=== PATIENT | male | born 1935 | race Caucasian/White ===

== ENCOUNTER 2022-11-17 08:47 | Outpatient (OUT) | payer MEDICARE, SELFPAY ==
[2022-11-17 09:24] LABS: INR 1.84; Prothrombin Time 18.8 sec (9.0-11.6)
== END 2022-11-17 08:48 | disposition home or self-care (01) ==
PROVIDERS: PCP Family Medicine; Visit Provider Nurse Practitioner Family
DX: I48.0 Paroxysmal atrial fibrillation (principal)
CPT/HCPCS: 36415; 85610

== ENCOUNTER 2022-12-06 08:56 | Outpatient (OUT) | payer MEDICARE, SELFPAY ==
[2022-12-06 10:18] LABS: INR 2.43; Prothrombin Time 24.5 sec (9.0-11.6)
== END 2022-12-06 08:57 | disposition home or self-care (01) ==
PROVIDERS: PCP Family Medicine; Visit Provider Nurse Practitioner Family
DX: I48.0 Paroxysmal atrial fibrillation (principal)
CPT/HCPCS: 36415; 85610

== ENCOUNTER 2023-01-10 09:15 | Outpatient (OUT) | payer MEDICARE, SELFPAY ==
[2023-01-10 09:46] LABS: INR 2.86; Prothrombin Time 28.6 sec (9.0-11.6)
== END 2023-01-10 09:16 | disposition home or self-care (01) ==
PROVIDERS: PCP Family Medicine; Visit Provider Nurse Practitioner Family
DX: I48.0 Paroxysmal atrial fibrillation (principal)
CPT/HCPCS: 36415; 85610

== ENCOUNTER 2023-02-13 09:05 | Outpatient (OUT) | payer MEDICARE, SELFPAY ==
[2023-02-13 09:51] LABS: INR 2.43; Prothrombin Time 24.5 sec (9.0-11.6)
== END 2023-02-13 09:06 | disposition home or self-care (01) ==
LOC: LAB 09:06
PROVIDERS: PCP Family Medicine
DX: I48.0 Paroxysmal atrial fibrillation (principal)
CPT/HCPCS: 36415; 85610

== ENCOUNTER 2023-03-16 09:03 | Outpatient (OUT) | payer MEDICARE, SELFPAY ==
[2023-03-16 10:00] LABS: Prothrombin Time 20.4 sec (9.0-11.6)
== END 2023-03-16 09:04 | disposition home or self-care (01) ==
PROVIDERS: PCP Family Medicine; Visit Provider Nurse Practitioner Family
DX: I48.0 Paroxysmal atrial fibrillation (principal)
CPT/HCPCS: 36415; 85610

== ENCOUNTER 2023-03-28 08:59 | Outpatient (OUT) | payer MEDICARE, SELFPAY ==
--- NOTE | 2023-03-28 09:05 | XR_ITS ---
The [address] [address] Patient Name: RIO HUYNH MRN: [id number] date: 1935 Sex: M Assigned Patient Location: [facility] Current Patient Location: [facility] Accession/Order Number: [id number] Exam Date: 03/28/2023 09:18 Report Date: 03/28/2023 14:50 At the request of: LOU BRUSH Procedure: XR cervical spine 2-3V EXAMINATION: XR cervical spine 2-3V HISTORY: Neck Pain M54.2 ; chronic posterior-left neck pain radiating to the ear COMPARISON: No relevant comparison available. FINDINGS: BONES: Multilevel degenerative changes of the facet joints; no disruption or abnormal widening. Normal height and alignment of the vertebral bodies. DISC SPACES: Moderate narrowing C3-4 and C6-7. Mild narrowing C5-6. PARASPINOUS: Negative. No paraspinous abnormality is seen. OTHER: Negative. XR/XR cervical spine 2-3V IMPRESSION: 1. 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 No acute abnormality. Electronically authenticated by: JIE ROBERTS Date: 03/28/2023 14:50
== END 2023-03-28 09:00 | disposition home or self-care (01) ==
LOC: RAD 09:00
PROVIDERS: PCP Family Medicine; Visit Provider Family Medicine
DX: M54.2 Cervicalgia (principal); I48.0 Paroxysmal atrial fibrillation
CPT/HCPCS: 72040

== ENCOUNTER 2023-04-17 09:19 | Outpatient (OUT) | payer MEDICARE, SELFPAY ==
[2023-04-17 10:07] LABS: INR 1.68; Prothrombin Time 17.3 sec (9.0-11.6)
== END 2023-04-17 09:20 | disposition home or self-care (01) ==
PROVIDERS: PCP Family Medicine; Visit Provider Nurse Practitioner Family
DX: I48.0 Paroxysmal atrial fibrillation (principal)
CPT/HCPCS: 36415; 85610

== ENCOUNTER 2023-05-17 09:14 | Outpatient (OUT) | payer MEDICARE, SELFPAY ==
--- OUTSIDE RECORDS SUMMARY | 2023-05-17 09:19 | XMS_ITS | CCD ---
Author Name Unknown Address [address] [place] [address] [facility] [place] Care Team Providers Care Fan Blade Aligner Name Role Phone Phil Morin Unavailable Unavailable Unavailable DO Phil Morin Primary Care Provider MD Renetta Langston Attending Provider Karlie Craig Unavailable Unavailable Florentino Hernadez Unavailable Unavailable Furlong, DO Villarreal Primary Care Provider MD Renetta Langston Attending Provider Gadiel Estevez Unavailable Unavailable Furlong, DO Villareral Primary Care Provider MD Renetta Langston Attending Provider SUSANNAH, DR JARON Roger Admitting Unavailable KUNS, DR JARON Roger Consulting Unavailable SUSANNAH, DR JARON Roger Attending Unavailable FURLONG, DR PHIL Soliz Primary Care Unavailable FURLONG, DR PHIL Soliz Consulting Unavailable FURLONG, DR PHIL Soliz Admitting Unavailable FURLONG, DR PHIL Soliz Attending Unavailable FURLONG, DR PHIL Soliz Primary Care Unavailable KUNS, DR JARON Roger Consulting Unavailable SUSANNAH, DR JARON Roger Attending Unavailable FURLONG, DR PHIL Soliz Primary Care Unavailable KUNShalonda, DR JARON Roger Admitting Unavailable SUSANNAH, DR JARON Roger Consulting Unavailable SUSANNAH, DR JARON Roger Attending Unavailable KUNShalonda, DR JARON Roger Admitting Unavailable FURLONG, DR PHIL Soliz Primary Care Unavailable KUNShalonda, DR JARON Roger Consulting Unavailable SUSANNAH, DR JARON Roger Attending Unavailable SUSANNAH, DR JARON Roger Admitting Unavailable FURLONG, DR PHIL Soliz Primary Care Unavailable KUNShalonda, DR JARON Roger Consulting Unavailable KUNShalonda, DR JARON Roger Attending Unavailable KUNS, DR JARON Roger Admitting Unavailable FURLONG, DR PHIL Soliz Primary Care Unavailable FURLONG, DR PHIL Soliz Consulting Unavailable FURLONG, DR PHIL Soliz Attending Unavailable FURLONG, DR PHIL Soliz Admitting Unavailable FURLONG, DR PHIL Soliz Primary Care Unavailable FURLONG, DR PHIL Soliz Consulting Unavailable FURLONG, DR PHIL Soliz Admitting Unavailable FURLONG, DR PHIL Soliz Attending Unavailable FURLONG, DR PHIL Soliz Primary Care Unavailable FURLONG, DR PHIL Soliz Consulting Unavailable FURLONG, DR PHIL Soliz Attending Unavailable FURLONG, DR PHIL Soliz Admitting Unavailable FURLONG, DR PHIL Soliz Primary Care Unavailable FURLONG, DR PHIL Soliz Consulting Unavailable FURLONG, DR PHIL Soliz Admitting Unavailable FURLONG, DR PHIL Soliz Attending Unavailable FURLONG, DR PHIL Soliz Primary Care Unavailable FURLONG, DR PHIL Soliz Consulting Unavailable FURLONG, DR PHIL Soliz Admitting Unavailable FURLONG, DR PHIL Soliz Attending Unavailable FURLONG, DR PHIL Soliz Primary Care Unavailable FURLONG, DR PHIL Soliz Consulting Unavailable FURLONG, DR PHIL Soliz Admitting Unavailable FURLONG, DR PHIL Soliz Attending Unavailable FURLONG, DR PHIL Soliz Primary Care Unavailable FURLONG, DR PHIL Soliz Attending Unavailable FURLONG, DR PHIL Soliz Admitting Unavailable FURLONG, DR PHIL Soliz Primary Care Unavailable FURLONG, DR PHIL Soliz Consulting Unavailable HernadezFlorentino Attending Unavailable [facility], Dr. Ketan Andrews Referring Unavaila ble Furlong, Dr. Phil Forrest Primary Care Unava ilable Furlong, Dr. Phil Forrest Primary Care Unava ilable Furlong, Dr. Phil Forrest Primary Care Unava ilable Furlong, Dr. Phil Forrest Primary Care Unava ilable Furlong, Dr. Phil Forrest Primary Care Unava ilable Florentino Hernadez Referring Unavailable Honda, Dr. Rigo Webster Attending Unavailabl e Furlong, Dr. Phil Forrest Primary Care Unava ilable Furlong, Dr. Phil Forrest Primary Care Unava ilable Florentino Hernadez Referring Unavailable Honda, Dr. Rigo Webster Attending Unavailabl e HernadezFlorentino palma Referring Unavailable Furlong, Dr. Phil Forrest Primary Care Unava ilable Honda, Dr. Rigo Webster Attending Unavailabl e Florentino Hernadez Referring Unavailable Honda, Dr. Rigo Webster Attending Unavailabl e Furdestinyng, Dr. Phil Forrest Primary Care Unava ilable McGuinn II, Dr. Renetta Valero Attending Unavailable McGuinn II, Dr. Renetta Valero Referring Unavailable Furlong, Dr. Phil Forrest Primary Care Unava ilable Furlong, Dr. Phil Forrest Primary Care Unava ilable McGuinn II, Dr. Renetta Valero Attending Unavailable McGuinn II, Dr. Renetta Valero Referring Unavailable Thuener, Dr. Ketan Andrews Attending Unavaila ble Furlong, Dr. Phil Forrest Primary Care Unava ilable Florentino Hernadez Attending Unavailable Bain, Dr. George Menard Referring Unava ilable Furlong, Dr. Phil Forrest Primary Care Unava ilable Furlong, Dr. Phil Forrest Primary [facility] Unava ilable Florentino Hernadez Attending Unavailable UNKNOWN, UNKNOWN Referring Unavailable Austin, Phil Primary [facility] Provider MD Renetta Langston Attending [facility] Unavailable Renetta Langston Admitting Unavail able Renetta Langston Attending Unavail able Austin, Phil Primary Care Unavailable Renetta Langston Admitting Unavail able Renetta Langston Attending Unavail able Renetta Langston Admitting Unavail able Renetta Langston Attending Unavail able [place], [facility] Care Unavailable Renetta Langston Attending Unavail able Renetta Langston Admitting Unavail able [place], [facility] Unavailable Allergies Allergy Classification Reported Allergen(s) Allergy Type Date of Onset Reaction(s) Facility (10 sources) Aspirin; Translations: [aspirin] Drug Allergy Bleeding -[facility] 250 DO Work Phone: (1 source) No Alert Propensity to adverse reactions to drug 2 [facility] Medications Current Medications Medication Drug Class(es) Dates Sig (Normalized) Sig (Original) carvedilol 6.25 mg oral tablet (18 sources) alpha-Adrenergic Gen, beta-Adrenergic Gen Start: 04-24-2014 Carvedilol Active TABLET July 19, 2019 1:00am eplerenone 25 mg oral tablet (18 sources) Aldosterone Antagonist Start: 04-24-2014 Eplerenone Active TABLET July 19, 2019 1:00am fluticasone propionate 0.05 mg/actuat metered dose nasal spray (4 sources) Corticosteroid Start: 07-19-2019 Fluticasone Propionate Active July 19, 2019 1:00am lisinopril 2.5 mg oral tablet (19 sources) Angiotensin Converting Enzyme Inhibitor Start: 07-19-2019 Lisinopril Active TABLET July 19, 2019 1:00am rosuvastatin calcium 20 mg oral tablet (18 sources) HMG-CoA Reductase Inhibitor Start: 07-19-2019 Rosuvastatin Active TABLET July 19, 2019 1:00am warfarin sodium 5 mg oral tablet (19 sources) Vitamin K Antagonist Start: 07-19-2019 Warfarin Active TABLET July 19, 2019 1:00am Start: 04-24-2014 Warfarin Sodiu m 5 MG Oral Tablet TAKE 1 TABLET DAILY.-Managed by PCP Quantity: 30 Refills: 0 Ordered: 24-Apr-2014 DO Start : 24-Apr-2014 Active Start: 04-24-2014 Warfarin Sodiu m 2.5 MG Oral Tablet as directed by PCP Quantity: 0 Refills: 0 Ordered: 24-Apr-2014 DO Start : 24-Apr-2014 Active Completed/Discontinued Medications Medication Drug Class(es) Dates Sig (Normalized) Sig (Original) furosemide 20 mg oral tablet (12 sources) Loop Diuretic Start: 11-16-2020 take 1 tablet by mouth once daily as needed Furosemide 20 MG Oral Tablet TAKE 1 TABLET DAILY NEEDED Quantity: 90 Refills: 3 Ordered: 02-May-2021 Renetta Langston MD Start : 16-Nov-2020 Active Magnesium (3 sources) take 1 tablet by mouth once daily Magnesium 200 MG Oral Tablet TAKE 1 TABLET DAILY DIRECTED. 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 Cancer of brain and nervous system (12 sources) History of malignant neoplasm of brain; Translations: [Personal history of malignant neoplasm of brain] Episodic Cardiac dysrhythmias (20 sources) Ventricular tachycardia; Translations: [Paroxysmal ventricular tachycardia] Onset: 06-07-2022 Chronic Cardiac dysrhythmias (12 sources) Palpitations; Translations: [Palpitations] Episodic Conduction disorders (12 sources) Automatic implantable cardiac defibrillator in situ; Translations: [Automatic implantable cardiac defibrillator in situ] Chronic Coronary atherosclerosis and other heart disease (20 sources) History of myocardial infarction; Translations: [Old myocardial infarction] Chronic Disorders of lipid metabolism (12 sources) Hyperlipidemia; Translations: [Other and unspecified hyperlipidemia] Chronic Essential hypertension (12 sources) Essential hypertension; Translations: [Unspecified essential hypertension] Chronic Malignant neoplasm without specification of site (9 sources) Malignant neoplastic disease; Translations: [Other malignant neoplasm without specification of site] Chronic Melanomas of skin (16 sources) Malignant melanoma; Translations: [Melanoma of skin, site unspecified] Onset: 04-03-2022 Chronic Neoplasms of unspecified nature or uncertain behavior (6 sources) Neoplasm of uncertain behavior of skin Onset: 03-23-2022 Episodic Other aftercare (12 sources) Drug therapy finding; Translations: [Long-term (current) use of other medications] Episodic Other lower respiratory disease (12 sources) Dyspnea on exertion; Translations: [Shortness of breath] Episodic Gianna-; endo-; and myocarditis; cardiomyopathy (except that caused by tuberculosis or sexually transmitted disease) (12 sources) Cardiomyopathy; Translations: [Other primary cardiomyopathies] Chronic Phlebitis; thrombophlebitis and thromboembolism (12 sources) H/O: Deep vein thrombosis; Translations: [Personal history of venous thrombosis and embolism] Episodic Residual codes; unclassified (12 sources) Body mass index 20-24 - normal; Translations: [Body Mass Index between 19-24, adult] Episodic Residual codes; unclassified (1 source) No current problems or disability; Translations: [Other specified conditions influencing health status] Onset: 10-11-2022 Episodic Transient cerebral ischemia (12 sources) Transient cerebral ischemia; Translations: [Unspecified transient cerebral ischemia] Chronic Unclassified (1 source) Encounter for adjustment and management of automatic implantable cardiac defibrillator; Translations: [Encounter for adjustment and management of automatic implantable cardiac defibrillator] Onset: 03-20-2023 Unclassified (1 source) Ventricular tachycardia, unspecified; Translations: [Ventricular tachycardia, unspecified] Onset: 03-20-2023 Past or Other Problems Problem Classification Problem Date Documented Da te Episodic/Chronic Residual codes; unclassified (12 sources) History finding; Translations: [Other specified conditions influencing health status] Resolved: 04-24-2014 Episodic Unclassified (12 sources) Never smoked tobacco; Translations: [Never a smoker] Results Test Name Value Interpretation Reference Range Facility Office Visit (Cardiology)on 01-12-2023 Follow-up visit Diagnoses/Problems Assessed Cardiomyopathy (425.4) (I42.9) 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,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) High risk medication use (V58.69) (Z79.899) Essential hypertension (401.9) (I10) 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 Prescriptions will not be filled unless you are compliant with your follow up appointments or have a follow up appointment scheduled as per instruction of your physician. Refills should be requested at the time of your visit. Pacemaker/Defibrillat or follow up per routine Follow up in [ 9] months Chief Complaint RIO JACOME is being seen for a 6-7 month follow-up of. History of Present Illness Patient returns in follow-up of problems as noted. In the interim he is done relatively well. He denies any orthopnea PND or dyspnea exertion he has had no hospitalizations for heart failure or anginal discomfort. As before he is somewhat depressed ever since the passing of his . He has none of the symptoms of coronary disease that preceded his original diagnosis. Treatment of risk factors for atherosclerotic disease including his hypertension and hyperlipidemia is reviewed and control is adequate and appropriate. Recent defibrillator checks are also reviewed with him and they demonstrate no underlying ventricular or atrial arrhythmias that would necessitate adjustments in pharmacologic therapy. Because of all the above we suggested continued therapy as before without change. Surgical History Problems History of Brain Surgery History of Cataract surgery History of Complete colonoscopy History Of Prior Surgery surgery for cancer History of Transurethral resection of bladder tumor Past Medical History Problems History of brain cancer (V10.85) (Z85.841) History of deep venous thrombosis (V12.51) (Z86.718) No pertinent past medical history Resolved Date: 24 Apr 2014 Current Meds Medication NameInstruction Carvedilol 6.25 MG Oral TabletTAKE 1 TABLET TWICE DAILY WITH MEALS. Eplerenone 25 MG Oral TabletTAKE 1 TABLET DAILY. Furosemide 20 MG Oral TabletTAKE 1 TABLET DAILY. Lisinopril 2.5 MG Oral TabletTAKE 1 TABLET DAILY. Rosuvastatin Calcium 20 MG Oral TabletTake 1 tablet daily Warfarin Sodium 5 MG Oral TabletTAKE 1 TABLET DAILY.-Managed by PCP Allergies Medication aspirin Adverse Reaction; Bleeding; Recorded By: Sherlyn Pringle; 12/13/2021 9:08:21 AM NonMedication No Known Environmental Allergies Recorded By: Rosemary Campos; 04/24/2014 1:30:55 PM No Known Food Allergies Recorded By: Rosemary Campos; 04/24/2014 1:30:55 PM Social History Problems Caffeine use (V49.89) (Z78.9) 2 cups coffee daily Never a smoker No alcohol use No illicit drug use Review of Systems Constitutional: not feeling tired. Eyes: no eyesight problems. ENT: no hearing loss and no nosebleeds. Cardiovascular: no intermittent leg claudication and as noted in HPI. Respiratory: no chronic cough and no shortness of breath. Gastrointestinal: no change in bowel habits and no blood in stools. Genitourinary: no urinary frequency and no hematuria. Skin: no skin rashes. Neurological: no seizures and no frequent falls. Psychiatric: no depression and not suicidal. All other systems have been reviewed and are negative for complaint. Vitals Vital Signs Recorded: [id number] 02:17PM Heart Rate72, Apical [id number], RUE, Sitting Cgiioaydv47, RUE, Sitting Height5 ft 9 in Yiankf209 lb BMI Amhkqbuzee59.78 kg/m2 BSA Calculated1.88 Tobacco Useb) No Falls Screening (Age 18+)a) No falls within the last year EKG done in office today. Physical Exam Constitutional: alert and in no acute distress. Eyes: no erythema, swelling or discharge from the eye . Neck: neck is supple, symmetric, trachea midline, no masses and no thyromegaly . Pulmonary: no increased work of breathing or signs of respiratory distress and lungs clear to auscultation. Cardiovascular: carotid pulses 2+ bilaterally with no bruit , JVP was normal, no thrills , regular rhythm, normal S1 and S2, no murmurs , pedal pulses 2+ bilaterally and no edema . Abdomen: abdomen non-tender, no masses and no hepatomegaly . Skin: skin warm and dry, normal skin turgor . Psychiatric judgment and insight is normal and oriented to person, place and time . Signatures Electronically signed by : Renetta Langston MD; Jan 13 2023 2:45PM EST (Author) Normal [facility] Tobacco Screening.on 023 Fall risk assessment a) No falls within the last year [facility] 250 DO Work Phone: Tobacco use status [facility] b) No [facility] 250 DO Work Phone: PROTIMEon 10-17-2022 INR Coag (PPP) [Relative time] 2.38 {INR} Normal [facility] Comment on above: Performed By: #### P T #### [facility] [address] [address] [address] Sariah Boyle INR GUIDELINES SEE BELOW Normal [facility] Comment on above: Result Comment: NHUNG RED INR: 2.0 - 3.0 CONDITIONS NOT LISTED BELOW 2.5 - 3.5 FOR PROSTHETIC HEART VALVE REPLACEMENT 2.5 - 3.5 RECURRENT THROMBOSIS Performed By: #### P T #### [facility] [address] [address] [address] Sariah Boyle PT Coag (PPP) [Time] 24.0 s Critically high 9.0-11.6 [facility] Comment on above: Performed By: #### P T #### [facility] [address] [place] [address] Dr. Sariah Boyle PROTIMEon 09-15-2022 INR Coag (PPP) [Relative time] 2.18 {INR} Normal [facility] Comment on above: Performed By: #### P T #### [facility] [address] [place] [address] Dr. Sariah Boyle INR GUIDELINES SEE BELOW Normal [facility] Comment on above: Result Comment: NHUNG RED INR: 2.0 - 3.0 CONDITIONS NOT LISTED BELOW 2.5 - 3.5 FOR PROSTHETIC HEART VALVE REPLACEMENT 2.5 - 3.5 RECURRENT THROMBOSIS Performed By: #### P T #### [facility] [address] [place] [address] Dr. Sariah Boyle PT Coag (PPP) [Time] 22.1 s Critically high 9.0-11.6 [facility] Comment on above: Performed By: #### P T #### [facility] [address] [place] [address] Dr. Sariah Boyle PROTIMEon 08-15-2022 INR Coag (PPP) [Relative time] 2.44 {INR} Normal [facility] Comment on above: Performed By: #### P T #### [facility] [address] [place] [address] Dr. Sariah Boyle INR GUIDELINES SEE BELOW Normal [facility] Comment on above: Result Comment: NHUNG RED INR: 2.0 - 3.0 CONDITIONS NOT LISTED BELOW 2.5 - 3.5 FOR PROSTHETIC HEART VALVE REPLACEMENT 2.5 - 3.5 RECURRENT THROMBOSIS Performed By: #### P T #### [facility] [address] [place] [address] Dr. Sariah Boyle PT Coag (PPP) [Time] 24.6 s Critically high 9.0-11.6 [facility] Comment on above: Performed By: #### P T #### [facility] [address] [address] [address] Sariah Boyle PROTIMEon 07-18-2022 INR Coag (PPP) [Relative time] 2.33 {INR} Normal [facility] Comment on above: Performed By: #### P T #### [facility] [address] [address] [address] Sariah Boyle INR GUIDELINES SEE BELOW Normal [facility] Comment on above: Result Comment: NHUNG RED INR: 2.0 - 3.0 CONDITIONS NOT LISTED BELOW 2.5 - 3.5 FOR PROSTHETIC HEART VALVE REPLACEMENT 2.5 - 3.5 RECURRENT THROMBOSIS Performed By: #### P T #### [facility] [address] [address] [address] Sariah Boyle PT Coag (PPP) [Time] 23.5 s Critically high 9.0-11.6 [facility] Comment on above: Performed By: #### P T #### [facility] [address] [place] [address] Dr. 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 Prescriptions will not be filled unless you are compliant with your follow up appointments or have a follow up appointment scheduled as per instruction of your physician. Refills should be requested at the time of your visit. Follow up in 6-9 months Chief Complaint RIO JACOME is being seen for a 6 month follow-up of. History of Present Illness Patient returns for follow-up of problems as noted. He is done relatively well. He denies any CHF or angina or arrhythmia symptoms. Symptoms that preceded his original diagnosis of coronary disease are discussed and he has no such symptoms. Control of risk factors including essential hypertension and hyperlipidemia is reviewed and his control is satisfactory and requires no adjustment. His ICD interrogation is lacking. Previous test results are reviewed and are satisfactory. He was encouraged to go to the clinic and have his device checked. He denies syncope or defibrillator shock. The patient states from time to time his activity intolerance but he does not give any symptoms suggestive of heart failure or angina because of this we believe his cardiac status to be stable. Surgical History Problems History of Brain Surgery History of Cataract surgery History of Complete colonoscopy History Of Prior Surgery surgery for cancer History of Transurethral resection of bladder tumor Past Medical History Problems History of brain cancer (V10.85) (Z85.841) History of deep venous thrombosis (V12.51) (Z86.718) No pertinent past medical history Resolved Date: 24 Apr 2014 Current Meds Medication NameInstruction Carvedilol 6.25 MG Oral TabletTAKE 1 TABLET TWICE DAILY WITH MEALS. Eplerenone 25 MG Oral TabletTAKE 1 TABLET DAILY. Furosemide 20 MG Oral TabletTAKE 1 TABLET DAILY. Lisinopril 2.5 MG Oral TabletTAKE 1 TABLET DAILY. Rosuvastatin Calcium 20 MG Oral TabletTake 1 tablet daily Warfarin Sodium 5 MG Oral TabletTAKE 1 TABLET DAILY.-Managed by PCP Allergies Medication aspirin Adverse Reaction; Bleeding; Recorded By: Sherlyn Pringle; 12/13/2021 9:08:21 AM NonMedication No Known Environmental Allergies Recorded By: Rosemary Campos; 04/24/2014 1:30:55 PM No Known Food Allergies Recorded By: Rosemary Campos; 04/24/2014 1:30:55 PM Social History Problems Caffeine use (V49.89) (Z78.9) 2 cups coffee daily Never a smoker No alcohol use No illicit drug use Review of Systems Constitutional: not feeling tired. Eyes: no eyesight problems. ENT: no hearing loss and no nosebleeds. Cardiovascular: no intermittent leg claudication and as noted in HPI. Respiratory: no chronic cough and no shortness of breath. Gastrointestinal: no change in bowel habits and no blood in stools. Genitourinary: no urinary frequency and no hematuria. Skin: no skin rashes. Neurological: no seizures and no frequent falls. Psychiatric: no depression and not suicidal. All other systems have been reviewed and are negative for complaint. Vitals Vital Signs Recorded: [id number] 03:41PM Heart Rate80, L Radial Rgtppqcq716, LUE, Sitting Icocaskks32, LUE, Sitting Height5 ft 9 in Awsycv625 lb BMI Dbjxrjimet82.92 kg/m2 BSA Calculated1.89 Tobacco Useb) No PHQ-2 #1. Over the last 2 weeks have you felt down, depressed or hopeless? (If yes, answer PHQ-9 below)No PHQ-2 #2. Over the last 2 weeks have you felt little interest or pleasure in doing things? (If yes, answer PHQ-9 below)No Falls Screening (Age 18+)a) No falls within the last year Physical Exam Constitutional: alert and in no acute distress. Eyes: no erythema, swelling or discharge from the eye . Neck: neck is supple, symmetric, trachea midline, no masses and no thyromegaly . Pulmonary: no increased work of breathing or signs of respiratory distress and lungs clear to auscultation. Cardiovascular: carotid pulses 2+ bilaterally with no bruit , JVP was normal, no thrills , regular rhythm, normal S1 and S2, no murmurs , pedal pulses 2+ bilaterally and no edema . Abdomen: abdomen non-tender, no masses and no hepatomegaly . Skin: skin warm and dry, normal skin turgor . Psychiatric judgment and insight is normal and oriented to person, place and time . Signatures Electronically si (more content not included)... Normal [facility] Tobacco Screening.on 023 Adult depression screening assessment No [facility] 250 DO Work Phone: Fall risk assessment a) No falls within the last year [facility] 250 DO Work Phone: Tobacco use status CP b) No [facility] 250 DO Work Phone: PROTIMEon 07-04-2022 INR Coag (PPP) [Relative time] 1.91 {INR} Normal [facility] Comment on above: Performed By: #### P T #### [facility] [address] [place], [place] [address] Dr. Sariah Boyle INR GUIDELINES SEE BELOW Normal [facility] Comment on above: Result Comment: NHUNG RED INR: 2.0 - 3.0 CONDITIONS NOT LISTED BELOW 2.5 - 3.5 FOR PROSTHETIC HEART VALVE REPLACEMENT 2.5 - 3.5 RECURRENT THROMBOSIS Performed By: #### P T #### [facility] [address] [place], [place] [address] Dr. Sariah Boyle PT Coag (PPP) [Time] 19.5 s Critically high 9.0-11.6 [facility] Comment on above: Performed By: #### P T #### [facility] [address] [place], [place] [address] Dr. Sariah Boyle Dermatopathologyon 3 Dermatopathology Name RIO JACOME Pathologist: RIGO CHRISTIAN MD Date of Procedure: 06/15/2022 Date Received: 06/16/2022 Date Reported 06/23/2022 Submitting Physician: FLORENTINO HERNADEZ MD, Location: [facility] Other External # FINAL DIAGNOSIS A. SKIN, SCALP STAGE II A , EXCISION: DERMAL NEVUS WITH AN AREA OF MELANOCYTE HYPERPLASIA, SEE NOTE. Note: Microscopic examination reveals a specimen that extends into the subcutaneous fat. There is dense solar elastosis. On the SOX-10 stain, there is a focal collection of small melanocytes in the superficial dermis. All control slides stain appropriately. At a distance approximately 20% from the inked blue margin and involving approximately 5% of the epidermal surface area, there are increased single melanocytes along the dermal-epidermal junction, highlighted by SOX-10 staining, without pagetoid extension or continuous proliferation. A re-excision of this area of melanocyte hyperplasia due to the underlying solar elastosis is recommended. B. SKIN, SCALP STAGE II B , EXCISION: MELANOCYTE HYPERPLASIA, SEE NOTE. Note: Microscopic examination reveals a specimen that extends into the subcutaneous fat. Starting at a distance approximately 10% from the inked green margin, involving approximately 15% of the epidermal surface area, there are increased single melanocytes highlighted by a SOX-10 stain. All control slides stain appropriately. A re-excision of this area is recommended. Electronically Signed Out by RIGO CHRISTIAN M.D. Note One or more of the reagents used to perform assays on this specimen MAY have contained components considered to be analyte specific reagents (ASR's). ASR's have not been cleared or approved by the U.S. Food and Drug Administration. These assays were developed and their performance characteristics determined by the Department of Pathology at [facility]. The FDA does not require this test to go through premarket FDA review. This test is used for clinical purposes. It should not be regarded as investigational or for research. This laboratory is certified under the Clinical Laboratory Improvement Amendments (CLIA) as qualified to perform high complexity clinical laboratory testing. The assays were performed with appropriate positive and negative controls which stained appropriately. Electronically Signed Out By RIGO CHRISTIAN MD/[facility] By the signature on this report, the individual or group listed as making the Final Interpretation/Diagno sis certifies that they have reviewed this case. Diagnostic interpretation performed at [facility] [address] [id number], [facility] [address] Microscopic Description: Clinical History: A, B: Melanoma was on the margin of the I stage. This is a second stage of slow mohs. ([place] office). Specimens Submitted As: A: SKIN, SCALP STAGE II A B: SKIN, SCALP STAGE II B Gross Description: A: Received in formalin, labeled A, is a camara, semi-circular, ellipsoid piece of skin measuring 25t9v6ls, oriented by the surgeon with orange ink on the bisected margin and blue ink marking the radii on either side of the central black-inked margin. The specimen is embedded en face in toto in one block. B: Received in formalin, labeled B, is a camara, semi-circular, ellipsoid piece of skin measuring 72o7q1cc, oriented by the surgeon with orange ink on the bisected margin and green ink marking the radii on either side of the central black-inked margin. The specimen is embedded en face in toto in one block. nhp/06/16/2022 The assays/tests were performed with appropriate positive and negative controls which stained appropriately. [facility] [place], [place] [id number] [place] [address], [facility] [address] Normal [facility] Comment on above: Performed By: #### D #### Dermatopathology No Panel Informationon 06-15 [facility] 250 DO Work Phone: PROTIMEon 06-07-2022 INR Coag (PPP) [Relative time] 1.44 {INR} Normal [facility] Comment on above: Performed By: #### P T #### [facility] [address] [place], [place] [address] Dr. Sariah Boyle INR GUIDELINES SEE BELOW Normal [facility] Comment on above: Result Comment: NHUNG RED INR: 2.0 - 3.0 CONDITIONS NOT LISTED BELOW 2.5 - 3.5 FOR PROSTHETIC HEART VALVE REPLACEMENT 2.5 - 3.5 RECURRENT THROMBOSIS Performed By: #### P T #### [facility] [address] [place] [id number] Sariah Boyle PT Coag (PPP) [Time] 15.0 s Critically high 9.0-11.6 [facility] Comment on above: Performed By: #### P T #### [facility] [address] [place], [place] [address] Dr. Sariah Boyle Dermatopathologyon Dermatopathology Name RIO JACOME Pathologist: RIGO CHRISTIAN MD Date of Procedure: 06/06/2022 Date Received: 06/07/2022 Date Reported 06/12/2022 Submitting Physician: FLORENTINO HERNADEZ MD, Location: [facility] Other External # FINAL DIAGNOSIS A. SKIN, OCCIPITAL SCALP A1 , EXCISION: ACTINIC DAMAGE. B. SKIN, OCCIPITAL SCALP B1 , EXCISION: ACTINIC DAMAGE. C. SKIN, OCCIPITAL SCALP C1 , EXCISION: ACTINIC DAMAGE. D. SKIN, OCCIPITAL SCALP D1 , EXCISION: ACTINIC DAMAGE. E. SKIN, OCCIPITAL SCALP E1 , EXCISION: MELANOMA IN SITU, SEE NOTE. Note: Microscopic examination reveals a specimen that extends into the subcutaneous fat. There is dense solar elastosis. At a distance of approximately twenty-five percent from the inked orange margin involving approximately ten percent of the epidermal surface area there are nests of melanocytes along the dermal-epidermal junction with moderately enlarged nuclei and moderate cytoplasm. F. SKIN, OCCIPITAL SCALP F1 , EXCISION: FOCAL MELANOCYTE HYPERPLASIA, SEE NOTE. Note: Microscopic examination reveals a specimen that extends into the subcutaneous fat. There is dense solar elastosis. At a distance of approximately fifty percent from each margin and involving approximately the middle three percent there are increased single melanocytes along the dermal-epidermal junction. While the findings could represent melanocyte hyperplasia the focality is atypical and a re-excision of this area is recommended. G. SKIN, OCCIPITAL SCALP G1 DEBULK, EXCISION: CHANGES CONSISTENT WITH PREVIOUS PROCEDURE. Electronically Signed Out by RIGO CHRISTIAN M.D. Electronically Signed Out By RIGO CHRISTIAN MD/[facility] By the signature on this report, the individual or group listed as making the Final Interpretation/Diagno sis certifies that they have reviewed this case. Diagnostic interpretation performed at [facility] [address] [id number], [facility] [address] Microscopic Description: A. Microscopic examination reveals a specimen that extends into the subcutaneous fat. There is moderate solar elastosis. B. Microscopic examination reveals a specimen that extends into the subcutaneous fat. There is moderate to dense solar elastosis. A step section was performed. C. Microscopic examination reveals a specimen that extends into the subcutaneous fat. There is dense solar elastosis. A step section was performed. D. Microscopic examination reveals a specimen that extends into the subcutaneous fat. There is dense solar elastosis. Multiple step sections were performed. G. Microscopic examination reveals a specimen that extends into the subcutaneous fat. An area with horizontally oriented collagen and vertically oriented vessels is present. Step sections were performed. Clinical History: Non-ulcerated melanoma, lentigo stage I maligna type. Path #: [id number]. A1, B1, C1, D1, E1, F1, G1. Excision. ([facility]). Specimens Submitted As: A: SKIN, OCCIPITAL SCALP A1 B: SKIN, OCCIPITAL SCALP B1 C: SKIN, OCCIPITAL SCALP C1 D: SKIN, OCCIPITAL SCALP D1 E: SKIN, OCCIPITAL SCALP E1 F: SKIN, OCCIPITAL SCALP F1 G: SKIN, OCCIPITAL SCALP G1 DEBULK Gross Description: A: Received in formalin, labeled A1, is a camara, ellipsoid piece of skin measuring 53o0k9tt, oriented by the surgeon with yellow ink on one margin, orange ink on the opposite margin, and black ink marking the margin opposite the surgical margin. The specimen is embedded en face in toto in one block. B: Received in formalin, labeled B1, is a camara, ellipsoid piece of skin measuring 67l5u6dg, oriented by the surgeon with orange ink on one surgical margin, green ink on the opposite margin, black ink marking the margin opposite the surgical margin. The specimen is embedded en face in toto in one block. C: Received in formalin, labeled C1, is a camara, ellipsoid piece of skin measuring 01i6l2on, oriented by the surgeon with green ink on one margin, yellow ink on the opposite margin, and black ink marking the margin opposite the surgical margin. The specimen is embedded en face in toto in one block. D: Received in formalin, labeled D1, is a camara, ellipsoid piece of skin measuring 24p0d9jl, oriented by the surgeon with yellow ink on one margin, red ink on the opposite margin, and black ink marking the margin opposite the surgical margin. E: Received in formalin, labeled E1, is a camara, ellipsoid piece of skin measuring 63t6t5af, oriented by the surgeon with red ink on one margin, blue ink on the opposite margin, and black ink marking the margin opposite the surgical margin. F: Received in formalin, labeled F1, is a camara, ellipsoid piece of skin measuring 19g0z3mb, oriented by the surgeon with blue ink on one margin, yellow ink on the opposite margin, and black ink marking the margin opposite the surgical margin. G: Received in formalin, labeled G1, (more content not included)... Normal [facility] Comment on above: Performed By: #### D #### Dermatopathology No Panel Informationon 06-06 [facility] 250 DO Work Phone: PROTIMEon 05-08-2022 INR Coag (PPP) [Relative time] 2.06 {INR} Normal [facility] Comment on above: Performed By: #### P T #### [facility] [address] [place] [address] [address] Sariah Boyle INR GUIDELINES SEE BELOW Normal [facility] Comment on above: Result Comment: NHUNG RED INR: 2.0 - 3.0 CONDITIONS NOT LISTED BELOW 2.5 - 3.5 FOR PROSTHETIC HEART VALVE REPLACEMENT 2.5 - 3.5 RECURRENT THROMBOSIS Performed By: #### P T #### [facility] [address] [place] [address] Dr. Sariah Boyle PT Coag (PPP) [Time] 21.2 s Critically high 9.0-11.6 [facility] Comment on above: Performed By: #### P T #### [facility] [address] [place] [address] Dr. Sariah Boyle PROTIMEon 04-07-2022 INR Coag (PPP) [Relative time] 3.37 {INR} Normal [facility] Comment on above: Performed By: #### P T #### [facility] [address] [place] [address] Dr. Sariah Boyle INR GUIDELINES SEE BELOW Normal [facility] Comment on above: Result Comment: NHUNG RED INR: 2.0 - 3.0 CONDITIONS NOT LISTED BELOW 2.5 - 3.5 FOR PROSTHETIC HEART VALVE REPLACEMENT 2.5 - 3.5 RECURRENT THROMBOSIS Performed By: #### P T #### [facility] [address] [place] [address] Dr. Sariah Boyle PT Coag (PPP) [Time] 33.6 s Critically high 9.0-11.6 [facility] Comment on above: Performed By: #### P T #### [facility] [address] [place] [address] Dr. Sariah Boyle Initial Visit (Otolaryngolog y)on 04-03-2022 Initial Visit (Otolaryngology) Diagnoses/Problems Melanoma (172.9) (C43.9) Provider Impressions 86-year-old male referred for 2.5 mm depth posterior scalp melanoma. We discussed wide local excision and sentinel lymph node biopsy. He has had this procedure done previously so is somewhat familiar with it. We discussed recommended margins and how this information can help with staging. He does have a very significant cardiac history and we will need to obtain clearance for general anesthesia. We discussed risks of bleeding, infection, numbness, cranial neuropathies. I will also discuss this further with his son after further discussion with patient and son he does not want to proceed with SLNB or imaging. Patient states that he would not proceed with additional treatment if lymph nodes were identified. Will refer back to Dr. Joe for mohs/slow mohs to address the primary lesion Chief Complaint melanoma of the scalp History of Present Gudghnt01-[id number] man referred by Dr. Hernadez for management of a melanoma of the scalp. He was initially referred for Mohs procedure however repeat biopsy now shows 2.5 mm depth and he is ere to discuss WLE and SLN. 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 Sotomayor. That was in 2013. He has not noticed any neck mass. He has very significant cardiac hx with decreased cardiac function Review of Systems All other systems have been reviewed and are negative for complaint. 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) (Z95.810) Melanoma (172.9) (C43.9) Never a smoker Palpitations (785.1) (R00.2) Past myocardial infarction (412) (I25.2) SOB (shortness of breath) on exertion (786.05) (R06.02) Transient ischemic attack (TIA) (435.9) (G45.9) Ventricular tachycardia (427.1) (I47.20) Past Medical History History of brain cancer (V10.85) (Z85.841) History of deep venous thrombosis (V12.51) (Z86.718) No pertinent past medical history Resolved Date: 24 Apr 2014 Surgical History History of Brain Surgery History of Cataract surgery History of Complete colonoscopy History Of Prior Surgery surgery for cancer History of Transurethral resection of bladder tumor Family History Family history of hypertension (V17.49) (Z82.49) Family history of acute myocardial infarction (V17.3) (Z82.49) No pertinent family history Social History Caffeine use (V49.89) (Z78.9) 2 cups coffee daily Never a smoker No alcohol use No illicit drug use Allergies aspirin Adverse Reaction; Bleeding; Recorded By: Sherlyn Pringle; 12/13/2021 9:08:21 AM No Known Environmental Allergies Recorded By: Rosemary Campos; 04/24/2014 1:30:55 PM No Known Food Allergies Recorded By: Rosemary Campos; 04/24/2014 1:30:55 PM Current Meds Medication NameInstruction Carvedilol 6.25 MG Oral TabletTAKE 1 TABLET TWICE DAILY WITH MEALS. Furosemide 20 MG Oral TabletTAKE 1 TABLET DAILY NEEDED Lisinopril 2.5 MG Oral TabletTAKE 1 TABLET DAILY. Rosuvastatin Calcium 20 MG Oral TabletTAKE 1 TABLET DAILY. Warfarin Sodium 5 MG Oral TabletTAKE 1 TABLET DAILY.-Managed by PCP Vitals Vital Signs Recorded: 03Apr2022 02:27PM Height5 ft 9 in Mgjxnu269 lb BMI Teasuumvsb64.92 kg/m2 BSA Calculated1.89 Tobacco Useb) No Falls Screening (Age 18+)a) No falls within the last year Physical Exam CONSTITUTIONAL: Vitals -deferred due to covid precautions, well developed, well nourished. VOICE: normal RESPIRATION: Breathing comfortably, no stridor. CV: No clubbing/cyanosis/mona ma in hands. EYES: EOM Intact, sclera normal. NEURO: Alert and oriented times 3, Cranial nerves II-XII intact and symmetric bilaterally. HEAD AND FACE: biopsy site on posterior scalp SALIVARY GLANDS: Parotid and submandibular glands normal bilaterally. EARS: surgical changes to left ear, EAC clear bilaterally NOSE: External nose midline, anterior rhinoscopy is normal with limited visualization to the anterior aspect of the interior turbinates. No lesions noted. ORAL CAVITY/OROPHARYNX/LIP S: Normal mucous membranes, normal floor of mouth/tongue/OP, no masses or lesions are noted. PHARYNGEAL FIELDS: No masses noted. Mucosa appears clean and moist NECK/LYMPH: No LAD, no thyroid masses. Trachea palpably midline SKIN: Neck skin is without scar or injury PSYCH: Alert and oriented with appropriate mood and affect 'Scores and Scales' Signatures Electronically signed by : Ketan Iyer MD; Apr 19 2022 6:13AM EST (Author) Normal [facility] Tobacco Screening.on 022 Fall risk assessment a) No falls within the last year [facility] Work Phone: Tobacco use status [facility] b) No [facility] Work Phone: Dermatopathologyon Dermatopathology Name RIO JACOME Pathologist: RIGO CHRISTIAN MD Date of Procedure: 03/23/2022 Date Received: 03/24/2022 Date Reported 03/27/2022 Submitting Physician: FLORENTINO HERNADEZ MD, Location: [facility] Copy To/Referring/Attendin g: GEORGE BAIN MD Other External # PHIL MORIN DO FINAL DIAGNOSIS SKIN, OCCIPITAL SCALP, EXCISION: MALIGNANT MELANOMA, BRESLOW THICKNESS 2.5 MM, SEE NOTE. Note: Microscopic examination reveals a specimen that extends into the subcutaneous fat. In slides A2 through A4 there is an asymmetric proliferation of nested and single atypical melanocytes along the dermal-epidermal junction and involving a follicular epithelium. In slides A3 and A4 predominantly there are nested and single atypical melanocytes in the dermis. There is also a focus of nests of benign appearing melanocytes in the dermis. A step section was performed. Electronically Signed Out by RIGO CHRISTIAN M.D. CASE SUMMARY REPORT A. SKIN, OCCIPITAL SCALP: SPECIMEN Procedure: Re-excision Specimen Laterality: Not specified TUMOR Tumor Site: Skin of scalp and neck: Occipital scalp Histologic Type: Lentigo maligna melanoma Maximum Tumor ([place]) Thickness (Millimeters): 2.5 mm Macroscopic Satellite Nodule(s): Not identified Ulceration: Not identified Anatomic (Red) Level: IV (Melanoma invades reticular dermis) Mitotic Rate: 1 mitoses per mm2 Microsatellite(s): Not identified Lymphovascular Invasion: Not identified Neurotropism: Not identified Tumor-Infiltrating Lymphocytes: Present, nonbrisk Tumor Regression: Not identified MARGINS Margin Status for Invasive Melanoma: All margins negative for invasive melanoma Closest Margin Location(s) to Invasive Melanoma: Not possible Distance from Invasive Melanoma to Peripheral Margin: 2.5 mm Distance from Invasive Melanoma to Deep Margin: 2.5 mm Margin Status for Melanoma in situ: All margins negative for melanoma in situ Distance from Melanoma in Situ to Peripheral Margin: 0.4 mm Distance from Melanoma in Situ to Deep Margin: 1.1 mm REGIONAL LYMPH NODES Regional Lymph Node Status: Not applicable (no regional lymph nodes submitted or found) DISTANT METASTASIS PATHOLOGIC STAGE CLASSIFICATION (pTNM, AJCC 8th Edition) Reporting of pT, pN, and (when applicable) pM categories is based on information available to the pathologist at the time the report is issued. As per the AJCC (Chapter 1, 8th Ed.) it is the managing physician?s responsibility to establish the final pathologic stage based upon all pertinent information, including but potentially not limited to this pathology report. pT Category: pT3a pN Category: pN not assigned (no nodes submitted or found) ADDITIONAL FINDINGS Additional Findings: Associated nevus: Dermal nevus ADDITIONAL TESTING [employer] Super[employer] 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 Electronically Signed Out By RIGO CHRISTIAN MD/[facility] By the signature on this report, the individual or group listed as making the Final Interpretation/Diagno sis certifies that they have reviewed this case. Diagnostic interpretation performed at [facility]atopath [facility] [address] [place] [address] Clinical History: Previously parietal biopsy. Narrow excisional biopsy today for confirmation of depth. ([place] office). Specimens Submitted As: A: SKIN, OCCIPITAL SCALP Gross Description: Received in formalin is one camara-brown, ellipsoid piece of skin measuring [id number]. The specimen is inked and embedded in toto in four blocks. The tips are in Block A1. dcp/03/25/2022 [facility] [place], [place] [address] [place] [address] Comment on above: Performed By: #### D #### Dermatopathology No Panel Informationon 03-23 [facility] [place] Work Phone: PROTIMEon 03-06-2022 INR Coag (PPP) [Relative time] 2.08 {INR} Normal [facility] Comment on above: Performed By: #### P T #### [facility] [address] [place] [address] Dr. Sariah Boyle INR GUIDELINES SEE BELOW Normal [facility] Comment on above: Result Comment: NHUNG RED INR: 2.0 - 3.0 CONDITIONS NOT LISTED BELOW 2.5 - 3.5 FOR PROSTHETIC HEART VALVE REPLACEMENT 2.5 - 3.5 RECURRENT THROMBOSIS Performed By: #### P T #### [facility] [address] [place] [address] [address] Sariah Boyle PT Coag (PPP) [Time] 21.4 s Critically high 9.0-11.6 [facility] Comment on above: Performed By: #### P T #### [facility] [address] [place] [address] Dr. Sariah Boyle Dermatopathologyon Dermatopathology Name: VIANEY JACOME Pathologist: RIGO CHRISTIAN MD Date of Procedure: 02/16/2022 Date Received: 02/16/2022 Date Reported 02/21/2022 Submitting Physician: FLORENTINO HERNADEZ MD, Location: [facility] Copy To/Referring/Attendin g: MD GADIEL REEVES FINAL DIAGNOSIS 2 SLIDES, [facility] #[id number] (BX: 02/06/2022) SKIN, OCCIPITAL SCALP, SHAVE BIOPSY: MALIGNANT MELANOMA, BRESLOW THICKNESS 0.6 MM IN ASSOCIATION WITH A DERMAL NEVUS, PRESENT ON THE DEEP AND PERIPHERAL MARGIN, SEE NOTE. Note: Microscopic examination reveals a specimen that extends into the mid reticular dermis. There is an asymmetric proliferation of nested and single melanocytes along the dermal-epidermal junction. There are nests of benign appearing melanocytes in the dermis and there are areas of dermal fibrosis with nests of atypical melanocytes in the dermis. Electronically Signed Out by RIGO CHRISTIAN M.D. CANCER SUMMARY REPORT A. 2 SLIDES, [facility] #[id number] (BX: 02/06/2022): SPECIMEN Procedure: Biopsy, shave Specimen Laterality: Not specified TUMOR Tumor Site: Skin of scalp and neck: Occipital scalp Histologic Type: Superficial spreading melanoma (low-cumulative sun damage (CSD) melanoma) Maximum Tumor ([place]) Thickness (Millimeters): 0.6 mm Ulceration: Not identified Anatomic (Red) Level: III (melanoma fills and expands papillary dermis) Mitotic Rate: None identified Microsatellite(s): Not identified Lymphovascular Invasion: Not identified Neurotropism: Not identified Tumor-Infiltrating Lymphocytes: Not identified Tumor Regression: Not identified MARGINS Margin Status for Invasive Melanoma: All margins negative for invasive melanoma Closest Margin(s) to Invasive Melanoma: Not possible Distance from Invasive Melanoma to Closest Peripheral Margin: 1 mm Distance from Invasive Melanoma to Deep Margin: 0.2 mm Margin Status for Melanoma in situ: Melanoma in situ present at margin Margin(s) Involved by Melanoma in Situ: Peripheral Deep: At the periphery PATHOLOGIC STAGE CLASSIFICATION (pTNM, AJCC 8th Edition) Reporting of pT categories is based on information available to the pathologist at the time the report is issued. As per the AJCC (Chapter 1, 8th Ed.) it is the managing physician?s responsibility to establish the final pathologic stage based upon all pertinent information, including but potentially not limited to this pathology report. pT Category: pT1a ADDITIONAL FINDINGS Additional Findings: Dermal nevus ADDITIONAL TESTING [employer] Supervisor Blocks: Normal Block: None Tumor Block: A1 and A2 Electronically Signed Out By RIGO CHRISTIAN MD/GARY Diagnostic interpretation performed at [facility] [address] [place] [address], [place] [address] Clinical History: SHAVE/ 2.9 X 2.4CM BCC VS SCC VS MELANOMA VS OTHER Specimens Submitted As: A: 2 SLIDES, [facility] #[id number] (BX: 02/06/2022) Gross Description: Received for consultation from [facility] are two slides labeled [id number] (BX: 02/06/2022) along with the corresponding pathology report. Slide/Block Description 2 SLIDES, [id number]. Keep Slides: N Slides Returned: N Personal Consult: N Normal [facility] Comment on above: Performed By: #### D #### Dermatopathology PROTIMEon 02-03-2022 INR Coag (PPP) [Relative time] 1.83 {INR} Normal [facility] Comment on above: Performed By: #### P T #### [facility] [address] [place] [address] Dr. Sariah Boyle INR GUIDELINES SEE BELOW Normal [facility] Comment on above: Result Comment: NHUNG RED INR: 2.0 - 3.0 CONDITIONS NOT LISTED BELOW 2.5 - 3.5 FOR PROSTHETIC HEART VALVE REPLACEMENT 2.5 - 3.5 RECURRENT THROMBOSIS Performed By: #### P T #### [facility] [address] [place] [address] [address] Sariah Boyle PT Coag (PPP) [Time] 19.0 s Critically high 9.0-11.6 [facility] Comment on above: Performed By: #### P T #### [facility] [address] [place] [address] Dr. Sariah Boyle PROTIMEon 01-02-2022 INR Coag (PPP) [Relative time] 2.05 {INR} Normal [facility] Comment on above: Performed By: #### P T #### [facility] [address] [place] [address] Dr. Sariah Boyle INR GUIDELINES SEE BELOW Normal [facility] Comment on above: Result Comment: NHUNG RED INR: 2.0 - 3.0 CONDITIONS NOT LISTED BELOW 2.5 - 3.5 FOR PROSTHETIC HEART VALVE REPLACEMENT 2.5 - 3.5 RECURRENT THROMBOSIS Performed By: #### P T #### [facility] [address] [place] [address] Dr. Sariah Boyle PT Coag (PPP) [Time] 21.1 s Critically high 9.0-11.6 [facility] Comment on above: Performed By: #### P T #### [facility] [address] [place] [address] Dr. Sariah Boyle Tobacco Screening.on 022 Adult depression screening assessment No [facility] 250 DO Work Phone: Fall risk assessment a) No falls within the last year [facility] 250 DO Work Phone: Tobacco use status CP b) No [facility] 250 DO Work Phone: PROTIMEon 12-02-2021 INR Coag (PPP) [Relative time] 2.22 {INR} Normal [facility] Comment on above: Performed By: #### P T #### [facility] [address] [place] [address] Dr. Sariah Boyle INR GUIDELINES SEE BELOW Normal [facility] Comment on above: Result Comment: NHUNG RED INR: 2.0 - 3.0 CONDITIONS NOT LISTED BELOW 2.5 - 3.5 FOR PROSTHETIC HEART VALVE REPLACEMENT 2.5 - 3.5 RECURRENT THROMBOSIS Performed By: #### P T #### [facility] [address] [place] [address] Dr. Sariah Boyle PT Coag (PPP) [Time] 22.8 s Critically high 9.0-11.6 [facility] Comment on above: Performed By: #### P T #### [facility] [address] [place] [address] Dr. Sariah Boyle PROTIMEon 11-18-2021 INR Coag (PPP) [Relative time] 1.95 {INR} Normal [facility] Comment on above: Performed By: #### P T #### [facility] [address] [place] [address] Dr. Sariah Boyle INR GUIDELINES SEE BELOW Normal [facility] Comment on above: Result Comment: NHUNG RED INR: 2.0 - 3.0 CONDITIONS NOT LISTED BELOW 2.5 - 3.5 FOR PROSTHETIC HEART VALVE REPLACEMENT 2.5 - 3.5 RECURRENT THROMBOSIS Performed By: #### P T #### [facility] [address] [place] [address] Dr. Sariah Boyle PT Coag (PPP) [Time] 20.2 s Critically high 9.0-11.6 [facility] Comment on above: Performed By: #### P T #### [facility] [address] [place] [address] Dr. Sariah Boyle COMPREHENSIVE METABOLIC PANE Donato 08-23-2021 Albumin [Mass/Vol] 4.1 g/dL Normal 3.6-5.1 [facility] Comment on above: Performed By: #### 1 4681, 0880 #### [facility] of [address], [address] [place] [address] Oncology Pharmacist: Jose Juan Arriola MD Albumin/Globulin [Mass ratio] 1.6 {ratio} Normal 1.0-2.5 [facility] Comment on above: Performed By: #### 1 0231, 7600 #### [facility] of [address], [address] [place] [address] Oncology Pharmacist: Jose Juan Arriola MD ALP [Catalytic activity/Vol] 61 U/L Normal 35-144 [facility] Comment on above: Performed By: #### 1 0231, 7600 #### [facility] of [address], [address] [place] [address] Oncology Pharmacist: Jose Juan Arriola MD ALT [Catalytic activity/Vol] 9 U/L Normal 9-46 [facility] Comment on above: Performed By: #### 1 0231, 7600 #### [facility] of [address], [address] [place] [address] Oncology Pharmacist: Jose Juan Arriola MD AST [Catalytic activity/Vol] 14 U/L Normal 10-35 [facility] Comment on above: Performed By: #### 1 0231, 7600 #### [facility] of [address], [address] [place] [address] Oncology Pharmacist: Jose Juan Arriola MD Bilirubin [Mass/Vol] 0.6 mg/dL Normal 0.2-1.2 [facility] Comment on above: Performed By: #### 1 0231, 7600 #### [facility] of [address], [address] [place] [address] Oncology Pharmacist: Jose Juan Arriola MD Calcium [Mass/Vol] 9.1 mg/dL Normal 8.6-10.3 [facility] Comment on above: Performed By: #### 1 0231, 7600 #### [facility] of [address], [address] [place] [address] Oncology Pharmacist: Jose Juan Arriola MD Chloride [Moles/Vol] 109 mmol/L Normal 98-110 [facility] Comment on above: Performed By: #### 1 0231, 7600 #### [facility] [address], [address] [place] [address] Oncology Pharmacist: Jose Juan Arriola MD CO2 [Moles/Vol] 26 mmol/L Normal 20-32 [facility] Comment on above: Performed By: #### 1 023, 7600 #### [facility] [place] [address] Oncology Pharmacist: Jose Juan Arriola MD Creatinine [Mass/Vol] 2.15 mg/dL High 0.70-1.[address] [facility] Comment on above: Result Comment: For patients >49 years of age, the reference limit for Creatinine is approximately 13% higher for people identified as -Syrian. Performed By: #### 1 023, 7600 #### [facility] [address], [address] [place] [address] Oncology Pharmacist: Jose Juan Arriola MD eGFR NON-AFR. DOMINICAN 27 mL/min/1.73m2 Low > OR = 60 [facility] Comment on above: Performed By: #### 1 023, 7600 #### [facility] [place] [address] Oncology Pharmacist: Jose Juan Arriola MD GFR/1.73 sq M.predicted among blacks MDRD (S/P/Bld) [Vol rate/Area] 31 mL/min/{1.73_m2} Low > OR = 60 [facility] Comment on above: Performed By: #### 1 023, 7600 #### [facility] of [address], [address] [place] [address] Oncology Pharmacist: Jose Juan Arriola MD Globulin (S) [Mass/Vol] 2.5 g/dL Normal 1.9-3.7 [facility] Comment on above: Performed By: #### 1 023, 7600 #### [facility] [place] [address] Oncology Pharmacist: Jose Juan Arriola MD Glucose [Mass/Vol] 93 mg/dL Normal 65-99 [facility] Comment on above: Result Comment: Fasting reference interval Performed By: #### 1 0231, 7600 #### [facility] [place] [address] Oncology Pharmacist: Jose Juan Arriola MD Potassium [Moles/Vol] 4.7 mmol/L Normal 3.5-5.3 [facility] Comment on above: Performed By: #### 1 0231, 7600 #### [facility] [place] [address] Oncology Pharmacist: Jose Juan Arriola MD Protein [Mass/Vol] 6.6 g/dL Normal 6.1-8.1 [facility] Comment on above: Performed By: #### 1 0231, 7600 #### [facility] [place] [address] Oncology Pharmacist: Jose Juan Arriola MD Sodium [Moles/Vol] 142 mmol/L Normal 135-146 [facility] Comment on above: Performed By: #### 1 0231, 7600 #### [facility] [place] [address] Oncology Pharmacist: Jose Juan Arriola MD Urea nitrogen [Mass/Vol] 31 mg/dL High 7-25 [facility] Comment on above: Performed By: #### 1 0231, 7600 #### [facility] [place] [address] Oncology Pharmacist: Jose Juan Arriola MD Urea nitrogen/Creatinine [Mass ratio] 14 mg/mg Normal 6-22 [facility] Comment on above: Performed By: #### 1 0231, 7600 #### [facility] [place] [address] Oncology Pharmacist: Jose Juan Arriola MD LIPID PANEL, [facility] Cholesterol [Mass/Vol] 101 mg/dL Normal <200 [facility] Comment on above: Order Comment: FASTI NG:YES FASTING: YES Performed By: #### 1 023, 7600 #### [facility] [address], [address] [place], [place] [id number] Oncology Pharmacist: Jose Juan Arriola MD Cholesterol in HDL [Mass/Vol] 40 mg/dL Normal > OR = 40 [facility] Comment on above: Order Comment: FASTI NG:YES FASTING: YES Performed By: #### 1 023, 7600 #### [facility] [address], [address] [place] [address] Oncology Pharmacist: Jose Juan Arriola MD Cholesterol in LDL [Mass/Vol] 40 mg/dL Normal [facility] Comment on above: Order Comment: FASTI NG:YES FASTING: YES Result Comment: Refe rence range: <100 Desirable range <100 mg/dL for primary prevention; <70 mg/dL for patients with CHD or diabetic patients with > or = 2 CHD risk factors. LDL-C is now calculated using the Yessi calculation, which is a validated novel method providing better accuracy than the Friedewald equation in the estimation of LDL-C. Phillip FITZGERALD et al. MERYL. 2013;310(19): 9861-3245 (http://education.Immediately.VisuMotion/faq/SBF292) Performed By: #### 1 023, 7599 #### [facility] [address], [address] [place] [address] Oncology Pharmacist: Jose Juan Arriola MD Cholesterol.total/Chol esterol in HDL [Mass ratio] 2.5 {ratio} Normal <5.0 [facility] Comment on above: Order Comment: FASTI NG:YES FASTING: YES Performed By: #### 1 023, 0 #### [facility] [address], [address] [place], [place] [id number] Oncology Pharmacist: Jose Juan Arriola MD NON HDL CHOLESTEROL 61 mg/dL (calc) Normal <130 [facility] Comment on above: Order Comment: FASTI NG:YES FASTING: YES Result Comment: For patients with diabetes plus 1 major ASCVD risk factor, treating to a non-HDL-C goal of <100 mg/dL (LDL-C of <70 mg/dL) is considered a therapeutic option. Performed By: #### 1 0231, 7600 #### [facility] [place] [address] Oncology Pharmacist: Jose Juan Arriola MD Triglyceride [Mass/Vol] 127 mg/dL Normal <150 [facility] Comment on above: Order Comment: FASTI NG:YES FASTING: YES Performed By: #### 1 0231, 7600 #### [facility] [address], [address] [place] [address] Oncology Pharmacist: Jose Juan Arriola MD Tobacco Screening.on 021 Fall risk assessment a) No falls within the last year -[facility] 250 DO Work Phone: Tobacco use status [facility]PH[facility] b) No -[facility] 250 DO Work Phone: B TYPE NATRIURETIC PEPTIDE ( BNP)on 11-03-2020 B TYPE NATRIURETIC PEPTIDE (BNP) Normal [facility] Comment on above: Result Comment: FROZ EN EDTA PLASMA IS REQUIRED TEST NOT PERFORMED No suitable specimen received. Please review the test requirements at [email or web address] Performed By: #### 9 05, 46143, 74349, 6399, 718, 899, 622, 95259, 22320 #### [facility] [address], [address] [place] [address] Oncology Pharmacist: Jose Juan Arriola MD CBC (INCLUDES DIFF/PLT)on Basophils (Bld) [#/Vol] 0.071 10*3/uL Normal 0-200 [facility] Comment on above: Performed By: #### 9 05, 42128, 93638, 6399, 718, 899, 622, 80395, 91837 #### [facility] [place] [address] Oncology Pharmacist: Jose Juan Arriola MD Basophils/100 WBC (Bld) 1.0 % Normal [facility] Comment on above: Performed By: #### 9 05, 23781, 51970, 6399, 718, 899, 622, 98684, 34657 #### [facility] of [place] [address] Oncology Pharmacist: Jose Juan Arriola MD Eosinophils (Bld) [#/Vol] 0.099 10*3/uL Normal 15-500 [facility] Comment on above: Performed By: #### 9 05, 50457, 35051, 6399, 718, 899, 622, 25720, 40981 #### [facility] of [place] [address] Oncology Pharmacist: Jose Juan Arriola MD Eosinophils/100 WBC (Bld) 1.4 % Normal [facility] Comment on above: Performed By: #### 9 05, 80173, 07355, 6399, 718, 899, 622, 93206, 13183 #### [facility] of [place] [address] Oncology Pharmacist: Jose Juan Arriola MD Erythrocyte distribution width (RBC) [Ratio] 14.4 % Normal 11.0-15.0 [facility] Comment on above: Performed By: #### 9 05, 52808, 60729, 6399, 718, 899, 622, 62323, 83156 #### [facility] of [place] [address] Oncology Pharmacist: Jose Juan Arriola MD Hematocrit (Bld) [Volume fraction] 42.7 % Normal 38.5-50.0 [facility] Comment on above: Performed By: #### 9 05, 69152, 50717, 6399, 718, 899, 622, 13533, 25755 #### [facility] of [place] [address] Oncology Pharmacist: Jose Juan Arriola MD Hemoglobin (Bld) [Mass/Vol] 13.7 g/dL Normal 13.2-17.1 [facility] Comment on above: Performed By: #### 9 05, 55393, 90338, 6399, 718, 899, 622, 34516, 03640 #### [facility] of [place] [address] Oncology Pharmacist: Jose Juan Arriola MD Lymphocytes (Bld) [#/Vol] 1.512 10*3/uL Normal 850-3900 [facility] Comment on above: Performed By: #### 9 05, 83756, 77599, 6399, 718, 899, 622, 30183, 17363 #### [facility] of [place] [address] Oncology Pharmacist: Jose Juan Arriola MD Lymphocytes/100 WBC (Bld) 21.3 % Normal [facility] Comment on above: Performed By: #### 9 05, 74387, 06007, 6399, 718, 899, 622, 17975, 89023 #### [facility] of [place] [address] Oncology Pharmacist: Jose Juan Arriola MD MCH (RBC) [Entitic mass] 28.5 pg Normal 27.0-33.0 [facility] Comment on above: Performed By: #### 9 05, 88742, 52333, 6399, 718, 899, 622, 66449, 34184 #### [facility] of [place] [address] Oncology Pharmacist: Jose Juan Arriola MD MCHC (RBC) [Mass/Vol] 32.1 g/dL Normal 32.0-36.[address] [facility] Comment on above: Performed By: #### 9 05, 66245, 82753, 6399, 718, 899, 622, 58725, 11483 #### [facility] of [place] [address] Oncology Pharmacist: Jose Juan Arriola MD MCV (RBC) [Entitic vol] 89.0 fL Normal 80.0-100.0 [facility] Comment on above: Performed By: #### 9 05, 24888, 49406, 6399, 718, 899, 622, 96100, 71363 #### [facility] of [address] [address] Oncology Pharmacist: Jose Juan Arriola MD Monocytes (Bld) [#/Vol] 0.738 10*3/uL Normal 200-950 [facility] Comment on above: Performed By: #### 9 05, 82736, 23306, 6399, 718, 899, 622, 80337, 69816 #### [facility] of [place] [address] Oncology Pharmacist: Jose Juan Arriola MD Monocytes/100 WBC (Bld) 10.4 % Normal [facility] Comment on above: Performed By: #### 9 05, 86099, 24632, 6399, 718, 899, 622, 47165, 97356 #### [facility] of [place] [address] Oncology Pharmacist: Jose Juan Arriola MD Neutrophils (Bld) [#/Vol] 4.679 10*3/uL Normal 4541-4885 [facility] Comment on above: Performed By: #### 9 05, 92054, 64416, 6399, 718, 899, 622, 04187, 60353 #### [facility] of [place] [address] Oncology Pharmacist: Jose Juan Arriola MD Neutrophils/100 WBC (Bld) 65.9 % Normal [facility] Comment on above: Performed By: #### 9 05, 06861, 45659, 6399, 718, 899, 622, 32319, 26989 #### [facility] of [place] [address] Oncology Pharmacist: Jose Juan Arriola MD Platelet mean volume (Bld) [Entitic vol] 11.4 fL Normal 7.5-12.5 [facility] Comment on above: Performed By: #### 9 05, 64794, 84816, 6399, 718, 899, 622, 24731, 38205 #### [facility] of [place] [address] Oncology Pharmacist: Jose Juan Arriola MD Platelets (Bld) [#/Vol] 229 10*3/uL Normal 140-400 [facility] Comment on above: Performed By: #### 9 05, 44800, 49301, 6399, 718, 899, 622, 48114, 90641 #### [facility] of [address], [address] [place] [address] Oncology Pharmacist: Jose Juan Arriola MD RBC (Bld) [#/Vol] 4.80 10*6/uL Normal 4.20-5.80 [facility] Comment on above: Performed By: #### 9 05, 18407, 81384, 6399, 718, 899, 622, 81827, 37784 #### [facility] of [place] [address] Oncology Pharmacist: Jose Juan Arriola MD WBC (Bld) [#/Vol] 7.1 10*3/uL Normal 3.8-10.8 [facility] Comment on above: Performed By: #### 9 05, 69650, 49367, 6399, 718, 899, 622, 18300, 18953 #### [facility] of [place] [address] Oncology Pharmacist: Jose Juan Arriola MD [facility] METABOLIC [facility] 11-03-2020 Albumin [Mass/Vol] 4.1 g/dL Normal 3.6-5.1 [facility] Comment on above: Performed By: #### 9 05, 21893, 89176, 6399, 718, 899, 622, 02403, 61457 #### [facility] of [place] [address] Oncology Pharmacist: Jose Juan Arriola MD Albumin/Globulin [Mass ratio] 1.7 {ratio} Normal 1.0-2.5 [facility] Comment on above: Performed By: #### 9 05, 70022, 26237, 6399, 718, 899, 622, 96875, 17429 #### [facility] of [place] [address] Oncology Pharmacist: Jose Juan Arriola MD ALP [Catalytic activity/Vol] 62 U/L Normal 35-144 [facility] Comment on above: Performed By: #### 9 05, 74171, 91748, 6399, 718, 899, 622, 29359, 39774 #### [facility] of [place] [address] Oncology Pharmacist: Joes Juan Arriola MD ALT [Catalytic activity/Vol] 9 U/L Normal 9-46 [facility] Comment on above: Performed By: #### 9 05, 75876, 43616, 6399, 718, 899, 622, 89101, 01480 #### [facility] of [place] [address] Oncology Pharmacist: Jose Juan Arriola MD AST [Catalytic activity/Vol] 13 U/L Normal 10-35 [facility] Comment on above: Performed By: #### 9 05, 34741, 53242, 6399, 718, 899, 622, 85408, 83799 #### [facility] of [place] [address] Oncology Pharmacist: Jose Juan Arriola MD Bilirubin [Mass/Vol] 0.7 mg/dL Normal 0.2-1.2 [facility] Comment on above: Performed By: #### 9 05, 61303, 75167, 6399, 718, 899, 622, 10740, 66231 #### [facility] of [place] [address] Oncology Pharmacist: Jose Juan Arriola MD Calcium [Mass/Vol] 9.5 mg/dL Normal 8.6-10.3 [facility] Comment on above: Performed By: #### 9 05, 07183, 36044, 6399, 718, 899, 622, 23522, 78949 #### [facility] of [place] [address] Oncology Pharmacist: Jose Juan Arriola MD Chloride [Moles/Vol] 109 mmol/L Normal 98-110 [facility] Comment on above: Performed By: #### 9 05, 32666, 09952, 6399, 718, 899, 622, 75992, 30099 #### [facility] [place] [address] Oncology Pharmacist: Jose Juan Arriola MD CO2 [Moles/Vol] 25 mmol/L Normal 20-32 [facility] Comment on above: Performed By: #### 9 05, 50891, 41732, 6399, 718, 899, 622, 69522, 16552 #### [facility] [address], [address] [place] [address] Oncology Pharmacist: Jose Juan Arriola MD Creatinine [Mass/Vol] 1.99 mg/dL High 0.70-1.[address] [facility] Comment on above: Result Comment: For patients >49 years of age, the reference limit for Creatinine is approximately 13% higher for people identified as -Syrian. Performed By: #### 9 05, 80380, 97009, 6399, 718, 899, 622, 57071, 80170 #### [facility] [place] [address] Oncology Pharmacist: Jose Juan Arriola MD eGFR NON-AFR. DOMINICAN 30 mL/min/1.73m2 Low > OR = 60 [facility] Comment on above: Performed By: #### 9 05, 33721, 47631, 6399, 718, 899, 622, 47711, 99330 #### [facility] [place] [address] Oncology Pharmacist: Jose Juan Arriola MD GFR/1.73 sq M.predicted among blacks MDRD (S/P/Bld) [Vol rate/Area] 34 mL/min/{1.73_m2} Low > OR = 60 [facility] Comment on above: Performed By: #### 9 05, 18356, 94776, 6399, 718, 899, 622, 03350, 96931 #### [facility] [place] [address] Oncology Pharmacist: Jose Juan Arriola MD Globulin (S) [Mass/Vol] 2.4 g/dL Normal 1.9-3.7 [facility] Comment on above: Performed By: #### 9 05, 95039, 27511, 6399, 718, 899, 622, 05961, 68489 #### [facility] [place] [address] Oncology Pharmacist: Jose Juan Arriola MD Glucose [Mass/Vol] 144 mg/dL High 65-99 [facility] Comment on above: Result Comment: Fasting reference interval For someone without known diabetes, a glucose value >125 mg/dL indicates that they may have diabetes and this should be confirmed with a follow-up test. Performed By: #### 9 05, 50872, 25114, 6399, 718, 899, 622, 42557, 66142 #### [facility] [place] [address] Oncology Pharmacist: Jose Juan Arriola MD Potassium [Moles/Vol] 4.9 mmol/L Normal 3.5-5.3 [facility] Comment on above: Performed By: #### 9 05, 89778, 02280, 6399, 718, 899, 622, 09554, 94384 #### [facility] [place] [address] Oncology Pharmacist: Jose Juan Arriola MD Protein [Mass/Vol] 6.5 g/dL Normal 6.1-8.1 [facility] Comment on above: Performed By: #### 9 05, 39717, 24026, 6399, 718, 899, 622, 25543, 03502 #### [facility] [place] [address] Oncology Pharmacist: Jose Juan Arriola MD Sodium [Moles/Vol] 141 mmol/L Normal 135-146 [facility] Comment on above: Performed By: #### 9 05, 37065, 65441, 6399, 718, 899, 622, 59440, 84651 #### [facility] of [place] [address] Oncology Pharmacist: Jose Juan Arriola MD Urea nitrogen [Mass/Vol] 31 mg/dL High 7-25 [facility] Comment on above: Performed By: #### 9 05, 08988, 65739, 6399, 718, 899, 622, 98087, 48063 #### [facility] of [place] [address] Oncology Pharmacist: Jose Juan Arriola MD Urea nitrogen/Creatinine [Mass ratio] 16 mg/mg Normal 6-22 [facility] Comment on above: Performed By: #### 9 05, 41211, 66191, 6399, 718, 899, 622, 85345, 86829 #### [facility] [place] [address] Oncology Pharmacist: Jose Juan Arriola MD MAGNESIUMon 11-03-2020 Magnesium [Mass/Vol] 2.1 mg/dL Normal 1.5-2.5 [facility] Comment on above: Performed By: #### 9 05, 06219, 40996, 6399, 718, 899, 622, 31826, 80208 #### [facility] [place] [address] Oncology Pharmacist: Jose Juan Arriola MD PHOSPHATE ( PHOSPHORUS)on 11-03-2020 Phosphate [Mass/Vol] 2.9 mg/dL Normal 2.1-4.3 [facility] Comment on above: Performed By: #### 9 05, 12909, 95020, 6399, 718, 899, 622, 06121, 28756 #### [facility] of [place] [address] Oncology Pharmacist: Jose Juan Arriola MD PTH, INTACT WITHOUT CALCIUMo n 11-03-2020 PARATHYROID HORMONE, INTACT 141 pg/mL High 14-64 [facility] Comment on above: Result Comment: Interpretive Guide Intact PTH Calcium ------- Normal Parathyroid Normal Normal Hypoparathyroidism Low or Low Normal Low Hyperparathyroidism Primary Normal or High High Secondary High Normal or Low Tertiary High High Non-Parathyroid Hypercalcemia Low or Low Normal High Performed By: #### 9 05, 24539, 52933, 6399, 718, 899, 622, 70946, 28794 #### [facility] [address], [address] [place] [address] Oncology Pharmacist: Jose Juan Arriola MD TSHon 11-03-2020 TSH Qn 2.08 m[IU]/L Normal 0.40-4.50 [facility] Comment on above: Performed By: #### 9 05, 18590, 20328, 6399, 718, 899, 622, 77555, 00997 #### [facility] [address], [address] [place] [address] Oncology Pharmacist: Jose Juan Arrioal MD URIC ACIDon 11-03-2020 Urate [Mass/Vol] 8.5 mg/dL High 4.0-8.0 [facility] Comment on above: Result Comment: Ther apeutic target for gout patients: <6.0 mg/dL Performed By: #### 9 05, [id number], [id number], [id number], [id number] [phone], 622, [id number], [id number] #### [facility] [address], [address] [place] [address] Oncology Pharmacist: Jose Juan Arriola MD VITAMIN D,25-OH,TOTAL,IAon 0 11-03-2020 VITAMIN D,25-OH,TOTAL,IA 20 ng/mL Low 30-100 [facility] Comment on above: Result Comment: Tayler min D Status 25-OH Vitamin D: Deficiency: <20 ng/mL Insufficiency: 20 - 29 ng/mL Optimal: > or = 30 ng/mL For 25-OH Vitamin D testing on patients on D2-supplementation and patients for whom quantitation of D2 and D3 fractions is required, the QuestAssureD(TM) 25-OH VIT D, (D2,D3), LC/MS/MS is recommended: order code [id number] (patients >2yrs). See Note 1 Note 1 For additional information, please refer to http://education.Immediately.VisuMotion/faq/UVP551 (This link is being provided for informational/ educational purposes only.) Performed By: #### 1 [id number] #### [facility] [address] [facility], [address] [place] [address] Oncology Pharmacist: Jose Juan Arriola MD [facility] CARDIAC STRESS/REST INJE CTIONon 08-07-2019 [facility] CARDIAC STRESS/REST INJECTION Patient Name: RIO JACOME STUDY: MYOCARDIAL PERFUSION STRESS TEST WITH LEXISCAN Performing facility: [facility], [address] [place] [address], [address], [address] Provider: Melanie Langston MD, [facility] PCP: Dr. Alden Morin Supervising provider: Edwige Jacobsen [facility], [facility] INDICATION: Arteriosclerotic cardiovascular disease Pre-operative risk assessment for Gallbladder scheduled at [facility] on TBA. HISTORY: Gender: M; Age: 83 y/o ; Height: 175.26 cm; Weight: 74.3336598 kg. High Cholesterol; CAD; HTN; ICD V. Tach., ICD Denies smoking. COMPARISON: Previous nuclear testing completed at [facility]. ACCESSION NUMBER(S): [id number]; [id number]; [id number] ORDERING CLINICIAN: RENETTA LANGSTON TECHNIQUE: ONE DAY protocol. Stress injection: Date:08/07/2019, 33.7 mCi of Myoview IV 20 seconds after rapid injection of Lexiscan. Rest injection: Date: 08/07/2019, mCi of Myoview IV at rest. The patient had a rapid injection of 0.4 mg of Lexiscan IV over 10 seconds. Imaging was performed by gated tomographic technique. Reason for Lexiscan: AICD STRESS TEST DATA: Resting heart rate was 70 BPM. Resting blood pressure was 142/94 mmHg. Peak blood pressure was 122/70 mmHg. Peak heart rate was 72 BPM. TEST TERMINATED DUE TO: Protocol completed FINDINGS: STRESS TEST RESULTS: Resting electrocardiogram revealed atrial pacemaker rhythm with right bundle branch block and diffuse repolarization abnormalities. There were no significant ischemic ECG changes or dysrhythmias. The patient did not have chest pains/symptoms during procedure. There was a normal recovery phase. IMAGING RESULTS: Image quality was good. Rest and stress tomographic images were reviewed and revealed abnormal perfusion. There was no evidence of ischemia by perfusion images . There was evidence of myocardial infarction by perfusion images with large area of anteroseptal, apical, inferoapical and inferoseptal myocardial infarction. There was not left ventricular dilatation with stress. Overall left ventricular systolic function appeared to be abnormal. There were regional wall motion abnormalities with severe anteroseptal, apical, inferoapical and inferoseptal hypokinesis. LVEF was 30%. TID is 0.997 and is normal. There was no evidence of attenuation artifact. IMPRESSION: Abnormal Lexiscan Myoview cardiac perfusion stress test. No myocardial ischemia by perfusion imaging. Large area of anteroseptal, apical, inferoapical and infroseptal myocardial infarction by perfusion imaging. Abnormal left ventricular systolic function. Left ventricular ejection fraction 30 %. When compared to a study from 2008 there has been no significant interval changes. Electronically signed by: EDWIGE JACOBSEN MD [facility] Reminderson 03-14-2019 Reminders - From: Qing Villegas MA To: EU - Clinical; Sent: 03/04/2019 11:29:06 EDT Show up: 03/14/2019 11:29:00 EDT Subject: Ambulatory Reminder Due Date/Time: 03/18/2019 11:29:00 EDT Reminder/Recall FISH/Cytology done 03/04/19 Negative. Normal [facility] Vital Signs Date Time Vital Sign Value Performing Clinician Faci azul 01-12-2023 14:17-0400 Body height 175.[address] Work Phone: [facility] 250 DO Work Phone: 01-12-2023 14:17-0400 Body mass index (BMI) [Ratio] 23.78 kg/m2 Phil [address] [address] Work Phone: [facility] 250 DO Work Phone: 01-12-2023 14:17-0400 Body surface area Derived from formula 1.88 m2 Phil G Furlong Work Phone: [facility] 250 DO Work Phone: 01-12-2023 14:17-0400 Body weight 73.03 kg Phil G Furlong Work Phone: [facility] 250 DO Work Phone: 01-12-2023 14:17-0400 Diastolic blood pressure 78 mm[Hg] Phil G Furlong Work Phone: [facility] 250 DO Work Phone: 01-12-2023 14:17-0400 Heart rate 72 /min Phil G Furlong Work Phone: [facility] 250 DO Work Phone: 01-12-2023 14:17-0400 Systolic blood pressure 122 mm[Hg] Phil G Furlong Work Phone: [facility] 250 DO Work Phone: 07-14-2022 15:41-0500 Body height 175.26 cm Phil G Furlong Work Phone: [facility] 250 DO Work Phone: 07-14-2022 15:41-0500 Body mass index (BMI) [Ratio] 23.92 kg/m2 Phil G Furlong Work Phone: [facility] 250 DO Work Phone: 07-14-2022 15:41-0500 Body surface area Derived from formula 1.89 m2 Phil G Furlong Work Phone: [facility] 250 DO Work Phone: 07-14-2022 15:41-0500 Body weight 73.48 kg Phil G Furlong Work Phone: [facility] 250 DO Work Phone: 07-14-2022 15:41-0500 Diastolic blood pressure 80 mm[Hg] Phil Reynagalong Work Phone: [facility] 250 DO Work Phone: 07-14-2022 15:41-0500 Heart rate 80 /min Phil Reynagalong Work Phone: [facility] 250 DO Work Phone: 07-14-2022 15:41-0500 Systolic blood pressure 130 mm[Hg] Phil Reynagalong Work Phone: [facility] 250 DO Work Phone: 06-15-2022 12:40-0500 Diastolic blood pressure 78 mm[Hg] Florentino Hernadez Dept[facility] D[facility]atology 06-15-2022 12:40-0500 Systolic blood pressure 167 mm[Hg] Florentino Hernadez [facility] 06-06-2022 08:07-0500 Diastolic blood pressure 85 mm[Hg] Florentino Hernadez [facility] 06-06-2022 08:07-0500 Systolic blood pressure 150 mm[Hg] Florentino Hernadez [facility] 04-03-2022 14:27-0500 Body height 175.26 cm Phil Reynagalong Work Phone: [facility]-Qpxzprtzwbcfsc-Gl [place] Work Phone: 04-03-2022 14:27-0500 Body mass index (BMI) [Ratio] 23.92 kg/m2 Phil Soliz Furlong Work Phone: YN-Vnbewyfbtzfses-Tc [place] Work Phone: 04-03-2022 14:27-0500 Body surface area Derived from formula 1.89 m2 Phil Reynagalong Work Phone: HM-Enizqtlxsencvl-Lf [place] Work Phone: 04-03-2022 14:27-0500 Body weight 73.48 kg Phil Reynagalong Work Phone: PI-Siuslyguratuvk-Ti [place] Work Phone: 03-23-2022 09:29-0400 Diastolic blood pressure 89 mm[Hg] Karlie Craig Dept[facility] Dermatology 03-23-2022 09:29-0400 Systolic blood pressure 160 mm[Hg] Karlie Craig [facility]at[facility] 03-23-2022 08:29-0400 Diastolic blood pressure 89 mm[Hg] Florentino Hernadez [facility]atology 03-23-2022 08:29-0400 Systolic blood pressure 160 mm[Hg] Florentino Hernadez [facility] 12-13-2021 08:48-0400 Body height 175.26 cm Phil Reynagalong Work Phone: [facility] 250 DO Work Phone: 12-13-2021 08:48-0400 Body mass index (BMI) [Ratio] 23.63 kg/m2 Phil Reynagalong Work Phone: [facility] 250 DO Work Phone: 12-13-2021 08:48-0400 Body surface area Derived from formula 1.88 m2 Phil Soliz [employer] Work Phone: [facility] [place] 250 DO Work Phone: 12-13-2021 08:48-0400 Body weight 72.58 kg Phil Reynagalong Work Phone: [facility] [place] 250 DO Work Phone: 12-13-2021 08:48-0400 Diastolic blood pressure 80 mm[Hg] Phil G Furlong Work Phone: [facility] 250 DO Work Phone: 12-13-2021 08:48-0400 Heart rate 80 /min Phil G Furlong Work Phone: [facility] 250 DO Work Phone: 12-13-2021 08:48-0400 Systolic blood pressure 128 mm[Hg] Phil G Furlong Work Phone: [facility] 250 DO Work Phone: 05-02-2021 08:27-0500 Body height 175.26 cm Phil G Furlong Work Phone: [facility] 250 DO Work Phone: 05-02-2021 08:27-0500 Body mass index (BMI) [Ratio] 24.37 kg/m2 Phil G Furlong Work Phone: [facility] 250 DO Work Phone: 05-02-2021 08:27-0500 Body surface area Derived from formula 1.9 m2 Phil G Furlong Work Phone: [facility] 250 DO Work Phone: 05-02-2021 08:27-0500 Body weight 74.84 kg Phil G Furlong Work Phone: [facility] 250 DO Work Phone: 05-02-2021 08:27-0500 Diastolic blood pressure 76 mm[Hg] Phil G Furlong Work Phone: [facility] 250 DO Work Phone: 05-02-2021 08:27-0500 Heart rate 81 /min Phil Reynagalong Work Phone: [facility] 250 DO Work Phone: 05-02-2021 08:27-0500 Systolic blood pressure 137 mm[Hg] Phil Soliz Furlong Work Phone: [facility] 250 DO Work Phone: 1934 23:00-0500 >na< Karlie Craig Dept. of Dermato logy Encounters Encounter Date Encounter Type Care Provider Facility Start: 03-20-2023 End: 03-20-2023 ambulatory Phil Furlong Facility:[facility] Start: 03-20-2023 End: 03-20-2023 ambulatory DO Phil Reynagalong Work Phone: [facility] Work Phone: Start: 03-20-2023 End: 03-20-2023 Patient encounter procedure DO Phil Reynagalong Work Phone: [facility] Start: 01-12-2023 Office outpatient vi sit 25 minutes Phil Nicoleng Work Phone: [facility] 250 DO Work Phone: Start: 01-12-2023 Patient encounter procedure Phil Nicoleng Work Phone: [facility] DO Work Phone: Start: 01-12-[address] Renetta Langston II Facility: Start: 12-04-2022 End: 12-04-[address] Phil Morin Facility:[id number] Start: 10-17-2022 End: 10-18-[address] JARON DAVALOS Facility:H1 Start: 09-15-2022 End: 09-16-[address] JARON DAVALOS Facility:H1 Start: 08-28-2022 End: 08-28-[address] Phil Morin Facility:[id number] Start: 08-28-2022 End: 08-28-2022 ambulatory DO Phil Morin Work Phone: [facility] Work Phone: Start: 08-28-2022 End: 08-28-2022 Patient encounter procedure DO Phil Morin Work Phone: [facility] Start: 08-15-2022 End: 08-16-[address] JARON DAVALOS Facility:H1 Start: 07-18-2022 End: 07-19-[address] JARON DAVALOS Facility:H1 Start: 07-14-2022 Office outpatient vi sit 25 minutes Phil Morin Work Phone: [facility] 250 DO Work Phone: Start: 07-14-[address] Phil Morin Facility: Start: 07-04-2022 End: 07-05-[address] JARON DAVALOS Facility:H1 Start: 07-03-2022 Karlie Craig [facility] of D ermatology Start: 06-16-2022 Gadiel Estevez Dept. of Dermatology Start: 06-16-2022 Telephone encounter Phil duron Work Phone: [facility] 250 DO Work Phone: Start: 06-15-2022 Florentino Hernadez Dept. of Dermatology Start: 06-15-[address] Phil Morin Facility:[id number] Start: 06-15-[address] Phil Morin Facility:[id number] Start: 06-09-2022 Rx Renewal Phli Nicole ng Work Phone: [facility] 250 DO Work Phone: Start: 06-07-2022 End: 06-08-[address] PHIL MORIN Facility:H1 Start: 06-07-2022 Florentino Hernadez Dept[facility] of Dermatology Start: 06-06-2022 ambulatory Florentino Hernadez Facility: [id number] Start: 06-06-2022 ambulatory Florentino Hernadez Facility: [id number] Start: 05-17-[address] Phil Morin Facility:[id number] Start: 05-17-2022 End: 05-17-2022 ambulatory Phil Morin Facility:[facility] Start: 05-17-2022 End: 05-17-2022 ambulatory DO Phil Morin Work Phone: [facility] Work Phone: Start: 05-17-2022 End: 05-17-2022 Patient encounter procedure DO Phil Morin Work Phone: [facility] Start: 05-08-2022 End: 05-09-[address] PHIL MORIN Facility:H1 Start: 05-01-2022 Rx Renewal Phil pool Work Phone: [facility] 250 DO Work Phone: Start: 04-07-2022 End: 04-08-[address] PHIL MORIN Facility:H1 Start: 04-04-2022 Karlie Craig Dept[facility] of D ermatology Start: 04-03-2022 Office outpatient ne w 45 minutes Phil Morin Work Phone: [facility]ly [facility] Work Phone: Start: 04-03-2022 Patient encounter procedure Phil Morin Work Phone: [facility]fe[facility]amxg[facility]vlm-Bptsi efra Work Phone: Start: 04-03-[address] Ketan Iyer Facility:[id number] Start: 03-23-2022 Florentino Hernadez Dept[facility] of Dermatology Start: 03-23-2022 ambulatory Florentino Hernadez Facility: [id number] Start: 03-23-2022 ambulatory Florentino Hernadez Facility: [id number] Start: 03-06-2022 End: 03-07-[address] PHIL MORIN Facility:H1 Start: 02-28-2022 Karlie Craig Dept[facility] of D ermatology Start: 02-16-2022 ambulatory Florentino Hernadez Facility: [id number] Start: 02-15-[address] Phil Morin Facility:[id number] Start: 02-15-2022 End: 02-15-2022 ambulatory DO Phil Morin Work Phone: [facility] Work Phone: Start: 02-15-2022 End: 02-15-2022 Patient encounter procedure DO Phil Morin Work Phone: [facility] Start: 02-03-2022 End: 02-04-[address] PHIL MORIN Facility:H1 Start: 01-02-2022 End: 01-03-[address] PHIL MORIN Facility:H1 Start: 12-13-2021 Office outpatient vi sit 25 minutes Phil Morin Work Phone: [facility] 250 DO Work Phone: Start: 12-02-2021 End: 12-16-[address] PHIL MORIN Facility:H1 Start: 11-18-2021 End: 11-19-[address] PHIL MORIN Facility:H1 Start: 05-02-2021 Office outpatient vi sit 25 minutes Phil Morin Work Phone: [facility] 250 DO Work Phone: Procedures Date Procedure Procedure Detail Performing Clinician Start: 06-15-2022 Excision malignant l esion s/n/h/f/g 2.1-3.0 cm Florentino Hernadez Start: 06-06-2022 Excision malignant: Scalp/Neck/Hands/Feet/Genit adam - 4.0cm [id number] Florentino Hernadez Start: 06-06-2022 Excision malignant: Scalp/Neck/Hands/Feet/Genit adam - 4.0cm [id number] Florentino Hernadez Start: 03-23-2022 End: 03-23-2022 Exc b9 lesion mrgn xcp sk tg t/a/l 3.1-4.0 cm Florentino Hernadez Start: 02-28-2022 Karlie Larso n Brain Surgery Phil Nicole ng Work Phone: Cataract surgery Phil Card rlong Work Phone: History Of Prior Surgery Brayan Reynagalong Work Phone: Total colonoscopy Phil Block urlong Work Phone: Transurethral resect ion of bladder neoplasm Phil Nicoleng Work Phone: Plan of Treatment Date Care Activity Detail Author Start: 10-16-2023 FUV, Provider: Renetta Langston, Status: Pen, Time: 9:00 AM FUV, Provider: Renetta Langston, Status: Pen, Time: 9:00 AM [facility] 250 DO Work Phone: Start: 01-12-2023 FUV, Provider: Renetta Langston, Status: Pen, Time: 2:10 PM FUV, Provider: Renetta Langston, Status: Pen, Time: 2:10 PM [facility] Work Phone: Start: 07-14-2022 FUV, Provider: Renetta Langston, Status: Pen, Time: 3:10 PM FUV, Provider: Renetta Langston, Status: Pen, Time: 3:10 PM [facility]-Jrividpqaywduw-Obt tlefra Work Phone: Start: 02-07-2023 FUV, Provider: Edwige Jacobsen, Status: Pen, Time: 9:10 AM FUV, Provider: Edwige Jacobsen, Status: Pen, Time: 9:10 AM [place] [address] DO Work Phone: Start: 12-13-2021 FUV, Provider: Renetta Langston, Status: Pen, Time: 8:50 AM FUV, Provider: Renetta Langston, Status: Pen, Time: 8:50 AM [place] [address] DO Work Phone: Immunizations Immunization Date Immunization Notes Care Provider Fa [facility] 02-16-2022 Fluzone High-Dose Quadrivalent 0.7 ML Intramuscular Suspension Prefilled Syringe Phil [employer] Work Phone: [place] [address] DO Work Phone: 01-28-2021 Fluad Quadrivalent 0 .5 ML Intramuscular Prefilled Syringe Phil [employer] Work Phone: [place] [address] DO Work Phone: 07-14-2020 Pfizer-BioNTech COVI D-19 Vacc 30 MCG/0.3ML Intramuscular Suspension Phil [employer] Work Phone: [place] [address] DO Work Phone: 07-01-2020 Pfizer-BioNTech COVI D-19 Vacc 30 MCG/0.3ML Intramuscular Suspension Phil [employer] Work Phone: [place] [address] DO Work Phone: 06-11-2020 Pfizer-BioNTech COVI D-19 Vacc 30 MCG/0.3ML Intramuscular Suspension Phil [employer] Work Phone: [place] [address] DO Work Phone: 04-05-2020 pneumococcal polysaccharide vaccine, 23 valent Phil [employer] Work Phone: [place] [address] DO Work Phone: 02-23-2020 Fluad Quadrivalent 0 .5 ML Intramuscular Prefilled Syringe Phil Reynagayrn Work Phone: [place] [address] DO Work Phone: 02-19-2020 influenza, seasonal, injectable [facility] Work Phone: [place] [address] DO Work Phone: 07-20-2019 pneumococcal conjuga te vaccine, 13 valent [facility] Work Phone: [place] [address] DO Work Phone: 03-12-2019 pneumococcal conjuga te vaccine, 13 valent Phil Soliz Austin Work Phone: [place] [address] DO Work Phone: 03-12-2019 Seasonal trivalent influenza vaccine, adjuvanted, preservative free Phil Soliz [place] Work Phone: [place] [address] DO Work Phone: 02-18-2019 influenza virus vacc ine, unspecified formulation [facility] Work Phone: [place] [address] DO Work Phone: 03-04-2018 influenza virus vacc ine, unspecified formulation Phil Soliz [place] Work Phone: [place] [address] DO Work Phone: 08-10-2017 tetanus toxoid, redu edwin diphtheria toxoid, and acellular pertussis vaccine, adsorbed Phil G Austin Work Phone: [place] [address] DO Work Phone: 03-21-2017 influenza virus vacc ine, unspecified formulation [facility] Work Phone: [place] [address] DO Work Phone: 03-13-2017 influenza, seasonal, injectable Phil Soliz [employer] Work Phone: [place] [address] DO Work Phone: 02-21-2016 influenza, seasonal, injectable, preservative free [facility]: [place] [address] DO Work Phone: 02-19-2016 influenza virus vacc ine, unspecified formulation [facility] Work [facility]: [place] [address] DO Work Phone: 07-31-2015 zoster vaccine, live Phil Soliz [employer] Work Phone: [place] [address] DO Work Phone: 02-18-2015 influenza virus vacc ine, unspecified formulation [facility] Work [facility]: [place] [address] DO Work Phone: 05-11-2014 pneumococcal polysaccharide vaccine, 23 valent Phil Soliz [employer] Work Phone: [place] [address] DO Work Phone: 02-18-2014 influenza virus vacc ine, unspecified formulation [facility] Work [facility]: [place] [address] DO Work Phone: 04-03-2013 pneumococcal conjuga te vaccine, 13 valent Phil Soliz [employer] Work Phone: [place] [address] DO Work Phone: 02-18-2013 influenza virus vacc ine, unspecified formulation Phil Soliz [employer] Work Phone: [place] [address] DO Work Phone: 02-18-2013 pneumococcal polysaccharide vaccine, 23 valent Phil Soliz Furlong Work Phone: [place] [address] DO Work Phone: 12-20-2011 influenza virus vacc ine, unspecified formulation Phil Reynagang Work Phone: [place] [address] DO Work Phone: 05-21-2010 influenza virus vacc ine, unspecified formulation [facility]iz [facility] Work [facility]: [place] [address] DO Work Phone: 05-21-2009 influenza virus vacc ine, unspecified formulation [facility] Work [facility]: [place] [address] DO Work Phone: 05-21-2008 influenza virus vacc ine, unspecified formulation [facility]iz [facility] Work [facility]: [place] [address] DO Work Phone: 05-21-2007 pneumococcal polysaccharide vaccine, 23 valent [facility] Work [facility]: [place] [address] DO Work Phone: 03-28-2002 pneumococcal polysaccharide vaccine, 23 valent [facility] Work [facility]: [place] [address] DO Work Phone: 1934 pneumococcal conjuga te vaccine, 7 valent Karlie Craig Dept. of Dermatology Payers Date Payer Category Payer Self-pay [id number] 1959 Private Health Insurance [id number] 1959 Private Health Insurance [id number] 1934 Unknown [id number] 2.16.840.1.999081.3.579.2.593 1934 Unknown [id number] 2.16.840.1.808370.3.579.2.593 1934 Unknown [id number] 2.16.840.1.320766.3.579.2.593 1934 Unknown [id number] 2.16.840.1.562500.3.579.2.593 1934 Unknown [id number] 2.16.840.1.358675.3.579.2.593 1934 Unknown [id number] 2.16.840.1.534678.3.579.2.593 1934 Unknown [id number] 2.16.840.1.278712.3.579.2.593 1934 Unknown [id number] 2.16.840.1.414492.3.579.2.593 1934 Unknown [id number] 2.16.840.1.584507.3.579.2.593 1934 Unknown [id number] 2.16.840.1.646640.3.579.2.593 1934 Unknown [id number] 2.16840.1.405138.3.579.2.593 1934 Unknown [id number] 2.16.840.1.872165.3.579.2.593 1934 Unknown [id number] 2.16.840.1.241008.3.579.2.593 1934 Unknown [id number] 2.16.840.1.832371.3.579.2.356 1934 Unknown [id number] 2.16.840.1.237035.3.579.2.356 1934 Unknown [id number] 2.16.840.1.114839.3.579.2.356 1934 Unknown [id number] 2.840.1.483218.3.579.2.356 1934 Unknown [id number] 2.840.1.089959.3.579.2. 1934 Unknown [id number] 2.840.1.968467.3.579.2.356 1934 Unknown [id number] 2.840.1.902892.3.579.2.356 1934 Unknown [id number] .0.1.283016.3.579.2. 1934 Unknown [id number] 2.0.1.895635.3.579.2. 1934 Unknown [id number] .0.1.699530.3.579.2. 1934 Unknown [id number] .0.1.257140.3.579.2.356 1934 Unknown [id number] .0.1.754052.3.579.2.356 1934 Unknown [id number] .0.1.355195.3.579.2. 1934 Unknown [id number] .0.1.178718.3.579.2.356 Medicare Medicare [id number] Unknown Unknown Waucoma BC/BS [id number] Unknown [id number] 2.840.1.970443.3.579.2.531 Unknown [id number] 2.840.1.273016.3.579.2.531 Unknown [id number] .840.1.309452.3.579.2.531 Unknown [id number] 2.16.840.1.438641.3.579.2.531 Social History Date Type Detail Facility No alcohol use No alcohol use [facility] 250 DO Work Phone: Comment on above: 2 cups coffee daily; Start: 07-19-2019 End: 07-19-2019 Tobacco smoking status NHIS Never smoked tobacco (finding) [facility] Start: 1934 End: 1934 Sex Assigned At Male [facility] Start: 02-28-2022 Dept. of D ermatology Goals Date Patient Goal Desired Activity /State Evaluation note Note Date & Type Note Facility Evaluation note No assessment information availa ble [facility] Work Phone: Evaluation note Note Date & Type Note Facility Evaluation note N/A Dept. of Dermato logy History of Present illness Narrative Note Date & Type Note Facility History of Present illness Narrative Patient returns in follow-up of problems as noted. He is doing well. I cannot elicit any angina CHF arrhythmia or neurologic symptomatology. Treatment of his cardiomyopathy was reviewed and he is compliant with medical therapy and denies any symptoms such as orthopnea paroxysmal nocturnal dyspnea or dyspnea with exertion. He also denies syncope near syncope palpitation or defibrillator shock.We reviewed with him his medical history and he denies symptoms. Because of all the above we will continue as is. [facility] Work [facility]: History of Present illness Narrative Note Date & Type Note Facility History of Present illness Narrative Patient returns in follow-up of problems as noted. He is doing well. I cannot elicit any angina CHF arrhythmia or neurologic symptomatology. Treatment of his cardiomyopathy was reviewed and he is compliant with medical therapy and denies any symptoms such as orthopnea paroxysmal nocturnal dyspnea or dyspnea with exertion. He also denies syncope near syncope palpitation or defibrillator shock.We reviewed with him his medical history and he denies symptoms. Because of all the above we will continue as is. [facility] Work [facility]: History of Present illness Narrative Note Date & Type Note Facility History of Present illness Narrative Patient returns for follow-up of problems as noted. In the interim he has had no clinical events. He complains, as always, of shortness of breath. Its paroxysmal, and has no rhyme or reason. He can be physically active without shortness of breath and thereafter has shortness of breath sitting at rest. His lungs are completely clear and he is no JVD. He has a little bit of leg edema. I doubt it is related to pulmonary vascular congestion. I encouraged him, though, to use his furosemide on a daily basis for the edema. He states she is only using it infrequently. Advised him that presently it appears he is compensated and no other adjustments appear necessary. Control and/or management of hypertension and hyperlipidemia is good and recent ICD checks are discussed and reviewed with him and they demonstrate no arrhythmia. He has had no atrial fibrillation and no malignant ventricular tachyarrhythmias either. He has no coronary disease symptomatology such as that that preceded his original diagnosis and subsequent evaluation because of all the above we suggest continued therapy as before [facility] 250 DO Work Phone: History of Present illness Narrative Note Date & Type Note Facility History of Present illness Narrative 86-year-old man referred by Dr. Hernadez for management of a melanoma of the scalp. He was initially referred for Mohs procedure however repeat biopsy now shows 2.5 mm depth and he is ere to discuss WLE and SLN. 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 Sotomayor. That was in 2013. He has not noticed any neck mass.He has very significant cardiac hx with decreased cardiac function [facility] Work Phone: History of Present illness Narrative Note Date & Type Note Facility History of Present illness Narrative Patient returns for follow-up of problems as noted. He is done relatively well. He denies any CHF or angina or arrhythmia symptoms. Symptoms that preceded his original diagnosis of coronary disease are discussed and he has no such symptoms. Control of risk factors including essential hypertension and hyperlipidemia is reviewed and his control is satisfactory and requires no adjustment. His ICD interrogation is lacking. Previous test results are reviewed and are satisfactory. He was encouraged to go to the clinic and have his device checked. He denies syncope or defibrillator shock. The patient states from time to time his activity intolerance but he does not give any symptoms suggestive of heart failure or angina because of this we believe his cardiac status to be stable. [facility] 250 DO Work Phone: History of Present illness Narrative Note Date & Type Note Facility History of Present illness Narrative Patient returns in follow-up of problems as noted. In the interim he is done relatively well. He denies any orthopnea PND or dyspnea exertion he has had no hospitalizations for heart failure or anginal discomfort. As before he is somewhat depressed ever since the passing of his . He has none of the symptoms of coronary disease that preceded his original diagnosis. Treatment of risk factors for atherosclerotic disease including his hypertension and hyperlipidemia is reviewed and control is adequate and appropriate. Recent defibrillator checks are also reviewed with him and they demonstrate no underlying ventricular or atrial arrhythmias that would necessitate adjustments in pharmacologic therapy. Because of all the above we suggested continued therapy as before without change. [facility] [employer] DO Work Phone: Reason for referral (narrative) Note Date & Type Note Facility Reason for referral (narrati ve) NA NA Dept. of Dermatology Summary Purpose Family History No Family History Records FoundUnknown Family Member Name Dates Details No pertinent family history: Multiple Family Members(V49.89, Z78.9) Status:Active Family history of acute myoc ardial infarction: Father(V17.3, Z82.49) Status:Active Family history of hypertensi on: Mother(V17.49, Z82.49) Status:Active Unknown Family Member Name Dates Details Family history of hypertensi on: Mother(V17.49, Z82.49) Status:Active Family history of acute myoc ardial infarction: Father(V17.3, Z82.49) Status:Active No pertinent family history: Multiple Family Members(V49.89, Z78.9) Status:Active Unknown Family Member Name Dates Details No pertinent family history: Multiple Family Members(V49.89, Z78.9) Status:Active Family history of acute myoc ardial infarction: Father(V17.3, Z82.49) Status:Active Family history of hypertensi on: Mother(V17.49, Z82.49) Status:Active Unknown Family Member Name Dates Details No pertinent family history: Multiple Family Members(V49.89, Z78.9) Status:Active Family history of acute myoc ardial infarction: Father(V17.3, Z82.49) Status:Active Family history of hypertensi on: Mother(V17.49, Z82.49) Status:Active Unknown Family Member Name Dates Details No pertinent family history: Multiple Family Members(V49.89, Z78.9) Status:Active Family history of acute myoc ardial infarction: Father(V17.3, Z82.49) Status:Active Family history of hypertensi on: Mother(V17.49, Z82.49) Status:Active Unknown Family Member Name Dates Details No pertinent family history: Multiple Family Members(V49.89, Z78.9) Status:Active Family history of acute myoc ardial infarction: Father(V17.3, Z82.49) Status:Active Family history of hypertensi on: Mother(V17.49, Z82.49) Status:Active Unknown Family Member Name Dates Details No pertinent family history: Multiple Family Members(V49.89, Z78.9) Status:Active Family history of acute myoc ardial infarction: Father(V17.3, Z82.49) Status:Active Family history of hypertensi on: Mother(V17.49, Z82.49) Status:Active Unknown Family Member Name Dates Details No pertinent family history: Multiple Family Members(V49.89, Z78.9) Status:Active Family history of acute myoc ardial infarction: Father(V17.3, Z82.49) Status:Active Family history of hypertensi on: Mother(V17.49, Z82.49) Status:Active Unknown Family Member Name Dates Details No pertinent family history: Multiple Family Members(V49.89, Z78.9) Status:Active Family history of acute myoc ardial infarction: Father(V17.3, Z82.49) Status:Active Family history of hypertensi on: Mother(V17.49, Z82.49) Status:Active Unknown Family Member Name Dates Details No pertinent family history: Multiple Family Members(V49.89, Z78.9) Status:Active Family history of acute myoc ardial infarction: Father(V17.3, Z82.49) Status:Active Family history of hypertensi on: Mother(V17.49, Z82.49) Status:Active Unknown Family Member Name Dates Details No pertinent family history: Multiple Family Members(V49.89, Z78.9) Status:Active Family history of hypertensi on: Mother(V17.49, Z82.49) Status:Active Family history of acute myoc ardial infarction: Father(V17.3, Z82.49) Status:Active Advance Directives No Advanced Directives Records Found Advance Directive Response Recorded Date/ Time Advance Directives No March 20, 2017 1:25pm Advance Directive Response Recorded Date/ Time Advance Directives No March 20, 2017 12:25pm Chief Complaint RIO JACOME is being seen for a 6 month follow-up of.RIO JACOME is being seen for a 6 month follow-up of.RIO JACOME is being seen for a 6-9 month follow-up of.melanoma of the scalpmelanoma of the scalpRIO JACOME is being seen for a 6 month follow-up of.RIO JACOME is being seen for a 6-7 month follow-up of.RIO JACOME is being seen for a 6-7 month follow-up of. Chief Complaint and Reason for Visit Chief Complaint i42.9 Additional Source Comments (unrecognized sect ion and content) No Status Records FoundNo Status Records FoundNo Status Records FoundNo Status Records FoundNo Status Records FoundNo Status Records FoundNo Status Records Found INFORMATION SOURCE (unrecogn ized section and content) DATE CREATED AUTHOR 08/08/2019 [facility] DATE CREATED AUTHOR AUTHOR'S ORGANIZ ATION 02/27/2020 Garcia Jono [facility] DATE CREATED AUTHOR AUTHOR'S ORGANIZ ATION 08/24/2021 [facility] DATE CREATED AUTHOR AUTHOR'S ORGANIZ ATION 10/27/2022 [facility] DATE CREATED AUTHOR AUTHOR'S ORGANIZ ATION 01/13/2023 [facility] DATE CREATED AUTHOR AUTHOR'S ORGANIZ ATION 01/14/2023 [email or web address] DATE CREATED AUTHOR AUTHOR'S ORGANIZ ATION 03/27/2023 [facility] Care Teams (unrecognized sec tion and content) Team Status: Active Member Role Status Dates Phil Morin , DO Primary Care Provider Active Team Status: Inactive Member Role Status Dates Phil Morin , DO Primary Care Provider Active Renetta Langston MD Attending Provider Active Goals (unrecognized section and content) Goals may be documented in a n alternate sectionGoals may be documented in an alternate sectionGoals may be documented in an alternate sectionGoals may be documented in an alternate section FOR RECORDS PERTAINING TO PATIENTS WHO ARE OR HAVE BEEN ENROLLED IN A CHEMICAL DEPENDENCY/SUBSTANCEABUSE PROGRAM, SOME INFORMATION MAY BE OMITTED. This clinical summary was aggregated from multiple sources. Caution should be exercised in using it in the provision of clinical care. This summary normalizes information from multiple sources, and as a consequence, information in this document may materially change the coding, format and clinical context of patient data. In addition, data may be omitted in some cases. CLINICAL DECISIONS SHOULD BE BASED ON THE PRIMARY CLINICAL RECORDS. [employer] provides no warranty or guarantee of the accuracy or completeness of information in this document.
[2023-05-17 10:14] LABS: INR 2.19; Prothrombin Time 22.2 sec (9.0-11.6)
== END 2023-05-17 09:15 | disposition home or self-care (01) ==
PROVIDERS: PCP Family Medicine; Visit Provider Nurse Practitioner Family
DX: I48.0 Paroxysmal atrial fibrillation (principal)
CPT/HCPCS: 36415; 85610

== ENCOUNTER 2023-06-18 11:11 | Outpatient (OUT) | payer MEDICARE, SELFPAY ==
--- OUTSIDE RECORDS SUMMARY | 2023-06-18 11:16 | XMS_ITS | CCD ---
Author Name Unknown Address [address] [place] [address] Organization [facility] Care Team Providers Care Screening Unit Registered Nurse Name Role Phone Phil Morin Unavailable Unavailable Unavailable Patience, DO Villarreal Primary Care Provider MD Renetta Langston Attending Provider Karlie Craig Unavailable Unavailable Florentino Hernadez Unavailable Unavailable Furlong, DO Villarreal Primary Care Provider MD Renetta Langston Attending Provider Gadiel Estevez Unavailable Unavailable Furlong, DO Villarreal Primary Care Provider MD Renetta Langston Attending Provider SUSANNAH, DR JARON Roger Admitting Unavailable KUNShalonda, DR JARON Roger Consulting Unavailable [...] Unavailable KUNShalonda, DR JARON Roger Attending Unavailable KUNShalonda, DR [...] PHIL Soliz Consulting Unavailable HernadezFlorentino Attending Unavailable [facility], Dr. Ketan Andrews Referring Unavaila ble [...] ilable Honda, Dr. Rigo Webster Attending Unavailabl Florentino Ellison Referring Unavailable Honda, Dr. Rigo Webster Attending [...] Care Unava ilable Florentino Hernadez Attending Unavailable UNKNOWN, UNKNOWN Referring Unavailable DO Phil Morin Primary Care Provider MD Renetta Langston Attending Provider Phil Morin Primary Care Unavailable Renetta Langston Admitting Unavail able Renetta Langston Attending Unavail able Furbret, Phil Primary Care Unavailable Renetta Langston Admitting Unavail able Renetta Langston Attending Unavail able Renetta Langston Admitting Unavail able Renetta Langston Attending Unavail able Patience, Phil Primary Care Unavailable Renetta Langston Attending Unavail able Renetta Langston Admitting Unavail able Patience, Phil Primary Care Unavailable Furdestinyng Phil PATEL Primary Care Provider [phone] PHIL MORIN Attending Unavailable PHIL MORIN Referring Unavailable PHIL MORIN G Primary Care Unavailable Allergies Allergy Classification Reported Allergen(s) Allergy Type Date of Onset Reaction(s) Facility (12 sources) Aspirin; Translations: [aspirin] Drug Allergy 2 Other (See Comments) [facility] 250 DO Work Phone: (1 source) No Alert Propensity to adverse reactions to drug 2 Dept. of Dermatology Medications Current Medications Medication Drug Class(es) Dates Sig (Normalized) Sig (Original) carvedilol 6.25 mg oral tablet (19 sources) alpha-Adrenergic Gen, beta-Adrenergic Gen Start: 04-24-2014 carvediloL (COREG) 6.25 mg tablet eplerenone 25 mg oral tablet (19 sources) Aldosterone Antagonist Start: 04-24-2014 eplerenone (INSPRA) 25 mg tablet esomeprazole 20 mg delayed release oral capsule (1 source) Proton Pump Inhibitor esomeprazo le (NexIUM) 20 mg capsule daily as needed. 0 Active fluticasone propionate 0.05 mg/actuat metered dose nasal spray (5 sources) Corticosteroid Start: 07-19-19 20 Fluticasone Propionate Active July 19, 2019 1:00am lisinopril 2.5 mg oral tablet (20 sources) Angiotensin Converting Enzyme Inhibitor Start: 07-19-19 20 Lisinopril Active TABLET July 19, 2019 1:00am rosuvastatin calcium 20 mg oral tablet (19 sources) HMG-CoA Reductase Inhibitor Start: 07-19-19 20 Rosuvastatin Active TABLET July 19, 2019 1:00am tiZANidine 2 mg oral tablet (1 source) Central alpha-2 Adrenergic Agonist Start: 03-27-20 23 take 1 tablet by mouth every eight hours as needed for muscle spasms tiZANidine (ZANAFLEX) 2 mg tablet Indications: Neck pain Take 1 tablet (2 mg total) by mouth every 8 (eight) hours as needed for muscle spasms. 30 tablet 1 03/27/2023 Active warfarin sodium 5 mg oral tablet (20 sources) Vitamin K Antagonist Start: 04-24-20 14 take 1 tablet by mouth once daily warfarin (COUMADIN) 5 mg tablet TAKE 1 TABLET BY MOUTH DAILY (DOSE SUBJECT TO CHANGE) 90 tablet 3 01/13/2023 Active Start: 04-24-2014 Warfarin Sodiu m 2.5 MG Oral Tablet as directed by PCP Quantity: 0 Refills: 0 Ordered: 24-Apr-2014 DO Start : 24-Apr-2014 Active Completed/Discontinued Medications Medication Drug Class(es) Dates Sig (Normalized) Sig (Original) furosemide 20 mg oral tablet (13 sources) Loop Diuretic Start: 11-16-2020 take 1 [...] Documented Da te Episodic/Chronic Acute myocardial infarction (10 sources) Myocardial infarction; Translations: [Acute myocardial infarction of unspecified site, episode of care unspecified] Onset: 2 03-07-2022 Chronic Cancer of bladder (13 sources) Cancer in situ of urinary bladder; 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] Onset: 2 03-07-2022 Chronic Cancer of brain and nervous system (12 sources) History of malignant neoplasm of brain; Translations: [Personal history of malignant neoplasm of brain] Episodic Cardiac dysrhythmias (20 sources) Ventricular tachycardia; Translations: [Paroxysmal ventricular tachycardia] Onset: 2 Chronic Cardiac dysrhythmias (12 sources) Palpitations; Translations: [Palpitations] Episodic Chronic kidney disease (2 sources) Chronic kidney disease; Translations: [Chronic kidney disease, unspecified] Onset: 6 03-07-2022 Chronic Conduction disorders (12 sources) Automatic implantable cardiac defibrillator in situ; Translations: [Automatic implantable cardiac defibrillator in situ] Chronic Coronary atherosclerosis and other heart disease (20 sources) History of myocardial infarction; Translations: [Old myocardial infarction] Onset: 2 05-29-2023 Chronic Diabetes mellitus with complications (1 source) Microalbuminuric diabetic nephropathy; Translations: [Type 2 diabetes mellitus with diabetic nephropathy] Onset: 8 03-07-2022 Chronic Diabetes mellitus without complication (3 sources) Type 2 diabetes mellitus without complication; Translations: [Type 2 diabetes mellitus without complications] Onset: 6 05-29-2023 Chronic Disorders of lipid metabolism (13 sources) Hyperlipidemia; Translations: [Other and unspecified hyperlipidemia] Onset: 6 03-07-2022 Chronic Essential hypertension (15 sources) Essential hypertension; Translations: [Unspecified essential hypertension] Onset: 6 05-29-2023 Chronic Glaucoma (1 source) Glaucoma; Translations: [Unspecified glaucoma] Onset: 6 03-07-2022 Chronic Hypertension with complications and secondary hypertension (3 sources) Hypertensive 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; Translations: [Hypertensive heart and chronic kidney disease with heart failure and stage 1 through stage 4 chronic kidney disease, or unspecified chronic kidney disease] Onset: 2 05-29-2023 Chronic Malignant neoplasm without specification of site (10 sources) Malignant neoplastic disease; Translations: [Other malignant neoplasm without specification of site] Onset: 2 03-07-2022 Chronic Melanomas of skin (17 sources) Malignant melanoma; Translations: [Melanoma of skin, site unspecified] Onset: 2 03-07-2022 Chronic Neoplasms of unspecified nature or uncertain behavior (6 sources) Neoplasm of uncertain behavior of skin Onset: Episodic Nutritional deficiencies (1 source) Vitamin D deficiency; Translations: [Vitamin D deficiency, unspecified] Onset: 7 03-07-2022 Chronic Osteoporosis (1 source) Osteoporosis; Translations: [Age-related osteoporosis without current pathological fracture] Onset: 2 03-07-2022 Chronic Other acquired deformities (1 source) Contracture of joint of left ankle; Translations: [Contracture, left ankle] Onset: 2 03-07-2022 Chronic Other aftercare (12 sources) Drug therapy finding; Translations: [Long-term (current) use of other medications] Episodic Other diseases of kidney and ureters (1 source) Renal mass; Translations: [Other specified disorders of kidney and ureter] Onset: 6 03-07-2022 Chronic Other ear and sense organ disorders (1 source) Asymmetrical sensorineural hearing loss; Translations: [Sensorineural hearing loss, bilateral] Onset: 2 03-07-2022 Chronic Other endocrine disorders (1 source) Hyperparathyroidism; Translations: [Hyperparathyroidism, unspecified] Onset: 2 03-07-2022 Chronic Other lower respiratory disease (13 sources) Dyspnea on exertion; Translations: [Shortness of breath] Onset: 3 05-29-2023 Episodic Gianna-; endo-; and myocarditis; cardiomyopathy (except that caused by tuberculosis or sexually transmitted disease) (13 sources) Cardiomyopathy; Translations: [Other primary cardiomyopathies] Onset: 3 05-29-2023 Chronic Peripheral and visceral atherosclerosis (2 sources) Arteriosclerotic vascular disease; Translations: [Unspecified atherosclerosis] Onset: 2 05-29-2023 Chronic Phlebitis; thrombophlebitis and thromboembolism (12 sources) H/O: Deep vein thrombosis; Translations: [Personal history of venous thrombosis and embolism] Episodic Residual codes; unclassified (1 source) No current problems or disability; Translations: [Other specified conditions influencing health status] Onset: 2 Episodic Thyroid disorders (3 sources) Hypothyroidism; Translations: [Hypothyroidism, unspecified] Onset: 8 05-29-2023 Chronic Transient cerebral ischemia (13 sources) Transient cerebral ischemia; Translations: [Unspecified transient cerebral ischemia] Onset: 2 05-29-2023 Chronic Unclassified (1 source) Encounter for adjustment and management of automatic implantable cardiac defibrillator; Translations: [Encounter for adjustment and management of automatic implantable cardiac defibrillator] Onset: 3 Unclassified (1 source) Ventricular tachycardia, unspecified; Translations: [Ventricular tachycardia, unspecified] Onset: 3 Unclassified (1 source) concerns about meds and blood pressure Onset: 4 Past or Other Problems Problem Classification Problem Date Documented Da te Episodic/Chronic Biliary tract disease (5 sources) Biliary colic; Translations: [Calculus of bile duct without cholangitis or cholecystitis without obstruction] Onset: 02-06-2020 07-19-2019 Episodic Crushing injury or internal injury (1 source) Perinephric hematoma; Translations: [Minor contusion of unspecified kidney, initial encounter] Onset: 03-07-2022 03-07-2022 Episodic Mood disorders (1 source) Mood disorders Onset: 05-29-2023 05-29-2023 Other gastrointestinal disorders (1 source) Nontraumatic hemoperitoneum; Translations: [Nontraumatic retroperitoneal hematoma] Onset: 05-29-2015 03-07-2022 Episodic Other non-epithelial cancer of skin (2 sources) Basal cell carcinoma of skin; Translations: [Basal cell carcinoma of skin of scalp and neck] Onset: 03-07-2022 03-07-2022 Episodic Other nutritional; endocrine; and metabolic disorders (1 source) Hyperuricemia; Translations: [Hyperuricemia without signs of inflammatory arthritis and tophaceous disease] Onset: 02-08-2017 03-07-2022 Episodic Other skin disorders (1 source) Actinic keratosis; Translations: [Actinic keratosis] Onset: 03-07-2022 03-07-2022 Episodic Residual codes; unclassified (13 sources) Body mass index 20-24 - normal; Translations: [Body Mass Index between 19-24, adult] Onset: 03-07-2022 03-07-2022 Episodic Residual codes; unclassified (12 sources) History finding; [...] a smoker Tobacco Use Screening; Status:Complete; Done: [id number] Ventricular tachycardia IO EKG Electrocardiogram- 12 Lead; Status:Complete; Done: [id number] Patient Instructions Please bring all medicines, vitamins, [...] negative for complaint. Vitals Vital Signs Recorded: [id number] 02:17PM Heart Rate72, Apical Ukrpcadf013, RUE, Sitting Hhrncruyf90, RUE, Sitting Height5 ft 9 in Uiyeql324 lb BMI Npvfndinzw95.78 kg/m2 BSA Calculated1.88 Tobacco Useb) No Falls [...] Jan 13 2023 2:45PM EST (Author) Normal [facility] Tobacco Screening.on 023 Fall risk assessment a) No falls within the last year [facility] 250 DO Work Phone: Tobacco use status CP b) No [facility] 250 DO Work Phone: PROTIMEon 10-17-2022 INR Coag (PPP) [Relative time] 2.38 {INR} Normal [facility] Comment on above: Performed By: #### P T #### [facility] [address] [place] [address] Dr. Sariah Boyle INR GUIDELINES SEE BELOW Normal [facility] Comment on above: Result Comment: NHUNG RED INR: 2.0 - 3.0 CONDITIONS NOT LISTED BELOW 2.5 - 3.5 FOR PROSTHETIC HEART VALVE REPLACEMENT 2.5 - 3.5 RECURRENT THROMBOSIS Performed By: #### P T #### [facility] [address] [place] [address] Dr. Sariah Boyle PT Coag (PPP) [Time] 24.0 s Critically high 9.0-11.6 [facility] Comment on above: Performed By: #### P T #### [facility] [address] [place] [address] Dr. Sariah Boyle PROTIMEon 09-15-2022 INR Coag (PPP) [Relative time] 2.18 {INR} Normal [facility] Comment on above: Performed By: #### P T #### [facility] [address] [place] [address] Dr. Sariah Boyle INR GUIDELINES SEE BELOW Normal [facility] Comment on above: Result Comment: NHUNG RED INR: 2.0 - 3.0 CONDITIONS NOT LISTED BELOW 2.5 - 3.5 FOR PROSTHETIC HEART VALVE REPLACEMENT 2.5 - 3.5 RECURRENT THROMBOSIS Performed By: #### P T #### [facility] [address] [place] [address] Dr. Sariah Boyle PT Coag (PPP) [Time] 22.1 s Critically high 9.0-11.6 [facility] Comment on above: Performed By: #### P T #### [facility] [address] [place] [address] Dr. Sariah Boyle PROTIMEon 08-15-2022 INR Coag (PPP) [Relative time] 2.44 {INR} Normal [facility] Comment on above: Performed By: #### P T #### [facility] [address] [place] [address] Dr. Sariah Boyle INR GUIDELINES SEE BELOW Normal [facility] Comment on above: Result Comment: NHUNG RED INR: 2.0 - 3.0 CONDITIONS NOT LISTED BELOW 2.5 - 3.5 FOR PROSTHETIC HEART VALVE REPLACEMENT 2.5 - 3.5 RECURRENT THROMBOSIS Performed By: #### P T #### [facility] [address] [address] [address] Sariah Boyle PT Coag (PPP) [Time] 24.6 s Critically high 9.0-11.6 [facility] Comment on above: Performed By: #### P T #### [facility] [id number] Sariah Boyle PROTIMEon 07-18-2022 INR Coag (PPP) [Relative time] 2.33 {INR} Normal [facility] Comment on above: Performed By: #### P T #### [facility] [address] [place] [address] Dr. Sariah Boyle INR GUIDELINES SEE BELOW Normal [facility] Comment on above: Result Comment: NHUNG RED INR: 2.0 - 3.0 CONDITIONS NOT LISTED BELOW 2.5 - 3.5 FOR PROSTHETIC HEART VALVE REPLACEMENT 2.5 - 3.5 RECURRENT THROMBOSIS Performed By: #### P T #### [facility] [address] [address] [address] Sariah Boyle PT Coag (PPP) [Time] 23.5 s Critically high 9.0-11.6 [facility] Comment on above: Performed By: #### P T #### [facility] [address] [place] [address] Dr. Sariah Boyle Office Visit (Cardiology)on 07-14-2022 [...] negative for complaint. Vitals Vital Signs Recorded: [id number] 03:41PM Heart Rate80, L Radial Jvpgqsiq076, LUE, Sitting Yflvjtbes41, LUE, Sitting Height5 ft 9 in Fayopr352 lb BMI Pfdihljsxt90.92 kg/m2 BSA Calculated1.89 Tobacco Useb) No PHQ-2 [...] Electronically si (more content not included)... Normal [facility] Tobacco Screening.on 023 Adult depression screening assessment No [facility] 250 DO Work Phone: Fall risk assessment a) No falls within the last year [facility] Diogenes Ovalle DO Work Phone: Tobacco use status [facility]PH[facility] b) No [facility] Diogenes Ovalle DO Work Phone: PROTIMEon 07-04-2022 INR Coag (PPP) [Relative time] 1.91 {INR} Normal [facility] Comment on above: Performed By: #### P T #### [facility] [address] [address] [address] Sariah Boyle INR GUIDELINES SEE BELOW Normal [facility] Comment on above: Result Comment: NHUNG RED INR: 2.0 - 3.0 CONDITIONS NOT LISTED BELOW 2.5 - 3.5 FOR PROSTHETIC HEART VALVE REPLACEMENT 2.5 - 3.5 RECURRENT THROMBOSIS Performed By: #### P T #### [facility] [address] [address] [address] Sariah Boyle PT Coag (PPP) [Time] 19.5 s Critically high 9.0-11.6 [facility] Comment on above: Performed By: #### P T #### [facility] [address] [address] [address] Sariah Boyle Dermatopathologyon 3 Dermatopathology Name RIO JACOME Pathologist: RIGO CHRISTIAN MD Date of Procedure: 06/15/2022 Date Received: 06/16/2022 Date Reported 06/23/2022 Submitting Physician: FLORENTINO HERNADEZ MD, Location: [facility] Other External # FINAL DIAGNOSIS [...] determined by the Department of Pathology at [facility]. The FDA does not require this test [...] Signed Out By RIGO CHRISTIAN MD/[facility] By the signature on this report, the individual or group listed as making the Final Interpretation/Diagno sis certifies that they have reviewed this case. Diagnostic interpretation performed at [facility] [address] [facility], [facility] [address] Microscopic Description: Clinical History: A, B: Melanoma was on the margin of the I stage. This is a second stage of slow mohs. ([place] office). Specimens Submitted As: A: SKIN, SCALP STAGE II A B: SKIN, SCALP STAGE II B Gross Description: A: Received in formalin, labeled A, is a camara, semi-circular, ellipsoid piece of skin measuring [id number], oriented by the surgeon with orange ink on the bisected margin and blue ink marking the radii on either side of the central black-inked margin. The specimen is embedded en face in toto in one block. B: Received in formalin, labeled B, is a camara, semi-circular, ellipsoid piece of skin measuring 91v0u9up, oriented by the surgeon with orange ink on the bisected margin and green ink marking the radii on either side of the central black-inked margin. The specimen is embedded en face in toto in one block. dcp/06/16/2022 The assays/tests were performed with appropriate positive and negative controls which stained appropriately. [facility] Dermatopathology Laboratory [address] [place] [id number] [place] [address], [facility] [address] [facility] Comment on above: Performed By: #### D #### Dermatopathology No Panel Informationon 06-15 [facility] 250 DO Work Phone: PROTIMEon 06-07-2022 INR Coag (PPP) [Relative time] 1.44 {INR} Normal [facility] Comment on above: Performed By: #### P T #### [facility] [address] [address] [address] Sariah Boyle INR GUIDELINES SEE BELOW Normal [facility] Comment on above: Result Comment: NHUNG RED INR: 2.0 - 3.0 CONDITIONS NOT LISTED BELOW 2.5 - 3.5 FOR PROSTHETIC HEART VALVE REPLACEMENT 2.5 - 3.5 RECURRENT THROMBOSIS Performed By: #### P T #### [facility] [address] [address] [address] Sariah Boyle PT Coag (PPP) [Time] 15.0 s Critically high 9.0-11.6 [facility] Comment on above: Performed By: #### P T #### [facility] [address] [address] [address] Sariah Boyle Dermatopathologyon Dermatopathology Name RIO JACOME Pathologist: RIGO CHRISTIAN MD Date of Procedure: 06/06/2022 Date Received: 06/07/2022 Date Reported 06/12/2022 Submitting Physician: FLORENTINO HERNADEZ MD, Location: [facility] Other External # FINAL DIAGNOSIS [...] Signed Out By RIGO CHRISTIAN MD/[facility] By the signature on this report, the individual or group listed as making the Final Interpretation/Diagno sis certifies that they have reviewed this case. Diagnostic interpretation performed at Dermatopath Lab [address] [id number], [facility] [address] Microscopic Description: A. Microscopic examination reveals a [...] lentigo stage I maligna type. Path #: [id number]. A1, B1, C1, D1, E1, F1, G1. Excision. ([facility] Specimens Submitted As: A: SKIN, OCCIPITAL SCALP A1 B: SKIN, OCCIPITAL SCALP B1 C: SKIN, OCCIPITAL SCALP C1 D: SKIN, OCCIPITAL SCALP D1 E: SKIN, OCCIPITAL SCALP E1 F: SKIN, OCCIPITAL SCALP F1 G: SKIN, OCCIPITAL SCALP G1 DEBULK Gross Description: A: Received in formalin, labeled A1, is a camara, ellipsoid piece of skin measuring [id number], oriented by the surgeon with yellow ink on one margin, orange ink on the opposite margin, and black ink marking the margin opposite the surgical margin. The specimen is embedded en face in toto in one block. B: Received in formalin, labeled B1, is a camara, ellipsoid piece of skin measuring 79s7v2el, oriented by the surgeon with orange ink on one surgical margin, green ink on the opposite margin, black ink marking the margin opposite the surgical margin. The specimen is embedded en face in toto in one block. C: Received in formalin, labeled C1, is a acmara, ellipsoid piece of skin measuring 54l6x9qj, oriented by the surgeon with green ink on one margin, yellow ink on the opposite margin, and black ink marking the margin opposite the surgical margin. The specimen is embedded en face in toto in one block. D: Received in formalin, labeled D1, is a camara, ellipsoid piece of skin measuring 47l0t3gc, oriented by the surgeon with yellow ink on one margin, red ink on the opposite margin, and black ink marking the margin opposite the surgical margin. E: Received in formalin, labeled E1, is a camara, ellipsoid piece of skin measuring 94y7n7mi, oriented by the surgeon with red ink on one margin, blue ink on the opposite margin, and black ink marking the margin opposite the surgical margin. F: Received in formalin, labeled F1, is a camara, ellipsoid piece of skin measuring 98v3u2mn, oriented by the surgeon with blue ink on one margin, yellow ink on the opposite margin, and black ink marking the margin opposite the surgical margin. G: Received in formalin, labeled G1, (more content not included)... Normal [facility] Comment on above: Performed By: #### D #### Dermatopathology No Panel Informationon 06-06 [facility] 250 DO Work Phone: PROTIMEon 05-08-2022 INR Coag (PPP) [Relative time] 2.06 {INR} Normal [facility] Comment on above: Performed By: #### P T #### [facility] [address] [address] [address] Sariah Boyle INR GUIDELINES SEE BELOW Normal [facility] Comment on above: Result Comment: NHUNG RED INR: 2.0 - 3.0 CONDITIONS NOT LISTED BELOW 2.5 - 3.5 FOR PROSTHETIC HEART VALVE REPLACEMENT 2.5 - 3.5 RECURRENT THROMBOSIS Performed By: #### P T #### [facility] [address] [address] [address] Sariah Boyle PT Coag (PPP) [Time] 21.2 s Critically high 9.0-11.6 [facility] Comment on above: Performed By: #### P T #### [facility] [address] [place] [address] Dr. Sariah Boyle PROTIMEon 04-07-2022 INR Coag (PPP) [Relative time] 3.37 {INR} Normal [facility] Comment on above: Performed By: #### P T #### [facility] [address] [place] [address] Dr. Sariah Boyle INR GUIDELINES SEE BELOW Normal [facility] Comment on above: Result Comment: NHUNG RED INR: 2.0 - 3.0 CONDITIONS NOT LISTED BELOW 2.5 - 3.5 FOR PROSTHETIC HEART VALVE REPLACEMENT 2.5 - 3.5 RECURRENT THROMBOSIS Performed By: #### P T #### [facility] [address] [place] [address] Dr. Sariah Boyle PT Coag (PPP) [Time] 33.6 s Critically high 9.0-11.6 [facility] Comment on above: Performed By: #### P T #### [facility] [address] [address] [address] Sariah Boyle Initial Visit (Otolaryngolog y)on [...] melanoma of the scalp History of Present Iggkwtw16-qcsy-tpn man referred by Dr. Hernadez for management [...] Recorded: 03Apr2022 02:27PM Height5 ft 9 in Pmpwol169 lb BMI Coryabjnoj02.92 kg/m2 BSA Calculated1.89 Tobacco Useb) No Falls [...] No falls within the last year [facility] Work Phone: Tobacco use status [facility] b) No [facility] Work Phone: Dermatopathologyon Dermatopathology Name RIO JACOME Pathologist: RIGO CHRISTIAN MD Date of Procedure: 03/23/2022 Date Received: 03/24/2022 Date Reported 03/27/2022 Submitting Physician: FLORENTINO HERNADEZ MD, Location: [facility] Copy To/Referring/Attendin g: GEORGE BAIN [...] Findings: Associated nevus: Dermal nevus 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 Electronically Signed Out By RIGO CHRISTIAN MD/[facility] By the signature on this report, the individual or group listed as making the Final Interpretation/Diagno sis certifies that they have reviewed this case. Diagnostic interpretation performed at [facility] [address] [place] [address] Clinical History: Previously parietal biopsy. Narrow excisional biopsy today for confirmation of depth. ([place] office). Specimens Submitted As: A: SKIN, OCCIPITAL SCALP Gross Description: Received in formalin is one camara-brown, ellipsoid piece of skin measuring [id number]. The specimen is inked and embedded in toto in four blocks. The tips are in Block A1. dcp/03/25/2022 [facility] [place] [address] [place] [address] [facility] Comment on above: Performed By: #### D #### Dermatopathology No Panel Informationon 03-23 -Otolaryngol aronFidelke Work Phone: PROTIMEon 03-06-2022 INR Coag (PPP) [Relative time] 2.08 {INR} Normal [facility] Comment on above: Performed By: #### P T #### [facility] [address] [place] [address] Dr. Sariah Boyle INR GUIDELINES SEE BELOW Normal [facility] Comment on above: Result Comment: NHUNG RED INR: 2.0 - 3.0 CONDITIONS NOT LISTED BELOW 2.5 - 3.5 FOR PROSTHETIC HEART VALVE REPLACEMENT 2.5 - 3.5 RECURRENT THROMBOSIS Performed By: #### P T #### [facility] [address] [address] [address] Sariah Boyle PT Coag (PPP) [Time] 21.4 s Critically high 9.0-11.6 [facility] Comment on above: Performed By: #### P T #### [facility] [address] [place], [place] [address] Dr. Sariah Boyle Dermatopathologyon 2 Dermatopathology Name: VIANEY JACOME Pathologist: RIGO CHRISTAIN MD Date of Procedure: 02/16/2022 Date Received: 02/16/2022 Date Reported 02/21/2022 Submitting Physician: FLORENTINO HERNADEZ MD, Location: [facility] Copy To/Referring/Attendin g: MD GADIEL REEVES FINAL DIAGNOSIS 2 SLIDES, [facility] #[id number] (BX: 02/06/2022) SKIN, OCCIPITAL SCALP, SHAVE BIOPSY: [...] M.D. CANCER SUMMARY REPORT A. 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 are two slides labeled [id number] (BX: 02/06/2022) along with the corresponding pathology report. Slide/Block Description 2 SLIDES, [id number]. Keep Slides: N Slides Returned: N Personal Consult: N [facility] Comment on above: Performed By: #### D #### D[facility]atopathology PROTIMEon 02-03-2022 INR Coag (PPP) [Relative time] 1.83 {INR} Normal [facility] Comment on above: Performed By: #### P T #### [facility] [address] [address] [address] Sariah Boyle INR GUIDELINES SEE BELOW Normal [facility] Comment on above: Result Comment: NHUNG RED INR: 2.0 - 3.0 CONDITIONS NOT LISTED BELOW 2.5 - 3.5 FOR PROSTHETIC HEART VALVE REPLACEMENT 2.5 - 3.5 RECURRENT THROMBOSIS Performed By: #### P T #### [facility] [address] [place] [address] Dr. Sariah Boyle PT Coag (PPP) [Time] 19.0 s Critically high 9.0-11.6 [facility] Comment on above: Performed By: #### P T #### [facility] [address] [address] [address] Sariah Boyle PROTIMEon 01-02-2022 INR Coag (PPP) [Relative time] 2.05 {INR} Normal [facility] Comment on above: Performed By: #### P T #### [facility] [address] [place] [address] Dr. Sariah Boyle INR GUIDELINES SEE BELOW Normal [facility] Comment on above: Result Comment: NHUNG RED INR: 2.0 - 3.0 CONDITIONS NOT LISTED BELOW 2.5 - 3.5 FOR PROSTHETIC HEART VALVE REPLACEMENT 2.5 - 3.5 RECURRENT THROMBOSIS Performed By: #### P T #### [facility] [address] [address] [address] Sariah Boyle PT Coag (PPP) [Time] 21.1 s Critically high 9.0-11.6 [facility] Comment on above: Performed By: #### P T #### [facility] [address] [place] [address] Dr. Sariah Boyle Tobacco Screening.on 022 Adult depression screening assessment No [facility] Heart-Shahzad 250 DO Work Phone: Fall risk assessment a) No falls within the last year [facility] Diogenes 250 DO Work Phone: Tobacco use status [facility] b) No [facility] 250 DO Work Phone: PROTIMEon 12-02-2021 INR Coag (PPP) [Relative time] 2.22 {INR} Normal [facility] Comment on above: Performed By: #### P T #### [facility] [address] [place] [address] Dr. Sariah Boyle INR GUIDELINES SEE BELOW Normal [facility] Comment on above: Result Comment: NHUNG RED INR: 2.0 - 3.0 CONDITIONS NOT LISTED BELOW 2.5 - 3.5 FOR PROSTHETIC HEART VALVE REPLACEMENT 2.5 - 3.5 RECURRENT THROMBOSIS Performed By: #### P T #### [facility] [address] [place] [address] Dr. Sariah Boyle PT Coag (PPP) [Time] 22.8 s Critically high 9.0-11.6 [facility] Comment on above: Performed By: #### P T #### [facility] [address] [place] [address] Dr. Sariah Boyle PROTIMEon 11-18-2021 INR Coag (PPP) [Relative time] 1.95 {INR} Normal [facility] Comment on above: Performed By: #### P T #### [facility] [address] [place] [address] Dr. Sariah Boyle INR GUIDELINES SEE BELOW Normal [facility] Comment on above: Result Comment: NHUNG RED INR: 2.0 - 3.0 CONDITIONS NOT LISTED BELOW 2.5 - 3.5 FOR PROSTHETIC HEART VALVE REPLACEMENT 2.5 - 3.5 RECURRENT THROMBOSIS Performed By: #### P T #### [facility] [address] [place] [address] Dr. Sariah Boyle PT Coag (PPP) [Time] 20.2 s Critically high 9.0-11.6 [facility] Comment on above: Performed By: #### P T #### [facility] [address] [address] [address] [facility]-23-2021 Albumin [Mass/Vol] 4.1 g/dL Normal 3.6-5.1 [facility] Comment on above: Performed By: #### 1 0231, 7600 #### [facility] of [place] [address] Algorithm Developer: Jose Juan Arriola MD Albumin/Globulin [Mass ratio] 1.6 {ratio} Normal 1.0-2.5 [facility] Comment on above: Performed By: #### 1 0231, 7600 #### [facility] [place] [address] Algorithm Developer: Jose Juan Arriola MD ALP [Catalytic activity/Vol] 61 U/L Normal 35-144 [facility] Comment on above: Performed By: #### 1 0231, 7600 #### [facility] [place] [address] Algorithm Developer: Jose Juan Arriola MD ALT [Catalytic activity/Vol] 9 U/L Normal 9-46 [facility] Comment on above: Performed By: #### 1 0231, 7600 #### [facility] [place] [address] Algorithm Developer: Jose Juan Arriola MD AST [Catalytic activity/Vol] 14 U/L Normal 10-35 [facility] Comment on above: Performed By: #### 1 0231, 7600 #### [facility] [place] [address] Algorithm Developer: Jose Juan Arriola MD Bilirubin [Mass/Vol] 0.6 mg/dL Normal 0.2-1.2 [facility] Comment on above: Performed By: #### 1 0231, 7600 #### [facility] [place] [address] Algorithm Developer: Jose Juan Arriola MD Calcium [Mass/Vol] 9.1 mg/dL Normal 8.6-10.3 [facility] Comment on above: Performed By: #### 1 023, 7600 #### [facility] [place] [address] Algorithm Developer: Jose Juan Arriola MD Chloride [Moles/Vol] 109 mmol/L Normal 98-110 [facility] Comment on above: Performed By: #### 1 023, 7600 #### [facility] [place] [address] Algorithm Developer: Jose Juan Arriola MD CO2 [Moles/Vol] 26 mmol/L Normal 20-32 [facility] Comment on above: Performed By: #### 1 023, 7600 #### [facility] [place] [address] Algorithm Developer: Jose Juan Arriola MD Creatinine [Mass/Vol] 2.15 mg/dL High 0.70-1.[address] [facility] Comment on above: Result Comment: For patients >49 years of age, the reference limit for Creatinine is approximately 13% higher for people identified as -Afghan. Performed By: #### 1 023, 7600 #### [facility] [place] [address] Algorithm Developer: Jose Juan Arriola MD eGFR NON-AFR. SOUTH SUDANESE 27 mL/min/1.73m2 Low > OR = 60 [facility] Comment on above: Performed By: #### 1 023, 7600 #### [facility] [place] [address] Algorithm Developer: Jose Juan Arriola MD GFR/1.73 sq M.predicted among blacks MDRD (S/P/Bld) [Vol rate/Area] 31 mL/min/{1.73_m2} Low > OR = 60 [facility] Comment on above: Performed By: #### 1 023, 7600 #### [facility] [place] [address] Algorithm Developer: Jose Juan Arriola MD Globulin (S) [Mass/Vol] 2.5 g/dL Normal 1.9-3.7 [facility] Comment on above: Performed By: #### 1 0231, 7600 #### [facility] [place] [address] Algorithm Developer: Jose Juan Arriola MD Glucose [Mass/Vol] 93 mg/dL Normal 65-99 [facility] Comment on above: Result Comment: Fasting reference interval Performed By: #### 1 023, 7600 #### [facility] [place] [address] Algorithm Developer: Jose Juan Arriola MD Potassium [Moles/Vol] 4.7 mmol/L Normal 3.5-5.[address] [facility] Comment on above: Performed By: #### 1 023, 7600 #### [facility] [place] [address] Algorithm Developer: Jose Juan Arriola MD Protein [Mass/Vol] 6.6 g/dL Normal 6.1-8.1 [facility] Comment on above: Performed By: #### 1 023, 7600 #### [facility] [place] [address] Algorithm Developer: Jose Juan Arriola MD Sodium [Moles/Vol] 142 mmol/L Normal 135-146 [facility] Comment on above: Performed By: #### 1 023, 7600 #### [facility] [place] [address] Algorithm Developer: Jose Juan Arriola MD Urea nitrogen [Mass/Vol] 31 mg/dL High 7-25 [facility] Comment on above: Performed By: #### 1 0231, 7600 #### [facility] [place] [address] Algorithm Developer: Jose Juan Arriola MD Urea nitrogen/Creatinine [Mass ratio] 14 mg/mg Normal 6-22 [facility] Comment on above: Performed By: #### 1 0231, 7600 #### [facility] [address], [address] [place] [address] Algorithm Developer: Jose Juan Arriola MD LIPID PANEL, [facility] Cholesterol [Mass/Vol] 101 mg/dL Normal <200 [facility] Comment on above: Order Comment: FASTI NG:YES FASTING: YES Performed By: #### 1 0231, 7600 #### [facility] [address], [address] [place] [address] Algorithm Developer: Jose Juan Arriola MD Cholesterol in HDL [Mass/Vol] 40 mg/dL Normal > OR = 40 [facility] Comment on above: Order Comment: FASTI NG:YES FASTING: YES Performed By: #### 1 0231, 7600 #### [facility] [address], [address] [place] [address] Algorithm Developer: Jose Juan Arriola MD Cholesterol in LDL [Mass/Vol] 40 mg/dL Normal [facility] Comment on above: Order Comment: FASTI NG:YES FASTING: YES Result Comment: Refe rence range: <100 Desirable range <100 mg/dL for primary prevention; <70 mg/dL for patients with CHD or diabetic patients with > or = 2 CHD risk factors. LDL-C is now calculated using the Phillip-Tino calculation, which is a validated novel method providing better accuracy than the Friedewald equation in the estimation of LDL-C. Phillip FITZGERALD et al. MERYL. 2013;310(19): 5170-3310 (http://education.Otto Clave.FlyClip/faq/UYL899) Performed By: #### 1 0231, 7600 #### [facility] [address], [address] [place] [address] Algorithm Developer: Jose Juan Arriola MD Cholesterol.total/Chol esterol in HDL [Mass ratio] 2.5 {ratio} Normal <5.0 [facility] Comment on above: Order Comment: FASTI NG:YES FASTING: YES Performed By: #### 1 0231, 7600 #### [facility] [address], [address] [place] [address] Algorithm Developer: Jose Juan Arriola MD NON HDL CHOLESTEROL 61 mg/dL (calc) Normal <130 [facility] Comment on above: Order Comment: FASTI NG:YES FASTING: YES Result Comment: For patients with diabetes plus 1 major ASCVD risk factor, treating to a non-HDL-C goal of <100 mg/dL (LDL-C of <70 mg/dL) is considered a therapeutic option. Performed By: #### 1 0231, 7600 #### [facility] [address], [address] [place] [address] Algorithm Developer: Jose Juan Arriola MD Triglyceride [Mass/Vol] 127 mg/dL Normal <150 [facility] Comment on above: Order Comment: FASTI NG:YES FASTING: YES Performed By: #### 1 0231, 7600 #### [facility] [address], [address] [place] [address] Algorithm Developer: Jose Juan Arriola MD Tobacco Screening.on 021 Fall risk assessment a) No falls within the last year [facility] 250 DO Work Phone: Tobacco use status CP b) No -[facility] 250 DO Work Phone: B TYPE NATRIURETIC PEPTIDE ( BNP)on 11-03-2020 B TYPE NATRIURETIC PEPTIDE (BNP) Normal [facility] Comment on above: Result Comment: FROZ EN EDTA PLASMA IS REQUIRED TEST NOT PERFORMED No suitable specimen received. Please review the test requirements at [email or web address] Performed By: #### 9 05, 83493, 48159, 6399, 718, 899, 622, 65594, 07033 #### [facility] [address], [address] [place] [id number] Algorithm Developer: Jose Juan Arriola MD CBC (INCLUDES DIFF/PLT)on Basophils (Bld) [#/Vol] 0.071 10*3/uL Normal 0-200 [facility] Comment on above: Performed By: #### 9 05, 34576, 80845, 6399, 718, 899, 622, 38263, 01895 #### [facility] [place] [address] Algorithm Developer: Jose Juan Arriola MD Basophils/100 WBC (Bld) 1.0 % Normal [facility] Comment on above: Performed By: #### 9 05, 79964, 24088, 6399, 718, 899, 622, 35938, 42161 #### [facility] [place] [address] Algorithm Developer: Jose Juan Arriola MD Eosinophils (Bld) [#/Vol] 0.099 10*3/uL Normal 15-500 [facility] Comment on above: Performed By: #### 9 05, 90820, 14376, 6399, 718, 899, 622, 43577, 71697 #### [facility] [place] [address] Algorithm Developer: Jose Juan Arriola MD Eosinophils/100 WBC (Bld) 1.4 % Normal [facility] Comment on above: Performed By: #### 9 05, 22016, 07445, 6399, 718, 899, 622, 71852, 88465 #### [facility] [place] [address] Algorithm Developer: Jose Juan Arriola MD Erythrocyte distribution width (RBC) [Ratio] 14.4 % Normal 11.0-15.0 [facility] Comment on above: Performed By: #### 9 05, 01462, 28113, 6399, 718, 899, 622, 40323, 61556 #### [facility] [place] [address] Algorithm Developer: Jose Juan Arriola MD Hematocrit (Bld) [Volume fraction] 42.7 % Normal 38.5-50.0 [facility] Comment on above: Performed By: #### 9 05, 10185, 15089, 6399, 718, 899, 622, 78489, 06333 #### [facility] [place] [address] Algorithm Developer: Jose Juan Arriola MD Hemoglobin (Bld) [Mass/Vol] 13.7 g/dL Normal 13.2-17.1 [facility] Comment on above: Performed By: #### 9 05, 38527, 04036, 6399, 718, 899, 622, 51977, 54229 #### [facility] of [address], [address] [place] [address] Algorithm Developer: Jose Juan Arriola MD Lymphocytes (Bld) [#/Vol] 1.512 10*3/uL Normal 850-3900 [facility] Comment on above: Performed By: #### 9 05, 47915, 79066, 6399, 718, 899, 622, 93587, 24891 #### [facility] [place] [address] Algorithm Developer: Jose Juan Arriola MD Lymphocytes/100 WBC (Bld) 21.3 % Normal [facility] Comment on above: Performed By: #### 9 05, 04417, 44348, 6399, 718, 899, 622, 31804, 01477 #### [facility] [place] [address] Algorithm Developer: Jose Juan Arriola MD MCH (RBC) [Entitic mass] 28.5 pg Normal 27.0-33.0 [facility] Comment on above: Performed By: #### 9 05, 81422, 62652, 6399, 718, 899, 622, 25818, 33385 #### [facility] of [address], [address] [place] [address] Algorithm Developer: Jose Juan Arriola MD MCHC (RBC) [Mass/Vol] 32.1 g/dL Normal 32.0-36.[address] [facility] Comment on above: Performed By: #### 9 05, 81713, 51138, 6399, 718, 899, 622, 14238, 24091 #### [facility] of [address], [address] [place] [address] Algorithm Developer: Jose Juan Arriola MD MCV (RBC) [Entitic vol] 89.0 fL Normal 80.0-100.0 [facility] Comment on above: Performed By: #### 9 05, 11403, 78189, 6399, 718, 899, 622, 24831, 43570 #### [facility] [place] [address] Algorithm Developer: Jose Juan Arriola MD Monocytes (Bld) [#/Vol] 0.738 10*3/uL Normal 200-950 [facility] Comment on above: Performed By: #### 9 05, 09162, 64016, 6399, 718, 899, 622, 02306, 19292 #### [facility] [place] [address] Algorithm Developer: Jose Juan Arriola MD Monocytes/100 WBC (Bld) 10.4 % Normal [facility] Comment on above: Performed By: #### 9 05, 08780, 11517, 6399, 718, 899, 622, 69808, 17175 #### [facility] [place] [address] Algorithm Developer: Jose Juan Arriola MD Neutrophils (Bld) [#/Vol] 4.679 10*3/uL Normal 6845-4519 [facility] Comment on above: Performed By: #### 9 05, 27101, 34210, 6399, 718, 899, 622, 83413, 10130 #### [facility] [place] [address] Algorithm Developer: Jose Juan Arriola MD Neutrophils/100 WBC (Bld) 65.9 % Normal [facility] Comment on above: Performed By: #### 9 05, 63599, 40455, 6399, 718, 899, 622, 78496, 63553 #### [facility] [place] [address] Algorithm Developer: Jose Juan Arriola MD Platelet mean volume (Bld) [Entitic vol] 11.4 fL Normal 7.5-12.5 [facility] Comment on above: Performed By: #### 9 05, 33945, 68426, 6399, 718, 899, 622, 30364, 30527 #### [facility] [place] [address] Algorithm Developer: Jose Juan Arriola MD Platelets (Bld) [#/Vol] 229 10*3/uL Normal 140-400 [facility] Comment on above: Performed By: #### 9 05, 89576, 69972, 6399, 718, 899, 622, 70863, 15616 #### [facility] [place] [address] Algorithm Developer: Jose Juan Arriola MD RBC (Bld) [#/Vol] 4.80 10*6/uL Normal 4.20-5.80 [facility] Comment on above: Performed By: #### 9 05, 04594, 27500, 6399, 718, 899, 622, 06232, 50626 #### [facility] [place] [address] Algorithm Developer: Jose Juan Arriola MD WBC (Bld) [#/Vol] 7.1 10*3/uL Normal 3.8-10.8 [facility] Comment on above: Performed By: #### 9 05, 54869, 27343, 6399, 718, 899, 622, 94268, 87626 #### [facility] [place] [address] Algorithm Developer: Jose Juan Arriola MD [facility] 11-03-2020 Albumin [Mass/Vol] 4.1 g/dL Normal 3.6-5.1 [facility] Comment on above: Performed By: #### 9 05, 14780, 25142, 6399, 718, 899, 622, 24732, 71533 #### [facility] of [address] [place] [address] Algorithm Developer: Jose Juan Arriola MD Albumin/Globulin [Mass ratio] 1.7 {ratio} Normal 1.0-2.5 [facility] Comment on above: Performed By: #### 9 05, 34369, 70648, 6399, 718, 899, 622, 16906, 18375 #### [facility] [place] [address] Algorithm Developer: Jose Juan Arriola MD ALP [Catalytic activity/Vol] 62 U/L Normal 35-144 [facility] Comment on above: Performed By: #### 9 05, 62910, 54315, 6399, 718, 899, 622, 86065, 75484 #### [facility] [place] [address] Algorithm Developer: Jose Juan Arriola MD ALT [Catalytic activity/Vol] 9 U/L Normal 9-46 [facility] Comment on above: Performed By: #### 9 05, 88093, 36450, 6399, 718, 899, 622, 51045, 95988 #### [facility] [place] [address] Algorithm Developer: Jose Juan Arriola MD AST [Catalytic activity/Vol] 13 U/L Normal 10-35 [facility] Comment on above: Performed By: #### 9 05, 28393, 72656, 6399, 718, 899, 622, 18852, 30461 #### [facility] [place] [address] Algorithm Developer: Jose Juan Arriola MD Bilirubin [Mass/Vol] 0.7 mg/dL Normal 0.2-1.2 [facility] Comment on above: Performed By: #### 9 05, 55661, 35991, 6399, 718, 899, 622, 79872, 95686 #### [facility] [place] [address] Algorithm Developer: Jose Juan Arriola MD Calcium [Mass/Vol] 9.5 mg/dL Normal 8.6-10.3 [facility] Comment on above: Performed By: #### 9 05, 69411, 79948, 6399, 718, 899, 622, 53660, 21329 #### [facility] [place] [address] Algorithm Developer: Jose Juan Arriola MD Chloride [Moles/Vol] 109 mmol/L Normal 98-110 [facility] Comment on above: Performed By: #### 9 05, 54605, 93139, 6399, 718, 899, 622, 21718, 85774 #### [facility] [address], [address] [place] [address] Algorithm Developer: Jose Juan Arriola MD CO2 [Moles/Vol] 25 mmol/L Normal 20-32 [facility] Comment on above: Performed By: #### 9 05, 14464, 86083, 6399, 718, 899, 622, 34275, 18242 #### [facility] [place] [address] Algorithm Developer: Jose Juan Arriola MD Creatinine [Mass/Vol] 1.99 mg/dL High 0.70-1.[address] [facility] Comment on above: Result Comment: For patients >49 years of age, the reference limit for Creatinine is approximately 13% higher for people identified as -Afghan. Performed By: #### 9 05, 03081, 90778, 6399, 718, 899, 622, 78981, 37557 #### [facility] [place] [address] Algorithm Developer: Jose Juan Arriola MD eGFR NON-AFR. SOUTH SUD[place] 30 mL/min/1.73m2 Low > OR = 60 [facility] Comment on above: Performed By: #### 9 05, 70788, 68045, 6399, 718, 899, 622, 06132, 33221 #### [facility] [address], [address] [place] [address] Algorithm Developer: Jose Juan Arriola MD GFR/1.73 sq M.predicted among blacks MDRD (S/P/Bld) [Vol rate/Area] 34 mL/min/{1.73_m2} Low > OR = 60 [facility] Comment on above: Performed By: #### 9 05, 35747, 32351, 6399, 718, 899, 622, 74338, 87647 #### [facility] [place] [address] Algorithm Developer: Jose Juan Arriola MD Globulin (S) [Mass/Vol] 2.4 g/dL Normal 1.9-3.7 [facility] Comment on above: Performed By: #### 9 05, 47839, 33925, 6399, 718, 899, 622, 14799, 19924 #### [facility] [place] [address] Algorithm Developer: Jose Juan Arriola MD Glucose [Mass/Vol] 144 mg/dL High 65-99 [facility] Comment on above: Result Comment: Fasting reference interval For someone without known diabetes, a glucose value >125 mg/dL indicates that they may have diabetes and this should be confirmed with a follow-up test. Performed By: #### 9 05, 49959, 59464, 6399, 718, 899, 622, 50735, 04771 #### [facility] [place] [address] Algorithm Developer: Jose Juan Arriola MD Potassium [Moles/Vol] 4.9 mmol/L Normal 3.5-5.[address] [facility] Comment on above: Performed By: #### 9 05, 30406, 54842, 6399, 718, 899, 622, 53556, 95575 #### [facility] [place] [address] Algorithm Developer: Jose Juan Arriola MD Protein [Mass/Vol] 6.5 g/dL Normal 6.1-8.1 [facility] Comment on above: Performed By: #### 9 05, 34056, 14210, 6399, 718, 899, 622, 03688, 60990 #### [facility] [place] [address] Algorithm Developer: Jose Juan Arriola MD Sodium [Moles/Vol] 141 mmol/L Normal 135-146 [facility] Comment on above: Performed By: #### 9 05, 05387, 37815, 6399, 718, 899, 622, 70341, 09189 #### [facility] [place] [address] Algorithm Developer: Jose Juan Arriola MD Urea nitrogen [Mass/Vol] 31 mg/dL High 7-25 [facility] Comment on above: Performed By: #### 9 05, 25571, 18767, 6399, 718, 899, 622, 58156, 78836 #### [facility] [place] [address] Algorithm Developer: Jose Juan Arriola MD Urea nitrogen/Creatinine [Mass ratio] 16 mg/mg Normal 6-22 [facility] Comment on above: Performed By: #### 9 05, 67655, 72285, 6399, 718, 899, 622, 35981, 15182 #### [facility] [place] [address] Algorithm Developer: Jose Juan Arriola MD MAGNESIUMon 11-03-2020 Magnesium [Mass/Vol] 2.1 mg/dL Normal 1.5-2.5 [facility] Comment on above: Performed By: #### 9 05, 85975, 80398, 6399, 718, 899, 622, 41936, 38750 #### [facility] [place] [address] Algorithm Developer: Jose Juan Arriola MD PHOSPHATE ( PHOSPHORUS)on 11-03-2020 Phosphate [Mass/Vol] 2.9 mg/dL Normal 2.1-4.3 [facility] Comment on above: Performed By: #### 9 05, 95827, 97714, 6399, 718, 899, 622, 64877, 01827 #### [facility] [place] [address] Algorithm Developer: Jose Juan Arriola MD PTH, INTACT WITHOUT [...] Normal High Performed By: #### 9 05, 80575, 14019, 6399, 718, 899, 622, 18171, 38007 #### [facility] [address], [address] [place], [place] [id number] Algorithm Developer: Jose Juan Arriola MD TSHon 11-03-2020 TSH Qn 2.08 m[IU]/L Normal 0.40-4.50 [facility] Comment on above: Performed By: #### 9 05, 67625, 61799, 6399, 718, 899, 622, 14106, 35026 #### [facility] [address], [address] [place], [place] [address] Algorithm Developer: Jose Juan Arriola MD URIC ACIDon 11-03-2020 Urate [Mass/Vol] 8.5 mg/dL High 4.0-8.0 [facility] Comment on above: Result Comment: Ther apeutic target for gout patients: <6.0 mg/dL Performed By: #### 9 05, 47499, 28484, 6399, 718, 899, 622, 26751, 44667 #### [facility] [address], [address] [place], [place] [address] Algorithm Developer: Jose Juan Arriola MD VITAMIN D,25-OH,TOTAL,IAon 0 [...] D, (D2,D3), LC/MS/MS is recommended: order code [id number] (patients >2yrs). See Note 1 Note 1 For additional information, please refer to http://education.Kuldat/faq/PXI561 (This link is being provided for informational/ educational purposes only.) Performed By: #### 1 0231, 7600 #### [facility] [address] [facility], [address] [place] [address] Algorithm Developer: Jose Juan Arriola MD [facility] CARDIAC STRESS/REST INJE CTIONon 08-07-2019 [facility] CARDIAC STRESS/REST INJECTION Patient Name: RIO JACOME STUDY: MYOCARDIAL PERFUSION STRESS TEST WITH LEXISCAN Performing facility: [facility], [address] [place] [address], [address] [id number] [facility] Provider: Melanie Langston MD, FACC PCP: Dr. Alden Morin Supervising provider: Edwige Jacobsen MD, FACC INDICATION: Arteriosclerotic cardiovascular disease Pre-operative risk assessment for Gallbladder scheduled at [facility] TBA. HISTORY: Gender: M; Age: 83 y/o ; Height: 175.26 cm; Weight: 74.3405978 kg. High Cholesterol; CAD; HTN; ICD V. Tach., ICD Denies smoking. COMPARISON: Previous nuclear testing completed at [facility]. ACCESSION NUMBER(S): [id number]; [id number]; [id number] ORDERING CLINICIAN: RENETTA LANGSTON TECHNIQUE: ONE DAY [...] Electronically signed by: EDWIGE JACOBSEN MD Normal [facility] Reminderson 03-14-2019 Reminders - From: Qing Villegas MA To: EU - Clinical; Sent: 03/04/2019 11:29:06 EDT Show up: 03/14/2019 11:29:00 EDT Subject: Ambulatory Reminder Due Date/Time: 03/18/2019 11:29:00 EDT Reminder/Recall FISH/Cytology done 03/04/19 Negative. Normal [facility] Vital Signs Date Time Vital Sign Value Performing Clinician Facility 05-29-2023 16:13-0500 Body height 177.8 cm Phil Morin DO Work Phone: [employer] 05-29-2023 16:13-0500 Body mass index (BMI) [Ratio] 24.12 kg/m2 Phil Reynagalong DO [facility] 05-29-2023 16:13-0500 Body temperature 97.81 [degF] Phil Reynagalong DO Work Phone: [facility] [employer] 05-29-2023 16:13-0500 Body weight 76.25 kg Phil Reynagalong DO Work Phone: [facility] [employer] 05-29-2023 16:13-0500 Diastolic blood pressure 68 mm[Hg] Phil Reynagalong DO [facility] 05-29-2023 16:13-0500 Heart rate 104 /min Phil Reynagalong DO Work Phone: [facility] [employer] 05-29-2023 16:13-0500 SaO2% (BldA) [Mass fraction] 99 % Phil Reynagalong DO Work Phone: [facility] [employer] 05-29-2023 16:13-0500 Systolic blood pressure 128 mm[Hg] Phil Nicoleng DO Work Phone: [facility] [employer] 01-12-2023 14:17-0400 Body height 175.26 cm Phil Nicoleng Work Phone: [facility] [employer] [facility] DO Work Phone: 01-12-2023 14:17-0400 Body mass index (BMI) [Ratio] 23.78 kg/m2 Phil Reynagalong Work Phone: [facility] DO Work Phone: 01-12-2023 14:17-0400 Body surface area Derived from formula 1.88 m2 Phil Reynagalong Work Phone: [facility] [employer] DO Work Phone: 01-12-2023 14:17-0400 Body weight 73.03 kg Philgirish Reynagalong Work Phone: [facility] DO Work Phone: 01-12-2023 14:17-0400 Diastolic blood pressure 78 mm[Hg] Phil G Furlong Work Phone: [facility] [employer] DO Work Phone: 01-12-2023 14:17-0400 Heart rate 72 /min Phil G Furlong Work Phone: [facility] DO Work Phone: 01-12-2023 14:17-0400 Systolic blood pressure 122 mm[Hg] Phil G Furlong Work Phone: [facility] [employer] 250 DO Work Phone: 07-14-2022 15:41-0500 Body height 175.26 cm Phil G Furlong Work Phone: [facility] DO Work Phone: 07-14-2022 15:41-0500 Body mass index (BMI) [Ratio] 23.92 kg/m2 Phil G Furlong Work Phone: [facility] [employer] 250 DO Work Phone: 07-14-2022 15:41-0500 Body surface area Derived from formula 1.89 m2 Phil G Furlong Work Phone: [facility] DO Work Phone: 07-14-2022 15:41-0500 Body weight 73.48 kg Phil G Furlong Work Phone: [facility] DO Work Phone: 07-14-2022 15:41-0500 Diastolic blood pressure 80 mm[Hg] Phil G Furlong Work Phone: [facility] 250 DO Work Phone: 07-14-2022 15:41-0500 Heart rate 80 /min Phil Nicoleng Work Phone: [facility] 250 DO Work Phone: 07-14-2022 15:41-0500 Systolic blood pressure 130 mm[Hg] Phil Nicoleng Work Phone: [facility] DO Work Phone: 06-15-2022 12:40-0500 Diastolic blood pressure 78 mm[Hg] Florentino Hernadez Dept[facility] of Dermatology 06-15-2022 12:40-0500 Systolic blood pressure 167 mm[Hg] Florentino Hernadez [facility] 06-06-2022 08:07-0500 Diastolic blood pressure 85 mm[Hg] Florentino Hernadez [facility] 06-06-2022 08:07-0500 Systolic blood pressure 150 mm[Hg] Florentino Hernadez [facility] 04-03-2022 14:27-0500 Body height 175.26 cm Phil Nicoleng Work Phone: [facility] Work Phone: 04-03-2022 14:27-0500 Body mass index (BMI) [Ratio] 23.92 kg/m2 Phil Reynagalong Work Phone: [facility]Lwvqolyrgoxpeq-Jp [facility] Work Phone: 04-03-2022 14:27-0500 Body surface area Derived from formula 1.89 m2 Phil Reynagalong Work Phone: XK-Iskhaqgyllecwn-Jt [facility] Work Phone: 04-03-2022 14:27-0500 Body weight 73.48 kg Phil G Furlong Work Phone: CO-Fqjvwsjcuniegr-Yl [facility] Work Phone: 03-23-2022 09:29-0400 Diastolic blood pressure 89 mm[Hg] Karlie Craig Dept. of Dermatology 03-23-2022 09:29-0400 Systolic blood pressure 160 mm[Hg] Karlie Craig [facility] D[facility]atology 03-23-2022 08:29-0400 Diastolic blood pressure 89 mm[Hg] Florentino Hernadez Dept[facility] D[facility]atology 03-23-2022 08:29-0400 Systolic blood pressure 160 mm[Hg] Florentino Hernadez Dept[facility] D[facility]atology 12-13-2021 08:48-0400 Body height 175.26 cm Phil Reynagalong Work Phone: [facility] DO Work Phone: 12-13-2021 08:48-0400 Body mass index (BMI) [Ratio] 23.63 kg/m2 Phil Reynagalong Work Phone: [facility] DO Work Phone: 12-13-2021 08:48-0400 Body surface area Derived from formula 1.88 m2 Phil Reynagalong Work Phone: [facility] DO Work Phone: 12-13-2021 08:48-0400 Body weight 72.58 kg Phil Reynagalong Work Phone: [facility] DO Work Phone: 12-13-2021 08:48-0400 Diastolic blood pressure 80 mm[Hg] Phil Reynagalong Work Phone: [facility] DO Work Phone: 12-13-2021 08:48-0400 Heart rate 80 /min Phil G Furlong Work Phone: [facility] 250 DO Work Phone: 12-13-2021 08:48-0400 Systolic blood pressure 128 mm[Hg] Phil G Furlong Work Phone: [facility] DO Work Phone: 05-02-2021 08:27-0500 Body height 175.26 cm Phil G Furlong Work Phone: [facility] 250 DO Work Phone: 05-02-2021 08:27-0500 Body mass index (BMI) [Ratio] 24.37 kg/m2 Phil G Furlong Work Phone: [facility] [employer] DO Work Phone: 05-02-2021 08:27-0500 Body surface area Derived from formula 1.9 m2 Phil G Furlong Work Phone: [facility] DO Work Phone: 05-02-2021 08:27-0500 Body weight 74.84 kg Phil G Furlong Work Phone: [facility] DO Work Phone: 05-02-2021 08:27-0500 Diastolic blood pressure 76 mm[Hg] Phil G Furlong Work Phone: [facility] 250 DO Work Phone: 05-02-2021 08:27-0500 Heart rate 81 /min Phil G Furlong Work Phone: [facility] DO Work Phone: 05-02-2021 08:27-0500 Systolic blood pressure 137 mm[Hg] Phil Morin Work Phone: [facility] 250 DO Work Phone: 1935 23:00-0500 >na< Karlie Craig Dept. of Dermato logy Encounters Encounter Date Encounter Type Care Provider Facility Start: 05-29-2023 End: 05-29-2023 ambulatory PHIL MORIN [facility] Start: 05-29-2023 End: 05-29-2023 Office outpatient visit 25 minutes Phil Morin DO Work Phone: [facility] Internal [facility] - Family Medicine Comment on above: Paroxysmal atrial fi brillation ([facility]) (Primary Dx); Hypertensive 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 ([facility]); Essential hypertension; Hypothyroidism, unspecified type; Type 2 diabetes mellitus without complication, without long-term current use of insulin ([facility]); Arteriosclerotic vascular disease Start: 03-20-2023 End: 03-20-2023 ambulatory Phil Morin Facility:[facility] Start: 03-20-2023 End: 03-20-2023 ambulatory DO Phil Morin Work Phone: [facility] Work Phone: Start: 03-20-2023 End: 03-20-2023 Patient encounter procedure DO Phil Morin Work Phone: [facility] Start: 01-12-2023 Office outpatient vi sit 25 minutes Phil Nicoleng Work Phone: [facility] DO Work Phone: Start: 01-12-2023 Patient encounter procedure Phil Nicoleng Work Phone: [facility] DO Work Phone: Start: 01-12-[address] Renetta bustamante [facility] Facility: Start: 12-04-2022 End: 12-04-[address] Phil Morin Facility:[id number] Start: 10-17-2022 End: 10-18-[address] JARON DAVALOS Facility:H1 Start: 09-15-2022 End: 09-16-[address] JARON DAVALOS Facility:H1 Start: 08-28-2022 End: 08-28-[address] Phil Morin Facility:[id number] Start: 08-28-2022 End: 08-28-2022 ambulatory DO Phil Ronnellbret Work Phone: [facility] Work Phone: Start: 08-28-2022 End: 08-28-2022 Patient encounter procedure DO Phil Morin Work Phone: [facility] Start: 08-15-2022 End: 08-16-[address] JARON DAVALOS Facility:H1 Start: 07-18-2022 End: 07-19-[address] JARON DAVALOS Facility:H1 Start: 07-14-2022 Office outpatient vi sit 25 minutes Phil Morin Work Phone: [employer] DO Work Phone: Start: 07-14-[address] Phil Morin Facility:[id number] Start: 07-04-2022 End: 07-05-[address] JARON DAVALOS Facility:H1 Start: 07-03-2022 Karlie Craig Dept. of D ermatology Start: 06-16-2022 Gadiel Estevez Dept. of Dermatology Start: 06-16-2022 Telephone encounter Phil duron Work Phone: [facility] DO Work Phone: Start: 06-15-2022 Florentino Hernadez Dept. of Dermatology Start: 06-15-[address] Phil Morin Facility:[id number] Start: 06-15-[address] Phil Morin Facility:[id number] Start: 06-09-2022 Rx Renewal Phil Nicole ng Work Phone: [facility] 250 DO Work Phone: Start: 06-07-2022 End: 06-08-[address] PHIL MORIN Facility:H1 Start: 06-07-2022 Florentino Hernadez Dept. of Dermatology Start: 06-06-2022 ambulatory Florentino Hernadez Facility: [id number] Start: 06-06-2022 ambulatory Florentino Hernadez Facility: [id number] Start: 05-17-[address] Phil Morin Facility:[id number] Start: 05-17-2022 End: 05-17-2022 ambulatory Phil Morin Facility:[facility] Start: 05-17-2022 End: 05-17-2022 ambulatory DO Philgirish Nicoleng Work Phone: [facility] Work Phone: Start: 05-17-2022 End: 05-17-2022 Patient encounter procedure DO Phil Morin Work Phone: [facility] Start: 05-08-2022 End: 05-09-[address] PHIL MORIN Facility:H1 Start: 05-01-2022 Rx Renewal Phil Nicole ng Work Phone: [facility] DO Work Phone: Start: 04-07-2022 End: 04-08-[address] PHIL MORIN Facility:H1 Start: 04-04-2022 Karlie Craig Dept. of D ermatology Start: 04-03-2022 Office outpatient ne w 45 minutes Phil Morin Work Phone: [facility]Axrjt [facility] Work Phone: Start: 04-03-2022 Patient encounter procedure Phil Morin Work Phone: [facility] Work Phone: Start: 04-03-[address] Ketan yIer Facility:[id number] Start: 03-23-2022 Florentino Hernadez Dept. of Dermatology Start: 03-23-2022 ambulatory Florentino Hernadez Facility: [id number] Start: 03-23-2022 ambulatory Florentino Hernadez Facility: [id number] Start: 03-06-2022 End: 03-07-[address] PHIL MORIN Facility:H1 Start: 02-28-2022 Karlie Craig Dept. of D ermatology Start: 02-16-2022 ambulatory Florentino Hernadez Facility: [id number] Start: 02-15-[address] Phil Morin Facility:[id number] Start: 02-15-2022 End: 02-15-2022 ambulatory DO Phil Morin Work Phone: [facility] Work Phone: Start: 02-15-2022 End: 02-15-2022 Patient encounter procedure DO Phil Morin Work Phone: [facility] Start: 02-03-2022 End: 02-04-[address] PHIL MORIN Facility:H1 Start: 01-02-2022 End: 01-03-[address] PHIL MORIN Facility:H1 Start: 12-13-2021 Office outpatient vi sit 25 minutes Phil Morin Work Phone: [facility] 250 DO Work Phone: Start: 12-02-2021 End: 12-16-[address] PHIL MORIN Facility:H1 Start: 11-18-2021 End: 11-19-[address] PHIL MORIN Facility:H1 Start: 05-02-2021 Office outpatient vi sit 25 minutes Phil Soliz Patience Work Phone: [facility] 250 DO Work Phone: Procedures Date Procedure Procedure Detail Performing Clinician Start: 05-29-2023 Adult depression scr eening assessment Phil Ronnellbret DO Work Phone: Start: 06-15-2022 Excision malignant l esion s/n/h/f/g 2.1-3.0 cm Florentino Hernadez Start: 06-06-2022 Excision malignant: Scalp/Neck/Hands/Feet/Genit adam - 4.0cm [id number] Florentino Hernadez Start: 06-06-2022 Excision malignant: Scalp/Neck/Hands/Feet/Genit adam - 4.0cm [id number] Florentino Hernadez Start: 03-23-2022 End: 03-23-2022 Exc b9 lesion mrgn xcp sk tg t/a/l 3.1-4.0 cm Florentino Hernadez Start: 02-28-2022 Karlie amaya Brain Surgery Phil Soliz Corey pool Work Phone: Cataract surgery Phil Soliz Kyaw rlcheyenne Work Phone: History Of Prior Surgery Brayan stout Martínez Patience Work Phone: Total colonoscopy Phil Soliz Mckayla duron Work Phone: Transurethral resect ion of bladder neoplasm Phil Soliz Patience Work Phone: Plan of Treatment Date Care Activity Detail Author Start: 08-11-2027 DTaP,Tdap and Td Vaccines (2 - Td or Tdap) DTaP,Tdap and Td Vaccines (2 - Td or Tdap) [facility] Start: 05-29-2024 Adult BMI Screening Adult BMI Screen ing [facility] Start: 05-29-2024 Depression Screening Depression Scre ening [facility] Lifestyle [facility] Start: 05-29-2024 Fall Risk Screening Fall Risk Screen ing [facility] Start: 05-29-2024 Tobacco Screening Tobacco Screening [facility] Start: 10-16-2023 FUV, Provider: Renetta Langston, Status: Pen, Time: 9:00 AM FUV, Provider: Renetta Langston, Status: Pen, Time: 9:00 AM [facility] 250 DO Work Phone: Start: 07-30-2023 End: 07-30-2023 Patient encounter procedure 07/30/2023 10:20 AM EDT Office Visit [facility] Internal Medicine - Family Medicine [address] [place] [address] Phil Morin, DO [address] [place], [facility] [address] [facility] Internal Medicine - Family Medicine Start: 01-19-2023 COVID-19 Vaccine ( season) COVID-19 Vaccine () [facility] Start: 01-12-2023 FUV, Provider: Renetta Langston, Status: Pen, Time: 2:10 PM FUV, Provider: Renetta Langston, Status: Pen, Time: 2:10 PM [facility] 250 DO Work Phone: Start: 07-14-2022 FUV, Provider: Renetta Langston, Status: Pen, Time: 3:10 PM FUV, Provider: Renetta Langston, Status: Pen, Time: 3:10 PM [facility] [place] Work Phone: Start: 06-27-2022 FUV, Provider: Edwige Jacobsen, Status: Pen, Time: 9:10 AM FUV, Provider: Edwige Jacobsen, Status: Pen, Time: 9:10 AM [facility] Work Phone: Start: 12-13-2021 FUV, Provider: Renetta Langston, Status: Pen, Time: 8:50 AM FUV, Provider: Renetta Langston, Status: Pen, Time: 8:50 AM [facility] 250 DO Work Phone: Start: 09-25-2015 Administration of varicella zoster vaccine Zoster (Shingles) Vaccine (1 of 2) [employer] Start: 1935 Medicare Annual Well ness Visit Medicare Annual Wellness Visit [employer] End: 05-29-2024 Comprehensive metabolic 2000 panel - Serum or Plasma Comprehensive metabolic panel Lab Routine Hypertensive 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 ([facility]) 1 Occurrences starting 05/29/2023 until 05/29/2024 [employer] Comment on above: 1 Occurrences starti ng 05/29/2023 until 05/29/2024 End: 05-29-2024 Hemoglobin A1c/Hemoglobin.total in Blood Hemoglobin A1c Lab Routine Type 2 diabetes mellitus without complication, without long-term current use of insulin ([facility]) 1 Occurrences starting 05/29/2023 until 05/29/2024 [employer] Comment on above: 1 Occurrences starti ng 05/29/2023 until 05/29/2024 End: 05-29-2024 Lipid panel Lipid panel Lab Routine Arteriosclerotic vascular disease 1 Occurrences starting 05/29/2023 until 05/29/2024 [employer] Comment on above: 1 Occurrences starti ng 05/29/2023 until 05/29/2024 End: 05-29-2024 Protime & INR Protime & INR Lab Routine Paroxysmal atrial fibrillation ([facility]) 1 Occurrences starting 05/29/2023 until 05/29/2024 [employer] Work Phone: Comment on above: 1 Occurrences starti ng 05/29/2023 until 05/29/2024 End: 05-29-2024 Thyrotropin [Units/volume] in Serum or Plasma TSH Lab Routine Hypothyroidism, unspecified type 1 Occurrences starting 05/29/2023 until 05/29/2024 [employer] Comment on above: 1 Occurrences starti ng 05/29/2023 until 05/29/2024 Immunizations Immunization Date Immunization Notes Care Provider Raquel huntley 03-30-2023 Influenza, High-dose , Quadrivalent Phil Morin DO Work Phone: [facility] 02-16-2022 Fluzone High-Dose Quadrivalent 0.7 ML Intramuscular Suspension Prefilled Syringe Phil Morin Work Phone: [facility] 250 DO Work Phone: 01-28-2021 Fluad Quadrivalent 0 .5 ML Intramuscular Prefilled Syringe Phil Nicoleng Work Phone: [facility] 250 DO Work Phone: 07-14-2020 [employer] COVI D-19 Vacc 30 MCG/0.3ML Intramuscular Suspension Phil Nicoleng Work Phone: [place] [address] DO Work Phone: 07-01-2020 Pfizer-Bio[employer] COVI D-19 Vacc 30 MCG/0.3ML Intramuscular Suspension Phil Nicoleng Work Phone: [facility] 06-16-2020 COVID-19, mRNA, LNP- S, PF, 30mcg/0.3mL Dose Phil Morin DO Work Phone: [facility] 06-11-2020 Pf[employer] COVI D-19 Vacc 30 MCG/0.3ML Intramuscular Suspension Phil Nicoleng Work Phone: [facility] 250 DO Work Phone: 04-05-2020 pneumococcal polysaccharide vaccine, 23 valent Phil Nicoleng Work Phone: [facility] 250 DO Work Phone: 02-23-2020 Fluad Quadrivalent 0 .5 ML Intramuscular Prefilled Syringe Phil Morin Work Phone: [place] [address] DO Work Phone: 02-19-2020 influenza, seasonal, injectable Phil Nicoleng Work Phone: [facility] 250 DO Work Phone: 07-20-2019 pneumococcal conjuga te vaccine, 13 valent Phil Soliz Furlong Work Phone: [place] [address] DO Work Phone: 03-12-2019 pneumococcal conjuga te vaccine, 13 valent Phil G Furlong Work Phone: [place] [address] DO Work Phone: 03-12-2019 Seasonal trivalent influenza vaccine, adjuvanted, preservative free Phil Reynagang Work Phone: [place] [address] DO Work Phone: 02-18-2019 influenza virus vacc ine, unspecified formulation [facility] Work [facility]: [place] [address] DO Work Phone: 03-04-2018 influenza virus vacc ine, unspecified formulation Phil Reynagang Work Phone: [place] [address] DO Work Phone: 08-10-2017 tetanus toxoid, redu edwin diphtheria toxoid, and acellular pertussis vaccine, adsorbed [facility] Work [facility]: [place] [address] DO Work Phone: 03-21-2017 influenza virus vacc ine, unspecified formulation Phil Reynagalong Work Phone: [place] [address] DO Work Phone: 03-13-2017 influenza, seasonal, injectable Phil G Ronnelllong Work Phone: [place] [address] DO Work Phone: 02-21-2016 influenza, seasonal, injectable, preservative free Phil Soliz Furlong Work Phone: [place] [address] DO Work Phone: 02-19-2016 influenza virus vacc ine, unspecified formulation Phil Soliz Furlong Work Phone: [facility] 250 DO Work Phone: 07-31-2015 zoster vaccine, live Phil Soliz Furlong Work Phone: [facility] 250 DO Work Phone: 07-31-2015 zoster vaccine, unspecified formulation Phil Reynagalong DO Work Phone: [facility] 02-18-2015 influenza virus vacc ine, unspecified formulation Phil Reynagalong Work Phone: [place] [address] DO Work Phone: 02-17-2015 influenza, seasonal, injectable, preservative free Phil Reynagang DO Work Phone: [facility] 05-11-2014 pneumococcal polysaccharide vaccine, 23 valent Phil Reynagalong Work Phone: [place] [address] DO Work Phone: 02-18-2014 influenza virus vacc ine, unspecified formulation Phil Reynagalong Work Phone: [place] [address] DO Work Phone: 04-03-2013 pneumococcal conjuga te vaccine, 13 valent Phil Soliz Furlong Work Phone: [facility] 250 DO Work Phone: 02-18-2013 influenza virus vacc ine, unspecified formulation Phil Soliz Furlong Work Phone: [facility] [facility] 250 DO Work Phone: 02-18-2013 pneumococcal polysaccharide vaccine, 23 valent Phil G Furlong Work Phone: [facility] 250 DO Work Phone: 12-20-2011 influenza virus vacc ine, unspecified formulation Phil Soliz Furlong Work Phone: [facility] 250 DO Work Phone: 05-21-2010 influenza virus vacc ine, unspecified formulation Phil Soliz Furlong Work Phone: [facility] 250 DO Work Phone: 05-21-2009 influenza virus vacc ine, unspecified formulation Phil Soliz Furlong Work Phone: [facility] 250 DO Work Phone: 05-21-2008 influenza virus vacc ine, unspecified formulation Phil Soliz Furlong Work Phone: [facility] 250 DO Work Phone: 05-21-2007 pneumococcal polysaccharide vaccine, 23 valent Phil Soliz Furlong Work Phone: [place] [address] DO Work Phone: 03-28-2002 pneumococcal polysaccharide vaccine, 23 valent Phil Soliz Furlong Work Phone: [place] [address] DO Work Phone: 03-21-2002 pneumococcal polysaccharide vaccine, 23 valent Phil Furlong DO Work Phone: [facility] 1935 pneumococcal conjuga te vaccine, 7 valent Karlie Craig Dept[facility] of Dermatology Payers Date Payer Category Payer Medicare [employer] MEDICARE UHC MEDICARE ADVANTAGE PPO [id number] 2022-Present [phone] [address] [address] [place] [address] [id number] 2022 Self-pay [id number] 1959 Private Health Insurance [id number] 1959 Private Health Insurance [id number] 1934 Unknown [id number] 2.16.840.1.142205.3.579. 2.593 1934 Unknown [id number] 2.16.840.1.619071.3.579. 2.593 1934 Unknown [id number] 2.16.840.1.607379.3.579. 2.593 1934 Unknown [id number] 2.16.840.1.925985.3.579. 2.593 1934 Unknown [id number] 2.16.840.1.790108.3.579. 2.593 1934 Unknown [id number] 2.16.840.1.876921.3.579. 2.593 1934 Unknown [id number] 2.16.840.1.347131.3.579. 2.593 1934 Unknown [id number] 2.16.840.1.102849.3.579. 2.593 1934 Unknown [id number] 2.16.840.1.119097.3.579. 2.593 1934 Unknown [id number] 2.16.840.1.609382.3.579. 2.593 1934 Unknown [id number] 2.16.840.1.513066.3.579. 2.593 1934 Unknown [id number] 2.16.840.1.386928.3.579. 2.593 1934 Unknown [id number] 2.16.840.1.337511.3.579. 2.593 1934 Unknown [id number] 2.16.840.1.109273.3.579. 2.356 1934 Unknown [id number] 2.16.840.1.419110.3.579. 2.356 1934 Unknown [id number] 2.16.840.1.870302.3.579. 2.356 1934 Unknown [id number] 2.16.840.1.977449.3.579. 2.356 1934 Unknown [id number] 2.16.840.1.145778.3.579. 2.356 1934 Unknown [id number] 2.16.840.1.695187.3.579. 2.356 1934 Unknown [id number] 2.16.840.1.602822.3.579. 2.356 1934 Unknown [id number] 2.16.840.1.687045.3.579. 2.356 1934 Unknown [id number] 2.16.840.1.859508.3.579. 2.356 1934 Unknown [id number] 2.16.840.1.939034.3.579. 2.356 1934 Unknown [id number] 2.16.840.1.584676.3.579. 2.356 1934 Unknown [id number] 2.16.840.1.211280.3.579. 2.356 1934 Unknown [id number] 2.16.840.1.691011.3.579. 2.356 1934 Unknown [id number] 2.16.840.1.572295.3.579. 2.356 1934 Unknown [id number] 2.16.840.1.609265.3.579. 2.1286 Medicare Medicare [id number] Unknown Unknown Dean BC/BS [id number] Unknown [id number] 2.16.840.1.353923.3.579. 2.531 Unknown [id number] 2.16.840.1.268189.3.579. 2.531 Unknown [id number] 2.16.840.1.981433.3.579. 2.531 Unknown [id number] 2.16.840.1.608664.3.579. 2.531 Social History Date Type Detail Facility Start: 09-19-2022 End: 05-29-2023 No alcohol use No alcohol use [facility] 250 DO Work Phone: Comment on above: 2 cups coffee daily; Start: 07-19-2019 End: 03-31-2022 Tobacco smoking status NHIS Never smoked tobacco (finding) [facility] Start: 1935 End: 1935 Sex Assigned At Male [facility] Start: 02-28-2022 Dept. of D ermatology Start: 03-31-2022 Tobacco use and exposure Smokeless tobacco non-user [facility] Start: 05-29-2023 Alcohol intake Ex-drinker (finding) [facility] Start: 09-19-2022 End: 05-29-2023 [facility] [employer] Has the [employer], or [employer] threatened to shut off services in your home in past 12Mo No [facility] Are you now , , , , never or living with a partner? [facility] How often to you hav e a drink containing alcohol? Never [facility] How many standard drinks containing alcohol do you have on a typical day? Patient does not drink [facility] Do you feel stress - tense, restless, nervous, or anxious, or unable to sleep at night because your mind is troubled all the time - these days [OSQ] Not at all [employer] Start: 1935 Sex Assigned At Not on file [facility] Goals Date Patient Goal Desired Activity /State Clinical Notes 05-29-2023 Phil Morin, - 05/29/2023 4:20 PM EST Note Date & Type Note Facility 05-29-2023 History of Present illness Narrative Subjective Patient ID: Rio Jacome is a 87 y.o. male. Rio wanted to discuss several issues today. He is concerned that he did not have an INR done. He did have a protime done but he always gets an INR done at the same time and told the lab that he was there for an INR. His protime was 22.2 which is likely equivalent to an INR of around 2. He has not having any bleeding issues. He would like a renewal of his handicap parking placard. He has not because he has heart failure. It is difficult for him to walk 200 ft without stopping to rest due to shortness a breath. The following portions of the patient's history were reviewed and updated as appropriate: allergies, current medications, past family history, past medical history, past social history, past surgical history, problem list, and medication reconciliation was completed including current medication and post discharge medication. Review of Systems Objective Physical Exam Constitutional: Appearance: He is normal weight. HENT: Head: Normocephalic. Eyes: General: No scleral icterus. Extraocular Movements: Extraocular movements intact. Conjunctiva/sclera: Conjunctivae normal. Neck: Vascular: No carotid bruit. Cardiovascular: Rate and Rhythm: Normal rate and regular rhythm. Pulses: Normal pulses. Heart sounds: Normal heart sounds. No murmur heard. Pulmonary: Effort: Pulmonary effort is normal. No respiratory distress. Breath sounds: Normal breath sounds. No wheezing, rhonchi or rales. Musculoskeletal: Cervical back: Neck supple. Right lower leg: No edema. Left lower leg: No edema. Lymphadenopathy: Cervical: No cervical adenopathy. Neurological: Mental Status: He is alert. Psychiatric: Attention and Perception: Attention normal. Mood and Affect: Mood normal. Speech: Speech normal. Behavior: Behavior normal. Behavior is cooperative. Thought Content: Thought content normal. Cognition and Memory: Cognition normal. Judgment: Judgment normal. Assessment/Plan Rio was seen today for concerns about meds and blood pressure. Diagnoses and all orders for this visit: Paroxysmal atrial fibrillation (CMS-HCC) - Protime & INR; Future New order for protime and INR given to the patient. I will also fax to the [facility]. 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) - Comprehensive metabolic panel; Future Check CMP. We discussed his [employer] occasions. We discussed Entresto. He was not interested in changing his medications. Renew handicap parking placard as he was unable to walk greater than 200 ft without stopping to rest. Essential hypertension Blood pressure at goal continue current regimen Hypothyroidism, unspecified type - TSH; Future Check TSH. Type 2 diabetes mellitus without complication, without long-term current use of insulin (CMS-[facility]) - Hemoglobin A1c; Future Check A1c Arteriosclerotic vascular disease - Lipid panel; Future Check lipid panel documented in this encounter [facility] Evaluation note No assessment inform ation available [facility] Work Phone: Evaluation note N/A Dept. 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 He is doing well. I cannot elicit any angina CHFarrhythmia or neurologic symptomatology. Treatment of his cardiomyopathy was reviewed and he is compliant with medical therapy and denies any symptoms such as orthopnea paroxysmal nocturnal dyspnea or dyspnea with exertion. He also denies syncope near syncope palpitation or defibrillator shock. * We reviewed with him his medical history and he denies symptoms. Because of all the above we will continue as is. -[facility] 250 DO Work Phone: History of Present illness Narrative* Patient returns in follow-up of problems as noted. He is doing well. I cannot elicit any angina CHFarrhythmia or neurologic symptomatology. Treatment of his cardiomyopathy was reviewed and he is compliant with medical therapy and denies any symptoms such as orthopnea paroxysmal nocturnal dyspnea or dyspnea with exertion. He also denies syncope near syncope palpitation or defibrillator shock. * We reviewed with him his medical history and he denies symptoms. Because of all the above we will continue as is. [facility] Work [facility]: History of Present illness NarrativePatient returns for follow-up of problems as noted. [...] bit of leg edema. I doubt it isrelated to pulmonary vascular congestion. I encouraged him, [...] the above we suggest continued therapy as before- [facility] 250 DO Work Phone: History of Present illness Narrative* 86-year-old man referred by Dr. Hernadez for management of a melanoma of the scalp. He was initiallyreferred for Mohs procedure however repeat biopsy now shows 2.5 mm depth and he is ere to discuss WLE and SLN. 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 Sotomayor. That was in 2013. He has not noticed any neck mass. * He has very significant cardiac hx with decreased cardiac function [id number] Work Phone: History of Present illness NarrativePatient returns for follow-up of problems as noted. He is done relatively well. He denies any CHF or angina or arrhythmia symptoms. Symptoms that preceded his original diagnosis of coronary disease are discussed and he has no such symptoms. Control of risk factors including essential hypertension and hyperlipidemia is reviewed and his control is satisfactory and requires no adjustment. His ICD int errogation is lacking. Previous test results are reviewed and are satisfactory. He was encouraged to go to the clinic and have his device checked. He denies syncope or defibrillator shock. The patient states from time to time his activity intolerance but he does not give any symptoms suggestive of heart failure or angina because of this we believe his cardiac status to be stable.[facility] 250 DO Work Phone: History of Present illness NarrativePatient returns in follow-up of problems as noted. In the interim he is done relatively well. He denies any orthopnea PND or dyspnea exertion he has had no hospitalizations for heart failure or anginal discomfort. As before he is somewhat depressed ever since the passing of his . He has none ofthe symptoms of coronary disease that preceded his original diagnosis. Treatment of risk factors for atherosclerotic disease including his hypertension and hyperlipidemia is reviewed and control is adequate and appropriate. Recent defibrillator checks are also reviewed with him and they demonstrateno underlying ventricular or atrial arrhythmias that would necessitate adjustments in pharmacologictherapy. Because of all the above we suggested continued therapy as before without change.[facility] 250 DO Work Phone: InstructionsNot on filedocumented in this encounter [facility] (n[facility])* Name Reason for referral KAIT CARBALLO Dept. of Dermatology Summary Purpose Family History [...] section and content) DATE CREATED AUTHOR 08/08/2019 [facility] DATE CREATED AUTHOR AUTHOR'S ORGANIZ ATION 02/27/2020 [facility] DATE CREATED AUTHOR AUTHOR'S ORGANIZ ATION 08/24/2021 [facility] DATE CREATED AUTHOR AUTHOR'S ORGANIZ ATION 10/27/2022 [facility] DATE CREATED AUTHOR AUTHOR'S ORGANIZ ATION 01/13/2023 [facility] DATE CREATED AUTHOR AUTHOR'S ORGANIZ ATION 01/14/2023 [employer] DATE CREATED AUTHOR AUTHOR'S ORGANIZ ATION 03/27/2023 [facility] DATE CREATED AUTHOR AUTHOR'S ORGANIZ ATION 06/03/2023 [facility] Care Teams (unrecognized sec tion and content) Team Status: Active Member Role Status Dates Phil Morin DO Primary Care Provider Active Team Status: Inactive Member Role Status Dates Phil Morin DO Primary Care Provider Active Renetta Langston MD Attending Provider Active Screening Unit Registered Nurse Relationship Specialty Start Date End Date Phil Morin DO [address], [place] [address] PCP - General Family Medicine 03/07/22 Goals (unrecognized section and content) Goals may be documented in a n alternate sectionGoals may be documented in an alternate sectionGoals may be documented in an alternate sectionGoals may be documented in an alternate sectionNot on filedocumented as of this encounter Reason for Visit (unrecogniz ed section and content) Reason Comments concerns about meds and blood pressure FOR RECORDS PERTAINING TO PATIENTS WHO ARE [...] BE BASED ON THE PRIMARY CLINICAL RECORDS. [employer] provides no warranty or guarantee of the accuracy or completeness of information in this document.
[2023-06-18 12:06] LABS: INR 3.03; Prothrombin Time 30.2 sec (9.0-11.6)
== END 2023-06-18 11:12 | disposition home or self-care (01) ==
PROVIDERS: PCP Family Medicine; Visit Provider Nurse Practitioner Family
DX: I48.0 Paroxysmal atrial fibrillation (principal)
CPT/HCPCS: 36415; 85610

== ENCOUNTER 2023-07-18 09:14 | Outpatient (OUT) | payer MEDICARE, SELFPAY ==
[2023-07-18 10:41] LABS: INR 2.02; Prothrombin Time 20.6 sec (9.0-11.6)
== END 2023-07-18 09:15 | disposition home or self-care (01) ==
LOC: LAB 09:15
PROVIDERS: PCP Family Medicine; Visit Provider Family Medicine
DX: I48.11 Longstanding persistent atrial fibrillation (principal)
CPT/HCPCS: 36415; 85610

== ENCOUNTER 2023-08-16 09:25 | Outpatient (OUT) | payer MEDICARE, SELFPAY ==
[2023-08-16 09:59] LABS: INR 2.47; Prothrombin Time 24.9 sec (9.0-11.6)
== END 2023-08-16 09:26 | disposition home or self-care (01) ==
LOC: LAB 09:26
PROVIDERS: PCP Family Medicine; Visit Provider Family Medicine
DX: I48.11 Longstanding persistent atrial fibrillation (principal)
CPT/HCPCS: 36415; 85610

== ENCOUNTER 2023-08-24 09:45 | Emergency (ER) | payer MEDICARE, SELFPAY ==
[2023-08-24 09:49] VITALS: BP 132/94; PULSE 72; TEMP 36.6; O2SAT 99; BMI 23.0
--- NOTE | 2023-08-24 10:11 | XR_ITS ---
The [address] [address] Patient Name: RIO HUYNH MRN: [id number] date: 1935 Sex: M Assigned Patient Location: ER Current Patient Location: ER Accession/Order Number: [id number] Exam Date: 08/24/2023 10:15 Report Date: 08/24/2023 10:51 At the request of: ELMIRA AUGUSTIN Procedure: XR knee RT 3V PROCEDURE: XR knee RT 3V HISTORY: pain ; acute right knee pain COMPARISON: None. FINDINGS: BONES:No fracture, dislocation, or significant joint space narrowing. Small degenerative osteophytes along margins of patella. Degenerative enthesophyte at quadriceps tendon insertion into the patella. SOFT TISSUES:Atherosclerotic disease. EFFUSION:Small joint effusion. OTHER: Negative. XR/XR knee RT 3V IMPRESSION: 1. Small joint effusion and minimal degenerative joint disease. 2. No acute bone abnormality. Electronically authenticated by: JIE ROBERTS Date: 08/24/2023 10:51
--- NOTE | 2023-08-24 10:11 | US_ITS ---
The [address] [address] Patient Name: RIO HUYNH MRN: [id number] date: 1935 Sex: M Assigned Patient Location: ED.MAIN Current Patient Location: ER Accession/Order Number: [id number] Exam Date: 08/24/2023 10:30 Report Date: 08/24/2023 11:00 At the request of: ELMIRA AUGUSTIN Procedure: US venous doppler LE RT EXAMINATION: US venous doppler LE RT HISTORY: right knee pain COMPARISON: No relevant comparison available. FINDINGS: REGION: Right lower extremity THROMBI: None. COMPRESSIBILITY: Normal compressibility. FLOW: Normal waveform and antegrade flow between 5 and 20 cm/s. OTHER: None. US/US venous doppler LE RT IMPRESSION: 1. No deep vein thrombus within the right lower extremity. Electronically authenticated by: JIE ROBERTS Date: 08/24/2023 11:00
--- NOTE | 2023-08-24 10:13 | ED.GENADUL1 ---
HPI HPI - General Adult General Chief complaint: Extremity Problem, Nontraumatic Stated complaint: LOWER EXTREMITY PAIN Time Seen by Provider: 08/24/23 09:52 Source: patient Mode of arrival: Wheelchair History of Present Illness HPI narrative: Patient is a 88-year-old male who is presenting to the ER with chief complaint of right knee pain. Patient states he is having right knee pain and swelling last night and this evening. Patient's had no acute injury. Patient has no fever or chills. Patient has no right hip pain. No right ankle or foot pain. Patient has no significant swelling to entire right leg. Patient said he was having some mild pain to the right anterior martinez last evening, but more pain to the right knee today. Patient has a history of DVTs and PE. Patient has mild swelling to the right knee, with a right knee suprapatellar joint effusion. Patient has no orthopedic surgeon. Patient PCP is Dr. Brush. Patient's son is at bedside. Patient has been on warfarin for 20 to 25 years. Patient is compliant with his medication. Patient has had no dose changes with his medication recently. All systems are negative except as noted/marked. All systems reviewed and otherwise negative. Nurses note and vital signs reviewed and patient is not hypoxic. General: The patient appears well and in no apparent distress. Patient is resting comfortably on cart. Patient is not toxic, lethargic, or listless Skin: Warm, dry, no pallor noted. There is no rash noted. No petechiae, purpura. Head: Normocephalic, atraumatic Eye: Normal conjunctiva, no drainage, EOMI. PERRL Ears, Nose, Mouth, and Throat: oral mucosa is moist. Nares patent. Mouth without vesicles. Cardiovascular: Regular Rate and Rhythm, no murmur, gallop, rub Respiratory: Patient is in no distress, no accessory muscle use, lungs are clear to auscultation, no wheezing, rales or rhonchi Musculoskeletal: Patient has full range of motion of all of the extremities except to the right knee. Patient does have crepitus noted with flexion extension to the right knee. Patient has no pain to the posterior aspect of right thigh, popliteal fossa, and calf. Patient has full range of motion of right ankle and foot with no difficulty. Patient has minimal pain with right flexion/extension of the right hip, along with minimal pain with right hip internal/external rotation. Patient has no acute signs of DVT at this time besides swelling to the right knee, but this appears to be more intra-articular versus DVT signs. No motor, sensory, or focal neurological deficits Neurological: A&O x4, normal speech Psychiatric: Cooperative Related Data Previous Rx's ?Medication ?Instructions ?Recorded tramadol 50 mg tablet 50 mg PO Q8H PRN pain #14 tabs 08/24/23 Allergies Allergy/AdvReac Type Severity Reaction Status Date / Time No Known Drug Allergies Allergy Verified 08/24/23 09:54 Opioid HPI Opioid Management Most Recent Opioid Data: No Data to Display Exam Constitutional Vital Signs, click to edit/add: Last Vital Signs Temp 97.8 F 08/24/23 09:49 Pulse 72 08/24/23 09:49 Resp 18 08/24/23 09:49 BP 132/94 H 08/24/23 09:49 Pulse Ox 99 08/24/23 09:49 O2 Del Method Room Air 08/24/23 09:49 Course Vital Signs Vital signs: Vital Signs Temperature 97.8 F 08/24/23 09:49 Pulse Rate 72 08/24/23 09:49 Respiratory Rate 18 08/24/23 09:49 Blood Pressure 132/94 H 08/24/23 09:49 Pulse Oximetry 99 08/24/23 09:49 Oxygen Delivery Method Room Air 08/24/23 09:49 Temperature 97.8 F 08/24/23 09:49 Pulse Rate 72 08/24/23 09:49 Respiratory Rate 18 08/24/23 09:49 Blood Pressure 132/94 H 08/24/23 09:49 Pulse Oximetry 99 08/24/23 09:49 Oxygen Delivery Method Room Air 08/24/23 09:49 Medical Decision Making MDM Narrative Medical decision making narrative: Patient does not have any signs or symptoms of DVT, but patient's chief concern is DVT. Patient had clots in his right leg in the past that went to his lungs. Patient has been on Coumadin and warfarin for 5 years. Patient had an x-ray of his right knee along with ultrasound of his right knee. Patient does have an appointment with Dr. Garcia at 1000AM on Sunday Patient's x-ray showed chronic changes, no acute findings. Ultrasound showed no deep vein thrombosis. Education on ice, alternating [id number]-[id number]-fsmuchs medication for pain, and see orthopedics on Sunday was discussed with patient and son, no questions at discharge. Discharge Plan Discharge Stand Alone Forms: Portal Instructions Chief Complaint: Extremity Problem, Nontraumatic Clinical Impression: Internal derangement of right knee, Pain, joint, knee, right Patient Disposition: Home, Self-Care Time of Disposition Decision: 11:07 Condition: Fair Prescriptions / Home Meds: New tramadol 50 mg tablet 50 mg PO Q8H PRN (Reason: pain) Qty: 14 0RF Print Language: Brazilian Instructions: Knee Sprain (ED), Knee Pain (ED), P.R.I.C.E. Treatment (ED) Additional Instructions: Use ice 20 minutes on, 20 minutes off. Do not use heat. Patient is to use tramadol as needed nurse's notes and vital signs reviewed. Patient is not hypoxic. You have an appointment at 10:[address] Garcia's office August 26. Copies of your x-ray report and ultrasound were given to you as well Referrals: LOU BRUSH [Primary Care Provider] - 1 week Anand Garcia MD [Physician] - 1 week Discharge Date/Time: 08/24/23 11:33
== END 2023-08-24 11:33 | disposition home or self-care (01) ==
PROVIDERS: Emergency Provider Emergency Medicine; PCP Family Medicine
DX: M23.91 Unspecified internal derangement of right knee (principal); M25.561 Pain in right knee; Z86.718 Personal history of other venous thrombosis and embolism; Z86.711 Personal history of pulmonary embolism; Z79.01 Long term (current) use of anticoagulants
CPT/HCPCS: 73562; 93971; 99284

== ENCOUNTER 2023-09-17 09:29 | Outpatient (OUT) | payer MEDICARE, SELFPAY ==
--- OUTSIDE RECORDS SUMMARY | 2023-09-17 09:41 | XMS_ITS | CCD ---
Author Organization [facility] Care Team Providers Care Field Agronomist Name Role Phone Phil Morin Unavailable Unavailable Unavailable Ronnelllong, DO Villarreal Primary Care Provider [phone] MD Renetta Langston Attending Provider Karlie Craig Unavailable Unavailable Florentino Hernadez Unavailable Unavailable Furlong, DO Villarreal Primary Care Provider MD Renetta Langston Attending Provider Gadiel Estevez Unavailable Unavailable Furlong, DO Villarreal Primary Care Provider [phone] MD Renetta Langston Attending Provider SUSANNAH, DR JARON Roger Admitting Unavailable KUNS, DR JARON Roger Consulting Unavailable KUNShalonda, DR JARON Roger Attending Unavailable FURLONG, DR PHIL Soliz Primary Care Unavailable FURLONG, DR PHIL Soliz Consulting Unavailable FURLONG, DR PHIL Soliz Admitting Unavailable FURLONG, DR PHIL Soliz Attending Unavailable FURLONG, DR PHIL Soliz Primary Care Unavailable KUNS, DR JARON Roger Consulting Unavailable KUNShalonda, DR JARON Roger Attending Unavailable FURLONG, DR PHIL Soliz Primary Care Unavailable KUNShalonda, DR JARON Roger Admitting Unavailable KUNShalonda, DR [...] FURLONG, DR PHIL Soliz Consulting Unavailable HernadezFlorentino palma Attending Unavailable uener, Dr. Ketan Andrews Referring Unavaila ble Furlong, Dr. Phil Forrest [facility] Care Unava ilable Furlong, Dr. Phil Forrest [facility] Care Unava ilable Furlong, Dr. Phil Forrest [...] Attending Unavailabl e Florentino Hernadez Referring Unavailable Furlong, Dr. Phil Forrest Primary Care Unava ilable Honda, Dr. Rigo Webster Attending Unavailabl e Florentino Hernadez Referring Unavailable Honda, Dr. Rigo Webster Attending Unavailabl e Coreyng, Dr. Phil Forrest Primary Care Unava ilable Carl II, Dr. Renetta Valero Attending Unavailable Carl II, Dr. Renetta Valero Referring Unavailable Furlong, Dr. Phil Forrest Primary Care Unava ilable Furlong, Dr. Phil Forrest Primary Care Unava ilable Carl II, Dr. Renetta Valero Attending Unavailable Carl II, Dr. Renetta Valero Referring Unavailable Thuener, Dr. Ketan Andrews Attending Unavaila ble Furlong, Dr. Phil Forrest Primary Care Unava ilable Florentino Hernadez Attending Unavailable Odell, Dr. George Menard Referring Unava ilable Furlong, Dr. Phil Forrest Primary Care Unava ilable Furlong, Dr. Phil Forrest Primary Care Unava ilable Florentino Hernadez Attending Unavailable UNKNOWN, UNKNOWN Referring Unavailable Furlong, DO Phil Primary Care Provider MD Renetta Langston Attending Provider Furng DOPhil Primary Care Provider [facility] Phil Primary Care Provider [phone] MD Renetta Langston Attending Provider [facility], Phil Primary Care Unavailable Renetta Langston Attending Unavail able Renetta Langston Admitting Unavail able Renetta Langston Admitting Unavail able [facility] Phil Primary Care Unavailable Renetta Langston Attending Unavail able Renetta Langston Admitting Unavail able [facility] Phil Primary Care Unavailable Renetta Langston Attending Unavail able [facility], Phil Primary Care Unavailable Renetta Langston Admitting Unavail able Renetta Langston Attending Unavail able FURLONGPHIL G Attending Unavailable FURLONG, PHIL G Referring Unavailable FURLONG, PHIL G Primary Care Unavailable FURLONGPHIL G Attending Unavailable FURLONG, PHIL G Referring Unavailable FURLONG, PHIL G Primary Care Unavailable FURLONG, PHIL G Referring Unavailable FURLONG, PHIL G Primary Care Unavailable Allergies Allergy Classification Reported Allergen(s) Allergy Type Date of Onset Reaction(s) Facility (17 sources) Aspirin; Translations: [aspirin] Drug Allergy 2 Other (See Comments) -[facility] 250 DO Work Phone: (1 source) No Alert Propensity to adverse reactions to drug 2 [facility] Medications Current Medications Medication Drug Class(es) Dates Sig (Normalized) Sig (Original) carvedilol 6.25 mg oral tablet (20 sources) alpha-Adrenergic Gen, beta-Adrenergic Gen Start: 04-24-2014 carvediloL (COREG) 6.25 mg tablet eplerenone 25 mg oral tablet (20 sources) Aldosterone Antagonist Start: 04-24-2014 eplerenone (INSPRA) 25 mg tablet esomeprazole 20 mg delayed release oral capsule (5 sources) Proton Pump Inhibitor esomeprazo le (NexIUM) 20 mg capsule daily as needed. 0 Active fluticasone propionate 0.05 mg/actuat metered dose nasal spray (10 sources) Corticosteroid Start: 07-19-19 20 Fluticasone Propionate Active July 19, 2019 12:00am lisinopril 2.5 mg oral tablet (20 sources) Angiotensin Converting Enzyme Inhibitor Start: 07-19-19 20 Lisinopril Active TABLET July 19, 2019 12:00am rosuvastatin calcium 20 mg oral tablet (20 sources) HMG-CoA Reductase Inhibitor Start: 07-19-19 20 Rosuvastatin Active TABLET July 19, 2019 12:00am warfarin sodium 5 mg oral tablet (20 [...] Drug Class(es) Dates Sig (Normalized) Sig (Original) dapagliflozin 5 mg oral tablet (2 sources) Sodium-Glucose Cotransporter 2 Inhibitor Start: 08-09-2023 End: 08-23-2023 take 1 tablet by mouth in the morning dapagliflozin propanediol (FARXIGA) 5 mg tablet Indications: Type 2 diabetes mellitus without complication, without long-term current use of insulin ([facility]) , Hypertensive 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 ([facility]) Take 1 tablet (5 mg total) by mouth in the morning. 90 tablet 1 08/09/2023 08/23/2023 Discontinued (Patient Never Started This Medication) furosemide 20 mg oral tablet (17 sources) Loop Diuretic Start: 11-16-2020 take 1 [...] 0 Refills: 0 Ordered: 02-May-2021 DO Active tiZANidine 2 mg oral tablet (3 sources) Central alpha-2 Adrenergic Agonist Start: 03-27-2023 End: 08-06-2023 take 1 tablet by mouth every eight hours as needed for muscle spasms tiZANidine (ZANAFLEX) 2 mg tablet Indications: Neck pain Take 1 tablet (2 mg total) by mouth every 8 (eight) hours as needed for muscle spasms. 30 tablet 1 03/27/2023 08/06/2023 Discontinued (Therapy completed) Problems Active Problems Problem Classification Problem Date Documented Da te Episodic/Chronic Acute myocardial infarction (14 sources) Myocardial infarction; Translations: [Acute myocardial infarction of unspecified site, episode of care unspecified] Onset: 2 03-07-2022 Chronic Cancer of bladder (17 sources) Cancer in situ of urinary bladder; [...] Palpitations; Translations: [Palpitations] Episodic Chronic kidney disease (13 sources) Chronic kidney disease; Translations: [Chronic kidney disease, unspecified] Onset: 6 03-07-2022 Chronic Conduction disorders (12 sources) Automatic implantable cardiac defibrillator in situ; Translations: [Automatic implantable cardiac defibrillator in situ] Chronic Coronary atherosclerosis and other heart disease (20 sources) History of myocardial infarction; Translations: [Old myocardial infarction] Onset: 2 05-29-2023 Chronic Diabetes mellitus with complications (7 sources) Microalbuminuric diabetic nephropathy; Translations: [Type 2 diabetes mellitus with diabetic nephropathy] Onset: 8 03-07-2022 Chronic Diabetes mellitus without complication (10 sources) Type 2 diabetes mellitus without complication; Translations: [Type 2 diabetes mellitus without complications] Onset: 6 05-29-2023 Chronic Disorders of lipid metabolism (20 sources) Hyperlipidemia; Translations: [Other and unspecified hyperlipidemia] Onset: 6 03-07-2022 Chronic Essential hypertension (20 sources) Essential hypertension; Translations: [Unspecified essential hypertension] Onset: 6 05-29-2023 Chronic Glaucoma (5 sources) Glaucoma; Translations: [Unspecified glaucoma] Onset: 6 03-07-2022 Chronic Hypertension with complications and secondary hypertension (10 sources) Hypertensive 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; Translations: [Hypertensive heart and chronic kidney disease with heart failure and stage 1 through stage 4 chronic kidney disease, or unspecified chronic kidney disease] Onset: 2 05-29-2023 Chronic Malignant neoplasm without specification of site (14 sources) Malignant neoplastic disease; Translations: [Other malignant neoplasm without specification of site] Onset: 2 03-07-2022 Chronic Melanomas of skin (20 sources) Malignant melanoma; Translations: [Melanoma of skin, site unspecified] Onset: 2 03-07-2022 Chronic Neoplasms of unspecified nature or uncertain behavior (6 sources) Neoplasm of uncertain behavior of skin Onset: Episodic Nutritional deficiencies (5 sources) Vitamin D deficiency; Translations: [Vitamin D deficiency, unspecified] Onset: 7 03-07-2022 Chronic Osteoporosis (5 sources) Osteoporosis; Translations: [Age-related osteoporosis without current pathological fracture] Onset: 2 03-07-2022 Chronic Other acquired deformities (5 sources) Contracture of joint of left ankle; Translations: [Contracture, left ankle] Onset: 2 03-07-2022 Chronic Other aftercare (12 sources) Drug therapy finding; Translations: [Long-term (current) use of other medications] Episodic Other diseases of kidney and ureters (5 sources) Renal mass; Translations: [Other specified disorders of kidney and ureter] Onset: 6 03-07-2022 Chronic Other ear and sense organ disorders (5 sources) Asymmetrical sensorineural hearing loss; Translations: [Sensorineural hearing loss, bilateral] Onset: 2 03-07-2022 Chronic Other endocrine disorders (6 sources) Hyperparathyroidism; Translations: [Hyperparathyroidism, unspecified] Onset: 2 03-07-2022 Chronic Other endocrine disorders (1 source) Hyperparathyroidism, unspecified; Translations: [Hyperparathyroidism, unspecified] Onset: 2 Chronic Gianna-; endo-; and myocarditis; cardiomyopathy (except that caused by tuberculosis or sexually transmitted disease) (17 sources) Cardiomyopathy; Translations: [Other primary cardiomyopathies] Onset: [...] health status] Onset: 2 Episodic Thyroid disorders (7 sources) Hypothyroidism; Translations: [Hypothyroidism, unspecified] Onset: 8 05-29-2023 Chronic Transient cerebral ischemia (17 sources) Transient cerebral ischemia; Translations: [Unspecified transient cerebral ischemia] Onset: 2 05-29-2023 Chronic Unclassified (1 source) Ventricular tachycardia, unspecified; Translations: [Ventricular tachycardia, unspecified] Onset: 4 Unclassified (1 source) Ventricular tachycardia, unspecified; Translations: [Ventricular tachycardia, unspecified] Onset: 3 Unclassified (1 source) Encounter for adjustment and management of automatic implantable cardiac defibrillator; Translations: [Encounter for adjustment and management of automatic implantable cardiac defibrillator] Onset: 3 Unclassified (1 source) Longstanding persistent atrial fibrillation; Translations: [Longstanding persistent atrial fibrillation] Onset: 3 Unclassified (1 source) concerns about meds and blood pressure Onset: 4 Past or Other Problems Problem Classification Problem Date Documented Da te Episodic/Chronic Biliary tract disease (10 sources) Biliary colic; Translations: [Calculus of bile duct without cholangitis or cholecystitis without obstruction] Onset: 02-06-2020 07-19-2019 Episodic Crushing injury or internal injury (5 sources) Perinephric hematoma; Translations: [Minor contusion of unspecified kidney, initial encounter] Onset: 03-07-2022 03-07-2022 Episodic Mood disorders (5 sources) Mood disorders Onset: 05-29-2023 Resolved: 08-06-2023 05-29-2023 Other gastrointestinal disorders (5 sources) Nontraumatic hemoperitoneum; Translations: [Nontraumatic retroperitoneal hematoma] Onset: 05-29-2015 03-07-2022 Episodic Other lower respiratory disease (17 sources) Dyspnea on exertion; Translations: [Shortness of breath] Onset: 03-01-2023 05-29-2023 Episodic Other non-epithelial cancer of skin (10 sources) Basal cell carcinoma of skin; Translations: [Basal cell carcinoma of skin of scalp and neck] Onset: 03-07-2022 03-07-2022 Episodic Other nutritional; endocrine; and metabolic disorders (5 sources) Hyperuricemia; Translations: [Hyperuricemia without signs of inflammatory arthritis and tophaceous disease] Onset: 02-08-2017 03-07-2022 Episodic Other skin disorders (5 sources) Actinic keratosis; Translations: [Actinic keratosis] Onset: 03-07-2022 03-07-2022 Episodic Residual codes; unclassified (17 sources) Body mass index 20-24 - normal; Translations: [Body Mass Index between 19-24, adult] Onset: 03-07-2022 03-07-2022 Episodic Residual codes; unclassified (12 sources) History finding; Translations: [Other specified conditions influencing health status] Resolved: 04-24-2014 Episodic Unclassified (12 sources) Never smoked tobacco; Translations: [Never a smoker] Results Test Name Value Interpretation Reference Range Facility COMPREHENSIVE METABOLIC PANE Donato 08-06-2023 Albumin [Mass/Vol] 4.2 g/dL Normal 3.2-5.3 [facility] Comment on above: Performed By: #### Gorge DELANEY, 64849-6, 6-3 #### [facility] ([id number]) [address], [address] [place] [address] ALP [Catalytic activity/Vol] 77 U/L Normal 39-130 [facility] Comment on above: Performed By: #### Gorge DELANEY, 33397-8, 3015-3 #### [facility] ([id number]) [address], [address] [place] [address] ALT [Catalytic activity/Vol] 11 U/L Normal 0-40 [facility] Comment on above: Performed By: #### Gorge DELANEY, 31514-4, 6-3 #### [facility] ([id number]) [address], [address] [place] [address] Anion gap [Moles/Vol] 8 mmol/L Normal 5-15 [facility] Comment on above: Performed By: #### Gorge DELANEY, 56391-7, 6-3 #### [facility] ([id number]) [address], [address] [place] [address] AST [Catalytic activity/Vol] 19 U/L Normal 0-41 [facility] Comment on above: Performed By: #### Gorge DELANEY, 79350-6, 6-3 #### [facility] ([id number]) [address], [address] [place] [address] Bilirubin [Mass/Vol] 0.5 mg/dL Normal 0.3-1.2 [facility] Comment on above: Performed By: #### Gorge DELANEY, 00584-7, 3015-3 #### [facility] ([id number]) [address], [address] [place] [address] Calcium [Mass/Vol] 9.1 mg/dL Normal 8.5-10.5 [facility] Comment on above: Performed By: #### Gorge DELANEY, 61447-6, 3015-3 #### [facility] ([id number]) [address], [address] [place] [address] Chloride [Moles/Vol] 106 mmol/L Normal 98-109 [facility] Comment on above: Performed By: #### Gorge DELANEY, 73871-8, 3015-3 #### [facility] ([id number]) [address], [address] [place] [address] CO2 [Moles/Vol] 26 mmol/L Normal 22-32 [facility] Comment on above: Performed By: #### Gorge DELANEY, 20329-3, 3015-3 #### [facility] ([id number]) [address], [address] [place] [address] Creatinine [Mass/Vol] 2.12 mg/dL High 0.60-1.30 [facility] Comment on above: Result Comment: METH OD TRACEABLE TO IDMS STANDARD Performed By: #### Gorge DELANEY, 47276-7, 3015-3 #### [facility] ([id number]) [address], [address] [place] [address] GFR/1.73 sq M.predicted among non-blacks MDRD (S/P/Bld) [Vol rate/Area] 29 mL/min/{1.73_m2} Low >59 [facility] Comment on above: Result Comment: Reported eGFR is based on the CKD-EPI 2020 equation that does not use a race coefficient. Performed By: #### Gorge DELANEY, 76473-6, 3015-3 #### [facility] ([id number]) [address], [address] [place] [address] Glucose [Mass/Vol] 113 mg/dL High 65-99 [facility] Comment on above: Performed By: #### Gorge DELANEY, 88522-5, 6-3 #### [facility] ([id number]) [address], [address] [place] [address] Potassium [Moles/Vol] 4.8 mmol/L Normal 3.5-5.0 [facility] Comment on above: Performed By: #### Gorge DELANEY, 07227-6, 6-3 #### [facility] ([id number]) [address], [address] [place] [address] Protein [Mass/Vol] 7.0 g/dL Normal 6.0-8.0 [facility] Comment on above: Performed By: #### Gorge DELANEY, 92015-6, 3015-3 #### [facility] ([id number]) [address], [address] [place] [address] Sodium [Moles/Vol] 140 mmol/L Normal 134-146 [facility] Comment on above: Performed By: #### Gorge DELANEY, 01170-1, 6-3 #### [facility] ([id number]) [address], [address] [place] [address] Urea nitrogen [Mass/Vol] 24 mg/dL Normal 5-27 [facility] Comment on above: Performed By: #### Gorge DELANEY, 54578-5, 6-3 #### [facility] ([id number]) [address], [address] [place] [address] Comprehensive metabolic pane donato 08-06-2023 Albumin [Mass/Vol] 4.2 g/dL 3.2 - 5.3 g/dL [facility] ALP [Catalytic activity/Vol] 77 U/L 39 - 130 U/L [facility] ALT No additional P-5'-P [Catalytic activity/Vol] 11 U/L 0 - 40 U/L [facility] Anion gap [Moles/Vol] 8 mmol/L 5 - 15 mmol/L [facility] AST [Catalytic activity/Vol] 19 U/L 0 - 41 U/L [facility] Bilirubin [Mass/Vol] 0.5 mg/dL 0.3 - 1 .2 mg/dL [facility] Calcium [Mass/Vol] 9.1 mg/dL 8.5 - 10. 5 mg/dL [facility] Chloride [Moles/Vol] 106 mmol/L 98 - 10 9 mmol/L [facility] CO2 [Moles/Vol] 26 mmol/L 22 - 32 mmol/L [facility] Creatinine [Mass/Vol] 2.12 mg/dL High 0.60 - 1.30 mg/dL [facility] Comment on above: METHOD TRACEABLE TO [facility] STANDARD eGFR (CKD-EPI)non-race dependent 29 Low - PINF [facility] Comment on above: Reported eGFR is based on the CKD-EPI 2020 equation that does not use a race coefficient. Glucose [Mass/Vol] 113 mg/dL High 65 - 99 mg/dL [facility] Potassium [Moles/Vol] 4.8 mmol/L 3.5 - 5.0 mmol/L [facility] Protein [Mass/Vol] 7.0 g/dL 6.0 - 8.0 g/dL [facility] Sodium [Moles/Vol] 140 mmol/L 134 - 146 mmol/L [facility] Urea nitrogen [Mass/Vol] 24 mg/dL 5 - 27 mg/dL [facility] HGB A1C (GLYCO-HGB)on 2023 Glucose [Mass/Vol] 140 mg/dL Normal [facility] Comment on above: Performed By: #### Gorge , 17892-2, 3016-3 #### [facility] ([id number]) [address] [place] [address] HbA1c (Bld) [Mass fraction] 6.5 % High 4.4-5.6 [facility] Comment on above: Result Comment: NOTE ADA Guidelines Result HgbA1c Normal : less than 5.7 % Prediabetes : 5.7 % to 6.4 % Diabetes : > 6.4 % Use with caution in patients with abnormal hemoglobin variants as the half-life of red blood cells and in vivo glycation rates are affected. Performed By: #### C , 05862-4, 3016-3 #### [facility] ([id number]) [address] [place] [address], [address] [place] [address] Hemoglobin A1con 08-06-2023 Average glucose Estimated from glycated hemoglobin (Bld) [Mass/Vol] 140 mg/dL [facility] HbA1c (Bld) [Mass fraction] 6.5 % High 4.4 - 5.6 % [facility] Comment on above: NOTE ADA Guidelines Result HgbA1c Normal : less than 5.7 % Prediabetes : 5.7 % to 6.4 % Diabetes : > 6.4 % Use with caution in patients with abnormal hemoglobin variants as the half-life of red blood cells and in vivo glycation rates are affected. Interpretation and review of laboratory results Abnormal [facility] Lipid 1996 panelon Cholesterol [Mass/Vol] 91 mg/dL Low 150 - 200 mg/dL [facility] Cholesterol in HDL [Mass/Vol] 39 mg/dL Low 39 - PINF mg/dL [facility] Comment on above: HDL <40 mg/dL - High Risk HDL > or = 40mg/dL- Desirable HDL >60 mg/dL - Negative Risk Cholesterol in LDL [Mass/Vol] 18 mg/dL NINF - 130 mg[facility] Comment on above: LDL <100 mg/dL - Desirable LDL >160 mg/dL - High Risk Cholesterol in VLDL [Mass/Vol] 34 mg/dL High 0 - 30 mg/dL [facility] Cholesterol.total/Chol esterol in HDL [Mass ratio] 2.3 {ratio} 1.0 - 5.0 [facility] Triglyceride [Mass/Vol] 168 mg/dL High 27 - 150 mg/dL [facility] Cholesterol [Mass/Vol] 91 mg/dL Low 150-200 [facility] Comment on above: Performed By: #### Gorge DELANEY, 90517-2, 3016-3 #### [facility] ([id number]) [address], [address] [place] [address] Cholesterol in HDL [Mass/Vol] 39 mg/dL Low >39 [facility] Comment on above: Result Comment: HDL <40 mg/dL - High Risk HDL > or = 40mg/dL- Desirable HDL >60 mg/dL - Negative Risk Performed By: ###[place], [address]-9, 3016-3 #### [facility] ([id number]) [address], [address] [place] [address] Cholesterol in LDL [Mass/Vol] 18 mg/dL Normal <130 [facility] Comment on above: Result Comment: LDL <100 mg/dL - Desirable LDL >160 mg/dL - High Risk Performed By: #### Gorge DELANEY, 38804-8, 3016-3 #### [facility] ([id number]) [address], [address] [place] [address] Cholesterol in VLDL [Mass/Vol] 34 mg/dL High 0-30 [facility] Comment on above: Performed By: #### C RHETT, 61660-3, 3016-3 #### [facility] ([id number]) [address], [address] [address] CHOLESTEROL:HDL 2.3 Normal 1.0-5.0 [facility] Comment on above: Performed By: #### Gorge DELANEY, 27545-5, 3016-3 #### [facility] ([id number]) [address], [address] [address] Triglyceride [Mass/Vol] 168 mg/dL High 27-150 [facility] Comment on above: Performed By: #### Gorge DELANEY, 39497-3, 3016-3 #### [facility] ([id number]) [address] [facility], [address] [address] No Panel Informationon 08-05 Interpretation and review of laboratory results Abnormal [facility] TSHon 08-06-2023 TSH Qn 3.12 m[IU]/L [facility] TSH Qnon 08-06-2023 [facility] TSH 3.12 uIU/mL Normal 0.49-4.67 [facility] Comment on above: Performed By: #### Gorge DELANEY, 51045-5, 3016-3 #### [facility] ([id number]) [address], [address] [address] Protime & INRon 07-18-2023 External Inr 2.02 [facility] External Protime 20.6 [facility] Office Visit (Cardiology)on 01-12-2023 Follow-up visit Diagnoses/Problems [...] a smoker Tobacco Use Screening; Status:Complete; Done: [id number] Ventricular tachycardia IO EKG Electrocardiogram- 12 Lead; Status:Complete; Done: [id number] Patient Instructions Please bring all medicines, vitamins, [...] up in [ 9] months Chief Complaint DONOVAN JACOME is being seen for a 6-7 [...] negative for complaint. Vitals Vital Signs Recorded: [id number] 02:17PM Heart Rate72, Apical [id number], RUE, Sitting [id number], RUE, Sitting Height5 ft 9 in [id number] lb BMI Bsbnuposau69.78 kg/m2 BSA Calculated1.88 Tobacco Useb) No Falls [...] Jan 13 2023 2:45PM EST (Author) Normal Search to Phone Tobacco Screening.on 023 Fall risk assessment a) No falls within the last year [facility] 250 DO Work Phone: Tobacco use status CP b) No [facility] 250 DO Work Phone: PROTIMEon 10-17-2022 INR Coag (PPP) [Relative time] 2.38 {INR} Normal [facility] Comment on above: Performed By: #### P T #### [facility] [address] [place] [address] Dr. Sariah Boyle INR GUIDELINES SEE BELOW Normal [facility] Comment on above: Result Comment: NHUNG RED INR: 2.0 - 3.0 CONDITIONS NOT LISTED BELOW 2.5 - 3.5 FOR PROSTHETIC HEART VALVE REPLACEMENT 2.5 - 3.5 RECURRENT THROMBOSIS Performed By: #### P T #### [facility] [address] [address] [address] Sariah Boyle PT Coag (PPP) [Time] 24.0 s Critically high 9.0-11.6 [facility] Comment on above: Performed By: #### P T #### [facility] [address] [place] [address] Dr. Sariah Boyle PROTIMEon 09-15-2022 INR Coag (PPP) [Relative time] 2.18 {INR} Normal [facility] Comment on above: Performed By: #### P T #### [facility] [address] [place] [address] Dr. Sariah Boyle INR GUIDELINES SEE BELOW Normal [facility] Comment on above: Result Comment: NHUNG RED INR: 2.0 - 3.0 CONDITIONS NOT LISTED BELOW 2.5 - 3.5 FOR PROSTHETIC HEART VALVE REPLACEMENT 2.5 - 3.5 RECURRENT THROMBOSIS Performed By: #### P T #### [facility] [address] [place] [address] Dr. Sariah Boyle PT Coag (PPP) [Time] 22.1 s Critically high 9.0-11.6 [facility] Comment on above: Performed By: #### P T #### [facility] [address] [address] [address] Sariah Boyle PROTIMEon 08-15-2022 INR Coag (PPP) [Relative time] 2.44 {INR} Normal [facility] Comment on above: Performed By: #### P T #### [facility] [address] [address] [address] Sariah Boyle INR GUIDELINES SEE BELOW Normal [facility] Comment on above: Result Comment: NHUNG RED INR: 2.0 - 3.0 CONDITIONS NOT LISTED BELOW 2.5 - 3.5 FOR PROSTHETIC HEART VALVE REPLACEMENT 2.5 - 3.5 RECURRENT THROMBOSIS Performed By: #### P T #### [facility] [address] [place] [address] Dr. Sariah Boyle PT Coag (PPP) [Time] 24.6 s Critically high 9.0-11.6 [facility] Comment on above: Performed By: #### P T #### [facility] [address] [place] [address] Dr. Sariah Boyle PROTIMEon 07-18-2022 INR Coag (PPP) [Relative time] 2.33 {INR} Normal [facility] Comment on above: Performed By: #### P T #### [facility] [address] [place] [address] Dr. Sariah Boyle INR GUIDELINES SEE BELOW Normal [facility] Comment on above: Result Comment: NHUNG RED INR: 2.0 - 3.0 CONDITIONS NOT LISTED BELOW 2.5 - 3.5 FOR PROSTHETIC HEART VALVE REPLACEMENT 2.5 - 3.5 RECURRENT THROMBOSIS Performed By: #### P T #### [facility] [address] [place] [address] Dr. Sariah Boyle PT Coag (PPP) [Time] 23.5 s Critically high 9.0-11.6 [facility] Comment on above: Performed By: #### P T #### [facility] [address] [place] [address] Dr. Sariah Boyle Office Visit (Cardiology)on 07-14-2022 [...] Follow up in 6-9 months Chief Complaint DONOVAN JACOME is being seen for a 6 [...] negative for complaint. Vitals Vital Signs Recorded: [id number] 03:41PM Heart Rate80, L Radial Rzvnpyju982, LUE, Sitting Niqpmfbji48, LUE, Sitting Height5 ft 9 in Ovaexi303 lb BMI Ycdhindljn49.92 kg/m2 BSA Calculated1.89 Tobacco Useb) No PHQ-2 [...] Electronically si (more content not included)... Normal Search to Phone Tobacco Screening.on 023 Adult depression screening assessment No [facility] [employer] [facility] 250 DO Work Phone: Fall risk assessment a) No falls within the last year [facility] 250 DO Work Phone: Tobacco use status [facility] b) No [facility] 250 DO Work Phone: PROTIMEon 07-04-2022 INR Coag (PPP) [Relative time] 1.91 {INR} Normal [facility] Comment on above: Performed By: #### P T #### [facility] [address] [place] [address] Dr. Sariah Boyle INR GUIDELINES SEE BELOW Normal [facility] Comment on above: Result Comment: NHUNG RED INR: 2.0 - 3.0 CONDITIONS NOT LISTED BELOW 2.5 - 3.5 FOR PROSTHETIC HEART VALVE REPLACEMENT 2.5 - 3.5 RECURRENT THROMBOSIS Performed By: #### P T #### [facility] [address] [place] [address] Dr. Sariah Boyle PT Coag (PPP) [Time] 19.5 s Critically high 9.0-11.6 [facility] Comment on above: Performed By: #### P T #### [facility] [address] [place] [address] Dr. Sariah Boyle Dermatopathologyon 3 Dermatopathology Name DONOVAN JACOME Pathologist: RIGO CHRISTIAN MD Date of Procedure: 06/15/2022 Date Received: 06/16/2022 Date Reported 06/23/2022 Submitting Physician: FLORENTINO HERNADEZ MD, Location: [facility] Other External # FINAL DIAGNOSIS [...] determined by the Department of Pathology at [facility]. The FDA does not require [...] appropriately. Electronically Signed Out By RIGO CHRISTIAN MD/[facility] By the signature on this report, the individual or group listed as making the Final Interpretation/Diagno sis certifies that they have reviewed this case. 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 ([place] office). Specimens Submitted As: A: SKIN, SCALP STAGE II A B: SKIN, SCALP STAGE II B Gross Description: A: Received in formalin, labeled A, is a camara, semi-circular, ellipsoid piece of skin measuring 80y6i0uz, oriented by the surgeon with orange ink on the bisected margin and blue ink marking the radii on either side of the central black-inked margin. The specimen is embedded en face in toto in one block. B: Received in formalin, labeled B, is a camara, semi-circular, ellipsoid piece of skin measuring 01u8j7mo, oriented by the surgeon with orange ink on the bisected margin and green ink marking the radii on either side of the central black-inked margin. The specimen is embedded en face in toto in one block. [facility]/06/16/2022 The assays/tests were performed with appropriate positive and negative controls which stained appropriately. [facility] [address] [address] Normal [facility] Comment on above: Performed By: #### D #### Dermatopathology No Panel Informationon 06-[address] [address] DO Work Phone: PROTIMEon 06-07-2022 INR Coag (PPP) [Relative time] 1.44 {INR} Normal [facility] Comment on above: Performed By: #### P T #### [facility] [address] [place] [address] Dr. Sariah Boyle INR GUIDELINES SEE BELOW Normal [facility] Comment on above: Result Comment: NHUNG RED INR: 2.0 - 3.0 CONDITIONS NOT LISTED BELOW 2.5 - 3.5 FOR PROSTHETIC HEART VALVE REPLACEMENT 2.5 - 3.5 RECURRENT THROMBOSIS Performed By: #### P T #### [facility] [address] [place] [address] Dr. Sariah Boyle PT Coag (PPP) [Time] 15.0 s Critically high 9.0-11.6 [facility] Comment on above: Performed By: #### P T #### [facility] [address] [address] [address] Sariah Boyle Dermatopathologyon Dermatopathology Name DONOVAN JACOME Pathologist: RIGO CHRISTIAN MD Date of Procedure: 06/06/2022 Date Received: 06/07/2022 Date Reported 06/12/2022 Submitting Physician: FLORENTINO HERNADEZ MD, Location: [facility] Other External # FINAL DIAGNOSIS A. SKIN, [...] M.D. Electronically Signed Out By RIGO CHRISTIAN MD/[facility] By the signature on this report, the individual or group listed as making the Final Interpretation/Diagno sis certifies that they have reviewed this case. Diagnostic interpretation performed at D[facility]atopath Lab [id number], [facility] [address] Microscopic Description: A. Microscopic examination reveals a [...] lentigo stage I maligna type. Path #: [id number]. A1, B1, C1, D1, E1, F1, G1. Excision. ([facility]). Specimens Submitted As: A: SKIN, OCCIPITAL SCALP A1 B: SKIN, OCCIPITAL SCALP B1 C: SKIN, OCCIPITAL SCALP C1 D: SKIN, OCCIPITAL SCALP D1 E: SKIN, OCCIPITAL SCALP E1 F: SKIN, OCCIPITAL SCALP F1 G: SKIN, OCCIPITAL SCALP G1 DEBULK Gross Description: A: Received in formalin, labeled A1, is a camara, ellipsoid piece of skin measuring 20y1w2ee, oriented by the surgeon with yellow ink on one margin, orange ink on the opposite margin, and black ink marking the margin opposite the surgical margin. The specimen is embedded en face in toto in one block. B: Received in formalin, labeled B1, is a camara, ellipsoid piece of skin measuring 88v5x2qt, oriented by the surgeon with orange ink on one surgical margin, green ink on the opposite margin, black ink marking the margin opposite the surgical margin. The specimen is embedded en face in toto in one block. C: Received in formalin, labeled C1, is a camara, ellipsoid piece of skin measuring 06z4z2my, oriented by the surgeon with green ink on one margin, yellow ink on the opposite margin, and black ink marking the margin opposite the surgical margin. The specimen is embedded en face in toto in one block. D: Received in formalin, labeled D1, is a camara, ellipsoid piece of skin measuring 78p9v5nt, oriented by the surgeon with yellow ink on one margin, red ink on the opposite margin, and black ink marking the margin opposite the surgical margin. E: Received in formalin, labeled E1, is a camara, ellipsoid piece of skin measuring 46a2t6hl, oriented by the surgeon with red ink on one margin, blue ink on the opposite margin, and black ink marking the margin opposite the surgical margin. F: Received in formalin, labeled F1, is a camara, ellipsoid piece of skin measuring 06q8f4ve, oriented by the surgeon with blue ink on one margin, yellow ink on the opposite margin, and black ink marking the margin opposite the surgical margin. G: Received in formalin, labeled G1, (more content not included)... Normal [facility] Comment on above: Performed By: #### D #### Dermatopathology No Panel Informationon 06-[address] [address] DO Work Phone: PROTIMEon 05-08-2022 INR Coag (PPP) [Relative time] 2.06 {INR} Normal [facility] Comment on above: Performed By: #### P T #### [facility] [address] [place] [address] Dr. Sariah Boyle INR GUIDELINES SEE BELOW Normal [facility] Comment on above: Result Comment: NHUNG RED INR: 2.0 - 3.0 CONDITIONS NOT LISTED BELOW 2.5 - 3.5 FOR PROSTHETIC HEART VALVE REPLACEMENT 2.5 - 3.5 RECURRENT THROMBOSIS Performed By: #### P T #### [facility] [address] [place] [address] Dr. Sariah Boyle PT Coag (PPP) [Time] 21.2 s Critically high 9.0-11.6 [facility] Comment on above: Performed By: #### P T #### [facility] [address] [address] [address] Sariah Boyle PROTIMEon 04-07-2022 INR Coag (PPP) [Relative time] 3.37 {INR} Normal [facility] Comment on above: Performed By: #### P T #### [facility] [address] [address] [address] Sariah Boyle INR GUIDELINES SEE BELOW Normal [facility] Comment on above: Result Comment: NHUNG RED INR: 2.0 - 3.0 CONDITIONS NOT LISTED BELOW 2.5 - 3.5 FOR PROSTHETIC HEART VALVE REPLACEMENT 2.5 - 3.5 RECURRENT THROMBOSIS Performed By: #### P T #### [facility] [address] [place] [address] Dr. Sariah Boyle PT Coag (PPP) [Time] 33.6 s Critically high 9.0-11.6 [facility] Comment on above: Performed By: #### P T #### [facility] [address] [address] [address] Sariah Boyle Initial Visit (Otolaryngolog y)on [...] melanoma of the scalp History of Present Thfcfud51-ihiy-olj man referred by Dr. Hernadez for management [...] Recorded: 03Apr2022 02:27PM Height5 ft 9 in Rgzzyr787 lb BMI Zxwazjzeow16.92 kg/m2 BSA Calculated1.89 Tobacco Useb) No Falls [...] Apr 19 2022 6:13AM EST (Author) Normal Search to Phone Tobacco Screening.on 022 Fall risk assessment a) No falls within the last year [facility] Work Phone: Tobacco use status [facility] b) No [facility] Work Phone: Dermatopathologyon 2 Dermatopathology Name DONOVAN JACOME Pathologist: RIGO CHRISTIAN MD Date of Procedure: 03/23/2022 Date Received: 03/24/2022 Date Reported 03/27/2022 Submitting Physician: FLORENTINO HERNADEZ MD, Location: [facility] Copy To/Referring/Attendin g: GEORGE STOKES MD Other External # PHIL MORIN DO [...] Findings: Associated nevus: Dermal nevus ADDITIONAL TESTING Sports Nutritionist 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 Electronically Signed Out By RIGO CHRISTIAN MD/[facility] By the signature on this report, the individual or group listed as making the Final Interpretation/Diagno sis certifies that they have reviewed this case. Diagnostic interpretation performed at Dermatopath Lab [address] [place], [place] [id number], [facility] [address] Clinical History: Previously parietal biopsy. Narrow excisional biopsy today for confirmation of depth. ([place] office). Specimens Submitted As: A: SKIN, OCCIPITAL SCALP Gross Description: Received in formalin is one camara-brown, ellipsoid piece of skin measuring 22k91q5vi. The specimen is inked and embedded in toto in four blocks. The tips are in Block A1. dcp/03/25/2022 [facility] Dermatopathology Laboratory [address] [id number] [place] [address] Normal [facility] Comment on above: Performed By: #### D #### Dermatopathology No [facility]on 03-[facility] Work Phone: PROTIMEon 03-06-2022 INR Coag (PPP) [Relative time] 2.08 {INR} Normal [facility] Comment on above: Performed By: #### P T #### [facility] [address] [place] [address] Dr. Sariah Boyle INR GUIDELINES SEE BELOW Normal [facility] Comment on above: Result Comment: NHUNG RED INR: 2.0 - 3.0 CONDITIONS NOT LISTED BELOW 2.5 - 3.5 FOR PROSTHETIC HEART VALVE REPLACEMENT 2.5 - 3.5 RECURRENT THROMBOSIS Performed By: #### P T #### [facility] [address] [address] [address] Sariah Boyle PT Coag (PPP) [Time] 21.4 s Critically high 9.0-11.6 [facility] Comment on above: Performed By: #### P T #### [facility] [address] [address] [address] Sariah Boyle Dermatopathologyon Dermatopathology Name: VIANEY JACOME Pathologist: RIGO CHRISTIAN MD Date of Procedure: 02/16/2022 Date Received: 02/16/2022 Date Reported 02/21/2022 Submitting Physician: FLORENTINO HERNADEZ MD, Location: [facility] Copy To/Referring/Attendin g: MD GADIEL REEVES FINAL DIAGNOSIS 2 SLIDES, [facility] #[id number] (BX: 02/06/2022) SKIN, OCCIPITAL SCALP, SHAVE BIOPSY: [...] M.D. CANCER SUMMARY REPORT A. 2 SLIDES, [facility] #[id number] (BX: 02/06/2022): SPECIMEN Procedure: Biopsy, shave Specimen [...] FINDINGS Additional Findings: Dermal nevus ADDITIONAL TESTING Sports Nutritionist Blocks: Normal Block: None Tumor Block: A1 and A2 Electronically Signed Out By RIGO CHRISTIAN MD/[facility] Diagnostic interpretation performed at [facility] Dermatopath Lab [id number], [facility] [address] Clinical History: SHAVE/ 2.9 X 2.4CM BCC VS SCC VS MELANOMA VS OTHER Specimens Submitted As: A: 2 SLIDES, [facility] #[id number] (BX: 02/06/2022) Gross Description: Received for consultation from [facility] are two slides labeled [id number] (BX: 02/06/2022) along with the corresponding pathology report. Slide/Block Description 2 SLIDES, [id number]. Keep Slides: N Slides Returned: N Personal Consult: N Normal [facility] Comment on above: Performed By: #### D #### Dermatopathology PROTIMEon 02-03-2022 INR Coag (PPP) [Relative time] 1.83 {INR} Normal [facility] Comment on above: Performed By: #### P T #### [facility] [address] [address] [address] Sariah Boyle INR GUIDELINES SEE BELOW Normal [facility] Comment on above: Result Comment: NHUNG RED INR: 2.0 - 3.0 CONDITIONS NOT LISTED BELOW 2.5 - 3.5 FOR PROSTHETIC HEART VALVE REPLACEMENT 2.5 - 3.5 RECURRENT THROMBOSIS Performed By: #### P T #### [facility] [address] [address] [address] Sariah Boyle PT Coag (PPP) [Time] 19.0 s Critically high 9.0-11.6 [facility] Comment on above: Performed By: #### P T #### [facility] [address] [address] [address] Sariah Boyle PROTIMEon 01-02-2022 INR Coag (PPP) [Relative time] 2.05 {INR} Normal [facility] Comment on above: Performed By: #### P T #### [facility] [address] [address] [address] Sariah Boyle INR GUIDELINES SEE BELOW Normal [facility] Comment on above: Result Comment: NHUNG RED INR: 2.0 - 3.0 CONDITIONS NOT LISTED BELOW 2.5 - 3.5 FOR PROSTHETIC HEART VALVE REPLACEMENT 2.5 - 3.5 RECURRENT THROMBOSIS Performed By: #### P T #### [facility] [address] [place] [address] Dr. Sariah Boyle PT Coag (PPP) [Time] 21.1 s Critically high 9.0-11.6 [facility] Comment on above: Performed By: #### P T #### [facility] [address] [place] [address] Dr. Sariah Boyle Tobacco Screening.on 022 Adult depression screening assessment No [facility] 250 DO Work Phone: Fall risk assessment a) No falls within the last year [facility] 250 DO Work Phone: Tobacco use status [facility] b) No [facility] 250 DO Work Phone: PROTIMEon 12-02-2021 INR Coag (PPP) [Relative time] 2.22 {INR} Normal [facility] Comment on above: Performed By: #### P T #### [facility] [address] [place] [address] Dr. Sariah Boyle INR GUIDELINES SEE BELOW Normal [facility] Comment on above: Result Comment: NHUNG RED INR: 2.0 - 3.0 CONDITIONS NOT LISTED BELOW 2.5 - 3.5 FOR PROSTHETIC HEART VALVE REPLACEMENT 2.5 - 3.5 RECURRENT THROMBOSIS Performed By: #### P T #### [facility] [address] [place] [address] Dr. Sariah Boyle PT Coag (PPP) [Time] 22.8 s Critically high 9.0-11.6 [facility] Comment on above: Performed By: #### P T #### [facility] [address] [place] [address] Dr. Sariah Boyle PROTIMEon 11-18-2021 INR Coag (PPP) [Relative time] 1.95 {INR} Normal [facility] Comment on above: Performed By: #### P T #### [facility] [address] [place] [address] Dr. Sariah Boyle INR GUIDELINES SEE BELOW Normal [facility] Comment on above: Result Comment: NHUNG RED INR: 2.0 - 3.0 CONDITIONS NOT LISTED BELOW 2.5 - 3.5 FOR PROSTHETIC HEART VALVE REPLACEMENT 2.5 - 3.5 RECURRENT THROMBOSIS Performed By: #### P T #### [facility] [address] [address] [address] Sariah Boyle PT Coag (PPP) [Time] 20.2 s Critically high 9.0-11.6 [facility] Comment on above: Performed By: #### P T #### [facility] [address] [place] [address] Dr. Sariah Boyle COMPREHENSIVE METABOLIC PANE Don[place] 08-23-2021 Albumin [Mass/Vol] 4.1 g/dL Normal 3.6-5.1 [facility] Comment on above: Performed By: #### 1 0231, 7600 #### [facility] [place] [address] Casual Shoe Inspector: Jose Juan Arriola MD Albumin/Globulin [Mass ratio] 1.6 {ratio} Normal 1.0-2.5 [facility] Comment on above: Performed By: #### 1 0231, 7600 #### [facility] [place] [address] Casual Shoe Inspector: Jose Juan Arriola MD ALP [Catalytic activity/Vol] 61 U/L Normal 35-144 [facility] Comment on above: Performed By: #### 1 0231, 7600 #### [facility] [place] [address] Casual Shoe Inspector: Jose Juan Arriola MD ALT [Catalytic activity/Vol] 9 U/L Normal 9-46 [facility] Comment on above: Performed By: #### 1 0231, 7600 #### [facility] [place] [address] Casual Shoe Inspector: Jose Juan Arriola MD AST [Catalytic activity/Vol] 14 U/L Normal 10-35 [facility] Comment on above: Performed By: #### 1 0231, 7600 #### [facility] of [address], [address] [place] [address] Casual Shoe Inspector: Jose Juan Arriola MD Bilirubin [Mass/Vol] 0.6 mg/dL Normal 0.2-1.2 [facility] Comment on above: Performed By: #### 1 023, 7600 #### [facility] of [address], [address] [place] [address] Casual Shoe Inspector: Jose Juan Arriola MD Calcium [Mass/Vol] 9.1 mg/dL Normal 8.6-10.3 [facility] Comment on above: Performed By: #### 1 0231, 7600 #### [facility] [place] [address] Casual Shoe Inspector: Jose Juan Arriola MD Chloride [Moles/Vol] 109 mmol/L Normal 98-110 [facility] Comment on above: Performed By: #### 1 023, 7600 #### [facility] [place] [address] Casual Shoe Inspector: Jose Juan Arriola MD CO2 [Moles/Vol] 26 mmol/L Normal 20-32 [facility] Comment on above: Performed By: #### 1 023, 7600 #### [facility] [place] [address] Casual Shoe Inspector: Jose Juan Arriola MD Creatinine [Mass/Vol] 2.15 mg/dL High 0.70-1.[address] [facility] Comment on above: Result Comment: For patients >49 years of age, the reference limit for Creatinine is approximately 13% higher for people identified as -[place]. Performed By: #### 1 0231, 7600 #### [facility] [place] [address] Casual Shoe Inspector: Jose Juan Arriola MD eGFR NON-AFR. KYRGYZ 27 mL/min/1.73m2 Low > OR = 60 [facility] Comment on above: Performed By: #### 1 023, 7600 #### [facility] [place] [address] Casual Shoe Inspector: Jose Juan Arriola MD GFR/1.73 sq M.predicted among blacks MDRD (S/P/Bld) [Vol rate/Area] 31 mL/min/{1.73_m2} Low > OR = 60 [facility] Comment on above: Performed By: #### 1 023, 7600 #### [facility] of [address], [address] [place] [address] Casual Shoe Inspector: Jose Juan Arriola MD Globulin (S) [Mass/Vol] 2.5 g/dL Normal 1.9-3.7 [facility] Comment on above: Performed By: #### 1 023, 7600 #### [facility] [place] [address] Casual Shoe Inspector: Jose Juan Arriola MD Glucose [Mass/Vol] 93 mg/dL Normal 65-99 [facility] Comment on above: Result Comment: Fasting reference interval Performed By: #### 1 023, 7600 #### [facility] [place] [address] Casual Shoe Inspector: Jose Juan Arriola MD Potassium [Moles/Vol] 4.7 mmol/L Normal 3.5-5.[address] [facility] [address] [facility] Comment on above: Performed By: #### 1 023, 7600 #### [facility] [place] [address] Casual Shoe Inspector: Jose Juan Arriola MD Protein [Mass/Vol] 6.6 g/dL Normal 6.1-8.1 [facility] Comment on above: Performed By: #### 1 023, 7600 #### [facility] [place] [address] Casual Shoe Inspector: Jose Juan Arriola MD Sodium [Moles/Vol] 142 mmol/L Normal 135-146 [facility] Comment on above: Performed By: #### 1 0231, 7600 #### [facility] [address], [address] [place] [address] Casual Shoe Inspector: Jose Juan Arriola MD Urea nitrogen [Mass/Vol] 31 mg/dL High 7- [facility] Comment on above: Performed By: #### 1 0231, 7600 #### [facility] [address], [address] [place] [address] Casual Shoe Inspector: Jose Juan Arriola MD Urea nitrogen/Creatinine [Mass ratio] 14 mg/mg Normal 6- [facility] Comment on above: Performed By: #### 1 0231, 7600 #### [facility] [address], [address] [place] [address] Casual Shoe Inspector: Jose Juan Arriola MD LIPID PANEL, [facility] 0 Cholesterol [Mass/Vol] 101 mg/dL Normal <200 [facility] Comment on above: Order Comment: FASTI NG:YES FASTING: YES Performed By: #### 1 0231, 7600 #### [facility] [address], [address] [place] [address] Casual Shoe Inspector: Jose Juan Arriola MD Cholesterol in HDL [Mass/Vol] 40 mg/dL Normal > OR = 40 [facility] Comment on above: Order Comment: FASTI NG:YES FASTING: YES Performed By: #### 1 0231, 7600 #### [facility] [address], [address] [place] [address] Casual Shoe Inspector: Jose Juan Arriola MD Cholesterol in LDL [...] LDL-C. Phillip FITZGERALD et al. MERYL. 2013;310(19): 7767-3391 (http://education.SkillsTrak/faq/XAD822) Performed By: #### 1 0231, 7600 #### [facility] [address], [address] [place] [address] Casual Shoe Inspector: Jose Juan Arriola MD Cholesterol.total/Chol esterol in HDL [Mass ratio] 2.5 {ratio} Normal <5.0 [facility] Comment on above: Order Comment: FASTI NG:YES FASTING: YES Performed By: #### 1 0231, 7600 #### [facility] [address], [address] [place] [address] Casual Shoe Inspector: Jose Juan Arriola MD NON HDL CHOLESTEROL 61 mg/dL (calc) Normal <130 [facility] Comment on above: Order Comment: FASTI NG:YES FASTING: YES Result Comment: For patients with diabetes plus 1 major ASCVD risk factor, treating to a non-HDL-C goal of <100 mg/dL (LDL-C of <70 mg/dL) is considered a therapeutic option. Performed By: #### 1 0231, 7600 #### [facility] [address], [address] [place] [address] Casual Shoe Inspector: Jose Juan Arriola MD Triglyceride [Mass/Vol] 127 mg/dL Normal <150 [facility] Comment on above: Order Comment: FASTI NG:YES FASTING: YES Performed By: #### 1 0231, 7600 #### [facility] [address], [address] [place] [address] Casual Shoe Inspector: Jose Juan Arriola MD Tobacco Screening.on 021 Fall risk assessment a) No falls within the last year -[facility] DO Work Phone: Tobacco use status CP b) No -[facility] DO Work Phone: B TYPE NATRIURETIC PEPTIDE ( BNP)on 11-03-2020 B TYPE NATRIURETIC PEPTIDE (BNP) Normal [facility] Comment on above: Result Comment: FROZ EN EDTA PLASMA IS REQUIRED TEST NOT PERFORMED No suitable specimen received. Please review the test requirements at testdirectory.[employer] Performed By: #### 9 05, 22185, 62177, 6399, 718, 899, 622, 74103, 58527 #### [facility] [place] [address] Casual Shoe Inspector: Jose Juan Arriola MD CBC (INCLUDES DIFF/PLT)on Basophils (Bld) [#/Vol] 0.071 10*3/uL Normal 0-200 [facility] Comment on above: Performed By: #### 9 05, 74424, 29661, 6399, 718, 899, 622, 18874, 49319 #### [facility] [place] [address] Casual Shoe Inspector: Jose Juan Arriola MD Basophils/100 WBC (Bld) 1.0 % Normal [facility] Comment on above: Performed By: #### 9 05, 62070, 88730, 6399, 718, 899, 622, 14411, 21559 #### [facility] [place] [address] Casual Shoe Inspector: Jose Juan Arriola MD Eosinophils (Bld) [#/Vol] 0.099 10*3/uL Normal 15-500 [facility] Comment on above: Performed By: #### 9 05, 62415, 33404, 6399, 718, 899, 622, 51952, 56754 #### [facility] [place] [address] Casual Shoe Inspector: Jose Juan Arriola MD Eosinophils/100 WBC (Bld) 1.4 % Normal [facility] Comment on above: Performed By: #### 9 05, 49816, 78385, 6399, 718, 899, 622, 83518, 27153 #### [facility] [place] [address] Casual Shoe Inspector: Jose Juan Arriola MD Erythrocyte distribution width (RBC) [Ratio] 14.4 % Normal 11.0-15.0 [facility] Comment on above: Performed By: #### 9 05, 51888, 64891, 6399, 718, 899, 622, 09202, 38575 #### [facility] [place] [address] Casual Shoe Inspector: Jose Juan Arriola MD Hematocrit (Bld) [Volume fraction] 42.7 % Normal 38.5-50.0 [facility] Comment on above: Performed By: #### 9 05, 03685, 94938, 6399, 718, 899, 622, 38539, 57930 #### [facility] [place] [address] Casual Shoe Inspector: Jose Juan Arriola MD Hemoglobin (Bld) [Mass/Vol] 13.7 g/dL Normal 13.2-17.1 [facility] Comment on above: Performed By: #### 9 05, 22098, 30486, 6399, 718, 899, 622, 87414, 90407 #### [facility] [place] [address] Casual Shoe Inspector: Jose Juan Arriola MD Lymphocytes (Bld) [#/Vol] 1.512 10*3/uL Normal 850-3900 [facility] Comment on above: Performed By: #### 9 05, 03080, 18372, 6399, 718, 899, 622, 93956, 83017 #### [facility] [place] [address] Casual Shoe Inspector: Jose Juan Arriola MD Lymphocytes/100 WBC (Bld) 21.3 % Normal [facility] Comment on above: Performed By: #### 9 05, 23008, 95921, 6399, 718, 899, 622, 90807, 70031 #### [facility] [place] [address] Casual Shoe Inspector: Jose Juan Arriola MD MCH (RBC) [Entitic mass] 28.5 pg Normal 27.0-33.0 [facility] Comment on above: Performed By: #### 9 05, 14215, 88553, 6399, 718, 899, 622, 50910, 85763 #### [facility] [place] [address] Casual Shoe Inspector: Jose Juan Arriola MD MCHC (RBC) [Mass/Vol] 32.1 g/dL Normal 32.0-36.[address] [facility] Comment on above: Performed By: #### 9 05, 87101, 82542, 6399, 718, 899, 622, 68677, 99208 #### [facility] [place] [address] Casual Shoe Inspector: Jose Juan Arriola MD MCV (RBC) [Entitic vol] 89.0 fL Normal 80.0-100.0 [facility] Comment on above: Performed By: #### 9 05, 51384, 69902, 6399, 718, 899, 622, 73322, 70961 #### [facility] [place] [address] Casual Shoe Inspector: Jose Juan Arriola MD Monocytes (Bld) [#/Vol] 0.738 10*3/uL Normal 200-950 [facility] Comment on above: Performed By: #### 9 05, 88168, 13576, 6399, 718, 899, 622, 04997, 05642 #### [facility] [place] [address] Casual Shoe Inspector: Jose Juan Arriola MD Monocytes/100 WBC (Bld) 10.4 % Normal [facility] Comment on above: Performed By: #### 9 05, 02496, 84929, 6399, 718, 899, 622, 37199, 12186 #### [facility] [place] [address] Casual Shoe Inspector: Jose Juan Arriola MD Neutrophils (Bld) [#/Vol] 4.679 10*3/uL Normal 5123-3997 [facility] Comment on above: Performed By: #### 9 05, 86372, 23435, 6399, 718, 899, 622, 38408, 37786 #### [facility] [place] [address] Casual Shoe Inspector: Jose Juan Arriola MD Neutrophils/100 WBC (Bld) 65.9 % Normal [facility] Comment on above: Performed By: #### 9 05, 74788, 51929, 6399, 718, 899, 622, 96836, 72068 #### [facility] [place] [address] Casual Shoe Inspector: Jose Juan Arriola MD Platelet mean volume (Bld) [Entitic vol] 11.4 fL Normal 7.5-12.5 [facility] Comment on above: Performed By: #### 9 05, 86400, 05743, 6399, 718, 899, 622, 56921, 23221 #### [facility] [place] [address] Casual Shoe Inspector: Jose Juan Arriola MD Platelets (Bld) [#/Vol] 229 10*3/uL Normal 140-400 [facility] Comment on above: Performed By: #### 9 05, 28798, 99253, 6399, 718, 899, 622, 79626, 93222 #### [facility] [place] [address] Casual Shoe Inspector: Jose Juan Arriola MD RBC (Bld) [#/Vol] 4.80 10*6/uL Normal 4.20-5.80 [facility] Comment on above: Performed By: #### 9 05, 54313, 40608, 6399, 718, 899, 622, 46794, 21561 #### [facility] [place] [address] Casual Shoe Inspector: Jose Juan Arriola MD WBC (Bld) [#/Vol] 7.1 10*3/uL Normal 3.8-10.8 [facility] Comment on above: Performed By: #### 9 05, 21796, 85670, 6399, 718, 899, 622, 73501, 30934 #### [facility] [place] [address] Casual Shoe Inspector: Jose Juan Arriola MD [facility] 11-03-2020 Albumin [Mass/Vol] 4.1 g/dL Normal 3.6-5.1 [facility] Comment on above: Performed By: #### 9 05, 64910, 34778, 6399, 718, 899, 622, 43488, 89477 #### [facility] [place] [address] Casual Shoe Inspector: Jose Juan Arriola MD Albumin/Globulin [Mass ratio] 1.7 {ratio} Normal 1.0-2.5 [facility] Comment on above: Performed By: #### 9 05, 37240, 26851, 6399, 718, 899, 622, 61328, 18699 #### [facility] [place] [address] Casual Shoe Inspector: Jose Juan Arriola MD ALP [Catalytic activity/Vol] 62 U/L Normal 35-144 [facility] Comment on above: Performed By: #### 9 05, 33551, 58664, 6399, 718, 899, 622, 68736, 81204 #### [facility] [place] [address] Casual Shoe Inspector: Jose Juan Arriola MD ALT [Catalytic activity/Vol] 9 U/L Normal 9-46 [facility] Comment on above: Performed By: #### 9 05, 91092, 48511, 6399, 718, 899, 622, 05473, 20275 #### [facility] [place] [address] Casual Shoe Inspector: Jose Juan Arriola MD AST [Catalytic activity/Vol] 13 U/L Normal 10-35 [facility] Comment on above: Performed By: #### 9 05, 72803, 78434, 6399, 718, 899, 622, 13360, 36413 #### [place] [address] Casual Shoe Inspector: Jose Juan Arriola MD Bilirubin [Mass/Vol] 0.7 mg/dL Normal 0.2-1.2 [facility] Comment on above: Performed By: #### 9 05, 08032, 98807, 6399, 718, 899, 622, 75621, 03758 #### [facility] [place] [address] Casual Shoe Inspector: Jose Juan Arriola MD Calcium [Mass/Vol] 9.5 mg/dL Normal 8.6-10.3 [facility] Comment on above: Performed By: #### 9 05, 72243, 45465, 6399, 718, 899, 622, 31015, 66398 #### [facility] [place] [address] Casual Shoe Inspector: Jose Juan Arriola MD Chloride [Moles/Vol] 109 mmol/L Normal 98-110 [facility] Comment on above: Performed By: #### 9 05, 47718, 33365, 6399, 718, 899, 622, 60916, 48266 #### [facility] [place] [address] Casual Shoe Inspector: Jose Juan Arriola MD CO2 [Moles/Vol] 25 mmol/L Normal 20-32 [facility] Comment on above: Performed By: #### 9 05, 68726, 95833, 6399, 718, 899, 622, 37199, 39230 #### [facility] [place] [address] Casual Shoe Inspector: Jose Juan Arriola MD Creatinine [Mass/Vol] 1.99 mg/dL High 0.70-1.[address] [facility] [address] [facility] Comment on above: Result Comment: For patients >49 years of age, the reference limit for Creatinine is approximately 13% higher for people identified as -[place]. Performed By: #### 9 05, 95737, 18792, 6399, 718, 899, 622, 31353, 59437 #### [facility] [place] [address] Casual Shoe Inspector: Jose Juan Arriola MD eGFR NON-AFR. KYRGYZ 30 mL/min/1.73m2 Low > OR = 60 [facility] Comment on above: Performed By: #### 9 05, 86652, 55420, 6399, 718, 899, 622, 80983, 98710 #### [facility] [place] [address] Casual Shoe Inspector: Jose Juan Arriola MD GFR/1.73 sq M.predicted among blacks MDRD (S/P/Bld) [Vol rate/Area] 34 mL/min/{1.73_m2} Low > OR = 60 [facility] Comment on above: Performed By: #### 9 05, 53344, 95458, 6399, 718, 899, 622, 27900, 17766 #### [facility] [place] [address] Casual Shoe Inspector: Jose Juan Arriola MD Globulin (S) [Mass/Vol] 2.4 g/dL Normal 1.9-3.7 [facility] Comment on above: Performed By: #### 9 05, 92665, 74468, 6399, 718, 899, 622, 04516, 66911 #### [facility] [place] [address] Casual Shoe Inspector: Jose Juan Arriola MD Glucose [Mass/Vol] 144 mg/dL High 65-99 [facility] Comment on above: Result Comment: Fasting reference interval For someone without known diabetes, a glucose value >125 mg/dL indicates that they may have diabetes and this should be confirmed with a follow-up test. Performed By: #### 9 05, 76245, 02250, 6399, 718, 899, 622, 12881, 04170 #### [facility] [place] [address] Casual Shoe Inspector: Jose Juan Arriola MD Potassium [Moles/Vol] 4.9 mmol/L Normal 3.5-5.[address] [facility] Comment on above: Performed By: #### 9 05, 09542, 93619, 6399, 718, 899, 622, 31848, 45300 #### [facility] [place] [address] Casual Shoe Inspector: Jose Juan Arriola MD Protein [Mass/Vol] 6.5 g/dL Normal 6.1-8.1 [facility] Comment on above: Performed By: #### 9 05, 74730, 80329, 6399, 718, 899, 622, 54990, 78457 #### [facility] [place] [address] Casual Shoe Inspector: Jose Juan Arriola MD Sodium [Moles/Vol] 141 mmol/L Normal 135-146 [facility] Comment on above: Performed By: #### 9 05, 05272, 07408, 6399, 718, 899, 622, 94049, 64228 #### [facility] [place] [address] Casual Shoe Inspector: Jose Juan Arriola MD Urea nitrogen [Mass/Vol] 31 mg/dL High 7-25 [facility] Comment on above: Performed By: #### 9 05, 44154, 11147, 6399, 718, 899, 622, 13851, 54539 #### [facility] [place] [address] Casual Shoe Inspector: Jose Juan Arriola MD Urea nitrogen/Creatinine [Mass ratio] 16 mg/mg Normal 6-22 [facility] Comment on above: Performed By: #### 9 05, 27886, 14855, 6399, 718, 899, 622, 20327, 13321 #### [facility] [place] [address] Casual Shoe Inspector: Jose Juan Arriola MD MAGNESIUMon 11-03-2020 Magnesium [Mass/Vol] 2.1 mg/dL Normal 1.5-2.5 [facility] Comment on above: Performed By: #### 9 05, 80440, 10614, 6399, 718, 899, 622, 70064, 33551 #### [facility] [place] [address] Casual Shoe Inspector: Jose Juan Arriola MD PHOSPHATE ( PHOSPHORUS)on 11-03-2020 Phosphate [Mass/Vol] 2.9 mg/dL Normal 2.1-4.3 [facility] Comment on above: Performed By: #### 9 05, 43792, 77406, 6399, 718, 899, 622, 57198, 03784 #### [facility] [place] [address] Casual Shoe Inspector: Jose Juan Arriola MD PTH, INTACT WITHOUT [...] Normal High Performed By: #### 9 05, 21857, 15231, 6399, 718, 899, 622, 47319, 13481 #### [facility] [place] [address] Casual Shoe Inspector: Jose Juan Arriola MD TSHon 11-03-2020 TSH Qn 2.08 m[IU]/L Normal 0.40-4.50 [facility] Comment on above: Performed By: #### 9 05, 62478, 79627, 6399, 718, 899, 622, 40051, 84726 #### [facility] [place] [address] Casual Shoe Inspector: Jose Juan Arriola MD URIC ACIDon 11-03-2020 Urate [Mass/Vol] 8.5 mg/dL High 4.0-8.0 [facility] Comment on above: Result Comment: Ther apeutic target for gout patients: <6.0 mg/dL Performed By: #### 9 05, 78581, 05768, 6399, 718, 899, 622, 77918, 82149 #### [facility] [address], [address] [place] [id number] Casual Shoe Inspector: Jose Juan Arriola MD VITAMIN D,25-OH,TOTAL,IAon 0 [...] D, (D2,D3), LC/MS/MS is recommended: order code 07313 (patients >2yrs). See Note 1 Note 1 For additional information, please refer to http://education.SkillsTrak/faq/NGA577 (This link is being provided for informational/ educational purposes only.) Performed By: #### 1 4771, 4040 #### [facility] [address], [address] [place] [address] Casual Shoe Inspector: Jose Juan Arriola MD [facility] CARDIAC STRESS/REST INJE CTIONon 08-07-2019 [facility] CARDIAC STRESS/REST INJECTION Patient Name: DONOVAN JACOME STUDY: MYOCARDIAL PERFUSION STRESS TEST WITH LEXISCAN Performing facility: [facility], [address] [place] [address], [address], [place] [address] [facility] Provider: Melanie Langston MD, FACC PCP: Dr. Alden Morin Supervising provider: Edwige Jacobsen MD, FACC INDICATION: Arteriosclerotic cardiovascular disease Pre-operative risk assessment for Gallbladder scheduled at [facility] on TBA. HISTORY: Gender: M; Age: 83 y/o ; Height: 175.26 cm; Weight: 74.7623886 kg. High Cholesterol; CAD; HTN; ICD V. Tach., ICD Denies smoking. COMPARISON: Previous nuclear testing completed at [facility]. ACCESSION NUMBER(S): [id number]; [id number]; [id number] ORDERING CLINICIAN: RENETTA LANGSTON TECHNIQUE: ONE DAY [...] changes. Electronically signed by: EDWIGE JACOBSEN MD [facility] Reminderson 03-14-2019 Reminders - From: Qing Villegas MA To: EU - Clinical; Sent: 03/04/2019 11:29:06 EDT Show up: 03/14/2019 11:29:00 EDT Subject: Ambulatory Reminder Due Date/Time: 03/18/2019 11:29:00 EDT Reminder/Recall FISH/Cytology done 03/04/19 Negative. Normal Garcia [facility] Vital Signs Date Time Vital Sign Value Performing Clinician Facility 08-06-2023 10:10-0400 Body height 177.8 cm Formabilio DO Work Phone: [facility] 08-06-2023 10:10-0400 Body mass index (BMI) [Ratio] 23.69 kg/m2 [employer] [facility] 08-06-2023 10:10-0400 Body temperature 97.81 [degF] [employer] [facility] 08-06-2023 10:10-0400 Body weight 74.89 kg Formabilio DO [facility] 08-06-2023 10:10-0400 Diastolic blood pressure 60 mm[Hg] Formabilio DO [facility] 08-06-2023 10:10-0400 Heart rate 93 /min Formabilio DO [facility] 08-06-2023 10:10-0400 Respiratory rate 18 /min Formabilio DO [facility] 08-06-2023 10:10-0400 SaO2% (BldA) [Mass fraction] 97 % Formabilio DO [facility] 08-06-2023 10:10-0400 Systolic blood pressure 106 mm[Hg] Formabilio DO [facility] 05-29-2023 16:13-0500 Body height 177.8 cm Phil Furlong DO Work Phone: [facility] [employer] 05-29-2023 16:13-0500 Body mass index (BMI) [Ratio] 24.12 kg/m2 Phil Furlong DO Work Phone: [facility] [employer] 05-29-2023 16:13-0500 Body temperature 97.81 [degF] Phil Reynagalong DO Work Phone: [facility] [employer] 05-29-2023 16:13-0500 Body weight 76.25 kg Phil Reynagalong DO Work Phone: [facility] [employer] 05-29-2023 16:13-0500 Diastolic blood pressure 68 mm[Hg] Phil Reynagalong DO Work Phone: [facility] [employer] 05-29-2023 16:13-0500 Heart rate 104 /min Phil Nicoleng DO Work Phone: [facility] [employer] [facility] 05-29-2023 16:13-0500 SaO2% (BldA) [Mass fraction] 99 % Phil Nicoleng DO Work Phone: [facility] 05-29-2023 16:13-0500 Systolic blood pressure 128 mm[Hg] Phil Nicoleng DO Work Phone: [facility] 01-12-2023 14:17-0400 Body height 175.26 cm Phil Reynaga[employer] Work Phone: [facility] [employer] 250 DO Work Phone: 01-12-2023 14:17-0400 Body mass index (BMI) [Ratio] 23.78 kg/m2 Phil Reynagalong Work Phone: [facility] [employer] 250 DO Work Phone: 01-12-2023 14:17-0400 Body surface area Derived from formula 1.88 m2 Phil Reynagalong Work Phone: [facility] 250 DO Work Phone: 01-12-2023 14:17-0400 Body weight 73.03 kg Phil G Furlong Work Phone: [facility] 250 DO Work Phone: 01-12-2023 14:17-0400 Diastolic blood pressure 78 mm[Hg] Phil G Furlong Work Phone: [facility] 250 DO Work Phone: 01-12-2023 14:17-0400 Heart rate 72 /min Phil G Furlong Work Phone: [facility] 250 DO Work Phone: 01-12-2023 14:17-0400 Systolic blood pressure 122 mm[Hg] Phil G Furlong Work Phone: [facility] 250 DO Work Phone: 07-14-2022 15:41-0500 Body height 175.26 cm Phil G Furlong Work Phone: [facility] 250 DO Work Phone: 07-14-2022 15:41-0500 Body mass index (BMI) [Ratio] 23.92 kg/m2 Phil G Furlong Work Phone: [facility] 250 DO Work Phone: 07-14-2022 15:41-0500 Body surface area Derived from formula 1.89 m2 Phil G Furlong Work Phone: [facility] 250 DO Work Phone: 07-14-2022 15:41-0500 Body weight 73.48 kg Phil G Furlong Work Phone: [facility] DO Work Phone: 07-14-2022 15:41-0500 Diastolic blood pressure 80 mm[Hg] Phil Reynagalong Work Phone: [facility] 250 DO Work Phone: 07-14-2022 15:41-0500 Heart rate 80 /min Phil Nicoleng Work Phone: [facility] 250 DO Work Phone: 07-14-2022 15:41-0500 Systolic blood pressure 130 mm[Hg] Phil Reynagalong Work Phone: [facility] DO Work Phone: 06-15-2022 12:40-0500 Diastolic blood pressure 78 mm[Hg] Fl[facility]ino [facility] 06-15-2022 12:40-0500 Systolic blood pressure 167 mm[Hg] lForentino Hernadez [facility] 06-06-2022 08:07-0500 Diastolic blood pressure 85 mm[Hg] Florentino Hernadez [facility] 06-06-2022 08:07-0500 Systolic blood pressure 150 mm[Hg] Florentino Hernade[facility] 04-03-2022 14:27-0500 Body height 175.26 cm Phil Nicoleng Work Phone: [facility] [place] Work Phone: 04-03-2022 14:27-0500 Body mass index (BMI) [Ratio] 23.92 kg/m2 Phil Reynagalong Work Phone: [facility] [place] Work Phone: 04-03-2022 14:27-0500 Body surface area Derived from formula 1.89 m2 Phil Reynagalong Work Phone: [facility] [place] Work Phone: 04-03-2022 14:27-0500 Body weight 73.48 kg Phil Soliz Furlong Work Phone: [facility] [place] Work Phone: 03-23-2022 09:29-0400 Diastolic blood pressure 89 mm[Hg] Karlie Craig [facility] 03-23-2022 09:29-0400 Systolic blood pressure 160 mm[Hg] Karlie Craig [facility] 03-23-2022 08:29-0400 Diastolic blood pressure 89 mm[Hg] Florentino Hernadez [facility] 03-23-2022 08:29-0400 Systolic blood pressure 160 mm[Hg] Florentino Hernadez [facility] 12-13-2021 08:48-0400 Body height 175.26 cm Phil Soliz Furlong Work Phone: [facility] [employer] 250 DO Work Phone: 12-13-2021 08:48-0400 Body mass index (BMI) [Ratio] 23.63 kg/m2 Phil Soliz Furlong Work Phone: [facility] [employer] 250 DO Work Phone: 12-13-2021 08:48-0400 Body surface area Derived from formula 1.88 m2 Phil G Furlong Work Phone: [facility] 250 DO Work Phone: 12-13-2021 08:48-0400 Body weight 72.58 kg Phil G Furlong Work Phone: [facility] [employer] 250 DO Work Phone: 12-13-2021 08:48-0400 Diastolic blood pressure 80 mm[Hg] Phil G Furlong Work Phone: [facility] DO Work Phone: 12-13-2021 08:48-0400 Heart rate 80 /min Phil G Furlong Work Phone: [facility] 250 DO Work Phone: 12-13-2021 08:48-0400 Systolic blood pressure 128 mm[Hg] Phil G Furlong Work Phone: [facility] DO Work Phone: 05-02-2021 08:27-0500 Body height 175.26 cm Phil G Furlong Work Phone: [facility] DO Work Phone: 05-02-2021 08:27-0500 Body mass index (BMI) [Ratio] 24.37 kg/m2 Phil G Furlong Work Phone: [facility] DO Work Phone: 05-02-2021 08:27-0500 Body surface area Derived from formula 1.9 m2 Phil G Furlong Work Phone: [facility] 250 DO Work Phone: 05-02-2021 08:27-0500 Body weight 74.84 kg Phil G Furlong Work Phone: [facility] 250 DO Work Phone: 05-02-2021 08:27-0500 Diastolic blood pressure 76 mm[Hg] Phil G Furlong Work Phone: [facility] 250 DO Work Phone: 05-02-2021 08:27-0500 Heart rate 81 /min Phil G Furlong Work Phone: [facility] DO Work Phone: 05-02-2021 08:27-0500 Systolic blood pressure 137 mm[Hg] Phil Morin Work Phone: [facility] 250 DO Work Phone: 1935 23:00-0500 >na< Karlie Craig Dept. of Dermato logy Encounters Encounter Date Encounter Type Care Provider Facility Start: 08-23-2023 Orders Only Phil pool DO Work Phone: [facility] Start: 08-09-2023 Orders Only Phil pool DO Work Phone: [facility] Comment on above: Type 2 diabetes gamaliel itus without complication, without long- term current use of insulin ([facility]) (Primary Dx); Hypertensive 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 ([facility]) Start: 08-06-2023 End: 08-07-2023 ambulatory [facility] Start: 08-06-2023 End: 08-06-2023 ambulatory [facility] Start: 08-06-2023 End: 08-06-2023 Office outpatient visit 25 minutes Phil Morin DO Work Phone: [facility] Comment on above: Hypertensive heart a nd renal disease with (congestive) heart failure ([facility]) (Primary Dx); Hyperlipidemia, unspecified hyperlipidemia type; Stage 4 chronic kidney disease ([facility]); Type 2 diabetes mellitus without complication, without long-term current use of insulin ([facility]); Hyperparathyroidism ([facility]); Malignant melanoma of scalp or neck ([facility]); Longstanding persistent atrial fibrillation ([facility]); Paroxysmal atrial fibrillation ([facility]); Microalbuminuric diabetic nephropathy ([facility]) Start: 07-18-2023 Orders Only Phil pool DO Work Phone: [facility] Comment on above: Longstanding persist ent atrial fibrillation ([facility]) (Primary Dx) Start: 06-28-2023 End: 06-28-2023 ambulatory Renetta Langston Facility:[facility] Start: 06-28-2023 End: 06-28-2023 ambulatory DO Phil Furlong Work Phone: [facility] Work Phone: Start: 06-28-2023 End: 06-28-2023 Patient encounter procedure DO Phil Furlong Work Phone: [facility] Start: 05-29-2023 End: 05-29-2023 ambulatory PHIL G [facility] Start: 05-29-2023 End: 05-29-2023 Office outpatient visit 25 minutes Philgirish Reynagalong DO Work Phone: [facility] Comment on above: Paroxysmal atrial fi brillation ([facility]) (Primary Dx); Hypertensive 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 ([facility]); Essential hypertension; Hypothyroidism, unspecified type; Type 2 diabetes mellitus without complication, without long-term current use of insulin ([facility]); Arteriosclerotic vascular disease Start: 03-20-2023 End: 03-20-2023 ambulatory Phil Nicoleng Facility:[facility] Start: 03-20-2023 End: 03-20-2023 ambulatory DO Phil Furlong Work Phone: [facility] Work Phone: Start: 03-20-2023 End: 03-20-2023 Patient encounter procedure DO Phil Furlong Work Phone: [facility] Start: 01-12-2023 Office outpatient vi sit 25 minutes Phil G Furlong Work Phone: [facility] 250 DO Work Phone: Start: 01-12-2023 Patient encounter procedure Phil G Furlong Work Phone: [facility] 250 DO Work Phone: Start: 01-12-[address] Renetta Langston II Facility: Start: 12-04-2022 End: 12-04-[address] Phil Morin Facility:90 Start: 10-17-2022 End: 10-18-[address] JARON DAVALOS Facility:H1 Start: 09-15-2022 End: 09-16-[address] JARON DAVALOS Facility:H1 Start: 08-28-2022 End: 08-28-[address] Phil Morin Facility:[id number] Start: 08-28-2022 End: 08-28-2022 ambulatory DO Phil Ronnellbret Work Phone: [facility] Work Phone: Start: 08-28-2022 End: 08-28-2022 Patient encounter procedure DO Phil Reynagadestinyyrn Work Phone: [facility] Start: 08-15-2022 End: 08-16-[address] JARON DAVALOS Facility:H1 Start: 07-18-2022 End: 07-19-[address] JARON DAVALOS Facility:H1 Start: 07-14-2022 Office outpatient vi sit 25 minutes Phil Morin Work Phone: [facility] 250 DO Work Phone: Start: 07-14-[address] Phil Morin Facility: Start: 07-04-2022 End: 07-05-[address] AJRON DAVALOS Facility:H1 Start: 07-03-2022 Karlie Craig Dept. of D ermatology Start: 06-16-2022 Gadiel Estevez Dept. of Dermatology Start: 06-16-2022 Telephone encounter Phil duron Work Phone: [facility] 250 DO Work Phone: Start: 06-15-2022 Florentino Hernadez Dept. of Dermatology Start: 06-15-[address] Phil Morin Facility:[id number] Start: 06-15-[address] Phil Morin Facility:[id number] Start: 06-09-2022 Rx Renewal Phil Nicole ng Work Phone: [facility] 250 DO Work Phone: Start: 06-07-2022 End: 06-08-[address] PHIL MORIN Facility:H1 Start: 06-07-2022 Florentino Hernadez Dept. of Dermatology Start: 06-06-2022 ambulatory Florentino Hernadez Facility: [id number] Start: 06-06-2022 ambulatory Florentino Hernadez Facility: 9522 Start: 05-17-[address] Phil Morin Facility:[id number] Start: 05-17-2022 End: 05-17-2022 ambulatory DO Phil Morin Work Phone: [facility] Work Phone: Start: 05-17-2022 End: 05-17-2022 Patient encounter procedure DO Phil Morin Work Phone: [facility] Start: 05-08-2022 End: 05-09-[address] PHIL MORIN Facility:H1 Start: 05-01-2022 Rx Renewal Pihl Nicole ng Work Phone: [facility] 250 DO Work Phone: Start: 04-07-2022 End: 04-08-[address] PHIL MORIN Facility:H1 Start: 04-04-2022 Karlie Craig Dept. of D ermatology Start: 04-03-2022 Office outpatient ne w 45 minutes Phil Morin Work Phone: [facility] Work Phone: Start: 04-03-2022 Patient encounter procedure Phil Morin Work Phone: [facility] Work Phone: Start: 04-03-[address] Ketan Iyer Facility: Start: 03-23-2022 Florentino Hernadez Dept. of Dermatology Start: 03-23-2022 ambulatory Florentino Hernadez Facility: [id number] Start: 03-23-2022 ambulatory Florentino Hernadez Facility: [id number] Start: 03-06-2022 End: 03-07-[address] PHIL MORIN Facility:H1 Start: 02-28-2022 Karlie Craig Dept. of D ermatology Start: 02-16-2022 ambulatory Florentino Hernadez Facility: [id number] Start: 02-15-[address] Phil Morin Facility:90 Start: 02-15-2022 End: 02-15-2022 ambulatory DO Phil Nicoleng Work Phone: [facility] Work Phone: Start: 02-15-2022 End: 02-15-2022 Patient encounter procedure DO Phil Morin Work Phone: [facility] Start: 02-03-2022 End: 02-04-[address] PHIL MORIN Facility:H1 Start: 01-02-2022 End: 01-03-[address] PHIL MORIN Facility:H1 Start: 12-13-2021 Office outpatient vi sit 25 minutes Phil Morin Work Phone: [facility] 250 DO Work Phone: Start: 12-02-2021 End: 12-16-[address] PHIL MORIN Facility:H1 Start: 11-18-2021 End: 11-19-[address] PHIL MORIN Facility: Start: 05-02-2021 Office outpatient vi sit 25 minutes Phil Soliz Ronnelldestinyyrn Work Phone: [facility] 250 DO Work Phone: Procedures Date Procedure Procedure Detail Performing Clinician Start: 08-06-2023 Adult depression scr eening assessment Phil Morin DO Work Phone: Start: 05-29-2023 Adult depression scr eening assessment Phil Morin DO Work Phone: Start: 06-15-2022 Excision malignant l esion s/n/h/f/g 2.1-3.0 cm Florentino Hernadez Start: 06-06-2022 Excision malignant: Scalp/Neck/Hands/Feet/Genit adam - 4.0cm [id number] Florentino Hernadez Start: 06-06-2022 Excision malignant: Scalp/Neck/Hands/Feet/Genit adam - 4.0cm [id number] Florentino Hernadez Start: 03-23-2022 End: 03-23-2022 Exc b9 lesion mrgn xcp sk tg t/a/l 3.1-4.0 cm Florentino Hernadez Start: 02-28-2022 Karlie Dari amaya Brain Surgery Phil Martínez Nicole ng Work Phone: Cataract surgery Phil Martínez Card rlong Work Phone: History Of Prior Surgery Brayan stout Martínez Morin Work Phone: Total colonoscopy Phil Soliz F urlong Work Phone: Transurethral resect ion of bladder neoplasm Phil Martínez Morin Work Phone: Plan of Treatment Date Care Activity Detail Author Start: 08-11-2027 DTaP,Tdap and Td Vaccines (2 - Td or Tdap) DTaP,Tdap and Td Vaccines (2 - Td or Tdap) [facility] Start: 08-05-2024 Administration of varicella zoster vaccine Zoster (Shingles) Vaccine (1 of 2) [facility] Comment on above: Postponed from 09/24 (Patient Refused) Start: 08-05-2024 Adult BMI Screening Adult BMI Screen ing [facility] Start: 08-05-2024 Depression Screening Depression Scre ening [facility] Start: 08-05-2024 Tobacco Screening Tobacco Screening [facility] Start: 05-29-2024 Adult BMI Screening Adult BMI Screen ing [facility] Start: 05-29-2024 Depression Screening Depression Scre ening [facility] Start: 05-29-2024 Fall Risk Screening Fall Risk Screen ing [facility] Start: 05-29-2024 Tobacco Screening Tobacco Screening [facility] Start: 02-06-2024 End: 02-06-2024 Patient encounter procedure 02/06/2024 9:00 AM EDT Office Visit [facility] [address] [place] [address] Phil Morin, DO [address], [place] [address] [facility] Start: 01-20-2024 Influenza vaccination Influenza Vacc ine [facility] Start: 10-16-2023 FUV, Provider: Renetta Langston, Status: Pen, Time: 9:00 AM FUV, Provider: Renetta Langston, Status: Pen, Time: 9:00 AM [place] [address] DO Work Phone: Start: 08-06-2023 End: 08-06-2023 Patient encounter procedure 08/06/2023 10:10 AM EDT Office Visit [facility] [address] [place] [address] Phil Morin, DO [address], [place] [address] [facility] Start: 07-30-2023 End: 07-30-2023 Patient encounter procedure 07/30/2023 10:20 AM EDT Office Visit [facility] Internal [facility] - Family Medicine [address] [place] [address] PatienceBrayanPhil Martínez, DO [address], [place] [address] [facility] - Family Medicine Start: 01-19-2023 COVID-19 Vaccine ( season) COVID-19 Vaccine () [facility] Start: 01-12-2023 FUV, Provider: Renetta Langston, Status: Pen, Time: 2:10 PM FUV, Provider: Renetta Langston, Status: Pen, Time: 2:10 PM [facility] Work Phone: Start: 07-14-2022 FUV, Provider: Renetta Langston, Status: Pen, Time: 3:10 PM FUV, Provider: Renetta Langston, Status: Pen, Time: 3:10 PM [id number] Work Phone: Start: 06-27-2022 FUV, Provider: Edwige Jacobsen, Status: Pen, Time: 9:10 AM FUV, Provider: Edwige Jacobsen, Status: Pen, [facility]: 9:10 AM [facility] Work [facility]: Start: 12-13-2021 FUV, Provider: Renetta Langston, Status: Pen, Time: 8:50 AM FUV, Provider: Renetta Langston, Status: Pen, Time: 8:50 AM [facility] Work Phone: Start: 09-25-2015 Administration of varicella zoster vaccine Zoster (Shingles) Vaccine (1 of 2) [facility] Start: 1935 Medicare Annual Well ness Visit Medicare Annual Wellness Visit [facility] End: 05-29-2024 Comprehensive metabolic 2000 panel - Serum or Plasma Comprehensive metabolic panel Lab Routine Hypertensive 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 ([facility]) 1 Occurrences starting 05/29/2023 until 05/29/2024 [facility] Comment on above: 1 Occurrences starti ng 05/29/2023 until 05/29/2024 End: 05-29-2024 Hemoglobin A1c/Hemoglobin.total in Blood Hemoglobin A1c Lab Routine Type 2 diabetes mellitus without complication, without long-term current use of insulin ([facility]) 1 Occurrences starting 05/29/2023 until 05/29/2024 [employer] Comment on above: 1 Occurrences starti ng 05/29/2023 until 05/29/2024 End: 05-29-2024 Lipid panel Lipid panel Lab Routine Arteriosclerotic vascular disease 1 Occurrences starting 05/29/2023 until 05/29/2024 [employer] Comment on above: 1 Occurrences starti ng 05/29/2023 until 05/29/2024 End: 05-29-2024 Protime & INR Protime & INR Lab Routine Paroxysmal atrial fibrillation ([facility]) 1 Occurrences starting 05/29/2023 until 05/29/2024 [facility] Work Phone: Comment on above: 1 Occurrences starti ng 05/29/2023 until 05/29/2024 End: 05-29-2024 Thyrotropin [Units/volume] in Serum or Plasma TSH Lab Routine Hypothyroidism, unspecified type 1 Occurrences starting 05/29/2023 until 05/29/2024 [facility] Comment on above: 1 Occurrences starti ng 05/29/2023 until 05/29/2024 Immunizations Immunization Date Immunization Notes Care Provider Fa [facility] 03-30-2023 Influenza, High-dose , Quadrivalent [facility] Morin DO [facility] 03-30-2023 influenza virus vacc ine, unspecified formulation Phil Morin DO Work Phone: [facility] 02-16-2022 Fluzone High-Dose Quadrivalent 0.7 ML Intramuscular Suspension Prefilled Syringe Phil Morin Work Phone: [place] [address] DO Work Phone: 01-28-2021 Fluad Quadrivalent 0 .5 ML Intramuscular Prefilled Syringe Phil Nicoleng Work Phone: [place] [address] DO Work Phone: 07-14-2020 Pfizer-BioNTech COVI D-19 Vacc 30 MCG/0.3ML Intramuscular Suspension Phil Nicoleng Work Phone: [place] [address] DO Work Phone: 07-01-2020 Pfizer-BioNTech COVI D-19 Vacc 30 MCG/0.3ML Intramuscular Suspension Phil Morin Work Phone: [facility] 06-16-2020 COVID-19, mRNA, LNP- S, PF, 30mcg/0.3mL Dose Phil Morin DO Work Phone: [facility] 06-11-2020 Pfizer-BioNTech COVI D-19 Vacc 30 MCG/0.3ML Intramuscular Suspension Phil Morin Work Phone: [place] [address] DO Work Phone: 04-05-2020 pneumococcal polysaccharide vaccine, 23 valent Phil Reynagayrn Work Phone: [place] [address] DO Work Phone: 02-23-2020 Fluad Quadrivalent 0 .5 ML Intramuscular Prefilled Syringe Phil Morin Work Phone: [place] [address] DO Work Phone: 02-19-2020 influenza, seasonal, injectable Phil Nicoleng Work Phone: [place] [address] DO Work Phone: 07-20-2019 pneumococcal conjuga te vaccine, 13 valent Phil Reynagalong Work Phone: [place] [address] DO Work Phone: 03-12-2019 pneumococcal conjuga te vaccine, 13 valent Phil Reynagalong Work Phone: [place] [address] DO Work Phone: 03-12-2019 Seasonal trivalent influenza vaccine, adjuvanted, preservative free Phil Soliz [place] Work Phone: [place] [address] DO Work Phone: 02-18-2019 influenza virus vacc ine, unspecified formulation Phil Soliz [place] Work Phone: [place] [address] DO Work Phone: 03-04-2018 influenza virus vacc ine, unspecified formulation Phil Soliz [place] Work Phone: [place] [address] DO Work Phone: 08-10-2017 tetanus toxoid, redu edwin diphtheria toxoid, and acellular pertussis vaccine, adsorbed Phil G [place] Work Phone: [place] [address] DO Work Phone: 03-21-2017 influenza virus vacc ine, unspecified formulation Phil Soliz [place] Work Phone: [place] [address] DO Work Phone: 03-13-2017 influenza, seasonal, injectable [facility] Work [facility]: [place] [address] DO Work Phone: 02-21-2016 influenza, seasonal, injectable, preservative free Phil Reynagalong Work Phone: [place] [address] DO Work Phone: 02-19-2016 influenza virus vacc ine, unspecified formulation Phil Nicoleng Work Phone: [place] [address] DO Work Phone: 07-31-2015 zoster vaccine, live Phil Reynagalong Work Phone: [facility] 250 DO Work Phone: 07-31-2015 zoster vaccine, unspecified formulation Phil Morin DO Work Phone: [facility] 02-18-2015 influenza virus vacc ine, unspecified formulation Phil Reynagalong Work Phone: [place] [address] DO Work Phone: 02-17-2015 influenza, seasonal, injectable, preservative free Phil Morin DO Work Phone: [facility] 05-11-2014 pneumococcal polysaccharide vaccine, 23 valent Phil Reynagalong Work Phone: [place] [address] DO Work Phone: 02-18-2014 influenza virus vacc ine, unspecified formulation Phil Nicoleng Work Phone: [place] [address] DO Work Phone: 04-03-2013 pneumococcal conjuga te vaccine, 13 valent Phil Reynagalong Work Phone: [place] [address] DO Work Phone: 02-18-2013 influenza virus vacc ine, unspecified formulation Phil Reynagalong Work Phone: [place] [address] DO Work Phone: 02-18-2013 pneumococcal polysaccharide vaccine, 23 valent Phil Soliz [place] Work Phone: [facility] 250 DO Work Phone: 12-20-2011 influenza virus vacc ine, unspecified formulation Phil Reynagalong Work Phone: [facility] 250 DO Work Phone: 05-21-2010 influenza virus vacc ine, unspecified formulation Phil Soliz Furlong Work Phone: [facility] 250 DO Work Phone: 05-21-2009 influenza virus vacc ine, unspecified formulation Phil Soliz Furlong Work Phone: [facility] 250 DO Work Phone: 05-21-2008 influenza virus vacc ine, unspecified formulation Phil Soliz Furlong Work Phone: [facility] 250 DO Work Phone: 05-21-2007 pneumococcal polysaccharide vaccine, 23 valent Phil Soliz Furlong Work Phone: [facility] 250 DO Work Phone: 03-28-2002 pneumococcal polysaccharide vaccine, 23 valent Phil Soliz Furlong Work Phone: [facility] 250 DO Work Phone: 03-21-2002 pneumococcal polysaccharide vaccine, 23 valent Phil Reynagalong DO Work Phone: [facility] 1935 pneumococcal conjuga te vaccine, 7 valent Karlie Craig Dept. of Dermatology Payers Date Payer Category Payer Medicare [employer] MEDICARE UHC MEDICARE ADVANTAGE PPO [id number] 2022-Present [phone] [address] [address] [place] [address] [id number] 2022 Self-pay [id number] 1959 Private Health Insurance [id number] 1959 Private Health Insurance [id number] 1934 Unknown [id number] 2.16.840.1.493651.3.579. 2.593 1934 Unknown [id number] 2.16.840.1.998059.3.579. 2.593 1934 Unknown [id number] 2.16.840.1.458517.3.579. 2.593 1934 Unknown [id number] 2.16.840.1.461058.3.579. 2.593 1934 Unknown [id number] 2.16.840.1.252559.3.579. 2.593 1934 Unknown [id number] 2.16.840.1.975880.3.579. 2.593 1934 Unknown [id number] 2.16.840.1.287544.3.579. 2.593 1934 Unknown [id number] 2.16.840.1.108684.3.579. 2.593 1934 Unknown [id number] 2.16.840.1.624950.3.579. 2.593 1934 Unknown [id number] 2.16.840.1.128046.3.579. 2.593 1934 Unknown [id number] 2.16.840.1.879321.3.579. 2.593 1934 Unknown [id number] 2.16.840.1.318762.3.579. 2.593 1934 Unknown [id number] 2.16.840.1.966991.3.579. 2.593 1934 Unknown [id number] 2.16.840.1.323302.3.579. 2.356 1934 Unknown [id number] 2.16.840.1.385832.3.579. 2.356 1934 Unknown [id number] 2.16.840.1.249418.3.579. 2.356 1934 Unknown [id number] 2.16.840.1.358666.3.579. 2.356 1934 Unknown [id number] 2.16.840.1.281086.3.579. 2.356 1934 Unknown [id number] 2.16.840.1.446690.3.579. 2.356 1934 Unknown [id number] 2.16.840.1.598622.3.579. 2.356 1934 Unknown [id number] 2.16.840.1.072574.3.579. 2.356 1934 Unknown [id number] 2.16.840.1.642817.3.579. 2.356 1934 Unknown [id number] 2.16.840.1.828831.3.579. 2.356 1934 Unknown [id number] 2.16.840.1.677750.3.579. 2.356 1934 Unknown [id number] 2.16840.1.413186.3.579. 2.356 1934 Unknown [id number] 2.16.840.1.211870.3.579. 2.356 1934 Unknown [id number] 2.16.840.1.768208.3.579. 2.356 1934 Unknown [id number] 2.16.840.1.016667.3.579. 2.1286 1934 Unknown [id number] 2.16.840.1.704982.3.579. 2.1286 1934 Unknown [id number] 2.16.840.1.090217.3.579. 2.1286 Medicare Medicare [id number] Medicare Medicare [id number] Unknown Unknown [place] BC/BS [id number] Unknown [id number] 2.16.840.1.974958.3.579. 2.531 Unknown [id number] 2.16.840.1.471604.3.579. 2.531 Unknown [id number] 2.16.840.1.717392.3.579. 2.531 Unknown [id number] 2.16.840.1.958131.3.579. 2.531 Social History Date Type Detail Facility Start: 09-19-2022 End: 05-29-2023 No alcohol use No alcohol use [facility] 250 DO Work Phone: Comment on above: 2 cups coffee daily; Start: 07-19-2019 End: 03-31-2022 Tobacco smoking status NHIS Never smoked tobacco (finding) [facility] Start: 1935 End: 1935 Sex Assigned At Male [facility] Start: 02-28-2022 Dept. of D ermatology Start: 03-31-2022 Tobacco use and exposure Smokeless tobacco non-user [facility] Start: 05-29-2023 End: 08-06-2023 Alcohol intake Ex-drinker (finding) [facility] Start: 09-19-2022 End: 05-29-2023 [facility] Has the electricVionic, [employer], or water [employer] threatened to shut off services in your home in past 12Mo No [facility] Are you now , , , , never or living with a partner? [facility] How often to you hav e a drink containing alcohol? Never [facility] How many standard drinks containing alcohol do you have on a typical day? Patient does not drink [facility] Do you feel stress - tense, restless, nervous, or anxious, or unable to sleep at night because your mind is troubled all the time - these days [OSQ] Not at all [facility] Start: 1935 Sex Assigned At Not on file P [facility] Goals Date Patient Goal Desired Activity /State Clinical Notes 05-29-2023 to 08-06-2023 Phil Soliz Patience, DO - 08/06/2023 10:10 AM EDTPhil Martínez Patience, DO - 05/29/2023 4:20 PM EST Note Date & Type Note Facility 08-06-2023 History of Present illness Narrative Subjective Patient ID: Donovan Jacome is a 87 y.o. male. Mr. Jacome presents for his CV recheck. He is taking his medications. He has not having any side effects. He has no new problems to report. He has not been back to see the specialist. They wanted to do more surgery but he refused. He still has chronic neck pain although it has not as bad as it was. Sometimes the pain comes up the top of his head and to the front of his head. He stopped taking the tizanidine. He did not think it was helping much. The following portions of the patient's history were reviewed and updated as appropriate: allergies, current medications, past family history, past medical history, past social history, past surgical history, problem list, and medication reconciliation was completed including current medication and post discharge medication. Review of Systems Constitutional: Negative. HENT: Negative. Eyes: Negative. Respiratory: Negative. Cardiovascular: Negative. Gastrointestinal: Negative. Musculoskeletal: Positive for neck pain. Skin: Negative. Neurological: Positive for headaches. Hematological: Negative. Psychiatric/Behavioral: Negative. Objective Physical Exam Constitutional: General: He is not in acute distress. Appearance: He is normal weight. He is not ill-appearing. Cardiovascular: Rate and Rhythm: Normal rate and regular rhythm. Pulses: Normal pulses. Heart sounds: Normal heart sounds. No murmur heard. Pulmonary: Effort: Pulmonary effort is normal. No respiratory distress. Breath sounds: Normal breath sounds. No wheezing, rhonchi or rales. Lymphadenopathy: Cervical: No cervical adenopathy. Neurological: General: No focal deficit present. Mental Status: He is alert and oriented to person, place, and time. Cranial Nerves: Cranial nerves 2-12 are intact. Psychiatric: Attention and Perception: Attention normal. Mood and Affect: Mood normal. Speech: Speech normal. Behavior: Behavior normal. Behavior is cooperative. Thought Content: Thought content normal. Cognition and Memory: Cognition normal. Judgment: Judgment normal. Assessment/Plan Donovan was seen today for hypertension and hyperlipidemia. Diagnoses and all orders for this visit: Hypertensive 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 ([facility]) - TSH; Future - Comprehensive metabolic panel; Future Blood pressure at goal. Continue current regimen. Check CMP and TSH. Hyperlipidemia, unspecified hyperlipidemia type - Lipid panel; Future Check lipid panel Stage 4 chronic kidney disease ([facility]) TSH; Future Check TSH and CMP. Type 2 diabetes mellitus without complication, without long-term current use of insulin ([facility]) - Hemoglobin A1c; Future - TSH; Future Check A1c. Hyperparathyroidism ([facility]) Check kidney function test. Malignant melanoma of scalp or neck ([facility]) He does not want to go back to see the specialist. I am not sure what surgery the specialist had planned Longstanding persistent atrial fibrillation ([facility]) Seems to be in sinus rhythm now. Continue Eliquis Paroxysmal atrial fibrillation ([facility]) Microalbuminuric diabetic nephropathy ([facility]) Check labs [facility] of Present illness Narrative Subjective Patient ID: Donovan Jacome is a 87 y.o. male. Donovan wanted to discuss several issues today. He [...] Memory: Cognition normal. Judgment: Judgment normal. Assessment/Plan Donovan was seen today for concerns about meds and blood pressure. Diagnoses and all orders for this visit: Paroxysmal atrial fibrillation ([facility]) - Protime & INR; Future New order for protime and INR given to the patient. I will also fax to the [facility]. Hypertensive 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 ([facility]) - Comprehensive metabolic panel; Future Check CMP. [...] complication, without long-term current use of insulin ([facility]) - Hemoglobin A1c; Future Check A1c Arteriosclerotic vascular disease - Lipid panel; Future Check lipid panel documented in this encounter [facility] Evaluation note No assessment inform ation available [facility] Work Phone: Evaluation note N/A Dept. of Dermato logy Evaluation note Diagnosis Paroxysmal atrial fibrillation (CMS-HCC)- Primary Atrial fibrillation 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) Essential hypertension Unspecified essential hypertension Hypothyroidism, unspecified type Type 2 diabetes mellitus without complication, without long-term current use of insulin (CMS-HCC) Arteriosclerotic vascular disease Generalized and unspecified atherosclerosis [facility] Longstanding persistent atrial fibrillation (CMS-HCC)- Primary [facility] Diagnosis 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)- Primary Hyperlipidemia, unspecified hyperlipidemia type Stage 4 chronic kidney disease (CMS-HCC) Type 2 diabetes mellitus without complication, without long-term current use of insulin (CMS-HCC) Hyperparathyroidism (CMS-HCC) Hyperparathyroidism, unspecified 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) Malignant melanoma of skin of scalp and neck Longstanding persistent atrial fibrillation (CMS-HCC) Paroxysmal atrial fibrillation (CMS-HCC) Atrial fibrillation Microalbuminuric diabetic nephropathy (CMS-HCC) [facility] Diagnosis Type 2 diabetes mellitus without complication, without long-term current use of insulin (CMS-HCC)- Primary 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) [facility]* Patient returns [...] the above we will continue as is. -[facility] [address] DO Work Phone: History of [...] the above we will continue as is. -[facility] 250 DO Work Phone: History of Present [...] above we suggest continued therapy as before- [facility] [place] [facility] [place] Work Phone: History of Present [...] significant cardiac hx with decreased cardiac function [id number] Work Phone: History of Present illness NarrativePatient [...] we believe his cardiac status to be stable.[facility] 250 DO Work Phone: History of Present [...] we suggested continued therapy as before without change.[facility] 250 DO Work Phone: InstructionsNot on filedocumented in this encounter [facility] filedocumented in this encounter [facility]ructionsNot on filedocumented in this encounter [facility]ructionsNot on filedocumented in this encounter [facility] (narrative)* Name Reason for referral NA [facility] Dept. of Dermatology Summary Purpose Family History Unknown Family Member Name Dates Details No [...] ardial infarction: Father(V17.3, Z82.49) Status:Active Advance Directives Advance Directive Response Recorded Date/ Time Advance Directives No March 20, 2017 1:25pm Advance Directive Response Recorded Date/ Time Advance Directives No March 20, 2017 12:25pm Chief Complaint DONOVAN JACOME is being seen for a 6 month follow-up of.DONOVAN JACOME is being seen for a 6 month follow-up of.DONOVAN JACOME is being seen for a 6-9 month follow-up of.melanoma of the scalpmelanoma of the scalpDANIELNGHIA JACOME is being seen for a 6 month follow-up of.DONOVAN JACOME is being seen for a 6-7 month follow-up of.DONOVAN JACOME is being seen for a 6-7 [...] section and content) DATE CREATED AUTHOR 08/08/2019 [facility] DATE CREATED AUTHOR AUTHOR'S ORGANIZ ATION 02/27/2020 Garcia Jono [facility] DATE CREATED AUTHOR AUTHOR'S ORGANIZ ATION 08/24/2021 [facility] DATE CREATED AUTHOR AUTHOR'S ORGANIZ ATION 10/27/2022 [facility] DATE CREATED AUTHOR AUTHOR'S ORGANIZ ATION 01/13/2023 [facility] DATE CREATED AUTHOR AUTHOR'S ORGANIZ ATION 01/14/2023 [employer] DATE CREATED AUTHOR AUTHOR'S ORGANIZ ATION 07/05/2023 [facility] DATE CREATED AUTHOR AUTHOR'S ORGANIZ ATION 08/06/2023 [facility] DATE CREATED AUTHOR AUTHOR'S ORGANIZ ATION 08/07/2023 [facility] Care Teams (unrecognized sec tion and content) Team Status: Active Member Role Status Dates Phil Morin DO Primary Care Provider Active Team Status: Inactive Member Role Status Dates Phil Morin DO Primary Care Provider Active Renetta Langston MD Attending Provider Active Field Agronomist Relationship Specialty Start Date End Date Phil Morin DO [address], [place] [address] PCP - General Family Medicine 03/07/22 Team Status: Inactive Member Role Status Dates Phil Morin DO Primary Care Provider Active Start: June 28, 2023 End: June 28, 2023 Renetta Langston MD Attending Provider Active Start: June 28, 2023 End: June 28, 2023 Field Agronomist Relationship Specialty Start Date End Date Phil Morin DO [address], [place] [address] PCP - General Family Medicine 03/07/22 Field Agronomist Relationship Specialty Start Date End Date Phil Morin DO [address], [place] [address] PCP - General Family Medicine 03/07/22 Field Agronomist Relationship Specialty Start Date End Date Phil Morin DO [address], [place] [address] PCP - General Family Medicine 03/07/22 Field Agronomist Relationship Specialty Start Date End Date Phil Morin DO [address], [place] [address] PCP - General Family Medicine 03/07/22 Goals (unrecognized section and content) Goals may be documented in a n alternate sectionGoals may be documented in an alternate sectionGoals may be documented in an alternate sectionGoals may be documented in an alternate sectionNot on filedocumented as of this encounterGoals may be documented in an alternate sectionNot on filedocumented as of this encounterNot on filedocumented as of this encounterNot on filedocumented as of this encounterNot on filedocumented as of this encounter Reason for Visit (unrecogniz ed section and content) Reason Comments concerns about meds and blood pressure Reason Comments Hypertension Hyperlipidemia FOR RECORDS PERTAINING TO PATIENTS WHO ARE [...] BE BASED ON THE PRIMARY CLINICAL RECORDS. [employer] [facility]. provides no warranty or guarantee of the accuracy or completeness of information in this document.
[2023-09-17 10:48] LABS: Prothrombin Time 21.3 sec (9.0-11.6)
== END 2023-09-17 09:30 | disposition home or self-care (01) ==
LOC: LAB 09:31
PROVIDERS: PCP Family Medicine; Visit Provider Family Medicine
DX: I48.11 Longstanding persistent atrial fibrillation (principal)
CPT/HCPCS: 36415; 85610

== ENCOUNTER 2023-10-17 09:13 | Outpatient (OUT) | payer MEDICARE, SELFPAY ==
[2023-10-17 09:58] LABS: INR 1.83; Prothrombin Time 18.3 sec (9.0-11.6)
== END 2023-10-17 09:14 | disposition home or self-care (01) ==
LOC: LAB 09:13
PROVIDERS: PCP Family Medicine; Visit Provider Family Medicine
DX: I48.11 Longstanding persistent atrial fibrillation (principal)
CPT/HCPCS: 36415; 85610

== ENCOUNTER 2023-11-02 08:30 | Outpatient (OUT) | payer MEDICARE, SELFPAY ==
--- OUTSIDE RECORDS SUMMARY | 2023-11-02 08:42 | XMS_ITS | CCD ---
Author Organization [facility] Care Team Providers Care Clinical Applications Specialist Name Role Phone Phil Morin Unavailable Unavailable Unavailable Patience, DO Villarreal Primary Care Provider MD Renetta Langston Attending Provider Karlie Craig Unavailable Unavailable Florentino Hernadez Unavailable Unavailable Furlong, DO Phil Primary Care Provider [phone] MD Renetta Langston Attending Provider Gadiel Estevez Unavailable Unavailable Furlong, DO Phil Primary Care Provider MD Renetta Langston Attending Provider SUSANNAH, DR JARON Roger Admitting Unavailable SUSANNAH, DR [...] FURLONG, DR PHIL Soliz Primary Care Unavailable SUSANNAH, DR JARON Roger Admitting Unavailable SUSANNAH, DR JARON Roger Consulting Unavailable SUSANNAH, DR JARON Roger Attending Unavailable SUSANNAH, DR JARON Roger Admitting Unavailable FURLONG, DR PHIL Soliz Primary Care Unavailable KUNShalonda, DR JARON Roger Consulting Unavailable SUSANNAH, DR JARON Roger Attending Unavailable SUSANNAH, DR JARON Roger Admitting Unavailable FURLONG, DR PHIL Soliz Primary Care Unavailable SUSANNAH, DR JARON Roger Consulting Unavailable [...] PHIL Soliz Consulting Unavailable HernadezFlorentino Attending Unavailable [facility], Dr. Ketan Andrews Referring Unavaila ble [...] Care Provider MD Renetta Langston Attending Provider Furdestinyng DOPhil Primary Care Provider [phone] Patience, DO Villarreal Primary Care Provider MD Renetta Langston Attending Provider FURDESTINYNG, PHIL G Attending Unavailable FURLONG, PHIL G Referring Unavailable FURLONG, PHIL G Primary Care Unavailable FURLONG, PHIL G Attending Unavailable FURLONG, PHIL G Referring Unavailable FURLONG, PHIL G Primary Care Unavailable FURLONG, PHIL G Referring Unavailable FURLONG, PHIL G Primary Care Unavailable Furlong, DO Phil Primary Care Provider [phone] MD Renetta Langston Attending Provider Patience, Phil Primary Care Unavailable Renetta Langston Admitting Unavail able Renetta Langston Attending Unavail able Furlong, Phil Primary Care Unavailable Renetta Langston Admitting Unavail able Renetta Langston Attending Unavail able Renetta Langston Admitting Unavail able Renetta Langston Attending Unavail able Phil Morin Primary Care Unavailable Renetta Langston Attending Unavail able Renetta Langston Admitting Unavail able Phil Morin Primary Care Unavailable Allergies Allergy Classification Reported Allergen(s) Allergy Type Date of Onset Reaction(s) Facility (17 sources) Aspirin; Translations: [aspirin] Drug Allergy 2 Other (See Comments) -[facility] 250 DO Work Phone: (1 source) No Alert Propensity to adverse reactions to drug 2 [facility] of [facility]atology Medications Current Medications Medication Drug Class(es) Dates Sig (Normalized) Sig (Original) carvedilol 6.25 mg oral tablet (20 sources) alpha-Adrenergic Gen, beta-Adrenergic Gen Start: 04-24-2014 Carvedilol Active TABLET July 19, 2019 1:00am eplerenone 25 mg oral tablet (20 sources) Aldosterone Antagonist Start: 04-24-2014 Eplerenone Active TABLET July 19, 2019 1:00am esomeprazole 20 mg delayed release oral capsule (5 sources) Proton Pump Inhibitor esomeprazo le (NexIUM) 20 mg capsule daily as needed. 0 Active fluticasone propionate 0.05 mg/actuat metered dose nasal spray (11 sources) Corticosteroid Start: 07-19-2019 Fluticasone Propionate Active July 19, 2019 1:00am lisinopril 2.5 mg oral tablet (20 sources) Angiotensin Converting Enzyme Inhibitor Start: 07-19-2019 Lisinopril Active TABLET July 19, 2019 1:00am rosuvastatin calcium 20 mg oral tablet (20 sources) HMG-CoA Reductase Inhibitor Start: 07-19-2019 Rosuvastatin Active TABLET July 19, 2019 1:00am warfarin sodium 5 mg oral tablet (20 sources) Vitamin K Antagonist Start: 04-24-2014 Warfarin Active TABLET July 19, 2019 1:00am Start: 04-24-2014 Warfarin Sodiu m 2.5 MG [...] complication, without long-term current use of insulin ([facility]-H[facility]) , 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) Take 1 tablet (5 mg total) by [...] of care unspecified] Onset: 2 03-07-2022 Chronic Biliary tract disease (11 sources) Biliary colic; Translations: [Calculus of bile duct without cholangitis or cholecystitis without obstruction] Onset: 0 07-19-2019 Episodic Cancer of bladder (17 sources) Cancer in [...] unspecified] Onset: 6 03-07-2022 Chronic Conduction disorders (13 sources) Automatic implantable cardiac defibrillator in situ; Translations: [Automatic implantable cardiac defibrillator in situ] Onset: 4 Chronic Coronary atherosclerosis and other heart disease [...] Neoplasm of uncertain behavior of skin Onset: 2 Episodic Nutritional deficiencies (5 sources) Vitamin D [...] Onset: 2 05-29-2023 Chronic Unclassified (1 source) Longstanding persistent atrial fibrillation; Translations: [Longstanding persistent atrial fibrillation] Onset: 3 Unclassified (1 source) concerns about meds and blood pressure Onset: 4 Unclassified (1 source) Ventricular tachycardia, unspecified; Translations: [Ventricular tachycardia, unspecified] Onset: 4 Unclassified (1 source) Encounter for adjustment and management of automatic implantable cardiac defibrillator; Translations: [Encounter for adjustment and management of automatic implantable cardiac defibrillator] Onset: 3 Unclassified (1 source) Ventricular tachycardia, unspecified; Translations: [Ventricular tachycardia, unspecified] Onset: 3 Past or Other Problems Problem Classification Problem Date Documented Da te Episodic/Chronic Crushing injury or internal injury (5 sources) [...] 08-06-2023 Albumin [Mass/Vol] 4.2 g/dL Normal 3.2-5.3 [facility] Comment on above: Performed By: #### Gorge DELANEY, 52422-6, 3016-3 #### [facility] ([id number]) [address], [address] [place] [address] ALP [Catalytic activity/Vol] 77 U/L Normal 39-130 [facility] Comment on above: Performed By: #### Gorge DELANEY, 32578-5, 3016-3 #### [facility] ([id number]) [address], [address] [place] [address] ALT [Catalytic activity/Vol] 11 U/L Normal 0-40 [facility] Comment on above: Performed By: #### Gorge DELANEY, 43983-5, 3016-3 #### [facility] ([id number]) [address], [address] [place] [address] Anion gap [Moles/Vol] 8 mmol/L Normal 5-15 [facility] Comment on above: Performed By: #### Gorge DELANEY, 40925-2, 3016-3 #### [facility] ([id number]) [address], [address] [place] [address] AST [Catalytic activity/Vol] 19 U/L Normal 0-41 [facility] Comment on above: Performed By: #### Gorge DELANEY, 18946-0, 3016-3 #### [facility] ([id number]) [address], [address] [place] [address] Bilirubin [Mass/Vol] 0.5 mg/dL Normal 0.3-1.2 [facility] Comment on above: Performed By: #### Gorge DELANEY, 86810-3, 3015-3 #### [facility] ([id number]) [address], [facility] [address] [place] [address] Calcium [Mass/Vol] 9.1 mg/dL Normal 8.5-10.5 [facility] Comment on above: Performed By: #### Gorge DELANEY, 52095-6, 3015-3 #### [facility] ([id number]) [address] [address] Chloride [Moles/Vol] 106 mmol/L Normal 98-109 [facility] Comment on above: Performed By: #### Gorge DELANEY, 77254-0, 3015-3 #### [facility] ([id number]) [address] [address] CO2 [Moles/Vol] 26 mmol/L Normal 22-32 [facility] Comment on above: Performed By: #### Gorge DELANEY, 86095-1, 3015-3 #### [facility] ([id number]) [address] [address] Creatinine [Mass/Vol] 2.12 mg/dL High 0.60-1.30 [facility] Comment on above: Result Comment: METH OD TRACEABLE TO IDMS STANDARD Performed By: #### Gorge DELANEY, 84922-6, 3015-3 #### [facility] ([id number]) [address] [address] GFR/1.73 sq M.predicted among non-blacks MDRD (S/P/Bld) [Vol rate/Area] 29 mL/min/{1.73_m2} Low >59 [facility] Comment on above: Result Comment: Reported eGFR is based on the CKD-EPI 2021 equation that does not use a race coefficient. Performed By: #### C RHETT, 16992-0, 3015-3 #### [facility] ([id number]) [address], [address] [place] [address] Glucose [Mass/Vol] 113 mg/dL High 65-99 [facility] Comment on above: Performed By: #### Gorge DELANEY, 11705-6, 3015-3 #### [facility] ([id number]) [address], [address] [place] [address] Potassium [Moles/Vol] 4.8 mmol/L Normal 3.5-5.0 [facility] Comment on above: Performed By: #### Gorge DELANEY, 00446-2, 3015-3 #### [facility] ([id number]) [address], [address] [place] [address] Protein [Mass/Vol] 7.0 g/dL Normal 6.0-8.0 [facility] Comment on above: Performed By: #### Gorge DELANEY, 46923-1, 3015-3 #### [facility] ([id number]) [address], [address] [place] [address] Sodium [Moles/Vol] 140 mmol/L Normal 134-146 [facility] Comment on above: Performed By: #### Gorge DELANEY, 24338-1, 3015-3 #### [facility] ([id number]) [address], [address] [place] [address] Urea nitrogen [Mass/Vol] 24 mg/dL Normal 5-27 [facility] Comment on above: Performed By: #### Gorge DELANEY, 55765-9, 3015-3 #### [facility] ([id number]) [address], [address] [place] [address] Comprehensive metabolic pane donato 08-06-2023 Albumin [Mass/Vol] 4.2 g/dL 3.2 - 5.3 g/dL [facility] ALP [Catalytic activity/Vol] 77 U/L 39 - 130 U/L [facility] ALT No additional P-5'-P [Catalytic activity/Vol] 11 U/L 0 - 40 U/L [facility] Anion gap [Moles/Vol] 8 mmol/L 5 - 15 mmol/L [facility] AST [Catalytic activity/Vol] 19 U/L 0 - 41 U/L [facility] Bilirubin [Mass/Vol] 0.5 mg/dL 0.3 - 1 .2 mg/dL [facility] Calcium [Mass/Vol] 9.1 mg/dL 8.5 - 10. 5 mg/dL [facility] Chloride [Moles/Vol] 106 mmol/L 98 - 10 9 mmol/L [facility] CO2 [Moles/Vol] 26 mmol/L 22 - 32 mmol/L [facility] Creatinine [Mass/Vol] 2.12 mg/dL High 0.60 - 1.30 mg/dL [facility] Comment on above: METHOD TRACEABLE TO [facility] STANDARD eGFR (CKD-EPI)non-race dependent 29 Low - PINF [facility] Comment on above: Reported eGFR is based on the CKD-EPI 2020 equation that does not use a race coefficient. Glucose [Mass/Vol] 113 mg/dL High 65 - 99 mg/dL [facility] Potassium [Moles/Vol] 4.8 mmol/L 3.5 - 5.0 mmol/L [facility] Protein [Mass/Vol] 7.0 g/dL 6.0 - 8.0 g/dL [facility] Sodium [Moles/Vol] 140 mmol/L 134 - 146 mmol/L [facility] Urea nitrogen [Mass/Vol] 24 mg/dL 5 - 27 mg/dL [facility] HGB A1C (GLYCO-HGB)on 2023 Glucose [Mass/Vol] 140 mg/dL Normal [facility] Comment on above: Performed By: #### C , 35805-7, 3016-3 #### [facility] ([id number]) [address] [place] [address], [address] [place] [address] HbA1c (Bld) [Mass fraction] 6.5 % High 4.4-5.6 [facility] Comment on above: Result Comment: NOTE ADA Guidelines Result HgbA1c Normal : less than 5.7 % Prediabetes : 5.7 % to 6.4 % Diabetes : > 6.4 % Use with caution in patients with abnormal hemoglobin variants as the half-life of red blood cells and in vivo glycation rates are affected. Performed By: #### C , 61708-5, 3016-3 #### [facility] ([id number]) [address] [place] [address], [address] [place] [address] Hemoglobin A1con 08-06-2023 Average glucose Estimated from glycated hemoglobin (Bld) [Mass/Vol] 140 mg/dL [facility] HbA1c (Bld) [Mass fraction] 6.5 % High 4.4 - 5.6 % [facility] Comment on above: NOTE ADA Guidelines Result HgbA1c Normal : less than 5.7 % Prediabetes : 5.7 % to 6.4 % Diabetes : > 6.4 % Use with caution in patients with abnormal hemoglobin variants as the half-life of red blood cells and in vivo glycation rates are affected. Interpretation and review of laboratory results Abnormal [facility] Lipid 1996 panelon Cholesterol [Mass/Vol] 91 mg/dL Low 150 - 200 mg/dL [facility] Cholesterol in HDL [Mass/Vol] 39 mg/dL Low 39 - PINF mg/dL [facility] Comment on above: HDL <40 mg/dL - High Risk HDL > or = 40mg/dL- Desirable HDL >60 mg/dL - Negative Risk Cholesterol in LDL [Mass/Vol] 18 mg/dL NINF - 130 mg/dL [facility] Comment on above: LDL <100 mg/dL - Desirable LDL >160 mg/dL - High Risk Cholesterol in VLDL [Mass/Vol] 34 mg/dL High 0 - 30 mg/dL [facility] Cholesterol.total/Chol esterol in HDL [Mass ratio] 2.3 {ratio} 1.0 - 5.0 [facility] Triglyceride [Mass/Vol] 168 mg/dL High 27 - 150 mg/dL [facility] Cholesterol [Mass/Vol] 91 mg/dL Low 150-200 [facility] Comment on above: Performed By: ###[place], [address]-5, 3016-3 #### [facility] ([id number]) [address], [address] [place] [address] Cholesterol in HDL [Mass/Vol] 39 mg/dL Low >39 [facility] Comment on above: Result Comment: HDL <40 mg/dL - High Risk HDL > or = 40mg/dL- Desirable HDL >60 mg/dL - Negative Risk Performed By: ###[place], [address]-7, 3016-3 #### [facility] ([id number]) [address], [address] [place] [address] Cholesterol in LDL [Mass/Vol] 18 mg/dL Normal <130 [facility] Comment on above: Result Comment: LDL <100 mg/dL - Desirable LDL >160 mg/dL - High Risk Performed By: ###[place], [address]-4, 3016-3 #### [facility] ([id number]) [address], [address] [place] [address] Cholesterol in VLDL [Mass/Vol] 34 mg/dL High 0-30 [facility] Comment on above: Performed By: #### Gorge DELANEY, 41714-5, 3016-3 #### [facility] ([id number]) [address], [facility] [address] [place] [address] CHOLESTEROL:HDL 2.3 Normal 1.0-5.0 [facility] Comment on above: Performed By: #### Gorge DELANEY, 54747-3, 6-3 #### [facility] ([id number]) [address] [facility], [address] [address] Triglyceride [Mass/Vol] 168 mg/dL High 27-150 [facility] Comment on above: Performed By: #### Gorge DELANEY, 26965-9, 3016-3 #### [facility] ([id number]) [address] [facility], [address] [address] No Panel Informationon 08-05 Interpretation and review of laboratory results Abnormal [facility] TSHon 08-06-2023 TSH Qn 3.12 m[IU]/L [facility] TSH Qnon 08-06-2023 [facility] TSH 3.12 uIU/mL Normal 0.49-4.67 [facility] Comment on above: Performed By: #### Gorge DELANEY, 02501-9, 3016-3 #### [facility] ([id number]) [address], [address] [place] [address] Protime & INRon 07-18-2023 External Inr 2.02 [facility] External Protime 20.6 [facility] Office Visit (Cardiology)on 01-12-2023 Follow-up [...] a smoker Tobacco Use Screening; Status:Complete; Done: [id number] Ventricular tachycardia IO EKG Electrocardiogram- 12 Lead; Status:Complete; Done: [id number] Patient Instructions Please bring all medicines, vitamins, [...] negative for complaint. Vitals Vital Signs Recorded: [id number] 02:17PM Heart Rate72, Apical Anfswhvf886, RUE, Sitting Dlshwlswo55, RUE, Sitting Height5 ft 9 in Ljkatx360 lb BMI Vfjgpaxfxy98.78 kg/m2 BSA Calculated1.88 Tobacco Useb) No Falls [...] Jan 13 2023 2:45PM EST (Author) Normal [facility] Tobacco Screening.on 023 Fall risk assessment a) No falls within the last year [facility] 250 DO Work Phone: Tobacco use status CPHS b) No [facility] 250 DO Work Phone: PROTIMEon 10-17-2022 INR Coag (PPP) [Relative time] 2.38 {INR} Normal [facility] Comment on above: Performed By: #### P T #### [facility] [address] [place] [address] Dr. Sariah Boyle INR GUIDELINES SEE BELOW Normal [facility] Comment on above: Result Comment: NHUNG RED INR: 2.0 - 3.0 CONDITIONS NOT LISTED BELOW 2.5 - 3.5 FOR PROSTHETIC HEART VALVE REPLACEMENT 2.5 - 3.5 RECURRENT THROMBOSIS Performed By: #### P T #### [facility] [address] [place] [address] Dr. Sariah Boyle PT Coag (PPP) [Time] 24.0 s Critically high 9.0-11.6 [facility] Comment on above: Performed By: #### P T #### [facility] [address] [place] [address] Dr. Sariah Boyle PROTIMEon 09-15-2022 INR Coag (PPP) [Relative time] 2.18 {INR} Normal [facility] Comment on above: Performed By: #### P T #### [facility] [address] [place] [address] Dr. Sariah Boyle INR GUIDELINES SEE BELOW Normal [facility] Comment on above: Result Comment: NHUNG RED INR: 2.0 - 3.0 CONDITIONS NOT LISTED BELOW 2.5 - 3.5 FOR PROSTHETIC HEART VALVE REPLACEMENT 2.5 - 3.5 RECURRENT THROMBOSIS Performed By: #### P T #### [facility] [address] [place] [address] Dr. Sariah Boyle PT Coag (PPP) [Time] 22.1 s Critically high 9.0-11.6 [facility] Comment on above: Performed By: #### P T #### [facility] [address] [place] [address] Dr. Sariah Boyle PROTIMEon 08-15-2022 INR Coag (PPP) [Relative time] 2.44 {INR} Normal [facility] Comment on above: Performed By: #### P T #### [facility] [address] [place] [address] Dr. Sariah Boyle INR GUIDELINES SEE BELOW Normal [facility] Comment on above: Result Comment: NHUNG RED INR: 2.0 - 3.0 CONDITIONS NOT LISTED BELOW 2.5 - 3.5 FOR PROSTHETIC HEART VALVE REPLACEMENT 2.5 - 3.5 RECURRENT THROMBOSIS Performed By: #### P T #### [facility] [address] [place] [address] Dr. Sariah Boyle PT Coag (PPP) [Time] 24.6 s Critically high 9.0-11.6 [facility] Comment on above: Performed By: #### P T #### [facility] [address] [place] [address] Dr. Sariah Boyle PROTIMEon 07-18-2022 INR Coag (PPP) [Relative time] 2.33 {INR} Normal [facility] Comment on above: Performed By: #### P T #### [facility] [address] [place] [address] Dr. Sariah Boyle INR GUIDELINES SEE BELOW Normal [facility] Comment on above: Result Comment: NHUNG RED INR: 2.0 - 3.0 CONDITIONS NOT LISTED BELOW 2.5 - 3.5 FOR PROSTHETIC HEART VALVE REPLACEMENT 2.5 - 3.5 RECURRENT THROMBOSIS Performed By: #### P T #### [facility] [address] [place] [address] Dr. Sariah Boyle PT Coag (PPP) [Time] 23.5 s Critically high 9.0-11.6 [facility] Comment on above: Performed By: #### P T #### [facility] [address] [place], [place] [address] Dr. Sariah Boyle Office Visit (Cardiology)on 07-14-2022 [...] negative for complaint. Vitals Vital Signs Recorded: [id number] 03:41PM Heart Rate80, L Radial Fjtfagsx814, LUE, Sitting Uadcfyaux95, LUE, Sitting Height5 ft 9 in Wsvyrh870 lb BMI Yfbxzdendq09.92 kg/m2 BSA Calculated1.89 Tobacco Useb) No PHQ-2 [...] Electronically si (more content not included)... Normal [facility] Tobacco Screening.on 023 Adult depression screening assessment No [facility] 250 DO Work Phone: Fall risk assessment a) No falls within the last year [facility] 250 DO Work Phone: Tobacco use status CPHS b) No [facility] 250 DO Work Phone: PROTIMEon 07-04-2022 INR Coag (PPP) [Relative time] 1.91 {INR} Normal [facility] Comment on above: Performed By: #### P T #### [facility] [address] [place] [address] Dr. Sariah Boyle INR GUIDELINES SEE BELOW Normal [facility] Comment on above: Result Comment: NHUNG RED INR: 2.0 - 3.0 CONDITIONS NOT LISTED BELOW 2.5 - 3.5 FOR PROSTHETIC HEART VALVE REPLACEMENT 2.5 - 3.5 RECURRENT THROMBOSIS Performed By: #### P T #### [facility] [address] [place] [address] [address] Sariah Boyle PT Coag (PPP) [Time] 19.5 s Critically high 9.0-11.6 [facility] Comment on above: Performed By: #### P T #### [facility] [address] [place] [address] [address] Sariah Boyle Dermatopathologyon Dermatopathology Name RIO JACOME Pathologist: RIGO CHRISTIAN MD Date of Procedure: 06/15/2022 Date Received: 06/16/2022 Date Reported 06/23/2022 Submitting Physician: FLORENTINO HERNADEZ MD, Location: [facility] Other External # FINAL DIAGNOSIS A. SKIN, [...] determined by the Department of Pathology at [facility]. The FDA does not require this test [...] appropriately. Electronically Signed Out By RIGO CHRISTIAN MD/[facility] By the signature on this report, the individual or group listed as making the Final Interpretation/Diagno sis certifies that they have reviewed this case. 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 ([place] office). Specimens Submitted As: A: SKIN, SCALP STAGE II A B: SKIN, SCALP STAGE II B Gross Description: A: Received in formalin, labeled A, is a camara, semi-circular, ellipsoid piece of skin measuring [id number], oriented by the surgeon with orange ink on the bisected margin and blue ink marking the radii on either side of the central black-inked margin. The specimen is embedded en face in toto in one block. B: Received in formalin, labeled B, is a camara, semi-circular, ellipsoid piece of skin measuring [id number], oriented by the surgeon with orange ink on the bisected margin and green ink marking the radii on either side of the central black-inked margin. The specimen is embedded en face in toto in one block. dcp/06/16/2022 The assays/tests were performed with appropriate positive and negative controls which stained appropriately. [facility] [place] [id number] [place] [address] 310 Normal [facility] Comment on above: Performed By: #### D #### Dermatopathology No Panel Informationon 06-15 [place] [address] DO Work Phone: PROTIMEon 06-07-2022 INR Coag (PPP) [Relative time] 1.44 {INR} Normal [facility] Comment on above: Performed By: #### P T #### [facility] [address] [place] [address] Dr. Sariah Boyle INR GUIDELINES SEE BELOW Normal [facility] Comment on above: Result Comment: NHUNG RED INR: 2.0 - 3.0 CONDITIONS NOT LISTED BELOW 2.5 - 3.5 FOR PROSTHETIC HEART VALVE REPLACEMENT 2.5 - 3.5 RECURRENT THROMBOSIS Performed By: #### P T #### [facility] [address] [address] [address] Sariah Boyle PT Coag (PPP) [Time] 15.0 s Critically high 9.0-11.6 [facility] Comment on above: Performed By: #### P T #### [facility] [address] [address] [address] Sariah Boyle Dermatopathologyon 3 Dermatopathology Name RIO JACOME Pathologist: RIGO CHRISTIAN MD Date of Procedure: 06/06/2022 Date Received: 06/07/2022 Date Reported 06/12/2022 Submitting Physician: FLORENTINO HERNADEZ MD, Location: ADE Other External # FINAL DIAGNOSIS A. SKIN, [...] M.D. Electronically Signed Out By RIGO CHRISTIAN MD/[facility] By the signature on this report, the individual or group listed as making the Final Interpretation/Diagno sis certifies that they have reviewed this case. Diagnostic interpretation performed at [facility]opath [facility] [address] [facility], [facility] [address] Microscopic Description: A. Microscopic examination reveals a [...] lentigo stage I maligna type. Path #: [id number]. A1, B1, C1, D1, E1, F1, G1. Excision. ([facility]). Specimens Submitted As: A: SKIN, OCCIPITAL SCALP A1 B: SKIN, OCCIPITAL SCALP B1 C: SKIN, OCCIPITAL SCALP C1 D: SKIN, OCCIPITAL SCALP D1 E: SKIN, OCCIPITAL SCALP E1 F: SKIN, OCCIPITAL SCALP F1 G: SKIN, OCCIPITAL SCALP G1 DEBULK Gross Description: A: Received in formalin, labeled A1, is a camara, ellipsoid piece of skin measuring [id number], oriented by the surgeon with yellow ink on one margin, orange ink on the opposite margin, and black ink marking the margin opposite the surgical margin. The specimen is embedded en face in toto in one block. B: Received in formalin, labeled B1, is a camara, ellipsoid piece of skin measuring 27x2a0kq, oriented by the surgeon with orange ink on one surgical margin, green ink on the opposite margin, black ink marking the margin opposite the surgical margin. The specimen is embedded en face in toto in one block. C: Received in formalin, labeled C1, is a camara, ellipsoid piece of skin measuring 74a9g7wf, oriented by the surgeon with green ink on one margin, yellow ink on the opposite margin, and black ink marking the margin opposite the surgical margin. The specimen is embedded en face in toto in one block. D: Received in formalin, labeled D1, is a camara, ellipsoid piece of skin measuring [id number], oriented by the surgeon with yellow ink on one margin, red ink on the opposite margin, and black ink marking the margin opposite the surgical margin. E: Received in formalin, labeled E1, is a camara, ellipsoid piece of skin measuring 09q2k5yf, oriented by the surgeon with red ink on one margin, blue ink on the opposite margin, and black ink marking the margin opposite the surgical margin. F: Received in formalin, labeled F1, is a camara, ellipsoid piece of skin measuring 71b2k4bs, oriented by the surgeon with blue ink on one margin, yellow ink on the opposite margin, and black ink marking the margin opposite the surgical margin. G: Received in formalin, labeled G1, (more content not included)... Normal [facility] Comment on above: Performed By: #### D #### Dermatopathology No Panel Informationon 06-06 [facility] 250 DO Work Phone: PROTIMEon 05-08-2022 INR Coag (PPP) [Relative time] 2.06 {INR} Normal [facility] Comment on above: Performed By: #### P T #### [facility] [address] [place] [address] Dr. Sariah Boyle INR GUIDELINES SEE BELOW Normal [facility] Comment on above: Result Comment: NHUNG RED INR: 2.0 - 3.0 CONDITIONS NOT LISTED BELOW 2.5 - 3.5 FOR PROSTHETIC HEART VALVE REPLACEMENT 2.5 - 3.5 RECURRENT THROMBOSIS Performed By: #### P T #### [facility] [address] [place] [address] Dr. Sariah Boyle PT Coag (PPP) [Time] 21.2 s Critically high 9.0-11.6 [facility] Comment on above: Performed By: #### P T #### [facility] [address] [place] [address] Dr. Sariah Boyle PROTIMEon 04-07-2022 INR Coag (PPP) [Relative time] 3.37 {INR} Normal [facility] Comment on above: Performed By: #### P T #### [facility] [address] [place] [address] Dr. Sariah Boyle INR GUIDELINES SEE BELOW Normal [facility] Comment on above: Result Comment: NHUNG RED INR: 2.0 - 3.0 CONDITIONS NOT LISTED BELOW 2.5 - 3.5 FOR PROSTHETIC HEART VALVE REPLACEMENT 2.5 - 3.5 RECURRENT THROMBOSIS Performed By: #### P T #### [facility] [address], [place] [address] Dr. Sariah Boyle PT Coag (PPP) [Time] 33.6 s Critically high 9.0-11.6 [facility] Comment on above: Performed By: #### P T #### [facility] [address], [place] [address] Dr. 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 He was initially referred for Mohs procedure however repeat biopsy now shows 2.5 mm depth and he is ere to discuss WLE and SLN. 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 Sotomyaor. That was in 2013. He has not [...] Recorded: 03Apr2022 02:27PM Height5 ft 9 in Emvkoi530 lb BMI Qoujdibyde86.92 kg/m2 BSA Calculated1.89 Tobacco Useb) No Falls [...] Apr 19 2022 6:13AM EST (Author) Normal [facility] Tobacco Screening.on 022 Fall risk assessment a) No falls within the last year [facility]Otolaryngol [facility]-Donna Work Phone: Tobacco use status [facility] b) No [facility]-Otolaryngol ogy-[facility]na Work Phone: Dermatopathologyon Dermatopathology Name RIO JACOME Pathologist: RIGO CHRISTIAN MD Date of Procedure: 03/23/2022 Date Received: 03/24/2022 Date Reported 03/27/2022 Submitting Physician: FLORENTINO HERNADEZ MD, Location: ADE Copy To/Referring/Attendin g: GEORGE BAIN MD Other [...] Findings: Associated nevus: Dermal nevus ADDITIONAL TESTING Control Room Operator Blocks: Normal Block: Not applicable Tumor Block: [...] case. Diagnostic interpretation performed at Dermatopath Lab [address] [place] [address], [facility] [address] Clinical History: Previously parietal biopsy. Narrow excisional biopsy today for confirmation of depth. ([place] office). Specimens Submitted As: A: SKIN, OCCIPITAL SCALP Gross Description: Received in formalin is one camara-brown, ellipsoid piece of skin measuring [id number]. The specimen is inked and embedded in toto in four blocks. The tips are in Block A1. dcp/03/25/2022 [facility] [address] [address] Normal [facility] Comment on above: Performed By: #### D #### Dermatopathology No Panel Informationon 03-23 [facility] Work Phone: PROTIMEon 03-06-2022 INR Coag (PPP) [Relative time] 2.08 {INR} Normal [facility] Comment on above: Performed By: #### P T #### [facility] [address] [place] [address] Dr. Sariah Boyle INR GUIDELINES SEE BELOW Normal [facility] Comment on above: Result Comment: NHUNG RED INR: 2.0 - 3.0 CONDITIONS NOT LISTED BELOW 2.5 - 3.5 FOR PROSTHETIC HEART VALVE REPLACEMENT 2.5 - 3.5 RECURRENT THROMBOSIS Performed By: #### P T #### [facility] [address] [address] [address] Sariah Boyle PT Coag (PPP) [Time] 21.4 s Critically high 9.0-11.6 [facility] Comment on above: Performed By: #### P T #### [facility] [address] [address] [address] Sariah Boyle Dermatopathologyon 2 Dermatopathology Name: VIANEY JACOME Pathologist: RIGO CHRISTIAN MD Date of Procedure: 02/16/2022 Date Received: 02/16/2022 Date Reported 02/21/2022 Submitting Physician: FLORENTINO HERNADEZ MD, Location: [facility] Copy To/Referring/Attendin g: MD RAMON REEVESLOKI OSULLIVANDEA FINAL DIAGNOSIS 2 SLIDES, [facility] #[id number] (BX: 02/06/2022) SKIN, OCCIPITAL SCALP, SHAVE BIOPSY: [...] M.D. CANCER SUMMARY REPORT A. 2 SLIDES, [facility] #[id number] (BX: 02/06/2022): SPECIMEN Procedure: Biopsy, shave Specimen [...] FINDINGS Additional Findings: Dermal nevus ADDITIONAL TESTING Control Room Operator Blocks: Normal Block: None Tumor Block: A1 and A2 Electronically Signed Out By RIGO CHRISTIAN MD/GARY Diagnostic interpretation performed at [facility] Dermatopath Lab [address] [place] [id number], [facility] [address] Clinical History: SHAVE/ 2.9 X 2.4CM BCC VS SCC VS MELANOMA VS OTHER Specimens Submitted As: A: 2 SLIDES, [facility] #[id number] (BX: 02/06/2022) Gross Description: Received for consultation from [facility] are two slides labeled [id number] (BX: 02/06/2022) along with the corresponding pathology report. Slide/Block Description 2 SLIDES, [id number]. Keep Slides: N Slides Returned: N Personal Consult: N Normal [facility] Comment on above: Performed By: #### D #### Dermatopathology PROTIMEon 02-03-2022 INR Coag (PPP) [Relative time] 1.83 {INR} Normal [facility] Comment on above: Performed By: #### P T #### [facility] [address] [place] [address] Dr. Sariah Boyle INR GUIDELINES SEE BELOW Normal [facility] Comment on above: Result Comment: NHUNG RED INR: 2.0 - 3.0 CONDITIONS NOT LISTED BELOW 2.5 - 3.5 FOR PROSTHETIC HEART VALVE REPLACEMENT 2.5 - 3.5 RECURRENT THROMBOSIS Performed By: #### P T #### [facility] [address] [address] [address] Sariah Boyle PT Coag (PPP) [Time] 19.0 s Critically high 9.0-11.6 [facility] Comment on above: Performed By: #### P T #### [facility] [address] [place] [address] Dr. Sariah Boyle PROTIMEon 01-02-2022 INR Coag (PPP) [Relative time] 2.05 {INR} Normal [facility] Comment on above: Performed By: #### P T #### [facility] [address] [place] [address] Dr. Sariah Boyle INR GUIDELINES SEE BELOW Normal [facility] Comment on above: Result Comment: NHUNG RED INR: 2.0 - 3.0 CONDITIONS NOT LISTED BELOW 2.5 - 3.5 FOR PROSTHETIC HEART VALVE REPLACEMENT 2.5 - 3.5 RECURRENT THROMBOSIS Performed By: #### P T #### [facility] [address] [place] [address] Dr. Sariah Boyle PT Coag (PPP) [Time] 21.1 s Critically high 9.0-11.6 [facility] Comment on above: Performed By: #### P T #### [facility] [address] [place] [address] Dr. Sariah Boyle Tobacco Screening.on 022 Adult depression screening assessment No [facility] 250 DO Work Phone: Fall risk assessment a) No falls within the last year [facility] 250 DO Work Phone: Tobacco use status [facility] b) No [facility] 250 DO Work Phone: PROTIMEon 12-02-2021 INR Coag (PPP) [Relative time] 2.22 {INR} Normal [facility] Comment on above: Performed By: #### P T #### [facility] [address] [place] [address] Dr. Sariah Boyle INR GUIDELINES SEE BELOW Normal [facility] Comment on above: Result Comment: NHUNG RED INR: 2.0 - 3.0 CONDITIONS NOT LISTED BELOW 2.5 - 3.5 FOR PROSTHETIC HEART VALVE REPLACEMENT 2.5 - 3.5 RECURRENT THROMBOSIS Performed By: #### P T #### [facility] [address] [place] [address] Dr. Sariah Boyle PT Coag (PPP) [Time] 22.8 s Critically high 9.0-11.6 [facility] Comment on above: Performed By: #### P T #### [facility] [address] [place] [address] Dr. Sariah Boyle PROTIMEon 11-18-2021 INR Coag (PPP) [Relative time] 1.95 {INR} Normal [facility] Comment on above: Performed By: #### P T #### [facility] [address] [place] [address] Dr. Sariah Boyle INR GUIDELINES SEE BELOW Normal [facility] Comment on above: Result Comment: NHUNG RED INR: 2.0 - 3.0 CONDITIONS NOT LISTED BELOW 2.5 - 3.5 FOR PROSTHETIC HEART VALVE REPLACEMENT 2.5 - 3.5 RECURRENT THROMBOSIS Performed By: #### P T #### [facility] [address] [place] [address] Dr. Sariah Boyle PT Coag (PPP) [Time] 20.2 s Critically high 9.0-11.6 [facility] Comment on above: Performed By: #### P T #### [facility] [address] [place] [address] Dr. Sariah Boyle COMPREHENSIVE METABOLIC PANE Donato 08-23-2021 Albumin [Mass/Vol] 4.1 g/dL Normal 3.6-5.1 [facility] Comment on above: Performed By: #### 1 023, 0 #### [facility] [address] [address] Towboat Pilot: Jose Juan Arriola MD Albumin/Globulin [Mass ratio] 1.6 {ratio} Normal 1.0-2.5 [facility] Comment on above: Performed By: #### 1 023, 0 #### [facility] [address] [address] Towboat Pilot: Jose Juan Arriola MD ALP [Catalytic activity/Vol] 61 U/L Normal 35-144 [facility] Comment on above: Performed By: #### 1 023, 7600 #### [facility] [address] [address] Towboat Pilot: Jose Juan Arriola MD ALT [Catalytic activity/Vol] 9 U/L Normal 9-46 [facility] Comment on above: Performed By: #### 1 023, 7600 #### [facility] of [address], [address] [place] [address] Towboat Pilot: Jose Juan Arriola MD AST [Catalytic activity/Vol] 14 U/L Normal 10-35 [facility] Comment on above: Performed By: #### 1 023, 7600 #### [facility] of [address], [address] [place] [address] Towboat Pilot: Jose Juan Arriola MD Bilirubin [Mass/Vol] 0.6 mg/dL Normal 0.2-1.2 [facility] Comment on above: Performed By: #### 1 023, 7600 #### [facility] of [address], [address] [place] [address] Towboat Pilot: Jose Juan Arriola MD Calcium [Mass/Vol] 9.1 mg/dL Normal 8.6-10.3 [facility] Comment on above: Performed By: #### 1 023, 7600 #### [facility] of [address] [address] Towboat Pilot: Jose Juan Arriola MD Chloride [Moles/Vol] 109 mmol/L Normal 98-110 [facility] Comment on above: Performed By: #### 1 023, 7600 #### [facility] of [address] [address] Towboat Pilot: Jose Juan Arriola MD CO2 [Moles/Vol] 26 mmol/L Normal 20-32 [facility] Comment on above: Performed By: #### 1 023, 7600 #### [facility] of [address] [address] Towboat Pilot: Jose Juan Arriola MD Creatinine [Mass/Vol] 2.15 mg/dL High 0.70-1.[address] [facility] Comment on above: Result Comment: For patients >49 years of age, the reference limit for Creatinine is approximately 13% higher for people identified as -Lebanese. Performed By: #### 1 023, 7600 #### [facility] of [address], [address] [place] [address] Towboat Pilot: Jose Juan Arriola MD eGFR NON-AFR. [place] 27 mL/min/1.73m2 Low > OR = 60 [facility] Comment on above: Performed By: #### 1 0231, 7600 #### [facility] of [address], [address] [place] [address] Towboat Pilot: Jose Juan Arriola MD GFR/1.73 sq M.predicted among blacks MDRD (S/P/Bld) [Vol rate/Area] 31 mL/min/{1.73_m2} Low > OR = 60 [facility] Comment on above: Performed By: #### 1 0231, 7600 #### [facility] of [address] [address] Towboat Pilot: Jose Juan Arriola MD Globulin (S) [Mass/Vol] 2.5 g/dL Normal 1.9-3.7 [facility] Comment on above: Performed By: #### 1 0231, 7600 #### [facility] of [address], [address] [place] [address] Towboat Pilot: Jose Juan Arriola MD Glucose [Mass/Vol] 93 mg/dL Normal 65-99 [facility] Comment on above: Result Comment: Fasting reference interval Performed By: #### 1 0231, 7600 #### [facility] of [address], [address] [place] [address] Towboat Pilot: Jose Juan Arriola MD Potassium [Moles/Vol] 4.7 mmol/L Normal 3.5-5.3 [facility] Comment on above: Performed By: #### 1 0231, 7600 #### [facility] of [address] [place] [address] Towboat Pilot: Jose Juan Arriola MD Protein [Mass/Vol] 6.6 g/dL Normal 6.1-8.1 [facility] Comment on above: Performed By: #### 1 0231, 7600 #### [facility] [address] [address] Towboat Pilot: Jose Juan Arriola MD Sodium [Moles/Vol] 142 mmol/L Normal 135-146 [facility] Comment on above: Performed By: #### 1 0231, 7600 #### [facility] [address] [address] Towboat Pilot: Jose Juan Arriola MD Urea nitrogen [Mass/Vol] 31 mg/dL High 7-25 [facility] Comment on above: Performed By: #### 1 0231, 7600 #### [facility] [address], [address] [place] [address] Towboat Pilot: Jose Juan Arriola MD Urea nitrogen/Creatinine [Mass ratio] 14 mg/mg Normal 6-22 [facility] Comment on above: Performed By: #### 1 0231, 7600 #### [facility] [address] [address] Towboat Pilot: Jose Juan Arriola MD LIPID PANEL, [facility] Cholesterol [Mass/Vol] 101 mg/dL Normal <200 [facility] Comment on above: Order Comment: FASTI NG:YES FASTING: YES Performed By: #### 1 0231, 7600 #### [facility] [address] [address] Towboat Pilot: Jose Juan Arriola MD Cholesterol in HDL [Mass/Vol] 40 mg/dL Normal > OR = 40 [facility] Comment on above: Order Comment: FASTI NG:YES FASTING: YES Performed By: #### 1 0231, 7600 #### [facility] [address] [address] Towboat Pilot: Jose Juan Arriola MD Cholesterol in LDL [Mass/Vol] 40 mg/dL Normal [facility] Comment on above: Order Comment: FASTI NG:YES FASTING: YES Result Comment: Refe rence range: <100 Desirable range <100 mg/dL for primary prevention; <70 mg/dL for patients with CHD or diabetic patients with > or = 2 CHD risk factors. LDL-C is now calculated using the Phillip-Jiménez calculation, which is a validated novel method providing better accuracy than the Friedewald equation in the estimation of LDL-C. Phillip SS et al. MERYL. 2013;310(19): 2131-0179 (http://education.MyRegistry.com.AlterPoint/faq/FEB527) Performed By: #### 1 0231, 7600 #### [facility] [address], [address] [place] [address] Towboat Pilot: Jose Juan Arriola MD Cholesterol.total/Chol esterol in HDL [Mass ratio] 2.5 {ratio} Normal <5.0 [facility] Comment on above: Order Comment: FASTI NG:YES FASTING: YES Performed By: #### 1 0231, 7600 #### [facility] [place] [address] Towboat Pilot: Jose Juan Arriola MD NON HDL CHOLESTEROL 61 mg/dL (calc) Normal <130 [facility] Comment on above: Order Comment: FASTI NG:YES FASTING: YES Result Comment: For patients with diabetes plus 1 major ASCVD risk factor, treating to a non-HDL-C goal of <100 mg/dL (LDL-C of <70 mg/dL) is considered a therapeutic option. Performed By: #### 1 023, 7600 #### [facility] [place] [address] Towboat Pilot: Jose Juan Arriola MD Triglyceride [Mass/Vol] 127 mg/dL Normal <150 [facility] Comment on above: Order Comment: FASTI NG:YES FASTING: YES Performed By: #### 1 0231, 7600 #### [facility] [place] [address] Towboat Pilot: Jose Juan Arriola MD Tobacco Screening.on Fall risk assessment a) No falls within the last year [facility] 250 DO Work Phone: Tobacco use status CP b) No -[facility] 250 DO Work Phone: B TYPE NATRIURETIC PEPTIDE ( BNP)on 11-03-2020 B TYPE NATRIURETIC PEPTIDE (BNP) Normal [facility] Comment on above: Result Comment: FROZ EN EDTA PLASMA IS REQUIRED TEST NOT PERFORMED No suitable specimen received. Please review the test requirements at [email or web address] Performed By: #### 9 05, 14655, 14672, 6399, 718, 899, 622, 09786, 46314 #### [facility] [place] [address] Towboat Pilot: Jose Juan Arriola MD CBC (INCLUDES DIFF/PLT)on Basophils (Bld) [#/Vol] 0.071 10*3/uL Normal 0-200 [facility] Comment on above: Performed By: #### 9 05, 03916, 29764, 6399, 718, 899, 622, 63119, 37096 #### [facility] [place] [address] Towboat Pilot: Jose Juan Arriola MD Basophils/100 WBC (Bld) 1.0 % Normal [facility] Comment on above: Performed By: #### 9 05, 56105, 60201, 6399, 718, 899, 622, 26049, 65846 #### [facility] [place] [address] Towboat Pilot: Jose Juan Arriola MD Eosinophils (Bld) [#/Vol] 0.099 10*3/uL Normal 15-500 [facility] Comment on above: Performed By: #### 9 05, 84656, 98682, 6399, 718, 899, 622, 01021, 62063 #### [facility] [place] [address] Towboat Pilot: Jose Juan Arriola MD Eosinophils/100 WBC (Bld) 1.4 % Normal [facility] Comment on above: Performed By: #### 9 05, 26084, 01433, 6399, 718, 899, 622, 89899, 04567 #### [facility] [place] [address] Towboat Pilot: Jose Juan Arriola MD Erythrocyte distribution width (RBC) [Ratio] 14.4 % Normal 11.0-15.0 [facility] Comment on above: Performed By: #### 9 05, 80453, 06688, 6399, 718, 899, 622, 59786, 99391 #### [facility] of [place] [address] Towboat Pilot: Jose Juan Arriola MD Hematocrit (Bld) [Volume fraction] 42.7 % Normal 38.5-50.0 [facility] Comment on above: Performed By: #### 9 05, 13177, 97568, 6399, 718, 899, 622, 81328, 70622 #### [facility] of [place] [address] Towboat Pilot: Jose Juan Arriola MD Hemoglobin (Bld) [Mass/Vol] 13.7 g/dL Normal 13.2-17.1 [facility] Comment on above: Performed By: #### 9 05, 79867, 04024, 6399, 718, 899, 622, 11314, 69119 #### [facility] of [place] [address] Towboat Pilot: Jose Juan Arriola MD Lymphocytes (Bld) [#/Vol] 1.512 10*3/uL Normal 850-3900 [facility] Comment on above: Performed By: #### 9 05, 03749, 18782, 6399, 718, 899, 622, 69620, 88860 #### [facility] of [place] [address] Towboat Pilot: Jose Juan Arriola MD Lymphocytes/100 WBC (Bld) 21.3 % Normal [facility] Comment on above: Performed By: #### 9 05, 51890, 24899, 6399, 718, 899, 622, 62212, 93541 #### [facility] of [place] [address] Towboat Pilot: Jose Juan Arriola MD MCH (RBC) [Entitic mass] 28.5 pg Normal 27.0-33.0 [facility] Comment on above: Performed By: #### 9 05, 10793, 84847, 6399, 718, 899, 622, 31631, 34209 #### [facility] of [place] [address] Towboat Pilot: Jose Juan Arriola MD MCHC (RBC) [Mass/Vol] 32.1 g/dL Normal 32.0-36.[address] [facility] Comment on above: Performed By: #### 9 05, 72972, 85669, 6399, 718, 899, 622, 51116, 36296 #### [facility] [place] [address] Towboat Pilot: Jose Juan Arriola MD MCV (RBC) [Entitic vol] 89.0 fL Normal 80.0-100.0 [facility] Comment on above: Performed By: #### 9 05, 39915, 35921, 6399, 718, 899, 622, 41324, 43705 #### [facility] of [place] [address] Towboat Pilot: Jose Juan Arriola MD Monocytes (Bld) [#/Vol] 0.738 10*3/uL Normal 200-950 [facility] Comment on above: Performed By: #### 9 05, 54924, 14755, 6399, 718, 899, 622, 56006, 84319 #### [facility] of [place] [address] Towboat Pilot: Jose Juan Arriola MD Monocytes/100 WBC (Bld) 10.4 % Normal [facility] Comment on above: Performed By: #### 9 05, 52174, 95969, 6399, 718, 899, 622, 20050, 61767 #### [facility] of [place] [address] Towboat Pilot: Jose Juan Arriola MD Neutrophils (Bld) [#/Vol] 4.679 10*3/uL Normal 4198-6803 [facility] Comment on above: Performed By: #### 9 05, 50085, 37035, 6399, 718, 899, 622, 84955, 90345 #### [facility] of [place] [address] Towboat Pilot: Jose Juan Arriola MD Neutrophils/100 WBC (Bld) 65.9 % Normal [facility] Comment on above: Performed By: #### 9 05, 76809, 18622, 6399, 718, 899, 622, 70641, 02587 #### [facility] [place] [address] Towboat Pilot: Jose Juan Arriola MD Platelet mean volume (Bld) [Entitic vol] 11.4 fL Normal 7.5-12.5 [facility] Comment on above: Performed By: #### 9 05, 47261, 75901, 6399, 718, 899, 622, 72942, 44226 #### [facility] [place] [address] Towboat Pilot: Jose Juan Arriola MD Platelets (Bld) [#/Vol] 229 10*3/uL Normal 140-400 [facility] Comment on above: Performed By: #### 9 05, 95308, 86376, 6399, 718, 899, 622, 68975, 23215 #### [facility] [place] [address] Towboat Pilot: Jose Juan Arriola MD RBC (Bld) [#/Vol] 4.80 10*6/uL Normal 4.20-5.80 [facility] Comment on above: Performed By: #### 9 05, 10810, 83422, 6399, 718, 899, 622, 84615, 00681 #### [facility] [place] [address] Towboat Pilot: Jose Juan Arriola MD WBC (Bld) [#/Vol] 7.1 10*3/uL Normal 3.8-10.8 [facility] Comment on above: Performed By: #### 9 05, 36385, 54974, 6399, 718, 899, 622, 83410, 69540 #### [facility] [place] [address] Towboat Pilot: Jose Juan Arriola MD [facility] 11-03-2020 Albumin [Mass/Vol] 4.1 g/dL Normal 3.6-5.1 [facility] Comment on above: Performed By: #### 9 05, 19981, 82181, 6399, 718, 899, 622, 95190, 99467 #### [facility] [place] [address] Towboat Pilot: Jose Juan Arriola MD Albumin/Globulin [Mass ratio] 1.7 {ratio} Normal 1.0-2.5 [facility] Comment on above: Performed By: #### 9 05, 08524, 47479, 6399, 718, 899, 622, 27895, 12002 #### [facility] [place] [address] Towboat Pilot: Jose Juan Arriola MD ALP [Catalytic activity/Vol] 62 U/L Normal 35-144 [facility] Comment on above: Performed By: #### 9 05, 38518, 18783, 6399, 718, 899, 622, 47551, 76486 #### [facility] [place] [address] Towboat Pilot: Jose Juan Arriola MD ALT [Catalytic activity/Vol] 9 U/L Normal 9-46 [facility] Comment on above: Performed By: #### 9 05, 57986, 39792, 6399, 718, 899, 622, 41425, 77711 #### [facility] [place] [address] Towboat Pilot: Jose Juan Arriola MD AST [Catalytic activity/Vol] 13 U/L Normal 10-35 [facility] Comment on above: Performed By: #### 9 05, 17373, 95907, 6399, 718, 899, 622, 34193, 71303 #### [facility] [place] [address] Towboat Pilot: Jose Juan Arriola MD Bilirubin [Mass/Vol] 0.7 mg/dL Normal 0.2-1.2 [facility] Comment on above: Performed By: #### 9 05, 01831, 17359, 6399, 718, 899, 622, 98779, 77084 #### [facility] [place] [address] Towboat Pilot: Jose Juan Arriola MD Calcium [Mass/Vol] 9.5 mg/dL Normal 8.6-10.3 [facility] Comment on above: Performed By: #### 9 05, 20778, 55352, 6399, 718, 899, 622, 54128, 46919 #### [facility] [place] [address] Towboat Pilot: Jose Juan Arriola MD Chloride [Moles/Vol] 109 mmol/L Normal 98-110 [facility] Comment on above: Performed By: #### 9 05, 24576, 40193, 6399, 718, 899, 622, 47946, 33100 #### [facility] [place] [address] Towboat Pilot: Jose Juan Arriola MD CO2 [Moles/Vol] 25 mmol/L Normal 20-32 [facility] Comment on above: Performed By: #### 9 05, 34779, 92494, 6399, 718, 899, 622, 05953, 91605 #### [facility] [place] [address] Towboat Pilot: Jose Juan Arriola MD Creatinine [Mass/Vol] 1.99 mg/dL High 0.70-1.[address] [facility] Comment on above: Result Comment: For patients >49 years of age, the reference limit for Creatinine is approximately 13% higher for people identified as -Lebanese. Performed By: #### 9 05, 18815, 48178, 6399, 718, 899, 622, 78585, 20883 #### [facility] [place] [address] Towboat Pilot: Jose Juan Arriola MD eGFR NON-AFR. [place] 30 mL/min/1.73m2 Low > OR = 60 [facility] Comment on above: Performed By: #### 9 05, 78533, 42849, 6399, 718, 899, 622, 92023, 67970 #### [facility] [address], [address] [place] [address] Towboat Pilot: Jose Juan Arriola MD GFR/1.73 sq M.predicted among blacks MDRD (S/P/Bld) [Vol rate/Area] 34 mL/min/{1.73_m2} Low > OR = 60 [facility] Comment on above: Performed By: #### 9 05, 60495, 12508, 6399, 718, 899, 622, 40220, 29835 #### [facility] [place] [address] Towboat Pilot: Jose Juan Arriola MD Globulin (S) [Mass/Vol] 2.4 g/dL Normal 1.9-3.7 [facility] Comment on above: Performed By: #### 9 05, 07128, 91293, 6399, 718, 899, 622, 78473, 68729 #### [facility] [place] [address] Towboat Pilot: Jose Juan Arriola MD Glucose [Mass/Vol] 144 mg/dL High 65-99 [facility] Comment on above: Result Comment: Fasting reference interval For someone without known diabetes, a glucose value >125 mg/dL indicates that they may have diabetes and this should be confirmed with a follow-up test. Performed By: #### 9 05, 76018, 63706, 6399, 718, 899, 622, 56099, 79361 #### [facility] [place] [address] Towboat Pilot: Jose Juan Arriola MD Potassium [Moles/Vol] 4.9 mmol/L Normal 3.5-5.3 [facility] Comment on above: Performed By: #### 9 05, 78043, 60838, 6399, 718, 899, 622, 95344, 04960 #### [facility] [place] [address] Towboat Pilot: Jose Juan Arriola MD Protein [Mass/Vol] 6.5 g/dL Normal 6.1-8.1 [facility] Comment on above: Performed By: #### 9 05, 79801, 27305, 6399, 718, 899, 622, 10443, 50326 #### [facility] [place] [address] Towboat Pilot: Jose Juan Arriola MD Sodium [Moles/Vol] 141 mmol/L Normal 135-146 [facility] Comment on above: Performed By: #### 9 05, 73340, 60820, 6399, 718, 899, 622, 11694, 73677 #### [facility] [place] [address] Towboat Pilot: Jose Juan Arriola MD Urea nitrogen [Mass/Vol] 31 mg/dL High 7-25 [facility] Comment on above: Performed By: #### 9 05, 14919, 26125, 6399, 718, 899, 622, 94223, 08648 #### [facility] [place] [address] Towboat Pilot: Jose Juan Arriola MD Urea nitrogen/Creatinine [Mass ratio] 16 mg/mg Normal 6-22 [facility] Comment on above: Performed By: #### 9 05, 63998, 88806, 6399, 718, 899, 622, 31063, 84888 #### [facility] [place] [address] Towboat Pilot: Jose Juan Arriola MD MAGNESIUMon 06-16-2021 Magnesium [Mass/Vol] 2.1 mg/dL Normal 1.5-2.5 [facility] Comment on above: Performed By: #### 9 05, 60805, 92212, 6399, 718, 899, 622, 77491, 72459 #### [facility] [place] [address] Towboat Pilot: Jose Juan Arriola MD PHOSPHATE ( PHOSPHORUS)on 11-03-2020 Phosphate [Mass/Vol] 2.9 mg/dL Normal 2.1-4.3 [facility] Comment on above: Performed By: #### 9 05, 80368, 65548, 6399, 718, 899, 622, 85643, 38150 #### [facility] [place] [address] Towboat Pilot: Jose Juan Arriola MD PTH, INTACT WITHOUT [...] Normal High Performed By: #### 9 05, 30451, 18598, 6399, 718, 899, 622, 13888, 77828 #### [facility] [place] [address] Towboat Pilot: Jose Juan Arriola MD TSHon 11-03-2020 TSH Qn 2.08 m[IU]/L Normal 0.40-4.50 [facility] Comment on above: Performed By: #### 9 05, 56061, 86556, 6399, 718, 899, 622, 03384, 98267 #### [facility] [place] [address] Towboat Pilot: Jose Juan Arriola MD URIC ACIDon 11-03-2020 Urate [Mass/Vol] 8.5 mg/dL High 4.0-8.0 [facility] Comment on above: Result Comment: Ther apeutic target for gout patients: <6.0 mg/dL Performed By: #### 9 05, 65135, 66054, 6399, 718, 899, 622, 19869, 29747 #### [facility] [place] [address]25 [facility], [address] [place] [phone] Towboat Pilot: Jose Juan Arriola MD VITAMIN D,25-OH,TOTAL,IAon 0 [...] D, (D2,D3), LC/MS/MS is recommended: order code 70697 (patients >2yrs). See Note 1 Note 1 For additional information, please refer to http://education.ArriveBefore/faq/ZJG816 (This link is being provided for informational/ educational purposes only.) Performed By: #### 1 0231, 7600 #### [facility] [address], [address] [place] [phone] Towboat Pilot: Jose Juan Arriola MD [facility] CARDIAC STRESS/REST INJE CTIONon 08-07-2019 [facility] CARDIAC STRESS/REST INJECTION Patient Name: RIO JACOME STUDY: MYOCARDIAL PERFUSION STRESS TEST WITH LEXISCAN Performing facility: [facility], [address] [place] [address], Suite [facility], [place] [address] [facility] Provider: Melanie Langston MD, FACC PCP: Dr. Alden Morin Supervising provider: Edwige Jacobsen MD, FACC INDICATION: Arteriosclerotic cardiovascular disease Pre-operative risk assessment for Gallbladder scheduled at [facility] on TBA. HISTORY: Gender: M; Age: 83 y/o ; Height: 175.26 cm; Weight: 74.9619336 kg. High Cholesterol; CAD; HTN; ICD V. Tach., ICD Denies smoking. COMPARISON: Previous nuclear testing completed at [facility]. ACCESSION NUMBER(S): [id number]; [id number]; [id number] ORDERING CLINICIAN: RENETTA LANGSTON TECHNIQUE: ONE DAY [...] %. When compared to a study from 2007 there has been no significant interval changes. Electronically signed by: EDWIGE JACOBSEN MD [facility] 03-14-2019 Reminders - From: Nelly DOWNING, Qing Morales To: EU - Clinical; Sent: 03/04/2019 11:29:06 EDT Show up: 03/14/2019 11:29:00 EDT Subject: Ambulatory Reminder Due Date/Time: 03/18/2019 11:29:00 EDT Reminder/Recall FISH/Cytology done 03/04/19 Negative. Normal [facility] Vital Signs Date Time Vital Sign Value Performing Clinician Facility 08-06-2023 10:10-0400 Body height 177.8 cm [facility] 08-06-2023 10:10-0400 Body mass index (BMI) [Ratio] 23.69 kg/m2 [employer] DO Work Phone: [facility] 08-06-2023 10:10-0400 Body temperature 97.81 [degF] PhilLogicLadder DO Work Phone: [facility] 08-06-2023 10:10-0400 Body weight 74.89 kg [employer] DO Work Phone: [facility] 08-06-2023 10:10-0400 Diastolic blood pressure 60 mm[Hg] [employer] DO Work Phone: [facility] 08-06-2023 10:10-0400 Heart rate 93 /min [employer] DO Work Phone: [facility] 08-06-2023 10:10-0400 Respiratory rate 18 /min [employer] DO Work Phone: [facility] 08-06-2023 10:10-0400 SaO2% (BldA) [Mass fraction] 97 % [employer] DO Work Phone: [facility] 08-06-2023 10:10-0400 Systolic blood pressure 106 mm[Hg] Phil Furlong DO Work Phone: [facility] [employer] 05-29-2023 16:13-0500 Body height 177.8 cm Phil Furlong DO Work Phone: [facility] [employer] 05-29-2023 16:13-0500 Body mass index (BMI) [Ratio] 24.12 kg/m2 Phil Furlong DO Work Phone: [facility] [employer] 05-29-2023 16:13-0500 Body temperature 97.81 [degF] Phil Reynagalong DO Work Phone: [facility] [employer] 05-29-2023 16:13-0500 Body weight 76.25 kg Phil Reynagalong DO Work Phone: [facility] 05-29-2023 16:13-0500 Diastolic blood pressure 68 mm[Hg] Phil Reynagalong DO Work Phone: [facility] 05-29-2023 16:13-0500 Heart rate 104 /min Phil Reynagalong DO Work Phone: [facility] [employer] 05-29-2023 16:13-0500 SaO2% (BldA) [Mass fraction] 99 % Phil Reynagalong DO Work Phone: [facility] [employer] 05-29-2023 16:13-0500 Systolic blood pressure 128 mm[Hg] Phil Reynagalong DO Work Phone: [facility] 01-12-2023 14:17-0400 Body height 175.26 cm Phil Reynagalong Work Phone: [facility] [facility] DO Work Phone: 01-12-2023 14:17-0400 Body mass index (BMI) [Ratio] 23.78 kg/m2 Phil Soliz Furlong Work Phone: [facility] 250 DO Work Phone: 01-12-2023 14:17-0400 Body surface area Derived from formula 1.88 m2 Phil G Furlong Work Phone: [facility] [facility] DO Work Phone: 01-12-2023 14:17-0400 Body weight 73.03 kg Phil G Furlong Work Phone: [facility] [facility] DO Work Phone: 01-12-2023 14:17-0400 Diastolic blood pressure 78 mm[Hg] Phil G Furlong Work Phone: [facility] 250 DO Work Phone: 01-12-2023 14:17-0400 Heart rate 72 /min Phil G Furlong Work Phone: [facility] [facility] DO Work Phone: 01-12-2023 14:17-0400 Systolic blood pressure 122 mm[Hg] Phil G Furlong Work Phone: [facility] 250 DO Work Phone: 07-14-2022 15:41-0500 Body height 175.26 cm Phil G Furlong Work Phone: [facility] 250 DO Work Phone: 07-14-2022 15:41-0500 Body mass index (BMI) [Ratio] 23.92 kg/m2 Phil G Furlong Work Phone: [facility] 250 DO Work Phone: 07-14-2022 15:41-0500 Body surface area Derived from formula 1.89 m2 Phil G Furlong Work Phone: [facility] 250 DO Work Phone: 07-14-2022 15:41-0500 Body weight 73.48 kg Phil G Furlong Work Phone: [facility] [facility] DO Work Phone: 07-14-2022 15:41-0500 Diastolic blood pressure 80 mm[Hg] Phil Reynagalong Work Phone: [facility] 250 DO Work Phone: 07-14-2022 15:41-0500 Heart rate 80 /min Phil Reynagalong Work Phone: [facility] [facility] DO Work Phone: 07-14-2022 15:41-0500 Systolic blood pressure 130 mm[Hg] Phil Reynagalong Work Phone: [facility] [facility] DO Work Phone: 06-15-2022 [...] height 175.26 cm Phil Reynagalong Work Phone: [facility] [place] Work Phone: 04-03-2022 14:27-0500 Body mass index (BMI) [Ratio] 23.92 kg/m2 Phil Soliz Furlong Work Phone: [facility] [place] Work Phone: 04-03-2022 14:27-0500 Body surface area Derived from formula 1.89 m2 Phil Soliz Furlong Work Phone: [facility] [place] Work Phone: 04-03-2022 14:27-0500 Body weight 73.48 kg Phil Soliz Furlong Work Phone: [facility] Work Phone: 03-23-2022 09:29-0400 Diastolic blood pressure 89 mm[Hg] Karlie Craig Dept. of Dermatology 03-23-2022 09:29-0400 Systolic blood pressure 160 mm[Hg] Karlie Craig Dept[facility] of Dermatology 03-23-2022 08:29-0400 Diastolic blood pressure 89 mm[Hg] Florentino Hernadez Dept. of Dermatology 03-23-2022 08:29-0400 Systolic blood pressure 160 mm[Hg] Florentino Hernadez Dept. of Dermatology 12-13-2021 08:48-0400 Body height 175.26 cm Phil Reynagalong Work Phone: [facility] [employer] 250 DO Work Phone: 12-13-2021 08:48-0400 Body mass index (BMI) [Ratio] 23.63 kg/m2 Phil Soliz Simperiumlong Work Phone: [facility] [employer] 250 DO Work Phone: 12-13-2021 08:48-0400 Body surface area Derived from formula 1.88 m2 Phil Soliz Simperiumlong Work Phone: [facility] [employer] 250 DO Work Phone: 12-13-2021 08:48-0400 Body weight 72.58 kg Phil G Furlong Work Phone: [facility] [employer] 250 DO Work Phone: 12-13-2021 08:48-0400 Diastolic blood pressure 80 mm[Hg] Phil G Furlong Work Phone: [facility] [employer] 250 DO Work Phone: 12-13-2021 08:48-0400 Heart rate 80 /min Phil G Furlong Work Phone: [facility] [employer] 250 DO Work Phone: 12-13-2021 08:48-0400 Systolic blood pressure 128 mm[Hg] Phil G Furlong Work Phone: [facility] [employer] 250 DO Work Phone: 05-02-2021 08:27-0500 Body height 175.26 cm Phil G Furlong Work Phone: [facility] [employer] 250 DO Work Phone: 05-02-2021 08:27-0500 Body mass index (BMI) [Ratio] 24.37 kg/m2 Phil G Furlong Work Phone: [facility] [employer] 250 DO Work Phone: 05-02-2021 08:27-0500 Body surface area Derived from formula 1.9 m2 Phil G Furlong Work Phone: [facility] [employer] 250 DO Work Phone: 05-02-2021 08:27-0500 Body weight 74.84 kg Phil G Furlong Work Phone: [facility] [employer] 250 DO Work Phone: 05-02-2021 08:27-0500 Diastolic blood pressure 76 mm[Hg] Phil G Furlong Work Phone: [facility] 250 DO Work Phone: 05-02-2021 08:27-0500 Heart rate 81 /min Phil Morin Work Phone: [facility] [facility] DO Work Phone: 05-02-2021 08:27-0500 Systolic blood pressure 137 mm[Hg] Phil Morin Work Phone: [facility] 250 DO Work Phone: 1934 23:00-0500 >na< Karlie Craig Dept. of Dermato logy Encounters Encounter Date Encounter Type Care Provider Facility Start: 09-27-2023 End: 09-27-2023 ambulatory Renetta Anjum Carmenserafin Facility:[facility] Start: 09-27-2023 End: 09-27-2023 ambulatory DO Phil Morin Work Phone: [facility] Work Phone: Start: 09-27-2023 End: 09-27-2023 Patient encounter procedure DO Phil Morin Work Phone: [facility] Start: 08-23-2023 Orders Only Phil pool DO Work Phone: [facility] Start: 08-09-2023 Orders Only Phil pool DO Work Phone: [facility] Comment on above: Type 2 diabetes gamaliel itus without complication, without long- term current use of insulin ([facility]) (Primary Dx); Hypertensive 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 ([facility]) Start: 08-06-2023 End: 08-07-2023 ambulatory [facility] Start: 08-06-2023 End: 08-06-2023 ambulatory [facility] Start: 08-06-2023 End: 08-06-2023 Office outpatient visit 25 minutes Phil Morin DO Work Phone: [facility] Comment on above: Hypertensive heart a nd renal disease with (congestive) heart failure ([facility]) (Primary Dx); Hyperlipidemia, unspecified hyperlipidemia type; Stage 4 chronic kidney disease (CMS-HCC); Type 2 diabetes mellitus without complication, without long-term current use of insulin (CMS-HCC); Hyperparathyroidism (CMS-HCC); Malignant melanoma of scalp or neck ([facility]); Longstanding persistent atrial fibrillation (CMS-HCC); Paroxysmal atrial fibrillation (CMS-HCC); Microalbuminuric diabetic nephropathy ([facility]) Start: 07-18-2023 Orders Only Phil pool DO Work Phone: [facility] Comment on above: Longstanding persist ent atrial fibrillation ([facility]) (Primary Dx) Start: 06-28-2023 End: 06-28-2023 ambulatory Phil Morin Facility:[facility] Start: 06-28-2023 End: 06-28-2023 ambulatory DO Phil Morin Work Phone: [facility] Work Phone: Start: 06-28-2023 End: 06-28-2023 Patient encounter procedure DO Phil Morin Work Phone: [facility] Start: 05-29-2023 End: 05-29-2023 ambulatory PHIL MORIN [facility] Start: 05-29-2023 End: 05-29-2023 Office outpatient visit 25 minutes Phil Morin DO Work Phone: [facility] Comment on above: Paroxysmal atrial fi brillation ([facility]) (Primary Dx); Hypertensive 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 ([facility]); Essential hypertension; Hypothyroidism, unspecified type; Type 2 diabetes mellitus without complication, without long-term current use of insulin ([facility]); Arteriosclerotic vascular disease Start: 03-20-2023 End: 03-20-2023 ambulatory Phil Furlong Facility:[facility] Start: 03-20-2023 End: 03-20-2023 ambulatory DO Phil Furlong Work Phone: [facility] Work Phone: Start: 03-20-2023 End: 03-20-2023 Patient encounter procedure DO Phil Furlong Work Phone: [facility] Start: 01-12-2023 Office outpatient vi sit 25 minutes Phil G Furlong Work Phone: [facility] [facility] DO Work Phone: Start: 01-12-2023 Patient encounter procedure Phil Martínez Furlong Work Phone: [facility] [facility] DO Work Phone: Start: 01-12-[address] [facility] Facility[id number] Start: 12-04-2022 End: 12-04-[address] Phil Morin Facility:[id number] Start: 10-17-2022 End: 10-18-[address] JARON DAVALOS Facility:H1 Start: 09-15-2022 End: 09-16-[address] JARON DAVALOS Facility:H1 Start: 08-28-[address] Phil Morin Facility:[id number] Start: 08-28-2022 End: 08-28-2022 ambulatory DO Phil Furlong Work Phone: [facility] Work Phone: Start: 08-28-2022 End: 08-28-2022 Patient encounter procedure DO Philgirish Reynagalong Work Phone: [facility] Start: 08-15-2022 End: 08-16-[address] JARON DAVALOS Facility:H1 Start: 07-18-2022 End: 07-19-[address] JARON DAVALOS Facility:H1 Start: 07-14-2022 Office outpatient vi sit 25 minutes Phil Morin Work Phone: [facility] 250 DO Work Phone: Start: 07-14-[address] Phil Morin Facility: Start: 07-04-2022 End: 07-05-[address] JARON DAVALOS Facility:H1 Start: 07-03-2022 Karlie Craig Dept. of D ermatology Start: 06-16-2022 Gadiel Estevez Dept. of Dermatology Start: 06-16-2022 Telephone encounter Phil duron Work Phone: [facility] 250 DO Work Phone: Start: 06-15-2022 Florentino Hernadez Dept. of Dermatology Start: 06-15-[address] Phil Morin Facility:[id number] Start: 06-15-[address] Phil Morin Facility:[id number] Start: 06-09-2022 Rx Renewal Phil pool Work Phone: [facility] 250 DO Work Phone: Start: 06-07-2022 End: 06-08-[address] PHIL MORIN Facility:H1 Start: 06-07-2022 Florentino Hernadez Dept. of Dermatology Start: 06-06-2022 ambulatory Florentino Hernadez Facility: [id number] Start: 06-06-2022 ambulatory Florentino Hernadez Facility: [id number] Start: 05-17-[address] Phil Morin Facility:[id number] Start: 05-17-2022 End: 05-17-2022 ambulatory DO Phil Morin Work Phone: [facility] Work Phone: Start: 05-17-2022 End: 05-17-2022 Patient encounter procedure DO Phil Morin Work Phone: [facility] Start: 05-08-2022 End: 05-09-[address] PHIL MORIN Facility:H1 Start: 05-01-2022 Rx Renewal Phil pool Work Phone: [facility] DO Work Phone: Start: 04-07-2022 End: 04-08-[address] PHIL MORIN Facility:H1 Start: 04-04-2022 Karlie Craig Dept. of D ermatology Start: 04-03-2022 Office outpatient ne w 45 minutes Phil Morin Work Phone: [facility] Work Phone: Start: 04-03-2022 Patient encounter procedure Phil Morin Work Phone: [facility] Work Phone: Start: 04-03-[address] Ketan Iyer Facility:[id number] Start: 03-23-2022 Florentino Hernadez Dept. of Dermatology Start: 03-23-2022 ambulatory Florentino Hernadez Facility: [id number] Start: 03-23-2022 ambulatory Florentino Hernadez Facility: [id number] Start: 03-06-2022 End: 03-07-[address] PHIL MORIN Facility:H1 Start: 02-28-2022 Karlie Craig Dept. of D ermatology Start: 02-16-2022 ambulatory Florentino Hernadez Facility: [id number] Start: 02-15-[address] Phil Morin Facility:[id number] Start: 02-15-2022 End: 02-15-2022 ambulatory DO Phil oMrin Work Phone: [facility] Work Phone: Start: 02-15-2022 End: 02-15-2022 Patient encounter procedure DO Phil Morin Work Phone: [facility] [facility] Start: 02-03-2022 End: 02-04-[address] PHIL MORIN Facility:H1 Start: 01-02-2022 End: 01-03-[address] PHIL MORIN Facility:H1 Start: 12-13-2021 Office outpatient vi sit 25 minutes Phil Nicoleng Work Phone: [facility] 250 DO Work Phone: Start: 12-02-2021 End: 12-16-[address] PHIL MORIN Facility:H1 Start: 11-18-2021 End: 11-19-[address] PHIL MORIN Facility:H1 Start: 05-02-2021 Office outpatient vi sit 25 minutes Phil Martínez Coreyng Work Phone: [facility] 250 DO Work Phone: Procedures Date Procedure Procedure Detail Performing Clinician Start: 08-06-2023 Adult depression scr eening assessment Phil Reynagalong DO Work Phone: Start: 05-29-2023 Adult depression scr eening assessment Phil Nicoleng DO Work Phone: Start: 06-15-2022 Excision malignant l esion s/n/h/f/g 2.1-3.0 cm Florentino Hernadez Start: 06-06-2022 Excision malignant: Scalp/Neck/Hands/Feet/Genit adam - 4.0cm [id number] Florentino Hernadez Start: 06-06-2022 Excision malignant: Scalp/Neck/Hands/Feet/Genit adam - 4.0cm [id number] Florentino Hernadez Start: 03-23-2022 End: 03-23-2022 Exc b9 lesion mrgn xcp sk tg t/a/l 3.1-4.0 cm Florentino Hernadez Start: 02-28-2022 Karlie amaya [facility] Phil pool Work Phone: Cataract surgery Phil valdez Work Phone: History Of Prior Surgery Brayan Morin Work Phone: Total colonoscopy Phil duron Work Phone: Transurethral resect ion of bladder neoplasm Phil Morin Work Phone: Plan of Treatment Date Care Activity Detail Author Start: 08-11-2027 DTaP,Tdap and Td Vaccines (2 - Td or Tdap) DTaP,Tdap and Td Vaccines (2 - Td or Tdap) [facility] Start: 08-05-2024 Administration of varicella zoster vaccine Zoster (Shingles) Vaccine (1 of 2) [facility] Comment on above: Postponed from 09/24 (Patient Refused) Start: 08-05-2024 Adult BMI Screening Adult BMI Screen ing [facility] Start: 08-05-2024 Depression Screening Depression Scre ing [facility] Start: 08-05-2024 Tobacco Screening Tobacco Screening [facility] Start: 05-29-2024 Adult BMI Screening Adult BMI Screen ing [facility] Start: 05-29-2024 Depression Screening Depression Scre [facility] Start: 05-29-2024 Fall Risk Screening Fall Risk Screen ing [facility] Start: 05-29-2024 Tobacco Screening Tobacco Screening [facility] Start: 02-06-2024 End: 02-06-2024 Patient encounter procedure 02/06/2024 9:00 AM EDT Office Visit [facility] Internal Medicine - Family Medicine [address] [place] [address] Phil Morin DO [address] [facility] [place] [address] [facility] - Family Medicine Start: 01-20-2024 Influenza vaccination Influenza Vacc ine [facility] Start: 10-16-2023 FUV, Provider: Renetta Langston, Status: Pen, Time: 9:00 AM FUV, Provider: Renetta Langston, Status: Pen, Time: 9:00 AM [facility] Work Phone: Start: 08-06-2023 End: 08-06-2023 Patient encounter procedure 08/06/2023 10:10 AM EDT Office Visit [facility] Internal Medicine - Family Medicine [address] [place] [address] Phil Morin, DO [address], [place] [address] [facility] Internal Medicine - Family [facility] Start: 07-30-2023 End: 07-30-2023 Patient encounter procedure 07/30/2023 10:20 AM EDT Office Visit [facility] Internal Medicine - Family [facility] [address] [place] [address] Phil Morin, DO [address], [place] [address] [facility] Internal [facility] Start: 01-19-2023 COVID-19 Vaccine ( season) COVID-19 Vaccine ( season) [facility] Start: 01-12-2023 FUV, Provider: Renetta Langston, Status: Pen, Time: 2:10 PM FUV, Provider: Renetta Langston, Status: Pen, Time: 2:10 PM [facility] 250 DO Work Phone: Start: 07-14-2022 FUV, Provider: Renetta Langston, Status: Pen, Time: 3:10 PM FUV, Provider: Renetta Langston, Status: Pen, Time: 3:10 PM [facility] Work Phone: Start: 06-27-2022 FUV, Provider: Edwige Jacobsen, Status: Pen, Time: 9:10 AM FUV, Provider: Edwige Jacobsen, Status: Pen, Time: 9:10 AM [facility] 250 DO Work Phone: Start: 12-13-2021 FUV, Provider: Renetta Langston, Status: Pen, Time: 8:50 AM FUV, Provider: Renetta Langston, Status: Pen, Time: 8:50 AM [facility] 250 DO Work Phone: Start: 09-25-2015 Administration of varicella zoster vaccine Zoster (Shingles) Vaccine (1 of 2) [facility] Start: 1935 Medicare Annual Well ness Visit Medicare Annual Wellness [facility] End: 05-29-2024 Comprehensive metabolic 2000 panel - Serum or Plasma Comprehensive metabolic panel Lab Routine Hypertensive 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 ([facility]) 1 Occurrences starting 05/29/2023 until 05/29/2024 [facility] Comment on above: 1 Occurrences starti ng 05/29/2023 until 05/29/2024 End: 05-29-2024 Hemoglobin A1c/Hemoglobin.total in Blood Hemoglobin A1c Lab Routine Type 2 diabetes mellitus without complication, without long-term current use of insulin ([facility]) 1 Occurrences starting 05/29/2023 until 05/29/2024 [facility] Comment on above: 1 Occurrences starti ng 05/29/2023 until 05/29/2024 End: 05-29-2024 Lipid panel Lipid panel Lab Routine Arteriosclerotic vascular disease 1 Occurrences starting 05/29/2023 until 05/29/2024 [facility] Comment on above: 1 Occurrences starti ng 05/29/2023 until 05/29/2024 End: 05-29-2024 Protime & INR Protime & INR Lab Routine Paroxysmal atrial fibrillation ([facility]) 1 Occurrences starting 05/29/2023 until 05/29/2024 [facility] Work Phone: Comment on above: 1 Occurrences starti ng 05/29/2023 until 05/29/2024 End: 05-29-2024 Thyrotropin [Units/volume] in Serum or Plasma TSH Lab Routine Hypothyroidism, unspecified type 1 Occurrences starting 05/29/2023 until 05/29/2024 [facility] Comment on above: 1 Occurrences starti ng 05/29/2023 until 05/29/2024 Immunizations Immunization Date Immunization Notes Care Provider Raquel huntley 03-30-2023 Influenza, High-dose , Quadrivalent Phil Morin DO Work Phone: [facility] 03-30-2023 influenza virus vacc ine, unspecified formulation Philgirish Morin DO Work Phone: [facility] 02-16-2022 Fluzone High-Dose Quadrivalent 0.7 ML Intramuscular Suspension Prefilled Syringe Phil Morin Work Phone: [facility] [employer] 250 DO Work Phone: 01-28-2021 Fluad Quadrivalent 0 .5 ML Intramuscular Prefilled Syringe Phil Morin Work Phone: [facility] 250 DO Work Phone: 07-14-2020 Pfizer-BioNTech COVI D-19 Vacc 30 MCG/0.3ML Intramuscular Suspension [facility]roin [facility]: [facility] DO Work Phone: 07-01-2020 Pfizer-BioNTech COVI D-19 Vacc 30 MCG/0.3ML Intramuscular Suspension Phil Morin Work Phone: [facility] 06-16-2020 COVID-19, mRNA, LNP- S, PF, 30mcg/0.3mL Dose Phil Morin DO Work Phone: [facility] 06-11-2020 Pfizer-BioNTech COVI D-19 Vacc 30 MCG/0.3ML Intramuscular Suspension Phil Morin Work Phone: [facility] 250 DO Work Phone: 04-05-2020 pneumococcal polysaccharide vaccine, 23 valent Phil Nicole Work Phone: [place] [address] DO Work Phone: 02-23-2020 Fluad Quadrivalent 0 .5 ML Intramuscular Prefilled Syringe Phil Morin Work Phone: [place] [address] DO Work Phone: 02-19-2020 influenza, seasonal, injectable [facility] Work Phone: [place] [address] DO Work Phone: 07-20-2019 pneumococcal conjuga te vaccine, 13 valent Phil Soilz [place] Work Phone: [place] [address] DO Work Phone: 03-12-2019 pneumococcal conjuga te vaccine, 13 valent Phil Soliz [place] Work Phone: [place] [address] DO Work Phone: 03-12-2019 Seasonal trivalent influenza vaccine, adjuvanted, preservative free Phil Soliz [place] Work Phone: [place] [address] DO Work Phone: 02-18-2019 influenza virus vacc ine, unspecified formulation Phil Soliz [place] Work Phone: [place] [address] DO Work Phone: 03-04-2018 influenza virus vacc ine, unspecified formulation Phil Soliz [place] Work Phone: [place] [address] DO Work Phone: 08-10-2017 tetanus toxoid, redu edwin diphtheria toxoid, and acellular pertussis vaccine, adsorbed Phil Soliz [place] Work Phone: [place] [address] DO Work Phone: 03-21-2017 influenza virus vacc ine, unspecified formulation Phil Soliz [place] Work Phone: [place] [address] DO Work Phone: 03-13-2017 influenza, seasonal, injectable Phil G [place] Work Phone: [facility] 250 DO Work Phone: 02-21-2016 influenza, seasonal, injectable, preservative free Phil G [place] Work Phone: [place] [address] DO Work Phone: 02-19-2016 influenza virus vacc ine, unspecified formulation Phil Reynagalong Work Phone: [place] [address] DO Work Phone: 07-31-2015 zoster vaccine, live Phil Reynagalong Work Phone: [place] [address] DO Work Phone: 07-31-2015 zoster vaccine, unspecified formulation Phil Reynagayrn DO Work Phone: [facility] 02-18-2015 influenza virus vacc ine, unspecified formulation Phil Reynagalong Work Phone: [place] [address] DO Work Phone: 02-17-2015 influenza, seasonal, injectable, preservative free Phil Reynagalong DO Work Phone: [facility] 05-11-2014 pneumococcal polysaccharide vaccine, 23 valent Phil G Ronnelllong Work Phone: [place] [address] DO Work Phone: 02-18-2014 influenza virus vacc ine, unspecified formulation Phil G Ronnell[place] Work Phone: [place] [address] DO Work Phone: 04-03-2013 pneumococcal conjuga te vaccine, 13 valent Phil G [place] Work Phone: [place] [address] DO Work Phone: 02-18-2013 influenza virus vacc ine, unspecified formulation Phil Reynagalong Work Phone: [facility] 250 DO Work Phone: 02-18-2013 pneumococcal polysaccharide vaccine, 23 valent Phil Soliz [place] Work Phone: [place] [address] DO Work Phone: 12-20-2011 influenza virus vacc ine, unspecified formulation Phil Soliz [place] Work Phone: [place] [address] DO Work Phone: 05-21-2010 influenza virus vacc ine, unspecified formulation Phil Reynagalong Work Phone: [place] [address] DO Work Phone: 05-21-2009 influenza virus vacc ine, unspecified formulation Phil Reynagalong Work Phone: [place] [address] DO Work Phone: 05-21-2008 influenza virus vacc ine, unspecified formulation Phil Reynagalong Work Phone: [place] [address] DO Work Phone: 05-21-2007 pneumococcal polysaccharide vaccine, 23 valent Phil Soliz [place] Work Phone: [place] [address] DO Work Phone: 03-28-2002 pneumococcal polysaccharide vaccine, 23 valent Phil G Furlong Work Phone: [facility] 250 DO Work Phone: 03-21-2002 pneumococcal polysaccharide vaccine, 23 valent Phil Furlong DO Work Phone: [facility] 1935 pneumococcal conjuga te vaccine, 7 valent Karlie Craig [facility] D[facility]atology Payers Date Payer Category Payer Self-pay [id number] 2022 Medicare [employer] MEDICARE UHC MEDICARE ADVANTAGE PPO [id number] 2022-Present [phone] [address] [address] [place] [address] [id number] 1959 Private Health Insurance [id number] 1959 Private Health Insurance [id number] 1934 Unknown [id number] 2.16.840.1.993595.3.579. 2.593 1934 Unknown [id number] 2.16.840.1.429687.3.579. 2.593 1934 Unknown [id number] 2.16.840.1.423645.3.579. 2.593 1934 Unknown [id number] 2.16.840.1.940464.3.579. 2.593 1934 Unknown [id number] 2.16.840.1.243184.3.579. 2.593 1934 Unknown [id number] 2.16.840.1.497086.3.579. 2.593 1934 Unknown [id number] 2.16.840.1.647740.3.579. 2.593 1934 Unknown [id number] 2.16.840.1.570195.3.579. 2.593 1934 Unknown [id number] 2.16.840.1.804631.3.579. 2.593 1934 Unknown [id number] 2.16.840.1.661993.3.579. 2.593 1934 Unknown [id number] 2.16.840.1.069853.3.579. 2.593 1934 Unknown [id number] 2.16840.1.520181.3.579. 2.593 1934 Unknown [id number] 2.16840.1.750074.3.579. 2.593 1934 Unknown [id number] 2.840.1.301916.3.579. 2.356 1934 Unknown [id number] 2.840.1.672181.3.579. 2.356 1934 Unknown [id number] 2.840.1.770186.3.579. 2.356 1934 Unknown [id number] 2.840.1.194458.3.579. 2.356 1934 Unknown [id number] 2.840.1.203238.3.579. 2.356 1934 Unknown [id number] 2.840.1.996012.3.579. 2.356 1934 Unknown [id number] 2.840.1.832025.3.579. 2.356 1934 Unknown [id number] 2.840.1.044710.3.579. 2.356 1934 Unknown [id number] 2.840.1.088081.3.579. 2.356 1934 Unknown [id number] 2.840.1.992590.3.579. 2.356 1934 Unknown [id number] 2.840.1.745751.3.579. 2.356 1934 Unknown [id number] 2.16.840.1.999856.3.579. 2.356 1934 Unknown [id number] 2.16.840.1.506166.3.579. 2.356 1934 Unknown [id number] 2.16.840.1.623929.3.579. 2.356 1934 Unknown [id number] 2.16.840.1.341136.3.579. 2.1286 1934 Unknown [id number] 2.16.840.1.168508.3.579. 2.1286 1934 Unknown [id number] 2.16.840.1.107533.3.579. 2.1286 Medicare Medicare [id number] Medicare Medicare [id number] Unknown Unknown Dean BC/BS [id number] Unknown [id number] 2.840.1.079956.3.579. 2.531 Unknown [id number] 2.16840.1.020870.3.579. 2.531 Unknown [id number] 2.16840.1.189718.3.579. 2.531 Unknown [id number] 2.840.1.058654.3.579. 2.531 Social History Date Type Detail Facility Start: 09-19-2022 End: 05-29-2023 No alcohol use No alcohol use [place] [address] DO Work Phone: Comment on above: 2 cups coffee daily; Start: 07-19-2019 End: 03-31-2022 Tobacco smoking status NHIS Never smoked tobacco (finding) [facility] Start: 1935 End: 1934 Sex Assigned At Male [facility] Start: 02-28-2022 Dept. of D ermatology Start: 03-31-2022 Tobacco use and exposure Smokeless tobacco [facility]-user [facility] Start: 05-29-2023 End: 08-06-2023 Alcohol intake Ex-drinker (finding) [facility] Start: 09-19-2022 End: 05-29-2023 [facility] Utilities [facility] tem Has the [employer], or [employer] threatened to shut off services in your home in past 12Mo No [employer] [facility] Are you now , , , , never or living with a partner? [employer] How often to you hav e a drink containing alcohol? Never [facility] How many standard drinks containing alcohol do you have on a typical day? Patient does not drink [facility] Do you feel stress - tense, restless, nervous, or anxious, or unable to sleep at night because your mind is troubled all the time - these days [OSQ] Not at all [employer] Start: 1935 Sex Assigned At Not on file P [employer] [facility] Goals Date Patient Goal Desired Activity /State Clinical Notes 05-29-2023 to 08-06-2023 Phil Morin, DO - 08/06/2023 10:10 AM EDTPhil Morin, DO - 05/29/2023 4:20 PM EST Note Date & Type Note Facility 08-06-2023 History of Present illness Narrative Subjective Patient ID: Rio Jacome is a 87 y.o. male. Mr. [...] normal. Assessment/Plan Rio was seen today for hypertension and hyperlipidemia. Diagnoses and all orders for this visit: Hypertensive 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 ([facility]) - TSH; Future - Comprehensive metabolic panel; Future Blood pressure at goal. Continue current regimen. Check CMP and TSH. Hyperlipidemia, unspecified hyperlipidemia type - Lipid panel; Future Check lipid panel Stage 4 chronic kidney disease ([facility]) TSH; Future Check TSH and CMP. Type 2 diabetes mellitus without complication, without long-term current use of insulin ([facility]) - Hemoglobin A1c; Future - TSH; Future Check A1c. Hyperparathyroidism ([facility]) Check kidney function test. Malignant melanoma of scalp or neck ([facility]) He does not want to go back to see the specialist. I am not sure what surgery the specialist had planned Longstanding persistent atrial fibrillation ([facility]) Seems to be in sinus rhythm now. Continue Eliquis Paroxysmal atrial fibrillation ([facility]) Microalbuminuric diabetic nephropathy ([facility]) Check labs documented in this encounter [facility] 05-29-2023 History of Present illness Narrative Subjective [...] orders for this visit: Paroxysmal atrial fibrillation ([facility]) - Protime & INR; Future New order for protime and INR given to the patient. I will also fax to the [facility]. Hypertensive heart and renal disease with [...] without long-term current use of insulin (CMS-HCC) - Hemoglobin A1c; Future Check A1c Arteriosclerotic vascular disease - Lipid panel; Future Check lipid panel documented in this encounter [facility] [employer] [facility] Evaluation note No assessment inform ation available [facility] Work Phone: Evaluation note N/A Dept. of Dermato logy Evaluation note Diagnosis Paroxysmal atrial fibrillation ([facility])- Primary Atrial fibrillation 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) Essential hypertension Unspecified essential hypertension Hypothyroidism, unspecified type Type 2 diabetes mellitus without complication, without long-term current use of insulin ([facility]) Arteriosclerotic vascular disease Generalized and unspecified atherosclerosis documented in this encounter [facility] SystemEvaluation note* Diagnosis Longstanding persistent atrial fibrillation ([facility] Primary documented in this encounter [facility] SystemEvaluation note* Diagnosis Hypertensive heart and renal [...] diabetic nephropathy (CMS-HCC) documented in this encounter [facility] SystemEvaluation note* Diagnosis Type 2 diabetes mellitus without complication, without long-term current use of insulin (CMS-HCC)- Primary 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) documented in this encounter [facility] SystemHistory of Present illness Narrative* Patient returns [...] the above we will continue as is. [facility] [employer] DO Work Phone: History of Present illness [...] the above we will continue as is. [facility] [employer] DO Work Phone: History of Present illness [...] the above we suggest continued [facility] [employer] DO Work Phone: History of Present illness [...] significant cardiac hx with decreased cardiac function [facility] Work Phone: History of Present illness NarrativePatient [...] we believe his cardiac status to be stable.[facility] DO Work Phone: History of Present illness [...] we suggested continued therapy as before without change.[facility] 250 DO Work Phone: InstructionsNot on filedocumented in this encounter [facility] SystemInstructionsNot on filedocumented in this encounter [facility] SystemInstructionsNot on filedocumented in this encounter [employer] SystemInstructionsNot on filedocumented in this encounter [facility] SystemReason for referral (narrative)* Name Reason for [...] acute myoc ardial infarction: Father(V17.3, Z82.49) Status:Active Relationship Condition Age at Onset Recorded Date/T stacey father Unknown Heart disease Unknown Not Specified Unknown Diabetes mellitus Unknown Malignant neoplasm Unknown Advance Directives No Advanced Directives Records Found [...] section and content) DATE CREATED AUTHOR 08/08/2019 [facility] DATE CREATED AUTHOR AUTHOR'S ORGANIZ ATION 02/27/2020 [facility] DATE CREATED AUTHOR AUTHOR'S ORGANIZ ATION 08/24/2021 [facility] DATE CREATED AUTHOR AUTHOR'S ORGANIZ ATION 10/27/2022 [facility] DATE CREATED AUTHOR AUTHOR'S ORGANIZ ATION 01/13/2023 [facility] DATE CREATED AUTHOR AUTHOR'S ORGANIZ ATION 01/14/2023 [employer] DATE CREATED AUTHOR AUTHOR'S ORGANIZ ATION 08/06/2023 [facility] DATE CREATED AUTHOR AUTHOR'S ORGANIZ ATION 08/07/2023 [facility] DATE CREATED AUTHOR AUTHOR'S ORGANIZ ATION 10/09/2023 [facility] Care Teams (unrecognized sec tion and content) Team Status: Active Member Role Status Dates Phil Morin DO Primary Care Provider Active Team Status: Inactive Member Role Status Dates Phil Morin DO Primary Care Provider Active Renetta Langston MD Attending Provider Active Clinical Applications Specialist Relationship Specialty Start Date End Date Phil Morin DO [address] [facility] [facility] [place] [address] PCP - General Family Medicine 03/07/22 Team Status: Inactive Member Role Status Dates Phil Morin DO Primary Care Provider Active Start: June 28, 2023 End: June 28, 2023 Renetta Langston MD Attending Provider Active Start: June 28, 2023 End: June 28, 2023 Clinical Applications Specialist Relationship Specialty Start Date End Date Phil Morin DO [address], [place] [address] PCP - General Family Medicine 03/07/22 Clinical Applications Specialist Relationship Specialty Start Date End Date Phil Morin DO [address], [place] [address] PCP - General Family Medicine 03/07/22 Clinical Applications Specialist Relationship Specialty Start Date End Date Phil Morin DO [address], [place] [address] PCP - General Family Medicine 03/07/22 Clinical Applications Specialist Relationship Specialty Start Date End Date Phil Morin DO [address], [place] [address] PCP - General Family Medicine 03/07/22 Team Status: Inactive Member Role Status Dates Phil Morin DO Primary Care Provider Active Start: September 27, 2023 End: September 27, 2023 Renetta Langston MD Attending Provider Active Start: September 27, 2023 End: September 27, 2023 Goals (unrecognized section and content) Goals may [...] this encounterNot on filedocumented as of this encounterGoals may be documented in an alternate section Reason for Visit (unrecogniz ed section and [...] BE BASED ON THE PRIMARY CLINICAL RECORDS. [employer] provides no warranty or guarantee of the accuracy or completeness of information in this document.
[2023-11-02 09:43] LABS: INR 2.56; Prothrombin Time 24.7 sec (9.0-11.6)
== END 2023-11-02 08:31 | disposition home or self-care (01) ==
LOC: LAB 08:31
PROVIDERS: PCP Family Medicine; Visit Provider Family Medicine
DX: I48.11 Longstanding persistent atrial fibrillation (principal)
CPT/HCPCS: 36415; 85610

== ENCOUNTER 2023-12-03 08:34 | Outpatient (OUT) | payer MEDICARE, SELFPAY ==
[2023-12-03 10:42] LABS: INR 2.52; Prothrombin Time 24.4 sec (9.0-11.6)
== END 2023-12-03 08:35 | disposition home or self-care (01) ==
LOC: LAB 08:36
PROVIDERS: PCP Family Medicine; Visit Provider Family Medicine
DX: I48.11 Longstanding persistent atrial fibrillation (principal)
CPT/HCPCS: 36415; 85610

== ENCOUNTER 2024-01-03 08:40 | Outpatient (OUT) | payer MEDICARE, SELFPAY ==
--- OUTSIDE RECORDS SUMMARY | 2024-01-03 08:47 | XMS_ITS | CCD ---
Author Organization [facility] Care Team Providers Care Regional Director Name Role Phone Phil Morin Unavailable Unavailable Unavailable Ronnelllong, DO Villarreal Primary Care Provider [phone] MD Renetta Langston Attending Provider Karlie Craig Unavailable Unavailable Florentino Hernadez Unavailable Unavailable Furlong, DO Villarreal Primary Care Provider MD Renetta Langston Attending Provider Gadiel Estevez Unavailable Unavailable Furlong, DO Phil Primary Care Provider [phone] MD Renetta Langston Attending Provider SUSANNAH, DR [...] Primary Care Unavailable KUNS, DR JARON Roger Admitting Unavailable KUNShalonda, DR [...] JARON Roger Attending Unavailable KUNShalonda, DR JARON Rgoer Admitting Unavailable FURLONG, DR PHIL Soliz Primary [...] DR PHIL Soliz Consulting Unavailable FURLONG, DR PIHL Soliz Admitting Unavailable FURLONG, DR PHIL Soliz [...] Referring Unavaila ble Furlong, Dr. Phil Forrest [facility] Care Unava ilable Furlong, Dr. Phil Forrest [facility] Care Unava ilable Furlong, Dr. Phil Forrest Primary Care Unava ilable Furlong, Dr. Phil Forrest Primary Care Unava ilable Furlong, Dr. Phil Forrest Primary Care Unava ilable Florentino Hernadez Referring Unavailable Honda, Dr. Rigo Webster Attending Unavailabl e Furlong, Dr. Phil Forrest Primary Care Unava ilable Furlong, Dr. Phil Forrest Primary Care Unava ilable Florentino Hernadez Referring Unavailable Honda, Dr. Riog Webster Attending Unavailabl e Florentino Hernadez Referring [...] Care Provider MD Renetta Langston Attending Provider Furlong Phil PATEL Primary Care Provider Furdestinyng, DO Phil Primary Care Provider MD Renetta Langston Attending Provider FURLONG, PHIL G Attending Unavailable FURLONG, PHIL G Referring Unavailable FURLONG, PHIL G Primary Care Unavailable FURLONG, PHIL G Attending Unavailable FURLONG, PHIL G Referring Unavailable FURLONG, PHIL G Primary Care Unavailable FURLONG, PHIL G Referring Unavailable FURLONG, PHIL G Primary Care Unavailable Furlong, DO Phil Primary Care Provider [phone] MD Renetta Langston Attending Provider Furdestinyng Phil PATEL Primary Care Provider RENETTA LANGSTON Attending Unavailable PHIL MORIN Primary Care Unavailab le Furlong, DO Phil Primary Care Provider MD Renetta Langston [facility] Renetta Langston Admitting Unavail able Renetta Langston Attending Unavail able [place], Phil Primary Care Unavailable Renetta Langston Admitting Unavail able Renetta Langston Attending Unavail able Renetta Langston Admitting Unavail able Renetta Langston Attending Unavail able [place], Phil Primary Care Unavailable Renetta Langston Attending Unavail able Renetta Langston Admitting Unavail able [facility] Primary [facility] Unavailable Allergies Allergy Classification Reported Allergen(s) Allergy Type Date of Onset Reaction(s) Facility (19 sources) Aspirin; Translations: [aspirin] Drug Allergy 2 Other (See Comments), GI bleeding -[facility] 250 DO Work Phone: (1 source) No Alert Propensity to adverse reactions to drug 2 [facility] Medications Current Medications Medication Drug Class(es) Dates Sig (Normalized) Sig (Original) carvedilol 6.25 mg oral tablet (20 sources) alpha-Adrenergic Gen, beta-Adrenergic Gen Start: 11-05-2023 take 1 tablet by mouth twice daily carvedilol (Coreg) 6.25 mg tablet Indications: Ischemic cardiomyopathy Take 1 tablet (6.25 mg) by mouth 2 times daily (morning and late afternoon). 180 tablet 3 11/05/2023 Active Start: 04-24-2014 End: 11-05-2023 Carvedilol Active TABLET Jun 1:00am eplerenone 25 mg oral tablet (20 sources) Aldosterone Antagonist Start: 04-24-2014 Epleren one Active TABLET July 19, 2019 1:00am esomeprazole 20 mg delayed release oral capsule (5 sources) Proton Pump Inhibitor esomeprazo le (NexIUM) 20 mg capsule daily as needed. 0 Active fluticasone propionate 0.05 mg/actuat metered dose nasal spray (12 sources) Corticosteroid Start: 07-19-19 20 Fluticasone Propionate Active July 19, 2019 1:00am furosemide 20 mg oral tablet (19 sources) Loop Diuretic Start: 11-17-19 End: 11-05-19 25 take 1 tablet by mouth once daily furosemide (Lasix) 20 mg tablet Indications: Ischemic cardiomyopathy Take 1 tablet (20 mg) by mouth once daily. 90 tablet 3 11/05/2023 11/04/2024 Active lisinopril 2.5 mg oral tablet (20 sources) Angiotensin Converting Enzyme Inhibitor Start: 11-05-19 take 1 tablet by mouth once daily lisinopril 2.5 mg tablet Indications: Essential hypertension Take 1 tablet (2.5 mg) by mouth once daily. 90 tablet 3 11/05/2023 Active Start: 07-19-2019 End: 11-05-2023 Lisinopril Active TABLET Feb [facility] 2019 1:00am rosuvastatin calcium 20 mg oral tablet (20 sources) HMG-CoA Reductase Inhibitor Start: 11-05-2023 take 1 tablet by mouth once daily rosuvastatin (Crestor) 20 mg tablet Indications: Arteriosclerotic cardiovascular disease (ASCVD) , Mixed hyperlipidemia Take 1 tablet (20 mg) by mouth once daily. 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 90 tablet 1 08/09/2023 08/23/2023 Discontinued (Patient Never Started This Medication) Magnesium (3 sources) take 1 tablet by [...] Onset: 2 03-07-2022 Chronic Biliary tract disease (12 sources) Biliary colic; Translations: [Calculus of bile [...] Translations: [Paroxysmal ventricular tachycardia] Onset: 2 Chronic Chronic kidney disease (13 sources) Chronic kidney disease; Translations: [Chronic kidney disease, unspecified] Onset: 6 03-07-2022 Chronic Conduction disorders (17 sources) Automatic implantable cardiac defibrillator in situ; Translations: [Automatic implantable cardiac defibrillator in situ] Onset: 3 11-05-2023 Chronic Coronary atherosclerosis and other heart disease [...] caused by tuberculosis or sexually transmitted disease) (20 sources) Cardiomyopathy; Translations: [Other primary cardiomyopathies] Onset: [...] Onset: 8 05-29-2023 Chronic Transient cerebral ischemia (18 sources) Transient cerebral ischemia; Translations: [Unspecified transient cerebral ischemia] Onset: 2 05-29-2023 Chronic Unclassified (1 source) Longstanding persistent atrial fibrillation; Translations: [Longstanding persistent atrial fibrillation] Onset: 3 Unclassified (1 source) concerns about meds and blood pressure Onset: 4 Unclassified (1 source) Ventricular tachycardia, unspecified (Multi); Translations: [Ventricular tachycardia, unspecified (Multi)] Onset: 3 Unclassified (1 source) Ventricular tachycardia, [...] Classification Problem Date Documented Da te Episodic/Chronic Cardiac dysrhythmias (13 sources) Palpitations; Translations: [Palpitations] Onset: 03-01-2023 03-01-2023 Episodic Crushing injury or internal injury (5 sources) Perinephric hematoma; Translations: [Minor contusion of unspecified kidney, initial encounter] Onset: 03-07-2022 03-07-2022 Episodic Mood disorders (5 sources) Mood disorders Onset: 05-29-2023 Resolved: 08-06-2023 05-29-2023 Other aftercare (1 source) Taking high risk medication; Translations: [Other mcc (current) drug therapy] Onset: 03-01-2023 03-01-2023 Episodic Other gastrointestinal disorders (5 sources) Nontraumatic hemoperitoneum; Translations: [Nontraumatic retroperitoneal hematoma] Onset: 05-29-2015 03-07-2022 Episodic Other lower respiratory disease (18 sources) Dyspnea on exertion; Translations: [Shortness of [...] Never smoked tobacco; Translations: [Never a smoker] Unclassified (1 source) Onset: 11-05-2023 11-05-2023 Unclassified (1 source) Ventricular tachycardia, unspecified (Multi); Translations: [Ventricular tachycardia, unspecified (Multi)] Onset: 11-05-2023 Results Test Name Value Interpretation Reference Range Facility COMPREHENSIVE METABOLIC PANE Donato 08-06-2023 Albumin [Mass/Vol] 4.2 g/dL Normal 3.2-5.3 [facility] Comment on above: Performed By: #### Gorge DELANEY, 87440-2, 6-3 #### [facility] ([id number]) [address], [address] [place] [address] ALP [Catalytic activity/Vol] 77 U/L Normal 39-130 [facility] Comment on above: Performed By: #### Gorge DELANEY, 49354-9, 6-3 #### [facility] ([id number]) [address], [address] [place] [address] ALT [Catalytic activity/Vol] 11 U/L Normal 0-40 [facility] Comment on above: Performed By: #### Gorge DELANEY, 84566-1, 3015-3 #### [facility] ([id number]) [address], [address] [place] [address] Anion gap [Moles/Vol] 8 mmol/L Normal 5-15 [facility] Comment on above: Performed By: #### Gorge DELANEY, 41798-1, 6-3 #### [facility] ([id number]) [address], [address] [place] [address] AST [Catalytic activity/Vol] 19 U/L Normal 0-41 [facility] Comment on above: Performed By: #### Gorge DELANEY, 46760-5, 6-3 #### [facility] ([id number]) [address], [address] [place] [address] Bilirubin [Mass/Vol] 0.5 mg/dL Normal 0.3-1.2 [facility] Comment on above: Performed By: #### Gorge DELANEY, 61407-7, 6-3 #### [facility] ([id number]) [address], [address] [place] [address] Calcium [Mass/Vol] 9.1 mg/dL Normal 8.5-10.5 [facility] Comment on above: Performed By: #### C RHETT, 22061-5, 3015-3 #### [facility] ([id number]) [address], [address] [place] [address] Chloride [Moles/Vol] 106 mmol/L Normal 98-109 [facility] Comment on above: Performed By: #### Gorge DELANEY, 27710-1, 3015-3 #### [facility] ([id number]) [address], [address] [place] [address] CO2 [Moles/Vol] 26 mmol/L Normal 22-32 [facility] Comment on above: Performed By: #### Gorge DELANEY, 01114-4, 3015-3 #### [facility] ([id number]) [address], [address] [place] [address] Creatinine [Mass/Vol] 2.12 mg/dL High 0.60-1.30 [facility] Comment on above: Result Comment: METH OD TRACEABLE TO IDMS STANDARD Performed By: #### Gorge DELANEY, 13334-2, 3015-3 #### [facility] ([id number]) [address], [address] [place] [address] GFR/1.73 sq M.predicted among non-blacks MDRD (S/P/Bld) [Vol rate/Area] 29 mL/min/{1.73_m2} Low >59 [facility] Comment on above: Result Comment: Reported eGFR is based on the CKD-EPI 2020 equation that does not use a race coefficient. Performed By: #### Gorge DELANEY, 94086-4, 3015-3 #### [facility] ([id number]) [address], [address] [place] [address] Glucose [Mass/Vol] 113 mg/dL High 65-99 [facility] Comment on above: Performed By: #### Gorge DELANEY, 98483-4, 6-3 #### [facility] ([id number]) [address], [address] [place] [address] Potassium [Moles/Vol] 4.8 mmol/L Normal 3.5-5.0 [facility] Comment on above: Performed By: #### Gorge DELANEY, 10676-7, 6-3 #### [facility] ([id number]) [address], [address] [place] [address] Protein [Mass/Vol] 7.0 g/dL Normal 6.0-8.0 [facility] Comment on above: Performed By: #### Gorge DELANEY, 47529-3, 6-3 #### [facility] ([id number]) [address], [address] [place] [address] Sodium [Moles/Vol] 140 mmol/L Normal 134-146 [facility] Comment on above: Performed By: #### Gorge DELANEY, 79640-6, 6-3 #### [facility] ([id number]) [address], [address] [place] [address] Urea nitrogen [Mass/Vol] 24 mg/dL Normal 5-27 [facility] Comment on above: Performed By: #### Gorge DELANEY, 03611-2, 6-3 #### [facility] ([id number]) [address], [address] [place] [address] Comprehensive metabolic pane donato 08-06-2023 Albumin [Mass/Vol] 4.2 g/dL 3.2 - 5.3 g/dL [facility] ALP [Catalytic activity/Vol] 77 U/L 39 - 130 U/L [facility] ALT No additional P-5'-P [Catalytic activity/Vol] 11 U/L 0 - 40 U/L [facility] Anion gap [Moles/Vol] 8 mmol/L 5 - 15 mmol/L [facility] AST [Catalytic activity/Vol] 19 U/L 0 - 41 U/L [facility] Bilirubin [Mass/Vol] 0.5 mg/dL 0.3 - 1 .2 mg/dL [facility] Calcium [Mass/Vol] 9.1 mg/dL 8.5 - 10. 5 mg/dL [facility] Chloride [Moles/Vol] 106 mmol/L 98 - 10 9 mmol/L [facility] CO2 [Moles/Vol] 26 mmol/L 22 - 32 mmol/L [facility] Creatinine [Mass/Vol] 2.12 mg/dL High 0.60 - 1.30 mg/dL [facility] Comment on above: METHOD TRACEABLE TO [facility] STANDARD eGFR (CKD-EPI)non-race dependent 29 Low - PINF [facility] Comment on above: Reported eGFR is based on the CKD-EPI 2020 equation that does not use a race coefficient. Glucose [Mass/Vol] 113 mg/dL High 65 - 99 mg/dL [facility] Potassium [Moles/Vol] 4.8 mmol/L 3.5 - 5.0 mmol/L [facility] Protein [Mass/Vol] 7.0 g/dL 6.0 - 8.0 g/dL [facility] Sodium [Moles/Vol] 140 mmol/L 134 - 146 mmol/L [facility] Urea nitrogen [Mass/Vol] 24 mg/dL 5 - 27 mg/dL [facility] HGB A1C (GLYCO-HGB)on 2023 Glucose [Mass/Vol] 140 mg/dL Normal [facility] Comment on above: Performed By: #### C , 29749-7, 3016-3 #### [facility] ([id number]) [address], [address] [place] [address] HbA1c (Bld) [Mass fraction] 6.5 % High 4.4-5.6 [facility] Comment on above: Result Comment: NOTE ADA Guidelines Result HgbA1c Normal : less than 5.7 % Prediabetes : 5.7 % to 6.4 % Diabetes : > 6.4 % Use with caution in patients with abnormal hemoglobin variants as the half-life of red blood cells and in vivo glycation rates are affected. Performed By: #### C , 42713-4, 3016-3 #### [facility] ([id number]) [address], [address] [place] [address] Hemoglobin A1con 08-06-2023 Average glucose Estimated from glycated hemoglobin (Bld) [Mass/Vol] 140 mg/dL [facility] HbA1c (Bld) [Mass fraction] 6.5 % High 4.4 - 5.6 % [facility] Comment on above: NOTE ADA Guidelines Result HgbA1c Normal : less than 5.7 % Prediabetes : 5.7 % to 6.4 % Diabetes : > 6.4 % Use with caution in patients with abnormal hemoglobin variants as the half-life of red blood cells and in vivo glycation rates are affected. Interpretation and review of laboratory results Abnormal [facility] Lipid 1996 panelon Cholesterol [Mass/Vol] 91 mg/dL Low 150 - 200 mg/dL [facility] Cholesterol in HDL [Mass/Vol] 39 mg/dL Low 39 - PINF mg/dL [facility] Comment on above: HDL <40 mg/dL - High Risk HDL > or = 40mg/dL- Desirable HDL >60 mg/dL - Negative Risk Cholesterol in LDL [Mass/Vol] 18 mg/dL NINF - 130 mg/dL [facility] Comment on above: LDL <100 mg/dL - Desirable LDL >160 mg/dL - High Risk Cholesterol in VLDL [Mass/Vol] 34 mg/dL High 0 - 30 mg/dL [facility] Cholesterol.total/Chol esterol in HDL [Mass ratio] 2.3 {ratio} 1.0 - 5.0 [facility] Triglyceride [Mass/Vol] 168 mg/dL High 27 - 150 mg/dL [facility] Cholesterol [Mass/Vol] 91 mg/dL Low 150-200 [facility] Comment on above: Performed By: #### Gorge DELANEY, 83268-6, 3016-3 #### [facility] ([id number]) [address], [address] [place] [address] Cholesterol in HDL [Mass/Vol] 39 mg/dL Low >39 [facility] Comment on above: Result Comment: HDL <40 mg/dL - High Risk HDL > or = 40mg/dL- Desirable HDL >60 mg/dL - Negative Risk Performed By: ###[place], [address]-7, 6-3 #### [facility] ([id number]) [address], [address] [place] [address] Cholesterol in LDL [Mass/Vol] 18 mg/dL Normal <130 [facility] Comment on above: Result Comment: LDL <100 mg/dL - Desirable LDL >160 mg/dL - High Risk Performed By: ###[place], [address]1628-1, 6-3 #### [facility] ([id number]) [address], [address] [place] [address] Cholesterol in VLDL [Mass/Vol] 34 mg/dL High 0-30 [facility] Comment on above: Performed By: #### Goreg DELANEY, 01170-2, 6-3 #### [facility] ([id number]) [address], [address] [place] [address] CHOLESTEROL:HDL 2.3 Normal 1.0-5.0 [facility] Comment on above: Performed By: #### Gorge DELANEY, 04425-6, 3016-3 #### [facility] ([id number]) [address], [address] [place] [address] Triglyceride [Mass/Vol] 168 mg/dL High 27-150 [facility] Comment on above: Performed By: #### Gorge DELANEY, 26929-6, 3016-3 #### [facility] ([id number]) [address], [address] [place] [address] No Panel Informationon 08-05 Interpretation and review of laboratory results Abnormal [facility] TSHon 08-06-2023 TSH Qn 3.12 m[IU]/L [facility] TSH Qnon 08-06-2023 [facility] TSH 3.12 uIU/mL Normal 0.49-4.67 [facility] Comment on above: Performed By: #### Gorge DELANEY, 41015-1, 3016-3 #### [facility] ([id number]) [address], [address] [place] [address] Protime & INRon 07-18-2023 External Inr 2.02 [facility] External Protime 20.6 [employer] [...] a smoker Tobacco Use Screening; Status:Complete; Done: [id number] Ventricular tachycardia IO EKG Electrocardiogram- 12 Lead; Status:Complete; Done: [id number] Patient Instructions Please bring all medicines, vitamins, [...] negative for complaint. Vitals Vital Signs Recorded: [id number] 02:17PM Heart Rate72, Apical Vksjfvln105, RUE, Sitting Uiuhipyac52, RUE, Sitting Height5 ft 9 in Xjvbub784 lb BMI Hbtixrdpej06.78 kg/m2 BSA Calculated1.88 Tobacco Useb) No Falls [...] Jan 13 2023 2:45PM EST (Author) Normal [facility] Tobacco Screening.on 023 Fall risk assessment a) No falls within the last year [facility] 250 DO Work Phone: Tobacco use status CP b) No [facility] 250 DO Work Phone: PROTIMEon 10-17-2022 INR Coag (PPP) [Relative time] 2.38 {INR} Normal [facility] Comment on above: Performed By: #### P T #### [facility] [address] [place] [address] Dr. Sariah Boyle INR GUIDELINES SEE BELOW Normal [facility] Comment on above: Result Comment: NHUNG RED INR: 2.0 - 3.0 CONDITIONS NOT LISTED BELOW 2.5 - 3.5 FOR PROSTHETIC HEART VALVE REPLACEMENT 2.5 - 3.5 RECURRENT THROMBOSIS Performed By: #### P T #### [facility] [address] [place] [address] Dr. Sariah Boyle PT Coag (PPP) [Time] 24.0 s Critically high 9.0-11.6 [facility] Comment on above: Performed By: #### P T #### [facility] [address] [place] [address] Dr. Sariah Boyle PROTIMEon 09-15-2022 INR Coag (PPP) [Relative time] 2.18 {INR} Normal [facility] Comment on above: Performed By: #### P T #### [facility] [address] [place] [address] Dr. Sariah Boyle INR GUIDELINES SEE BELOW Normal [facility] Comment on above: Result Comment: NHUNG RED INR: 2.0 - 3.0 CONDITIONS NOT LISTED BELOW 2.5 - 3.5 FOR PROSTHETIC HEART VALVE REPLACEMENT 2.5 - 3.5 RECURRENT THROMBOSIS Performed By: #### P T #### [facility] [address] [place] [address] Dr. Sariah Boyle PT Coag (PPP) [Time] 22.1 s Critically high 9.0-11.6 [facility] Comment on above: Performed By: #### P T #### [facility] [address] [place] [address] Dr. Sariah Boyle PROTIMEon 08-15-2022 INR Coag (PPP) [Relative time] 2.44 {INR} Normal [facility] Comment on above: Performed By: #### P T #### [facility] [address] [place] [address] Dr. Sariah Boyle INR GUIDELINES SEE BELOW Normal [facility] Comment on above: Result Comment: NHUNG RED INR: 2.0 - 3.0 CONDITIONS NOT LISTED BELOW 2.5 - 3.5 FOR PROSTHETIC HEART VALVE REPLACEMENT 2.5 - 3.5 RECURRENT THROMBOSIS Performed By: #### P T #### [facility] [address] [place] [address] Dr. Sariah Boyle PT Coag (PPP) [Time] 24.6 s Critically high 9.0-11.6 [facility] Comment on above: Performed By: #### P T #### [facility] [address] [place] [address] Dr. Sariah Boyle PROTIMEon 07-18-2022 INR Coag (PPP) [Relative time] 2.33 {INR} Normal [facility] Comment on above: Performed By: #### P T #### [facility] [address] [place] [address] Dr. Sariah Boyle INR GUIDELINES SEE BELOW Normal [facility] Comment on above: Result Comment: NHUNG RED INR: 2.0 - 3.0 CONDITIONS NOT LISTED BELOW 2.5 - 3.5 FOR PROSTHETIC HEART VALVE REPLACEMENT 2.5 - 3.5 RECURRENT THROMBOSIS Performed By: #### P T #### [facility] [address] [place] [address] Dr. Sariah Boyle PT Coag (PPP) [Time] 23.5 s Critically high 9.0-11.6 [facility] Comment on above: Performed By: #### P T #### [facility] [address] [place] [address] Dr. Sariah Boyle Office Visit (Cardiology)on 07-14-2022 [...] negative for complaint. Vitals Vital Signs Recorded: [id number] 03:41PM Heart Rate80, L Radial Senenwhm304, LUE, Sitting Ccriyqgpg04, LUE, Sitting Height5 ft 9 in Nmqind111 lb BMI Uoexheguyw31.92 kg/m2 BSA Calculated1.89 Tobacco Useb) No PHQ-2 [...] Electronically si (more content not included)... Normal [facility] Tobacco Screening.on 023 Adult depression screening assessment No [facility] 250 DO Work Phone: Fall risk assessment a) No falls within the last year [facility] 250 DO Work Phone: Tobacco use status [facility] b) No [facility] 250 DO Work Phone: PROTIMEon 07-04-2022 INR Coag (PPP) [Relative time] 1.91 {INR} Normal [facility] Comment on above: Performed By: #### P T #### [facility] [address] [address] [address] Sariah Boyle INR GUIDELINES SEE BELOW Normal [facility] Comment on above: Result Comment: NHUNG RED INR: 2.0 - 3.0 CONDITIONS NOT LISTED BELOW 2.5 - 3.5 FOR PROSTHETIC HEART VALVE REPLACEMENT 2.5 - 3.5 RECURRENT THROMBOSIS Performed By: #### P T #### [facility] [address] [address] [address] Sariah Boyle PT Coag (PPP) [Time] 19.5 s Critically high 9.0-11.6 [facility] Comment on above: Performed By: #### P T #### [facility] [address] [address] [address] Sariah Boyle Dermatopathologyon Dermatopathology Name RIO JACOME Pathologist: RIGO CHRISTIAN MD Date of Procedure: 06/15/2022 Date Received: 06/16/2022 Date Reported 06/23/2022 Submitting Physician: FLORENTINO HERNADEZ MD, Location: [facility] [...] determined by the Department of Pathology at [facility]. The FDA does not require this [...] appropriately. Electronically Signed Out By RIGO CHRISTIAN MD/[facility] By the signature on this report, the individual or group listed as making the Final Interpretation/Diagno sis certifies that they have reviewed this case. 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 ([facility]). Specimens Submitted As: A: SKIN, SCALP STAGE II A B: SKIN, SCALP STAGE II B Gross Description: A: Received in formalin, labeled A, is a camara, semi-circular, ellipsoid piece of skin measuring [id number], oriented by the surgeon with orange ink on the bisected margin and blue ink marking the radii on either side of the central black-inked margin. The specimen is embedded en face in toto in one block. B: Received in formalin, labeled B, is a camara, semi-circular, ellipsoid piece of skin measuring [id number], oriented by the surgeon with orange ink on the bisected margin and green ink marking the radii on either side of the central black-inked margin. The specimen is embedded en face in toto in one block. dcp/06/16/2022 The assays/tests were performed with appropriate positive and negative controls which stained appropriately. [facility] [place] [id number] [place] [address] Normal [facility] Comment on above: Performed By: #### D #### Dermatopathology No Panel Informationon 06-15 [place] [address] DO Work Phone: PROTIMEon 06-07-2022 INR Coag (PPP) [Relative time] 1.44 {INR} Normal [facility] Comment on above: Performed By: #### P T #### [facility] [address] [place] [address] Dr. Sariah Boyle INR GUIDELINES SEE BELOW Normal [facility] Comment on above: Result Comment: NHUNG RED INR: 2.0 - 3.0 CONDITIONS NOT LISTED BELOW 2.5 - 3.5 FOR PROSTHETIC HEART VALVE REPLACEMENT 2.5 - 3.5 RECURRENT THROMBOSIS Performed By: #### P T #### [facility] [address] [place] [address] [address] Sariah Boyle PT Coag (PPP) [Time] 15.0 s Critically high 9.0-11.6 [facility] Comment on above: Performed By: #### P T #### [facility] [address] [place] [address] [address] Sariah Boyle Dermatopathologyon 3 Dermatopathology Name RIO JACOME Pathologist: RIGO CHRISTIAN MD Date of Procedure: 06/06/2022 Date Received: 06/07/2022 Date Reported 06/12/2022 Submitting Physician: FLORENTINO HERNADEZ MD, Location: [facility] Other External # FINAL DIAGNOSIS A. [...] M.D. Electronically Signed Out By RIGO CHRISTIAN MD/[facility] By the signature on this report, the individual or group listed as making the Final Interpretation/Diagno sis certifies that they have reviewed this case. Diagnostic interpretation performed at Dermatopath Lab [address] [id number], [facility] [address] Microscopic Description: A. Microscopic examination reveals a [...] lentigo stage I maligna type. Path #: [id number]. A1, B1, C1, D1, E1, F1, G1. Excision. ([facility]). Specimens Submitted As: A: SKIN, OCCIPITAL SCALP A1 B: SKIN, OCCIPITAL SCALP B1 C: SKIN, OCCIPITAL SCALP C1 D: SKIN, OCCIPITAL SCALP D1 E: SKIN, OCCIPITAL SCALP E1 F: SKIN, OCCIPITAL SCALP F1 G: SKIN, OCCIPITAL SCALP G1 DEBULK Gross Description: A: Received in formalin, labeled A1, is a camara, ellipsoid piece of skin measuring [id number], oriented by the surgeon with yellow ink on one margin, orange ink on the opposite margin, and black ink marking the margin opposite the surgical margin. The specimen is embedded en face in toto in one block. B: Received in formalin, labeled B1, is a camara, ellipsoid piece of skin measuring [id number], oriented by the surgeon with orange ink on one surgical margin, green ink on the opposite margin, black ink marking the margin opposite the surgical margin. The specimen is embedded en face in toto in one block. C: Received in formalin, labeled C1, is a camara, ellipsoid piece of skin measuring [id number], oriented by the surgeon with green ink on one margin, yellow ink on the opposite margin, and black ink marking the margin opposite the surgical margin. The specimen is embedded en face in toto in one block. D: Received in formalin, labeled D1, is a camara, ellipsoid piece of skin measuring [id number], oriented by the surgeon with yellow ink on one margin, red ink on the opposite margin, and black ink marking the margin opposite the surgical margin. E: Received in formalin, labeled E1, is a camara, ellipsoid piece of skin measuring [id number], oriented by the surgeon with red ink on one margin, blue ink on the opposite margin, and black ink marking the margin opposite the surgical margin. F: Received in formalin, labeled F1, is a camara, ellipsoid piece of skin measuring [id number], oriented by the surgeon with blue ink on one margin, yellow ink on the opposite margin, and black ink marking the margin opposite the surgical margin. G: Received in formalin, labeled G1, (more content not included)... Normal [facility] Comment on above: Performed By: #### D #### Dermatopathology No Panel Informationon 06-06 [facility] [address] DO Work Phone: PROTIMEon 05-08-2022 INR Coag (PPP) [Relative time] 2.06 {INR} Normal [facility] Comment on above: Performed By: #### P T #### [facility] [address] [place] [address] Dr. Sariah Boyle INR GUIDELINES SEE BELOW Normal [facility] Comment on above: Result Comment: NHUNG RED INR: 2.0 - 3.0 CONDITIONS NOT LISTED BELOW 2.5 - 3.5 FOR PROSTHETIC HEART VALVE REPLACEMENT 2.5 - 3.5 RECURRENT THROMBOSIS Performed By: #### P T #### [facility] [address] [place] [address] Dr. Sariah Boyle PT Coag (PPP) [Time] 21.2 s Critically high 9.0-11.6 [facility] Comment on above: Performed By: #### P T #### [facility] [address] [place] [address] Dr. Sariah Boyle PROTIMEon 04-07-2022 INR Coag (PPP) [Relative time] 3.37 {INR} Normal [facility] Comment on above: Performed By: #### P T #### [facility] [address] [place] [address] Dr. Sariah Boyle INR GUIDELINES SEE BELOW Normal [facility] Comment on above: Result Comment: NHUNG RED INR: 2.0 - 3.0 CONDITIONS NOT LISTED BELOW 2.5 - 3.5 FOR PROSTHETIC HEART VALVE REPLACEMENT 2.5 - 3.5 RECURRENT THROMBOSIS Performed By: #### P T #### [facility] [address] [place] [address] Dr. Sariah Boyle PT Coag (PPP) [Time] 33.6 s Critically high 9.0-11.6 [facility] Comment on above: Performed By: #### P T #### [facility] [address] [place], [place] [address] Dr. Sariah Boyle Initial Visit (Otolaryngolog y)on [...] melanoma of the scalp History of Present Yuntuww95-xnfr-jcu man referred by Dr. Hernadez for management [...] Recorded: 03Apr2022 02:27PM Height5 ft 9 in Ctthub099 lb BMI Hghgjfzuwl36.92 kg/m2 BSA Calculated1.89 Tobacco Useb) No Falls [...] Apr 19 2022 6:13AM EST (Author) Normal [employer] Tobacco Screening.on 022 Fall risk assessment a) No falls within the last year [facility] Work Phone: Tobacco use status [facility] b) No [facility] Work Phone: Dermatopathologyon Dermatopathology Name RIO JACOME Pathologist: RIGO CHRISTIAN MD Date of Procedure: 03/23/2022 Date Received: 03/24/2022 Date Reported 03/27/2022 Submitting Physician: FLORENTINO HERNADEZ MD, Location: [facility] Copy To/Referring/Attendin g: GEORGE STOKES MD Other [...] Findings: Associated nevus: Dermal nevus ADDITIONAL TESTING Dough Catcher 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 Electronically Signed Out By RIGO CHRISTIAN MD/[facility] By the signature on this report, the individual or group listed as making the Final Interpretation/Diagno sis certifies that they have reviewed this case. Diagnostic interpretation performed at Dermatopath Lab [id number] [place], [place] [id number], [facility] [address] Clinical History: Previously parietal biopsy. Narrow excisional biopsy today for confirmation of depth. ([place] office). Specimens Submitted As: A: SKIN, OCCIPITAL SCALP Gross Description: Received in formalin is one camara-brown, ellipsoid piece of skin measuring [id number]. The specimen is inked and embedded in toto in four blocks. The tips are in Block A1. dcp/03/25/2022 [facility] [place] [id number] [address] Normal [facility] Comment on above: Performed By: #### D #### Dermatopathology No Panel Informationon 03-23 [facility] Work Phone: PROTIMEon 03-06-2022 INR Coag (PPP) [Relative time] 2.08 {INR} Normal [facility] Comment on above: Performed By: #### P T #### [facility] [address] [place] [address] Dr. Sariha Boyle INR GUIDELINES SEE BELOW Normal [facility] Comment on above: Result Comment: NHUNG RED INR: 2.0 - 3.0 CONDITIONS NOT LISTED BELOW 2.5 - 3.5 FOR PROSTHETIC HEART VALVE REPLACEMENT 2.5 - 3.5 RECURRENT THROMBOSIS Performed By: #### P T #### [facility] [address] [place] [address] [address] Sariah Boyle PT Coag (PPP) [Time] 21.4 s Critically high 9.0-11.6 [facility] Comment on above: Performed By: #### P T #### [facility] [address] [place] [address] [address] Sariah Boyle Dermatopathologyon Dermatopathology Name: VIANEY JACOME Pathologist: RIGO CHRISTIAN MD Date of Procedure: 02/16/2022 Date Received: 02/16/2022 Date Reported 02/21/2022 Submitting Physician: FLORENTINO HERNADEZ MD, Location: [facility] Copy To/Referring/Attendin g: MD GADIEL REEVES FINAL DIAGNOSIS 2 SLIDES, [facility] #[id number] (BX: 02/06/2022) SKIN, OCCIPITAL SCALP, SHAVE BIOPSY: [...] M.D. CANCER SUMMARY REPORT A. 2 SLIDES, [facility] #[id number] (BX: 02/06/2022): SPECIMEN Procedure: Biopsy, shave Specimen [...] FINDINGS Additional Findings: Dermal nevus ADDITIONAL TESTING Dough Catcher Blocks: Normal Block: None Tumor Block: A1 and A2 Electronically Signed Out By RIGO CHRISTIAN MD/[facility] Diagnostic interpretation performed at [facility] [address] [id number], [facility] [address] Clinical History: SHAVE/ 2.9 X 2.4CM BCC VS SCC VS MELANOMA VS OTHER Specimens Submitted As: A: 2 SLIDES, [facility] #[id number] (BX: 02/06/2022) Gross Description: Received for consultation from [facility] are two slides labeled [id number] (BX: 02/06/2022) along with the corresponding pathology report. Slide/Block Description 2 SLIDES, [id number]. Keep Slides: N Slides Returned: N Personal Consult: N Normal [facility] Comment on above: Performed By: #### D #### Dermatopathology PROTIMEon 02-03-2022 INR Coag (PPP) [Relative time] 1.83 {INR} Normal [facility] Comment on above: Performed By: #### P T #### [facility] [address] [place] [address] Dr. Sariah Boyle INR GUIDELINES SEE BELOW Normal [facility] Comment on above: Result Comment: NHUNG RED INR: 2.0 - 3.0 CONDITIONS NOT LISTED BELOW 2.5 - 3.5 FOR PROSTHETIC HEART VALVE REPLACEMENT 2.5 - 3.5 RECURRENT THROMBOSIS Performed By: #### P T #### [facility] [address] [place] [address] Dr. Sariah Boyle PT Coag (PPP) [Time] 19.0 s Critically high 9.0-11.6 [facility] Comment on above: Performed By: #### P T #### [facility] [address] [place] [address] Dr. Sariah Boyle PROTIMEon 01-02-2022 INR Coag (PPP) [Relative time] 2.05 {INR} Normal [facility] Comment on above: Performed By: #### P T #### [facility] [address] [place] [address] Dr. Sariah Boyle INR GUIDELINES SEE BELOW Normal [facility] Comment on above: Result Comment: NHUNG RED INR: 2.0 - 3.0 CONDITIONS NOT LISTED BELOW 2.5 - 3.5 FOR PROSTHETIC HEART VALVE REPLACEMENT 2.5 - 3.5 RECURRENT THROMBOSIS Performed By: #### P T #### [facility] [address] [place] [address] [address] Sariah Boyle PT Coag (PPP) [Time] 21.1 s Critically high 9.0-11.6 [facility] Comment on above: Performed By: #### P T #### [facility] [address] [place] [address] [address] Sariah Boyle Tobacco Screening.on 022 Adult depression screening assessment No [facility] 250 DO Work Phone: Fall risk assessment a) No falls within the last year [facility] 250 DO Work Phone: Tobacco use status [facility] b) No [facility] 250 DO Work Phone: PROTIMEon 12-02-2021 INR Coag (PPP) [Relative time] 2.22 {INR} Normal [facility] Comment on above: Performed By: #### P T #### [facility] [address] [place] [address] Dr. Sariah Boyle INR GUIDELINES SEE BELOW Normal [facility] Comment on above: Result Comment: NHUNG RED INR: 2.0 - 3.0 CONDITIONS NOT LISTED BELOW 2.5 - 3.5 FOR PROSTHETIC HEART VALVE REPLACEMENT 2.5 - 3.5 RECURRENT THROMBOSIS Performed By: #### P T #### [facility] [address] [place] [address] Dr. Sariah Boyle PT Coag (PPP) [Time] 22.8 s Critically high 9.0-11.6 [facility] Comment on above: Performed By: #### P T #### [facility] [address] [place] [address] Dr. Sariah Boyle PROTIMEon 11-18-2021 INR Coag (PPP) [Relative time] 1.95 {INR} Normal [facility] Comment on above: Performed By: #### P T #### [facility] [address] [place] [address] Dr. Sariah Boyle INR GUIDELINES SEE BELOW Normal [facility] Comment on above: Result Comment: NHUNG RED INR: 2.0 - 3.0 CONDITIONS NOT LISTED BELOW 2.5 - 3.5 FOR PROSTHETIC HEART VALVE REPLACEMENT 2.5 - 3.5 RECURRENT THROMBOSIS Performed By: #### P T #### [facility] [address] [place] [address] [address] Sariah Boyle PT Coag (PPP) [Time] 20.2 s Critically high 9.0-11.6 [facility] Comment on above: Performed By: #### P T #### [facility] [address] [place] [address] [address] Sariah Boyle COMPREHENSIVE METABOLIC PANE [place] 08-23-2021 Albumin [Mass/Vol] 4.1 g/dL Normal 3.6-5.1 [facility] Comment on above: Performed By: #### 1 0231, 7600 #### [facility] [place] [address] Teaching Associate: Jose Juan Arriola MD Albumin/Globulin [Mass ratio] 1.6 {ratio} Normal 1.0-2.5 [facility] Comment on above: Performed By: #### 1 0231, 7600 #### [facility] [place] [address] Teaching Associate: Jose Juan Arriola MD ALP [Catalytic activity/Vol] 61 U/L Normal 35-144 [facility] Comment on above: Performed By: #### 1 0231, 7600 #### [facility] [place] [address] Teaching Associate: Jose Juan Arriola MD ALT [Catalytic activity/Vol] 9 U/L Normal 9-46 [facility] Comment on above: Performed By: #### 1 0231, 7600 #### [facility] [place] [address] Teaching Associate: Jose Juan Arriola MD AST [Catalytic activity/Vol] 14 U/L Normal 10-35 [facility] Comment on above: Performed By: #### 1 0231, 7600 #### [facility] of [address], [address] [place] [address] Teaching Associate: Jose Juan Arriola MD Bilirubin [Mass/Vol] 0.6 mg/dL Normal 0.2-1.2 [facility] Comment on above: Performed By: #### 1 023, 7600 #### [facility] [place] [address] Teaching Associate: Jose Juan Arriola MD Calcium [Mass/Vol] 9.1 mg/dL Normal 8.6-10.3 [facility] Comment on above: Performed By: #### 1 023, 0 #### [facility] [place] [address] Teaching Associate: Jose Juan Arriola MD Chloride [Moles/Vol] 109 mmol/L Normal 98-110 [facility] Comment on above: Performed By: #### 1 230, 0 #### [facility] [place] [address] Teaching Associate: Jose Juan Arriola MD CO2 [Moles/Vol] 26 mmol/L Normal 20-32 [facility] Comment on above: Performed By: #### 1 230, 7600 #### [facility] [place] [address] Teaching Associate: Jose Juan Arriola MD Creatinine [Mass/Vol] 2.15 mg/dL High 0.70-1.[address] [facility] Comment on above: Result Comment: For patients >49 years of age, the reference limit for Creatinine is approximately 13% higher for people identified as -[place]. Performed By: #### 1 023, 7600 #### [facility] [place] [address] Teaching Associate: Jose Juan Arroila MD eGFR NON-AFR. BAR[place] 27 mL/min/1.73m2 Low > OR = 60 [facility] Comment on above: Performed By: #### 1 023, 7600 #### [facility] [address], [address] [place] [address] Teaching Associate: Jose Juan Arriola MD GFR/1.73 sq M.predicted among blacks MDRD (S/P/Bld) [Vol rate/Area] 31 mL/min/{1.73_m2} Low > OR = 60 [facility] Comment on above: Performed By: #### 1 0231, 7600 #### [facility] [address], [address] [place] [address] Teaching Associate: Jose Juan Arriola MD Globulin (S) [Mass/Vol] 2.5 g/dL Normal 1.9-3.7 [facility] Comment on above: Performed By: #### 1 0231, 7600 #### [facility] [place] [address] Teaching Associate: Jose Juan Arriola MD Glucose [Mass/Vol] 93 mg/dL Normal 65-99 [facility] Comment on above: Result Comment: Fasting reference interval Performed By: #### 1 0231, 7600 #### [facility] [address], [address] [place] [address] Teaching Associate: Jose Juan Arriola MD Potassium [Moles/Vol] 4.7 mmol/L Normal 3.5-5.3 [facility] Comment on above: Performed By: #### 1 0231, 7600 #### [facility] [place] [address] Teaching Associate: Jose Juan Arriola MD Protein [Mass/Vol] 6.6 g/dL Normal 6.1-8.1 [facility] Comment on above: Performed By: #### 1 0231, 7600 #### [facility] [place] [address] Teaching Associate: Jose Juan Arriola MD Sodium [Moles/Vol] 142 mmol/L Normal 135-146 [facility] Comment on above: Performed By: #### 1 0231, 7600 #### [facility] [place] [address] Teaching Associate: Jose Juan Arriola MD Urea nitrogen [Mass/Vol] 31 mg/dL High 7-25 [facility] Comment on above: Performed By: #### 1 0231, 7600 #### [facility] [address], [address] [place] [address] Teaching Associate: Jose Juan Arriola MD Urea nitrogen/Creatinine [Mass ratio] 14 mg/mg Normal 6-22 [facility] Comment on above: Performed By: #### 1 0231, 7600 #### [facility] [address], [address] [place] [address] Teaching Associate: Jose Juan Arriola MD LIPID PANEL, [facility] Cholesterol [Mass/Vol] 101 mg/dL Normal <200 [facility] Comment on above: Order Comment: FASTI NG:YES FASTING: YES Performed By: #### 1 0231, 7600 #### [facility] [address], [address] [place] [address] Teaching Associate: Jose Juan Arriola MD Cholesterol in HDL [Mass/Vol] 40 mg/dL Normal > OR = 40 [facility] Comment on above: Order Comment: FASTI NG:YES FASTING: YES Performed By: #### 1 0231, 7600 #### [facility] [place] [address] Teaching Associate: Jose Juan Arriola MD Cholesterol in LDL [...] LDL-C. Phillip FITZGERALD et al. MERYL. 2013;310(19): 7933-7727 (http://education.[employer].exoro system/faq/UDJ671) Performed By: #### 1 0231, 7600 #### [facility] of [place] [address], [address] [place] [address] Teaching Associate: Jose Juan Arriola MD Cholesterol.total/Chol esterol in HDL [Mass ratio] 2.5 {ratio} Normal <5.0 [facility] Comment on above: Order Comment: FASTI NG:YES FASTING: YES Performed By: #### 1 0231, 7600 #### [facility] [address], [address] [place] [address] Teaching Associate: Jose Juan Arriola MD NON HDL CHOLESTEROL 61 mg/dL (calc) Normal <130 [facility] Comment on above: Order Comment: FASTI NG:YES FASTING: YES Result Comment: For patients with diabetes plus 1 major ASCVD risk factor, treating to a non-HDL-C goal of <100 mg/dL (LDL-C of <70 mg/dL) is considered a therapeutic option. Performed By: #### 1 0231, 7600 #### [facility] [address], [address] [place] [address] Teaching Associate: Jose Juan Arriola MD Triglyceride [Mass/Vol] 127 mg/dL Normal <150 [facility] Comment on above: Order Comment: FASTI NG:YES FASTING: YES Performed By: #### 1 0231, 7600 #### [facility] [place] [address] Teaching Associate: Jose Juan Arriola MD Tobacco Screening.on 021 Fall risk assessment a) No falls within the last year [facility] 250 DO Work Phone: Tobacco use status [facility] b) No [facility] 250 DO Work Phone: B TYPE NATRIURETIC PEPTIDE ( BNP)on 11-03-2020 B TYPE NATRIURETIC PEPTIDE (BNP) Normal [facility] Comment on above: Result Comment: FROZ EN EDTA PLASMA IS REQUIRED TEST NOT PERFORMED No suitable specimen received. Please review the test requirements at [email or web address] Performed By: #### 9 05, 58820, 39783, 6399, 718, 899, 622, 70848, 36648 #### [facility] of [place] [address] Teaching Associate: Jose Juan Arriola MD CBC (INCLUDES DIFF/PLT)on Basophils (Bld) [#/Vol] 0.071 10*3/uL Normal 0-200 [facility] Comment on above: Performed By: #### 9 05, 15728, 14368, 6399, 718, 899, 622, 74343, 33496 #### [facility] of [place] [address] Teaching Associate: Jose Juan Arriola MD Basophils/100 WBC (Bld) 1.0 % Normal [facility] Comment on above: Performed By: #### 9 05, 34435, 58612, 6399, 718, 899, 622, 49847, 58225 #### [facility] [place] [address] Teaching Associate: Jose Juan Arriola MD Eosinophils (Bld) [#/Vol] 0.099 10*3/uL Normal 15-500 [facility] Comment on above: Performed By: #### 9 05, 53541, 56878, 6399, 718, 899, 622, 74941, 25388 #### [facility] of [place] [address] Teaching Associate: Jose Juan Arriola MD Eosinophils/100 WBC (Bld) 1.4 % Normal [facility] Comment on above: Performed By: #### 9 05, 33362, 74855, 6399, 718, 899, 622, 08628, 68591 #### [facility] of [place] [address] Teaching Associate: Jose Juan Arriola MD Erythrocyte distribution width (RBC) [Ratio] 14.4 % Normal 11.0-15.0 [facility] Comment on above: Performed By: #### 9 05, 28736, 11464, 6399, 718, 899, 622, 34883, 55858 #### [facility] of [place] [address] Teaching Associate: Jose Juan Arriola MD Hematocrit (Bld) [Volume fraction] 42.7 % Normal 38.5-50.0 [facility] Comment on above: Performed By: #### 9 05, 30636, 19729, 6399, 718, 899, 622, 74597, 19587 #### [facility] of [place] [address] Teaching Associate: Jose Juan Arriola MD Hemoglobin (Bld) [Mass/Vol] 13.7 g/dL Normal 13.2-17.1 [facility] Comment on above: Performed By: #### 9 05, 45452, 52195, 6399, 718, 899, 622, 21781, 13938 #### [facility] of [place] [address] Teaching Associate: Jose Juan Arriola MD Lymphocytes (Bld) [#/Vol] 1.512 10*3/uL Normal 850-3900 [facility] Comment on above: Performed By: #### 9 05, 79382, 67255, 6399, 718, 899, 622, 03517, 53373 #### [facility] of [place] [address] Teaching Associate: Jose Juan Arriola MD Lymphocytes/100 WBC (Bld) 21.3 % Normal [facility] Comment on above: Performed By: #### 9 05, 56129, 92838, 6399, 718, 899, 622, 49933, 11996 #### [facility] of [place] [address] Teaching Associate: Jose Juan Arriola MD MCH (RBC) [Entitic mass] 28.5 pg Normal 27.0-33.0 [facility] Comment on above: Performed By: #### 9 05, 67703, 92176, 6399, 718, 899, 622, 69840, 58855 #### [facility] of [address] [place] [address] Teaching Associate: Jose Juan Arriola MD MCHC (RBC) [Mass/Vol] 32.1 g/dL Normal 32.0-36.[address] [facility] Comment on above: Performed By: #### 9 05, 15003, 50417, 6399, 718, 899, 622, 19649, 54692 #### [facility] of [place] [address] Teaching Associate: Jose Juan Arriola MD MCV (RBC) [Entitic vol] 89.0 fL Normal 80.0-100.0 [facility] Comment on above: Performed By: #### 9 05, 00186, 62728, 6399, 718, 899, 622, 09873, 96406 #### [facility] [place] [address] Teaching Associate: Jose Juan Arriola MD Monocytes (Bld) [#/Vol] 0.738 10*3/uL Normal 200-950 [facility] Comment on above: Performed By: #### 9 05, 66201, 77407, 6399, 718, 899, 622, 83305, 43915 #### [facility] [place] [address] Teaching Associate: Jose Juan Arriola MD Monocytes/100 WBC (Bld) 10.4 % Normal [facility] Comment on above: Performed By: #### 9 05, 39284, 06522, 6399, 718, 899, 622, 38305, 83002 #### [facility] [place] [address] Teaching Associate: Jose Juan Arriola MD Neutrophils (Bld) [#/Vol] 4.679 10*3/uL Normal 2805-7798 [facility] Comment on above: Performed By: #### 9 05, 17277, 84166, 6399, 718, 899, 622, 57762, 18027 #### [facility] [place] [address] Teaching Associate: Jose Juan Arriola MD Neutrophils/100 WBC (Bld) 65.9 % Normal [facility] Comment on above: Performed By: #### 9 05, 99314, 59470, 6399, 718, 899, 622, 79949, 74880 #### [facility] [place] [address] Teaching Associate: Jose Juan Arriola MD Platelet mean volume (Bld) [Entitic vol] 11.4 fL Normal 7.5-12.5 [facility] Comment on above: Performed By: #### 9 05, 73361, 00567, 6399, 718, 899, 622, 11202, 40733 #### [facility] [place] [address] Teaching Associate: Jose Juan Arriola MD Platelets (Bld) [#/Vol] 229 10*3/uL Normal 140-400 [facility] Comment on above: Performed By: #### 9 05, 39320, 26139, 6399, 718, 899, 622, 60890, 53227 #### [facility] [place] [address] Teaching Associate: Jose Juan Arriola MD RBC (Bld) [#/Vol] 4.80 10*6/uL Normal 4.20-5.80 [facility] Comment on above: Performed By: #### 9 05, 74355, 78633, 6399, 718, 899, 622, 51186, 90863 #### [facility] [place] [address] Teaching Associate: Jose Juan Arriola MD WBC (Bld) [#/Vol] 7.1 10*3/uL Normal 3.8-10.8 [facility] Comment on above: Performed By: #### 9 05, 64895, 61362, 6399, 718, 899, 622, 37349, 84348 #### [facility] [place] [address] Teaching Associate: Jose Juan Arriola MD [facility]-03-2020 Albumin [Mass/Vol] 4.1 g/dL Normal 3.6-5.1 [facility] Comment on above: Performed By: #### 9 05, 83650, 82918, 6399, 718, 899, 622, 15851, 57447 #### [facility] [place] [address] Teaching Associate: Jose Juan Arriola MD Albumin/Globulin [Mass ratio] 1.7 {ratio} Normal 1.0-2.5 [facility] Comment on above: Performed By: #### 9 05, 83066, 12952, 6399, 718, 899, 622, 61808, 20086 #### [facility] [place] [address] Teaching Associate: Jose Juan Arriola MD ALP [Catalytic activity/Vol] 62 U/L Normal 35-144 [facility] Comment on above: Performed By: #### 9 05, 09113, 73779, 6399, 718, 899, 622, 77746, 18374 #### [facility] [place] [address] Teaching Associate: Jose Juan Arriola MD ALT [Catalytic activity/Vol] 9 U/L Normal 9-46 [facility] Comment on above: Performed By: #### 9 05, 01190, 99609, 6399, 718, 899, 622, 15444, 10174 #### [facility] [place] [address] Teaching Associate: Jose Juan Arriola MD AST [Catalytic activity/Vol] 13 U/L Normal 10-35 [facility] Comment on above: Performed By: #### 9 05, 47809, 54274, 6399, 718, 899, 622, 33597, 69008 #### [facility] [place] [address] Teaching Associate: Jose Juan Arriola MD Bilirubin [Mass/Vol] 0.7 mg/dL Normal 0.2-1.2 [facility] Comment on above: Performed By: #### 9 05, 15564, 50671, 6399, 718, 899, 622, 91900, 14925 #### [facility] [address], [address] [place] [address] Teaching Associate: Jose Juan Arriola MD Calcium [Mass/Vol] 9.5 mg/dL Normal 8.6-10.3 [facility] Comment on above: Performed By: #### 9 05, 99558, 22699, 6399, 718, 899, 622, 89024, 05507 #### [facility] [place] [address] Teaching Associate: Jose Juan Arriola MD Chloride [Moles/Vol] 109 mmol/L Normal 98-110 [facility] Comment on above: Performed By: #### 9 05, 02773, 18921, 6399, 718, 899, 622, 04505, 91657 #### [facility] [address], [address] [place] [address] Teaching Associate: Jose Juan Arriola MD CO2 [Moles/Vol] 25 mmol/L Normal 20-32 [facility] Comment on above: Performed By: #### 9 05, 22286, 16932, 6399, 718, 899, 622, 75001, 55217 #### [facility] [place] [address] Teaching Associate: Jose Juan Arriola MD Creatinine [Mass/Vol] 1.99 mg/dL High 0.70-1.[address] [facility] Comment on above: Result Comment: For patients >49 years of age, the reference limit for Creatinine is approximately 13% higher for people identified as -[place]. Performed By: #### 9 05, 94488, 99283, 6399, 718, 899, 622, 32275, 86285 #### [facility] [place] [address] Teaching Associate: Jose Juan Arriola MD eGFR NON-AFR. BARBADIAN 30 mL/min/1.73m2 Low > OR = 60 [facility] Comment on above: Performed By: #### 9 05, 13003, 76720, 6399, 718, 899, 622, 37808, 47453 #### [facility] [place] [address] Teaching Associate: Jose Juan Arriola MD GFR/1.73 sq M.predicted among blacks MDRD (S/P/Bld) [Vol rate/Area] 34 mL/min/{1.73_m2} Low > OR = 60 [facility] Comment on above: Performed By: #### 9 05, 31414, 52900, 6399, 718, 899, 622, 52628, 99860 #### [facility] [place] [address] Teaching Associate: Jose Juan Arriola MD Globulin (S) [Mass/Vol] 2.4 g/dL Normal 1.9-3.7 [facility] Comment on above: Performed By: #### 9 05, 45492, 87957, 6399, 718, 899, 622, 64038, 58196 #### [facility] [place] [address] Teaching Associate: Jose Juan Arriola MD Glucose [Mass/Vol] 144 mg/dL High 65-99 [facility] Comment on above: Result Comment: Fasting reference interval For someone without known diabetes, a glucose value >125 mg/dL indicates that they may have diabetes and this should be confirmed with a follow-up test. Performed By: #### 9 05, 74358, 52281, 6399, 718, 899, 622, 16428, 90451 #### [facility] [place] [address] Teaching Associate: Jose Juan Arriola MD Potassium [Moles/Vol] 4.9 mmol/L Normal 3.5-5.[address] [facility] Comment on above: Performed By: #### 9 05, 84300, 27541, 6399, 718, 899, 622, 09088, 94843 #### [facility] [place] [address] Teaching Associate: Jose Juan Arriola MD Protein [Mass/Vol] 6.5 g/dL Normal 6.1-8.1 [facility] Comment on above: Performed By: #### 9 05, 93349, 95740, 6399, 718, 899, 622, 13315, 35215 #### [facility] [place] [address] Teaching Associate: Jose Juan Arriola MD Sodium [Moles/Vol] 141 mmol/L Normal 135-146 [facility] Comment on above: Performed By: #### 9 05, 48215, 11976, 6399, 718, 899, 622, 69013, 24862 #### [facility] [place] [address] Teaching Associate: Jose Juan Arriola MD Urea nitrogen [Mass/Vol] 31 mg/dL High 7-25 [facility] Comment on above: Performed By: #### 9 05, 25786, 66166, 6399, 718, 899, 622, 54473, 12020 #### [facility] [place] [address] Teaching Associate: Jose Juan Arriola MD Urea nitrogen/Creatinine [Mass ratio] 16 mg/mg Normal 6-22 [facility] Comment on above: Performed By: #### 9 05, 84778, 84538, 6399, 718, 899, 622, 28744, 71577 #### [facility] [place] [address] Teaching Associate: Jose Juan Arriola MD MAGNESIUMon 11-03-2020 Magnesium [Mass/Vol] 2.1 mg/dL Normal 1.5-2.5 [facility] Comment on above: Performed By: #### 9 05, 04593, 35908, 6399, 718, 899, 622, 26269, 27441 #### [facility] [place] [address] Teaching Associate: Jose Juan Arriola MD PHOSPHATE ( PHOSPHORUS)on 11-03-2020 Phosphate [Mass/Vol] 2.9 mg/dL Normal 2.1-4.3 [facility] Comment on above: Performed By: #### 9 05, 89115, 47302, 6399, 718, 899, 622, 45614, 63049 #### [facility] [place] [address] Teaching Associate: Jose Juan Arriola MD PTH, INTACT WITHOUT [...] Normal High Performed By: #### 9 05, 38835, 46950, 6399, 718, 899, 622, 60523, 73768 #### [facility] [place] [address] Teaching Associate: Jose Juan Arriola MD TSHon 11-03-2020 TSH Qn 2.08 m[IU]/L Normal 0.40-4.50 [facility] Comment on above: Performed By: #### 9 05, 12840, 56731, 6399, 718, 899, 622, 01535, 27735 #### [facility] [place] [address] Teaching Associate: Jose Juan Arriola MD URIC ACIDon 11-03-2020 Urate [Mass/Vol] 8.5 mg/dL High 4.0-8.0 [facility] Comment on above: Result Comment: Ther apeutic target for gout patients: <6.0 mg/dL Performed By: #### 9 05, 67443, 30267, 6399, 718, 899, 622, 24155, 11143 #### [facility] [address], [address] [place] [address] Teaching Associate: Jose Juan Arriola MD VITAMIN D,25-OH,TOTAL,IAon 0 [...] D, (D2,D3), LC/MS/MS is recommended: order code [id number] (patients >2yrs). See Note 1 Note 1 For additional information, please refer to http://education.Intraxio/faq/BRN080 (This link is being provided for informational/ educational purposes only.) Performed By: #### 1 0231, 7600 #### [facility] [address], [address] [place] [address] Teaching Associate: Jose Juan Arriola MD [facility] CARDIAC STRESS/REST INJE CTIONon 08-07-2019 [facility] CARDIAC STRESS/REST INJECTION Patient Name: RIO JACOME STUDY: MYOCARDIAL PERFUSION STRESS TEST WITH LEXISCAN Performing facility: [facility], [address] [place] [address], [address], [place] [address] [facility] Provider: Melanie Langston MD, FACC PCP: Dr. Alden Morin Supervising provider: Edwige Jacobsen MD, FACC INDICATION: Arteriosclerotic cardiovascular disease Pre-operative risk assessment for Gallbladder scheduled at [facility]. HISTORY: Gender: M; Age: 83 y/o ; Height: 175.26 cm; Weight: 74.8164418 kg. High Cholesterol; CAD; HTN; ICD V. Tach., ICD Denies smoking. COMPARISON: Previous nuclear testing completed at [facility]. ACCESSION NUMBER(S): [id number]; [id number]; [id number] ORDERING CLINICIAN: RENETTA LANGSTON TECHNIQUE: ONE DAY [...] changes. Electronically signed by: EDWIGE JACOBSEN MD [facility] Reminderson 03-14-2019 Reminders - From: Qing Villegas MA To: EU - Clinical; Sent: 03/04/2019 11:29:06 EDT Show up: 03/14/2019 11:29:00 EDT Subject: Ambulatory Reminder Due Date/Time: 03/18/2019 11:29:00 EDT Reminder/Recall FISH/Cytology done 03/04/19 Negative. Normal Garcia [facility] Vital Signs Date Time Vital Sign Value Performing Clinician Facility 11-05-2023 08:57-0400 Body height 180.3 cm Renetta Langston MD Work Phone: [facility] 11-05-2023 08:57-0400 Body mass index (BMI) [Ratio] 21.9 kg/m2 Renetta Langston MD Work Phone: [facility] 11-05-2023 08:57-0400 Body weight 71.22 kg Renetta Langston MD Work Phone: [facility] 11-05-2023 08:57-0400 Diastolic blood pressure 90 mm[Hg] Renetta Langston MD Work Phone: [facility] 11-05-2023 08:57-0400 Heart rate 82 /min Renetta Langston MD Work Phone: [facility] 11-05-2023 08:57-0400 Systolic blood pressure 130 mm[Hg] Renetta Langston MD Work Phone: [facility] 08-06-2023 10:10-0400 Body height 177.8 cm Phil Morin DO Work Phone: [facility] 08-06-2023 10:10-0400 Body mass index (BMI) [Ratio] 23.69 kg/m2 Phil Ronnelldestinyng DO Work Phone: [facility] 08-06-2023 10:10-0400 Body temperature 97.81 [degF] Phil Myersng DO Work Phone: [facility] 08-06-2023 10:10-0400 Body weight 74.89 kg Phil Morin DO Work Phone: [facility] 08-06-2023 10:10-0400 Diastolic blood pressure 60 mm[Hg] [facility] 08-06-2023 10:10-0400 Heart rate 93 /min Phil Furlong DO Work Phone: [facility] [employer] 08-06-2023 10:10-0400 Respiratory rate 18 /min Phil Furlong DO Work Phone: [facility] [employer] 08-06-2023 10:10-0400 SaO2% (BldA) [Mass fraction] 97 % Phil Furlong DO [facility] 08-06-2023 10:10-0400 Systolic blood pressure 106 mm[Hg] Phil Furlong DO Work Phone: [facility] [employer] 05-29-2023 16:13-0500 Body height 177.8 cm Phil Furlong DO Work Phone: [facility] [employer] 05-29-2023 16:13-0500 Body mass index (BMI) [Ratio] 24.12 kg/m2 Phil Furlong DO [facility] 05-29-2023 16:13-0500 Body temperature 97.81 [degF] Phil Furlong DO [facility] 05-29-2023 16:13-0500 Body weight 76.25 kg Phil Furlong DO Work Phone: [facility] [employer] 05-29-2023 16:13-0500 Diastolic blood pressure 68 mm[Hg] Phil Furlong DO [facility] 05-29-2023 16:13-0500 Heart rate 104 /min Phil Furlong DO Work Phone: [facility] [employer] [facility] 05-29-2023 16:13-0500 SaO2% (BldA) [Mass fraction] 99 % Phil Furlong DO Work Phone: [facility] 05-29-2023 16:13-0500 Systolic blood pressure 128 mm[Hg] Phil Furlong DO Work Phone: [facility] 01-12-2023 14:17-0400 Body height 175.26 cm Phil G Furlong Work Phone: [facility] 250 DO Work Phone: 01-12-2023 14:17-0400 Body mass index (BMI) [Ratio] 23.78 kg/m2 Phil G Furlong Work Phone: [facility] 250 DO Work Phone: 01-12-2023 14:17-0400 Body surface area Derived from formula 1.88 m2 Phil G Furlong Work Phone: [facility] 250 DO Work Phone: 01-12-2023 14:17-0400 Body weight 73.03 kg Phil G Furlong Work Phone: [facility] 250 DO Work Phone: 01-12-2023 14:17-0400 Diastolic blood pressure 78 mm[Hg] Phil G Furlong Work Phone: [facility] 250 DO Work Phone: 01-12-2023 14:17-0400 Heart rate 72 /min Phil G Furlong Work Phone: [facility] DO Work Phone: 01-12-2023 14:17-0400 Systolic blood pressure 122 mm[Hg] Phil G Furlong Work Phone: [facility] 250 DO Work Phone: 07-14-2022 15:41-0500 Body height 175.26 cm Phil G Furlong Work Phone: [facility] [employer] 250 DO Work Phone: 07-14-2022 15:41-0500 Body mass index (BMI) [Ratio] 23.92 kg/m2 Phil Reynagalong Work Phone: [facility] [employer] [facility] 250 DO Work Phone: 07-14-2022 15:41-0500 Body surface area Derived from formula 1.89 m2 Phil Reynagalong Work Phone: [facility] [employer] [facility] 250 DO Work Phone: 07-14-2022 15:41-0500 Body weight 73.48 kg Phil Reynagalong Work Phone: [facility] [employer] [facility] 250 DO Work Phone: 07-14-2022 15:41-0500 Diastolic blood pressure 80 mm[Hg] Phil Reynagalong Work Phone: [facility] [employer] [facility] 250 DO Work Phone: 07-14-2022 15:41-0500 Heart rate 80 /min Phil Reynagalong Work Phone: [facility] [employer] 250 DO Work Phone: 07-14-2022 15:41-0500 Systolic blood pressure 130 mm[Hg] Phil Reynagalong Work Phone: [facility] [employer] 250 DO Work Phone: 06-15-2022 12:40-0500 Diastolic blood pressure 78 mm[Hg] Fl[facility]ino Hernadez [facility] 06-15-2022 12:40-0500 Systolic blood pressure 167 mm[Hg] Florentino Hernadez [facility] 06-06-2022 08:07-0500 Diastolic blood pressure 85 mm[Hg] Florentino Hernadez [facility] 06-06-2022 08:07-0500 Systolic blood pressure 150 mm[Hg] Florentino Hernadez [facility] 04-03-2022 14:27-0500 Body height 175.26 cm Phil G Furlong Work Phone: [facility] [place] Work Phone: 04-03-2022 14:27-0500 Body mass index (BMI) [Ratio] 23.92 kg/m2 Phil G Furlong Work Phone: [facility] [place] Work Phone: 04-03-2022 14:27-0500 Body surface area Derived from formula 1.89 m2 Phil G Furlong Work Phone: [facility] [place] Work Phone: 04-03-2022 14:27-0500 Body weight 73.48 kg Philgirish Reynagalong Work Phone: [facility] [place] Work Phone: 03-23-2022 09:29-0400 Diastolic blood pressure 89 mm[Hg] Karlie Craig Dept[facility]at[facility] 03-23-2022 09:29-0400 Systolic blood pressure 160 mm[Hg] Karlie Craig [facility] 03-23-2022 08:29-0400 Diastolic blood pressure 89 mm[Hg] Florentino Hernadez Dept[facility] 03-23-2022 08:29-0400 Systolic blood pressure 160 mm[Hg] Florentino Hernadez [facility] 12-13-2021 08:48-0400 Body height 175.26 cm Phil Reynagalong [facility] Work Phone: 12-13-2021 08:48-0400 Body mass index (BMI) [Ratio] 23.63 kg/m2 Phil G Furlong Work Phone: [facility] [employer] 250 DO Work Phone: 12-13-2021 08:48-0400 Body surface area Derived from formula 1.88 m2 Phil G Furlong Work Phone: [facility] [employer] 250 DO Work Phone: 12-13-2021 08:48-0400 Body weight 72.58 kg Phil G Furlong Work Phone: [facility] [employer] 250 DO Work Phone: 12-13-2021 08:48-0400 Diastolic blood pressure 80 mm[Hg] Phil G Furlong Work Phone: [facility] [employer] [facility] 250 DO Work Phone: 12-13-2021 08:48-0400 Heart rate 80 /min Phil G Furlong Work Phone: [facility] [employer] [facility] 250 DO Work Phone: 12-13-2021 08:48-0400 Systolic blood pressure 128 mm[Hg] Phil G Furlong Work Phone: [facility] 250 DO Work Phone: 05-02-2021 08:27-0500 Body height 175.26 cm Phil G Furlong Work Phone: [facility] [employer] [facility] 250 DO Work Phone: 05-02-2021 08:27-0500 Body mass index (BMI) [Ratio] 24.37 kg/m2 Phil G Furlong Work Phone: [facility] [employer] 250 DO Work Phone: 05-02-2021 08:27-0500 Body surface area Derived from formula 1.9 m2 Phil Reynagalong Work Phone: [facility] 250 DO Work Phone: 05-02-2021 08:27-0500 Body weight 74.84 kg Phil Reynagalong Work Phone: [facility] 250 DO Work Phone: 05-02-2021 08:27-0500 Diastolic blood pressure 76 mm[Hg] Phil Reynagalong Work Phone: [facility] DO Work Phone: 05-02-2021 08:27-0500 Heart rate 81 /min Phil Reynagalong Work Phone: [facility] 250 DO Work Phone: 05-02-2021 08:27-0500 Systolic blood pressure 137 mm[Hg] Phil Reynagalong Work Phone: [facility] [employer] 250 DO Work Phone: 1934 23:00-0500 >na< Karlie Craig Dept. of Dermato logy Encounters Encounter Date Encounter Type Care Provider Facility Start: 12-27-2023 End: 12-27-2023 Patient encounter procedure DO Phil Furlong Work Phone: [facility] Start: 12-27-2023 End: 12-27-2023 ambulatory DO Phil Furlong Work Phone: [facility] Work Phone: Start: 11-05-2023 End: 11-05-2023 Office outpatient visit 25 minutes Renetta Langston MD Work Phone: [facility] Comment on above: Arteriosclerotic car diovascular disease (ASCVD) (Primary Dx); Essential hypertension; Mixed hyperlipidemia; Ventricular tachycardia (Multi); ICD (implantable cardioverter-defibrillator) in place; Dilated cardiomyopathy (Multi); Ischemic cardiomyopathy Start: 11-05-2023 End: 11-05-2023 ambulatory [facility] Ambulatory Start: 09-27-2023 End: 09-27-2023 Patient encounter procedure DO Phil Morin Work Phone: [facility] Start: 09-27-2023 End: 09-27-2023 ambulatory DO Phil Morin Work Phone: [facility] Work Phone: Start: 08-23-2023 Orders Only Phil pool DO Work Phone: [facility] Start: 08-09-2023 Orders Only Phil pool DO Work Phone: [facility] Comment on above: Type 2 diabetes gamaliel itus without complication, without long- term current use of insulin ([facility]) (Primary Dx); Hypertensive 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 ([facility]) Start: 08-06-2023 End: 08-07-2023 ambulatory [facility] Start: 08-06-2023 End: 08-06-2023 ambulatory [facility] Start: 08-06-2023 End: 08-06-2023 Office outpatient visit 25 minutes Phil Morin DO Work Phone: [facility] Comment on above: Hypertensive heart a nd renal disease with (congestive) heart failure ([facility]) (Primary Dx); Hyperlipidemia, unspecified hyperlipidemia type; Stage 4 chronic kidney disease (CMS-HCC); Type 2 diabetes mellitus without complication, without long-term current use of insulin (CMS-HCC); Hyperparathyroidism (CMS-HCC); Malignant melanoma of scalp or neck ([facility]); Longstanding persistent atrial fibrillation (CMS-HCC); Paroxysmal atrial fibrillation ([facility]); Microalbuminuric diabetic nephropathy ([facility]) Start: 07-18-2023 Orders Only Phil Myers ng DO [facility] Phone[facility] Comment on above: Longstanding persist ent atrial fibrillation ([facility]) (Primary Dx) Start: 06-28-2023 End: 06-28-2023 Patient encounter procedure DO Phil Furlong Work Phone: [facility] Start: 06-28-2023 End: 06-28-2023 ambulatory DO Phil Furlong Work Phone: [facility] Work Phone: Start: 05-29-2023 End: 05-29-2023 ambulatory PHILGIRISH MYERSNG [facility] Start: 05-29-2023 End: 05-29-2023 Office outpatient visit 25 minutes Philgirish Reynagalong DO Work Phone: [facility] Comment on above: Paroxysmal atrial fi brillation ([facility]) (Primary Dx); Hypertensive 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 ([facility]); Essential hypertension; Hypothyroidism, unspecified type; Type 2 diabetes mellitus without complication, without long-term current use of insulin ([facility]); Arteriosclerotic vascular disease Start: 03-20-2023 End: 03-20-2023 Patient encounter procedure DO Phil Furlong Work Phone: [facility] Start: 03-20-2023 End: 03-20-2023 ambulatory DO Phil Furlong Work Phone: [facility] Work Phone: Start: 01-12-2023 Office outpatient vi sit 25 minutes Phil Martínez Furlong Work Phone: [facility] 250 DO Work Phone: Start: 01-12-2023 Patient encounter procedure De nnponce Reynagalong Work Phone: [facility] DO Work Phone: Start: 01-12-[address] Renetta Langston II Facility: Start: 12-04-[address] Phil Morin Facility:90 Start: 10-17-2022 End: 10-18-[address] JARON DAVALOS Facility:[facility] Start: 09-15-2022 End: 09-16-[address] JARON DAVALOS Facility:[facility] Start: 08-28-[address] Phil Morin Facility:90 Start: 08-28-2022 End: 08-28-2022 ambulatory DO Phil Morin Work Phone: [facility] Work Phone: Start: 08-28-2022 End: 08-28-2022 Patient encounter procedure DO Phil Morin Work Phone: [facility] Start: 08-15-2022 End: 08-16-[address] JARON DAVALOS Facility:[facility] Start: 07-18-2022 End: 07-19-[address] JARON DAVALOS Facility:H1 Start: 07-14-2022 Office outpatient vi sit 25 minutes Phil Morin Work Phone: [facility] 250 DO Work Phone: Start: 07-14-[address] Phil Morin Facility: Start: 07-04-2022 End: 07-05-[address] JARON DAVALOS Facility:H1 Start: 07-03-2022 Karlie Craig Dept. of D ermatology Start: 06-16-2022 Gadiel Estevez Dept. of Dermatology Start: 06-16-2022 Telephone encounter Phil duron Work Phone: [facility] 250 DO Work Phone: Start: 06-15-2022 Florentino Hernadez Dept. of Dermatology Start: 06-15-[address] Phil Morin Facility:[id number] Start: 06-15-[address] Phil Morin Facility:[id number] Start: 06-09-2022 Rx Renewal Phil Myers ng Work Phone: [facility] 250 DO Work Phone: Start: 06-07-2022 End: 06-08-[address] PHIL MORIN Facility:H1 Start: 06-07-2022 Florentino Hernadez Dept. of Dermatology Start: 06-06-2022 ambulatory Florentino Hernadez Facility: [id number] Start: 06-06-2022 ambulatory Florentino Hernadez Facility: [id number] Start: 05-17-[address] Phil Morin Facility:[id number] Start: 05-17-2022 End: 05-17-2022 ambulatory DO Philgirish Myersng Work Phone: [facility] Work Phone: Start: 05-17-2022 End: 05-17-2022 Patient encounter procedure DO Phil Myersng Work Phone: [facility] Start: 05-08-2022 End: 05-09-[address] PHIL MORIN Facility:H1 Start: 05-01-2022 Rx Renewal Phil Myers ng Work Phone: [facility] DO Work Phone: Start: 04-07-2022 End: 04-08-[address] PHIL MORIN Facility:H1 Start: 04-04-2022 Karlie Craig Dept. of D ermatology Start: 04-03-2022 Office outpatient ne w 45 minutes Phil Morin Work Phone: [facility] Work Phone: Start: 04-03-2022 Patient encounter procedure De mindi Martínez Reynagadestinyyrn Work Phone: [facility] Work Phone: Start: 04-03-[address] Ketan Iyer Facility:[id number] Start: 03-23-2022 Florentino Hernadez Dept. of Dermatology Start: 03-23-2022 ambulatory Florentino Hernadez Facility: [id number] Start: 03-23-2022 ambulatory Florentino Hernadez Facility: [id number] Start: 03-06-2022 End: 03-07-[address] PHIL MORIN Facility:H1 Start: 02-28-2022 Karlie Craig Dept. of D ermatology Start: 02-16-2022 ambulatory Florentino Hernadez Facility: [id number] Start: 02-15-[address] Phil reddy Ronnelllong Facility:[id number] Start: 02-15-2022 End: 02-15-2022 ambulatory DO Phil Morin Work Phone: [facility] Work Phone: Start: 02-15-2022 End: 02-15-2022 Patient encounter procedure DO Phil Morin Work Phone: [facility] Start: 02-03-2022 End: 02-04-[address] PHIL MORIN Facility:H1 Start: 01-02-2022 End: 01-03-[address] PHIL MORIN Facility:H1 Start: 12-13-2021 Office outpatient vi sit 25 minutes Phil Morin Work Phone: [facility] 250 DO Work Phone: Start: 12-02-2021 End: 12-16-[address] PHIL MORIN Facility:H1 Start: 11-18-2021 End: 11-19-[address] PHIL MORIN Facility: Start: 05-02-2021 Office outpatient vi sit 25 minutes Phil Soliz Ronnelldestinyyrn Work Phone: [facility] 250 DO Work Phone: Procedures Date Procedure Procedure Detail Performing Clinician Start: 08-06-2023 Adult depression scr eening assessment Phil Morin DO Work Phone: Start: 05-29-2023 Adult depression scr eening assessment Phil Morin DO Work Phone: Start: 06-15-2022 Excision malignant l esion s/n/h/f/g 2.1-3.0 cm Florentino Hernadez Start: 06-06-2022 Excision malignant: Scalp/Neck/Hands/Feet/Genit adam - 4.0cm [id number] Florentino Hernadez Start: 06-06-2022 Excision malignant: Scalp/Neck/Hands/Feet/Genit adam - 4.0cm [id number] Florentino Hernadez Start: 03-23-2022 End: 03-23-2022 Exc b9 lesion mrgn xcp sk tg t/a/l 3.1-4.0 cm Florentino Hernadez Start: 02-28-2022 Karlie amaya Brain Surgery Phil Soliz Corey polo Work Phone: Cataract surgery Phil Soliz Kyaw valdez Work Phone: History Of Prior Surgery Brayan Soliz Patience Work Phone: Total colonoscopy Phil Soliz Mckayla duron Work Phone: Transurethral resect ion of bladder neoplasm Phil Martínez Morin Work Phone: Plan of Treatment Date Care Activity Detail Author Start: 08-11-2027 DTaP,Tdap and Td Vaccines (2 - Td or Tdap) DTaP,Tdap and Td Vaccines (2 - Td or Tdap) [facility] [employer] [facility] Start: 08-11-2027 DTaP/Tdap/Td Vaccines (2 - Td or Tdap) DTaP/Tdap/Td Vaccines (2 - Td or Tdap) [facility] Start: 08-05-2024 Administration of varicella zoster vaccine Zoster (Shingles) Vaccine (1 of 2) [facility] Comment on above: Postponed from 09/25/2015 (Patient Refus ed) Start: 08-05-2024 Adult BMI Screening Adult BMI Screening [facility] Start: 08-05-2024 Depression Screening Depression Screening [facility] Start: 08-05-2024 Tobacco Screening Tobacco Screening [facility] Start: 08-04-2024 End: 08-04-2024 Patient encounter procedure 08/04/2024 9:30 AM EDT Office Visit [facility] [address] [facility] [address] [place] [id number] Roslyn Mckenzie MD [address] [facility] [place] [address] [facility] Start: 05-29-2024 Adult BMI Screening Adult BMI Screening [facility] Start: 05-29-2024 Depression Screening Depression Screening [facility] Start: 05-29-2024 Fall Risk Screening Fall Risk Screening [facility] Start: 05-29-2024 Tobacco Screening Tobacco Screening [facility] Start: 02-06-2024 End: 02-06-2024 Patient encounter procedure 02/06/2024 9:00 AM EDT [facility] [address] [place] [address] Phil Morin, DO [address], [facility] [place] [address] [facility] Start: 01-20-2024 Influenza vaccination Influenza Vaccine [facility] Start: 10-16-2023 FUV, Provider: Renetta Langston, Status: Pen, Time: 9:00 AM FUV, Provider: Renetta Langston, Status: Pen, Time: 9:00 AM [facility] 250 DO Work Phone: Start: 08-06-2023 End: 08-06-2023 Patient encounter procedure 08/06/2023 10:10 AM EDT Office Visit [facility] [address] [place] [address] Phil Morin, DO [address], [place] [address] [facility] Start: 07-30-2023 End: 07-30-2023 Patient encounter procedure 07/30/2023 10:20 AM EDT [facility] [address] [place] [address] RonnellPhil queen, DO [address], [place] [address] [facility] Start: 01-19-2023 COVID-19 Vaccine ( season) COVID-19 Vaccine ( season) [facility] Start: 01-12-2023 FUV, Provider: Renetta Langston, Status: Pen, Time: 2:10 PM FUV, Provider: Renetta Langston, Status: Pen, Time: 2:10 PM [facility] 250 DO Work Phone: Start: 07-14-2022 FUV, Provider: Renetta Langston, Status: Pen, Time: 3:10 PM FUV, Provider: Renetta Langston, Status: Pen, Time: 3:10 PM [facility] [place] Work Phone: Start: 06-27-2022 FUV, Provider: Edwige Jacobsen, Status: Pen, Time: 9:10 AM FUV, Provider: Edwige Jacobsen, Status: Pen, Time: 9:10 AM [facility] Work Phone: Start: 12-13-2021 FUV, Provider: Renetta Langston, Status: Pen, Time: 8:50 AM FUV, Provider: Renetta Langston, Status: Pen, Time: 8:50 AM [facility] 250 DO Work Phone: Start: 06-03-2016 Creatinine measurement Creatinine Level [facility] Start: 06-03-2016 Potassium measurement Potassium Level [facility] Start: 09-25-2015 Administration of varicella zoster vaccine Zoster (Shingles) Vaccine (1 of 2) [facility] Start: 09-25-2015 Zoster Vaccines (2 of 3) Zoster Vaccines (2 of 3) [facility] Start: 1994 RSV patients and/or patients aged 60+ years (1 - 1-dose 60+ series) RSV patients and/or patients aged 60+ years (1 - 1-dose 60+ series) [facility] Start: 1952 Diabetes mellitus screening Diabetes Screening [facility] Start: 02-13-1935 Examination of skin Derm Melanoma Skin Check [facility] Start: 1934 Echocardiography Echocardiogram [facility] Start: 1934 Lipid panel Lipid Panel [facility] Start: 1934 Medicare Annual Wellness 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 ([facility]) 1 Occurrences starting 05/29/2023 until 05/29/2024 [facility] Comment on above: 1 Occurrences starting 05/29/2023 until 05/29/2024 End: 05-29-2024 Hemoglobin A1c/Hemoglobin.total in Blood Hemoglobin A1c Lab Routine Type 2 diabetes mellitus without complication, without long-term current use of insulin ([facility]) 1 Occurrences starting 05/29/2023 until 05/29/2024 [facility] Comment on above: 1 Occurrences starting 05/29/2023 until 05/29/2024 End: 05-29-2024 Lipid panel Lipid panel Lab Routine Arteriosclerotic vascular disease 1 Occurrences starting 05/29/2023 until 05/29/2024 [facility] Comment on above: 1 Occurrences starting 05/29/2023 until 05/29/2024 End: 05-29-2024 Protime & INR Protime & INR Lab Routine Paroxysmal atrial fibrillation ([facility]) 1 Occurrences starting 05/29/2023 until 05/29/2024 [facility] Work Phone: Comment on above: 1 Occurrences starting 05/29/2023 until 05/29/2024 End: 05-29-2024 Thyrotropin [Units/volume] in Serum or Plasma TSH Lab Routine Hypothyroidism, unspecified type 1 Occurrences starting 05/29/2023 until 05/29/2024 [facility] Comment on above: 1 Occurrences starting 05/29/2023 until 05/29/2024 Immunizations Immunization Date Immunization Notes Care Provider [facility] 03-30-2023 Influenza, High-dose , Quadrivalent Philgirish Myersng DO Work Phone: [facility] 03-30-2023 influenza virus vacc ine, unspecified formulation Phil Myersng DO Work Phone: [facility] 02-16-2022 Fluzone High-Dose Quadrivalent 0.7 ML Intramuscular Suspension Prefilled Syringe Phil Morin Work Phone: [facility] ANPI DO Work Phone: 01-28-2021 Fluad Quadrivalent 0 .5 ML Intramuscular Prefilled Syringe Phil Morin Work Phone: [facility] 250 DO Work Phone: 07-14-2020 Pfizer-BioNTech COVI D-19 Vacc 30 MCG/0.3ML Intramuscular Suspension Phil Morin Work Phone: [facility] 250 DO Work Phone: 07-01-2020 Pfizer-BioNTech COVI D-19 Vacc 30 MCG/0.3ML Intramuscular Suspension Phil Morin Work Phone: [facility] 06-16-2020 COVID-19, mRNA, LNP- S, PF, 30mcg/0.3mL Dose Phil Reynagayrn DO Work Phone: [facility] 06-11-2020 CenifyBioNT[employer]edic Synergy COVI D-19 Vacc 30 MCG/0.3ML Intramuscular Suspension [facility] Work [facility]: [place] [address] DO Work Phone: 04-05-2020 pneumococcal polysaccharide vaccine, 23 valent [facility] Work Phone: [place] [address] DO Work Phone: 02-23-2020 Fluad Quadrivalent 0 .5 ML Intramuscular Prefilled Syringe [facility] Work Phone: [place] [address] DO Work Phone: 02-19-2020 influenza, seasonal, injectable [facility] Work Phone: [place] [address] DO Work Phone: 07-20-2019 pneumococcal conjuga te vaccine, 13 valent [facility] Work Phone: [place] [address] DO Work Phone: 03-12-2019 pneumococcal conjuga te vaccine, 13 valent Phil Soliz [place] Work Phone: [place] [address] DO Work Phone: 03-12-2019 Seasonal trivalent influenza vaccine, adjuvanted, preservative free Phil Soliz [place] Work Phone: [place] [address] DO Work Phone: 02-18-2019 influenza virus vacc ine, unspecified formulation [facility] Work Phone: [place] [address] DO Work Phone: 03-04-2018 influenza virus vacc ine, unspecified formulation Phil Reynagalong Work Phone: [facility] ANPI DO Work Phone: 08-10-2017 tetanus toxoid, redu edwin diphtheria toxoid, and acellular pertussis vaccine, adsorbed Phil Soliz [place] Work Phone: [place] [address] DO Work Phone: 03-21-2017 influenza virus vacc ine, unspecified formulation Phil Reynagalong Work Phone: [place] [address] DO Work Phone: 03-13-2017 influenza, seasonal, injectable Phil Soliz [place] Work Phone: [place] [address] DO Work Phone: 02-21-2016 influenza, seasonal, injectable, preservative free Phil Reynagalong Work Phone: [place] [address] DO Work Phone: 02-19-2016 influenza virus vacc ine, unspecified formulation Phil Reynagalong Work Phone: [place] [address] DO Work Phone: 07-31-2015 zoster vaccine, live Phil Reynagalong Work Phone: [place] [address] DO Work Phone: 07-31-2015 zoster vaccine, unspecified formulation Phil Ronnelllong DO Work Phone: [facility] 02-18-2015 influenza virus vacc ine, unspecified formulation Phil G [place] Work Phone: [place] [address] DO Work Phone: 02-17-2015 influenza, seasonal, injectable, preservative free Phil Furlong DO Work Phone: [facility] 05-11-2014 pneumococcal polysaccharide vaccine, 23 valent Phil G [place] Work Phone: [facility] 250 DO Work Phone: 02-18-2014 influenza virus vacc ine, unspecified formulation Phil Soliz [place] Work Phone: [place] [address] DO Work Phone: 04-03-2013 pneumococcal conjuga te vaccine, 13 valent Phil Soliz [place] Work Phone: [place] [address] DO Work Phone: 02-18-2013 influenza virus vacc ine, unspecified formulation Phil Soliz [place] Work Phone: [place] [address] DO Work Phone: 02-18-2013 pneumococcal polysaccharide vaccine, 23 valent Phil G [place] Work Phone: [place] [address] DO Work Phone: 12-20-2011 influenza virus vacc ine, unspecified formulation Phil Soliz [employer] Work Phone: [place] [address] DO Work Phone: 05-21-2010 influenza virus vacc ine, unspecified formulation Phil Soliz [place] Work Phone: [place] [address] DO Work Phone: 05-21-2009 influenza virus vacc ine, unspecified formulation Phil G [place] Work Phone: [facility] 250 DO Work Phone: 05-21-2008 influenza virus vacc ine, unspecified formulation Phil G [place] Work Phone: [facility] 250 DO Work Phone: 05-21-2007 pneumococcal polysaccharide vaccine, 23 valent Phil G [place] Work Phone: [facility] 250 DO Work Phone: 03-28-2002 pneumococcal polysaccharide vaccine, 23 valent Phil Myersng [facility] Work Phone: 03-21-2002 pneumococcal polysaccharide vaccine, 23 valent Phil Morin DO Work Phone: [facility] 1934 pneumococcal conjuga te vaccine, 7 valent Karlie Craig Dept. of Dermatology Payers Date Payer Category Payer Self-pay [id number] 2022 Medicare [id number] 1959 Private Health Insurance [id number] 1959 Private Health Insurance [id number] 1934 Unknown [id number] 2..840.1.721229.3.579.2.593 1934 Unknown [id number] .840.1.186231.3.579.2.593 1934 Unknown [id number] 2..840.1.405203.3.579.2.593 1934 Unknown [id number] 2.16.840.1.786194.3.579.2.593 1934 Unknown [id number] 2.16.840.1.918618.3.579.2.593 1934 Unknown [id number] 2.16.840.1.441882.3.579.2.593 1934 Unknown [id number] 2.16.840.1.864876.3.579.2.593 1934 Unknown [id number] 2.16.840.1.170690.3.579.2.593 1934 Unknown [id number] 2.16.840.1.700570.3.579.2.593 1934 Unknown [id number] 2.16.840.1.160456.3.579.2.593 1934 Unknown [id number] 2.16.840.1.554575.3.579.2.593 1934 Unknown [id number] 2.16.840.1.263742.3.579.2.593 1934 Unknown [id number] 2.16.840.1.988661.3.579.2.593 1934 Unknown [id number] 2.16.840.1.300350.3.579.2.356 1934 Unknown [id number] 2.16.840.1.491083.3.579.2.356 1934 Unknown [id number] 2.16.840.1.121530.3.579.2.356 1934 Unknown [id number] 2.16.840.1.772700.3.579.2.356 1934 Unknown [id number] 2.16.840.1.502938.3.579.2.356 1934 Unknown [id number] 2.16.840.1.656602.3.579.2.356 1934 Unknown [id number] 2.16.840.1.902010.3.579.2.356 1934 Unknown [id number] 2.16.840.1.684649.3.579.2.356 1934 Unknown [id number] 2.16.840.1.276491.3.579.2.356 1934 Unknown [id number] 2.840.1.814105.3.579.2.356 1934 Unknown [id number] 2.840.1.099067.3.579.2.356 1934 Unknown [id number] 2.840.1.536722.3.579.2.356 1934 Unknown [id number] 2.840.1.355769.3.579.2.356 1934 Unknown [id number] 2.0.1.814313.3.579.2.356 1934 Unknown [id number] 2.0.1.456386.3.579.2.1286 1934 Unknown [id number] .0.1.091036.3.579.2.1286 1934 Unknown [id number] 2.0.1.675846.3.579.2.1286 1934 Unknown [id number] .0.1.972398.3.579.2.1244 Medicare Medicare [id number] Medicare Medicare [id number] Unknown Unknown Progress BC/BS [id number] Unknown [id number] 2.0.1.409712.3.579.2.531 Unknown [id number] 2.840.1.995791.3.579.2.531 Unknown [id number] 2.840.1.414525.3.579.2.531 Unknown [id number] 2.840.1.750775.3.579.2.531 Social History Date Type Detail Facility Start: 05-29-2023 End: 11-05-2023 No alcohol use No alcohol use -[facility] 250 DO Work Phone: Comment on above: 2 cups coffee daily; Start: 07-19-2019 End: 07-11-2023 Tobacco smoking status NHIS Never smoked tobacco (finding) [facility] Start: 1934 End: 1934 Sex Assigned At Male [facility] Start: 02-28-2022 Dept. of D ermatology Start: 03-31-2022 End: 07-11-2023 Tobacco use and exposure Smokeless tobacco non-user [facility] Start: 05-29-2023 End: 08-06-2023 Alcohol intake Ex-drinker (finding) [employer] [facility] Start: 05-29-2023 End: 11-05-2023 [facility] tem Has the [employer], or Yasuu threatened to shut off services in your [...] - these days [OSQ] Not at all [facility] Start: 1934 Sex Assigned At Not on file [facility] [employer] [facility] Start: 11-05-2023 Alcoholic beverage intake Lifetime non-drinker (finding) [facility] Work Phone: Start: 10-26-2023 End: 11-05-2023 Exposure to SARS-CoV-2 (event) Not sure [facility] Goals Date Patient Goal Desired Activity /State Clinical Notes 05-29-2023 to 11-05-2023 Renetta Langston MD - 11/05/2023 9:10 AM EDTPatilj Morin, DO - 08/06/2023 10:10 AM Francine Morin, DO - 05/29/2023 4:20 PM EST Note Date & Type Note Facility 11-05-2023 History of Present illness Narrative Subjective Rio Jacome is a 88 y.o. male Chief Complaint Follow-up HPI Patient returns in follow-up of problems as noted. In the interim he has done relatively well. He does, though, have some exertional fatigue and shortness of breath. On exam he is euvolemic. 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 He acknowledges this is happy with his current functional status. Review of coronary disease history demonstrates no symptoms such as those that preceded his diagnosis. Hypertension and hyperlipidemia are adequately controlled and I would deem his cardiomyopathy and/or heart failure functional class II. Recent ICD checks are reviewed and found to be satisfactory. Vitals: 11/05/23 0857 BP: 130/90 BP Location: Left arm Patient Position: Sitting Pulse: 82 Weight: 71.2 kg (157 lb) Height: 1.803 m (5' 11 ) Objective Physical Exam Constitutional: Appearance: Normal appearance. HENT: Nose: Nose normal. Neck: Vascular: No carotid bruit. Cardiovascular: Rate and Rhythm: Normal rate. Pulses: Normal pulses. Heart sounds: Normal heart sounds. Pulmonary: Effort: Pulmonary effort is normal. Abdominal: General: Bowel sounds are normal. Palpations: Abdomen is soft. Musculoskeletal: General: Normal range of motion. Cervical back: Normal range of motion. Right lower leg: No edema. Left lower leg: No edema. Skin: General: Skin is warm and dry. Neurological: General: No focal deficit present. Mental Status: He is alert. Psychiatric: Mood and Affect: Mood normal. Behavior: Behavior normal. Thought Content: Thought content normal. Judgment: Judgment normal. Allergies Aspirin Current Medications Current Outpatient Medications: carvedilol (Coreg) 6.25 mg tablet, TAKE 1 TABLET BY MOUTH TWICE DAILY WITH MEALS, Disp: 180 tablet, Rfl: 3 eplerenone (Inspra) 25 mg tablet, TAKE 1 TABLET BY MOUTH DAILY, Disp: 90 tablet, Rfl: 3 furosemide (Lasix) 20 mg tablet, Take 1 tablet (20 mg) by mouth once daily., Disp: , Rfl: lisinopril 2.5 mg tablet, TAKE 1 TABLET BY MOUTH DAILY, Disp: 90 tablet, Rfl: 3 rosuvastatin (Crestor) 20 mg tablet, TAKE 1 TABLET DAILY, Disp: 90 tablet, Rfl: 3 warfarin (Coumadin) 5 mg tablet, Take by mouth see administration instructions. As directed per PCP, Disp: , Rfl: Assessment/Plan 1. Arteriosclerotic cardiovascular disease (ASCVD) No recurrence of anginal symptomatology that preceded previous diagnosis 2. Essential hypertension Review of treatment strategy demonstrates good control 3. Mixed hyperlipidemia Review of treatment strategy demonstrates good control 4. Ventricular tachycardia (Multi) Risk of sudden mitigated with defibrillator implant 5. ICD (implantable cardioverter-defibrillator) in place Recent defibrillator checks reviewed and found to be satisfactory 6. Dilated cardiomyopathy (Multi) With functional class II CHF symptomatology. Stable. Pacemaker/Defibrillator follow up per routine Scribe Attestation By signing my name below, IAleena LPN Scribe attest that this documentation has been prepared under the direction and in the presence of Renetta Langston MD. Provider Attestation - Scribe documentation All medical record entries made by the Scribe were at my direction and personally dictated by me. I have reviewed the chart and agree that the record accurately reflects my personal performance of the history, physical exam, discussion and plan. documented in this encounter [facility] Work Phone: 11-05-2023 Instructions Dex Crump MA - 11/05/2023 9:10 AM EDT Please bring all medicines, vitamins, and herbal supplements with you when you come to the office. Prescriptions will not be filled unless you are compliant with your follow up appointments or have a follow up appointment scheduled as per instruction of your physician. Refills should be requested at the time of your visit. documented in this encounter [facility] Work Phone: 08-06-2023 History of Present illness Narrative Subjective [...] disease with (congestive) heart failure (CMS-HCC) - TSH; Future - Comprehensive metabolic panel; Future Blood pressure at goal. Continue current regimen. Check CMP and TSH. Hyperlipidemia, unspecified hyperlipidemia type - Lipid panel; Future Check lipid panel Stage 4 chronic kidney disease ([facility]) TSH; Future Check TSH and CMP. Type 2 diabetes mellitus without complication, without long-term current use of insulin ([facility]) - Hemoglobin A1c; Future - TSH; Future Check A1c. Hyperparathyroidism ([facility]) Check kidney function test. Malignant melanoma of scalp or neck ([facility] [facility] He does not want to go back to see the specialist. I am not sure what surgery the specialist had planned Longstanding persistent atrial fibrillation ([facility]) Seems to be in sinus rhythm now. Continue Eliquis Paroxysmal atrial fibrillation ([facility]) Microalbuminuric diabetic nephropathy ([facility]) Check labs documented in this encounter [employer] 05-29-2023 History of Present illness Narrative Subjective [...] orders for this visit: Paroxysmal atrial fibrillation ([facility]) - Protime & INR; Future New order for protime and INR given to the patient. I will also fax to the [facility]. Hypertensive 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 ([facility]) - Comprehensive metabolic panel; Future Check CMP. [...] complication, without long-term current use of insulin ([facility]) - Hemoglobin A1c; Future Check A1c Arteriosclerotic vascular disease - Lipid panel; Future Check lipid panel [facility] Evaluation note No assessment inform ation available [facility] Work Phone: Evaluation note N/A Dept. of Dermato logy Evaluation note Diagnosis Paroxysmal atrial fibrillation ([facility])- Primary Atrial fibrillation Hypertensive 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 ([facility]) Essential hypertension Unspecified essential hypertension Hypothyroidism, unspecified type Type 2 diabetes mellitus without complication, without long-term current use of insulin ([facility]) Arteriosclerotic vascular disease Generalized and unspecified atherosclerosis documented in this encounter [facility] Diagnosis Longstanding persistent atrial fibrillation ([facility])- Primary documented in this encounter [facility]* Diagnosis Hypertensive heart and [...] fibrillation (CMS-HCC) Atrial fibrillation Microalbuminuric diabetic nephropathy ([facility]) documented in this encounter [facility]* Diagnosis Type 2 diabetes mellitus without complication, without long-term current use of insulin ([facility])- Primary 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) documented in this encounter [facility]* Diagnosis Arteriosclerotic cardiovascular disease (ASCVD)- Primary Unspecified cardiovascular disease Essential hypertension Unspecified essential hypertension Mixed hyperlipidemia Ventricular tachycardia (Multi) Paroxysmal ventricular tachycardia ICD (implantable cardioverter-defibrillator) in place Dilated cardiomyopathy (Multi) Other primary cardiomyopathies Ischemic cardiomyopathy Other specified forms of chronic ischemic heart disease documented in this encounter [facility] Work Phone: History of Present illness Narrative* [...] the above we will continue as is. -[facility] 250 DO Work Phone: History of [...] the above we will continue as is. [facility] Work Phone: History of Present [...] the above we suggest [facility] 250 DO Work Phone: History of Present [...] significant cardiac hx with decreased cardiac function [facility] Work Phone: History of Present illness NarrativePatient [...] we believe his cardiac status to be stable.[facility] Work Phone: History of Present [...] we suggested continued therapy as before without change.[facility] Work Phone: InstructionsNot on filedocumented in this encounter [facility] System[facility]ructionsNot on filedocumented in this encounter [facility] System[facility]ructionsNot on filedocumented in this encounter [facility] System[facility]ructionsNot on filedocumented in this encounter [facility] System[facility] for referral (narrative)* Name Reason for referral NA NA Dept. of Dermatology Reason for referral (narrative)* Consultation (Routine) - Authorized Specialty Diagnoses / Procedures Referred By [employer]uvia ware Referred To Contact Cardiology Diagnoses Arteriosclerotic cardiovascular disease (ASCVD) Procedures Follow Up In Cardiology Renetta Langston MD [address] [facility] [address], [address] [address] Roslyn Mckenzie MD [facility] [facility], [address] [address] Referral ID Status Reason Start Date Expiration Date V isits Requested Visits Authorized [id number] Authorized 11/05/2023 11/04/2024 1 1 T [facility] Work Phone: Summary Purpose Family History No Family History [...] Unknown Diabetes mellitus Unknown Malignant neoplasm Unknown Relationship Condition Age at Onset Recorded Date/T stacey father Unknown Heart disease Unknown mother Unknown Diabetes mellitus Unknown Malignant neoplasm Unknown [...] section and content) DATE CREATED AUTHOR 08/08/2019 [facility] DATE CREATED AUTHOR AUTHOR'S ORGANIZ ATION 02/27/2020 [place] [facility] DATE CREATED AUTHOR AUTHOR'S ORGANIZ ATION 08/24/2021 [facility] DATE CREATED AUTHOR AUTHOR'S ORGANIZ ATION 10/27/2022 [facility] DATE CREATED AUTHOR AUTHOR'S ORGANIZ ATION 01/13/2023 [facility] DATE CREATED AUTHOR AUTHOR'S ORGANIZ ATION 01/14/2023 [employer] DATE CREATED AUTHOR AUTHOR'S ORGANIZ ATION 08/06/2023 [facility] DATE CREATED AUTHOR AUTHOR'S ORGANIZ ATION 08/07/2023 [facility] DATE CREATED AUTHOR AUTHOR'S ORGANIZ ATION 11/05/2023 [facility] DATE CREATED AUTHOR AUTHOR'S ORGANIZ ATION 12/29/2023 [facility] Care Teams (unrecognized sec tion and content) Team Status: Active Member Role Status Dates Phil Morin DO Primary Care Provider Active Team Status: Inactive Member Role Status Dates Phil Morin DO Primary Care Provider Active Renetta Langston MD Attending Provider Active Regional Director Relationship Specialty Start Date End Date Phil Morin DO [address], [place] [address] PCP - General Family Medicine 03/07/22 Team Status: Inactive Member Role Status Dates Phil Morin DO Primary Care Provider Active Start: June 28, 2023 End: June 28, 2023 Renetta Langston MD Attending Provider Active Start: June 28, 2023 End: June 28, 2023 Regional Director Relationship Specialty Start Date End Date RonnellbretPhil DO [address], [place] [address] PCP - General Family Medicine 03/07/22 Regional Director Relationship Specialty Start Date End Date PatiencePhil [address], [place] [address] PCP - General Family Medicine 03/07/22 Regional Director Relationship Specialty Start Date End Date RonnellbretPhil [address], [place] [address] PCP - General Family Medicine 03/07/22 Regional Director Relationship Specialty Start Date End Date RonnellbretPhil DO [address], [place] [address] PCP - General Family Medicine 03/07/22 Team Status: Inactive Member Role Status Dates Phil Morin DO Primary Care Provider Active Start: September 27, 2023 End: September 27, 2023 Renetta Langston MD Attending Provider Active Start: September 27, 2023 End: September 27, 2023 Regional Director Relationship Specialty Start Date End Date Patience Phil Forrest [address], [place] [address] PCP - General 05/06/14 Team Status: Inactive Member Role Status Dates Phil Morin DO Primary Care Provider Active Start: December 27, 2023 End: December 27, 2023 Renetta Langston MD Attending Provider Active Start: December 27, 2023 End: December 27, 2023 Goals (unrecognized section and content) [...] encounterGoals may be documented in an alternate sectionGoals may be documented in an alternate section Reason for Visit (unrecogniz ed section and content) Reason Comments concerns about meds and blood pressure Reason Comments Hypertension Hyperlipidemia Reason Comments Follow-up 9m FOR RECORDS PERTAINING TO PATIENTS WHO ARE [...] BE BASED ON THE PRIMARY CLINICAL RECORDS. [employer] provides no warranty or guarantee of the accuracy or completeness of information in this document.
[2024-01-03 09:18] LABS: INR 3.15; Prothrombin Time 29.8 sec (9.0-11.6)
== END 2024-01-03 08:41 | disposition home or self-care (01) ==
LOC: LAB 08:42
PROVIDERS: PCP Family Medicine; Visit Provider Family Medicine
DX: I48.11 Longstanding persistent atrial fibrillation (principal)
CPT/HCPCS: 36415; 85610

== ENCOUNTER 2024-01-07 18:20 | Emergency (ER) | payer MEDICARE, SELFPAY ==
--- OUTSIDE RECORDS SUMMARY | 2024-01-07 18:28 | XMS_ITS | CCD ---
Author Organization [facility] Providers Care Antique Jewel[employer] Repairer Name Role Phone Phil Morin Unavailable Unavailable Unavailable Ronnelllong, DO Villarreal Primary Care Provider MD Renetta Langston Attending Provider Karlie Craig Unavailable Unavailable Florentino Hernadez Unavailable Unavailable Furlong, DO Villarreal Primary Care Provider MD Renetta Langston Attending Provider Gadiel Estevez Unavailable Unavailable Furlong, DO Phil Primary Care Provider [phone] MD Renetta Langston Attending Provider SUSANNAH, DR JARON Roger Admitting Unavailable KUNS, DR JARON Roger Consulting Unavailable KUNShalonda, DR JARON Roger Attending Unavailable FURLONG, DR HPIL Soliz Primary Care Unavailable FURLONG, DR PHIL [...] DR PHIL Soliz Admitting Unavailable FURLONG, DR HPIL Soliz Attending Unavailable FURLONG, DR PHIL Soliz Primary Care Unavailable FURLONG, DR PHIL Soliz Attending Unavailable FURLONG, DR PHIL Soliz Admitting Unavailable FURLONG, DR PHIL Soliz Primary Care Unavailable FURLONG, DR PHIL Soliz Consulting Unavailable HernadezFlorentino palma Attending Unavailable uener, Dr. Ketan Andrews Referring Unavaila ble Furlong, Dr. Phil Forrest [facility] Care Unava ilable Furlong, Dr. Phil Forrest [facility] Care Unava ilable Furlong, Dr. Phil Forrest [...] Provider Furlong Phil PATEL Primary Care Provider [phone] Furdestinyng, DO Phil Primary Care Provider MD Renetta Langston Attending Provider FURLONG, PHIL G Attending Unavailable FURLONG, PHIL G Referring Unavailable FURLONG, PHIL G Primary Care Unavailable FURLONG, PHIL G Attending Unavailable FURLONG, PHIL G Referring Unavailable FURLONG, PHIL G Primary Care Unavailable FURLONG, PIHL G Referring Unavailable FURLONG, PHIL G Primary Care Unavailable Furlong, DO Phil Primary Care Provider [phone] MD Renetta Langston Attending Provider Furdestinyng Phil PATEL Primary Care Provider RENETTA LANGSTON Attending Unavailable PHIL MORIN Primary Care Unavailab le Furlong, DO Phil Primary Care Provider [phone] MD Renetta Langston Attending Provider [facility] Unavailable Renetta Langston Admitting Unavail able Renetta Langston Attending Unavail able [place], Phil Primary Care Unavailable Renetta Langston Admitting Unavail able Renetta Langston Attending Unavail able Renetta Langston Admitting Unavail able Renetta Langston Attending Unavail able [place], Phil Primary Care Unavailable Renetta Langston Attending Unavail able Renetta Langston Admitting Unavail able [facility] Primary [facility] Unavailable Allergies Allergy Classification Reported Allergen(s) Allergy Type Date of Onset Reaction(s) Facility (19 sources) Aspirin; Translations: [aspirin] Drug Allergy 2 Other (See Comments), GI bleeding -[facility] 250 DO Work Phone: (1 source) [...] 07-19-2019 End: 11-05-2023 Lisinopril Active TABLET Feb [facility] 2019 1:00am rosuvastatin calcium 20 mg oral tablet (20 sources) HMG-CoA Reductase Inhibitor Start: 11-05-2023 take 1 tablet by mouth once daily rosuvastatin (Crestor) 20 mg tablet Indications: Arteriosclerotic cardiovascular disease (ASCVD) , Mixed hyperlipidemia Take 1 tablet (20 mg) by mouth once daily. 90 tablet 3 11/05/2023 Active Start: 07-19-2019 End: 11-05-2023 Rosuvastatin Active TABLET F [facility] 2019 1:00am warfarin sodium 5 mg oral [...] source) Taking high risk medication; Translations: [Other prison (current) drug therapy] Onset: 03-01-2023 03-01-2023 Episodic [...] 08-06-2023 Albumin [Mass/Vol] 4.2 g/dL Normal 3.2-5.3 [facility] Comment on above: Performed By: #### Gorge DELANEY, 68001-5, 6-3 #### [facility] ([id number]) [address], [address] [place] [address] ALP [Catalytic activity/Vol] 77 U/L Normal 39-130 [facility] Comment on above: Performed By: #### Gorge DELANEY, 64971-6, 6-3 #### [facility] ([id number]) [address], [address] [place] [address] ALT [Catalytic activity/Vol] 11 U/L Normal 0-40 [facility] Comment on above: Performed By: #### Gorge DELANEY, 75877-4, 3015-3 #### [facility] ([id number]) [address], [address] [place] [address] Anion gap [Moles/Vol] 8 mmol/L Normal 5-15 [facility] Comment on above: Performed By: #### Gorge DELANEY, 31813-5, 6-3 #### [facility] ([id number]) [address], [address] [place] [address] AST [Catalytic activity/Vol] 19 U/L Normal 0-41 [facility] Comment on above: Performed By: #### Gorge DELANEY, 07604-0, 6-3 #### [facility] ([id number]) [address], [address] [place] [address] Bilirubin [Mass/Vol] 0.5 mg/dL Normal 0.3-1.2 [facility] Comment on above: Performed By: #### Gorge DELANEY, 45425-8, 6-3 #### [facility] ([id number]) [address], [address] [place] [address] Calcium [Mass/Vol] 9.1 mg/dL Normal 8.5-10.5 [facility] Comment on above: Performed By: #### C RHETT, 54985-6, 3015-3 #### [facility] ([id number]) [address], [address] [place] [address] Chloride [Moles/Vol] 106 mmol/L Normal 98-109 [facility] Comment on above: Performed By: #### Gorge DELANEY, 01961-6, 3015-3 #### [facility] ([id number]) [address], [address] [place] [address] CO2 [Moles/Vol] 26 mmol/L Normal 22-32 [facility] Comment on above: Performed By: #### Gorge DELANEY, 60827-8, 3015-3 #### [facility] ([id number]) [address], [address] [place] [address] Creatinine [Mass/Vol] 2.12 mg/dL High 0.60-1.30 [facility] Comment on above: Result Comment: METH OD TRACEABLE TO IDMS STANDARD Performed By: #### Gorge DELANEY, 14641-4, 3015-3 #### [facility] ([id number]) [address], [address] [place] [address] GFR/1.73 sq M.predicted among non-blacks MDRD (S/P/Bld) [Vol rate/Area] 29 mL/min/{1.73_m2} Low >59 [facility] Comment on above: Result Comment: Reported eGFR is based on the CKD-EPI 2020 equation that does not use a race coefficient. Performed By: #### Gorge DELANEY, 53199-1, 3015-3 #### [facility] ([id number]) [address], [address] [place] [address] Glucose [Mass/Vol] 113 mg/dL High 65-99 [facility] Comment on above: Performed By: #### Gorge DELANEY, 56189-3, 6-3 #### [facility] ([id number]) [address], [address] [place] [address] Potassium [Moles/Vol] 4.8 mmol/L Normal 3.5-5.0 [facility] Comment on above: Performed By: #### Gorge DELANEY, 91799-7, 6-3 #### [facility] ([id number]) [address], [address] [place] [address] Protein [Mass/Vol] 7.0 g/dL Normal 6.0-8.0 [facility] Comment on above: Performed By: #### Gorge DELANEY, 31205-8, 6-3 #### [facility] ([id number]) [address], [address] [place] [address] Sodium [Moles/Vol] 140 mmol/L Normal 134-146 [facility] Comment on above: Performed By: #### Gorge DELANEY, 10583-7, 6-3 #### [facility] ([id number]) [address], [address] [place] [address] Urea nitrogen [Mass/Vol] 24 mg/dL Normal 5-27 [facility] Comment on above: Performed By: #### Gorge DELANEY, 11529-2, 6-3 #### [facility] ([id number]) [address], [address] [place] [address] Comprehensive metabolic pane donato 08-06-2023 Albumin [Mass/Vol] 4.2 g/dL 3.2 - 5.3 g/dL [facility] ALP [Catalytic activity/Vol] 77 U/L 39 - 130 U/L [facility] ALT No additional P-5'-P [Catalytic activity/Vol] 11 U/L 0 - 40 U/L [facility] Anion gap [Moles/Vol] 8 mmol/L 5 - 15 mmol/L [facility] AST [Catalytic activity/Vol] 19 U/L 0 - 41 U/L [facility] Bilirubin [Mass/Vol] 0.5 mg/dL 0.3 - 1 .2 mg/dL [facility] Calcium [Mass/Vol] 9.1 mg/dL 8.5 - 10. 5 mg/dL [facility] Chloride [Moles/Vol] 106 mmol/L 98 - 10 9 mmol/L [facility] CO2 [Moles/Vol] 26 mmol/L 22 - 32 mmol/L [facility] Creatinine [Mass/Vol] 2.12 mg/dL High 0.60 - 1.30 mg/dL [facility] Comment on above: METHOD TRACEABLE TO [facility] STANDARD eGFR (CKD-EPI)non-race dependent 29 Low - PINF [facility] Comment on above: Reported eGFR is based on the CKD-EPI 2020 equation that does not use a race coefficient. Glucose [Mass/Vol] 113 mg/dL High 65 - 99 mg/dL [facility] Potassium [Moles/Vol] 4.8 mmol/L 3.5 - 5.0 mmol/L [facility] Protein [Mass/Vol] 7.0 g/dL 6.0 - 8.0 g/dL [facility] Sodium [Moles/Vol] 140 mmol/L 134 - 146 mmol/L [facility] Urea nitrogen [Mass/Vol] 24 mg/dL 5 - 27 mg/dL [facility] HGB A1C (GLYCO-HGB)on 2023 Glucose [Mass/Vol] 140 mg/dL Normal [facility] Comment on above: Performed By: #### C , 43412-0, 3016-3 #### [facility] ([id number]) [address], [address] [place] [address] HbA1c (Bld) [Mass fraction] 6.5 % High 4.4-5.6 [facility] Comment on above: Result Comment: NOTE ADA Guidelines Result HgbA1c Normal : less than 5.7 % Prediabetes : 5.7 % to 6.4 % Diabetes : > 6.4 % Use with caution in patients with abnormal hemoglobin variants as the half-life of red blood cells and in vivo glycation rates are affected. Performed By: #### C , 99872-1, 3016-3 #### [facility] ([id number]) [address], [address] [place] [address] Hemoglobin A1con 08-06-2023 Average glucose Estimated from glycated hemoglobin (Bld) [Mass/Vol] 140 mg/dL [facility] HbA1c (Bld) [Mass fraction] 6.5 % High 4.4 - 5.6 % [facility] Comment on above: NOTE ADA Guidelines Result HgbA1c Normal : less than 5.7 % Prediabetes : 5.7 % to 6.4 % Diabetes : > 6.4 % Use with caution in patients with abnormal hemoglobin variants as the half-life of red blood cells and in vivo glycation rates are affected. Interpretation and review of laboratory results Abnormal [facility] Lipid 1996 panelon Cholesterol [Mass/Vol] 91 mg/dL Low 150 - 200 mg/dL [facility] Cholesterol in HDL [Mass/Vol] 39 mg/dL Low 39 - PINF mg/dL [facility] Comment on above: HDL <40 mg/dL - High Risk HDL > or = 40mg/dL- Desirable HDL >60 mg/dL - Negative Risk Cholesterol in LDL [Mass/Vol] 18 mg/dL NINF - 130 mg/dL [facility] Comment on above: LDL <100 mg/dL - Desirable LDL >160 mg/dL - High Risk Cholesterol in VLDL [Mass/Vol] 34 mg/dL High 0 - 30 mg/dL [facility] Cholesterol.total/Chol esterol in HDL [Mass ratio] 2.3 {ratio} 1.0 - 5.0 [facility] Triglyceride [Mass/Vol] 168 mg/dL High 27 - 150 mg/dL [facility] Cholesterol [Mass/Vol] 91 mg/dL Low 150-200 [facility] Comment on above: Performed By: #### Gorge DELANEY, 27606-9, 3016-3 #### [facility] ([id number]) [address], [address] [place] [address] Cholesterol in HDL [Mass/Vol] 39 mg/dL Low >39 [facility] Comment on above: Result Comment: HDL <40 mg/dL - High Risk HDL > or = 40mg/dL- Desirable HDL >60 mg/dL - Negative Risk Performed By: ###[place], [address]-1, 6-3 #### [facility] ([id number]) [address] [place] [address] Cholesterol in LDL [Mass/Vol] 18 mg/dL Normal <130 [facility] Comment on above: Result Comment: LDL <100 mg/dL - Desirable LDL >160 mg/dL - High Risk Performed By: ###[place], [address]-0, 6-3 #### [facility] ([id number]) [address] [place] [address] Cholesterol in VLDL [Mass/Vol] 34 mg/dL High 0-30 [facility] Comment on above: Performed By: #### Gorge DELANEY, 94152-9, 6-3 #### [facility] ([id number]) [address], [address] [place] [address] CHOLESTEROL:HDL 2.3 Normal 1.0-5.0 [facility] Comment on above: Performed By: #### Gorge DELANEY, 58804-1, 3016-3 #### [facility] ([id number]) [address] [place] [address] Triglyceride [Mass/Vol] 168 mg/dL High 27-150 [facility] Comment on above: Performed By: #### Gorge DELANEY, 84690-6, 3016-3 #### [facility] ([id number]) [address] [place] [address] No Panel Informationon 08-05 Interpretation and review of laboratory results Abnormal [facility] TSHon 08-06-2023 TSH Qn 3.12 m[IU]/L [facility] TSH Qnon 08-06-2023 [facility] TSH 3.12 uIU/mL Normal 0.49-4.67 [facility] Comment on above: Performed By: #### Gorge DELANEY, 15607-7, 3016-3 #### [facility] ([id number]) [address] [place] [address] Protime & INRon 07-18-2023 External Inr 2.02 [facility] External Protime 20.6 [facility] Office Visit (Cardiology)on 01-12-2023 Follow-up visit Diagnoses/Problems [...] a smoker Tobacco Use Screening; Status:Complete; Done: [id number] Ventricular tachycardia IO EKG Electrocardiogram- 12 Lead; Status:Complete; Done: [id number] Patient Instructions Please bring all medicines, vitamins, [...] negative for complaint. Vitals Vital Signs Recorded: [id number] 02:17PM Heart Rate72, Apical Gaajlxzc111, RUE, Sitting Iwkbvltfe25, RUE, Sitting Height5 ft 9 in Sgrcpv177 lb BMI Txiwklymxr01.78 kg/m2 BSA Calculated1.88 Tobacco Useb) No Falls [...] a) No falls within the last year [facility] 250 DO Work Phone: Tobacco use status CP b) No [facility] 250 DO Work Phone: PROTIMEon 10-17-2022 INR Coag (PPP) [Relative time] 2.38 {INR} Normal [facility] Comment on above: Performed By: #### P T #### [facility] [address] [place] [address] Dr. Sariah Boyle INR GUIDELINES SEE BELOW Normal [facility] Comment on above: Result Comment: NHUNG RED INR: 2.0 - 3.0 CONDITIONS NOT LISTED BELOW 2.5 - 3.5 FOR PROSTHETIC HEART VALVE REPLACEMENT 2.5 - 3.5 RECURRENT THROMBOSIS Performed By: #### P T #### [facility] [address] [place] [address] Dr. Sariah Boyle PT Coag (PPP) [Time] 24.0 s Critically high 9.0-11.6 [facility] Comment on above: Performed By: #### P T #### [facility] [address] [place] [address] Dr. Sariah Boyle PROTIMEon 09-15-2022 INR Coag (PPP) [Relative time] 2.18 {INR} Normal [facility] Comment on above: Performed By: #### P T #### [facility] [address] [place] [address] Dr. Sariah Boyle INR GUIDELINES SEE BELOW Normal [facility] Comment on above: Result Comment: NHUNG RED INR: 2.0 - 3.0 CONDITIONS NOT LISTED BELOW 2.5 - 3.5 FOR PROSTHETIC HEART VALVE REPLACEMENT 2.5 - 3.5 RECURRENT THROMBOSIS Performed By: #### P T #### [facility] [address] [place] [address] Dr. Sariah Boyle PT Coag (PPP) [Time] 22.1 s Critically high 9.0-11.6 [facility] Comment on above: Performed By: #### P T #### [facility] [address] [place] [address] Dr. Sariah Boyle PROTIMEon 08-15-2022 INR Coag (PPP) [Relative time] 2.44 {INR} Normal [facility] Comment on above: Performed By: #### P T #### [facility] [address] [place] [address] Dr. Sariah Boyle INR GUIDELINES SEE BELOW Normal [facility] Comment on above: Result Comment: NHUNG RED INR: 2.0 - 3.0 CONDITIONS NOT LISTED BELOW 2.5 - 3.5 FOR PROSTHETIC HEART VALVE REPLACEMENT 2.5 - 3.5 RECURRENT THROMBOSIS Performed By: #### P T #### [facility] [address] [place] [address] Dr. Sariah Boyle PT Coag (PPP) [Time] 24.6 s Critically high 9.0-11.6 [facility] Comment on above: Performed By: #### P T #### [facility] [address] [place] [address] Dr. Sariah Boyle PROTIMEon 07-18-2022 INR Coag (PPP) [Relative time] 2.33 {INR} Normal [facility] Comment on above: Performed By: #### P T #### [facility] [address] [place] [address] Dr. Sariah Boyle INR GUIDELINES SEE BELOW Normal [facility] Comment on above: Result Comment: NHUNG RED INR: 2.0 - 3.0 CONDITIONS NOT LISTED BELOW 2.5 - 3.5 FOR PROSTHETIC HEART VALVE REPLACEMENT 2.5 - 3.5 RECURRENT THROMBOSIS Performed By: #### P T #### [facility] [address] [place] [address] Dr. Sariah Boyle PT Coag (PPP) [Time] 23.5 s Critically high 9.0-11.6 [facility] Comment on above: Performed By: #### P T #### [facility] [address] [place] [address] Dr. Sariah Bolye Office Visit (Cardiology)on 07-14-2022 Follow-up visit Diagnoses/Problems [...] negative for complaint. Vitals Vital Signs Recorded: 81Ykc7833 03:41PM Heart Rate80, L Radial Analdjgp584, LUE, Sitting Ysdtzztwm20, LUE, Sitting Height5 ft 9 in Crqfti460 lb BMI Sbilzcvumb87.92 kg/m2 BSA Calculated1.89 Tobacco Useb) No PHQ-2 [...] Screening.on 023 Adult depression screening assessment No [facility] 250 DO Work Phone: Fall risk assessment a) No falls within the last year [facility] 250 DO Work Phone: Tobacco use status [facility] b) No [facility] 250 DO Work Phone: PROTIMEon 07-04-2022 INR Coag (PPP) [Relative time] 1.91 {INR} Normal [facility] Comment on above: Performed By: #### P T #### [facility] [address] [address] [address] Sariah Boyle INR GUIDELINES SEE BELOW Normal [facility] Comment on above: Result Comment: NHUNG RED INR: 2.0 - 3.0 CONDITIONS NOT LISTED BELOW 2.5 - 3.5 FOR PROSTHETIC HEART VALVE REPLACEMENT 2.5 - 3.5 RECURRENT THROMBOSIS Performed By: #### P T #### [facility] [address] [address] [address] Sariah Boyle PT Coag (PPP) [Time] 19.5 s Critically high 9.0-11.6 [facility] Comment on above: Performed By: #### P T #### [facility] [address] [address] [address] Sariah Boyle Dermatopathologyon Dermatopathology Name RIO [...] determined by the Department of Pathology at [facility]. The FDA does not require this [...] appropriately. Electronically Signed Out By RIGO CHRISTIAN MD/[facility] By the signature on this report, the individual or group listed as making the Final Interpretation/Diagno sis certifies that they have reviewed this case. 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 ([facility]). Specimens Submitted As: A: SKIN, SCALP STAGE II A B: SKIN, SCALP STAGE II B Gross Description: A: Received in formalin, labeled A, is a camara, semi-circular, ellipsoid piece of skin measuring 55u7x4fv, oriented by the surgeon with orange ink on the bisected margin and blue ink marking the radii on either side of the central black-inked margin. The specimen is embedded en face in toto in one block. B: Received in formalin, labeled B, is a camara, semi-circular, ellipsoid piece of skin measuring 08f8x4sb, oriented by the surgeon with orange ink on the bisected margin and green ink marking the radii on either side of the central black-inked margin. The specimen is embedded en face in toto in one block. dcp/06/16/2022 The assays/tests were performed with appropriate positive and negative controls which stained appropriately. [facility] [id number] [place] [address] Normal [facility] Comment on above: Performed By: #### D #### Dermatopathology No Panel Informationon 06-[address] [address] DO Work Phone: PROTIMEon 06-07-2022 INR Coag (PPP) [Relative time] 1.44 {INR} Normal [facility] Comment on above: Performed By: #### P T #### [facility] [address] [place] [address] Dr. Sariah Boyle INR GUIDELINES SEE BELOW Normal [place] Comment on above: Result Comment: NHUNG RED INR: 2.0 - 3.0 CONDITIONS NOT LISTED BELOW 2.5 - 3.5 FOR PROSTHETIC HEART VALVE REPLACEMENT 2.5 - 3.5 RECURRENT THROMBOSIS Performed By: #### P T #### [facility] [address] [address] [address] Sariah Boyle PT Coag (PPP) [Time] 15.0 s Critically high 9.0-11.6 [facility] Comment on above: Performed By: #### P T #### [facility] [address] [address] [address] Sariah Boyle Dermatopathologyon 3 Dermatopathology Name RIO JACOME Pathologist: RIGO CHRISTIAN MD Date of Procedure: 06/06/2022 Date Received: 06/07/2022 Date Reported 06/12/2022 Submitting Physician: FLORENTINO HERNADEZ MD, Location: [facility] Other External # FINAL DIAGNOSIS A. SKIN, [...] M.D. Electronically Signed Out By RIGO CHRISTIAN MD/[facility] By the signature on this report, the individual or group listed as making the Final Interpretation/Diagno sis certifies that they have reviewed this case. Diagnostic interpretation performed at D[facility]atopath Lab [id number], [facility] [address] Microscopic Description: A. Microscopic examination reveals a [...] lentigo stage I maligna type. Path #: [id number]. A1, B1, C1, D1, E1, F1, G1. Excision. ([facility]). Specimens Submitted As: A: SKIN, OCCIPITAL SCALP A1 B: SKIN, OCCIPITAL SCALP B1 C: SKIN, OCCIPITAL SCALP C1 D: SKIN, OCCIPITAL SCALP D1 E: SKIN, OCCIPITAL SCALP E1 F: SKIN, OCCIPITAL SCALP F1 G: SKIN, OCCIPITAL SCALP G1 DEBULK Gross Description: A: Received in formalin, labeled A1, is a camara, ellipsoid piece of skin measuring 40a0t6rb, oriented by the surgeon with yellow ink on one margin, orange ink on the opposite margin, and black ink marking the margin opposite the surgical margin. The specimen is embedded en face in toto in one block. B: Received in formalin, labeled B1, is a camara, ellipsoid piece of skin measuring 10b7v5ml, oriented by the surgeon with orange ink on one surgical margin, green ink on the opposite margin, black ink marking the margin opposite the surgical margin. The specimen is embedded en face in toto in one block. C: Received in formalin, labeled C1, is a camara, ellipsoid piece of skin measuring 24t2y5ym, oriented by the surgeon with green ink on one margin, yellow ink on the opposite margin, and black ink marking the margin opposite the surgical margin. The specimen is embedded en face in toto in one block. D: Received in formalin, labeled D1, is a camara, ellipsoid piece of skin measuring 95q6j2xw, oriented by the surgeon with yellow ink on one margin, red ink on the opposite margin, and black ink marking the margin opposite the surgical margin. E: Received in formalin, labeled E1, is a camara, ellipsoid piece of skin measuring 58u1u5dn, oriented by the surgeon with red ink on one margin, blue ink on the opposite margin, and black ink marking the margin opposite the surgical margin. F: Received in formalin, labeled F1, is a camara, ellipsoid piece of skin measuring [id number], oriented by the surgeon with blue ink on one margin, yellow ink on the opposite margin, and black ink marking the margin opposite the surgical margin. G: Received in formalin, labeled G1, (more content not included)... Normal [facility] Comment on above: Performed By: #### D #### Dermatopathology No Panel Informationon 06-06 [facility] 250 DO Work Phone: PROTIMEon 05-08-2022 INR Coag (PPP) [Relative time] 2.06 {INR} Normal [facility] Comment on above: Performed By: #### P T #### [facility] [address] [place] [address] Dr. Sariha Boyle INR GUIDELINES SEE BELOW Normal [place] Comment on above: Result Comment: NHUNG RED INR: 2.0 - 3.0 CONDITIONS NOT LISTED BELOW 2.5 - 3.5 FOR PROSTHETIC HEART VALVE REPLACEMENT 2.5 - 3.5 RECURRENT THROMBOSIS Performed By: #### P T #### [facility] [address] [place] [address] Dr. Sariah Boyle PT Coag (PPP) [Time] 21.2 s Critically high 9.0-11.6 [facility] Comment on above: Performed By: #### P T #### [facility] [address] [place] [address] Dr. Sariah Boyle PROTIMEon 04-07-2022 INR Coag (PPP) [Relative time] 3.37 {INR} Normal [facility] Comment on above: Performed By: #### P T #### [facility] [address] [place] [address] Dr. Sariah Boyle INR GUIDELINES SEE BELOW Normal [facility] Comment on above: Result Comment: NHUNG RED INR: 2.0 - 3.0 CONDITIONS NOT LISTED BELOW 2.5 - 3.5 FOR PROSTHETIC HEART VALVE REPLACEMENT 2.5 - 3.5 RECURRENT THROMBOSIS Performed By: #### P T #### [facility] [address] [place] [address] Dr. Sariah Boyle PT Coag (PPP) [Time] 33.6 s Critically high 9.0-11.6 [facility] Comment on above: Performed By: #### P T #### [facility] [address] [place], [place] [address] Dr. Sariah Boyle Initial Visit (Otolaryngolog y)on [...] melanoma of the scalp History of Present Bebnbni11-gepe-tyr man referred by Dr. Hernadez for management [...] Recorded: 03Apr2022 02:27PM Height5 ft 9 in Hroyew826 lb BMI Owhscremfv03.92 kg/m2 BSA Calculated1.89 Tobacco Useb) No Falls [...] Apr 19 2022 6:13AM EST (Author) Normal [facility] Tobacco Screening.on 022 Fall risk assessment a) No falls within the last year [facility]-Otolaryngol [facility]-[place] Work Phone: Tobacco use status [facility] b) No [facility] Work Phone: Dermatopathologyon Dermatopathology Name RIO JACOME [...] Findings: Associated nevus: Dermal nevus ADDITIONAL TESTING [employer] Surveillance Officer 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 Electronically Signed Out By RIGO CHRISTIAN MD/[facility] By the signature on this report, the individual or group listed as making the Final Interpretation/Diagno sis certifies that they have reviewed this case. Diagnostic interpretation performed at [facility]atopath [facility] [id number] [place], [place] [id number], [facility] [address] Clinical History: Previously parietal biopsy. Narrow excisional biopsy today for confirmation of depth. ([place] office). Specimens Submitted As: A: SKIN, OCCIPITAL SCALP Gross Description: Received in formalin is one camara-brown, ellipsoid piece of skin measuring [id number]. The specimen is inked and embedded in toto in four blocks. The tips are in Block A1. dcp/03/25/2022 [facility] [place] [id number] [address] Normal [facility] Comment on above: Performed By: #### D #### Dermatopathology No Panel Informationon 03-23 [facility] Work Phone: PROTIMEon 03-06-2022 INR Coag (PPP) [Relative time] 2.08 {INR} Normal [facility] Comment on above: Performed By: #### P T #### [facility] [address] [place] [address] Dr. Sariah Boyle INR GUIDELINES SEE BELOW Normal [facility] Comment on above: Result Comment: NHUNG RED INR: 2.0 - 3.0 CONDITIONS NOT LISTED BELOW 2.5 - 3.5 FOR PROSTHETIC HEART VALVE REPLACEMENT 2.5 - 3.5 RECURRENT THROMBOSIS Performed By: #### P T #### [facility] [address] [place] [address] [address] Sariah Boyle PT Coag (PPP) [Time] 21.4 s Critically high 9.0-11.6 [facility] Comment on above: Performed By: #### P T #### [facility] [address] [place] [address] [address] Sariah Boyle Dermatopathologyon Dermatopathology Name: VIANEY JACOME Pathologist: RIGO CHRISTIAN MD Date of Procedure: 02/16/2022 Date Received: 02/16/2022 Date Reported 02/21/2022 Submitting Physician: FLORENTINO HERNADEZ MD, Location: [facility] ([facility] Copy To/Referring/Attendin g: MD GADIEL REEVES FINAL DIAGNOSIS 2 SLIDES, [facility] #[id number] (BX: 02/06/2022) SKIN, OCCIPITAL SCALP, SHAVE BIOPSY: [...] M.D. CANCER SUMMARY REPORT A. 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 are two slides labeled [id number] (BX: 02/06/2022) along with the corresponding pathology report. Slide/Block Description 2 SLIDES, [id number]. Keep Slides: N Slides Returned: N Personal Consult: N Normal [facility] Comment on above: Performed By: #### D #### Dermatopathology PROTIMEon 02-03-2022 INR Coag (PPP) [Relative time] 1.83 {INR} Normal [facility] Comment on above: Performed By: #### P T #### [facility] [address] [place] [address] Dr. Sariah Boyle INR GUIDELINES SEE BELOW Normal [place] Comment on above: Result Comment: NHUNG RED INR: 2.0 - 3.0 CONDITIONS NOT LISTED BELOW 2.5 - 3.5 FOR PROSTHETIC HEART VALVE REPLACEMENT 2.5 - 3.5 RECURRENT THROMBOSIS Performed By: #### P T #### [facility] [address] [place] [address] Dr. Sariah Boyle PT Coag (PPP) [Time] 19.0 s Critically high 9.0-11.6 [facility] Comment on above: Performed By: #### P T #### [facility] [address] [place] [address] Dr. Sariah Boyle PROTIMEon 01-02-2022 INR Coag (PPP) [Relative time] 2.05 {INR} Normal [facility] Comment on above: Performed By: #### P T #### [facility] [address] [place] [address] Dr. Sariah Boyle INR GUIDELINES SEE BELOW Normal [place] Comment on above: Result Comment: NHUNG RED INR: 2.0 - 3.0 CONDITIONS NOT LISTED BELOW 2.5 - 3.5 FOR PROSTHETIC HEART VALVE REPLACEMENT 2.5 - 3.5 RECURRENT THROMBOSIS Performed By: #### P T #### [facility] [address] [place] [address] [address] Sariah Boyle PT Coag (PPP) [Time] 21.1 s Critically high 9.0-11.6 [facility] Comment on above: Performed By: #### P T #### [facility] [address] [place] [address] [address] Sariah Boyle Tobacco Screening.on 022 Adult depression screening assessment No [facility]ad 250 DO Work Phone: Fall risk assessment a) No falls within the last year [facility] 250 DO Work Phone: Tobacco use status [facility] b) No [facility] 250 DO Work Phone: PROTIMEon 12-02-2021 INR Coag (PPP) [Relative time] 2.22 {INR} Normal [facility] Comment on above: Performed By: #### P T #### [facility] [address] [place] [address] Dr. Sariah Boyle INR GUIDELINES SEE BELOW Normal [facility] Comment on above: Result Comment: NHUNG RED INR: 2.0 - 3.0 CONDITIONS NOT LISTED BELOW 2.5 - 3.5 FOR PROSTHETIC HEART VALVE REPLACEMENT 2.5 - 3.5 RECURRENT THROMBOSIS Performed By: #### P T #### [facility] [address] [place] [address] Dr. Sariah Boyle PT Coag (PPP) [Time] 22.8 s Critically high 9.0-11.6 [facility] Comment on above: Performed By: #### P T #### [facility] [address] [place] [address] Dr. Sariah Boyle PROTIMEon 11-18-2021 INR Coag (PPP) [Relative time] 1.95 {INR} Normal [facility] Comment on above: Performed By: #### P T #### [facility] [address] [place] [address] Dr. Sariah Boyle INR GUIDELINES SEE BELOW Normal [facility] Comment on above: Result Comment: NHUNG RED INR: 2.0 - 3.0 CONDITIONS NOT LISTED BELOW 2.5 - 3.5 FOR PROSTHETIC HEART VALVE REPLACEMENT 2.5 - 3.5 RECURRENT THROMBOSIS Performed By: #### P T #### [facility] [address] [place] [address] [address] Sariah Boyle PT Coag (PPP) [Time] 20.2 s Critically high 9.0-11.6 [facility] Comment on above: Performed By: #### P T #### [facility] [address] [place] [address] [address] Sariah Boyle COMPREHENSIVE METABOLIC PANE [place] 08-23-2021 Albumin [Mass/Vol] 4.1 g/dL Normal 3.6-5.1 [facility] Comment on above: Performed By: #### 1 0231, 7600 #### [facility] [place] [address] Plant Maintenance Technician: Jose Juan Arriola MD Albumin/Globulin [Mass ratio] 1.6 {ratio} Normal 1.0-2.5 [facility] Comment on above: Performed By: #### 1 0231, 7600 #### [facility] [place] [address] Plant Maintenance Technician: Jose Juan Arriola MD ALP [Catalytic activity/Vol] 61 U/L Normal 35-144 [facility] Comment on above: Performed By: #### 1 0231, 7600 #### [facility] [place] [address] Plant Maintenance Technician: Jose Juan Arriola MD ALT [Catalytic activity/Vol] 9 U/L Normal 9-46 [facility] Comment on above: Performed By: #### 1 0231, 7600 #### [facility] [place] [address] Plant Maintenance Technician: Jose Juan Arriola MD AST [Catalytic activity/Vol] 14 U/L Normal 10-35 [facility] Comment on above: Performed By: #### 1 0231, 7600 #### [facility] of [address], [address] [place] [address] Plant Maintenance Technician: Jose Juan Arriola MD Bilirubin [Mass/Vol] 0.6 mg/dL Normal 0.2-1.2 [facility] Comment on above: Performed By: #### 1 023, 7600 #### [facility] [place] [address] Plant Maintenance Technician: Jose Juan Arriola MD Calcium [Mass/Vol] 9.1 mg/dL Normal 8.6-10.3 [facility] Comment on above: Performed By: #### 1 023, 0 #### [facility] [place] [address] Plant Maintenance Technician: Jose Juan Arriola MD Chloride [Moles/Vol] 109 mmol/L Normal 98-110 [facility] Comment on above: Performed By: #### 1 230, 0 #### [facility] [place] [address] Plant Maintenance Technician: Jose Juan Arriola MD CO2 [Moles/Vol] 26 mmol/L Normal 20-32 [facility] Comment on above: Performed By: #### 1 230, 7600 #### [facility] [place] [address] Plant Maintenance Technician: Jose Juan Arriola MD Creatinine [Mass/Vol] 2.15 mg/dL High 0.70-1.[address] [facility] Comment on above: Result Comment: For patients >49 years of age, the reference limit for Creatinine is approximately 13% higher for people identified as -Argent[place]. Performed By: #### 1 023, 7600 #### [facility] [place] [address] Plant Maintenance Technician: Jose Juan Arriola MD eGFR NON-AFR. BHUTANESE 27 mL/min/1.73m2 Low > OR = 60 [facility] Comment on above: Performed By: #### 1 023, 7600 #### [facility] [address], [address] [place] [address] Plant Maintenance Technician: Jose Juan Arriola MD GFR/1.73 sq M.predicted among blacks MDRD (S/P/Bld) [Vol rate/Area] 31 mL/min/{1.73_m2} Low > OR = 60 [facility] Comment on above: Performed By: #### 1 0231, 7600 #### [facility] [address], [address] [place] [address] Plant Maintenance Technician: Jose Juan Arriola MD Globulin (S) [Mass/Vol] 2.5 g/dL Normal 1.9-3.7 [facility] Comment on above: Performed By: #### 1 0231, 7600 #### [facility] [place] [address] Plant Maintenance Technician: Jose Juan Arriola MD Glucose [Mass/Vol] 93 mg/dL Normal 65-99 [facility] Comment on above: Result Comment: Fasting reference interval Performed By: #### 1 0231, 7600 #### [facility] [address], [address] [place] [address] Plant Maintenance Technician: Jose Juan Arriola MD Potassium [Moles/Vol] 4.7 mmol/L Normal 3.5-5.[address] [facility] [address] [facility] Comment on above: Performed By: #### 1 0231, 7600 #### [facility] [place] [address] Plant Maintenance Technician: Jose Juan Arriola MD Protein [Mass/Vol] 6.6 g/dL Normal 6.1-8.1 [facility] Comment on above: Performed By: #### 1 0231, 7600 #### [facility] [place] [address] Plant Maintenance Technician: Jose Juan Arriola MD Sodium [Moles/Vol] 142 mmol/L Normal 135-146 [facility] Comment on above: Performed By: #### 1 0231, 7600 #### [facility] [place] [address] Plant Maintenance Technician: Jose Juan Arriola MD Urea nitrogen [Mass/Vol] 31 mg/dL High 7-25 [facility] Comment on above: Performed By: #### 1 0231, 7600 #### [facility] [address], [address] [place] [address] Plant Maintenance Technician: Jose Juan Arriola MD Urea nitrogen/Creatinine [Mass ratio] 14 mg/mg Normal 6-22 [facility] Comment on above: Performed By: #### 1 0231, 7600 #### [facility] [address], [address] [place] [address] Plant Maintenance Technician: Jose Juan Arriola MD LIPID PANEL, [facility] Cholesterol [Mass/Vol] 101 mg/dL Normal <200 [facility] Comment on above: Order Comment: FASTI NG:YES FASTING: YES Performed By: #### 1 0231, 7600 #### [facility] [address], [address] [place] [address] Plant Maintenance Technician: Jose Juan Arriola MD Cholesterol in HDL [Mass/Vol] 40 mg/dL Normal > OR = 40 [facility] Comment on above: Order Comment: FASTI NG:YES FASTING: YES Performed By: #### 1 0231, 7600 #### [facility] [place] [address] Plant Maintenance Technician: Jose Juan Arriola MD Cholesterol in LDL [...] LDL-C. Phillip FITZGERALD et al. MERYL. 2013;310(19): 7867-3733 (http://education.[employer].SMX/faq/MGX176) Performed By: #### 1 0231, 7600 #### [facility] [place] [address], [address] [place] [address] Plant Maintenance Technician: Jose Juan Arriola MD Cholesterol.total/Chol esterol in HDL [Mass ratio] 2.5 {ratio} Normal <5.0 [facility] Comment on above: Order Comment: FASTI NG:YES FASTING: YES Performed By: #### 1 0231, 7600 #### [facility] [address], [address] [place] [address] Plant Maintenance Technician: Jose Juan Arriola MD NON HDL CHOLESTEROL 61 mg/dL (calc) Normal <130 [facility] Comment on above: Order Comment: FASTI NG:YES FASTING: YES Result Comment: For patients with diabetes plus 1 major ASCVD risk factor, treating to a non-HDL-C goal of <100 mg/dL (LDL-C of <70 mg/dL) is considered a therapeutic option. Performed By: #### 1 0231, 7600 #### [facility] [address], [address] [place] [address] Plant Maintenance Technician: Jose Juan Arriola MD Triglyceride [Mass/Vol] 127 mg/dL Normal <150 [facility] Comment on above: Order Comment: FASTI NG:YES FASTING: YES Performed By: #### 1 0231, 7600 #### [facility] [place] [address] Plant Maintenance Technician: Jose Juan Arriola MD Tobacco Screening.on 021 Fall risk assessment a) No falls within the last year [facility] 250 DO Work Phone: Tobacco use status [facility] b) No -[facility] 250 DO Work Phone: B TYPE NATRIURETIC PEPTIDE ( BNP)on 11-03-2020 B TYPE NATRIURETIC PEPTIDE (BNP) Normal [facility] Comment on above: Result Comment: FROZ EN EDTA PLASMA IS REQUIRED TEST NOT PERFORMED No suitable specimen received. Please review the test requirements at [email or web address] Performed By: #### 9 05, 18619, 38884, 6399, 718, 899, 622, 86263, 51131 #### [facility] of [place] [address] Plant Maintenance Technician: Jose Juan Arriola MD CBC (INCLUDES DIFF/PLT)on Basophils (Bld) [#/Vol] 0.071 10*3/uL Normal 0-200 [facility] Comment on above: Performed By: #### 9 05, 59518, 23490, 6399, 718, 899, 622, 52641, 51091 #### [facility] of [place] [address] Plant Maintenance Technician: Jose Juan Arriola MD Basophils/100 WBC (Bld) 1.0 % Normal [facility] Comment on above: Performed By: #### 9 05, 74338, 52022, 6399, 718, 899, 622, 60560, 82629 #### [facility] [place] [address] Plant Maintenance Technician: Jose Juan Arriola MD Eosinophils (Bld) [#/Vol] 0.099 10*3/uL Normal 15-500 [facility] Comment on above: Performed By: #### 9 05, 18931, 69615, 6399, 718, 899, 622, 42623, 14476 #### [facility] of [place] [address] Plant Maintenance Technician: Jose Juan Arriola MD Eosinophils/100 WBC (Bld) 1.4 % Normal [facility] Comment on above: Performed By: #### 9 05, 57713, 40445, 6399, 718, 899, 622, 27317, 69681 #### [facility] of [place] [address] Plant Maintenance Technician: Jose Juan Arriola MD Erythrocyte distribution width (RBC) [Ratio] 14.4 % Normal 11.0-15.0 [facility] Comment on above: Performed By: #### 9 05, 39557, 67791, 6399, 718, 899, 622, 79719, 16336 #### [facility] of [place] [address] Plant Maintenance Technician: Jose Juan Arriola MD Hematocrit (Bld) [Volume fraction] 42.7 % Normal 38.5-50.0 [facility] Comment on above: Performed By: #### 9 05, 52060, 76466, 6399, 718, 899, 622, 64163, 23165 #### [facility] of [place] [address] Plant Maintenance Technician: Jose Juan Arriola MD Hemoglobin (Bld) [Mass/Vol] 13.7 g/dL Normal 13.2-17.1 [facility] Comment on above: Performed By: #### 9 05, 99488, 74445, 6399, 718, 899, 622, 32604, 15851 #### [facility] of [place] [address] Plant Maintenance Technician: Jose Juan Arriola MD Lymphocytes (Bld) [#/Vol] 1.512 10*3/uL Normal 850-3900 [facility] Comment on above: Performed By: #### 9 05, 09906, 97645, 6399, 718, 899, 622, 95903, 77776 #### [facility] of [place] [address] Plant Maintenance Technician: Jose Juan Arriola MD Lymphocytes/100 WBC (Bld) 21.3 % Normal [facility] Comment on above: Performed By: #### 9 05, 91877, 80407, 6399, 718, 899, 622, 94991, 83337 #### [facility] of [place] [address] Plant Maintenance Technician: Jose Juan Arriola MD MCH (RBC) [Entitic mass] 28.5 pg Normal 27.0-33.0 [facility] Comment on above: Performed By: #### 9 05, 65225, 16351, 6399, 718, 899, 622, 58893, 29088 #### [facility] of [address] [place] [address] Plant Maintenance Technician: Jose Juan Arriola MD MCHC (RBC) [Mass/Vol] 32.1 g/dL Normal 32.0-36.[address] [facility] Comment on above: Performed By: #### 9 05, 85698, 96109, 6399, 718, 899, 622, 58024, 81441 #### [facility] of [place] [address] Plant Maintenance Technician: Jose Juan Arriola MD MCV (RBC) [Entitic vol] 89.0 fL Normal 80.0-100.0 [facility] Comment on above: Performed By: #### 9 05, 54550, 85492, 6399, 718, 899, 622, 10479, 56289 #### [facility] of [place] [address] Plant Maintenance Technician: Jose Juan Arriola MD Monocytes (Bld) [#/Vol] 0.738 10*3/uL Normal 200-950 [facility] Comment on above: Performed By: #### 9 05, 61618, 36510, 6399, 718, 899, 622, 78259, 33830 #### [facility] of [place] [address] Plant Maintenance Technician: Jose Juan Arriola MD Monocytes/100 WBC (Bld) 10.4 % Normal [facility] Comment on above: Performed By: #### 9 05, 57919, 20699, 6399, 718, 899, 622, 65437, 54244 #### [facility] of [place] [address] Plant Maintenance Technician: Jose Juan Arriola MD Neutrophils (Bld) [#/Vol] 4.679 10*3/uL Normal 0215-2439 [facility] Comment on above: Performed By: #### 9 05, 15639, 38615, 6399, 718, 899, 622, 95067, 12696 #### [facility] of [place] [address] Plant Maintenance Technician: Jose Juan Arriola MD Neutrophils/100 WBC (Bld) 65.9 % Normal [facility] Comment on above: Performed By: #### 9 05, 67683, 62726, 6399, 718, 899, 622, 21704, 88536 #### [facility] of [place] [address] Plant Maintenance Technician: Jose Juan Arriola MD Platelet mean volume (Bld) [Entitic vol] 11.4 fL Normal 7.5-12.5 [facility] Comment on above: Performed By: #### 9 05, 61063, 10363, 6399, 718, 899, 622, 07365, 47964 #### [facility] of [place] [address] Plant Maintenance Technician: Jose Juan Arriola MD Platelets (Bld) [#/Vol] 229 10*3/uL Normal 140-400 [facility] Comment on above: Performed By: #### 9 05, 82907, 18634, 6399, 718, 899, 622, 50068, 57939 #### [facility] of [place] [address] Plant Maintenance Technician: Jose Juan Arriola MD RBC (Bld) [#/Vol] 4.80 10*6/uL Normal 4.20-5.80 [facility] Comment on above: Performed By: #### 9 05, 04427, 68049, 6399, 718, 899, 622, 06293, 31134 #### [facility] of [place] [address] Plant Maintenance Technician: Jose Juan Arriola MD WBC (Bld) [#/Vol] 7.1 10*3/uL Normal 3.8-10.8 [facility] Comment on above: Performed By: #### 9 05, 71570, 99490, 6399, 718, 899, 622, 95111, 41991 #### [facility] of [place] [address] Plant Maintenance Technician: Jose Juan Arriola MD [facility] METABOLIC [facility] 11-03-2020 Albumin [Mass/Vol] 4.1 g/dL Normal 3.6-5.1 [facility] Comment on above: Performed By: #### 9 05, 68617, 55812, 6399, 718, 899, 622, 98916, 02699 #### [facility] of [place] [address] Plant Maintenance Technician: Jose Juan Arriola MD Albumin/Globulin [Mass ratio] 1.7 {ratio} Normal 1.0-2.5 [facility] Comment on above: Performed By: #### 9 05, 63899, 79516, 6399, 718, 899, 622, 18750, 90119 #### [facility] of [place] [address] Plant Maintenance Technician: Jose Juan Arriola MD ALP [Catalytic activity/Vol] 62 U/L Normal 35-144 [facility] Comment on above: Performed By: #### 9 05, 48231, 49741, 6399, 718, 899, 622, 77565, 49224 #### [facility] of [place] [address] Plant Maintenance Technician: Jose Juan Arriola MD ALT [Catalytic activity/Vol] 9 U/L Normal 9-46 [facility] Comment on above: Performed By: #### 9 05, 71422, 38908, 6399, 718, 899, 622, 35767, 06443 #### [facility] of [place] [address] Plant Maintenance Technician: Jose Juan Arriola MD AST [Catalytic activity/Vol] 13 U/L Normal 10-35 [facility] Comment on above: Performed By: #### 9 05, 85352, 40327, 6399, 718, 899, 622, 93062, 71548 #### [facility] of [place] [address] Plant Maintenance Technician: Jose Juan Arriola MD Bilirubin [Mass/Vol] 0.7 mg/dL Normal 0.2-1.2 [facility] Comment on above: Performed By: #### 9 05, 37274, 86662, 6399, 718, 899, 622, 12742, 91899 #### [facility] [address], [address] [place] [address] Plant Maintenance Technician: Jose Juan Arriola MD Calcium [Mass/Vol] 9.5 mg/dL Normal 8.6-10.3 [facility] Comment on above: Performed By: #### 9 05, 94367, 88662, 6399, 718, 899, 622, 38194, 60988 #### [facility] [place] [address] Plant Maintenance Technician: Jose Juan Arriola MD Chloride [Moles/Vol] 109 mmol/L Normal 98-110 [facility] Comment on above: Performed By: #### 9 05, 89610, 83001, 6399, 718, 899, 622, 87555, 63451 #### [facility] [address], [address] [place] [address] Plant Maintenance Technician: Jose Juan Arriola MD CO2 [Moles/Vol] 25 mmol/L Normal 20-32 [facility] Comment on above: Performed By: #### 9 05, 70258, 41318, 6399, 718, 899, 622, 68903, 59575 #### [facility] [place] [address] Plant Maintenance Technician: Jose Juan Arriola MD Creatinine [Mass/Vol] 1.99 mg/dL High 0.70-1.[address] [facility] Comment on above: Result Comment: For patients >49 years of age, the reference limit for Creatinine is approximately 13% higher for people identified as -Argent[place]. Performed By: #### 9 05, 62713, 73409, 6399, 718, 899, 622, 42535, 34342 #### [facility] [place] [address] Plant Maintenance Technician: Jose Juan Arriola MD eGFR NON-AFR. BHUTANESE 30 mL/min/1.73m2 Low > OR = 60 [facility] Comment on above: Performed By: #### 9 05, 38240, 71113, 6399, 718, 899, 622, 38865, 89955 #### [facility] [place] [address] Plant Maintenance Technician: Jose Juan Arriola MD GFR/1.73 sq M.predicted among blacks MDRD (S/P/Bld) [Vol rate/Area] 34 mL/min/{1.73_m2} Low > OR = 60 [facility] Comment on above: Performed By: #### 9 05, 93119, 16229, 6399, 718, 899, 622, 06999, 92827 #### [facility] [place] [address] Plant Maintenance Technician: Jose Juan Arriola MD Globulin (S) [Mass/Vol] 2.4 g/dL Normal 1.9-3.7 [facility] Comment on above: Performed By: #### 9 05, 19941, 32423, 6399, 718, 899, 622, 60712, 29972 #### [facility] [place] [address] Plant Maintenance Technician: Jose Juan Arriola MD Glucose [Mass/Vol] 144 mg/dL High 65-99 [facility] Comment on above: Result Comment: Fasting reference interval For someone without known diabetes, a glucose value >125 mg/dL indicates that they may have diabetes and this should be confirmed with a follow-up test. Performed By: #### 9 05, 52818, 17122, 6399, 718, 899, 622, 49985, 79629 #### [facility] [place] [address] Plant Maintenance Technician: Jose Juan Arriola MD Potassium [Moles/Vol] 4.9 mmol/L Normal 3.5-5.[address] [facility] [address] [facility] Comment on above: Performed By: #### 9 05, 09655, 19918, 6399, 718, 899, 622, 81328, 89016 #### [facility] of [place] [address] Plant Maintenance Technician: Jose Juan Arriola MD Protein [Mass/Vol] 6.5 g/dL Normal 6.1-8.1 [facility] Comment on above: Performed By: #### 9 05, 55902, 69850, 6399, 718, 899, 622, 45674, 75999 #### [facility] of [place] [address] Plant Maintenance Technician: Jose Juan Arriloa MD Sodium [Moles/Vol] 141 mmol/L Normal 135-146 [facility] Comment on above: Performed By: #### 9 05, 37433, 60264, 6399, 718, 899, 622, 00639, 52545 #### [facility] of [place] [address] Plant Maintenance Technician: Jose Juan Arriola MD Urea nitrogen [Mass/Vol] 31 mg/dL High 7-25 [facility] Comment on above: Performed By: #### 9 05, 74374, 83860, 6399, 718, 899, 622, 97881, 79866 #### [facility] of [place] [address] Plant Maintenance Technician: Jose Juan Arriola MD Urea nitrogen/Creatinine [Mass ratio] 16 mg/mg Normal 6-22 [facility] Comment on above: Performed By: #### 9 05, 81362, 04848, 6399, 718, 899, 622, 84666, 86843 #### [facility] of [place] [address] Plant Maintenance Technician: Jose Juan Arriola MD MAGNESIUMon 11-03-2020 Magnesium [Mass/Vol] 2.1 mg/dL Normal 1.5-2.5 [facility] Comment on above: Performed By: #### 9 05, 95899, 91202, 6399, 718, 899, 622, 42756, 65296 #### [facility] of [place] [address] Plant Maintenance Technician: Jose Juan Arriola MD PHOSPHATE ( PHOSPHORUS)on 11-03-2020 Phosphate [Mass/Vol] 2.9 mg/dL Normal 2.1-4.3 [facility] Comment on above: Performed By: #### 9 05, 26595, 30850, 6399, 718, 899, 622, 58391, 00059 #### [facility] [place] [address] Plant Maintenance Technician: Jose Juan Arriola MD PTH, INTACT WITHOUT [...] Normal High Performed By: #### 9 05, 89435, 22313, 6399, 718, 899, 622, 58689, 54757 #### [facility] [place] [address] Plant Maintenance Technician: Jose Juan Arriola MD TSHon 11-03-2020 TSH Qn 2.08 m[IU]/L Normal 0.40-4.50 [facility] Comment on above: Performed By: #### 9 05, 59362, 57071, 6399, 718, 899, 622, 55972, 80113 #### [facility] [place] [address] Plant Maintenance Technician: Jose Juan Arriola MD URIC ACIDon 11-03-2020 Urate [Mass/Vol] 8.5 mg/dL High 4.0-8.0 [facility] Comment on above: Result Comment: Ther apeutic target for gout patients: <6.0 mg/dL Performed By: #### 9 05, 14065, 61718, 6399, 718, 899, 622, 92801, 35239 #### [facility] [address], [address] [place] [address] Plant Maintenance Technician: Jose Juan Arriola MD VITAMIN D,25-OH,TOTAL,IAon 0 [...] D, (D2,D3), LC/MS/MS is recommended: order code 39874 (patients >2yrs). See Note 1 Note 1 For additional information, please refer to http://education.JRapid/faq/MZN615 (This link is being provided for informational/ educational purposes only.) Performed By: #### 1 0231, 7600 #### [facility] [address], [address] [place] [address] Plant Maintenance Technician: Jose Juan Arriola MD [facility] CARDIAC STRESS/REST INJE CTIONon 08-07-2019 [facility] CARDIAC STRESS/REST INJECTION Patient Name: RIO JACOME STUDY: MYOCARDIAL PERFUSION STRESS TEST WITH LEXISCAN Performing facility: [facility], [address] [place] [address], [address], [place] [address] [facility] Provider: Melanie Langston MD, FACC PCP: Dr. Alden Morin Supervising provider: Edwige Jacobsen MD, FACC INDICATION: Arteriosclerotic cardiovascular disease Pre-operative risk assessment for Gallbladder scheduled at [facility] on TBA. HISTORY: Gender: M; Age: 83 y/o ; Height: 175.26 cm; Weight: 74.2877639 kg. High Cholesterol; CAD; HTN; ICD V. Tach., ICD Denies smoking. COMPARISON: Previous nuclear testing completed at [facility]. ACCESSION NUMBER(S): [id number]; [id number]; [id number] ORDERING CLINICIAN: RENETTA LANGSTON TECHNIQUE: ONE DAY [...] changes. Electronically signed by: EDWIGE JACOBSEN MD [facility] Reminderson 03-14-2019 Reminders - From: Qing Villegas MA To: EU - Clinical; Sent: 03/04/2019 11:29:06 EDT Show up: 03/14/2019 11:29:00 EDT Subject: Ambulatory Reminder Due Date/Time: 03/18/2019 11:29:00 EDT Reminder/Recall FISH/Cytology done 03/04/19 Negative. Normal [facility] Vital Signs Date Time Vital Sign Value Performing Clinician Facility 11-05-2023 08:57-0400 Body height 180.3 cm Renetta Langston MD Work Phone: [facility] 11-05-2023 08:57-0400 Body mass index (BMI) [Ratio] 21.9 kg/m2 Renetta Langston MD Work Phone: [facility] 11-05-2023 08:57-0400 Body weight 71.22 kg Renetta Langston MD Work Phone: [facility] 11-05-2023 08:57-0400 Diastolic blood pressure 90 mm[Hg] Renetta Langston MD Work Phone: [facility] 11-05-2023 08:57-0400 Heart rate 82 /min Renetta Langston MD Work Phone: [facility] 11-05-2023 08:57-0400 Systolic blood pressure 130 mm[Hg] Renetta Langston MD Work Phone: [facility] 08-06-2023 10:10-0400 Body height 177.8 cm Phil Morin DO Work Phone: [facility] 08-06-2023 10:10-0400 Body mass index (BMI) [Ratio] 23.69 kg/m2 Phil Ronnelldestinyng DO Work Phone: [facility] 08-06-2023 10:10-0400 Body temperature 97.81 [degF] Phil Myersng DO Work Phone: [facility] 08-06-2023 10:10-0400 Body weight 74.89 kg Phil Morin DO Work Phone: [facility] 08-06-2023 10:10-0400 Diastolic blood pressure 60 mm[Hg] Phil Furlong DO Work Phone: [facility] [employer] 08-06-2023 10:10-0400 Heart rate 93 /min Phil Furlong DO Work Phone: [facility] 08-06-2023 10:10-0400 Respiratory rate 18 /min Phil Furlong DO Work Phone: [facility] 08-06-2023 10:10-0400 SaO2% (BldA) [Mass fraction] 97 % Phil Furlong DO Work Phone: [facility] [employer] 08-06-2023 10:10-0400 Systolic blood pressure 106 mm[Hg] Phil Furlong DO Work Phone: [facility] 05-29-2023 16:13-0500 Body height 177.8 cm Phil Furlong DO Work Phone: [facility] 05-29-2023 16:13-0500 Body mass index (BMI) [Ratio] 24.12 kg/m2 Phil Furlong DO Work Phone: [facility] [employer] 05-29-2023 16:13-0500 Body temperature 97.81 [degF] Phil Furlong DO Work Phone: [facility] [employer] 05-29-2023 16:13-0500 Body weight 76.25 kg Phil Furlong DO Work Phone: [facility] 05-29-2023 16:13-0500 Diastolic blood pressure 68 mm[Hg] Phil Furlong DO Work Phone: [facility] [employer] 05-29-2023 16:13-0500 Heart rate 104 /min Phil Furlong DO Work Phone: [facility] [facility] 05-29-2023 16:13-0500 SaO2% (BldA) [Mass fraction] 99 % Pihl Furlong DO Work Phone: [facility] 05-29-2023 16:13-0500 Systolic blood pressure 128 mm[Hg] Pihl Furlong DO Work Phone: [facility] 01-12-2023 14:17-0400 Body height 175.26 cm Phil G Furlong Work Phone: [facility] DO Work Phone: 01-12-2023 14:17-0400 Body mass index (BMI) [Ratio] 23.78 kg/m2 Phil G Furlong Work Phone: [facility] 250 DO Work Phone: 01-12-2023 14:17-0400 Body surface area Derived from formula 1.88 m2 Phil G Furlong Work Phone: [facility] 250 DO Work Phone: 01-12-2023 14:17-0400 Body weight 73.03 kg Phil G Furlong Work Phone: [facility] 250 DO Work Phone: 01-12-2023 14:17-0400 Diastolic blood pressure 78 mm[Hg] Phil G Furlong Work Phone: [facility] 250 DO Work Phone: 01-12-2023 14:17-0400 Heart rate 72 /min Phil G Furlong Work Phone: [facility] 250 DO Work Phone: 01-12-2023 14:17-0400 Systolic blood pressure 122 mm[Hg] Phil G Furlong Work Phone: [facility] 250 DO Work Phone: 07-14-2022 15:41-0500 Body height 175.26 cm Phil G Furlong Work Phone: [facility] 250 DO Work Phone: 07-14-2022 15:41-0500 Body mass index (BMI) [Ratio] 23.92 kg/m2 Phil Reynagalong Work Phone: [facility] 250 DO Work Phone: 07-14-2022 15:41-0500 Body surface area Derived from formula 1.89 m2 Phil Reynagalong Work Phone: [facility] 250 DO Work Phone: 07-14-2022 15:41-0500 Body weight 73.48 kg Phil Reynagalong Work Phone: [facility] [employer] 250 DO Work Phone: 07-14-2022 15:41-0500 Diastolic blood pressure 80 mm[Hg] Phil Reynagalong Work Phone: [facility] 250 DO Work Phone: 07-14-2022 15:41-0500 Heart rate 80 /min Phil Reynagalong Work Phone: [facility] [employer] 250 DO Work Phone: 07-14-2022 15:41-0500 Systolic blood pressure 130 mm[Hg] Phil Reynagalong Work Phone: [facility] [employer] 250 DO Work Phone: 06-15-2022 12:40-0500 Diastolic blood pressure 78 mm[Hg] Florentino Hernadez Dept. of Dermatology 06-15-2022 12:40-0500 Systolic blood pressure 167 mm[Hg] Florentino Hernadez Dept[facility] D[facility]at[facility] 06-06-2022 08:07-0500 Diastolic blood pressure 85 mm[Hg] Florentino Hernadez Dept[facility]at[facility] 06-06-2022 08:07-0500 Systolic blood pressure 150 mm[Hg] Florentino Hernadez Dept[facility]atology 04-03-2022 14:27-0500 Body height 175.26 cm Phil G Furlong Work Phone: [facility] [place] Work Phone: 04-03-2022 14:27-0500 Body mass index (BMI) [Ratio] 23.92 kg/m2 Phil G Furlong Work Phone: [facility] [place] Work Phone: 04-03-2022 14:27-0500 Body surface area Derived from formula 1.89 m2 Phil G Furlong Work Phone: [facility]Cmgvil[facility]up[facility]Br [place] Work Phone: 04-03-2022 14:27-0500 Body weight 73.48 kg Philgirish Reynagalong Work Phone: [facility]-Bxdpvnjwbjrkig-Gk [place] Work Phone: 03-23-2022 09:29-0400 Diastolic blood pressure 89 mm[Hg] Karlie Craig Dept. of Dermatology 03-23-2022 09:29-0400 Systolic blood pressure 160 mm[Hg] Karlie Craig Dept[facility] D[facility]atology 03-23-2022 08:29-0400 Diastolic blood pressure 89 mm[Hg] Florentino Hernadez Dept[facility] of Dermatology 03-23-2022 08:29-0400 Systolic blood pressure 160 mm[Hg] Florentino Hernadez Dept[facility] Dermatology 12-13-2021 08:48-0400 Body height 175.26 cm [facility]along [facility] Work Phone: 12-13-2021 08:48-0400 Body mass index (BMI) [Ratio] 23.63 kg/m2 Phil G Furlong Work Phone: [facility] [employer] 250 DO Work Phone: 12-13-2021 08:48-0400 Body surface area Derived from formula 1.88 m2 Phil G Furlong Work Phone: [facility] [employer] 250 DO Work Phone: 12-13-2021 08:48-0400 Body weight 72.58 kg Phil G Furlong Work Phone: [facility] [employer] 250 DO Work Phone: 12-13-2021 08:48-0400 Diastolic blood pressure 80 mm[Hg] Phil G Furlong Work Phone: [facility] 250 DO Work Phone: 12-13-2021 08:48-0400 Heart rate 80 /min Phil G Furlong Work Phone: [facility] 250 DO Work Phone: 12-13-2021 08:48-0400 Systolic blood pressure 128 mm[Hg] Phil G Furlong Work Phone: [facility] 250 DO Work Phone: 05-02-2021 08:27-0500 Body height 175.26 cm Phil G Furlong Work Phone: [facility] 250 DO Work Phone: 05-02-2021 08:27-0500 Body mass index (BMI) [Ratio] 24.37 kg/m2 Phil G Furlong Work Phone: [facility] 250 DO Work Phone: 05-02-2021 08:27-0500 Body surface area Derived from formula 1.9 m2 Phil Reynagalong Work Phone: [facility] 250 DO Work Phone: 05-02-2021 08:27-0500 Body weight 74.84 kg Phil Reynagalong Work Phone: [facility] 250 DO Work Phone: 05-02-2021 08:27-0500 Diastolic blood pressure 76 mm[Hg] Phil Reynagalong Work Phone: [facility] DO Work Phone: 05-02-2021 08:27-0500 Heart rate 81 /min Phil Reynagalong Work Phone: [facility] 250 DO Work Phone: 05-02-2021 08:27-0500 Systolic blood pressure 137 mm[Hg] Phil Reynagalong Work Phone: [facility] [employer] 250 DO Work Phone: 1934 23:00-0500 >na< Karlie Craig Dept. of Dermato logy Encounters Encounter Date Encounter Type Care Provider Facility Start: 12-27-2023 End: 12-27-2023 Patient encounter procedure DO Phil Furlong Work Phone: [facility] Start: 12-27-2023 End: 12-27-2023 ambulatory DO Phil Furlong Work Phone: [facility] Work Phone: Start: 11-05-2023 End: 11-05-2023 Office outpatient visit 25 minutes Renetta Langston MD Work Phone: [facility] Comment on above: Arteriosclerotic car diovascular disease (ASCVD) (Primary Dx); Essential hypertension; Mixed hyperlipidemia; Ventricular tachycardia (Multi); ICD (implantable cardioverter-defibrillator) in place; Dilated cardiomyopathy (Multi); Ischemic cardiomyopathy Start: 11-05-2023 End: 11-05-2023 ambulatory [facility] Start: 09-27-2023 End: 09-27-2023 Patient encounter procedure DO Phil Morin Work Phone: [facility] Start: 09-27-2023 End: 09-27-2023 ambulatory DO Phil Morin Work Phone: [facility] Work Phone: Start: 08-23-2023 Orders Only Phil pool DO Work Phone: [facility] Start: 08-09-2023 Orders Only Phil pool DO Work Phone: [facility] Comment on above: Type 2 diabetes gamaliel itus without complication, without long- term current use of insulin ([facility]) (Primary Dx); Hypertensive 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 ([facility]-HCC) Start: 08-06-2023 End: 08-07-2023 ambulatory [facility] Start: 08-06-2023 End: 08-06-2023 ambulatory [facility] Start: 08-06-2023 End: 08-06-2023 Office outpatient visit 25 minutes Phil Morin DO Work Phone: [facility] Comment on above: Hypertensive heart a nd renal disease with (congestive) heart failure ([facility]-HCC) (Primary Dx); Hyperlipidemia, unspecified hyperlipidemia type; Stage 4 chronic kidney disease (CMS-HCC); Type 2 diabetes mellitus without complication, without long-term current use of insulin (CMS-HCC); Hyperparathyroidism (CMS-HCC); Malignant melanoma of scalp or neck ([facility]-HCC); Longstanding persistent atrial fibrillation (CMS-HCC); Paroxysmal atrial fibrillation ([facility]-HCC); Microalbuminuric diabetic nephropathy ([facility]) Start: 07-18-2023 Orders Only Phil Myers ng DO [facility] Phone[facility] Comment on above: Longstanding persist ent atrial fibrillation ([facility]-HCC) (Primary Dx) Start: 06-28-2023 End: 06-28-2023 Patient encounter procedure DO Phil Furlong Work Phone: [facility] Start: 06-28-2023 End: 06-28-2023 ambulatory DO Phil Furlong Work Phone: [facility] Work Phone: Start: 05-29-2023 End: 05-29-2023 ambulatory PHILGIRISH MYERSNG [facility] Start: 05-29-2023 End: 05-29-2023 Office outpatient visit 25 minutes Philgirish Reynagalong DO Work Phone: [facility] Comment on above: Paroxysmal atrial fi brillation ([facility]) (Primary Dx); Hypertensive 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 ([facility]); Essential hypertension; Hypothyroidism, unspecified type; Type 2 diabetes mellitus without complication, without long-term current use of insulin ([facility]); Arteriosclerotic vascular disease Start: 03-20-2023 End: 03-20-2023 Patient encounter procedure DO Phil Furlong Work Phone: [facility] Start: 03-20-2023 End: 03-20-2023 ambulatory DO Phil Furlong Work Phone: [facility] Work Phone: Start: 01-12-2023 Office outpatient vi sit 25 minutes Phil Martínez Furlong Work Phone: [facility] 250 DO Work Phone: Start: 01-12-2023 Patient encounter procedure De nnponce Reynagalong Work Phone: [facility] DO Work Phone: Start: 01-12-[address] Renetta Langston II Facility: Start: 12-04-[address] Phil Morin Facility:90 Start: 10-17-2022 End: 10-18-[address] JARON DAVALOS Facility:H1 Start: 09-15-2022 End: 09-16-[address] JARON DAVALOS Facility:H1 Start: 08-28-[address] Phil Morin Facility:90 Start: 08-28-2022 End: 08-28-2022 ambulatory DO Phil Morin Work Phone: [facility] Work Phone: Start: 08-28-2022 End: 08-28-2022 Patient encounter procedure DO Phil Morin Work Phone: [facility] Start: 08-15-2022 End: 08-16-[address] JARON DAVALOS Facility:H1 Start: 07-18-2022 End: 07-19-[address] JARON DAVALOS Facility:H1 Start: 07-14-2022 Office outpatient vi sit 25 minutes Phil Morin Work Phone: [facility] 250 DO Work Phone: Start: 07-14-[address] Phil Morin Facility: Start: 07-04-2022 End: 07-05-[address] JARNO DAVALOS Facility:H1 Start: 07-03-2022 Karlie Craig Dept[facility] of D ermatology Start: 06-16-2022 Gadiel Estevez Dept. of Dermatology Start: 06-16-2022 Telephone encounter Phil duron Work Phone: [facility] 250 DO Work Phone: Start: 06-15-2022 Florentino Hernadez Dept. of Dermatology Start: 06-15-[address] Phil Morin Facility:[id number] Start: 06-15-[address] Phil Morin Facility:[id number] Start: 06-09-2022 Rx Renewal Phil Myers ng Work Phone: [facility] 250 DO Work Phone: Start: 06-07-2022 End: 06-08-[address] PHIL MORIN Facility:H1 Start: 06-07-2022 Florentino Hernadez Dept. of Dermatology Start: 06-06-2022 ambulatory Florentino Hernadez Facility: [id number] Start: 06-06-2022 ambulatory Florentino Hernadez Facility: 9522 Start: 05-17-[address] Phil Morin Facility:[id number] Start: 05-17-2022 End: 05-17-2022 ambulatory DO Philgirish Myersng Work Phone: [facility] Work Phone: Start: 05-17-2022 End: 05-17-2022 Patient encounter procedure DO Phil Myersng Work Phone: [facility] Start: 05-08-2022 End: 05-09-[address] PHIL MORIN Facility:H1 Start: 05-01-2022 Rx Renewal [facility] Myers ng [facility] Work Phone: Start: 04-07-2022 End: 04-08-[address] PHIL MORIN Facility:H1 Start: 04-04-2022 Karlie Craig Dept. of D ermatology Start: 04-03-2022 Office outpatient ne w 45 minutes Phil Morin Work Phone: [facility] [place] Work Phone: Start: 04-03-2022 Patient encounter procedure De mindi Martínez Reynagadestinyyrn Work Phone: [facility] [place] Work Phone: Start: 04-03-[address] Ketan Iyer Facility:[id number] Start: 03-23-2022 Florentino Hernadez Dept. of Dermatology Start: 03-23-2022 ambulatory Florentino Hernadez Facility: 9313 Start: 03-23-2022 ambulatory Florentino Hernadez Facility: 9522 Start: 03-06-2022 End: 03-07-[address] PHIL MORIN Facility:H1 Start: 02-28-2022 Karlie Craig Dept. of D ermatology Start: 02-16-2022 ambulatory Florentino Hernadez Facility: 9319 Start: 02-15-[address] Phil reddy Ronnelllong Facility:[id number] Start: 02-15-2022 End: 02-15-2022 ambulatory DO Phil Morin Work Phone: [facility] Work Phone: Start: 02-15-2022 End: 02-15-2022 Patient encounter procedure DO Phil Morin Work Phone: [facility] Start: 02-03-2022 End: 02-04-[address] PHIL MORIN Facility:H1 Start: 01-02-2022 End: 01-03-[address] PHIL MORIN Facility:H1 Start: 12-13-2021 Office outpatient vi sit 25 minutes Phil Morin Work Phone: [facility] 250 DO Work Phone: Start: 12-02-2021 End: 12-16-[address] PHIL MORIN Facility:H1 Start: 11-18-2021 End: 11-19-[address] PHIL MORIN Facility: Start: 05-02-2021 Office outpatient vi sit 25 minutes Phil Soliz Ronnelldestinyyrn Work Phone: [facility] 250 DO Work Phone: Procedures Date Procedure Procedure Detail Performing Clinician Start: 08-06-2023 Adult depression scr eening assessment Phil Morin DO Work Phone: Start: 05-29-2023 Adult depression scr eening assessment Phil Morin DO Work Phone: Start: 06-15-2022 Excision malignant l esion s/n/h/f/g 2.1-3.0 cm Florentino Hernadez Start: 06-06-2022 Excision malignant: Scalp/Neck/Hands/Feet/Genit adam - 4.0cm [id number] Florentino Hernadez Start: 06-06-2022 Excision malignant: Scalp/Neck/Hands/Feet/Genit adam - 4.0cm [id number] Florentino Hernadez Start: 03-23-2022 End: 03-23-2022 Exc [...] Td Vaccines (2 - Td or Tdap) [facility] Start: 08-11-2027 DTaP/Tdap/Td Vaccines (2 - Td or Tdap) DTaP/Tdap/Td Vaccines (2 - Td or Tdap) [facility] Start: 08-05-2024 Administration of varicella zoster vaccine Zoster (Shingles) Vaccine (1 of 2) [facility] Comment on above: Postponed from 09/25/2015 (Patient Refus ed) Start: 08-05-2024 Adult BMI Screening Adult BMI Screening [facility] Start: 08-05-2024 Depression Screening Depression Screening [facility] Start: 08-05-2024 Tobacco Screening Tobacco Screening [facility] Start: 08-04-2024 End: 08-04-2024 Patient encounter procedure 08/04/2024 9:30 AM EDT Office Visit [facility] [address] [facility] [address] [place] [id number] Roslyn Mckenzie MD [address] [facility] [place] [address] [facility] Start: 05-29-2024 Adult BMI Screening Adult BMI Screening [facility] Start: 05-29-2024 Depression Screening Depression Screening [facility] Start: 05-29-2024 Fall Risk Screening Fall Risk Screening [facility] Start: 05-29-2024 Tobacco Screening Tobacco Screening [facility] Start: 02-06-2024 End: 02-06-2024 Patient encounter procedure 02/06/2024 9:00 AM EDT [facility] [address] [place] [address] Phil Morin, DO [address], [facility] [place] [address] [facility] - [facility] Start: 01-20-2024 Influenza vaccination Influenza Vaccine [facility] Start: 10-16-2023 FUV, Provider: Renetta Langston, Status: Pen, Time: 9:00 AM FUV, Provider: Renetta Langston, Status: Pen, Time: 9:00 AM [facility] 250 DO Work Phone: Start: 08-06-2023 End: 08-06-2023 Patient encounter procedure 08/06/2023 10:10 AM EDT Office Visit [facility] - Family Medicine [address] [place] [address] Phil Morin, DO [address], [place] [address] [facility] - Family [facility] Start: 07-30-2023 End: 07-30-2023 Patient encounter procedure 07/30/2023 10:20 AM EDT [facility] [address] [place] [address] RonnellPhil queen, DO [address], [place] [address] [facility] Internal Medicine - Family [facility] Start: 01-19-2023 COVID-19 Vaccine ( season) COVID-19 Vaccine ( season) [facility] Start: 01-12-2023 FUV, Provider: Renetta Langston, Status: Pen, Time: 2:10 PM FUV, Provider: Renetta Langston, Status: Pen, Time: 2:10 PM [facility] 250 DO Work Phone: Start: 07-14-2022 FUV, Provider: Renetta Langston, Status: Pen, Time: 3:10 PM FUV, Provider: Renetta Langston, Status: Pen, Time: 3:[address] [facility] Work Phone: Start: 06-27-2022 FUV, Provider: Edwige Jacobsen, Status: Pen, Time: 9:10 AM FUV, Provider: Edwige Jacobsen, Status: Pen, Time: 9:[address] [facility] Work Phone: Start: 12-13-2021 FUV, Provider: Renetta Langston, Status: Pen, Time: 8:50 AM FUV, Provider: Renetta Langston, Status: Pen, Time: 8:50 AM [facility] 250 DO Work Phone: Start: 06-03-2016 Creatinine measurement Creatinine Level [facility] Start: 06-03-2016 Potassium measurement Potassium Level [facility] Start: 09-25-2015 Administration of varicella zoster vaccine Zoster (Shingles) Vaccine (1 of 2) [facility] Start: 09-25-2015 Zoster Vaccines (2 of 3) Zoster Vaccines (2 of 3) [facility] Start: 1994 RSV patients and/or patients aged 60+ years (1 - 1-dose 60+ series) RSV patients and/or patients aged 60+ years (1 - 1-dose 60+ series) [facility] Start: 1952 Diabetes mellitus screening Diabetes Screening [facility] Start: 02-13-1935 Examination of skin Derm Melanoma Skin Check [facility] Start: 1934 Echocardiography Echocardiogram [facility] Start: 1934 Lipid panel Lipid Panel [facility] Start: 1934 Medicare Annual Wellness [facility] Start: 1934 Screening for osteoporosis Bone Density Scan [facility] End: 05-29-2024 Comprehensive metabolic 2000 panel - Serum or Plasma Comprehensive metabolic panel Lab Routine Hypertensive 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 ([facility]) 1 Occurrences starting 05/29/2023 until 05/29/2024 [employer] Comment on above: 1 Occurrences starting 05/29/2023 until 05/29/2024 End: 05-29-2024 Hemoglobin A1c/Hemoglobin.total in Blood Hemoglobin A1c Lab Routine Type 2 diabetes mellitus without complication, without long-term current use of insulin ([facility]) 1 Occurrences starting 05/29/2023 until 05/29/2024 [employer] Comment on above: 1 Occurrences starting 05/29/2023 until 05/29/2024 End: 05-29-2024 Lipid panel Lipid panel Lab Routine Arteriosclerotic vascular disease 1 Occurrences starting 05/29/2023 until 05/29/2024 [facility] Comment on above: 1 Occurrences starting 05/29/2023 until 05/29/2024 End: 05-29-2024 Protime & INR Protime & INR Lab Routine Paroxysmal atrial fibrillation ([facility]) 1 Occurrences starting 05/29/2023 until 05/29/2024 [facility] Work Phone: Comment on above: 1 Occurrences starting 05/29/2023 until 05/29/2024 End: 05-29-2024 Thyrotropin [Units/volume] in Serum or Plasma TSH Lab Routine Hypothyroidism, unspecified type 1 Occurrences starting 05/29/2023 until 05/29/2024 [facility] Comment on above: 1 Occurrences starting 05/29/2023 until 05/29/2024 Immunizations Immunization Date Immunization Notes Care Provider [facility] 03-30-2023 Influenza, High-dose , Quadrivalent Philgirish Myersng DO Work Phone: [facility] 03-30-2023 influenza virus vacc ine, unspecified formulation Phil Myersng DO Work Phone: [facility] 02-16-2022 Fluzone High-Dose Quadrivalent 0.7 ML Intramuscular Suspension Prefilled Syringe Phil Morin Work Phone: [facility] [employer] DO Work Phone: 01-28-2021 Fluad Quadrivalent 0 .5 ML Intramuscular Prefilled Syringe Phil Morin Work Phone: [facility] 250 DO Work Phone: 07-14-2020 Pfizer-BioNTech COVI D-19 Vacc 30 MCG/0.3ML Intramuscular Suspension Phil Morin Work Phone: [facility] 250 DO Work Phone: 07-01-2020 Pfizer-BioNTech COVI D-19 Vacc 30 MCG/0.3ML Intramuscular Suspension Phil Morin Work Phone: [facility] 06-16-2020 COVID-19, mRNA, LNP- S, PF, 30mcg/0.3mL Dose Phil Reynagayrn DO Work Phone: [facility] 06-11-2020 [id number] COVI D-19 Vacc 30 MCG/0.3ML Intramuscular Suspension [facility] Work Phone: [place] [address] DO Work Phone: 04-05-2020 pneumococcal polysaccharide vaccine, 23 valent [facility] Work Phone: [place] [address] DO Work Phone: 02-23-2020 Fluad Quadrivalent 0 .5 ML Intramuscular Prefilled Syringe [facility] Work Phone: [place] [address] DO Work Phone: 02-19-2020 influenza, seasonal, injectable [facility] Work Phone: [place] [address] DO Work Phone: 07-20-2019 pneumococcal conjuga te vaccine, 13 valent [facility] Work Phone: [place] [address] DO Work Phone: 03-12-2019 pneumococcal conjuga te vaccine, 13 valent Phil Soliz [place] Work Phone: [place] [address] DO Work Phone: 03-12-2019 Seasonal trivalent influenza vaccine, adjuvanted, preservative free Phil Soliz [place] Work Phone: [place] [address] DO Work Phone: 02-18-2019 influenza virus vacc ine, unspecified formulation [facility] Work Phone: [place] [address] DO Work Phone: 03-04-2018 influenza virus vacc ine, unspecified formulation Phil Reynagalong Work Phone: [facility] [employer] DO Work Phone: 08-10-2017 tetanus toxoid, redu edwin diphtheria toxoid, and acellular pertussis vaccine, adsorbed Phil Soliz [place] Work Phone: [place] [address] DO Work Phone: 03-21-2017 influenza virus vacc ine, unspecified formulation Phil Reynagalong Work Phone: [place] [address] DO Work Phone: 03-13-2017 influenza, seasonal, injectable Phil Soliz [place] Work Phone: [place] [address] DO Work Phone: 02-21-2016 influenza, seasonal, injectable, preservative free Phil Reynagalong Work Phone: [place] [address] DO Work Phone: 02-19-2016 influenza virus vacc ine, unspecified formulation Phil Reynagalong Work Phone: [place] [address] DO Work Phone: 07-31-2015 zoster vaccine, live Phil Reynagalong Work Phone: [place] [address] DO Work Phone: 07-31-2015 zoster vaccine, unspecified formulation Phil Ronnelllong DO Work Phone: [facility] 02-18-2015 influenza virus vacc ine, unspecified formulation Phil G [place] Work Phone: [place] [address] DO Work Phone: 02-17-2015 influenza, seasonal, injectable, preservative free Phil Furlong DO Work Phone: [facility] 05-11-2014 pneumococcal polysaccharide vaccine, 23 valent Phil G [place] Work Phone: [facility] 250 DO Work Phone: 02-18-2014 influenza virus vacc ine, unspecified formulation Phil Soliz [place] Work Phone: [place] [address] DO Work Phone: 04-03-2013 pneumococcal conjuga te vaccine, 13 valent Phil Soliz [place] Work Phone: [place] [address] DO Work Phone: 02-18-2013 influenza virus vacc ine, unspecified formulation Phil Soliz [place] Work Phone: [place] [address] DO Work Phone: 02-18-2013 pneumococcal polysaccharide vaccine, 23 valent Phil G [place] Work Phone: [place] [address] DO Work Phone: 12-20-2011 influenza virus vacc ine, unspecified formulation Phil Soliz [employer] Work Phone: [place] [address] DO Work Phone: 05-21-2010 influenza virus vacc ine, unspecified formulation Phil Soliz [place] Work Phone: [place] [address] DO Work Phone: 05-21-2009 influenza virus vacc ine, unspecified formulation Phil G [place] Work Phone: [facility] 250 DO Work Phone: 05-21-2008 influenza virus vacc ine, unspecified formulation Phil G [place] Work Phone: [facility] 250 DO Work Phone: 05-21-2007 pneumococcal polysaccharide vaccine, 23 valent Phil G [place] Work Phone: [facility] 250 DO Work Phone: 03-28-2002 pneumococcal polysaccharide vaccine, 23 valent Phil Myersng [facility] DO Work Phone: 03-21-2002 pneumococcal polysaccharide vaccine, 23 valent Phil Morin DO Work Phone: [facility] 1934 pneumococcal conjuga te vaccine, 7 valent Karlie Craig Dept. of Dermatology Payers Date Payer Category Payer Self-pay [id number] 2022 Medicare [id number] 1959 Private Health Insurance [id number] 1959 Private Health Insurance [id number] 1934 Unknown [id number] 2..840.1.730304.3.579.2.593 1934 Unknown [id number] .840.1.162683.3.579.2.593 1934 Unknown [id number] 2..840.1.211188.3.579.2.593 1934 Unknown [id number] 2.16.840.1.112269.3.579.2.593 1934 Unknown [id number] 2.16.840.1.546923.3.579.2.593 1934 Unknown [id number] 2.16.840.1.224695.3.579.2.593 1934 Unknown [id number] 2.16.840.1.641617.3.579.2.593 1934 Unknown [id number] 2.16.840.1.277034.3.579.2.593 1934 Unknown [id number] 2.16.840.1.005871.3.579.2.593 1934 Unknown [id number] 2.16.840.1.125871.3.579.2.593 1934 Unknown [id number] 2.16.840.1.426878.3.579.2.593 1934 Unknown [id number] 2.16.840.1.917367.3.579.2.593 1934 Unknown [id number] 2.16.840.1.198825.3.579.2.593 1934 Unknown [id number] 2.16.840.1.138616.3.579.2.356 1934 Unknown [id number] 2.16.840.1.388797.3.579.2.356 1934 Unknown [id number] 2.16.840.1.135217.3.579.2.356 1934 Unknown [id number] 2.16.840.1.752623.3.579.2.356 1934 Unknown [id number] 2.16.840.1.984421.3.579.2.356 1934 Unknown [id number] 2.16.840.1.333239.3.579.2.356 1934 Unknown [id number] 2.16.840.1.214260.3.579.2.356 1934 Unknown [id number] 2.16.840.1.470225.3.579.2.356 1934 Unknown [id number] 2.16.840.1.692035.3.579.2.356 1934 Unknown [id number] 2.840.1.933289.3.579.2.356 1934 Unknown [id number] 2.840.1.610435.3.579.2.356 1934 Unknown [id number] 2.840.1.818292.3.579.2.356 1934 Unknown [id number] 2.840.1.915861.3.579.2.356 1934 Unknown [id number] 2.0.1.299279.3.579.2.356 1934 Unknown [id number] 2.0.1.900046.3.579.2.1286 1934 Unknown [id number] .0.1.310500.3.579.2.1286 1934 Unknown [id number] 2.0.1.384334.3.579.2.1286 1934 Unknown [id number] .0.1.505449.3.579.2.1244 Medicare Medicare [id number] Medicare Medicare [id number] Unknown Unknown [employer] BC/BS [id number] Unknown [id number] 2.0.1.509458.3.579.2.531 Unknown [id number] 2.840.1.848298.3.579.2.531 Unknown [id number] 2.840.1.221047.3.579.2.531 Unknown [id number] 2.840.1.880106.3.579.2.531 Social History Date Type Detail Facility Start: 05-29-2023 End: 11-05-2023 No alcohol use No alcohol use -[facility] 250 DO Work Phone: Comment on above: 2 cups coffee daily; Start: 07-19-2019 End: 07-11-2023 Tobacco smoking status NHIS Never smoked tobacco (finding) [facility] Start: 1934 End: 1934 Sex Assigned At Male [facility] Start: 02-28-2022 Dept. of D ermatology Start: 03-31-2022 End: 07-11-2023 Tobacco use and exposure Smokeless tobacco non-user [facility] Start: 05-29-2023 End: 08-06-2023 Alcohol intake Ex-drinker (finding) [employer] [facility] Start: 05-29-2023 End: 11-05-2023 [facility] tem Has the [employer], or [employer] threatened to shut off services in your [...] - these days [OSQ] Not at all [employer] [facility] Start: 1935 Sex Assigned At Not on file [employer] [facility] Start: 11-05-2023 Alcoholic beverage intake Lifetime non-drinker (finding) [facility] Work Phone: Start: 10-26-2023 End: 11-05-2023 Exposure to SARS-CoV-2 (event) Not sure [facility] Goals Date Patient Goal Desired Activity [...] discussion and plan. documented in this encounter [facility] Work Phone: 11-05-2023 Instructions Dex Crump [...] of your visit. documented in this encounter [facility] Work Phone: 08-06-2023 History of Present [...] lipid panel Stage 4 chronic kidney disease ([facility]) TSH; Future Check TSH and CMP. Type 2 diabetes mellitus without complication, without long-term current use of insulin ([facility]) - Hemoglobin A1c; Future - TSH; Future Check A1c. Hyperparathyroidism ([facility]) Check kidney function test. Malignant melanoma of scalp or neck ([facility]) He does not want to go back to see the specialist. I am not sure what surgery the specialist had planned Longstanding persistent atrial fibrillation ([facility]) Seems to be in sinus rhythm now. Continue Eliquis Paroxysmal atrial fibrillation ([facility]) Microalbuminuric diabetic nephropathy ([facility]) Check labs documented in this encounter [employer] 05-29-2023 History of Present illness Narrative Subjective [...] orders for this visit: Paroxysmal atrial fibrillation ([facility]) - Protime & INR; Future New order for protime and INR given to the patient. I will also fax to the [facility]. Hypertensive 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 ([facility]) - Comprehensive metabolic panel; Future Check CMP. [...] complication, without long-term current use of insulin ([facility]) - Hemoglobin A1c; Future Check A1c Arteriosclerotic vascular disease - Lipid panel; Future Check lipid panel documented in this encounter [facility] Evaluation note No assessment inform ation available [facility] Work Phone: Evaluation note N/A Dept. of Dermato logy Evaluation note Diagnosis Paroxysmal atrial fibrillation ([facility])- Primary Atrial fibrillation Hypertensive 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 ([facility]) Essential hypertension Unspecified essential hypertension Hypothyroidism, unspecified type Type 2 diabetes mellitus without complication, without long-term current use of insulin ([facility]) Arteriosclerotic vascular disease Generalized and unspecified atherosclerosis [facility] Diagnosis Longstanding persistent atrial fibrillation ([facility] Primary [facility]* Diagnosis Hypertensive heart and renal [...] fibrillation (CMS-HCC) Atrial fibrillation Microalbuminuric diabetic nephropathy ([facility]) documented in this encounter [facility]* Diagnosis Type 2 diabetes mellitus without complication, without long-term current use of insulin ([facility])- Primary 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) documented in this encounter [facility]* Diagnosis Arteriosclerotic cardiovascular disease (ASCVD)- Primary Unspecified cardiovascular disease Essential hypertension Unspecified essential hypertension Mixed hyperlipidemia Ventricular tachycardia (Multi) Paroxysmal ventricular tachycardia ICD (implantable cardioverter-defibrillator) in place Dilated cardiomyopathy (Multi) Other primary cardiomyopathies Ischemic cardiomyopathy Other specified forms of chronic ischemic heart disease documented in this encounter [facility] Work Phone: History of Present illness [...] the above we will continue as is. -[facility] 250 DO Work Phone: History of [...] the above we will continue as is. [facility] DO Work Phone: History of Present [...] the above [facility] [facility] DO Work Phone: History of Present illness Narrative* 86-year-old man referred by Dr. Henradez for management of a melanoma of the [...] significant cardiac hx with decreased cardiac function [facility] Work Phone: History of Present illness NarrativePatient [...] we believe his cardiac status to be stable.[facility] Work Phone: History [...] we suggested continued therapy as before without change.[facility] [place] DO Work Phone: InstructionsNot on filedocumented in this encounter [facility]ructionsNot on filedocumented in this encounter [facility] System[facility]ructionsNot on filedocumented in this encounter [facility] SystemInstructionsNot on filedocumented in this encounter [facility] SystemReason for referral (narrative)* Name Reason for referral NA NA Dept. of Dermatology Reason for referral (narrative)* Consultation (Routine) - Authorized Specialty Diagnoses / Procedures Referred By Nuvia ware Referred To Contact Cardiology Diagnoses Arteriosclerotic cardiovascular disease (ASCVD) Procedures Follow Up In Cardiology Renetta Langston MD [address] [facility] [address], [address] [address] Roslyn Mckenzie MD [address] [facility] [address], [address] [address] Referral ID Status Reason Start Date Expiration Date V isits Requested Visits Authorized [id number] Authorized 11/05/2023 11/04/2024 1 1 T [facility] Work Phone: Summary Purpose Family History [...] section and content) DATE CREATED AUTHOR 08/08/2019 [facility] DATE CREATED AUTHOR AUTHOR'S ORGANIZ ATION 02/27/2020 [place] [facility] DATE CREATED AUTHOR AUTHOR'S ORGANIZ ATION 08/24/2021 [facility] DATE CREATED AUTHOR AUTHOR'S ORGANIZ ATION 10/27/2022 [facility] DATE CREATED AUTHOR AUTHOR'S ORGANIZ ATION 01/13/2023 [facility] DATE CREATED AUTHOR AUTHOR'S ORGANIZ ATION 01/14/2023 [employer] DATE CREATED AUTHOR AUTHOR'S ORGANIZ ATION 08/06/2023 [facility] DATE CREATED AUTHOR AUTHOR'S ORGANIZ ATION 08/07/2023 [facility] DATE CREATED AUTHOR AUTHOR'S ORGANIZ ATION 11/05/2023 [facility] DATE CREATED AUTHOR AUTHOR'S ORGANIZ ATION 12/29/2023 [facility] Care Teams (unrecognized sec tion and content) Team Status: Active Member Role Status Dates Phil Morin DO Primary Care Provider Active Team Status: Inactive Member Role Status Dates Phil Morin DO Primary Care Provider Active Renetta Langston MD Attending Provider Active [employer] Relationship Specialty Start Date End Date Phil Morin DO [address], [place] [address] PCP - General Family Medicine 03/07/22 Team Status: Inactive Member Role Status Dates Phil Morin DO Primary Care Provider Active Start: June 28, 2023 End: June 28, 2023 Renetta Langston MD Attending Provider Active Start: June 28, 2023 End: June 28, 2023 [employer]r Relationship Specialty Start Date End Date RonnellbretPhil DO [address], [place] [address] PCP - General Family Medicine 03/07/22 [employer] Repairer Relationship Specialty Start Date End Date PatiencePhil [address], [place] [address] PCP - General Family Medicine 03/07/22 [employer]r Relationship Specialty Start Date End Date RonnellbretPhil [address], [place] [address] PCP - General Family Medicine 03/07/22 [employer] Rep[employer]r Relationship Specialty Start Date End Date RonnellbretPhil DO [address], [place] [address] PCP - General Family Medicine 03/07/22 Team Status: Inactive Member Role Status Dates Phil Morin DO Primary Care Provider Active Start: September 27, 2023 End: September 27, 2023 Renetta Langston MD Attending Provider Active Start: September 27, 2023 End: September 27, 2023 [employer] Repairer Relationship Specialty Start Date End Date Patience Phil Forrest [address], [place] [address] PCP - General 05/06/14 Team Status: Inactive [...] BE BASED ON THE PRIMARY CLINICAL RECORDS. [employer] provides no warranty or guarantee of the accuracy or completeness of information in this document.
[2024-01-07 18:36] VITALS: BP 179/95; PULSE 69; TEMP 36.8; O2SAT 98; BMI 23.0
--- NOTE | 2024-01-07 19:21 | PC.NURSE ---
Dr. Ambrose bedside with pt at this time. Feed Miller Jennifer into assist and hold pressure to pts ear. pt reports daily Plavix.
[2024-01-07] MEDS: LIDOCAINE HCL 1%-EPINEPHRINE 1:100,000 10 ML MDV INJ (19:36)
[2024-01-07] MEDS: SURGIFOAM GEL SPONGE SIZE 100 1 EACH TOPICAL (19:37)
--- NOTE | 2024-01-07 19:41 | ED_ITS ---
HPI HPI - General Adult General Chief complaint: Ear Stated complaint: Ear Bleeding Time Seen by Provider: 01/07/24 19:11 Source: patient Mode of arrival: walk-in Limitations: no limitations History of Present Illness HPI narrative: 88-year-old male presents for bleeding from his surgical wound. This morning he had skin cancer removed from behind his left ear. It started bleeding at home. He takes Plavix. Related Data Previous Rx's ?Medication ?Instructions ?Recorded tramadol 50 mg tablet 50 mg PO Q8H PRN pain #14 tabs 08/24/23 Allergies Allergy/AdvReac Type Severity Reaction Status Date / Time No Known Drug Allergies Allergy Verified 08/24/23 09:54 Opioid HPI Opioid Management Most Recent Opioid Data: No Data to Display Review of Systems ROS Narrative Not able to be obtained, age Exam Narrative Exam Narrative: Nurses note and vital signs reviewed and patient is not hypoxic. General: The patient appears in no apparent distress. He is hard of hearing Skin: Warm, dry, no pallor noted. There is no rash noted. Head: Normocephalic, atraumatic Eye: Normal conjunctiva, no drainage Ears, Nose, Mouth, and Throat: oral mucosa is moist. Nares patent. Posterior to his left ear is a dressing saturated in blood. Upon removal there is a quarter sized round surgical wound with pulsatile bleeding at the posterior aspect. It is controlled with pressure Cardiovascular: Not tachycardic Respiratory: Patient is in no distress, no accessory muscle use, lungs are clear to auscultation, no wheezing, rales or rhonchi GI: Soft and nontender Musculoskeletal: No joint swelling Neurological: Awake and alert Psychiatric: Cooperative Constitutional Vital Signs, click to edit/add: Last Vital Signs Temp 98.2 F 01/07/24 18:36 Pulse 69 01/07/24 18:36 Resp 18 01/07/24 18:36 BP 179/95 H 01/07/24 18:36 Pulse Ox 98 01/07/24 18:36 O2 Del Method Room Air 01/07/24 18:36 Course Vital Signs Vital signs: Vital Signs Temperature 98.2 F 01/07/24 18:36 Pulse Rate 69 01/07/24 18:36 Respiratory Rate 18 01/07/24 18:36 Blood Pressure 179/95 H 01/07/24 18:36 Pulse Oximetry 98 01/07/24 18:36 Oxygen Delivery Method Room Air 01/07/24 18:36 Temperature 98.2 F 01/07/24 18:36 Pulse Rate 69 01/07/24 18:36 Respiratory Rate 18 01/07/24 18:36 Blood Pressure 179/95 H 01/07/24 18:36 Pulse Oximetry 98 01/07/24 18:36 Oxygen Delivery Method Room Air 01/07/24 18:36 Medical Decision Making MDM Narrative Medical decision making narrative: Sutures are placed and there is no further bleeding. He will call his specialist in the morning for follow-up. Differential Diagnosis Differential Diagnosis: Postprocedural hemorrhage Discharge Plan Discharge Stand Alone Forms: Portal Instructions Chief Complaint: Ear Clinical Impression: Postprocedural hemorrhage Patient Disposition: Home, Self-Care Time of Disposition Decision: 19:39 Condition: Good Mode of Transportation: Private Vehicle Prescriptions / Home Meds: No Action tramadol 50 mg tablet 50 mg PO Q8H PRN (Reason: pain) Qty: 14 0RF Print Language: B[place]ian Instructions: Acute Wounds (ED) Additional Instructions: Call the specialist in the morning for follow-up. Your sutures will need to be removed in a week. Referrals: LOU BRUSH [Primary Care Provider] - 1 week Procedures ED Procedure Instructions Procedures Procedures: The following procedure was performed by me. Local infiltration was carried out with 1% lidocaine with epinephrine resulting in good skin anesthesia. The area was prepped with Betadine and two 4-0 Ethilon sutures were placed resulting in complete hemostasis. No complications and he tolerated the procedure well.
--- NOTE | 2024-01-07 19:48 | PC.NURSE ---
pts ear wrapped with surgifoam dressing to top of wound. 4x4 placed on top of surgifoam. head wrapped with Kerlix and Koban at this time. no active bleeding is noted. Dr. Ambrose placed two suture to area behind L ear. pt tolerated as expected.
== END 2024-01-07 20:02 | disposition home or self-care (01) ==
PROVIDERS: Emergency Provider Emergency Medicine; PCP Family Medicine
DX: L76.21 Postprocedural hemorrhage of skin and subcutaneous tissue following a dermatologic procedure (principal)
CPT/HCPCS: 12001; 99282

== ENCOUNTER 2024-01-17 08:58 | Outpatient (OUT) | payer MEDICARE, SELFPAY ==
--- OUTSIDE RECORDS SUMMARY | 2024-01-17 09:21 | XMS_ITS | CCD ---
Author Organization [facility] Providers Care Maltster Name Role Phone Phil Morin Unavailable Unavailable [...] PHIL Soliz Consulting Unavailable FURLONG, DR PHIL Soilz Admitting Unavailable FURLONG, DR PHIL Soliz Attending Unavailable FURLONG, DR PHIL Soliz Primary Care Unavailable FURLONG, DR PHIL Soliz Attending Unavailable FURLONG, DR PHIL Soliz Admitting Unavailable FURLONG, DR PHIL Soliz Primary Care Unavailable FURLONG, DR PHIL Soliz Consulting Unavailable HernadezFlorentino palma Attending Unavailable uener, Dr. Ketan Andrews Referring Unavaila ble Furlong, Dr. Phil Forrest [facility] Care Unava ilable Furlong, Dr. Phil Forrest [facility] Care Unava ilable Furlong, Dr. Phil [...] Unavailable Furlong, DO Phil Primary Care Provider [phone] MD Renetta Langston Attending Provider Furlong Phil [...] Care Provider MD Renetta Langston [facility] Unavailable Renetta Langston Admitting Unavail able Renetta Langston Attending Unavail able [place], Phil Primary Care Unavailable Renetta Langston Admitting Unavail able Renetta Langston Attending Unavail able Renetta Langston Admitting Unavail able Renetta Langston Attending Unavail able [place], Phil Primary Care Unavailable Renetta Langston Attending Unavail able Renetta Langston Admitting Unavail able [facility] Primary [facility] Unavailable Allergies Allergy Classification Reported Allergen(s) Allergy Type Date of Onset Reaction(s) Facility (19 sources) Aspirin; Translations: [aspirin] Drug Allergy 2 Other (See Comments), GI bleeding -[facility] 250 DO [...] 07-19-2019 End: 11-05-2023 Lisinopril Active TABLET Feb [facility] 2019 1:00am rosuvastatin calcium 20 mg oral tablet (20 sources) HMG-CoA Reductase Inhibitor Start: 11-05-2023 take 1 tablet by mouth once daily rosuvastatin (Crestor) 20 mg tablet Indications: Arteriosclerotic cardiovascular disease (ASCVD) , Mixed hyperlipidemia Take 1 tablet (20 mg) by mouth once daily. 90 tablet 3 11/05/2023 Active Start: 07-19-2019 End: 11-05-2023 Rosuvastatin Active TABLET F [facility] 2019 1:00am warfarin sodium 5 mg [...] source) Taking high risk medication; Translations: [Other shelter (current) drug therapy] Onset: 03-01-2023 03-01-2023 Episodic [...] 08-06-2023 Albumin [Mass/Vol] 4.2 g/dL Normal 3.2-5.3 [facility] Comment on above: Performed By: #### Gorge DELANEY, 78564-0, 6-3 #### [facility] ([id number]) [address], [address] [place] [address] ALP [Catalytic activity/Vol] 77 U/L Normal 39-130 [facility] Comment on above: Performed By: #### Gorge DELANEY, 97643-4, 6-3 #### [facility] ([id number]) [address], [address] [place] [address] ALT [Catalytic activity/Vol] 11 U/L Normal 0-40 [facility] Comment on above: Performed By: #### Gorge DELANEY, 00764-6, 3015-3 #### [facility] ([id number]) [address], [address] [place] [address] Anion gap [Moles/Vol] 8 mmol/L Normal 5-15 [facility] Comment on above: Performed By: #### Gorge DELANEY, 77485-9, 6-3 #### [facility] ([id number]) [address], [address] [place] [address] AST [Catalytic activity/Vol] 19 U/L Normal 0-41 [facility] Comment on above: Performed By: #### Gorge DELANEY, 65064-9, 6-3 #### [facility] ([id number]) [address], [address] [place] [address] Bilirubin [Mass/Vol] 0.5 mg/dL Normal 0.3-1.2 [facility] Comment on above: Performed By: #### Gorge DELANEY, 15465-5, 6-3 #### [facility] ([id number]) [address], [address] [place] [address] Calcium [Mass/Vol] 9.1 mg/dL Normal 8.5-10.5 [facility] Comment on above: Performed By: #### C RHETT, 97233-4, 3015-3 #### [facility] ([id number]) [address], [address] [place] [address] Chloride [Moles/Vol] 106 mmol/L Normal 98-109 [facility] Comment on above: Performed By: #### Gorge DELANEY, 00667-3, 3015-3 #### [facility] ([id number]) [address], [address] [place] [address] CO2 [Moles/Vol] 26 mmol/L Normal 22-32 [facility] Comment on above: Performed By: #### Gorge DELANEY, 07863-3, 3015-3 #### [facility] ([id number]) [address], [address] [place] [address] Creatinine [Mass/Vol] 2.12 mg/dL High 0.60-1.30 [facility] Comment on above: Result Comment: METH OD TRACEABLE TO IDMS STANDARD Performed By: #### Gorge DELANEY, 43678-6, 3015-3 #### [facility] ([id number]) [address], [address] [place] [address] GFR/1.73 sq M.predicted among non-blacks MDRD (S/P/Bld) [Vol rate/Area] 29 mL/min/{1.73_m2} Low >59 [facility] Comment on above: Result Comment: Reported eGFR is based on the CKD-EPI 2020 equation that does not use a race coefficient. Performed By: #### Gorge DELANEY, 01714-8, 3015-3 #### [facility] ([id number]) [address], [address] [place] [address] Glucose [Mass/Vol] 113 mg/dL High 65-99 [facility] Comment on above: Performed By: #### Gorge DELANEY, 30689-5, 6-3 #### [facility] ([id number]) [address], [address] [place] [address] Potassium [Moles/Vol] 4.8 mmol/L Normal 3.5-5.0 [facility] Comment on above: Performed By: #### Gorge DELANEY, 97859-8, 6-3 #### [facility] ([id number]) [address], [address] [place] [address] Protein [Mass/Vol] 7.0 g/dL Normal 6.0-8.0 [facility] Comment on above: Performed By: #### Gorge DELANEY, 98474-9, 6-3 #### [facility] ([id number]) [address], [address] [place] [address] Sodium [Moles/Vol] 140 mmol/L Normal 134-146 [facility] Comment on above: Performed By: #### Gorge DELANEY, 38940-3, 6-3 #### [facility] ([id number]) [address], [address] [place] [address] Urea nitrogen [Mass/Vol] 24 mg/dL Normal 5-27 [facility] Comment on above: Performed By: #### Gorge DELANEY, 75291-6, 6-3 #### [facility] ([id number]) [address], [address] [place] [address] Comprehensive metabolic pane donato 08-06-2023 Albumin [Mass/Vol] 4.2 g/dL 3.2 - 5.3 g/dL [facility] ALP [Catalytic activity/Vol] 77 U/L 39 - 130 U/L [facility] ALT No additional P-5'-P [Catalytic activity/Vol] 11 U/L 0 - 40 U/L [facility] Anion gap [Moles/Vol] 8 mmol/L 5 - 15 mmol/L [facility] AST [Catalytic activity/Vol] 19 U/L 0 - 41 U/L [facility] Bilirubin [Mass/Vol] 0.5 mg/dL 0.3 - 1 .2 mg/dL [facility] Calcium [Mass/Vol] 9.1 mg/dL 8.5 - 10. 5 mg/dL [facility] Chloride [Moles/Vol] 106 mmol/L 98 - 10 9 mmol/L [facility] CO2 [Moles/Vol] 26 mmol/L 22 - 32 mmol/L [facility] Creatinine [Mass/Vol] 2.12 mg/dL High 0.60 - 1.30 mg/dL [facility] Comment on above: METHOD TRACEABLE TO [facility] STANDARD eGFR (CKD-EPI)non-race dependent 29 Low - PINF [facility] Comment on above: Reported eGFR is based on the CKD-EPI 2020 equation that does not use a race coefficient. Glucose [Mass/Vol] 113 mg/dL High 65 - 99 mg/dL [facility] Potassium [Moles/Vol] 4.8 mmol/L 3.5 - 5.0 mmol/L [facility] Protein [Mass/Vol] 7.0 g/dL 6.0 - 8.0 g/dL [facility] Sodium [Moles/Vol] 140 mmol/L 134 - 146 mmol/L [facility] Urea nitrogen [Mass/Vol] 24 mg/dL 5 - 27 mg/dL [facility] HGB A1C (GLYCO-HGB)on 2023 Glucose [Mass/Vol] 140 mg/dL Normal [facility] Comment on above: Performed By: #### C , 70754-6, 3016-3 #### [facility] ([id number]) [address], [address] [place] [address] HbA1c (Bld) [Mass fraction] 6.5 % High 4.4-5.6 [facility] Comment on above: Result Comment: NOTE ADA Guidelines Result HgbA1c Normal : less than 5.7 % Prediabetes : 5.7 % to 6.4 % Diabetes : > 6.4 % Use with caution in patients with abnormal hemoglobin variants as the half-life of red blood cells and in vivo glycation rates are affected. Performed By: #### C , 39418-9, 3016-3 #### [facility] ([id number]) [address], [address] [place] [address] Hemoglobin A1con 08-06-2023 Average glucose Estimated from glycated hemoglobin (Bld) [Mass/Vol] 140 mg/dL [facility] HbA1c (Bld) [Mass fraction] 6.5 % High 4.4 - 5.6 % [facility] Comment on above: NOTE ADA Guidelines Result HgbA1c Normal : less than 5.7 % Prediabetes : 5.7 % to 6.4 % Diabetes : > 6.4 % Use with caution in patients with abnormal hemoglobin variants as the half-life of red blood cells and in vivo glycation rates are affected. Interpretation and review of laboratory results Abnormal [facility] Lipid 1996 panelon Cholesterol [Mass/Vol] 91 mg/dL Low 150 - 200 mg/dL [facility] Cholesterol in HDL [Mass/Vol] 39 mg/dL Low 39 - PINF mg/dL [facility] Comment on above: HDL <40 mg/dL - High Risk HDL > or = 40mg/dL- Desirable HDL >60 mg/dL - Negative Risk Cholesterol in LDL [Mass/Vol] 18 mg/dL NINF - 130 mg/dL [facility] Comment on above: LDL <100 mg/dL - Desirable LDL >160 mg/dL - High Risk Cholesterol in VLDL [Mass/Vol] 34 mg/dL High 0 - 30 mg/dL [facility] Cholesterol.total/Chol esterol in HDL [Mass ratio] 2.3 {ratio} 1.0 - 5.0 [facility] Triglyceride [Mass/Vol] 168 mg/dL High 27 - 150 mg/dL [facility] Cholesterol [Mass/Vol] 91 mg/dL Low 150-200 [facility] Comment on above: Performed By: #### Gorge DELANEY, 53131-0, 3016-3 #### [facility] ([id number]) [address], [address] [place] [address] Cholesterol in HDL [Mass/Vol] 39 mg/dL Low >39 [facility] Comment on above: Result Comment: HDL <40 mg/dL - High Risk HDL > or = 40mg/dL- Desirable HDL >60 mg/dL - Negative Risk Performed By: ###[place], [address]-8, 6-3 #### [facility] ([id number]) [address], [address] [place] [address] Cholesterol in LDL [Mass/Vol] 18 mg/dL Normal <130 [facility] Comment on above: Result Comment: LDL <100 mg/dL - Desirable LDL >160 mg/dL - High Risk Performed By: ###[place], [address]-8, 6-3 #### [facility] ([id number]) [address], [address] [place] [address] Cholesterol in VLDL [Mass/Vol] 34 mg/dL High 0-30 [facility] Comment on above: Performed By: #### Gorge DELANEY, 48724-5, 6-3 #### [facility] ([id number]) [address], [address] [place] [address] CHOLESTEROL:HDL 2.3 Normal 1.0-5.0 [facility] Comment on above: Performed By: #### Gorge DELANEY, 23005-2, 3016-3 #### [facility] ([id number]) [address], [address] [place] [address] Triglyceride [Mass/Vol] 168 mg/dL High 27-150 [facility] Comment on above: Performed By: #### Gorge DELANEY, 34227-7, 3016-3 #### [facility] ([id number]) [address], [address] [place] [address] No Panel Informationon 08-05 Interpretation and review of laboratory results Abnormal [facility] TSHon 08-06-2023 TSH Qn 3.12 m[IU]/L [facility] TSH Qnon 08-06-2023 [facility] TSH 3.12 uIU/mL Normal 0.49-4.67 [facility] Comment on above: Performed By: #### Gorge DELANEY, 58617-7, 3016-3 #### [facility] ([id number]) [address], [address] [place] [address] Protime & INRon 07-18-2023 External Inr 2.02 [facility] External Protime 20.6 [facility] Office Visit (Cardiology)on 01-12-2023 Follow-up visit [...] a smoker Tobacco Use Screening; Status:Complete; Done: [id number] Ventricular tachycardia IO EKG Electrocardiogram- 12 Lead; Status:Complete; Done: [id number] Patient Instructions Please bring all medicines, vitamins, [...] negative for complaint. Vitals Vital Signs Recorded: [id number] 02:17PM Heart Rate72, Apical Jeeuelov535, RUE, Sitting Ycucqjenb27, RUE, Sitting Height5 ft 9 in Ghvcdl352 lb BMI Kszroctuzy80.78 kg/m2 BSA Calculated1.88 Tobacco Useb) No Falls [...] a) No falls within the last year [facility] 250 DO Work Phone: Tobacco use status CP b) No [facility] 250 DO Work Phone: PROTIMEon 10-17-2022 INR Coag (PPP) [Relative time] 2.38 {INR} Normal [facility] Comment on above: Performed By: #### P T #### [facility] [address] [place] [address] Dr. Sariah Boyle INR GUIDELINES SEE BELOW Normal [facility] Comment on above: Result Comment: NHUNG RED INR: 2.0 - 3.0 CONDITIONS NOT LISTED BELOW 2.5 - 3.5 FOR PROSTHETIC HEART VALVE REPLACEMENT 2.5 - 3.5 RECURRENT THROMBOSIS Performed By: #### P T #### [facility] [address] [place] [address] Dr. Sariah Boyle PT Coag (PPP) [Time] 24.0 s Critically high 9.0-11.6 [facility] Comment on above: Performed By: #### P T #### [facility] [address] [place] [address] Dr. Sariah Boyle PROTIMEon 09-15-2022 INR Coag (PPP) [Relative time] 2.18 {INR} Normal [facility] Comment on above: Performed By: #### P T #### [facility] [address] [place] [address] Dr. Sariah Boyle INR GUIDELINES SEE BELOW Normal [facility] Comment on above: Result Comment: NHUNG RED INR: 2.0 - 3.0 CONDITIONS NOT LISTED BELOW 2.5 - 3.5 FOR PROSTHETIC HEART VALVE REPLACEMENT 2.5 - 3.5 RECURRENT THROMBOSIS Performed By: #### P T #### [facility] [address] [place] [address] Dr. Sariah Boyle PT Coag (PPP) [Time] 22.1 s Critically high 9.0-11.6 [facility] Comment on above: Performed By: #### P T #### [facility] [address] [place] [address] Dr. Sariah Boyle PROTIMEon 08-15-2022 INR Coag (PPP) [Relative time] 2.44 {INR} Normal [facility] Comment on above: Performed By: #### P T #### [facility] [address] [place] [address] Dr. Sariah Boyle INR GUIDELINES SEE BELOW Normal [facility] Comment on above: Result Comment: NHUNG RED INR: 2.0 - 3.0 CONDITIONS NOT LISTED BELOW 2.5 - 3.5 FOR PROSTHETIC HEART VALVE REPLACEMENT 2.5 - 3.5 RECURRENT THROMBOSIS Performed By: #### P T #### [facility] [address] [place] [address] Dr. Sariah Boyle PT Coag (PPP) [Time] 24.6 s Critically high 9.0-11.6 [facility] Comment on above: Performed By: #### P T #### [facility] [address] [place] [address] Dr. Sariah Boyle PROTIMEon 07-18-2022 INR Coag (PPP) [Relative time] 2.33 {INR} Normal [facility] Comment on above: Performed By: #### P T #### [facility] [address] [place] [address] Dr. Sariah Boyle INR GUIDELINES SEE BELOW Normal [facility] Comment on above: Result Comment: NHUNG RED INR: 2.0 - 3.0 CONDITIONS NOT LISTED BELOW 2.5 - 3.5 FOR PROSTHETIC HEART VALVE REPLACEMENT 2.5 - 3.5 RECURRENT THROMBOSIS Performed By: #### P T #### [facility] [address] [place] [address] Dr. Sariah Boyle PT Coag (PPP) [Time] 23.5 s Critically high 9.0-11.6 [facility] Comment on above: Performed By: #### P T #### [facility] [address] [place] [address] Dr. Sariah Boyle Office Visit (Cardiology)on 07-14-2022 [...] negative for complaint. Vitals Vital Signs Recorded: [id number] 03:41PM Heart Rate80, L Radial Tdzjghba071, LUE, Sitting Npquwszfb38, LUE, Sitting Height5 ft 9 in Vhswud521 lb BMI Jwdkgovkpr46.92 kg/m2 BSA Calculated1.89 Tobacco Useb) No PHQ-2 [...] Screening.on 023 Adult depression screening assessment No [facility] 250 DO Work Phone: Fall risk assessment a) No falls within the last year [facility] 250 DO Work Phone: Tobacco use status CPHS b) No [facility] 250 DO Work Phone: PROTIMEon 07-04-2022 INR Coag (PPP) [Relative time] 1.91 {INR} Normal [facility] Comment on above: Performed By: #### P T #### [facility] [address] [address] [address] Sariah Boyle INR GUIDELINES SEE BELOW Normal [facility] Comment on above: Result Comment: NHUNG RED INR: 2.0 - 3.0 CONDITIONS NOT LISTED BELOW 2.5 - 3.5 FOR PROSTHETIC HEART VALVE REPLACEMENT 2.5 - 3.5 RECURRENT THROMBOSIS Performed By: #### P T #### [facility] [address] [address] [address] Sariah Boyle PT Coag (PPP) [Time] 19.5 s Critically high 9.0-11.6 [facility] Comment on above: Performed By: #### P T #### [facility] [address] [address] [address] Sariah Boyle Dermatopathologyon Dermatopathology Name RIO [...] determined by the Department of Pathology at [facility]. The FDA does not require this [...] appropriately. Electronically Signed Out By RIGO CHRISTIAN MD/[facility] By the signature on this report, the individual or group listed as making the Final Interpretation/Diagno sis certifies that they have reviewed this case. 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 ([facility]). Specimens Submitted As: A: SKIN, SCALP STAGE II A B: SKIN, SCALP STAGE II B Gross Description: A: Received in formalin, labeled A, is a camara, semi-circular, ellipsoid piece of skin measuring [id number], oriented by the surgeon with orange ink on the bisected margin and blue ink marking the radii on either side of the central black-inked margin. The specimen is embedded en face in toto in one block. B: Received in formalin, labeled B, is a camara, semi-circular, ellipsoid piece of skin measuring [id number], oriented by the surgeon with orange ink on the bisected margin and green ink marking the radii on either side of the central black-inked margin. The specimen is embedded en face in toto in one block. dcp/06/16/2022 The assays/tests were performed with appropriate positive and negative controls which stained appropriately. [facility] [place] [id number] [place] [address] Normal [facility] Comment on above: Performed By: #### D #### Dermatopathology No Panel Informationon 06-[address] [place] [address] DO Work Phone: PROTIMEon 06-07-2022 INR Coag (PPP) [Relative time] 1.44 {INR} Normal [facility] Comment on above: Performed By: #### P T #### [facility] [address] [place] [address] Dr. Sariah Boyle INR GUIDELINES SEE BELOW Normal [facility] Comment on above: Result Comment: NHUNG RED INR: 2.0 - 3.0 CONDITIONS NOT LISTED BELOW 2.5 - 3.5 FOR PROSTHETIC HEART VALVE REPLACEMENT 2.5 - 3.5 RECURRENT THROMBOSIS Performed By: #### P T #### [facility] [address] [address] [address] Sariah Boyle PT Coag (PPP) [Time] 15.0 s Critically high 9.0-11.6 [facility] Comment on above: Performed By: #### P T #### [facility] [address] [address] [address] Sariah Boyle Dermatopathologyon 3 Dermatopathology Name RIO JACOME Pathologist: RIGO CHRISTIAN MD Date of Procedure: 06/06/2022 Date Received: 06/07/2022 Date Reported 06/12/2022 Submitting Physician: FLROENTINO HERNADEZ MD, Location: [facility] Other External # FINAL DIAGNOSIS A. [...] M.D. Electronically Signed Out By RIGO CHRISTIAN MD/[facility] By the signature on this report, the individual or group listed as making the Final Interpretation/Diagno sis certifies that they have reviewed this case. Diagnostic interpretation performed at [facility]opath [facility] [id number], [facility] [address] Microscopic Description: A. Microscopic examination reveals a [...] lentigo stage I maligna type. Path #: [id number]. A1, B1, C1, D1, E1, F1, G1. Excision. ([facility]). Specimens Submitted As: A: SKIN, OCCIPITAL SCALP A1 B: SKIN, OCCIPITAL SCALP B1 C: SKIN, OCCIPITAL SCALP C1 D: SKIN, OCCIPITAL SCALP D1 E: SKIN, OCCIPITAL SCALP E1 F: SKIN, OCCIPITAL SCALP F1 G: SKIN, OCCIPITAL SCALP G1 DEBULK Gross Description: A: Received in formalin, labeled A1, is a camara, ellipsoid piece of skin measuring [id number], oriented by the surgeon with yellow ink on one margin, orange ink on the opposite margin, and black ink marking the margin opposite the surgical margin. The specimen is embedded en face in toto in one block. B: Received in formalin, labeled B1, is a camara, ellipsoid piece of skin measuring 59c5b3wf, oriented by the surgeon with orange ink on one surgical margin, green ink on the opposite margin, black ink marking the margin opposite the surgical margin. The specimen is embedded en face in toto in one block. C: Received in formalin, labeled C1, is a camara, ellipsoid piece of skin measuring [id number], oriented by the surgeon with green ink on one margin, yellow ink on the opposite margin, and black ink marking the margin opposite the surgical margin. The specimen is embedded en face in toto in one block. D: Received in formalin, labeled D1, is a camara, ellipsoid piece of skin measuring 10q0m4rc, oriented by the surgeon with yellow ink on one margin, red ink on the opposite margin, and black ink marking the margin opposite the surgical margin. E: Received in formalin, labeled E1, is a camara, ellipsoid piece of skin measuring 25a4c4nk, oriented by the surgeon with red ink on one margin, blue ink on the opposite margin, and black ink marking the margin opposite the surgical margin. F: Received in formalin, labeled F1, is a camara, ellipsoid piece of skin measuring 58c7y9sa, oriented by the surgeon with blue ink on one margin, yellow ink on the opposite margin, and black ink marking the margin opposite the surgical margin. G: Received in formalin, labeled G1, (more content not included)... Normal [facility] Comment on above: Performed By: #### D #### Dermatopathology No Panel Informationon 06-06 [facility] 250 DO Work Phone: PROTIMEon 05-08-2022 INR Coag (PPP) [Relative time] 2.06 {INR} Normal [facility] Comment on above: Performed By: #### P T #### [facility] [address] [place] [address] Dr. Sariah Boyle INR GUIDELINES SEE BELOW Normal [facility] Comment on above: Result Comment: NHUNG RED INR: 2.0 - 3.0 CONDITIONS NOT LISTED BELOW 2.5 - 3.5 FOR PROSTHETIC HEART VALVE REPLACEMENT 2.5 - 3.5 RECURRENT THROMBOSIS Performed By: #### P T #### [facility] [address] [place] [address] Dr. Sariah Boyle PT Coag (PPP) [Time] 21.2 s Critically high 9.0-11.6 [facility] Comment on above: Performed By: #### P T #### [facility] [address] [place] [address] Dr. Sariah Boyle PROTIMEon 04-07-2022 INR Coag (PPP) [Relative time] 3.37 {INR} Normal [facility] Comment on above: Performed By: #### P T #### [facility] [address] [place] [address] Dr. Sariah Boyle INR GUIDELINES SEE BELOW Normal [facility] Comment on above: Result Comment: NHUNG RED INR: 2.0 - 3.0 CONDITIONS NOT LISTED BELOW 2.5 - 3.5 FOR PROSTHETIC HEART VALVE REPLACEMENT 2.5 - 3.5 RECURRENT THROMBOSIS Performed By: #### P T #### [facility] [address] [place] [address] Dr. Sariah Boyle PT Coag (PPP) [Time] 33.6 s Critically high 9.0-11.6 [facility] Comment on above: Performed By: #### P T #### [facility] [address] [place], [place] [address] Dr. Sariah Boyle Initial Visit (Otolaryngolog y)on [...] melanoma of the scalp History of Present Etynwjn31-wzsw-epx man referred by Dr. 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 Electronically Signed Out By RIGO CHRISTIAN MD/[facility] By the signature on this report, the individual or group listed as making the Final Interpretation/Diagno sis certifies that they have reviewed this case. Diagnostic interpretation performed at [facility]atopath [facility] [id number] [place], [place] [id number], [facility] [address] Clinical History: Previously parietal biopsy. Narrow excisional biopsy today for confirmation of depth. ([place] office). Specimens Submitted As: A: SKIN, OCCIPITAL SCALP Gross Description: Received in formalin is one camara-brown, ellipsoid piece of skin measuring [id number]. The specimen is inked and embedded in toto in four blocks. The tips are in Block A1. dcp/03/25/2022 [facility] [place] [id number] [address] Normal [facility] Comment on above: Performed By: #### D #### Dermatopathology No Panel Informationon 03-23 [facility] Work Phone: PROTIMEon 03-06-2022 INR Coag (PPP) [Relative time] 2.08 {INR} Normal [facility] Comment on above: Performed By: #### P T #### [facility] [address] [place] [address] Dr. Sariah Boyle INR GUIDELINES SEE BELOW Normal [facility] Comment on above: Result Comment: NHUNG RED INR: 2.0 - 3.0 CONDITIONS NOT LISTED BELOW 2.5 - 3.5 FOR PROSTHETIC HEART VALVE REPLACEMENT 2.5 - 3.5 RECURRENT THROMBOSIS Performed By: #### P T #### [facility] [address] [place] [address] [address] Sariah Boyle PT Coag (PPP) [Time] 21.4 s Critically high 9.0-11.6 [facility] Comment on above: Performed By: #### P T #### [facility] [address] [place] [address] [address] Sariah Boyle Dermatopathologyon Dermatopathology Name: VIANEY JACOME Pathologist: RIGO CHRISTIAN MD Date of Procedure: 02/16/2022 Date Received: 02/16/2022 Date Reported 02/21/2022 Submitting Physician: FLORENTINO HERNADEZ MD, Location: [facility] Copy To/Referring/Attendin g: MD GADIEL REEVES FINAL DIAGNOSIS 2 SLIDES, [facility] #[id number] (BX: 02/06/2022) SKIN, OCCIPITAL SCALP, SHAVE BIOPSY: [...] M.D. CANCER SUMMARY REPORT A. 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 are two slides labeled [id number] (BX: 02/06/2022) along with the corresponding pathology report. Slide/Block Description 2 SLIDES, [id number]. Keep Slides: N Slides Returned: N Personal Consult: N Normal [facility] Comment on above: Performed By: #### D #### Dermatopathology PROTIMEon 02-03-2022 INR Coag (PPP) [Relative time] 1.83 {INR} Normal [facility] Comment on above: Performed By: #### P T #### [facility] [address] [place] [address] Dr. Sariah Boyle INR GUIDELINES SEE BELOW Normal [facility] Comment on above: Result Comment: NHUNG RED INR: 2.0 - 3.0 CONDITIONS NOT LISTED BELOW 2.5 - 3.5 FOR PROSTHETIC HEART VALVE REPLACEMENT 2.5 - 3.5 RECURRENT THROMBOSIS Performed By: #### P T #### [facility] [address] [place] [address] Dr. Sariah Boyle PT Coag (PPP) [Time] 19.0 s Critically high 9.0-11.6 [facility] Comment on above: Performed By: #### P T #### [facility] [address] [place] [address] Dr. Sariah Boyle PROTIMEon 01-02-2022 INR Coag (PPP) [Relative time] 2.05 {INR} Normal [facility] Comment on above: Performed By: #### P T #### [facility] [address] [place] [address] Dr. Sariah Boyle INR GUIDELINES SEE BELOW Normal [facility] Comment on above: Result Comment: NHUNG RED INR: 2.0 - 3.0 CONDITIONS NOT LISTED BELOW 2.5 - 3.5 FOR PROSTHETIC HEART VALVE REPLACEMENT 2.5 - 3.5 RECURRENT THROMBOSIS Performed By: #### P T #### [facility] [address] [place] [address] [address] Sariah Boyle PT Coag (PPP) [Time] 21.1 s Critically high 9.0-11.6 [facility] Comment on above: Performed By: #### P T #### [facility] [address] [place] [address] [address] Sariah Boyle Tobacco Screening.on 022 Adult depression screening assessment No [facility] 250 DO Work Phone: Fall risk assessment a) No falls within the last year [facility] 250 DO Work Phone: Tobacco use status [facility] b) No [facility] 250 DO Work Phone: PROTIMEon 12-02-2021 INR Coag (PPP) [Relative time] 2.22 {INR} Normal [facility] Comment on above: Performed By: #### P T #### [facility] [address] [place] [address] Dr. Sariah Boyle INR GUIDELINES SEE BELOW Normal [facility] Comment on above: Result Comment: NHUNG RED INR: 2.0 - 3.0 CONDITIONS NOT LISTED BELOW 2.5 - 3.5 FOR PROSTHETIC HEART VALVE REPLACEMENT 2.5 - 3.5 RECURRENT THROMBOSIS Performed By: #### P T #### [facility] [address] [place] [address] Dr. Sariah Boyle PT Coag (PPP) [Time] 22.8 s Critically high 9.0-11.6 [facility] Comment on above: Performed By: #### P T #### [facility] [address] [place] [address] Dr. Sariah Boyle PROTIMEon 11-18-2021 INR Coag (PPP) [Relative time] 1.95 {INR} Normal [facility] Comment on above: Performed By: #### P T #### [facility] [address] [place] [address] Dr. Sariah Boyle INR GUIDELINES SEE BELOW Normal [facility] Comment on above: Result Comment: NHUNG RED INR: 2.0 - 3.0 CONDITIONS NOT LISTED BELOW 2.5 - 3.5 FOR PROSTHETIC HEART VALVE REPLACEMENT 2.5 - 3.5 RECURRENT THROMBOSIS Performed By: #### P T #### [facility] [address] [place] [address] [address] Sariah Boyle PT Coag (PPP) [Time] 20.2 s Critically high 9.0-11.6 [facility] Comment on above: Performed By: #### P T #### [facility] [address] [place] [address] [address] Sariah Boyle COMPREHENSIVE METABOLIC PANE [place] 08-23-2021 Albumin [Mass/Vol] 4.1 g/dL Normal 3.6-5.1 [facility] Comment on above: Performed By: #### 1 0231, 7600 #### [facility] [place] [address] Clerical Warehouseman: Jose Juan Arriola MD Albumin/Globulin [Mass ratio] 1.6 {ratio} Normal 1.0-2.5 [facility] Comment on above: Performed By: #### 1 0231, 7600 #### [facility] [place] [address] Clerical Warehouseman: Jose Juan Arriola MD ALP [Catalytic activity/Vol] 61 U/L Normal 35-144 [facility] Comment on above: Performed By: #### 1 0231, 7600 #### [facility] [place] [address] Clerical Warehouseman: Jose Juan Arriola MD ALT [Catalytic activity/Vol] 9 U/L Normal 9-46 [facility] Comment on above: Performed By: #### 1 0231, 7600 #### [facility] [place] [address] Clerical Warehouseman: Jose Juan Arriola MD AST [Catalytic activity/Vol] 14 U/L Normal 10-35 [facility] Comment on above: Performed By: #### 1 0231, 7600 #### [facility] of [address], [address] [place] [address] Clerical Warehouseman: Jose Juan Arriola MD Bilirubin [Mass/Vol] 0.6 mg/dL Normal 0.2-1.2 [facility] Comment on above: Performed By: #### 1 023, 7600 #### [facility] [place] [address] Clerical Warehouseman: Jose Juan Arriola MD Calcium [Mass/Vol] 9.1 mg/dL Normal 8.6-10.3 [facility] Comment on above: Performed By: #### 1 023, 0 #### [facility] [place] [address] Clerical Warehouseman: Jose Juan Arriola MD Chloride [Moles/Vol] 109 mmol/L Normal 98-110 [facility] Comment on above: Performed By: #### 1 230, 0 #### [facility] [place] [address] Clerical Warehouseman: Jose Juan Arriola MD CO2 [Moles/Vol] 26 mmol/L Normal 20-32 [facility] Comment on above: Performed By: #### 1 230, 7600 #### [facility] [place] [address] Clerical Warehouseman: Jose Juan Arriola MD Creatinine [Mass/Vol] 2.15 mg/dL High 0.70-1.[address] [facility] Comment on above: Result Comment: For patients >49 years of age, the reference limit for Creatinine is approximately 13% higher for people identified as -[place] Islander. Performed By: #### 1 023, 7600 #### [facility] [place] [address] Clerical Warehouseman: Jose Juan Arriola MD eGFR NON-AFR. BHUTANESE 27 mL/min/1.73m2 Low > OR = 60 [facility] Comment on above: Performed By: #### 1 023, 7600 #### [facility] [address], [address] [place] [address] Clerical Warehouseman: Jose Juan Arriola MD GFR/1.73 sq M.predicted among blacks MDRD (S/P/Bld) [Vol rate/Area] 31 mL/min/{1.73_m2} Low > OR = 60 [facility] Comment on above: Performed By: #### 1 0231, 7600 #### [facility] [address], [address] [place] [address] Clerical Warehouseman: Jose Juan Arriola MD Globulin (S) [Mass/Vol] 2.5 g/dL Normal 1.9-3.7 [facility] Comment on above: Performed By: #### 1 0231, 7600 #### [facility] [place] [address] Clerical Warehouseman: Jose Juan Arriola MD Glucose [Mass/Vol] 93 mg/dL Normal 65-99 [facility] Comment on above: Result Comment: Fasting reference interval Performed By: #### 1 0231, 7600 #### [facility] [address], [address] [place] [address] Clerical Warehouseman: Jose Juan Arriola MD Potassium [Moles/Vol] 4.7 mmol/L Normal 3.5-5.3 [facility] Comment on above: Performed By: #### 1 0231, 7600 #### [facility] [place] [address] Clerical Warehouseman: Jose Juan Arriola MD Protein [Mass/Vol] 6.6 g/dL Normal 6.1-8.1 [facility] Comment on above: Performed By: #### 1 0231, 7600 #### [facility] [place] [address] Clerical Warehouseman: Jose Juan Arriola MD Sodium [Moles/Vol] 142 mmol/L Normal 135-146 [facility] Comment on above: Performed By: #### 1 0231, 7600 #### [facility] [place] [address] Clerical Warehouseman: Jose Juan Arriola MD Urea nitrogen [Mass/Vol] 31 mg/dL High 7-25 [facility] Comment on above: Performed By: #### 1 0231, 7600 #### [facility] [address], [address] [place] [address] Clerical Warehouseman: Jose Juan Arriola MD Urea nitrogen/Creatinine [Mass ratio] 14 mg/mg Normal 6-22 [facility] Comment on above: Performed By: #### 1 0231, 7600 #### [facility] [address], [address] [place] [address] Clerical Warehouseman: Jose Juan Arriola MD LIPID PANEL, [facility] Cholesterol [Mass/Vol] 101 mg/dL Normal <200 [facility] Comment on above: Order Comment: FASTI NG:YES FASTING: YES Performed By: #### 1 0231, 7600 #### [facility] [address], [address] [place] [address] Clerical Warehouseman: Jose Juan Arriola MD Cholesterol in HDL [Mass/Vol] 40 mg/dL Normal > OR = 40 [facility] Comment on above: Order Comment: FASTI NG:YES FASTING: YES Performed By: #### 1 0231, 7600 #### [facility] [place] [address] Clerical Warehouseman: Jose Juan Arriola MD Cholesterol in LDL [...] LDL-C. Phillip FITZGERALD et al. MERYL. 2013;310(19): 6365-4445 (http://education.[employer].[place]/faq/YGZ234) Performed By: #### 1 0231, 7600 #### [facility] [place] [address], [address] [place] [address] Clerical Warehouseman: Jose Juan Arriola MD Cholesterol.total/Chol esterol in HDL [Mass ratio] 2.5 {ratio} Normal <5.0 [facility] Comment on above: Order Comment: FASTI NG:YES FASTING: YES Performed By: #### 1 0231, 7600 #### [facility] [address], [address] [place] [address] Clerical Warehouseman: Jose Juan Arriola MD NON HDL CHOLESTEROL 61 mg/dL (calc) Normal <130 [facility] Comment on above: Order Comment: FASTI NG:YES FASTING: YES Result Comment: For patients with diabetes plus 1 major ASCVD risk factor, treating to a non-HDL-C goal of <100 mg/dL (LDL-C of <70 mg/dL) is considered a therapeutic option. Performed By: #### 1 0231, 7600 #### [facility] [address], [address] [place] [address] Clerical Warehouseman: Jose Juan Arriola MD Triglyceride [Mass/Vol] 127 mg/dL Normal <150 [facility] Comment on above: Order Comment: FASTI NG:YES FASTING: YES Performed By: #### 1 0231, 7600 #### [facility] [place] [address] Clerical Warehouseman: Jose Juan Arriola MD Tobacco Screening.on 021 Fall risk assessment a) No falls within the last year [facility] 250 DO Work Phone: Tobacco use status [facility] b) No -[facility] 250 DO Work Phone: B TYPE NATRIURETIC PEPTIDE ( BNP)on 11-03-2020 B TYPE NATRIURETIC PEPTIDE (BNP) Normal [facility] Comment on above: Result Comment: FROZ EN EDTA PLASMA IS REQUIRED TEST NOT PERFORMED No suitable specimen received. Please review the test requirements at [email or web address] Performed By: #### 9 05, 16067, 36820, 6399, 718, 899, 622, 25563, 30573 #### [facility] of [place] [address] Clerical Warehouseman: Jose Juan Arriola MD CBC (INCLUDES DIFF/PLT)on Basophils (Bld) [#/Vol] 0.071 10*3/uL Normal 0-200 [facility] Comment on above: Performed By: #### 9 05, 97623, 47362, 6399, 718, 899, 622, 37000, 56753 #### [facility] of [place] [address] Clerical Warehouseman: Jose Juan Arriola MD Basophils/100 WBC (Bld) 1.0 % Normal [facility] Comment on above: Performed By: #### 9 05, 69945, 04205, 6399, 718, 899, 622, 31962, 60536 #### [facility] [place] [address] Clerical Warehouseman: Jose Juan Arriola MD Eosinophils (Bld) [#/Vol] 0.099 10*3/uL Normal 15-500 [facility] Comment on above: Performed By: #### 9 05, 07520, 99676, 6399, 718, 899, 622, 26808, 89209 #### [facility] of [place] [address] Clerical Warehouseman: Jose Juan Arriola MD Eosinophils/100 WBC (Bld) 1.4 % Normal [facility] Comment on above: Performed By: #### 9 05, 77057, 03308, 6399, 718, 899, 622, 13068, 98609 #### [facility] of [place] [address] Clerical Warehouseman: Jose Juan Arriola MD Erythrocyte distribution width (RBC) [Ratio] 14.4 % Normal 11.0-15.0 [facility] Comment on above: Performed By: #### 9 05, 15770, 39279, 6399, 718, 899, 622, 79158, 68260 #### [facility] of [place] [address] Clerical Warehouseman: Jose Juan Arriola MD Hematocrit (Bld) [Volume fraction] 42.7 % Normal 38.5-50.0 [facility] Comment on above: Performed By: #### 9 05, 14716, 34639, 6399, 718, 899, 622, 44032, 00499 #### [facility] of [place] [address] Clerical Warehouseman: Jose Juan Arriola MD Hemoglobin (Bld) [Mass/Vol] 13.7 g/dL Normal 13.2-17.1 [facility] Comment on above: Performed By: #### 9 05, 23814, 31338, 6399, 718, 899, 622, 26463, 74837 #### [facility] of [place] [address] Clerical Warehouseman: Jose Juan Arriola MD Lymphocytes (Bld) [#/Vol] 1.512 10*3/uL Normal 850-3900 [facility] Comment on above: Performed By: #### 9 05, 60932, 21524, 6399, 718, 899, 622, 60742, 87781 #### [facility] of [place] [address] Clerical Warehouseman: Jose Juan Arriola MD Lymphocytes/100 WBC (Bld) 21.3 % Normal [facility] Comment on above: Performed By: #### 9 05, 15093, 47985, 6399, 718, 899, 622, 99498, 15454 #### [facility] of [place] [address] Clerical Warehouseman: Jose Juan Arriola MD MCH (RBC) [Entitic mass] 28.5 pg Normal 27.0-33.0 [facility] Comment on above: Performed By: #### 9 05, 87874, 23897, 6399, 718, 899, 622, 98425, 76084 #### [facility] of [address] [place] [address] Clerical Warehouseman: Jose Juan Arriola MD MCHC (RBC) [Mass/Vol] 32.1 g/dL Normal 32.0-36.[address] [facility] Comment on above: Performed By: #### 9 05, 17854, 61891, 6399, 718, 899, 622, 57247, 19023 #### [facility] of [place] [address] Clerical Warehouseman: Jose Juan Arriola MD MCV (RBC) [Entitic vol] 89.0 fL Normal 80.0-100.0 [facility] Comment on above: Performed By: #### 9 05, 61860, 11959, 6399, 718, 899, 622, 53304, 05585 #### [facility] of [place] [address] Clerical Warehouseman: Jose Juan Arriola MD Monocytes (Bld) [#/Vol] 0.738 10*3/uL Normal 200-950 [facility] Comment on above: Performed By: #### 9 05, 99723, 30309, 6399, 718, 899, 622, 92968, 17527 #### [facility] of [place] [address] Clerical Warehouseman: Jose Juan Arriola MD Monocytes/100 WBC (Bld) 10.4 % Normal [facility] Comment on above: Performed By: #### 9 05, 05019, 31251, 6399, 718, 899, 622, 74578, 91923 #### [facility] of [place] [address] Clerical Warehouseman: Jose Juan Arriola MD Neutrophils (Bld) [#/Vol] 4.679 10*3/uL Normal 4815-6474 [facility] Comment on above: Performed By: #### 9 05, 84902, 90586, 6399, 718, 899, 622, 36236, 56224 #### [facility] of [place] [address] Clerical Warehouseman: Jose Juan Arriola MD Neutrophils/100 WBC (Bld) 65.9 % Normal [facility] Comment on above: Performed By: #### 9 05, 50850, 89695, 6399, 718, 899, 622, 99176, 84862 #### [facility] of [place] [address] Clerical Warehouseman: Jose Juan Arriola MD Platelet mean volume (Bld) [Entitic vol] 11.4 fL Normal 7.5-12.5 [facility] Comment on above: Performed By: #### 9 05, 06018, 07487, 6399, 718, 899, 622, 50969, 24607 #### [facility] of [place] [address] Clerical Warehouseman: Jose Juan Arriola MD Platelets (Bld) [#/Vol] 229 10*3/uL Normal 140-400 [facility] Comment on above: Performed By: #### 9 05, 93232, 42064, 6399, 718, 899, 622, 54704, 35277 #### [facility] of [place] [address] Clerical Warehouseman: Jose Juan Arriola MD RBC (Bld) [#/Vol] 4.80 10*6/uL Normal 4.20-5.80 [facility] Comment on above: Performed By: #### 9 05, 98297, 15731, 6399, 718, 899, 622, 63406, 42532 #### [facility] of [place] [address] Clerical Warehouseman: Jose Juan Arriola MD WBC (Bld) [#/Vol] 7.1 10*3/uL Normal 3.8-10.8 [facility] Comment on above: Performed By: #### 9 05, 08812, 05382, 6399, 718, 899, 622, 07523, 99633 #### [facility] of [place] [address] Clerical Warehouseman: Jose Juan Arriola MD [facility] 11-03-2020 Albumin [Mass/Vol] 4.1 g/dL Normal 3.6-5.1 [facility] Comment on above: Performed By: #### 9 05, 82091, 19256, 6399, 718, 899, 622, 93793, 90024 #### [facility] of [place] [address] Clerical Warehouseman: Jose Juan Arriola MD Albumin/Globulin [Mass ratio] 1.7 {ratio} Normal 1.0-2.5 [facility] Comment on above: Performed By: #### 9 05, 60206, 16024, 6399, 718, 899, 622, 47047, 28452 #### [facility] of [place] [address] Clerical Warehouseman: Jose Juan Arriola MD ALP [Catalytic activity/Vol] 62 U/L Normal 35-144 [facility] Comment on above: Performed By: #### 9 05, 22500, 81293, 6399, 718, 899, 622, 35353, 69022 #### [facility] of [place] [address] Clerical Warehouseman: Jose Juan Arriola MD ALT [Catalytic activity/Vol] 9 U/L Normal 9-46 [facility] Comment on above: Performed By: #### 9 05, 71119, 64976, 6399, 718, 899, 622, 23837, 33059 #### [facility] of [place] [address] Clerical Warehouseman: Jose Juan Arriola MD AST [Catalytic activity/Vol] 13 U/L Normal 10-35 [facility] Comment on above: Performed By: #### 9 05, 85439, 42754, 6399, 718, 899, 622, 69127, 87986 #### [facility] of [place] [address] Clerical Warehouseman: Jose Juan Arriola MD Bilirubin [Mass/Vol] 0.7 mg/dL Normal 0.2-1.2 [facility] Comment on above: Performed By: #### 9 05, 91614, 57214, 6399, 718, 899, 622, 89318, 05280 #### [facility] [address], [address] [place] [address] Clerical Warehouseman: Jose Juan Arriola MD Calcium [Mass/Vol] 9.5 mg/dL Normal 8.6-10.3 [facility] Comment on above: Performed By: #### 9 05, 03771, 17768, 6399, 718, 899, 622, 39816, 88262 #### [facility] [place] [address] Clerical Warehouseman: Jose Juan Arriola MD Chloride [Moles/Vol] 109 mmol/L Normal 98-110 [facility] Comment on above: Performed By: #### 9 05, 64378, 89603, 6399, 718, 899, 622, 58976, 30950 #### [facility] [address], [address] [place] [address] Clerical Warehouseman: Jose Juan Arriola MD CO2 [Moles/Vol] 25 mmol/L Normal 20-32 [facility] Comment on above: Performed By: #### 9 05, 30227, 80136, 6399, 718, 899, 622, 66722, 04405 #### [facility] [place] [address] Clerical Warehouseman: Jose Juan Arriola MD Creatinine [Mass/Vol] 1.99 mg/dL High 0.70-1.[address] [facility] Comment on above: Result Comment: For patients >49 years of age, the reference limit for Creatinine is approximately 13% higher for people identified as -[place] Islander. Performed By: #### 9 05, 15960, 93201, 6399, 718, 899, 622, 11115, 71502 #### [facility] [place] [address] Clerical Warehouseman: Jose Juan Arriola MD eGFR NON-AFR. BHUTANESE 30 mL/min/1.73m2 Low > OR = 60 [facility] Comment on above: Performed By: #### 9 05, 43219, 38801, 6399, 718, 899, 622, 08796, 91544 #### [facility] [place] [address] Clerical Warehouseman: Jose Juan Arriola MD GFR/1.73 sq M.predicted among blacks MDRD (S/P/Bld) [Vol rate/Area] 34 mL/min/{1.73_m2} Low > OR = 60 [facility] Comment on above: Performed By: #### 9 05, 87843, 37806, 6399, 718, 899, 622, 56613, 05440 #### [facility] [place] [address] Clerical Warehouseman: Jose Juan Arriola MD Globulin (S) [Mass/Vol] 2.4 g/dL Normal 1.9-3.7 [facility] Comment on above: Performed By: #### 9 05, 40369, 97123, 6399, 718, 899, 622, 99309, 51061 #### [facility] [place] [address] Clerical Warehouseman: Jose Juan Arriola MD Glucose [Mass/Vol] 144 mg/dL High 65-99 [facility] Comment on above: Result Comment: Fasting reference interval For someone without known diabetes, a glucose value >125 mg/dL indicates that they may have diabetes and this should be confirmed with a follow-up test. Performed By: #### 9 05, 18450, 66404, 6399, 718, 899, 622, 36557, 01709 #### [facility] [place] [address] Clerical Warehouseman: Jose Juan Arriola MD Potassium [Moles/Vol] 4.9 mmol/L Normal 3.5-5.3 [facility] Comment on above: Performed By: #### 9 05, 68305, 39050, 6399, 718, 899, 622, 35957, 78407 #### [facility] of [place] [address] Clerical Warehouseman: Jose Juan Arriola MD Protein [Mass/Vol] 6.5 g/dL Normal 6.1-8.1 [facility] Comment on above: Performed By: #### 9 05, 11107, 63648, 6399, 718, 899, 622, 99309, 40218 #### [facility] [place] [address] Clerical Warehouseman: Jose Juan Arriola MD Sodium [Moles/Vol] 141 mmol/L Normal 135-146 [facility] Comment on above: Performed By: #### 9 05, 88157, 87692, 6399, 718, 899, 622, 49900, 13760 #### [facility] [place] [address] Clerical Warehouseman: Jose Juan Arriola MD Urea nitrogen [Mass/Vol] 31 mg/dL High 7-25 [facility] Comment on above: Performed By: #### 9 05, 85100, 68387, 6399, 718, 899, 622, 29891, 58920 #### [facility] [place] [address] Clerical Warehouseman: Jose Juan Arriola MD Urea nitrogen/Creatinine [Mass ratio] 16 mg/mg Normal 6-22 [facility] Comment on above: Performed By: #### 9 05, 72916, 05312, 6399, 718, 899, 622, 61693, 25256 #### [facility] [place] [address] Clerical Warehouseman: Jose Juan Arriola MD MAGNESIUMon 11-03-2020 Magnesium [Mass/Vol] 2.1 mg/dL Normal 1.5-2.5 [facility] Comment on above: Performed By: #### 9 05, 06461, 02815, 6399, 718, 899, 622, 75824, 91988 #### [facility] [place] [address] Clerical Warehouseman: Jose Juan Arriola MD PHOSPHATE ( PHOSPHORUS)on 11-03-2020 Phosphate [Mass/Vol] 2.9 mg/dL Normal 2.1-4.3 [facility] Comment on above: Performed By: #### 9 05, 93857, 19191, 6399, 718, 899, 622, 15203, 06845 #### [facility] [place] [address] Clerical Warehouseman: Jose Juan Arriola MD PTH, INTACT WITHOUT [...] Normal High Performed By: #### 9 05, 20942, 01697, 6399, 718, 899, 622, 05499, 48183 #### [facility] [place] [address] Clerical Warehouseman: Jose Juan Arriola MD TSHon 11-03-2020 TSH Qn 2.08 m[IU]/L Normal 0.40-4.50 [facility] Comment on above: Performed By: #### 9 05, 60363, 15981, 6399, 718, 899, 622, 13788, 14355 #### [facility] [place] [address] Clerical Warehouseman: Jose Juan Arriola MD URIC ACIDon 11-03-2020 Urate [Mass/Vol] 8.5 mg/dL High 4.0-8.0 [facility] Comment on above: Result Comment: Ther apeutic target for gout patients: <6.0 mg/dL Performed By: #### 9 05, 08485, 43597, 6399, 718, 899, 622, 78533, 85802 #### [facility] [address], [address] [place] [address] Clerical Warehouseman: Jose Juan Arriola MD VITAMIN D,25-OH,TOTAL,IAon 0 [...] D, (D2,D3), LC/MS/MS is recommended: order code [id number] (patients >2yrs). See Note 1 Note 1 For additional information, please refer to [email or web address]/EQR231 (This link is being provided for informational/ educational purposes only.) Performed By: #### 1 0231, 7600 #### [facility] [address], [address] [place] [address] Clerical Warehouseman: Jose Juan Arriola MD [facility] CARDIAC STRESS/REST INJE CTIONon 08-07-2019 [facility] CARDIAC STRESS/REST INJECTION Patient Name: RIO JACOME STUDY: MYOCARDIAL PERFUSION STRESS TEST WITH LEXISCAN Performing facility: [facility], [address] [place] [address], [address] [address] [facility] Provider: Melanie Langston MD, FACC PCP: Dr. Alden Morin Supervising provider: Edwige Jacobsen MD, FACC INDICATION: Arteriosclerotic cardiovascular disease Pre-operative risk assessment for Gallbladder scheduled at [facility] on TBA. HISTORY: Gender: M; Age: 83 y/o ; Height: 175.26 cm; Weight: 74.0661065 kg. High Cholesterol; CAD; HTN; ICD V. Tach., ICD Denies smoking. COMPARISON: Previous nuclear testing completed at [facility]. ACCESSION NUMBER(S): [id number]; [id number]; [id number] ORDERING CLINICIAN: RENETTA LANGSTON TECHNIQUE: ONE DAY [...] changes. Electronically signed by: EDWIGE JACOBSEN MD [facility] Reminderson 03-14-2019 Reminders - From: Qing Villegas MA To: EU - Clinical; Sent: 03/04/2019 11:29:06 EDT Show up: 03/14/2019 11:29:00 EDT Subject: Ambulatory Reminder Due Date/Time: 03/18/2019 11:29:00 EDT Reminder/Recall FISH/Cytology done 03/04/19 Negative. Normal [facility] Vital Signs Date Time Vital Sign Value Performing Clinician Facility 11-05-2023 08:57-0400 Body height 180.3 cm Renetta Langston MD Work Phone: [facility] 11-05-2023 08:57-0400 Body mass index (BMI) [Ratio] 21.9 kg/m2 Renetta Langston MD Work Phone: [facility] 11-05-2023 08:57-0400 Body weight 71.22 kg Renetta Langston MD Work Phone: [facility] 11-05-2023 08:57-0400 Diastolic blood pressure 90 mm[Hg] Renetta Langston MD Work Phone: [facility] 11-05-2023 08:57-0400 Heart rate 82 /min Renetta Langston MD Work Phone: [facility] 11-05-2023 08:57-0400 Systolic blood pressure 130 mm[Hg] Renetta Langston MD Work Phone: [facility] 08-06-2023 10:10-0400 Body height 177.8 cm Phil Morin DO Work Phone: [facility] 08-06-2023 10:10-0400 Body mass index (BMI) [Ratio] 23.69 kg/m2 Phil Ronnelldestinyng DO Work Phone: [facility] 08-06-2023 10:10-0400 Body temperature 97.81 [degF] Phil Myersng DO Work Phone: [facility] 08-06-2023 10:10-0400 Body weight 74.89 kg Phil Morin DO Work Phone: [facility] 08-06-2023 10:10-0400 Diastolic blood pressure 60 mm[Hg] Phil Furlong DO [facility] 08-06-2023 10:10-0400 Heart rate 93 /min Phil Furlong DO Work Phone: [facility] [employer] 08-06-2023 10:10-0400 Respiratory rate 18 /min Phil Furlong DO Work Phone: [facility] [employer] 08-06-2023 10:10-0400 SaO2% (BldA) [Mass fraction] 97 % Phil Furlong DO [facility] 08-06-2023 10:10-0400 Systolic blood pressure 106 mm[Hg] Phil Furlong DO Work Phone: [facility] [employer] 05-29-2023 16:13-0500 Body height 177.8 cm Phil Furlong DO Work Phone: [facility] [employer] 05-29-2023 16:13-0500 Body mass index (BMI) [Ratio] 24.12 kg/m2 Phil Furlong DO [facility] 05-29-2023 16:13-0500 Body temperature 97.81 [degF] Phil Furlong DO [facility] 05-29-2023 16:13-0500 Body weight 76.25 kg Phil Furlong DO Work Phone: [facility] [employer] 05-29-2023 16:13-0500 Diastolic blood pressure 68 mm[Hg] Phil Furlong DO [facility] 05-29-2023 16:13-0500 Heart rate 104 /min Phil Furlong DO Work Phone: [facility] [employer] [facility] 05-29-2023 16:13-0500 SaO2% (BldA) [Mass fraction] 99 % Phil Furlong DO Work Phone: [facility] 05-29-2023 16:13-0500 Systolic blood pressure 128 mm[Hg] Phil Furlong DO Work Phone: [facility] 01-12-2023 14:17-0400 Body height 175.26 cm Phil G Furlong Work Phone: [facility] DO Work Phone: 01-12-2023 14:17-0400 Body mass index (BMI) [Ratio] 23.78 kg/m2 Phil G Furlong Work Phone: [facility] DO Work Phone: 01-12-2023 14:17-0400 Body surface area Derived from formula 1.88 m2 Phil G Furlong Work Phone: [facility] 250 DO Work Phone: 01-12-2023 14:17-0400 Body weight 73.03 kg Phil G Furlong Work Phone: [facility] 250 DO Work Phone: 01-12-2023 14:17-0400 Diastolic blood pressure 78 mm[Hg] Phil G Furlong Work Phone: [facility] 250 DO Work Phone: 01-12-2023 14:17-0400 Heart rate 72 /min Phil G Furlong Work Phone: [facility] 250 DO Work Phone: 01-12-2023 14:17-0400 Systolic blood pressure 122 mm[Hg] Phil G Furlong Work Phone: [facility] DO Work Phone: 07-14-2022 15:41-0500 Body height 175.26 cm Phil G Furlong Work Phone: [facility] [place] 250 DO Work Phone: 07-14-2022 15:41-0500 Body mass index (BMI) [Ratio] 23.92 kg/m2 Phil Reynagalong Work Phone: [facility] 250 DO Work Phone: 07-14-2022 15:41-0500 Body surface area Derived from formula 1.89 m2 Phil Reynagalong Work Phone: [facility] [place] 250 DO Work Phone: 07-14-2022 15:41-0500 Body weight 73.48 kg Phil Reynagalong Work Phone: [facility] [place] 250 DO Work Phone: 07-14-2022 15:41-0500 Diastolic blood pressure 80 mm[Hg] Phil Reynagalong Work Phone: [facility] [place] 250 DO Work Phone: 07-14-2022 15:41-0500 Heart rate 80 /min Phil Reynagalong Work Phone: [facility] [place] 250 DO Work Phone: 07-14-2022 15:41-0500 Systolic blood pressure 130 mm[Hg] Phil Reynagalong Work Phone: [facility] [employer] 250 DO Work Phone: 06-15-2022 12:40-0500 Diastolic blood pressure 78 mm[Hg] Florentino Hernadez Dept. of Dermatology 06-15-2022 12:40-0500 Systolic blood pressure 167 mm[Hg] Florentino Hernadez Dept[facility] Dermatology 06-06-2022 08:07-0500 Diastolic blood pressure 85 mm[Hg] Florentino Hernadez Dept[facility] Dermatology 06-06-2022 08:07-0500 Systolic blood pressure 150 mm[Hg] Florentino Hernadez Dept[facility] of Dermatology 04-03-2022 14:27-0500 Body height 175.26 cm Phil G Furlong Work Phone: [facility] [place] Work Phone: 04-03-2022 14:27-0500 Body mass index (BMI) [Ratio] 23.92 kg/m2 Phil G Furlong Work Phone: [facility]mle[facility] [place] Work Phone: 04-03-2022 14:27-0500 Body surface area Derived from formula 1.89 m2 Phil G Furlong Work Phone: [facility] [place] Work Phone: 04-03-2022 14:27-0500 Body weight 73.48 kg Philgirish Reynagalong Work Phone: [facility]bmyttmfryfkhp[facility] [place] Work Phone: 03-23-2022 09:29-0400 Diastolic blood pressure 89 mm[Hg] Karlie Craig Dept. of Dermatology 03-23-2022 09:29-0400 Systolic blood pressure 160 mm[Hg] Karlie Craig Dept[facility] of Dermatology 03-23-2022 08:29-0400 Diastolic blood pressure 89 mm[Hg] Florentino Hernadez Dept. of Dermatology 03-23-2022 08:29-0400 Systolic blood pressure 160 mm[Hg] Florentino Hernadez Dept. of Dermatology 12-13-2021 08:48-0400 Body height 175.26 cm Phil [facility]agalong [facility] Work Phone: 12-13-2021 08:48-0400 Body mass index (BMI) [Ratio] 23.63 kg/m2 Phil G Furlong Work Phone: [facility] [place] 250 DO Work Phone: 12-13-2021 08:48-0400 Body surface area Derived from formula 1.88 m2 Phil G Furlong Work Phone: [facility] [place] 250 DO Work Phone: 12-13-2021 08:48-0400 Body weight 72.58 kg Phil G Furlong Work Phone: [facility] [place] 250 DO Work Phone: 12-13-2021 08:48-0400 Diastolic blood pressure 80 mm[Hg] Phil G Furlong Work Phone: [facility] [place] 250 DO Work Phone: 12-13-2021 08:48-0400 Heart rate 80 /min Phil G Furlong Work Phone: [facility] [place] 250 DO Work Phone: 12-13-2021 08:48-0400 Systolic blood pressure 128 mm[Hg] Phil G Furlong Work Phone: [facility] [place] 250 DO Work Phone: 05-02-2021 08:27-0500 Body height 175.26 cm Phil G Furlong Work Phone: [facility] [place] 250 DO Work Phone: 05-02-2021 08:27-0500 Body mass index (BMI) [Ratio] 24.37 kg/m2 Phil G Furlong Work Phone: [facility] [place] 250 DO Work Phone: 05-02-2021 08:27-0500 Body surface area Derived from formula 1.9 m2 Phil Reynagalong Work Phone: [facility] 250 DO Work Phone: 05-02-2021 08:27-0500 Body weight 74.84 kg Phil Reynagalong Work Phone: [facility] 250 DO Work Phone: 05-02-2021 08:27-0500 Diastolic blood pressure 76 mm[Hg] Phil Reynagalong Work Phone: [facility] 250 DO Work Phone: 05-02-2021 08:27-0500 Heart rate 81 /min Phil Reynagalong Work Phone: [facility] 250 DO Work Phone: 05-02-2021 08:27-0500 Systolic blood pressure 137 mm[Hg] Phil Reynagalong Work Phone: [facility] [place] 250 DO Work Phone: 1934 23:00-0500 >na< Karlie Craig Dept. of Dermato logy Encounters Encounter Date Encounter Type Care Provider Facility Start: 12-27-2023 End: 12-27-2023 Patient encounter procedure DO Phil Furlong Work Phone: [facility] Start: 12-27-2023 End: 12-27-2023 ambulatory DO Phil Furlong Work Phone: [facility] Work Phone: Start: 11-05-2023 End: 11-05-2023 Office outpatient visit 25 minutes Renetta Langston MD Work Phone: [facility] Comment on above: Arteriosclerotic car diovascular disease (ASCVD) (Primary Dx); Essential hypertension; Mixed hyperlipidemia; Ventricular tachycardia (Multi); ICD (implantable cardioverter-defibrillator) in place; Dilated cardiomyopathy (Multi); Ischemic cardiomyopathy Start: 11-05-2023 End: 11-05-2023 ambulatory [facility] Ambulatory Start: 09-27-2023 End: 09-27-2023 Patient encounter procedure DO Phil Morin Work Phone: [facility] Start: 09-27-2023 End: 09-27-2023 ambulatory DO Phil Morin Work Phone: [facility] Work Phone: Start: 08-23-2023 Orders Only Phil pool DO Work Phone: [facility] Start: 08-09-2023 Orders Only Phil pool DO Work Phone: [facility] Comment on above: Type 2 diabetes gamaliel itus without complication, without long- term current use of insulin ([facility]) (Primary Dx); Hypertensive 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 ([facility]) Start: 08-06-2023 End: 08-07-2023 ambulatory [facility] Start: 08-06-2023 End: 08-06-2023 ambulatory [facility] Start: 08-06-2023 End: 08-06-2023 Office outpatient visit 25 minutes Phil Morin DO Work Phone: [facility] Comment on above: Hypertensive heart a nd renal disease with (congestive) heart failure ([facility]) (Primary Dx); Hyperlipidemia, unspecified hyperlipidemia type; Stage 4 chronic kidney disease (CMS-HCC); Type 2 diabetes mellitus without complication, without long-term current use of insulin (CMS-HCC); Hyperparathyroidism (CMS-HCC); Malignant melanoma of scalp or neck ([facility]); Longstanding persistent atrial fibrillation (CMS-HCC); Paroxysmal atrial fibrillation ([facility]); Microalbuminuric diabetic nephropathy ([facility]) Start: 07-18-2023 Orders Only Phil Myers ng DO [facility] Comment on above: Longstanding persist ent atrial fibrillation ([facility]) (Primary Dx) Start: 06-28-2023 End: 06-28-2023 Patient encounter procedure DO Phil Furlong Work Phone: [facility] Start: 06-28-2023 End: 06-28-2023 ambulatory DO Phil Furlong Work Phone: [facility] Work Phone: Start: 05-29-2023 End: 05-29-2023 ambulatory PHILGIRISH MYERSNG [facility] Start: 05-29-2023 End: 05-29-2023 Office outpatient visit 25 minutes Philgirish Reynagalong DO Work Phone: [facility] Comment on above: Paroxysmal atrial fi brillation ([facility]) (Primary Dx); Hypertensive 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 ([facility]); Essential hypertension; Hypothyroidism, unspecified type; Type 2 diabetes mellitus without complication, without long-term current use of insulin ([facility]); Arteriosclerotic vascular disease Start: 03-20-2023 End: 03-20-2023 Patient encounter procedure DO Phil Furlong Work Phone: [facility] Start: 03-20-2023 End: 03-20-2023 ambulatory DO Phil Furlong Work Phone: [facility] Work Phone: Start: 01-12-2023 Office outpatient vi sit 25 minutes Phil Martínez Furlong Work Phone: [facility] 250 DO Work Phone: Start: 01-12-2023 Patient encounter procedure De nnponce Reynagalong Work Phone: [facility] DO Work Phone: Start: 01-12-[address] Renetta Langston II Facility: Start: 12-04-[address] Phil Morin Facility:90 Start: 10-17-2022 End: 10-18-[address] JARON DAVALOS Facility:H1 Start: 09-15-2022 End: 09-16-[address] JARON DAVALOS Facility:H1 Start: 08-28-[address] Phil Morin Facility:90 Start: 08-28-2022 End: 08-28-2022 ambulatory DO Phil Morin Work Phone: [facility] Work Phone: Start: 08-28-2022 End: 08-28-2022 Patient encounter procedure DO Phil Morin Work Phone: [facility] Start: 08-15-2022 End: 08-16-[address] JARON DAVALOS Facility:H1 Start: 07-18-2022 End: 07-19-[address] JARON DAVALOS Facility:H1 Start: 07-14-2022 Office outpatient vi sit 25 minutes Phil Morin Work Phone: [facility] 250 DO Work Phone: Start: 07-14-[address] Phil Morin Facility: Start: 07-04-2022 End: 07-05-[address] JARON DAVALOS Facility:H1 Start: 07-03-2022 Karlie Craig Dept. of D ermatology Start: 06-16-2022 Gadiel Estevez Dept. of Dermatology Start: 06-16-2022 Telephone encounter Phil duron Work Phone: [facility] 250 DO Work Phone: Start: 06-15-2022 Florentino Hernadez Dept. of Dermatology Start: 06-15-[address] Phil Morin Facility:[id number] Start: 06-15-[address] Phil Morin Facility:[id number] Start: 06-09-2022 Rx Renewal Phil Myers ng Work Phone: [facility] 250 DO Work Phone: Start: 06-07-2022 End: 06-08-[address] PHIL MORIN Facility:H1 Start: 06-07-2022 Florentino Hernadez Dept. of Dermatology Start: 06-06-2022 ambulatory Florentino Hernadez Facility: [id number] Start: 06-06-2022 ambulatory Florentino Hernadez Facility: 9522 Start: 05-17-[address] Phil Morin Facility:[id number] Start: 05-17-2022 End: 05-17-2022 ambulatory DO Philgirish Myersng Work Phone: [facility] Work Phone: Start: 05-17-2022 End: 05-17-2022 Patient encounter procedure DO Phil Myersng Work Phone: [facility] Start: 05-08-2022 End: 05-09-[address] PHIL MORIN Facility:H1 Start: 05-01-2022 Rx Renewal Phil Myers ng [facility] Work Phone: Start: 04-07-2022 End: 04-08-[address] PHIL MORIN Facility:H1 Start: 04-04-2022 Karlie Craig Dept. of D ermatology Start: 04-03-2022 Office outpatient ne w 45 minutes Phil Morin Work Phone: [facility] Work Phone: Start: 04-03-2022 Patient encounter procedure De mindi Martínez Reynagadestinyyrn Work Phone: [facility] Work Phone: Start: 04-03-[address] Ketan Iyer Facility:[id number] Start: 03-23-2022 Florentino Hernadez Dept. of Dermatology Start: 03-23-2022 ambulatory Florentino Hernadez Facility: [id number] Start: 03-23-2022 ambulatory Florentino Hernadez Facility: 9522 Start: 03-06-2022 End: 03-07-[address] PHIL MORIN Facility:H1 Start: 02-28-2022 Karlie Craig Dept. of D ermatology Start: 02-16-2022 ambulatory Florentino Hernadez Facility: 9342 Start: 02-15-[address] Phil reddy Ronnelllong Facility:9090 Start: 02-15-2022 End: 02-15-2022 ambulatory DO Phil Morin Work Phone: [facility] Work Phone: Start: 02-15-2022 End: 02-15-2022 Patient encounter procedure DO Phil Morin Work Phone: [facility] Start: 02-03-2022 End: 02-04-[address] PHIL MORIN Facility:H1 Start: 01-02-2022 End: 01-03-[address] PHIL MORIN Facility:H1 Start: 12-13-2021 Office outpatient vi sit 25 minutes Phil Morin Work Phone: [facility] 250 DO Work Phone: Start: 12-02-2021 End: 12-16-[address] PHIL MORIN Facility:H1 Start: 11-18-2021 End: 11-19-[address] PHIL MORIN Facility: Start: 05-02-2021 Office outpatient vi sit 25 minutes Phil Soliz Ronnelldestinyyrn Work Phone: [facility] 250 DO Work Phone: Procedures Date Procedure Procedure Detail Performing Clinician Start: 08-06-2023 Adult depression scr eening assessment Phil Morin DO Work Phone: Start: 05-29-2023 Adult depression scr eening assessment Phil Morin DO Work Phone: Start: 06-15-2022 Excision malignant l esion s/n/h/f/g 2.1-3.0 cm Florentino Hernadez Start: 06-06-2022 Excision malignant: Scalp/Neck/Hands/Feet/Genit adam - 4.0cm [id number] Florentino Hernadez Start: 06-06-2022 Excision malignant: Scalp/Neck/Hands/Feet/Genit adam - 4.0cm [id number] Florentino Hernadez Start: 03-23-2022 End: 03-23-2022 Exc [...] Td Vaccines (2 - Td or Tdap) [facility] [employer] Start: 08-11-2027 DTaP/Tdap/Td Vaccines (2 - Td or Tdap) DTaP/Tdap/Td Vaccines (2 - Td or Tdap) [facility] Start: 08-05-2024 Administration of varicella zoster vaccine Zoster (Shingles) Vaccine (1 of 2) [facility] Comment on above: Postponed from 09/25/2015 (Patient Refus ed) Start: 08-05-2024 Adult BMI Screening Adult BMI Screening [facility] Start: 08-05-2024 Depression Screening Depression Screening [facility] Start: 08-05-2024 Tobacco Screening Tobacco Screening [facility] Start: 08-04-2024 End: 08-04-2024 Patient encounter procedure 08/04/2024 9:30 AM EDT Office Visit [facility] [address] [facility] [address] [place] [id number] Roslyn Mckenzie MD [address] [facility] [place] [address] [facility] Start: 05-29-2024 Adult BMI Screening Adult BMI Screening [facility] Start: 05-29-2024 Depression Screening Depression Screening [facility] Start: 05-29-2024 Fall Risk Screening Fall Risk Screening [facility] Start: 05-29-2024 Tobacco Screening Tobacco Screening [facility] Start: 02-06-2024 End: 02-06-2024 Patient encounter procedure 02/06/2024 9:00 AM EDT [facility] [address] [place] [address] Phil Morin, DO [address], [facility] [place] [address] [facility] Start: 01-20-2024 Influenza vaccination Influenza Vaccine [facility] Start: 10-16-2023 FUV, Provider: Renetta Langston, Status: Pen, Time: 9:00 AM FUV, Provider: Renetta Langston, Status: Pen, Time: 9:00 AM [facility] 250 DO Work Phone: Start: 08-06-2023 End: 08-06-2023 Patient encounter procedure 08/06/2023 10:10 AM EDT Office Visit [facility] [address] [place] [address] Phil Morin, DO [address], [place] [address] [facility] Start: 07-30-2023 End: 07-30-2023 Patient encounter procedure 07/30/2023 10:20 AM EDT [facility] [address] [place] [address] RonnellPhil queen, DO [address], [place] [address] [facility] Start: 01-19-2023 COVID-19 Vaccine ( season) COVID-19 Vaccine ( season) [facility] Start: 01-12-2023 FUV, Provider: Renetta Langston, Status: Pen, Time: 2:10 PM FUV, Provider: Renetta Langston, Status: Pen, Time: 2:10 PM [facility] 250 DO Work Phone: Start: 07-14-2022 FUV, Provider: Renetta Langston, Status: Pen, Time: 3:10 PM FUV, Provider: Renetta Langston, Status: Pen, Time: 3:10 PM [facility]Fl[facility] [place] Work Phone: Start: 06-27-2022 FUV, Provider: Edwige Jacobsen, Status: Pen, Time: 9:10 AM FUV, Provider: Edwige Jacobsen, Status: Pen, Time: 9:10 AM [facility] Work Phone: Start: 12-13-2021 FUV, Provider: Renetta Langston, Status: Pen, Time: 8:50 AM FUV, Provider: Renetta Langston, Status: Pen, Time: 8:50 AM [facility] 250 DO Work Phone: Start: 06-03-2016 Creatinine measurement Creatinine Level [facility] Start: 06-03-2016 Potassium measurement Potassium Level [facility] Start: 09-25-2015 Administration of varicella zoster vaccine Zoster (Shingles) Vaccine (1 of 2) [facility] Start: 09-25-2015 Zoster Vaccines (2 of 3) Zoster Vaccines (2 of 3) [facility] Start: 1994 RSV patients and/or patients aged 60+ years (1 - 1-dose 60+ series) RSV patients and/or patients aged 60+ years (1 - 1-dose 60+ series) [facility] Start: 1952 Diabetes mellitus screening Diabetes Screening [facility] Start: 02-13-1935 Examination of skin Derm Melanoma Skin Check [facility] Start: 1934 Echocardiography Echocardiogram [facility] Start: 1934 Lipid panel Lipid Panel [facility] Start: 1934 Medicare [facility] Start: 1934 Screening for osteoporosis Bone Density Scan [facility] End: 05-29-2024 Comprehensive metabolic 2000 panel - Serum or Plasma Comprehensive metabolic panel Lab Routine Hypertensive 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 ([facility]) 1 Occurrences starting 05/29/2023 until 05/29/2024 [employer] Comment on above: 1 Occurrences starting 05/29/2023 until 05/29/2024 End: 05-29-2024 Hemoglobin A1c/Hemoglobin.total in Blood Hemoglobin A1c Lab Routine Type 2 diabetes mellitus without complication, without long-term current use of insulin ([facility]) 1 Occurrences starting 05/29/2023 until 05/29/2024 [employer] Comment on above: 1 Occurrences starting 05/29/2023 until 05/29/2024 End: 05-29-2024 Lipid panel Lipid panel Lab Routine Arteriosclerotic vascular disease 1 Occurrences starting 05/29/2023 until 05/29/2024 [facility] Comment on above: 1 Occurrences starting 05/29/2023 until 05/29/2024 End: 05-29-2024 Protime & INR Protime & INR Lab Routine Paroxysmal atrial fibrillation ([facility]) 1 Occurrences starting 05/29/2023 until 05/29/2024 [facility] Work Phone: Comment on above: 1 Occurrences starting 05/29/2023 until 05/29/2024 End: 05-29-2024 Thyrotropin [Units/volume] in Serum or Plasma TSH Lab Routine Hypothyroidism, unspecified type 1 Occurrences starting 05/29/2023 until 05/29/2024 [facility] Comment on above: 1 Occurrences starting 05/29/2023 until 05/29/2024 Immunizations Immunization Date Immunization Notes Care Provider [facility] 03-30-2023 Influenza, High-dose , Quadrivalent Philgirish Myersng DO Work Phone: [facility] 03-30-2023 influenza virus vacc ine, unspecified formulation Phil Myersng DO Work Phone: [facility] 02-16-2022 Fluzone High-Dose Quadrivalent 0.7 ML Intramuscular Suspension Prefilled Syringe Phil Morin Work Phone: [facility] [employer] DO Work Phone: 01-28-2021 Fluad Quadrivalent 0 .5 ML Intramuscular Prefilled Syringe Phil Morin Work Phone: [facility] 250 DO Work Phone: 07-14-2020 Pfizer-BioNTech COVI D-19 Vacc 30 MCG/0.3ML Intramuscular Suspension Phil Morin Work Phone: [facility] 250 DO Work Phone: 07-01-2020 Pfizer-BioNTech COVI D-19 Vacc 30 MCG/0.3ML Intramuscular Suspension Phil Morin Work Phone: [facility] 06-16-2020 COVID-19, mRNA, LNP- S, PF, 30mcg/0.3mL Dose Phil Reynagayrn DO Work Phone: [facility] 06-11-2020 RF [employer] COVI D-19 Vacc 30 MCG/0.3ML [facility]amuscular Suspension [facility] Work Phone: [place] [address] DO Work Phone: 04-05-2020 pneumococcal polysaccharide vaccine, 23 valent [facility] Work Phone: [place] [address] DO Work Phone: 02-23-2020 Fluad Quadrivalent 0 .5 ML Intramuscular Prefilled Syringe [facility] Work Phone: [place] [address] DO Work Phone: 02-19-2020 influenza, seasonal, injectable [facility] Work Phone: [place] [address] DO Work Phone: 07-20-2019 pneumococcal conjuga te vaccine, 13 valent [facility] Work Phone: [place] [address] DO Work Phone: 03-12-2019 pneumococcal conjuga te vaccine, 13 valent Phil Soliz [place] Work Phone: [place] [address] DO Work Phone: 03-12-2019 Seasonal trivalent influenza vaccine, adjuvanted, preservative free Phil Soliz [place] Work Phone: [place] [address] DO Work Phone: 02-18-2019 influenza virus vacc ine, unspecified formulation [facility] Work Phone: [place] [address] DO Work Phone: 03-04-2018 influenza virus vacc ine, unspecified formulation Phil Reynagalong Work Phone: [facility] [employer] DO Work Phone: 08-10-2017 tetanus toxoid, redu edwin diphtheria toxoid, and acellular pertussis vaccine, adsorbed Phil Soliz [place] Work Phone: [place] [address] DO Work Phone: 03-21-2017 influenza virus vacc ine, unspecified formulation Phil Reynagalong Work Phone: [place] [address] DO Work Phone: 03-13-2017 influenza, seasonal, injectable Phil Soliz [place] Work Phone: [place] [address] DO Work Phone: 02-21-2016 influenza, seasonal, injectable, preservative free Phil Reynagalong Work Phone: [place] [address] DO Work Phone: 02-19-2016 influenza virus vacc ine, unspecified formulation Phil Reynagalong Work Phone: [place] [address] DO Work Phone: 07-31-2015 zoster vaccine, live Phil Reynagalong Work Phone: [place] [address] DO Work Phone: 07-31-2015 zoster vaccine, unspecified formulation Phil Ronnelllong DO Work Phone: [facility] 02-18-2015 influenza virus vacc ine, unspecified formulation Phil G [place] Work Phone: [place] [address] DO Work Phone: 02-17-2015 influenza, seasonal, injectable, preservative free Phil Furlong DO Work Phone: [facility] 05-11-2014 pneumococcal polysaccharide vaccine, 23 valent Phil G [place]long Work Phone: [facility] 250 DO Work Phone: 02-18-2014 influenza virus vacc ine, unspecified formulation Phil Soliz [place] Work Phone: [place] [address] DO Work Phone: 04-03-2013 pneumococcal conjuga te vaccine, 13 valent Phil Soliz [place] Work Phone: [place] [address] DO Work Phone: 02-18-2013 influenza virus vacc ine, unspecified formulation Phil Soliz [place] Work Phone: [place] [address] DO Work Phone: 02-18-2013 pneumococcal polysaccharide vaccine, 23 valent Phil G [place] Work Phone: [place] [address] DO Work Phone: 12-20-2011 influenza virus vacc ine, unspecified formulation Phil Soliz [place] Work Phone: [place] [address] DO Work Phone: 05-21-2010 influenza virus vacc ine, unspecified formulation Phil Soliz [place] Work Phone: [place] [address] DO Work Phone: 05-21-2009 influenza virus vacc ine, unspecified formulation Phil G Furlong Work Phone: [facility] 250 DO Work Phone: 05-21-2008 influenza virus vacc ine, unspecified formulation Phil G Furlong Work Phone: [facility] 250 DO Work Phone: 05-21-2007 pneumococcal polysaccharide vaccine, 23 valent Phil G Furlong Work Phone: [facility] 250 DO Work Phone: 03-28-2002 pneumococcal polysaccharide vaccine, 23 valent Phil Myersng [facility] Phone: [facility] DO Work Phone: 03-21-2002 pneumococcal polysaccharide vaccine, 23 valent Phil Morin DO Work Phone: [facility] 1934 pneumococcal conjuga te vaccine, 7 valent Karlie Craig [facility]atology Payers Date Payer Category Payer Self-pay [id number] 2022 Medicare [id number] 1959 Private Health Insurance [id number] 1959 Private Health Insurance [id number] 1934 Unknown [id number] 2..840.1.832270.3.579.2.593 1934 Unknown [id number] .840.1.780135.3.579.2.593 1934 Unknown [id number] 2..840.1.049359.3.579.2.593 1934 Unknown [id number] 2.16.840.1.612118.3.579.2.593 1934 Unknown [id number] 2.16.840.1.277410.3.579.2.593 1934 Unknown [id number] 2.16.840.1.709837.3.579.2.593 1934 Unknown [id number] 2.16.840.1.568092.3.579.2.593 1934 Unknown [id number] 2.16.840.1.235374.3.579.2.593 1934 Unknown [id number] 2.16.840.1.953899.3.579.2.593 1934 Unknown [id number] 2.16.840.1.004950.3.579.2.593 1934 Unknown [id number] 2.16.840.1.643483.3.579.2.593 1934 Unknown [id number] 2.16.840.1.628679.3.579.2.593 1934 Unknown [id number] 2.16.840.1.613210.3.579.2.593 1934 Unknown [id number] 2.16.840.1.230153.3.579.2.356 1934 Unknown [id number] 2.16.840.1.602523.3.579.2.356 1934 Unknown [id number] 2.16.840.1.286745.3.579.2.356 1934 Unknown [id number] 2.16.840.1.091392.3.579.2.356 1934 Unknown [id number] 2.16.840.1.504835.3.579.2.356 1934 Unknown [id number] 2.16.840.1.656122.3.579.2.356 1934 Unknown [id number] 2.16.840.1.101741.3.579.2.356 1934 Unknown [id number] 2.16.840.1.803726.3.579.2.356 1934 Unknown [id number] 2.16.840.1.028334.3.579.2.356 1934 Unknown [id number] 2.840.1.485468.3.579.2.356 1934 Unknown [id number] 2.840.1.550354.3.579.2.356 1934 Unknown [id number] 2.840.1.227750.3.579.2.356 1934 Unknown [id number] 2.0.1.456484.3.579.2.356 1934 Unknown [id number] 2.0.1.042064.3.579.2.356 1934 Unknown [id number] 2.0.1.179390.3.579.2.1286 1934 Unknown [id number] .0.1.226572.3.579.2.1286 1934 Unknown [id number] 2.0.1.926159.3.579.2.1286 1934 Unknown [id number] .0.1.574922.3.579.2.1244 Medicare Medicare [id number] Medicare Medicare [id number] Unknown Unknown [place] BC/BS [id number] Unknown [id number] 2.0.1.996736.3.579.2.531 Unknown [id number] 2.840.1.068400.3.579.2.531 Unknown [id number] 2.840.1.713076.3.579.2.531 Unknown [id number] 2.840.1.592348.3.579.2.531 Social History Date Type Detail Facility Start: 05-29-2023 End: 11-05-2023 No alcohol use No alcohol use -[facility] 250 DO Work Phone: Comment on above: 2 cups coffee daily; Start: 07-19-2019 End: 07-11-2023 Tobacco smoking status NHIS Never smoked tobacco (finding) [facility] Start: 1934 End: 1934 Sex Assigned At Male [facility] Start: 02-28-2022 Dept. of D ermatology Start: 03-31-2022 End: 07-11-2023 Tobacco use and exposure Smokeless tobacco [facility]-user [facility] Start: 05-29-2023 End: 08-06-2023 Alcohol intake Ex-drinker (finding) [employer] [facility] Start: 05-29-2023 End: 11-05-2023 [facility] [employer] [facility] tem Has the [employer], or [employer] threatened to shut off services in your [...] - these days [OSQ] Not at all [facility] [facility] Start: 1934 Sex Assigned At Not on file [facility] Start: 11-05-2023 Alcoholic beverage intake Lifetime non-drinker (finding) [facility] Work Phone: Start: 10-26-2023 End: 11-05-2023 Exposure to SARS-CoV-2 (event) Not sure [facility] Goals Date Patient Goal Desired Activity [...] discussion and plan. documented in this encounter [facility] Work Phone: 11-05-2023 Instructions Dex Crump [...] of your visit. documented in this encounter [facility] Work Phone: 08-06-2023 History of Present [...] lipid panel Stage 4 chronic kidney disease ([facility]) TSH; Future Check TSH and CMP. Type 2 diabetes mellitus without complication, without long-term current use of insulin ([facility]) - Hemoglobin A1c; Future - TSH; Future Check A1c. Hyperparathyroidism ([facility]) Check kidney function test. Malignant melanoma of scalp or neck ([facility]) He does not want to go back to see the specialist. I am not sure what surgery the specialist had planned Longstanding persistent atrial fibrillation ([facility]) Seems to be in sinus rhythm now. Continue Eliquis Paroxysmal atrial fibrillation ([facility]) Microalbuminuric diabetic nephropathy ([facility]) Check labs documented in this encounter [employer] 05-29-2023 History of Present illness Narrative Subjective [...] orders for this visit: Paroxysmal atrial fibrillation ([facility]) - Protime & INR; Future New order for protime and INR given to the patient. I will also fax to the [facility]. Hypertensive 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 ([facility]) - Comprehensive metabolic panel; Future Check [...] complication, without long-term current use of insulin ([facility]) - Hemoglobin A1c; Future Check A1c Arteriosclerotic vascular disease - Lipid panel; Future Check lipid panel documented in this encounter [facility] Evaluation note No assessment inform ation available [facility] Work Phone: Evaluation note N/A Dept. of Dermato logy Evaluation note Diagnosis Paroxysmal atrial fibrillation ([facility])- Primary Atrial fibrillation Hypertensive 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 ([facility]) Essential hypertension Unspecified essential hypertension Hypothyroidism, unspecified type Type 2 diabetes mellitus without complication, without long-term current use of insulin ([facility]) Arteriosclerotic vascular disease Generalized and unspecified atherosclerosis documented in this encounter [facility] Diagnosis Longstanding persistent atrial fibrillation ([facility] Primary documented in this encounter [facility] Diagnosis Hypertensive heart and [...] fibrillation (CMS-HCC) Atrial fibrillation Microalbuminuric diabetic nephropathy ([facility]) documented in this encounter [facility] Diagnosis Type 2 diabetes mellitus without complication, without long-term current use of insulin ([facility])- Primary 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) documented in this encounter [facility]* Diagnosis Arteriosclerotic cardiovascular disease (ASCVD)- Primary Unspecified cardiovascular disease Essential hypertension Unspecified essential hypertension Mixed hyperlipidemia Ventricular tachycardia (Multi) Paroxysmal ventricular tachycardia ICD (implantable cardioverter-defibrillator) in place Dilated cardiomyopathy (Multi) Other primary cardiomyopathies Ischemic cardiomyopathy Other specified forms of chronic ischemic heart disease documented in this encounter [facility] Work Phone: History of Present illness [...] the above we will continue as is. -[facility] 250 DO Work Phone: History [...] the above we will continue as is. [facility] Work Phone: History of [...] the above we [facility] DO Work Phone: History of Present [...] significant cardiac hx with decreased cardiac function [facility] Work Phone: History of Present illness NarrativePatient [...] we believe his cardiac status to be stable.[facility] DO Work Phone: History of [...] we suggested continued therapy as before without change.[facility] DO Work Phone: InstructionsNot on filedocumented in this encounter [facility] on filedocumented in this encounter [facility]ructionsNot on filedocumented in this encounter [facility] System[facility]ructionsNot on filedocumented in this encounter [facility] SystemReason for referral (narrative)* Name Reason for referral NA NA Dept. of Dermatology Reason for referral (narrative)* Consultation (Routine) - Authorized Specialty Diagnoses / Procedures Referred By [employer] Referred To Contact Cardiology Diagnoses Arteriosclerotic cardiovascular disease (ASCVD) Procedures Follow Up In Cardiology Renetta Langston MD [address] [facility] [address], [address] [address] Roslyn Mckenzie MD [address] [facility] [address], [address] [address] Referral ID Status Reason Start Date Expiration Date V isits Requested Visits Authorized [id number] Authorized 11/05/2023 11/04/2024 1 1 T [facility] Work Phone: Summary Purpose Family History [...] section and content) DATE CREATED AUTHOR 08/08/2019 [facility] DATE CREATED AUTHOR AUTHOR'S ORGANIZ ATION 02/27/2020 [facility] DATE CREATED AUTHOR AUTHOR'S ORGANIZ ATION 08/24/2021 [facility] DATE CREATED AUTHOR AUTHOR'S ORGANIZ ATION 10/27/2022 [facility] DATE CREATED AUTHOR AUTHOR'S ORGANIZ ATION 01/13/2023 [facility] DATE CREATED AUTHOR AUTHOR'S ORGANIZ ATION 01/14/2023 [employer] DATE CREATED AUTHOR AUTHOR'S ORGANIZ ATION 08/06/2023 [facility] DATE CREATED AUTHOR AUTHOR'S ORGANIZ ATION 08/07/2023 [facility] DATE CREATED AUTHOR AUTHOR'S ORGANIZ ATION 11/05/2023 [facility] DATE CREATED AUTHOR AUTHOR'S ORGANIZ ATION 01/09/2024 [facility] Care Teams (unrecognized sec tion and content) Team Status: Active Member Role Status Dates Phil Morin DO Primary Care Provider Active Team Status: Inactive Member Role Status Dates Phil Morin DO Primary Care Provider Active Renetta Langston MD Attending Provider Active [place] Relationship Specialty Start Date End Date Phil Morin DO [address], [place] [address] PCP - General Family Medicine 03/07/22 Team Status: Inactive Member Role Status Dates Phil Morin DO Primary Care Provider Active Start: June 28, 2023 End: June 28, 2023 Renetta Langston MD Attending Provider Active Start: June 28, 2023 End: June 28, 2023 [place] Relationship Specialty Start Date End Date RonnellbretPhil DO [address], [place] [address] PCP - General Family Medicine 03/07/22 [place] Relationship Specialty Start Date End Date PatiencePhil [address], [place] [address] PCP - General Family Medicine 03/07/22 [place] Relationship Specialty Start Date End Date RonnellbretPhil [address], [place] [address] PCP - General Family Medicine 03/07/22 [place] Relationship Specialty Start Date End Date RonnellbretPhil DO [address], [place] [address] PCP - General Family Medicine 03/07/22 Team Status: Inactive Member Role Status Dates Phil Morin DO Primary Care Provider Active Start: September 27, 2023 End: September 27, 2023 Renetta Langston MD Attending Provider Active Start: September 27, 2023 End: September 27, 2023 [place] Relationship Specialty Start Date End Date Patience Phil Forrest [address], [place] [address] PCP - General 05/06/14 Team Status: Inactive [...] BE BASED ON THE PRIMARY CLINICAL RECORDS. [employer] provides no warranty or guarantee of the accuracy or completeness of information in this document.
[2024-01-17 09:52] LABS: INR 2.06; Prothrombin Time 20.3 sec (9.0-11.6)
== END 2024-01-17 08:59 | disposition home or self-care (01) ==
LOC: LAB 08:59
PROVIDERS: PCP Family Medicine; Visit Provider Family Medicine
DX: I48.11 Longstanding persistent atrial fibrillation (principal)
CPT/HCPCS: 36415; 85610

== ENCOUNTER 2024-02-14 08:34 | Outpatient (OUT) | payer MEDICARE, SELFPAY ==
--- OUTSIDE RECORDS SUMMARY | 2024-02-14 08:50 | XMS_ITS | CCD ---
Author Organization [facility] Care Team Providers Care Catering Sous Chef Name Role Phone Phil Morin Unavailable Unavailable Unavailable Ronnelllong, DO Villarreal Primary Care Provider [phone] MD Aidan Langston Attending Provider Karlie Craig Unavailable Unavailable Florentino Hernadez Unavailable Unavailable Furlong, DO Villarreal Primary Care Provider MD Aidan Langston Attending Provider Gadiel Estevez Unavailable Unavailable Furlong, DO Phil Primary Care Provider [phone] MD Aidan Langston Attending Provider SUSANNAH, DR JARON Roger [...] ilable Florentino Hernadez Referring Unavailable Honda, Dr. Amrit Webster Attending Unavailabl e Furlong, Dr. Phil Forrest Primary Care Unava ilable Furlong, Dr. Phil Forrest Primary Care Unava ilable Florentino Hernadez Referring Unavailable Honda, Dr. Amrit Webster Attending Unavailabl e Florentino Hernadez Referring Unavailable Furlong, Dr. Phil Forrest Primary Care Unava ilable Honda, Dr. Amrit Webster Attending Unavailabl e Florentino Hernadez Referring Unavailable Honda, Dr. Amrit Webster Attending Unavailabl e Furlong, Dr. Phil Forrest Primary Care Unava ilable McGuinn II, Dr. Aidan Valero Attending Unavailable McGuinn II, Dr. Aidan Valero Referring Unavailable Furlong, Dr. Phil Forrest Primary Care Unava ilable Furlong, Dr. Phil Forrest Primary Care Unava ilable McGuinn II, Dr. Aidan Valero Attending Unavailable McGuinn II, Dr. Aidan Valero Referring Unavailable Thuener, Dr. Ketan Andrews Attending Unavaila ble Furlong, Dr. Phil Forrest Primary Care Unava ilable Florentino Hernadez Attending Unavailable Odell, Dr. George Menard Referring Unava ilable Furlong, Dr. Phil Forrest Primary Care Unava ilable Furlong, Dr. Phil Forrest Primary Care Unava ilable Florentino Hernadez Attending Unavailable UNKNOWN, UNKNOWN Referring Unavailable Furlong, DO Phil Primary Care Provider [phone] MD Aidan Langston Attending Provider Furlong Phil PATEL Primary Care Provider Furlong, DO Phil Primary Care Provider MD Aidan Langston Attending Provider PHIL MORIN G Attending Unavailable FURLONG, PHIL G Referring Unavailable FURLONG, PHIL G Primary Care Unavailable FURLONG, PHIL G Attending Unavailable FURLONG, PHIL G Referring Unavailable FURLONG, PHIL G Primary Care Unavailable FURLONG, PHIL G Referring Unavailable FURLONG, PHIL G Primary Care Unavailable Furlong, DO Phil Primary Care Provider MD Aidan Langston Attending Provider FurPhil queen DO Primary Care Provider Furlong, DO Phil Primary Care Provider MD Aidan Langston Attending Provider AIDAN LANGSTON Attending Unavailable PHIL MORIN Primary Care Unavailab MD Roslyn Alicea Attending Provider Roslyn Mckenzie Admitting Unavailable Roslyn Mckenzie Attending Unavailable [facility] Primary Care Unavailable Aidan Langston Admitting Unavail able Aidan Langston Attending Unavail able Dearing, Phil Primary Care Unavailable Aidan Langston Admitting Unavail able Aidan Langston Attending Unavail able Furlo, Phil Primary Care Unavailable Aidan Langston Admitting Unavail able Aidan Langston Attending Unavail able Dearing, Phil Primary Care Unavailable Aidan Langston Attending Unavail able CarmenuinnAidan Admitting Unavail able Furvan [facility], Phil Primary Care Unavailable Allergies Allergy Classification Reported Allergen(s) Allergy Type Date of Onset Reaction(s) Facility (19 sources) Aspirin; Translations: [aspirin] Drug Allergy 2 Other (See Comments), GI bleeding -[facility] DO Work Phone: (1 source) No [...] propionate 0.05 mg/actuat metered dose nasal spray (13 sources) Corticosteroid Start: 07-19-19 Fluticasone Propionate Active July 19, 2019 1:00am furosemide 20 mg oral tablet (19 sources) Loop Diuretic Start: 11-17-19 End: 11-05-19 take 1 tablet by mouth once [...] 07-19-2019 End: 11-05-2023 Lisinopril Active TABLET Feb [facility] 2019 1:00am rosuvastatin calcium 20 mg oral tablet (20 sources) HMG-CoA Reductase Inhibitor Start: 11-05-2023 take 1 tablet by mouth once daily rosuvastatin (Crestor) 20 mg tablet Indications: Arteriosclerotic cardiovascular disease (ASCVD) , Mixed hyperlipidemia Take 1 tablet (20 mg) by mouth once daily. 90 tablet 3 11/05/2023 Active Start: 07-19-2019 End: 11-05-2023 Rosuvastatin Active TABLET F [facility] 2019 1:00am warfarin sodium 5 mg oral [...] complication, without long-term current use of insulin ([facility]) , Hypertensive heart and renal disease [...] Onset: 2 03-07-2022 Chronic Biliary tract disease (13 sources) Biliary colic; Translations: [Calculus of bile [...] source) Taking high risk medication; Translations: [Other fci (current) drug therapy] Onset: 03-01-2023 03-01-2023 Episodic [...] Interpretation Reference Range Facility COMPREHENSIVE METABOLIC PANE [facility] 08-06-2023 Albumin [Mass/Vol] 4.2 g/dL Normal 3.2-5.3 [facility] Comment on above: Performed By: #### Gorge DELANEY, 25864-3, 6-3 #### [facility] ([id number]) [address], [address] [place] [address] ALP [Catalytic activity/Vol] 77 U/L Normal 39-130 [facility] Comment on above: Performed By: #### Gorge DELANEY, 33826-4, 6-3 #### [facility] ([id number]) [address], [address] [place] [address] ALT [Catalytic activity/Vol] 11 U/L Normal 0-40 [facility] Comment on above: Performed By: #### Gorge DELANEY, 60429-1, 6-3 #### [facility] ([id number]) [address], [address] [place] [address] Anion gap [Moles/Vol] 8 mmol/L Normal 5-15 [facility] Comment on above: Performed By: #### Gorge DELAENY, 54950-0, 6-3 #### [facility] ([id number]) [address], [address] [place] [address] AST [Catalytic activity/Vol] 19 U/L Normal 0-41 [facility] Comment on above: Performed By: #### Gorge DELANEY, 76042-3, 6-3 #### [facility] ([id number]) [address], [address] [place] [address] Bilirubin [Mass/Vol] 0.5 mg/dL Normal 0.3-1.2 [facility] Comment on above: Performed By: #### Gorge DELANEY, 30978-7, 3015-3 #### [facility] ([id number]) [address], [address] [place] [address] Calcium [Mass/Vol] 9.1 mg/dL Normal 8.5-10.5 [facility] Comment on above: Performed By: #### Gorge DELANEY, 71953-3, 3015-3 #### [facility] ([id number]) [address], [address] [place] [address] Chloride [Moles/Vol] 106 mmol/L Normal 98-109 [facility] Comment on above: Performed By: #### Gorge DELANEY, 28715-9, 3015-3 #### [facility] ([id number]) [address], [address] [place] [address] CO2 [Moles/Vol] 26 mmol/L Normal 22-32 [facility] Comment on above: Performed By: #### Gorge DELANEY, 58797-0, 3015-3 #### [facility] ([id number]) [address], [address] [place] [address] Creatinine [Mass/Vol] 2.12 mg/dL High 0.60-1.30 [facility] Comment on above: Result Comment: METH OD TRACEABLE TO IDMS STANDARD Performed By: #### Gorge DELANEY, 53019-8, 3015-3 #### [facility] ([id number]) [address], [address] [place] [address] GFR/1.73 sq M.predicted among non-blacks MDRD (S/P/Bld) [Vol rate/Area] 29 mL/min/{1.73_m2} Low >59 [facility] Comment on above: Result Comment: Reported eGFR is based on the CKD-EPI 2020 equation that does not use a race coefficient. Performed By: #### Gorge DELANEY, 13524-3, 3015-3 #### [facility] ([id number]) [address], [address] [place] [address] Glucose [Mass/Vol] 113 mg/dL High 65-99 [facility] Comment on above: Performed By: #### C RHETT, 06059-3, 6-3 #### [facility] ([id number]) [address], [address] [place] [address] Potassium [Moles/Vol] 4.8 mmol/L Normal 3.5-5.0 [facility] Comment on above: Performed By: #### C RHETT, 74417-0, 3015-3 #### [facility] ([id number]) [address], [address] [place] [address] Protein [Mass/Vol] 7.0 g/dL Normal 6.0-8.0 [facility] Comment on above: Performed By: #### C RHETT, 01699-7, 3015-3 #### [facility] ([id number]) [address], [address] [place] [address] Sodium [Moles/Vol] 140 mmol/L Normal 134-146 [facility] Comment on above: Performed By: #### C RHETT, 26319-6, 6-3 #### [facility] ([id number]) [address], [address] [place] [address] Urea nitrogen [Mass/Vol] 24 mg/dL Normal 5-27 [facility] Comment on above: Performed By: #### C RHETT, 63976-5, 6-3 #### [facility] ([id number]) [address], [address] [place] [address] Comprehensive metabolic pane donato 08-06-2023 Albumin [Mass/Vol] 4.2 g/dL 3.2 - 5.3 g/dL [facility] ALP [Catalytic activity/Vol] 77 U/L 39 - 130 U/L [facility] ALT No additional P-5'-P [Catalytic activity/Vol] 11 U/L 0 - 40 U/L [facility] Anion gap [Moles/Vol] 8 mmol/L 5 - 15 mmol/L [facility] AST [Catalytic activity/Vol] 19 U/L 0 - 41 U/L [facility] Bilirubin [Mass/Vol] 0.5 mg/dL 0.3 - 1 .2 mg/dL [facility] Calcium [Mass/Vol] 9.1 mg/dL 8.5 - 10. 5 mg/dL [facility] Chloride [Moles/Vol] 106 mmol/L 98 - 10 9 mmol/L [facility] CO2 [Moles/Vol] 26 mmol/L 22 - 32 mmol/L [facility] Creatinine [Mass/Vol] 2.12 mg/dL High 0.60 - 1.30 mg/dL [facility] Comment on above: METHOD TRACEABLE TO [facility] STANDARD eGFR (CKD-EPI)non-race dependent 29 Low - PINF [facility] Comment on above: Reported eGFR is based on the CKD-EPI 2020 equation that does not use a race coefficient. Glucose [Mass/Vol] 113 mg/dL High 65 - 99 mg/dL [facility] Potassium [Moles/Vol] 4.8 mmol/L 3.5 - 5.0 mmol/L [facility] Protein [Mass/Vol] 7.0 g/dL 6.0 - 8.0 g/dL [facility] Sodium [Moles/Vol] 140 mmol/L 134 - 146 mmol/L [facility] Urea nitrogen [Mass/Vol] 24 mg/dL 5 - 27 mg/dL [facility] HGB A1C (GLYCO-HGB)on 2023 Glucose [Mass/Vol] 140 mg/dL Normal [facility] Comment on above: Performed By: #### C RHETT, 18723-5, 3016-3 #### [facility] ([id number]) [address] [facility], [address] [place] [address] HbA1c (Bld) [Mass fraction] 6.5 % High 4.4-5.6 [facility] Comment on above: Result Comment: NOTE ADA Guidelines Result HgbA1c Normal : less than 5.7 % Prediabetes : 5.7 % to 6.4 % Diabetes : > 6.4 % Use with caution in patients with abnormal hemoglobin variants as the half-life of red blood cells and in vivo glycation rates are affected. Performed By: #### C , 29977-3, 3016-3 #### [facility] ([id number]) [address] [facility], [address] [place] [address] Hemoglobin A1con 08-06-2023 Average glucose Estimated from glycated hemoglobin (Bld) [Mass/Vol] 140 mg/dL [facility] HbA1c (Bld) [Mass fraction] 6.5 % High 4.4 - 5.6 % [facility] Comment on above: NOTE ADA Guidelines Result HgbA1c Normal : less than 5.7 % Prediabetes : 5.7 % to 6.4 % Diabetes : > 6.4 % Use with caution in patients with abnormal hemoglobin variants as the half-life of red blood cells and in vivo glycation rates are affected. Interpretation and review of laboratory results Abnormal [facility] Lipid 1996 panelon Cholesterol [Mass/Vol] 91 mg/dL Low 150 - 200 mg/dL [facility] Cholesterol in HDL [Mass/Vol] 39 mg/dL Low 39 - PINF mg/dL [facility] Comment on above: HDL <40 mg/dL - High Risk HDL > or = 40mg/dL- Desirable HDL >60 mg/dL - Negative Risk Cholesterol in LDL [Mass/Vol] 18 mg/dL NINF - 130 mg/dL [facility] Comment on above: LDL <100 mg/dL - Desirable LDL >160 mg/dL - High Risk Cholesterol in VLDL [Mass/Vol] 34 mg/dL High 0 - 30 mg/dL [facility] Cholesterol.total/Chol esterol in HDL [Mass ratio] 2.3 {ratio} 1.0 - 5.0 [facility] Triglyceride [Mass/Vol] 168 mg/dL High 27 - 150 mg/dL [facility] Cholesterol [Mass/Vol] 91 mg/dL Low 150-200 [facility] Comment on above: Performed By: ###[place], [address]-8, 3016-3 #### [facility] ([id number]) [address], [address] [place] [address] Cholesterol in HDL [Mass/Vol] 39 mg/dL Low >39 [facility] Comment on above: Result Comment: HDL <40 mg/dL - High Risk HDL > or = 40mg/dL- Desirable HDL >60 mg/dL - Negative Risk Performed By: ###[place], [address]-6, 3016-3 #### [facility] ([id number]) [address], [address] [place] [address] Cholesterol in LDL [Mass/Vol] 18 mg/dL Normal <130 [facility] Comment on above: Result Comment: LDL <100 mg/dL - Desirable LDL >160 mg/dL - High Risk Performed By: ###[place], [address]-7, 3016-3 #### [facility] ([id number]) [address], [address] [place] [address] Cholesterol in VLDL [Mass/Vol] 34 mg/dL High 0-30 [facility] Comment on above: Performed By: #### Gorge DELANEY, 60509-9, 3016-3 #### [facility] ([id number]) [address], [facility] [address] [place] [address] CHOLESTEROL:HDL 2.3 Normal 1.0-5.0 [facility] Comment on above: Performed By: #### Gorge DELANEY, 29511-7, 3016-3 #### [facility] ([id number]) [address] [facility], [facility] [address] [place] [address] Triglyceride [Mass/Vol] 168 mg/dL High 27-150 [facility] Comment on above: Performed By: #### Gorge DELANEY, 40969-2, 3016-3 #### [facility] ([id number]) [address] [facility], [address] [address] No Panel Informationon 08-05 Interpretation and review of laboratory results Abnormal [facility] TSHon 08-06-2023 TSH Qn 3.12 m[IU]/L [facility] TSH Qnon 08-06-2023 [facility] TSH 3.12 uIU/mL Normal 0.49-4.67 [facility] Comment on above: Performed By: #### Gorge DELANEY, 31058-5, 3016-3 #### [facility] ([id number]) [address] [facility], [address] [address] Protime & INRon 07-18-2023 External Inr 2.02 [facility] External Protime 20.6 [facility] Office Visit (Cardiology)on 01-12-2023 Follow-up visit Diagnoses/Problems [...] a smoker Tobacco Use Screening; Status:Complete; Done: [id number] Ventricular tachycardia IO EKG Electrocardiogram- 12 Lead; Status:Complete; Done: [id number] Patient Instructions Please bring all medicines, vitamins, [...] negative for complaint. Vitals Vital Signs Recorded: [id number] 02:17PM Heart Rate72, Apical Zbympqft829, RUE, Sitting Cvdobulom89, RUE, Sitting Height5 ft 9 in Zvrtup021 lb BMI Lssnobldbl61.78 kg/m2 BSA Calculated1.88 Tobacco Useb) No Falls [...] time . Signatures Electronically signed by : Aidan Langston MD; Jan 13 2023 2:45PM EST (Author) Normal [facility] Tobacco Screening.on 023 Fall risk assessment a) No falls within the last year [facility] 250 DO Work Phone: Tobacco use status [facility]PH[facility] b) No -[facility] DO Work Phone: PROTIMEon 10-17-2022 INR Coag (PPP) [Relative time] 2.38 {INR} Normal [facility] Comment on above: Performed By: #### P T #### [facility] [address] [place] [address] Dr. Sariah Boyle INR GUIDELINES SEE BELOW Normal [facility] Comment on above: Result Comment: NHUNG RED INR: 2.0 - 3.0 CONDITIONS NOT LISTED BELOW 2.5 - 3.5 FOR PROSTHETIC HEART VALVE REPLACEMENT 2.5 - 3.5 RECURRENT THROMBOSIS Performed By: #### P T #### [facility] [address] [place] [address] Dr. Sariah Boyle PT Coag (PPP) [Time] 24.0 s Critically high 9.0-11.6 [facility] Comment on above: Performed By: #### P T #### [facility] [address] [place] [address] Dr. Sariah Boyle PROTIMEon 09-15-2022 INR Coag (PPP) [Relative time] 2.18 {INR} Normal [facility] Comment on above: Performed By: #### P T #### [facility] [address] [place] [address] Dr. Sariah Boyle INR GUIDELINES SEE BELOW Normal [facility] [place] Comment on above: Result Comment: NHUNG RED INR: 2.0 - 3.0 CONDITIONS NOT LISTED BELOW 2.5 - 3.5 FOR PROSTHETIC HEART VALVE REPLACEMENT 2.5 - 3.5 RECURRENT THROMBOSIS Performed By: #### P T #### [facility] [address] [place] [address] Dr. Sariah Boyle PT Coag (PPP) [Time] 22.1 s Critically high 9.0-11.6 [facility] Comment on above: Performed By: #### P T #### [facility] [address] [place] [address] Dr. Sariah Boyle PROTIMEon 08-15-2022 INR Coag (PPP) [Relative time] 2.44 {INR} Normal [facility] Comment on above: Performed By: #### P T #### [facility] [address] [place] [address] Dr. Sariah Boyle INR GUIDELINES SEE BELOW Normal [facility] [place] Comment on above: Result Comment: NHUNG RED INR: 2.0 - 3.0 CONDITIONS NOT LISTED BELOW 2.5 - 3.5 FOR PROSTHETIC HEART VALVE REPLACEMENT 2.5 - 3.5 RECURRENT THROMBOSIS Performed By: #### P T #### [facility] [address] [place] [address] Dr. Sariah Boyle PT Coag (PPP) [Time] 24.6 s Critically high 9.0-11.6 [facility] Comment on above: Performed By: #### P T #### [facility] [address] [place] [address] Dr. Sariah Boyle PROTIMEon 07-18-2022 INR Coag (PPP) [Relative time] 2.33 {INR} Normal [facility] Comment on above: Performed By: #### P T #### [facility] [address] [place] [address] Dr. Sariah Boyle INR GUIDELINES SEE BELOW Normal [facility] [place] Comment on above: Result Comment: NHUNG RED INR: 2.0 - 3.0 CONDITIONS NOT LISTED BELOW 2.5 - 3.5 FOR PROSTHETIC HEART VALVE REPLACEMENT 2.5 - 3.5 RECURRENT THROMBOSIS Performed By: #### P T #### [facility] [address] [place] [address] Dr. Sariah Boyle PT Coag (PPP) [Time] 23.5 s Critically high 9.0-11.6 [facility] Comment on above: Performed By: #### P T #### [facility] [address] [place], [place] [address] Dr. Sariah Boyle Office Visit (Cardiology)on 07-14-2022 [...] PM No Known Food Allergies Recorded By: Rosmeary Campos; 04/24/2014 1:30:55 PM Social History Problems [...] negative for complaint. Vitals Vital Signs Recorded: [id number] 03:41PM Heart Rate80, L Radial Cjpggyyi721, LUE, Sitting Rgnvjisga28, LUE, Sitting Height5 ft 9 in Zdjgtm911 lb BMI Jgwabikxxr97.92 kg/m2 BSA Calculated1.89 Tobacco Useb) No PHQ-2 [...] Electronically si (more content not included)... Normal [facility] Tobacco Screening.on 023 Adult depression screening assessment No [facility] [employer] DO Work Phone: Fall risk assessment a) No falls within the last year [facility] [employer] 250 DO Work Phone: Tobacco use status CPHS b) No [facility] [employer] 250 DO Work Phone: PROTIMEon 07-04-2022 INR Coag (PPP) [Relative time] 1.91 {INR} Normal [facility] Comment on above: Performed By: #### P T #### [facility] [address] [place] [address] Dr. Sariah Boyle INR GUIDELINES SEE BELOW Normal [facility] Comment on above: Result Comment: NHUNG RED INR: 2.0 - 3.0 CONDITIONS NOT LISTED BELOW 2.5 - 3.5 FOR PROSTHETIC HEART VALVE REPLACEMENT 2.5 - 3.5 RECURRENT THROMBOSIS Performed By: #### P T #### [facility] [address] [place] [address] [address] Sariah Boyle PT Coag (PPP) [Time] 19.5 s Critically high 9.0-11.6 [facility] Comment on above: Performed By: #### P T #### [facility] [address] [place] [address] [address] Sariah Boyle Dermatopathologyon 3 Dermatopathology Name DONOVAN JACOME Pathologist: AMRIT CHRISTIAN MD Date of Procedure: 06/15/2022 Date Received: 06/16/2022 Date Reported 06/23/2022 Submitting Physician: FLORENTINO HERNADEZ MD, Location: [facility] Other External # FINAL DIAGNOSIS [...] area is recommended. Electronically Signed Out by AMRIT CHRISTIAN M.D. Note One or more of the reagents used to perform assays on this specimen MAY have contained components considered to be analyte specific reagents (ASR's). ASR's have not been cleared or approved by the U.S. Food and Drug Administration. These assays were developed and their performance characteristics determined by the Department of Pathology at [facility]. The FDA does not require this test [...] which stained appropriately. Electronically Signed Out By AMRIT CHRISTIAN MD/[facility] By the signature on this report, the individual or group listed as making the Final Interpretation/Diagno sis certifies that they have reviewed this case. 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 ([place] office). Specimens Submitted As: A: SKIN, SCALP STAGE II A B: SKIN, SCALP STAGE II B Gross Description: A: Received in formalin, labeled A, is a camara, semi-circular, ellipsoid piece of skin measuring [id number], oriented by the surgeon with orange ink on the bisected margin and blue ink marking the radii on either side of the central black-inked margin. The specimen is embedded en face in toto in one block. B: Received in formalin, labeled B, is a camara, semi-circular, ellipsoid piece of skin measuring [id number], oriented by the surgeon with orange ink on the bisected margin and green ink marking the radii on either side of the central black-inked margin. The specimen is embedded en face in toto in one block. dcp/06/16/2022 The assays/tests were performed with appropriate positive and negative controls which stained appropriately. [facility] [place] [id number] [place] [address] [facility] Comment on above: Performed By: #### D #### Dermatopathology No Panel Informationon 06-[address] [place] [address] DO Work Phone: PROTIMEon 06-07-2022 INR Coag (PPP) [Relative time] 1.44 {INR} Normal [facility] Comment on above: Performed By: #### P T #### [facility] [address] [place] [address] Dr. Sariah Boyle INR GUIDELINES SEE BELOW Normal [facility] Comment on above: Result Comment: NHUNG RED INR: 2.0 - 3.0 CONDITIONS NOT LISTED BELOW 2.5 - 3.5 FOR PROSTHETIC HEART VALVE REPLACEMENT 2.5 - 3.5 RECURRENT THROMBOSIS Performed By: #### P T #### [facility] [address] [address] [address] Sariah Boyle PT Coag (PPP) [Time] 15.0 s Critically high 9.0-11.6 [facility] Comment on above: Performed By: #### P T #### [facility] [address] [address] [address] Sariah Boyle Dermatopathologyon 3 Dermatopathology Name DONOVAN JACOME Pathologist: AMRIT CHRISTIAN MD Date of Procedure: 06/06/2022 Date [...] WITH PREVIOUS PROCEDURE. Electronically Signed Out by AMRIT CHRISTIAN M.D. Electronically Signed Out By AMRIT CHRISTIAN MD/[facility] By the signature on this report, the individual or group listed as making the Final Interpretation/Diagno sis certifies that they have reviewed this case. Diagnostic interpretation performed at [facility]opath [facility] [address] [facility], [facility] [address] Microscopic Description: A. Microscopic examination reveals a [...] lentigo stage I maligna type. Path #: [id number]. A1, B1, C1, D1, E1, F1, G1. Excision. ([facility]). Specimens Submitted As: A: SKIN, OCCIPITAL SCALP A1 B: SKIN, OCCIPITAL SCALP B1 C: SKIN, OCCIPITAL SCALP C1 D: SKIN, OCCIPITAL SCALP D1 E: SKIN, OCCIPITAL SCALP E1 F: SKIN, OCCIPITAL SCALP F1 G: SKIN, OCCIPITAL SCALP G1 DEBULK Gross Description: A: Received in formalin, labeled A1, is a camara, ellipsoid piece of skin measuring [id number], oriented by the surgeon with yellow ink on one margin, orange ink on the opposite margin, and black ink marking the margin opposite the surgical margin. The specimen is embedded en face in toto in one block. B: Received in formalin, labeled B1, is a camara, ellipsoid piece of skin measuring [id number], oriented by the surgeon with orange ink on one surgical margin, green ink on the opposite margin, black ink marking the margin opposite the surgical margin. The specimen is embedded en face in toto in one block. C: Received in formalin, labeled C1, is a camara, ellipsoid piece of skin measuring [id number], oriented by the surgeon with green ink on one margin, yellow ink on the opposite margin, and black ink marking the margin opposite the surgical margin. The specimen is embedded en face in toto in one block. D: Received in formalin, labeled D1, is a camara, ellipsoid piece of skin measuring 05s9s3oe, oriented by the surgeon with yellow ink on one margin, red ink on the opposite margin, and black ink marking the margin opposite the surgical margin. E: Received in formalin, labeled E1, is a camara, ellipsoid piece of skin measuring 23z6p0cx, oriented by the surgeon with red ink on one margin, blue ink on the opposite margin, and black ink marking the margin opposite the surgical margin. F: Received in formalin, labeled F1, is a camara, ellipsoid piece of skin measuring 63t9c5ht, oriented by the surgeon with blue ink on one margin, yellow ink on the opposite margin, and black ink marking the margin opposite the surgical margin. G: Received in formalin, labeled G1, (more content not included)... Normal [facility] Comment on above: Performed By: #### D #### Dermatopathology No Panel Informationon 06-06 [facility] DO Work Phone: PROTIMEon 05-08-2022 INR Coag (PPP) [Relative time] 2.06 {INR} Normal [facility] Comment on above: Performed By: #### P T #### [facility] [address] [place] [address] Dr. Sariah Boyle INR GUIDELINES SEE BELOW Normal [facility] Comment on above: Result Comment: NHUNG RED INR: 2.0 - 3.0 CONDITIONS NOT LISTED BELOW 2.5 - 3.5 FOR PROSTHETIC HEART VALVE REPLACEMENT 2.5 - 3.5 RECURRENT THROMBOSIS Performed By: #### P T #### [facility] [address] [place] [address] Dr. Sariah Boyle PT Coag (PPP) [Time] 21.2 s Critically high 9.0-11.6 [facility] Comment on above: Performed By: #### P T #### [facility] [address] [place] [address] Dr. Sariah Boyle PROTIMEon 04-07-2022 INR Coag (PPP) [Relative time] 3.37 {INR} Normal [facility] Comment on above: Performed By: #### P T #### [facility] [address] [place] [address] Dr. Sariah Boyle INR GUIDELINES SEE BELOW Normal [facility] [place] Comment on above: Result Comment: NHUNG RED INR: 2.0 - 3.0 CONDITIONS NOT LISTED BELOW 2.5 - 3.5 FOR PROSTHETIC HEART VALVE REPLACEMENT 2.5 - 3.5 RECURRENT THROMBOSIS Performed By: #### P T #### [facility] [address], [place] [address] Dr. Sariah Boyle PT Coag (PPP) [Time] 33.6 s Critically high 9.0-11.6 [facility] Comment on above: Performed By: #### P T #### [facility] [address], [place] [address] Dr. Sariah Boyle Initial Visit (Otolaryngolog y)on [...] melanoma of the scalp History of Present Yjbjync65-guly-rpy man referred by Dr. Hernadez for management [...] DAILY.-Managed by PCP Vitals Vital Signs Recorded: [id number] 02:27PM Height5 ft 9 in Gsfpcz187 lb BMI Edxhfhghgk93.92 kg/m2 BSA Calculated1.89 Tobacco Useb) No Falls [...] Apr 19 2022 6:13AM EST (Author) Normal [facility] Tobacco Screening.on 022 Fall risk assessment a) No falls within the last year [facility] Work Phone: Tobacco use status [facility] b) No [facility] Work Phone: Dermatopathologyon Dermatopathology Name DONOVAN JACOME Pathologist: AMRIT CHRISTIAN MD Date of Procedure: 03/23/2022 Date Received: 03/24/2022 Date Reported 03/27/2022 Submitting Physician: FLORENTINO HERNADEZ MD, Location: [facility] Copy To/Referring/Attendin g: GEORGE STOKES [...] section was performed. Electronically Signed Out by AMRIT CHRISTIAN M.D. CASE SUMMARY REPORT A. 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 Electronically Signed Out By AMRIT CHRISTIAN MD/[facility] By the signature on this report, the individual or group listed as making the Final Interpretation/Diagno sis certifies that they have reviewed this case. Diagnostic interpretation performed at Dermatopath Lab [address] [place] [address], [place] [id number] Clinical History: Previously parietal biopsy. Narrow excisional biopsy today for confirmation of depth. ([facility]). Specimens Submitted As: A: SKIN, OCCIPITAL SCALP Gross Description: Received in formalin is one camara-brown, ellipsoid piece of skin measuring [id number]. The specimen is inked and embedded in toto in four blocks. The tips are in Block A1. dcp/03/25/2022 [facility] [address] [facility] Comment on above: Performed By: #### D #### Dermatopathology No Panel Informationon 03-23 -Otolaryngol [facility] Work Phone: PROTIMEon 03-06-2022 INR Coag (PPP) [Relative time] 2.08 {INR} Normal [facility] Comment on above: Performed By: #### P T #### [facility] [address] [place] [address] Dr. Sariah Boyle INR GUIDELINES SEE BELOW Normal [facility] Comment on above: Result Comment: NHUNG RED INR: 2.0 - 3.0 CONDITIONS NOT LISTED BELOW 2.5 - 3.5 FOR PROSTHETIC HEART VALVE REPLACEMENT 2.5 - 3.5 RECURRENT THROMBOSIS Performed By: #### P T #### [facility] [address] [address] [address] Sariah Boyle PT Coag (PPP) [Time] 21.4 s Critically high 9.0-11.6 [facility] Comment on above: Performed By: #### P T #### [facility] [address] [place] [address] Dr. Sariah Boyle Dermatopathologyon Dermatopathology Name: VIANEY JACOME Pathologist: AMRIT CHRISTIAN MD Date of Procedure: 02/16/2022 Date Received: 02/16/2022 Date Reported 02/21/2022 Submitting Physician: FLORENTINO HERNADEZ MD, Location: [facility] Copy To/Referring/Attendin g: MD GADIEL REEVES FINAL DIAGNOSIS 2 SL[facility] #[id number] (BX: 02/06/2022) SKIN, OCCIPITAL SCALP, SHAVE BIOPSY: [...] in the dermis. Electronically Signed Out by AMRIT CHRISTIAN M.D. CANCER SUMMARY REPORT A. 2 [facility] #[id number] (BX: 02/06/2022): SPECIMEN Procedure: Biopsy, shave Specimen [...] FINDINGS Additional Findings: Dermal nevus ADDITIONAL TESTING [employer] Spider Blocks: Normal Block: None Tumor Block: A1 and A2 Electronically Signed Out By AMRIT CHRISTIAN MD/G[facility] Diagnostic interpretation performed at [facility] Dermatopath Lab [id number], [facility] [address] Clinical History: SHAVE/ 2.9 X 2.4CM BCC VS SCC VS MELANOMA VS OTHER Specimens Submitted As: A: 2 SLIDES[facility] #[id number] (BX: 02/06/2022) Gross Description: Received for consultation from [facility] are two slides labeled [id number] (BX: 02/06/2022) along with the corresponding pathology report. Slide/Block Description 2 SLIDES, [id number]. Keep Slides: N Slides Returned: N Personal Consult: N Normal [facility] Comment on above: Performed By: #### D #### Dermatopathology PROTIMEon 02-03-2022 INR Coag (PPP) [Relative time] 1.83 {INR} Normal [facility] Comment on above: Performed By: #### P T #### [facility] [address] [place] [address] Dr. Sariah Boyle INR GUIDELINES SEE BELOW Normal [facility] Comment on above: Result Comment: NHUNG RED INR: 2.0 - 3.0 CONDITIONS NOT LISTED BELOW 2.5 - 3.5 FOR PROSTHETIC HEART VALVE REPLACEMENT 2.5 - 3.5 RECURRENT THROMBOSIS Performed By: #### P T #### [facility] [address] [address] [address] Sariah Boyle PT Coag (PPP) [Time] 19.0 s Critically high 9.0-11.6 [facility] Comment on above: Performed By: #### P T #### [facility] [address] [place] [address] Dr. Sariah Boyle PROTIMEon 01-02-2022 INR Coag (PPP) [Relative time] 2.05 {INR} Normal [facility] Comment on above: Performed By: #### P T #### [facility] [address] [place] [address] Dr. Sariah Boyle INR GUIDELINES SEE BELOW Normal [facility] Comment on above: Result Comment: NHUNG RED INR: 2.0 - 3.0 CONDITIONS NOT LISTED BELOW 2.5 - 3.5 FOR PROSTHETIC HEART VALVE REPLACEMENT 2.5 - 3.5 RECURRENT THROMBOSIS Performed By: #### P T #### [facility] [address] [address] [address] Sariah Boyle PT Coag (PPP) [Time] 21.1 s Critically high 9.0-11.6 [facility] Comment on above: Performed By: #### P T #### [facility] [address] [address] [address] Sariah Boyle Tobacco Screening.on 022 Adult depression screening assessment No [facility] 250 DO Work Phone: Fall risk assessment a) No falls within the last year [facility] DO Work Phone: Tobacco use status [facility] b) No [facility] [place] [facility] DO Work Phone: PROTIMEon 12-02-2021 INR Coag (PPP) [Relative time] 2.22 {INR} Normal [facility] Comment on above: Performed By: #### P T #### [facility] [address] [place] [address] Dr. Sariah Boyle INR GUIDELINES SEE BELOW Normal [facility] Comment on above: Result Comment: NHUNG RED INR: 2.0 - 3.0 CONDITIONS NOT LISTED BELOW 2.5 - 3.5 FOR PROSTHETIC HEART VALVE REPLACEMENT 2.5 - 3.5 RECURRENT THROMBOSIS Performed By: #### P T #### [facility] [address] [address] [address] Sariah Boyle PT Coag (PPP) [Time] 22.8 s Critically high 9.0-11.6 [facility] Comment on above: Performed By: #### P T #### [facility] [address] [address] [address] Sariah Boyle PROTIMEon 11-18-2021 INR Coag (PPP) [Relative time] 1.95 {INR} Normal [facility] Comment on above: Performed By: #### P T #### [facility] [address] [place] [address] Dr. Sariah Boyle INR GUIDELINES SEE BELOW Normal [facility] Comment on above: Result Comment: NHUNG RED INR: 2.0 - 3.0 CONDITIONS NOT LISTED BELOW 2.5 - 3.5 FOR PROSTHETIC HEART VALVE REPLACEMENT 2.5 - 3.5 RECURRENT THROMBOSIS Performed By: #### P T #### [facility] [address] [place] [address] Dr. Sariah Boyle PT Coag (PPP) [Time] 20.2 s Critically high 9.0-11.6 [facility] Comment on above: Performed By: #### P T #### [facility] [address] [place] [address] Dr. Sariah Boyle COMPREHENSIVE METABOLIC PANE Donato 08-23-2021 Albumin [Mass/Vol] 4.1 g/dL Normal 3.6-5.1 [facility] Comment on above: Performed By: #### 1 0231, 7600 #### [facility] [place] [address] Debt Collection Specialist: Jose Juan Arriola MD Albumin/Globulin [Mass ratio] 1.6 {ratio} Normal 1.0-2.5 [facility] Comment on above: Performed By: #### 1 0231, 7600 #### [facility] [place] [address] Debt Collection Specialist: Jose Juan Arriola MD ALP [Catalytic activity/Vol] 61 U/L Normal 35-144 [facility] Comment on above: Performed By: #### 1 0231, 7600 #### [facility] [place] [address] Debt Collection Specialist: Jose Juan Arriola MD ALT [Catalytic activity/Vol] 9 U/L Normal 9-46 [facility] Comment on above: Performed By: #### 1 0231, 7600 #### [facility] [address] [place] [address] Debt Collection Specialist: Jose Juan Arriola MD AST [Catalytic activity/Vol] 14 U/L Normal 10-35 [facility] Comment on above: Performed By: #### 1 0231, 7600 #### [facility] [place] [address] Debt Collection Specialist: Jose Juan Arriola MD Bilirubin [Mass/Vol] 0.6 mg/dL Normal 0.2-1.2 [facility] Comment on above: Performed By: #### 1 023, 7600 #### [facility] [place] [address] Debt Collection Specialist: Jose Juan Arriola MD Calcium [Mass/Vol] 9.1 mg/dL Normal 8.6-10.3 [facility] Comment on above: Performed By: #### 1 023, 7600 #### [facility] [place] [address] Debt Collection Specialist: Jose Juan Arriola MD Chloride [Moles/Vol] 109 mmol/L Normal 98-110 [facility] Comment on above: Performed By: #### 1 023, 7600 #### [facility] [place] [address] Debt Collection Specialist: Jose Juan Arriola MD CO2 [Moles/Vol] 26 mmol/L Normal 20-32 [facility] Comment on above: Performed By: #### 1 023, 7600 #### [facility] [place] [address] Debt Collection Specialist: Jose Juan Arriola MD Creatinine [Mass/Vol] 2.15 mg/dL High 0.70-1.[address] [facility] Comment on above: Result Comment: For patients >49 years of age, the reference limit for Creatinine is approximately 13% higher for people identified as -Citizen Of [place]. Performed By: #### 1 0231, 7600 #### [facility] [place] [address] Debt Collection Specialist: Jose Juan Arriola MD eGFR NON-AFR. KOSOVAN 27 mL/min/1.73m2 Low > OR = 60 [facility] Comment on above: Performed By: #### 1 023, 7600 #### [facility] [place] [address] Debt Collection Specialist: Jose Juan Arriola MD GFR/1.73 sq M.predicted among blacks MDRD (S/P/Bld) [Vol rate/Area] 31 mL/min/{1.73_m2} Low > OR = 60 [facility] Comment on above: Performed By: #### 1 023, 7600 #### [facility] [place] [address] Debt Collection Specialist: Jose Juan Arriola MD Globulin (S) [Mass/Vol] 2.5 g/dL Normal 1.9-3.7 [facility] Comment on above: Performed By: #### 1 230, 7600 #### [facility] [place] [address] Debt Collection Specialist: Jose Juan Arriola MD Glucose [Mass/Vol] 93 mg/dL Normal 65-99 [facility] Comment on above: Result Comment: Fasting reference interval Performed By: #### 1 023, 7600 #### [facility] [place] [address] Debt Collection Specialist: Jose Juan Arriola MD Potassium [Moles/Vol] 4.7 mmol/L Normal 3.5-5.[address] [facility] Comment on above: Performed By: #### 1 023, 7600 #### [facility] [place] [address] Debt Collection Specialist: Jose Juan Arriola MD Protein [Mass/Vol] 6.6 g/dL Normal 6.1-8.1 [facility] Comment on above: Performed By: #### 1 023, 7600 #### [facility] [place] [address] Debt Collection Specialist: Jose Juan Arriola MD Sodium [Moles/Vol] 142 mmol/L Normal 135-146 [facility] Comment on above: Performed By: #### 1 0231, 7600 #### [facility] [place] [address] Debt Collection Specialist: Jose Juan Arriola MD Urea nitrogen [Mass/Vol] 31 mg/dL High 7-25 [facility] Comment on above: Performed By: #### 1 0231, 7600 #### [facility] [place] [address] Debt Collection Specialist: Jose Juan Arriola MD Urea nitrogen/Creatinine [Mass ratio] 14 mg/mg Normal 6-22 [facility] Comment on above: Performed By: #### 1 0231, 7600 #### [facility] [place] [address] Debt Collection Specialist: Jose Juan Arriola MD LIPID PANEL, [facility] 0 Cholesterol [Mass/Vol] 101 mg/dL Normal <200 [facility] Comment on above: Order Comment: FASTI NG:YES FASTING: YES Performed By: #### 1 0231, 7600 #### [facility] [place] [address] Debt Collection Specialist: Jose Juan Arriola MD Cholesterol in HDL [Mass/Vol] 40 mg/dL Normal > OR = 40 [facility] Comment on above: Order Comment: FASTI NG:YES FASTING: YES Performed By: #### 1 0231, 7600 #### [facility] [place] [address] Debt Collection Specialist: Jose Juan Arriola MD Cholesterol in LDL [...] LDL-C. Phillip FITZGERALD et al. MERYL. 2013;310(19): 0377-9920 (http://education.[employer]Guard.INTEGRATED BIOPHARMA/faq/CUE539) Performed By: #### 1 0231, 7600 #### [facility] [address], [address] [place] [address] Debt Collection Specialist: Jose Juan Arriola MD Cholesterol.total/Chol esterol in HDL [Mass ratio] 2.5 {ratio} Normal <5.0 [facility] Comment on above: Order Comment: FASTI NG:YES FASTING: YES Performed By: #### 1 0231, 7600 #### [facility] [address], [address] [place] [address] Debt Collection Specialist: Jose Juan Arriola MD NON HDL CHOLESTEROL 61 mg/dL (calc) Normal <130 [facility] Comment on above: Order Comment: FASTI NG:YES FASTING: YES Result Comment: For patients with diabetes plus 1 major ASCVD risk factor, treating to a non-HDL-C goal of <100 mg/dL (LDL-C of <70 mg/dL) is considered a therapeutic option. Performed By: #### 1 0231, 7600 #### [facility] [place] [address] Debt Collection Specialist: Jose Juan Arriola MD Triglyceride [Mass/Vol] 127 mg/dL Normal <150 [facility] Comment on above: Order Comment: FASTI NG:YES FASTING: YES Performed By: #### 1 0231, 7600 #### [facility] [place] [address] Debt Collection Specialist: Jose Juan Arriola MD Tobacco Screening.on 021 Fall risk assessment a) No falls within the last year -[facility] 250 DO Work Phone: Tobacco use status [facility] b) No -[facility] [place] 250 DO Work Phone: B TYPE NATRIURETIC PEPTIDE ( BNP)on 11-03-2020 B TYPE NATRIURETIC PEPTIDE (BNP) Normal [facility] Comment on above: Result Comment: FROZ EN EDTA PLASMA IS REQUIRED TEST NOT PERFORMED No suitable specimen received. Please review the test requirements at [email or web address] Performed By: #### 9 05, 86001, 59527, 6399, 718, 899, 622, 09459, 25138 #### [facility] [place] [address] Debt Collection Specialist: Jose Juan Arriola MD CBC (INCLUDES DIFF/PLT)on Basophils (Bld) [#/Vol] 0.071 10*3/uL Normal 0-200 [facility] Comment on above: Performed By: #### 9 05, 56848, 08055, 6399, 718, 899, 622, 01971, 36074 #### [facility] [place] [address] Debt Collection Specialist: Jose Juan Arriola MD Basophils/100 WBC (Bld) 1.0 % Normal [facility] Comment on above: Performed By: #### 9 05, 31482, 51758, 6399, 718, 899, 622, 44896, 14837 #### [facility] [place] [address] Debt Collection Specialist: Jose Juan Arriola MD Eosinophils (Bld) [#/Vol] 0.099 10*3/uL Normal 15-500 [facility] Comment on above: Performed By: #### 9 05, 67438, 38217, 6399, 718, 899, 622, 90242, 47324 #### [facility] [place] [address] Debt Collection Specialist: Jose Juan Arriola MD Eosinophils/100 WBC (Bld) 1.4 % Normal [facility] Comment on above: Performed By: #### 9 05, 48705, 02398, 6399, 718, 899, 622, 96868, 76676 #### [facility] [place] [address] Debt Collection Specialist: Jose Juan Arriola MD Erythrocyte distribution width (RBC) [Ratio] 14.4 % Normal 11.0-15.0 [facility] Comment on above: Performed By: #### 9 05, 43722, 01767, 6399, 718, 899, 622, 46443, 80954 #### [facility] [place] [address] Debt Collection Specialist: Jose Juan Arriola MD Hematocrit (Bld) [Volume fraction] 42.7 % Normal 38.5-50.0 [facility] Comment on above: Performed By: #### 9 05, 83304, 42516, 6399, 718, 899, 622, 24589, 50873 #### [facility] [place] [address] Debt Collection Specialist: Jose Juan Arriola MD Hemoglobin (Bld) [Mass/Vol] 13.7 g/dL Normal 13.2-17.1 [facility] Comment on above: Performed By: #### 9 05, 22307, 99617, 6399, 718, 899, 622, 77322, 18315 #### [facility] [place] [address] Debt Collection Specialist: Jose Juan Arriola MD Lymphocytes (Bld) [#/Vol] 1.512 10*3/uL Normal 850-3900 [facility] Comment on above: Performed By: #### 9 05, 00356, 20030, 6399, 718, 899, 622, 80587, 41407 #### [facility] [place] [address] Debt Collection Specialist: Jose Juan Arriola MD Lymphocytes/100 WBC (Bld) 21.3 % Normal [facility] Comment on above: Performed By: #### 9 05, 50072, 48480, 6399, 718, 899, 622, 26331, 64268 #### [facility] [place] [address] Debt Collection Specialist: Jose Juan Arriola MD MCH (RBC) [Entitic mass] 28.5 pg Normal 27.0-33.0 [facility] Comment on above: Performed By: #### 9 05, 65196, 72144, 6399, 718, 899, 622, 42005, 32182 #### [facility] [place] [address] Debt Collection Specialist: Jose Juan Arriola MD MCHC (RBC) [Mass/Vol] 32.1 g/dL Normal 32.0-36.[address] [facility] Comment on above: Performed By: #### 9 05, 72711, 14818, 6399, 718, 899, 622, 48530, 12235 #### [facility] [place] [address] Debt Collection Specialist: Jose Juan Arriola MD MCV (RBC) [Entitic vol] 89.0 fL Normal 80.0-100.0 [facility] Comment on above: Performed By: #### 9 05, 83711, 10922, 6399, 718, 899, 622, 88495, 85472 #### [facility] [place] [address] Debt Collection Specialist: Jose Juan Arriola MD Monocytes (Bld) [#/Vol] 0.738 10*3/uL Normal 200-950 [facility] Comment on above: Performed By: #### 9 05, 39882, 35104, 6399, 718, 899, 622, 46138, 59662 #### [facility] [place] [address] Debt Collection Specialist: Jose Juan Arriola MD Monocytes/100 WBC (Bld) 10.4 % Normal [facility] Comment on above: Performed By: #### 9 05, 04188, 18356, 6399, 718, 899, 622, 82603, 02959 #### [facility] [place] [address] Debt Collection Specialist: Jose Juan Arriola MD Neutrophils (Bld) [#/Vol] 4.679 10*3/uL Normal 0132-3469 [facility] Comment on above: Performed By: #### 9 05, 54759, 34201, 6399, 718, 899, 622, 86941, 26992 #### [facility] [place] [address] Debt Collection Specialist: Jose Juan Arriola MD Neutrophils/100 WBC (Bld) 65.9 % Normal [facility] Comment on above: Performed By: #### 9 05, 41687, 88742, 6399, 718, 899, 622, 50854, 21471 #### [facility] [place] [address] Debt Collection Specialist: Jose Juan Arriola MD Platelet mean volume (Bld) [Entitic vol] 11.4 fL Normal 7.5-12.5 [facility] Comment on above: Performed By: #### 9 05, 70050, 75320, 6399, 718, 899, 622, 22448, 14172 #### [facility] [place] [address] Debt Collection Specialist: Jose Juan Arriola MD Platelets (Bld) [#/Vol] 229 10*3/uL Normal 140-400 [facility] Comment on above: Performed By: #### 9 05, 67191, 35968, 6399, 718, 899, 622, 66926, 17359 #### [facility] [place] [address] Debt Collection Specialist: Jose Juan Arriola MD RBC (Bld) [#/Vol] 4.80 10*6/uL Normal 4.20-5.80 [facility] Comment on above: Performed By: #### 9 05, 59902, 89243, 6399, 718, 899, 622, 96034, 94510 #### [facility] [place] [address] Debt Collection Specialist: Jose Juan Arriola MD WBC (Bld) [#/Vol] 7.1 10*3/uL Normal 3.8-10.8 [facility] Comment on above: Performed By: #### 9 05, 18610, 16600, 6399, 718, 899, 622, 87367, 49642 #### [facility] [place] [address] Debt Collection Specialist: Jose Juan Arriola MD COMPREHENSIVE METABOLIC PANE [facility] 11-03-2020 Albumin [Mass/Vol] 4.1 g/dL Normal 3.6-5.1 [facility] Comment on above: Performed By: #### 9 05, 48007, 51149, 6399, 718, 899, 622, 47644, 86765 #### [facility] [place] [address] Debt Collection Specialist: Jose Juan Arriola MD Albumin/Globulin [Mass ratio] 1.7 {ratio} Normal 1.0-2.5 [facility] Comment on above: Performed By: #### 9 05, 29433, 66371, 6399, 718, 899, 622, 53887, 45963 #### [facility] [place] [address] Debt Collection Specialist: Jose Juan Arriola MD ALP [Catalytic activity/Vol] 62 U/L Normal 35-144 [facility] Comment on above: Performed By: #### 9 05, 09841, 16785, 6399, 718, 899, 622, 38597, 44610 #### [facility] [place] [address] Debt Collection Specialist: Jose Juan Arriola MD ALT [Catalytic activity/Vol] 9 U/L Normal 9-46 [facility] Comment on above: Performed By: #### 9 05, 79410, 72982, 6399, 718, 899, 622, 39740, 42064 #### [facility] [place] [address] Debt Collection Specialist: Jose Juan Arriola MD AST [Catalytic activity/Vol] 13 U/L Normal 10-35 [facility] Comment on above: Performed By: #### 9 05, 34393, 86706, 6399, 718, 899, 622, 92376, 68697 #### [facility] [place] [address] Debt Collection Specialist: Jose Juan Arriola MD Bilirubin [Mass/Vol] 0.7 mg/dL Normal 0.2-1.2 [facility] Comment on above: Performed By: #### 9 05, 77823, 85565, 6399, 718, 899, 622, 05231, 07009 #### [facility] [place] [address] Debt Collection Specialist: Jose Juan Arriola MD Calcium [Mass/Vol] 9.5 mg/dL Normal 8.6-10.3 [facility] Comment on above: Performed By: #### 9 05, 71465, 63894, 6399, 718, 899, 622, 27527, 75878 #### [facility] [place] [address] Debt Collection Specialist: Jose Juan Arriola MD Chloride [Moles/Vol] 109 mmol/L Normal 98-110 [facility] Comment on above: Performed By: #### 9 05, 72677, 08603, 6399, 718, 899, 622, 34885, 76312 #### [facility] [place] [address] Debt Collection Specialist: Jose Juan Arriola MD CO2 [Moles/Vol] 25 mmol/L Normal 20-32 [facility] Comment on above: Performed By: #### 9 05, 13073, 66179, 6399, 718, 899, 622, 84844, 95435 #### [facility] [place] [address] Debt Collection Specialist: Jose Juan Arriola MD Creatinine [Mass/Vol] 1.99 mg/dL High 0.70-1.[address] [facility] Comment on above: Result Comment: For patients >49 years of age, the reference limit for Creatinine is approximately 13% higher for people identified as -Citizen Of [place]. Performed By: #### 9 05, 88530, 56372, 6399, 718, 899, 622, 22661, 16961 #### [facility] [place] [address] Debt Collection Specialist: Jose Juan Arriola MD eGFR NON-AFR. KOSOVAN 30 mL/min/1.73m2 Low > OR = 60 [facility] Comment on above: Performed By: #### 9 05, 20469, 39674, 6399, 718, 899, 622, 97120, 18583 #### [facility] [place] [address] Debt Collection Specialist: Jose Juan Arriola MD GFR/1.73 sq M.predicted among blacks MDRD (S/P/Bld) [Vol rate/Area] 34 mL/min/{1.73_m2} Low > OR = 60 [facility] Comment on above: Performed By: #### 9 05, 11084, 64103, 6399, 718, 899, 622, 07429, 72038 #### [facility] [place] [address] Debt Collection Specialist: Jose Juan Arriola MD Globulin (S) [Mass/Vol] 2.4 g/dL Normal 1.9-3.7 [facility] Comment on above: Performed By: #### 9 05, 64218, 15393, 6399, 718, 899, 622, 95360, 75123 #### [facility] [place] [address] Debt Collection Specialist: Jose Juan Arriola MD Glucose [Mass/Vol] 144 mg/dL High 65-99 [facility] Comment on above: Result Comment: Fasting reference interval For someone without known diabetes, a glucose value >125 mg/dL indicates that they may have diabetes and this should be confirmed with a follow-up test. Performed By: #### 9 05, 24583, 26370, 6399, 718, 899, 622, 19740, 02759 #### [facility] [address], [address] [place] [address] Debt Collection Specialist: Jose Juan Arriola MD Potassium [Moles/Vol] 4.9 mmol/L Normal 3.5-5.[address] [facility] Comment on above: Performed By: #### 9 05, 54660, 71884, 6399, 718, 899, 622, 49296, 54793 #### [facility] [place] [address] Debt Collection Specialist: Jose Juan Arriola MD Protein [Mass/Vol] 6.5 g/dL Normal 6.1-8.1 [facility] Comment on above: Performed By: #### 9 05, 57607, 75840, 6399, 718, 899, 622, 60604, 58258 #### [facility] [place] [address] Debt Collection Specialist: Jose Juan Arriola MD Sodium [Moles/Vol] 141 mmol/L Normal 135-146 [facility] Comment on above: Performed By: #### 9 05, 62151, 57738, 6399, 718, 899, 622, 89033, 27456 #### [facility] [place] [address] Debt Collection Specialist: Jose Juan Arriola MD Urea nitrogen [Mass/Vol] 31 mg/dL High 7-25 [facility] Comment on above: Performed By: #### 9 05, 08835, 34068, 6399, 718, 899, 622, 11330, 87955 #### [facility] [place] [address] Debt Collection Specialist: Jose Juan Arriola MD Urea nitrogen/Creatinine [Mass ratio] 16 mg/mg Normal 6-22 [facility] Comment on above: Performed By: #### 9 05, 43505, 66901, 6399, 718, 899, 622, 76377, 29062 #### [facility] [place] [address] Debt Collection Specialist: Jose Juan Arriola MD MAGNESIUMon 11-03-2020 Magnesium [Mass/Vol] 2.1 mg/dL Normal 1.5-2.5 [facility] Comment on above: Performed By: #### 9 05, 77081, 39091, 6399, 718, 899, 622, 20832, 74206 #### [facility] [place] [address] Debt Collection Specialist: Jose Juan Arriola MD PHOSPHATE ( PHOSPHORUS)on 11-03-2020 Phosphate [Mass/Vol] 2.9 mg/dL Normal 2.1-4.3 [facility] Comment on above: Performed By: #### 9 05, 24114, 16193, 6399, 718, 899, 622, 41387, 65674 #### [facility] [place] [address] Debt Collection Specialist: Jose Juan Arriola MD PTH, INTACT WITHOUT [...] Normal High Performed By: #### 9 05, 38456, 62526, 6399, 718, 899, 622, 65590, 83464 #### [facility] [place] [address] Debt Collection Specialist: Jose Juan Arriola MD TSHon 11-03-2020 TSH Qn 2.08 m[IU]/L Normal 0.40-4.50 [facility] Comment on above: Performed By: #### 9 05, 23884, 87559, 6399, 718, 899, 622, 62362, 86964 #### [facility] [address], [address] [place] [address] Debt Collection Specialist: Jose Juan Arriola MD URIC ACIDon 11-03-2020 Urate [Mass/Vol] 8.5 mg/dL High 4.0-8.0 [facility] Comment on above: Result Comment: Ther apeutic target for gout patients: <6.0 mg/dL Performed By: #### 9 05, 27664, 14017, 6399, 718, 899, 622, 51073, 82694 #### [facility] [place] [address] [facility], [address] [place] [address] Debt Collection Specialist: Jose Juan Arriola MD VITAMIN D,25-OH,TOTAL,IAon 0 [...] D, (D2,D3), LC/MS/MS is recommended: order code 14637 (patients >2yrs). See Note 1 Note 1 For additional information, please refer to http://education.ClipClock/faq/DSG986 (This link is being provided for informational/ educational purposes only.) Performed By: #### 1 0231, 0960 #### [facility] [address], [address] [place] [address] Debt Collection Specialist: Jose Juan Arriola MD [facility] CARDIAC STRESS/REST INJE CTIONon 08-07-2019 [facility] CARDIAC STRESS/REST INJECTION Patient Name: DONOVAN JACOME STUDY: MYOCARDIAL PERFUSION STRESS TEST WITH LEXISCAN Performing facility: [facility], [address] [place] [address], [address], [place] [address] [facility] Provider: Melanie Langston MD, [facility] PCP: Dr. Alden Morin Supervising provider: Doron Jacobsen MD, FACC INDICATION: Arteriosclerotic cardiovascular disease Pre-operative risk assessment for [place]bladder [place] [facility] [place] HISTORY: Gender: M; Age: 83 y/o ; Height: 175.26 cm; Weight: 74.0833524 kg. High Cholesterol; CAD; HTN; ICD V. Tach., ICD Denies smoking. COMPARISON: Previous nuclear testing completed at [facility]. ACCESSION NUMBER(S): [id number]; [id number]; [id number] ORDERING CLINICIAN: AIDAN LANGSTON TECHNIQUE: ONE DAY protocol. Stress injection: [...] no significant interval changes. Electronically signed by: DORON JACOBSEN MD [facility] Reminderson 03-14-2019 Reminders - From: Nelly DOWNING, Qing Morales To: EU - Clinical; Sent: 03/04/2019 11:29:06 EDT Show up: 03/14/2019 11:29:00 EDT Subject: Ambulatory Reminder Due Date/Time: 03/18/2019 11:29:00 EDT Reminder/Recall FISH/Cytology done 03/04/19 Negative. Normal [facility] Vital Signs Date Time Vital Sign Value Performing Clinician Facility 11-05-2023 08:57-0400 Body height 180.3 cm Aidan Langston MD Work Phone: [facility] 11-05-2023 08:57-0400 Body mass index (BMI) [Ratio] 21.9 kg/m2 Aidan Langston MD Work Phone: [facility] 11-05-2023 08:57-0400 Body weight 71.22 kg Aidan Langston MD Work Phone: [facility] 11-05-2023 08:57-0400 Diastolic blood pressure 90 mm[Hg] Aidan Langston MD Work Phone: [facility] 11-05-2023 08:57-0400 Heart rate 82 /min Aidan Langston MD Work Phone: [facility] 11-05-2023 08:57-0400 Systolic blood pressure 130 mm[Hg] Aidan Langston MD Work Phone: [facility] 08-06-2023 10:10-0400 Body height 177.8 cm Phil Morin DO Work Phone: [facility] 08-06-2023 10:10-0400 Body mass index (BMI) [Ratio] 23.69 kg/m2 Phil Morin DO Work Phone: [facility] 08-06-2023 10:10-0400 Body temperature 97.81 [degF] Phil Morin DO Work Phone: [facility] 08-06-2023 10:10-0400 Body weight 74.89 kg Phil Furlong DO Work Phone: [facility] 08-06-2023 10:10-0400 Diastolic blood pressure 60 mm[Hg] Phil Furlong DO Work Phone: [facility] 08-06-2023 10:10-0400 Heart rate 93 /min Phil Furlong DO Work Phone: [facility] 08-06-2023 10:10-0400 Respiratory rate 18 /min Phil Furlong DO Work Phone: [facility] 08-06-2023 10:10-0400 SaO2% (BldA) [Mass fraction] 97 % Phil Furlong DO Work Phone: [facility] 08-06-2023 10:10-0400 Systolic blood pressure 106 mm[Hg] Phil Furlong DO Work Phone: [facility] 05-29-2023 16:13-0500 Body height 177.8 cm Phil Furlong DO Work Phone: [facility] 05-29-2023 16:13-0500 Body mass index (BMI) [Ratio] 24.12 kg/m2 Phil Furlong DO Work Phone: [facility] 05-29-2023 16:13-0500 Body temperature 97.81 [degF] Phil Furlong DO Work Phone: [facility] 05-29-2023 16:13-0500 Body weight 76.25 kg Phil Furlong DO Work Phone: [facility] 05-29-2023 16:13-0500 Diastolic blood pressure 68 mm[Hg] Phil Furlong DO Work Phone: [facility] 05-29-2023 16:13-0500 Heart rate 104 /min Phil Furlong DO Work Phone: [facility] 05-29-2023 16:13-0500 SaO2% (BldA) [Mass fraction] 99 % Philgirish Reynagalong DO Work Phone: [facility] 05-29-2023 16:13-0500 Systolic blood pressure 128 mm[Hg] Phil Reynagalong DO Work Phone: [facility] 01-12-2023 14:17-0400 Body height 175.26 cm Phil Soliz Furlong Work Phone: [facility] [employer] [place] DO Work Phone: 01-12-2023 14:17-0400 Body mass index (BMI) [Ratio] 23.78 kg/m2 Phil Soilz Furlong Work Phone: [facility] [employer] [place] [employer] DO Work Phone: 01-12-2023 14:17-0400 Body surface area Derived from formula 1.88 m2 Phil Soliz Furlong Work Phone: [facility] [employer] [employer] DO Work Phone: 01-12-2023 14:17-0400 Body weight 73.03 kg Phil Reynagalong Work Phone: [facility] [employer] DO Work Phone: 01-12-2023 14:17-0400 Diastolic blood pressure 78 mm[Hg] Phil Soliz Furlong Work Phone: [facility] [facility] DO Work Phone: 01-12-2023 14:17-0400 Heart rate 72 /min Phil G Furlong Work Phone: [facility] [facility] DO Work Phone: 01-12-2023 14:17-0400 Systolic blood pressure 122 mm[Hg] Phil Soliz Furlong Work Phone: [facility] [employer] 250 DO Work Phone: 07-14-2022 15:41-0500 Body height 175.26 cm Phil Reynagalong Work Phone: [facility] [employer] DO Work Phone: 07-14-2022 15:41-0500 Body mass index (BMI) [Ratio] 23.92 kg/m2 Phil Soliz Furlong Work Phone: [facility] [employer] DO Work Phone: 07-14-2022 15:41-0500 Body surface area Derived from formula 1.89 m2 Phil Reynagalong Work Phone: [facility] [employer] DO Work Phone: 07-14-2022 15:41-0500 Body weight 73.48 kg Phil Reynagalong Work Phone: [facility] [employer] DO Work Phone: 07-14-2022 15:41-0500 Diastolic blood pressure 80 mm[Hg] Phil Soliz Furlong Work Phone: [facility] [employer] DO Work Phone: 07-14-2022 15:41-0500 Heart rate 80 /min Phil Reynagalong Work Phone: [facility] [employer] DO Work Phone: 07-14-2022 15:41-0500 Systolic blood pressure 130 mm[Hg] Phil Martínez Furlong Work Phone: [facility] [employer] DO Work Phone: 06-15-2022 12:40-0500 Diastolic blood pressure 78 mm[Hg] Florentino Hernadez [facility] 06-15-2022 12:40-0500 Systolic blood pressure 167 mm[Hg] Florentino Hernadez [facility] 06-06-2022 08:07-0500 Diastolic blood pressure 85 mm[Hg] Florentino Hernadez [facility] 06-06-2022 08:07-0500 Systolic blood pressure 150 mm[Hg] Florentino Hernadez [facility] 04-03-2022 14:27-0500 Body height 175.26 cm Phil Nicoleng Work Phone: [facility] [place] Work Phone: 04-03-2022 14:27-0500 Body mass index (BMI) [Ratio] 23.92 kg/m2 Phil Soliz Quinyx ABlong Work Phone: [facility]low[facility]gnz[facility]qertq[facility] [place] Work Phone: 04-03-2022 14:27-0500 Body surface area Derived from formula 1.89 m2 Phil Reynagalong Work Phone: HJ-Zcmvxkmrbepuhc-[facility] [place] Work Phone: 04-03-2022 14:27-0500 Body weight 73.48 kg Phil Nicoleng Work Phone: DN-Uwmwgplrtiarzc-[facility] [place] Work Phone: 03-23-2022 09:29-0400 Diastolic blood pressure 89 mm[Hg] Karlie Craig Dept[facility] of D[facility]atology 03-23-2022 09:29-0400 Systolic blood pressure 160 mm[Hg] Karlie Craig [facility] 03-23-2022 08:29-0400 Diastolic blood pressure 89 mm[Hg] Florentino Hernadez Dept[facility] 03-23-2022 08:29-0400 Systolic blood pressure 160 mm[Hg] Florentino Hernadez [facility] 12-13-2021 08:48-0400 Body height 175.26 cm Phil G Furlong Work Phone: [facility] [facility] DO Work Phone: 12-13-2021 08:48-0400 Body mass index (BMI) [Ratio] 23.63 kg/m2 Phil G Furlong Work Phone: [facility] DO Work Phone: 12-13-2021 08:48-0400 Body surface area Derived from formula 1.88 m2 Phil G Furlong Work Phone: [facility] [place] [facility] DO Work Phone: 12-13-2021 08:48-0400 Body weight 72.58 kg Phil G Furlong Work Phone: [facility] [facility] DO Work Phone: 12-13-2021 08:48-0400 Diastolic blood pressure 80 mm[Hg] Phil G Furlong Work Phone: [facility] [facility] DO Work Phone: 12-13-2021 08:48-0400 Heart rate 80 /min Phil G Furlong Work Phone: [facility] DO Work Phone: 12-13-2021 08:48-0400 Systolic blood pressure 128 mm[Hg] Phil G Furlong Work Phone: [facility] [facility] DO Work Phone: 05-02-2021 08:27-0500 Body height 175.26 cm Phil G Furlong Work Phone: [facility] DO Work Phone: 05-02-2021 08:27-0500 Body mass index (BMI) [Ratio] 24.37 kg/m2 Phil Reynagalong Work Phone: [facility] [employer] [place] DO Work Phone: 05-02-2021 08:27-0500 Body surface area Derived from formula 1.9 m2 Phil Soliz Furlong Work Phone: [facility] [employer] [place] [facility] DO Work Phone: 05-02-2021 08:27-0500 Body weight 74.84 kg Phil Reynagalong Work Phone: [facility] [employer] [place] [facility] DO Work Phone: 05-02-2021 08:27-0500 Diastolic blood pressure 76 mm[Hg] Phil Soliz Furlong Work Phone: [facility] [employer] [place] [facility] DO Work Phone: 05-02-2021 08:27-0500 Heart rate 81 /min Phil Reynagalong Work Phone: [facility] [employer] [place] [facility] DO Work Phone: 05-02-2021 08:27-0500 Systolic blood pressure 137 mm[Hg] Phil Reynagalong Work Phone: [facility] [employer] 250 DO Work Phone: 1934 23:00-0500 >na< Karlie Craig Dept. of Dermato logy Encounters Encounter Date Encounter Type Care Provider Facility Start: 02-05-2024 End: 02-05-2024 Patient encounter procedure DO Phil Furlong Work Phone: [facility] Start: 02-05-2024 End: 02-05-2024 ambulatory DO Phil Furlong Work Phone: [facility] Work Phone: Start: 12-27-2023 End: 12-27-2023 Patient encounter procedure DO Philgirish Reynagalong Work Phone: [facility] Start: 12-27-2023 End: 12-27-2023 ambulatory DO Philgirish Reynagalong Work Phone: [facility] Work Phone: Start: 11-05-2023 End: 11-05-2023 Office outpatient visit 25 minutes Aidan Langston MD Work Phone: [facility] Comment on above: Arteriosclerotic car diovascular disease (ASCVD) (Primary Dx); Essential hypertension; Mixed hyperlipidemia; Ventricular tachycardia (Multi); ICD (implantable cardioverter-defibrillator) in place; Dilated cardiomyopathy (Multi); Ischemic cardiomyopathy Start: 11-05-2023 End: 11-05-2023 ambulatory AIDAN Aparicio [facility] Start: 09-27-2023 End: 09-27-2023 Patient encounter procedure DO Philgirish Nicoleng Work Phone: [facility] Start: 09-27-2023 End: 09-27-2023 ambulatory DO Phil Nicoleng Work Phone: [facility] Work Phone: Start: 08-23-2023 Orders Only Phil Nicole ng DO Work Phone: [facility] Start: 08-09-2023 Orders Only Phil Nicole ng DO Work Phone: [facility] Comment on above: Type 2 diabetes gamaliel itus without complication, without long- term current use of insulin ([facility]) (Primary Dx); Hypertensive 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 ([facility]) Start: 08-06-2023 End: 08-07-2023 ambulatory [place] Mart[place]nez [facility] Start: 08-06-2023 End: 08-06-2023 ambulatory [facility] Start: 08-06-2023 End: 08-06-2023 Office outpatient visit 25 minutes Phil Morin DO Work Phone: [facility] Comment on above: Hypertensive heart a nd renal disease with (congestive) heart failure ([facility]) (Primary Dx); Hyperlipidemia, unspecified hyperlipidemia type; Stage 4 chronic kidney disease (CMS-HCC); Type 2 diabetes mellitus without complication, without long-term current use of insulin (CMS-HCC); Hyperparathyroidism (CMS-HCC); Malignant melanoma of scalp or neck ([facility]); Longstanding persistent atrial fibrillation (CMS-HCC); Paroxysmal atrial fibrillation (CMS-HCC); Microalbuminuric diabetic nephropathy ([facility]) Start: 07-18-2023 Orders Only Phil pool DO Work Phone: [facility] Comment on above: Longstanding persist ent atrial fibrillation ([facility]) (Primary Dx) Start: 06-28-2023 End: 06-28-2023 Patient encounter procedure DO Phil Morin Work Phone: [facility] Start: 06-28-2023 End: 06-28-2023 ambulatory DO Phil Morin Work Phone: [facility] Work Phone: Start: 05-29-2023 End: 05-29-2023 ambulatory PHIL MORIN [facility] Start: 05-29-2023 End: 05-29-2023 Office outpatient visit 25 minutes Phil Morin DO Work Phone: [facility] Comment on above: Paroxysmal atrial fi brillation ([facility]) (Primary Dx); Hypertensive 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 ([facility]); Essential hypertension; Hypothyroidism, unspecified type; Type 2 diabetes mellitus without complication, without long-term current use of insulin ([facility]); Arteriosclerotic vascular disease Start: 03-20-2023 End: 03-20-2023 Patient encounter procedure DO Phil Morin Work Phone: [facility] Start: 03-20-2023 End: 03-20-2023 ambulatory DO Phil Furlong Work Phone: [facility] Work Phone: Start: 01-12-2023 Office outpatient vi sit 25 minutes Phil G Furlong Work Phone: [facility] DO Work Phone: Start: 01-12-2023 Patient encounter procedure De nnis G Furlong Work Phone: [facility] DO Work Phone: Start: 01-12-[address] Aidan Langston Facility: Start: 12-04-[address] Phil Morin Facility:[id number] Start: 10-17-2022 End: 10-18-[address] JARON DAVALOS Facility:H1 Start: 09-15-2022 End: 09-16-[address] JARON DAVALOS Facility:H1 Start: 08-28-[address] Phil Morin Facility:[id number] Start: 08-28-2022 End: 08-28-2022 ambulatory DO Phil Furlong Work Phone: [facility] Work Phone: Start: 08-28-2022 End: 08-28-2022 Patient encounter procedure DO Phil Furlong Work Phone: [facility] Start: 08-15-2022 End: 08-16-[address] JARON DAVALOS Facility:H1 Start: 07-18-2022 End: 07-19-[address] JARON DAVALOS Facility:H1 Start: 07-14-2022 Office outpatient vi sit 25 minutes Phil G Furlong Work Phone: [facility] DO Work Phone: Start: 07-14-[address] Phil Morin Facility:[id number] Start: 07-04-2022 End: 07-05-[address] JARON DAVALOS Facility:H1 Start: 07-03-2022 Karlie Craig Dept. of D ermatology Start: 06-16-2022 Gadiel Estevez Dept[facility] of Dermatology Start: 06-16-2022 Telephone encounter Phil duron Work Phone: [facility] 250 DO Work Phone: Start: 06-15-2022 Florentino Hernadez Dept. of Dermatology Start: 06-15-[address] Phil Morin Facility:[id number] Start: 06-15-[address] Phil Morin Facility:[id number] Start: 06-09-2022 Rx Renewal Phil pool Work Phone: [facility] 250 DO Work Phone: Start: 06-07-2022 End: 06-08-[address] PHIL MORIN Facility:H1 Start: 06-07-2022 Florentino Hernadez Dept. of Dermatology Start: 06-06-2022 ambulatory Florentino Hernadez Facility: [id number] Start: 06-06-2022 ambulatory Florentino Hernadez Facility: [id number] Start: 05-17-[address] Phil Morin Facility:[id number] Start: 05-17-2022 End: 05-17-2022 ambulatory DO Phil Morin Work Phone: [facility] Work Phone: Start: 05-17-2022 End: 05-17-2022 Patient encounter procedure DO Phil Morin Work Phone: [facility] Check Start: 05-08-2022 End: 05-09-[address] PHIL MORIN Facility:H1 Start: 05-01-2022 Rx Renewal Phil Nicole ng Work Phone: -[facility] 250 DO Work Phone: Start: 04-07-2022 End: 04-08-[address] PHIL MORIN Facility:H1 Start: 04-04-2022 Karlie Craig Dept. of D ermatology Start: 04-03-2022 Office outpatient ne w 45 minutes Phil Morin Work Phone: [facility] Work Phone: Start: 04-03-2022 Patient encounter procedure De mindi Soliz Ronnelldestinyyrn Work Phone: [facility] Work Phone: Start: 04-03-[address] Ketan Iyer Facility:[id number] Start: 03-23-2022 Florentino Hernadez Dept. of Dermatology Start: 03-23-2022 ambulatory Florentino Herndaez Facility: [id number] Start: 03-23-2022 ambulatory Florentino Hernadez Facility: [id number] Start: 03-06-2022 End: 03-07-[address] PHIL MORIN Facility:H1 Start: 02-28-2022 Karlie Craig Dept. of D ermatology Start: 02-16-2022 ambulatory Folrentino Hernadez Facility: [id number] Start: 02-15-[address] Phil Morin Facility:[id number] Start: 02-15-2022 End: 02-15-2022 ambulatory DO Phil Morin Work Phone: [facility] Work Phone: Start: 02-15-2022 End: 02-15-2022 Patient encounter procedure DO Phil Morin Work Phone: [facility] Start: 02-03-2022 End: 02-04-[address] PHIL MORIN Facility:H1 Start: 01-02-2022 End: 01-03-[address] PHIL MORIN Facility:H1 Start: 12-13-2021 Office outpatient vi sit 25 minutes Phil Soliz Ronnelldestinyyrn Work Phone: [facility] 250 DO Work Phone: Start: 12-02-2021 End: 12-16-[address] PHIL MORIN Facility:H1 Start: 11-18-2021 End: 11-19-[address] PHIL MORIN Facility: Start: 05-02-2021 Office outpatient vi sit 25 minutes Phil Nicoleyrn Work Phone: [facility] 250 DO Work Phone: Procedures Date Procedure Procedure Detail Performing Clinician Start: 08-06-2023 Adult depression scr eening assessment Phil Morin DO Work Phone: Start: 05-29-2023 Adult depression scr eening assessment Phil Morin DO Work Phone: Start: 06-15-2022 Excision malignant l esion s/n/h/f/g 2.1-3.0 cm Florentino Hernadez Start: 06-06-2022 Excision malignant: Scalp/Neck/Hands/Feet/Genit adam - 4.0cm [id number] Florentino Hernadez Start: 06-06-2022 Excision malignant: Scalp/Neck/Hands/Feet/Genit adam - 4.0cm [id number] Florentino Hernadez Start: 03-23-2022 End: 03-23-2022 Exc b9 lesion mrgn xcp sk tg t/a/l 3.1-4.0 cm Florentino Hernadez Start: 02-28-2022 Karlie Dari n Brain Surgery Phil Soliz Ronnelldestiny ng Work Phone: Cataract surgery Phil Card rlong Work Phone: History Of Prior Surgery Brayan Soliz Ronnelldestinyng Work Phone: Total colonoscopy Phil dorseydestinyyrn Work Phone: Transurethral resect ion of bladder neoplasm Phil Morin Work Phone: Plan of Treatment Date Care Activity Detail Author Start: 08-11-2027 DTaP,Tdap and Td Vaccines (2 - Td or Tdap) DTaP,Tdap and Td Vaccines (2 - Td or Tdap) [facility] Start: 08-11-2027 DTaP/Tdap/Td Vaccines (2 - Td or Tdap) DTaP/Tdap/Td Vaccines (2 - Td or Tdap) [facility] Start: 08-05-2024 Administration of varicella zoster vaccine Zoster (Shingles) Vaccine (1 of 2) [facility] Comment on above: Postponed from 09/25/2015 (Patient Refus ed) Start: 08-05-2024 Adult BMI Screening Adult BMI Screening [facility] Start: 08-05-2024 Depression Screening Depression Screening [facility] Start: 08-05-2024 Tobacco Screening Tobacco Screening [facility] Start: 08-04-2024 End: 08-04-2024 Patient encounter procedure 08/04/2024 9:30 AM EDT Office Visit [facility] [address] [address] Roslyn Mckenzie MD [address] [facility] [address] [place] [address] [facility] Start: 05-29-2024 Adult BMI Screening Adult BMI Screening [facility] Start: 05-29-2024 Depression Screening Depression Screening [facility] Start: 05-29-2024 Fall Risk Screening Fall Risk Screening [facility] Start: 05-29-2024 Tobacco Screening Tobacco Screening [facility] Start: 02-06-2024 End: 02-06-2024 Patient encounter procedure 02/06/2024 9:00 AM EDT Office Visit [facility] Internal Medicine - Family Medicine [facility] [place] [id number] Phil Morin, DO [address], [place] [address] [facility] Internal [facility] - Family Medicine Start: 01-20-2024 Influenza vaccination Influenza Vaccine [facility] Start: 10-16-2023 FUV, Provider: Aidan Langston, Status: Pen, Time: 9:00 AM FUV, Provider: Aidan Langston, Status: Pen, Time: 9:00 AM [facility] 250 DO Work Phone: Start: 08-06-2023 End: 08-06-2023 Patient encounter procedure 08/06/2023 10:10 AM EDT Office Visit [facility] Internal Medicine - Family Medicine [address] [place] [address] Phil Morin, DO [address], [place] [address] [facility] Internal Medicine - Family Medicine Start: 07-30-2023 End: 07-30-2023 Patient encounter procedure 07/30/2023 10:20 AM EDT Office Visit [facility] Internal Medicine - Family Medicine [address] [place] [address] Phil Morin, DO [address], [place] [address] [facility] Internal [facility] - Family Medicine Start: 01-19-2023 COVID-19 Vaccine ( season) COVID-19 Vaccine ( season) [facility] Start: 01-12-2023 FUV, Provider: Aidan Langston, Status: Pen, Time: 2:10 PM FUV, Provider: Aidan Langston, Status: Pen, Time: 2:10 PM [facility] 250 DO Work Phone: Start: 07-14-2022 FUV, Provider: Aidan Langston, Status: Pen, Time: 3:10 PM FUV, Provider: Aidan Langston, Status: Pen, Time: 3:10 PM [facility] Work Phone: Start: 06-27-2022 FUV, Provider: Doron Jacobsen, Status: Pen, Time: 9:10 AM FUV, Provider: Doron Jacobsen, Status: Pen, Time: 9:10 AM -[facility] DO Work Phone: Start: 12-13-2021 FUV, Provider: Aidan Langston, Status: Pen, Time: 8:50 AM FUV, Provider: Aidan Langston, Status: Pen, Time: 8:50 AM [facility] DO Work Phone: Start: 06-03-2016 Creatinine measurement Creatinine Level [facility] Start: 06-03-2016 Potassium measurement Potassium Level [facility] Start: 09-25-2015 Administration of varicella zoster vaccine Zoster (Shingles) Vaccine (1 of 2) [facility] Start: 09-25-2015 Zoster Vaccines (2 of 3) Zoster Vaccines (2 of 3) [facility] Start: 1994 RSV patients and/or patients aged 60+ years (1 - 1-dose 60+ series) RSV patients and/or patients aged 60+ years (1 - 1-dose 60+ series) [facility] Start: 1952 Diabetes mellitus screening Diabetes Screening [facility] Start: 02-13-1935 Examination of skin Derm Melanoma Skin Check [facility] Start: 1934 Echocardiography Echocardiogram [facility] Start: 1934 Lipid panel Lipid Panel [facility] Start: 1934 Medicare Annual Wellness Visit [facility] Start: 1934 Screening for osteoporosis Bone Density Scan [facility] End: 05-29-2024 Comprehensive metabolic 2000 panel - Serum or Plasma Comprehensive metabolic panel Lab Routine Hypertensive 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) 1 Occurrences starting 05/29/2023 until 05/29/2024 [facility] Comment on above: 1 Occurrences starting 05/29/2023 until 05/29/2024 End: 05-29-2024 Hemoglobin A1c/Hemoglobin.total in Blood Hemoglobin A1c Lab Routine Type 2 diabetes mellitus without complication, without long-term current use of insulin ([facility]) 1 Occurrences starting 05/29/2023 until 05/29/2024 [facility] Comment on above: 1 Occurrences starting 05/29/2023 until 05/29/2024 End: 05-29-2024 Lipid panel Lipid panel Lab Routine Arteriosclerotic vascular disease 1 Occurrences starting 05/29/2023 until 05/29/2024 [facility] [place] Comment on above: 1 Occurrences starting 05/29/2023 until 05/29/2024 End: 05-29-2024 Protime & INR Protime & INR Lab Routine Paroxysmal atrial fibrillation ([facility]) 1 Occurrences starting 05/29/2023 until 05/29/2024 [facility] Work Phone: Comment on above: 1 Occurrences starting 05/29/2023 until 05/29/2024 End: 05-29-2024 Thyrotropin [Units/volume] in Serum or Plasma TSH Lab Routine Hypothyroidism, unspecified type 1 Occurrences starting 05/29/2023 until 05/29/2024 [facility] [place] Comment on above: 1 Occurrences starting 05/29/2023 until 05/29/2024 Immunizations Immunization Date Immunization Notes Care Provider [facility] 03-30-2023 Influenza, High-dose , Quadrivalent Phil Furlong DO Work Phone: [facility] 03-30-2023 influenza virus vacc ine, unspecified formulation Phil Furlong DO Work Phone: [facility] 02-16-2022 Fluzone High-Dose Quadrivalent 0.7 ML Intramuscular Suspension Prefilled Syringe Phil G Ronnelllong Work Phone: [facility] DO Work Phone: 01-28-2021 Fluad Quadrivalent 0 .5 ML Intramuscular Prefilled Syringe Phil G Ronnelllong Work Phone: [facility] 250 DO Work Phone: 07-14-2020 [employer] COVI D-19 Vacc 30 MCG/0.3ML Intramuscular Suspension Phil Nicoleng Work Phone: [place] [address] DO Work Phone: 07-01-2020 PfizerBioNTech COVI D-19 Vacc 30 MCG/0.3ML Intramuscular Suspension Phil Nicoleng Work Phone: [facility] 06-16-2020 COVID-19, mRNA, LNP- S, PF, 30mcg/0.3mL Dose Phil Morin DO Work Phone: [facility] 06-11-2020 [employer] COVI D-19 Vacc 30 MCG/0.3ML Intramuscular Suspension Phil Morin Work Phone: [place] [address] DO Work Phone: 04-05-2020 pneumococcal polysaccharide vaccine, 23 valent Phil Reynagayrn Work Phone: [place] [address] DO Work Phone: 02-23-2020 Fluad Quadrivalent 0 .5 ML Intramuscular Prefilled Syringe Phil Morin Work Phone: [place] [address] DO Work Phone: 02-19-2020 influenza, seasonal, injectable Phil Reynagang Work Phone: [place] [address] DO Work Phone: 07-20-2019 pneumococcal conjuga te vaccine, 13 valent Phil Reynagalong Work Phone: [place] [address] DO Work Phone: 03-12-2019 pneumococcal conjuga te vaccine, 13 valent Phil Reynagang Work Phone: [place] [address] DO Work Phone: 03-12-2019 Seasonal trivalent influenza vaccine, adjuvanted, preservative free Phil Reynagang Work Phone: [place] [address] DO Work Phone: 02-18-2019 influenza virus vacc ine, unspecified formulation [facility] [place] [address] DO Work Phone: 03-04-2018 influenza virus vacc ine, unspecified formulation Phil Reynagavan [facility] Work Phone: [place] [address] DO Work Phone: 08-10-2017 tetanus toxoid, redu edwin diphtheria toxoid, and acellular pertussis vaccine, adsorbed Phil Soliz Dearing Work Phone: [place] [address] DO Work Phone: 03-21-2017 influenza virus vacc ine, unspecified formulation Phil Soliz [employer] [facility] Work Phone: [place] [address] DO Work Phone: 03-13-2017 influenza, seasonal, injectable Phil Soliz [employer] Work Phone: [place] [address] DO Work Phone: 02-21-2016 influenza, seasonal, injectable, preservative free [facility] Work [facility]: [place] [address] DO Work Phone: 02-19-2016 influenza virus vacc ine, unspecified formulation Phil Reynagalong Work Phone: [place] [address] DO Work Phone: 07-31-2015 zoster vaccine, live Phil Soliz Furlong Work Phone: [place] [address] DO Work Phone: 07-31-2015 zoster vaccine, unspecified formulation Phil Morin DO Work Phone: [facility] 02-18-2015 influenza virus vacc ine, unspecified formulation Phil Reynagalong Work Phone: [place] [address] DO Work Phone: 02-17-2015 influenza, seasonal, injectable, preservative free Phil Reynagayrn DO Work Phone: [facility] 05-11-2014 pneumococcal polysaccharide vaccine, [address] [facility] Work [facility]: [place] [address] DO Work Phone: 02-18-2014 influenza virus vacc ine, unspecified formulation [facility] Work [facility]: [place] [address] DO Work Phone: 04-03-2013 pneumococcal conjuga te vaccine, 13 valent Phil Reynagang Work Phone: [place] [address] DO Work Phone: 02-18-2013 influenza virus vacc ine, unspecified formulation Phil Reynagang Work Phone: [place] [address] DO Work Phone: 02-18-2013 pneumococcal polysaccharide vaccine, 23 valent Phil Reynagalong Work Phone: [place] [address] DO Work Phone: 12-20-2011 influenza virus vacc ine, unspecified formulation Phil Reynagalong Work Phone: [place] [address] DO Work Phone: 05-21-2010 influenza virus vacc ine, unspecified formulation Phil Reynagalong Work Phone: [facility] 250 DO Work Phone: 05-21-2009 influenza virus vacc ine, unspecified formulation Phil Reynagalong Work Phone: [facility] 250 DO Work Phone: 05-21-2008 influenza virus vacc ine, unspecified formulation Phil Reynagalong Work Phone: [place] [address] DO Work Phone: 05-21-2007 pneumococcal polysaccharide vaccine, 23 valent Phil Soliz Furn[employer] Work Phone: [place] [address] DO Work Phone: 03-28-2002 pneumococcal polysaccharide vaccine, 23 valent Phil Soliz Furlong Work Phone: [place] [address] DO Work Phone: 03-21-2002 pneumococcal polysaccharide vaccine, 23 valent Phil Reynagalong DO Work Phone: [facility] 1934 pneumococcal conjuga te vaccine, 7 valent Karlie Craig Dept. of Dermatology Payers Date Payer Category Payer Self-pay [id number] 2022 Medicare [id number] 1959 Private Health Insurance [id number] 1959 Private Health Insurance [id number] 1934 Unknown [id number] 2..840.1.458825.3.579.2.593 1934 Unknown [id number] 2.16.840.1.413183.3.579.2.593 1934 Unknown [id number] 2.16.840.1.703676.3.579.2.593 1934 Unknown [id number] 2.16.840.1.383473.3.579.2.593 1934 Unknown [id number] 2.16.840.1.640154.3.579.2.593 1934 Unknown [id number] 2.16.840.1.455427.3.579.2.593 1934 Unknown [id number] 2.16.840.1.935601.3.579.2.593 1934 Unknown [id number] 2.16.840.1.819952.3.579.2.593 1934 Unknown [id number] 2.16.840.1.828353.3.579.2.593 1934 Unknown [id number] 2.16.840.1.958919.3.579.2.593 1934 Unknown [id number] 2.16.840.1.024336.3.579.2.593 1934 Unknown [id number] 2.16.840.1.283545.3.579.2.593 1934 Unknown [id number] 2.16.840.1.715411.3.579.2.593 1934 Unknown [id number] 2.16.840.1.706546.3.579.2.356 1934 Unknown [id number] 2.16.840.1.309579.3.579.2.356 1934 Unknown [id number] 2.16.840.1.248288.3.579.2.356 1934 Unknown [id number] 2.16.840.1.276636.3.579.2.356 1934 Unknown [id number] 2.16.840.1.415397.3.579.2.356 1934 Unknown [id number] 2.16.840.1.910542.3.579.2.356 1934 Unknown [id number] 2.16.840.1.246611.3.579.2.356 1934 Unknown [id number] 2.16.840.1.469967.3.579.2.356 1934 Unknown [id number] 2.16.840.1.093330.3.579.2.356 1934 Unknown [id number] 2.16.840.1.563612.3.579.2.356 1934 Unknown [id number] 2.16.840.1.816567.3.579.2.356 1934 Unknown [id number] 2.16.840.1.984246.3.579.2.356 1934 Unknown [id number] 2.16.840.1.200680.3.579.2.356 1934 Unknown [id number] 2.16.840.1.939939.3.579.2.356 1934 Unknown [id number] 2.16840.1.421253.3.579.2.1286 1934 Unknown [id number] 2.16840.1.323860.3.579.2.1286 1934 Unknown [id number] 2.16840.1.692071.3.579.2.128 1934 Unknown [id number] 2.16840.1.588028.3.579.2.1244 Medicare Medicare [id number] Medicare Medicare [id number] Unknown Unknown Dean BC/BS [id number] Unknown [id number] 2.16.840.1.671298.3.579.2.531 Unknown [id number] 2.16.840.1.938918.3.579.2.531 Unknown [id number] 2.16.840.1.162025.3.579.2.531 Unknown [id number] 2.16.840.1.041095.3.579.2.531 Unknown [id number] 2.16.840.1.436592.3.579.2.531 Social History Date Type Detail Facility Start: 05-29-2023 End: 11-05-2023 No alcohol use No alcohol use [facility] 250 DO Work Phone: Comment on above: 2 cups coffee daily; Start: 07-19-2019 End: 07-11-2023 Tobacco smoking status NHIS Never smoked tobacco (finding) [facility] Start: 1934 End: 1934 Sex Assigned At Male [facility] Start: 02-28-2022 Dept. of D ermatology Start: 03-31-2022 End: 07-11-2023 Tobacco use and exposure Smokeless tobacco non-user [facility] Start: 05-29-2023 End: 08-06-2023 Alcohol intake Ex-drinker (finding) [facility] Start: 05-29-2023 End: 11-05-2023 [facility] Has the [employer], or [employer] threatened to shut off services in your home in past 12Mo No [facility] Are you now , , , , never or living with a partner? [facility] How often to you hav e a drink containing alcohol? Never [facility] How many standard drinks containing alcohol do you have on a typical day? Patient does not drink [facility] Do you feel stress - tense, restless, nervous, or anxious, or unable to sleep at night because your mind is troubled all the time - these days [OSQ] Not at all [facility] Start: 1934 Sex Assigned At Not on file P [employer] Start: 11-05-2023 Alcoholic beverage intake Lifetime non-drinker (finding) [facility] Work Phone: Start: 10-26-2023 End: 11-05-2023 Exposure to SARS-CoV-2 (event) Not sure [facility] Goals Date Patient Goal Desired Activity /State Clinical Notes 05-29-2023 to 11-05-2023 Aidan Langston MD - 11/05/2023 9:10 AM EDTPatient Anjali Morin, DO - 08/06/2023 10:10 AM EDRaheem Morin, DO - 05/29/2023 4:20 PM EST Note Date & Type Note Facility 11-05-2023 History of Present illness Narrative Subjective Donovan Jacome is a 88 y.o. male Chief [...] Scribe Attestation By signing my name below, Aleena Hair LPN, Scribe attest that this documentation has been prepared under the direction and in the presence of Aidan Langston MD. Provider Attestation - Scribe documentation All medical record entries made by the Scribe were at my direction and personally dictated by me. I have reviewed the chart and agree that the record accurately reflects my personal performance of the history, physical exam, discussion and plan. documented in this encounter [facility] Work Phone: 11-05-2023 Instructions Dex Crump MA [...] of your visit. documented in this encounter [facility] Work Phone: 08-06-2023 History of Present illness [...] and renal disease with (congestive) heart failure ([facility]) - TSH; Future - Comprehensive metabolic panel; Future Blood pressure at goal. Continue current regimen. Check CMP and TSH. Hyperlipidemia, unspecified hyperlipidemia type - Lipid panel; Future Check lipid panel Stage 4 chronic kidney disease ([facility]) TSH; Future Check TSH and CMP. Type 2 diabetes mellitus without complication, without long-term current use of insulin ([facility]) - Hemoglobin A1c; Future - TSH; Future Check A1c. Hyperparathyroidism ([facility]) Check kidney function test. Malignant melanoma of scalp or neck ([facility]) He does not want to go back to see the specialist. I am not sure what surgery the specialist had planned Longstanding persistent atrial fibrillation ([facility]) Seems to be in sinus rhythm now. Continue Eliquis Paroxysmal atrial fibrillation ([facility]) Microalbuminuric diabetic nephropathy ([facility]) Check labs documented in this encounter [employer] 05-29-2023 History of Present illness Narrative Subjective [...] orders for this visit: Paroxysmal atrial fibrillation ([facility]) - Protime & INR; Future New order for protime and INR given to the patient. I will also fax to the [facility]. Hypertensive 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) - Comprehensive metabolic panel; Future Check CMP. [...] complication, without long-term current use of insulin ([facility]) - Hemoglobin A1c; Future Check A1c Arteriosclerotic vascular disease - Lipid panel; Future Check lipid panel [facility] note No assessment inform ation available [facility] Work Phone: Evaluation note N/A Dept. of Dermato logy Evaluation note Diagnosis Paroxysmal atrial fibrillation (CMS-HCC)- Primary Atrial fibrillation 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) Essential hypertension Unspecified essential hypertension Hypothyroidism, unspecified type Type 2 diabetes mellitus without complication, without long-term current use of insulin (CMS-HCC) Arteriosclerotic vascular disease Generalized and unspecified atherosclerosis [facility] Diagnosis Longstanding persistent atrial fibrillation (CMS-HCC)- Primary [facility] Diagnosis Hypertensive heart and [...] diabetic nephropathy (CMS-HCC) [facility] Diagnosis Type 2 diabetes mellitus without complication, without long-term current use of insulin (CMS-HCC)- Primary 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) documented [facility] Diagnosis Arteriosclerotic cardiovascular disease (ASCVD)- Primary Unspecified cardiovascular disease Essential hypertension Unspecified essential hypertension Mixed hyperlipidemia Ventricular tachycardia (Multi) Paroxysmal ventricular tachycardia ICD (implantable cardioverter-defibrillator) in place Dilated cardiomyopathy (Multi) Other primary cardiomyopathies Ischemic cardiomyopathy Other specified forms of chronic ischemic heart disease documented in this encounter [facility] Work Phone: History of Present illness Narrative* [...] the above we will continue as is. [facility] [employer] DO Work Phone: History of Present illness [...] the above we will continue as is. [facility] [employer] DO Work Phone: History of Present illness [...] the above we suggest continued therapy as beforeCritical access hospital [employer] DO Work Phone: History of Present illness [...] significant cardiac hx with decreased cardiac function [facility] Work Phone: History of Present illness NarrativePatient [...] we believe his cardiac status to be stable.- [facility] DO Work Phone: History of Present illness [...] we suggested continued therapy as before without change.[facility] Hospital[facility] DO Work Phone: InstructionsNot on filedocumented in this encounter [facility] SystemInstructionsNot on filedocumented in this encounter [facility] SystemInstructionsNot on filedocumented in this encounter [facility] SystemInstructionsNot on filedocumented in this encounter [facility] SystemReason for referral (narrative)* Name Reason for referral NA NA Dept. of Dermatology Reason for referral (narrative)* Consultation (Routine) - Authorized Specialty Diagnoses / Procedures Referred By [employer]uv[employer] Referred To Contact Cardiology Diagnoses Arteriosclerotic cardiovascular disease (ASCVD) Procedures Follow Up In Cardiology Aidan Langston MD [address] [place] [address] 2, Travis [address] [place] [id number] Roslyn Mckenzie MD [address] [place] [address] 2, Travis [address] [place] [id number] Referral ID Status Reason Start Date Expiration Date V isits Requested Visits Authorized [id number] Authorized 11/05/2023 11/04/2024 1 1 [facility] Work Phone: Summary Purpose Family History No [...] follow-up of.melanoma of the scalpmelanoma of the scalpDONOVAN JACOME is being seen for a 6 month follow-up of.DONOVAN JACOME is being seen for a 6-7 month follow-up of.DONOVAN JACOME is being seen for a 6-7 month follow-up of. Chief Complaint and Reason for Visit Chief Complaint i42.9 Chief Complaint i42.9 i47.20 [id number] Additional Source Comments (unrecognized sect ion and content) No Status Records FoundNo Status Records FoundNo Status Records FoundNo Status Records FoundNo Status Records FoundNo Status Records FoundNo Status Records FoundNo Status Records FoundNo Status Records FoundNo Status Records Found INFORMATION SOURCE (unrecogn ized section and content) DATE CREATED AUTHOR 08/08/2019 [facility] DATE CREATED AUTHOR AUTHOR'S ORGANIZ ATION 02/27/[address] [facility] DATE CREATED AUTHOR AUTHOR'S ORGANIZ ATION 08/24/2021 [facility] DATE CREATED AUTHOR AUTHOR'S ORGANIZ ATION 10/27/2022 [facility] DATE CREATED AUTHOR AUTHOR'S ORGANIZ ATION 01/13/2023 [facility] DATE CREATED AUTHOR AUTHOR'S ORGANIZ ATION 01/14/2023 [facility] DATE CREATED AUTHOR AUTHOR'S ORGANIZ ATION 08/06/2023 [facility] DATE CREATED AUTHOR AUTHOR'S ORGANIZ ATION 08/07/2023 [facility] DATE CREATED AUTHOR AUTHOR'S ORGANIZ ATION 01/24/2024 [facility] DATE CREATED AUTHOR AUTHOR'S ORGANIZ ATION 02/11/2024 [facility] Care Teams (unrecognized sec tion and content) Team Status: Active Member Role Status Dates Phil Morin DO Primary Care Provider Active Team Status: Inactive Member Role Status Dates Phil Morin DO Primary Care Provider Active Aidan Langston MD Attending Provider Active [employer]atering S[employer] Relationship Specialty Start Date End Date RonnellbretPhil [address], [place] [address] PCP - General Family Medicine 03/07/22 Team Status: Inactive Member Role Status Dates Phil Morin DO Primary Care Provider Active Start: June 28, 2023 End: June 28, 2023 Aidan Langston MD Attending Provider Active Start: June 28, 2023 End: June 28, 2023 Catering Sous Chef Relationship Specialty Start Date End Date RonnelldestinyPhil pool [address] [place] [address] PCP - General Family Medicine 03/07/22 Catering Sous Chef Relationship Specialty Start Date End Date RonnellbretBrayanPhil MartínezDO [address] [place] [address] PCP - General Family Medicine 03/07/22 Catering Sous Chef Relationship Specialty Start Date End Date RonnellbretBrayanPhil MartínezDO [address] [place] [address] PCP - General Family Medicine 03/07/22 Catering Sous Chef Relationship Specialty Start Date End Date Phil Morin DO [address] [place] [address] PCP - General Family Medicine 03/07/22 Team Status: Inactive Member Role Status Dates Phil Morin DO Primary Care Provider Active Start: September 27, 2023 End: September 27, 2023 Aidan Langston MD Attending Provider Active Start: September 27, 2023 End: September 27, 2023 [employer]atering Sous Chef Relationship Specialty Start Date End Date Phil Morin DO [address] [facility] [place] [address] PCP - General 05/06/14 Team Status: Inactive Member Role Status Dates Phil Morin DO Primary Care Provider Active Start: December 27, 2023 End: December 27, 2023 Aidan Langston MD Attending Provider Active Start: December 27, 2023 End: December 27, 2023 Team Status: Inactive Member Role Status Dates Phil RonnellDO bret Primary Care Provider Active Start: February 05, 2024 End: February 05, 2024 Roslyn Mckenzie MD Attending Provider Active Start: February 05, 2024 End: February 05, 2024 Goals (unrecognized section and content) Goals may [...] BE BASED ON THE PRIMARY CLINICAL RECORDS. [facility] [employer] [facility]. provides no warranty or guarantee of the accuracy or completeness of information in this document.
[2024-02-14 10:04] LABS: INR 2.42; Prothrombin Time 23.5 sec (9.0-11.6)
== END 2024-02-14 08:35 | disposition home or self-care (01) ==
LOC: LAB 08:36
PROVIDERS: PCP Family Medicine; Visit Provider Family Medicine
DX: I48.11 Longstanding persistent atrial fibrillation (principal)
CPT/HCPCS: 36415; 85610

== ENCOUNTER 2024-03-17 09:18 | Outpatient (OUT) | payer MEDICARE, SELFPAY ==
[2024-03-17 09:46] LABS: Prothrombin Time 23.3 sec (9.0-11.6)
== END 2024-03-17 09:19 | disposition home or self-care (01) ==
LOC: LAB 09:19
PROVIDERS: PCP Family Medicine; Visit Provider Family Medicine
DX: I48.11 Longstanding persistent atrial fibrillation (principal)
CPT/HCPCS: 36415; 85610

== ENCOUNTER 2024-04-16 09:05 | Outpatient (OUT) | payer MEDICARE, SELFPAY ==
--- OUTSIDE RECORDS SUMMARY | 2024-04-16 09:20 | XMS_ITS | CCD ---
Author Organization [facility] Team Providers Care Biology Instructor Name Role Phone Phil Morin Unavailable Unavailable Unavailable Ronnellloyrn, DO Villarreal Primary Care Provider MD Aidan Langston Attending Provider Karlie Craig Unavailable Unavailable Florentino Kumari Unavailable Unavailable Furlong, DO Phil Primary Care Provider MD Aidan Langston Attending Provider Jaimie Estevez Unavailable Unavailable Furlong, DO Phil Primary Care Provider MD Aidan Langston Attending Provider SUSANNAH, DR JARON Roger Admitting Unavailable KUNS, DR JARNO Roger Consulting Unavailable KUNS, DR JARON Roger Attending Unavailable FURLONG, DR [...] Unavailable FURLONG, DR PHIL Soliz Consulting Unavailable Furlong, DO Villarreal Primary Care Provider [phone] MD Aidan Langston Attending Provider Phil Morin DO Primary Care Provider Corey, DO Villarreal Primary Care Provider MD Aidan Langston Attending Provider Furdestinyng, DO Villarreal Primary Care Provider MD Aidan Langston Attending Provider Phil Morin DO Primary Care Provider Terre Hill, DO Villarreal Primary Care Provider MD Aidan Langston Attending Provider MD Lenny Mckenzi[facility]. [facility] Attending Provider Furlong DO, Phil Adwoa Primary Care Provider ELLIE ROSECarmen Attending Unavailable FURLONG, PHIL ADWOA Primary Care Unavailab le TRABOULSSICHASF Referring Unavailable FURLONG, PHIL ADWOA Primary Care Unavailab le FURLONG, PHIL G Attending Unavailable FURLONG, PHIL [...] Unavailable FURLONG, PHIL G Primary Care Unavailable AIDAN LANGSTON Attending Unavailable FURLONG, PHIL ADWOA Primary Care Unavailab le FURLONG, PHIL ADWOA Primary Care Unavailab le Furlong, Phil Primary Care Unavailable Aidan Langston Admitting Unavail able CarmenuinAidan amaya Attending Unavail able Furlong, Phil Primary Care Unavailable McGuinnAidan Admitting Unavail able McGuinnAidan Attending Unavail able McGuinnAidan Admitting Unavail able Aidan Langston Attending Unavail able Furlong, Phil Primary Care Unavailable Traboulssi, Chasf Admitting Unavailable Traboulssi, Mowillianhaf Attending Unavailable Furlong, Phil Primary Care Unavailable Allergies Allergy Classification Reported Allergen(s) Allergy Type Date of Onset Reaction(s) Facility (20 sources) Aspirin; Translations: [aspirin] Drug Allergy 2 Other (See Comments), GI bleeding -[facility] 250 DO Work Phone: (1 source) No Alert Propensity to adverse reactions to drug 2 [facility] Medications Current Medications Medication Drug Class(es) Dates Sig (Normalized) Sig (Original) Acetaminophen (1 source) Start: 03-04-2024 take 1 tablet by mouth every four hours as needed acetaminophen (Tylenol) tablet 650 mg carvedilol 6.25 mg oral tablet (20 sources) alpha-Adrenergi c Gen, beta-Adrenergic Gen Start: 04-24-2014 End: 11-05-2023 carvediloL (COREG) 6.25 mg tablet 01/24/2022 Active cholecalciferol 1.25 mg oral capsule (1 source) Vitamin D Start: 03-10-2024 take 1 capsule by mouth every week cholecalciferol (VITAMIN D3) 50,000 units capsule Take 1 capsule (50,000 Units total) by mouth once a week. 12 capsule 3 03/10/2024 Active Start: 03-10-2024 take 1 capsule by mo uth every week cholecalciferol (VITAMIN D3) 50,000 units capsule Take 1 capsule (50,000 Units total) by mouth once a week. 12 capsule 3 03/10/2024 Active eplerenone 25 mg oral tablet (20 sources) Aldosterone Antagonist Start: 04-24-2014 End: 02-26-2025 eplerenone (INSPRA) 25 mg tablet 01/22/2022 Active esomeprazole 20 mg delayed release oral capsule (7 sources) Proton Pump Inhibitor esomeprazo le (NexIUM) 20 mg capsule daily as needed. Active fluticasone propionate 0.05 mg/actuat metered dose nasal spray (15 sources) Corticosteroid Start: 07-19-2019 Fluticasone Propionate Active July 19, 2019 1:00am fluticasone prop ionate (FLONASE) 50 mcg/actuation nasal spray fluticasone propionate 50 mcg/actuation nasal spray,suspension Active furosemide 20 mg oral tablet (20 sources) Loop Diuretic Start: 11-16-2020 End: 11-04-2024 take 1 tablet by mouth once daily furosemide (Lasix) 20 mg tablet Indications: Ischemic cardiomyopathy Take 1 tablet (20 mg) by mouth once daily. 90 tablet 3 11/05/2023 11/04/2024 Active lisinopril 2.5 mg oral tablet (20 sources) Angiotensin Converting Enzyme Inhibitor Start: 07-19-2019 End: 11-05-2023 take 1 tablet by mouth once daily lisinopril 2.5 mg tablet Indications: Essential hypertension Take 1 tablet (2.5 mg) by mouth once daily. 90 tablet 3 11/05/2023 Active Ondansetron (1 source) Serotonin-3 Receptor Antagonist Start: 03-04-2024 take 1 tablet by mouth every eight hours as needed ondansetron (Zofran) tablet 4 mg rosuvastatin calcium 20 mg oral tablet (20 sources) HMG-CoA Reductase Inhibitor Start: 07-19-2019 End: 11-05-2023 take 1 tablet by mouth once daily rosuvastatin (Crestor) 20 mg tablet Indications: Arteriosclerotic cardiovascular disease (ASCVD) , Mixed hyperlipidemia Take 1 tablet (20 mg) by mouth once daily. 90 tablet 3 11/05/2023 Active warfarin sodium 5 mg oral tablet (20 sources) Vitamin K Antagonist Start: 04-24-2014 take 1 tablet by mouth once daily warfarin (COUMADIN) 5 mg tablet TAKE 1 TABLET BY MOUTH DAILY OR DIRECTED 90 tablet 3 12/18/2023 Active Start: 04-24-2014 Warfarin Sodiu m 2.5 MG Oral Tablet as directed by PCP Quantity: 0 Refills: 0 Ordered: 24-Apr-2014 DO Start : 24-Apr-2014 Active Completed/Discontinued Medications Medication Drug Class(es) Dates Sig (Normalized) Sig (Original) chlorhexidine gluconate 40 mg/ml medicated liquid soap (1 source) Start: 03-04-2024 End: 03-04-2024 apply 1 dose topically once Topical, Once, On Sun03/04/24 at 1230, For 1 dose, Preprocedure, For pre-op skin preparation Start: 03-04-2024 End: 03-04-2024 apply 1 dose topically once Topical, Once, On 02/18 at 1230, For 1 dose, Preprocedure, For pre-op skin preparation dapagliflozin 5 mg oral tablet (2 sources) [...] 0 Refills: 0 Ordered: 02-May-2021 DO Active mupirocin 0.02 mg/mg topical ointment (1 source) RNA Synthetase Inhibitor Antibacterial Start: 03-04-2024 End: 03-04-2024 1 Application, Topical, Once, On Sun03/04/24 at 1230, For 1 dose, Preprocedure, Apply topically to both nares prior to procedure. Do not initiate until staph screening obtained first. Start: 03-04-2024 End: 03-04-2024 1 Application, Topical, Once , On Sun03/04/24 at 1230, For 1 dose, Preprocedure, Apply topically to both nares prior to procedure. Do not initiate until staph screening obtained first. 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] Onset: 2 03-07-2022 Chronic Cancer of brain and nervous system (12 sources) History of malignant neoplasm of brain; Translations: [Personal history of malignant neoplasm of brain] Episodic Cardiac dysrhythmias (20 sources) Ventricular tachycardia; Translations: [Paroxysmal ventricular tachycardia] Onset: 2 Chronic Chronic kidney disease (18 sources) Chronic kidney disease; Translations: [Chronic kidney disease, unspecified] Onset: 6 03-07-2022 Chronic Conduction disorders (20 sources) Automatic implantable cardiac defibrillator in situ; Translations: [Automatic implantable cardiac defibrillator in situ] Onset: 3 11-05-2023 Chronic Coronary atherosclerosis and other heart disease (20 sources) History of myocardial infarction; Translations: [Old myocardial infarction] Onset: 2 05-29-2023 Chronic Diabetes mellitus with complications (10 sources) Microalbuminuric diabetic nephropathy; Translations: [Type 2 diabetes mellitus with diabetic nephropathy] Onset: 8 03-07-2022 Chronic Diabetes mellitus without complication (13 sources) Type 2 diabetes mellitus without complication; Translations: [Type 2 diabetes mellitus without complications] Onset: 6 05-29-2023 Chronic Disorders of lipid metabolism (20 sources) Hyperlipidemia; Translations: [Other and unspecified hyperlipidemia] Onset: 6 03-07-2022 Chronic Essential hypertension (20 sources) Essential hypertension; Translations: [Unspecified essential hypertension] Onset: 6 05-29-2023 Chronic Glaucoma (7 sources) Glaucoma; Translations: [Unspecified glaucoma] Onset: 6 03-07-2022 Chronic Hypertension with complications and secondary hypertension (13 sources) Hypertensive 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; Translations: [Hypertensive heart and chronic kidney disease with heart failure and stage 1 through stage 4 chronic kidney disease, or unspecified chronic kidney disease] Onset: 2 05-29-2023 Chronic Malignant neoplasm without specification of site (16 sources) Malignant neoplastic disease; Translations: [Other malignant neoplasm without specification of site] Onset: 2 03-07-2022 Chronic Melanomas of skin (20 sources) Malignant melanoma; Translations: [Melanoma of skin, site unspecified] Onset: 2 03-07-2022 Chronic Neoplasms of unspecified nature or uncertain behavior (6 sources) Neoplasm of uncertain behavior of skin Onset: Episodic Nutritional deficiencies (8 sources) Vitamin D deficiency; Translations: [Vitamin D deficiency, unspecified] Onset: 7 03-07-2022 Chronic Osteoporosis (7 sources) Osteoporosis; Translations: [Age-related osteoporosis without current pathological fracture] Onset: 2 03-07-2022 Chronic Other acquired deformities (7 sources) Contracture of joint of left ankle; Translations: [Contracture, left ankle] Onset: 2 03-07-2022 Chronic Other aftercare (12 sources) Drug therapy finding; Translations: [Long-term (current) use of other medications] Episodic Other diseases of kidney and ureters (7 sources) Renal mass; Translations: [Other specified disorders of kidney and ureter] Onset: 6 03-07-2022 Chronic Other ear and sense organ disorders (7 sources) Asymmetrical sensorineural hearing loss; Translations: [Sensorineural hearing loss, bilateral] Onset: 2 03-07-2022 Chronic Other endocrine disorders (8 sources) Hyperparathyroidism; Translations: [Hyperparathyroidism, unspecified] Onset: 2 [...] health status] Onset: 2 Episodic Thyroid disorders (9 sources) Hypothyroidism; Translations: [Hypothyroidism, unspecified] Onset: 8 05-29-2023 Chronic Transient cerebral ischemia (20 sources) Transient cerebral ischemia; Translations: [Unspecified transient cerebral ischemia] Onset: 2 05-29-2023 Chronic Unclassified (2 sources) Ventricular tachycardia, unspecified (Multi); Translations: [Ventricular tachycardia, unspecified (Multi)] Onset: 3 Unclassified (1 source) Longstanding persistent atrial fibrillation; Translations: [Longstanding persistent atrial fibrillation] Onset: 3 Unclassified (1 source) concerns about meds and blood pressure Onset: 4 Unclassified (1 source) Ventricular tachycardia, unspecified; Translations: [Ventricular tachycardia, unspecified] Onset: 4 Past or Other Problems Problem Classification Problem Date Documented Da te Episodic/Chronic Biliary tract disease (15 sources) Biliary colic; Translations: [Calculus of bile duct without cholangitis or cholecystitis without obstruction] Onset: 02-06-2020 07-19-2019 Episodic Cardiac dysrhythmias (15 sources) Palpitations; Translations: [Palpitations] Onset: 03-01-2023 03-01-2023 Episodic Crushing injury or internal injury (7 sources) Perinephric hematoma; Translations: [Minor contusion of unspecified kidney, initial encounter] Onset: 03-07-2022 03-07-2022 Episodic Mood disorders (7 sources) Mood disorders Onset: 05-29-2023 Resolved: 08-06-2023 05-29-2023 Other aftercare (3 sources) Taking high risk medication; Translations: [Other nursing home (current) drug therapy] Onset: 03-01-2023 03-01-2023 Episodic Other gastrointestinal disorders (5 sources) Nontraumatic hemoperitoneum; Translations: [Nontraumatic retroperitoneal hematoma] Onset: 05-29-2015 03-07-2022 Episodic Other gastrointestinal disorders (2 sources) Hemoperitoneum (nontraumatic); Translations: [Nontraumatic retroperitoneal hematoma] Onset: 05-29-2015 03-07-2022 Episodic Other lower respiratory disease (20 sources) Dyspnea on exertion; Translations: [Shortness of breath] Onset: 03-01-2023 05-29-2023 Episodic Other non-epithelial cancer of skin (14 sources) Basal cell carcinoma of skin; Translations: [Basal cell carcinoma of skin of scalp and neck] Onset: 03-07-2022 03-07-2022 Episodic Other nutritional; endocrine; and metabolic disorders (7 sources) Hyperuricemia; Translations: [Hyperuricemia without signs of inflammatory arthritis and tophaceous disease] Onset: 02-08-2017 03-07-2022 Episodic Other skin disorders (7 sources) Actinic keratosis; Translations: [Actinic keratosis] Onset: 03-07-2022 03-07-2022 Episodic Residual codes; unclassified (19 sources) Body mass index 20-24 - normal; Translations: [Body Mass Index between 19-24, adult] Onset: 03-07-2022 03-07-2022 Episodic Residual codes; unclassified (12 sources) History finding; Translations: [Other specified conditions influencing health status] Resolved: 04-24-2014 Episodic Unclassified (12 sources) Never smoked tobacco; Translations: [Never a smoker] Unclassified (3 sources) Onset: 11-05-2023 Resolved: 02-26-2024 11-05-2023 Unclassified (2 sources) Ventricular tachycardia, unspecified (Multi); Translations: [Ventricular tachycardia, unspecified (Multi)] Onset: 11-05-2023 Results Test Name Value Interpretation Reference Range Facility HGB A1C (GLYCO-HGB)on 2023 Glucose [Mass/Vol] 131 mg/dL Normal [facility] Comment on above: Performed By: #### H A1C, 66623-2, 2777-1, 3084-1, 2731-8, 39790-9 #### [facility] ([id number]) [address], [address] [place] [address] HbA1c (Bld) [Mass fraction] 6.2 % High 4.4-5.6 [facility] Comment on above: Result Comment: NOTE ADA Guidelines Result HgbA1c Normal : less than 5.7 % Prediabetes : 5.7 % to 6.4 % Diabetes : > 6.4 % Use with caution in patients with abnormal hemoglobin variants as the half-life of red blood cells and in vivo glycation rates are affected. Performed By: #### H A1C, 35248-1, 2777-1, 3084-1, 2731-8, 55337-2 #### [facility] ([id number]) [address], [address] [place] [address] MAGNESIUMon 03-06-2024 Magnesium [Mass/Vol] 2.3 mg/dL Normal 1.8-2.6 [facility] Comment on above: Performed By: #### H A1C, 61769-7, 2777-1, 3084-1, 2731-8, 93213-6 #### [facility] ([id number]) [address], [address] [place] [address] PHOSPHORUSon 03-06-2024 Phosphate [Mass/Vol] 4.2 mg/dL Normal 2.4-4.9 [facility] Comment on above: Performed By: #### H A1C, 15369-4, 2777-1, 3084-1, 2731-8, 80349-9 #### [facility] ([id number]) [address], [address] [place] [address] Parathyrin.intact [Mass/Vol] on 03-06-2024 PTH INTACT 203 pg/mL High 12-88 [facility] Comment on above: Performed By: #### H A1C, 47048-9, 2777-1, 3084-1, 2731-8, 65790-4 #### [facility] ([id number]) [address], [address] [place] [address] URIC ACIDon 03-06-2024 Urate [Mass/Vol] 8.6 mg/dL High 2.6-7.2 [facility] Comment on above: Performed By: #### H A1C, 27306-7, 2777-1, 3084-1, 2731-8, 92468-5 #### [facility] ([id number]) [address], [address] [place] [address] Vitamin D+Metabolites [Mass/ Vol]on 03-06-2024 VITAMIN D 25 HYD TOT 27.9 ng/mL Low 30-100 [facility] Comment on above: Result Comment: Vitamin D status 25 [place] Vitamin D Deficiency <20 ng/mL Insufficiency 20-29 ng/mL Sufficiency 30-100 ng/mL Toxicity >100 ng/mL NOTE: A pediatric reference range has not been established by the label rewinder of this kit. The [place] [employer] recommends a Vitamin D level of = or >20ng/mL in infants and children. Performed By: #### H A1C, 66138-8, 2777-1, 3084-1, 2731-8, 91339-3 #### [facility] ([id number]) [address], [address] [place] [address] Basic metabolic 2000 panelon 03-04-2024 Anion gap [Moles/Vol] 13 mmol/L 10 - 20 mmol/L [facility] Calcium [Mass/Vol] 9.2 mg/dL 8.6 - 10. 3 mg/dL [facility] Chloride [Moles/Vol] 106 mmol/L 98 - 107 mmol/L [facility] CO2 [Moles/Vol] 25 mmol/L 21 - 32 mmol/L [facility] Creatinine [Mass/Vol] 2.31 mg/dL High 0.50 - 1.30 mg/dL [facility] GFR/1.73 sq M.predicted among non-blacks MDRD (S/P/Bld) [Vol rate/Area] 26 mL/min/{1.73_m2} Low - PINF [facility] Comment on above: Calculations of katey mated GFR are performed using the 2020 CKD-EPI Study Refit equation without the race variable for the IDMS-Traceable creatinine methods. https://jasn.asnjournals.org/content//ASN.32921637 88 Glucose [Mass/Vol] 106 mg/dL High 74 - 99 mg/dL [facility] Interpretation and review of laboratory results Abnormal [facility] Potassium [Moles/Vol] 4.1 mmol/L 3.5 - 5.3 mmol/L [facility] Sodium [Moles/Vol] 140 mmol/L 136 - 145 mmol/L [facility] Urea nitrogen [Mass/Vol] 45 mg/dL High 6 - 23 mg/dL [facility] Anion gap [Moles/Vol] 13 mmol/L Normal 10-20 [facility] Comment on above: Performed By: #### 2 4321-2 #### CRYSTAL JURADO ([id number]) [facility] ([facility]) [address] [place] [address] Calcium [Mass/Vol] 9.2 mg/dL Normal 8.6-10.3 [facility] Comment on above: Performed By: #### 2 4321-2 #### MARCELOIBELIKRYSTAL JURADO ([id number]) [facility] ([facility]) [address] [place] [address] Chloride [Moles/Vol] 106 mmol/L Normal 98-107 [facility] Comment on above: Performed By: #### 2 4321-2 #### CRYSTAL JURADO ([id number]) [facility] ([facility]) [address] [place] [address] CO2 [Moles/Vol] 25 mmol/L Normal 21-32 [facility] Comment on above: Performed By: #### 2 4321-2 #### CRYSTAL JURADO ([id number]) [facility] ([facility]) [address] [place] [address] Creatinine [Mass/Vol] 2.31 mg/dL High 0.50-1.30 [facility] Comment on above: Performed By: #### 2 4321-2 #### CRYSTAL JURADO ([id number]) [facility] ([facility]) [address] [place] [address] Glomerular filtration rate/1.73 sq M.predicted 26 mL/min/1.73m*2 Low >60 [facility] Comment on above: Result Comment: Calc ulations of estimated GFR are performed using the 2020 CKD-EPI Study Refit equation without the race variable for the IDMS-Traceable creatinine methods. https://jasn.asnjournals.org/content//ASN.04939013 88 Performed By: #### 2 4321-2 #### CRYSTAL JURADO ([id number]) [facility] ([facility]) [address] [place] [address] Glucose [Mass/Vol] 106 mg/dL High 74-99 [facility] Comment on above: Performed By: #### 2 4321-2 #### CRYSTAL JURADO ([id number]) [facility] ([facility]) [address] [place] [address] Potassium [Moles/Vol] 4.1 mmol/L Normal 3.5-5.3 [facility] Comment on above: Performed By: #### 2 4321-2 #### CRYSTAL JURADO ([id number]) [facility] ([facility]) [address] [place] [address]65 Sodium [Moles/Vol] 140 mmol/L Normal 136-145 [facility] Comment on above: Performed By: #### 2 4321-2 #### CRYSTAL JURADO ([id number]) [facility] ([facility]) [address] [place] [address]6046 Urea nitrogen [Mass/Vol] 45 mg/dL High 6-23 [facility] Comment on above: Performed By: #### 2 4321-2 #### CRYSTAL JURADO ([id number]) [facility] ([facility]) [address] [place] [address]85 CBC panel Auto (Bld)on 03-04 Erythrocyte distribution width (RBC) [Ratio] 14.9 % High 11.5 - 14.5 % [facility] Hematocrit (Bld) [Volume fraction] 38.8 % Low 41.0 - 52.0 % [facility] Hemoglobin (Bld) [Mass/Vol] 12.6 g/dL Low 13.5 - 17.5 g/dL [facility] Interpretation and review of laboratory results Abnormal [facility] MCH (RBC) [Entitic mass] 28.7 pg 26.0 - 34.0 pg [facility] MCHC (RBC) [Mass/Vol] 32.5 g/dL 32.0 - 36.0 g/dL [facility] MCV (RBC) [Entitic vol] 88 fL 80 - 100 fL [facility] Nucleated RBC/100 WBC (Bld) [Ratio] 0.0 % [facility] Platelets (Bld) [#/Vol] 185 10*3/uL [facility] RBC (Bld) [#/Vol] 4.39 10*6/uL Low [facility] WBC (Bld) [#/Vol] 7.3 10*3/uL [facility] Erythrocyte distribution width (RBC) [Ratio] 14.9 % High 11.5-14.5 [facility] Comment on above: Performed By: #### 5 8410-2 #### CRYSTAL JURADO ([id number]) [facility] ([facility]) [address] [place] [address] Hematocrit (Bld) [Volume fraction] 38.8 % Low 41.0-52.0 [facility] Comment on above: Performed By: #### 5 8410-2 #### CRYSTAL JURADO ([id number]) [facility] ([facility]) [address] [place] [address] Hemoglobin (Bld) [Mass/Vol] 12.6 g/dL Low 13.5-17.5 [facility] Comment on above: Performed By: #### 5 8410-2 #### CRYSTAL JURADO ([id number]) [facility] ([facility]) [address] [place] [address] 02491 MCH (RBC) [Entitic mass] 28.7 pg Normal 26.0-34.0 [facility] Comment on above: Performed By: #### 5 8410-2 #### CRYSTAL JURADO ([id number]) [facility] ([facility]) [address] [place] [address]805 MCHC (RBC) [Mass/Vol] 32.5 g/dL Normal 32.0-36.0 [facility] Comment on above: Performed By: #### 5 8410-2 #### CRYSTAL JURADO ([id number]) [facility] ([facility]) [address] [place] [address]237 MCV (RBC) [Entitic vol] 88 fL Normal 80-100 [facility] Comment on above: Performed By: #### 5 8410-2 #### CRYSTAL JURADO ([id number]) [facility] ([facility]) [address] [place] [address] 49458 Nucleated RBC/100 WBC (Bld) [Ratio] 0.0 /100 WBCs Normal 0.0-0.0 [facility] Comment on above: Performed By: #### 5 8410-2 #### CRYSTAL JURADO ([id number]) [facility] ([facility]) [address] [place] [address] 48187 Platelets (Bld) [#/Vol] 185 x10*3/uL Normal 150-450 [facility] Comment on above: Performed By: #### 5 8410-2 #### CRYSTAL JURADO ([id number]) [facility] ([facility]) [address] [place] [address] 42274 RBC (Bld) [#/Vol] 4.39 x10*6/uL Low 4.50-5.90 [facility] Comment on above: Performed By: #### 5 8410-2 #### CRYSTAL JURADO ([id number]) [facility] ([facility]) [address] [place] [address] 59477 WBC (Bld) [#/Vol] 7.3 x10*3/uL Normal 4.4-11.3 [facility] Comment on above: Performed By: #### 5 8410-2 #### CRYSTAL JURADO ([id number]) [facility] ([facility]) [address] [place] [address] 91662 ECG 12-LEADon 03-04-2024 ECG 12-LEAD Ventricular Rate 73 Atrial Rate 71 QRS Duration 142 Q-T Interval 588 QTC Calculation(Bazett) 647 R Mosca -27 T Mosca 76 QRS Count 12 Q Onset 225 T Offset 519 QTC Fredericia 628 Diagnosis Atrial-paced rhythm Right bundle branch block 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) T wave abnormality, consider lateral ischemia Abnormal ECG When compared with ECG of 30-APR-2014 08:20, Right bundle branch block is now Present Confirmed by Abraham Lewis ([id number]) on 03/05/2024 11:49:54 AM Normal [facility] PT and aPTT panel Coag (PPP) on 03-04-2024 aPTT Coag (PPP) [Time] 42 s High [facility] INR Coag (PPP) [Relative time] 2.3 {INR} High 0.9 - 1.1 [facility] Interpretation and review of laboratory results Abnormal [facility] PT Coag (PPP) [Time] 26.7 s High [facility] The APTT is no longe r used for monitoring Unfractionated Heparin Therapy. For monitoring Heparin Therapy, use the Heparin Assay. [facility] aPTT Coag (PPP) [Time] 42 s High 27-38 [facility] Comment on above: Order Comment: The A PTT is no longer used for monitoring Unfractionated Heparin Therapy. For monitoring Heparin Therapy, use the Heparin Assay. Performed By: #### 3 4529-8 #### CRYSTAL JURADO ([id number]) [facility] (EM) [address] [place] [address] INR Coag (PPP) [Relative time] 2.3 High 0.9-1.1 [facility] Comment on above: Order Comment: The A PTT is no longer used for monitoring Unfractionated Heparin Therapy. For monitoring Heparin Therapy, use the Heparin Assay. Performed By: #### 3 4529-8 #### CRYSTAL JURADO ([id number]) [facility] (EM) [address] [place] [address] PT Coag (PPP) [Time] 26.7 s High 9.8-12.8 [facility] Comment on above: Order Comment: The A PTT is no longer used for monitoring Unfractionated Heparin Therapy. For monitoring Heparin Therapy, use the Heparin Assay. Performed By: #### 3 4529-8 #### CRYSTAL JURADO ([id number]) [facility] (EMC) [address] [place] [address] Blood type and Indirect anti body screen panel (Bld)on 02-26-2024 ABO group Nom (Bld) O [facility] Blood group antibody screen Ql Negative [facility] D Ag Ql (Bld) Positive [facility] Comment on above: 2nd ABO test require d. Order and Collect VERAB [facility] ABO group Nom (Bld) O Normal [facility] Comment on above: Order Comment: Speci men for compatibility testing requires full first and last name, MRN, , date, time of collection, and chief controller tower/rubbish collector's signature on tube(s) or it will be rejected. Please collect 1 lavender top-KEDTA OR 1 pink top-KEDTA and sign, date and time with the patient's full first and last name, MRN and . Performed By: #### 3 4532-2 #### CRYSTAL JURADO ([id number]) [facility] [address] [place] [address] Blood group antibody screen Ql Negative [facility] Comment on above: Order Comment: Speci men for compatibility testing requires full first and last name, MRN, , date, time of collection, and chief controller tower/rubbish collector's signature on tube(s) or it will be rejected. Please collect 1 lavender top-KEDTA OR 1 pink top-KEDTA and sign, date and time with the patient's full first and last name, MRN and . Performed By: #### 3 4532-2 #### CRYSTAL [facility] ([id number]) [facility] [address] [place] [address] D Ag Ql (Bld) Positive [facility] Comment on above: Order Comment: Speci men for compatibility testing requires full first and last name, MRN, , date, time of collection, and chief controller tower/rubbish collector's signature on tube(s) or it will be rejected. Please collect 1 lavender top-KEDTA OR 1 pink top-KEDTA and sign, date and time with the patient's full first and last name, MRN and . Result Comment: 2nd ABO test required. Order and Collect VERAB Performed By: #### 3 4532-2 #### CRYSTAL JURADO ([id number]) [facility] ([facility]) [address] [place] [address] ECG 12 Leadon 02-26-2024 Atrial paced, ventricular sensed rhythm, right bundle branch block, left anterior fascicular block, HR 75bpm [facility] Work Phone: COMPREHENSIVE METABOLIC PANE Donato 08-06-2023 Albumin [Mass/Vol] 4.2 g/dL Normal 3.2-5.3 [facility] Comment on above: Performed By: #### C RHETT, 36066-5, 3016-3 #### [facility] ([id number]) [address], [address] [place] [address] ALP [Catalytic activity/Vol] 77 U/L Normal 39-130 [facility] Comment on above: Performed By: #### C RHETT, 97032-9, 3016-3 #### [facility] ([id number]) [address], [address] [place] [address] ALT [Catalytic activity/Vol] 11 U/L Normal 0-40 [facility] Comment on above: Performed By: #### C RHETT, 16033-9, 6-3 #### [facility] ([id number]) [address], [address] [place] [address] Anion gap [Moles/Vol] 8 mmol/L Normal 5-15 [facility] Comment on above: Performed By: #### C RHETT, 46048-2, 3016-3 #### [facility] ([id number]) [address], [address] [place] [address] AST [Catalytic activity/Vol] 19 U/L Normal 0-41 [facility] Comment on above: Performed By: #### Gorge DELANEY, 51346-4, 3015-3 #### [facility] ([id number]) [address], [address] [place] [address] Bilirubin [Mass/Vol] 0.5 mg/dL Normal 0.3-1.2 [facility] Comment on above: Performed By: #### Gorge DELANEY, 69734-0, 3015-3 #### [facility] ([id number]) [address], [address] [place] [address] Calcium [Mass/Vol] 9.1 mg/dL Normal 8.5-10.5 [facility] Comment on above: Performed By: #### Gorge DELANEY, 66183-5, 3015- #### [facility] ([id number]) [address], [address] [place] [address] Chloride [Moles/Vol] 106 mmol/L Normal 98-109 [facility] Comment on above: Performed By: #### Gorge DELANEY, 03250-3, 3015- #### [facility] ([id number]) [address], [address] [place] [address] CO2 [Moles/Vol] 26 mmol/L Normal 22-32 [facility] Comment on above: Performed By: #### Gorge DELANEY, 08153-8, 3015- #### [facility] ([id number]) [address], [address] [place] [address] Creatinine [Mass/Vol] 2.12 mg/dL High 0.60-1.30 [facility] Comment on above: Result Comment: METH OD TRACEABLE TO IDMS STANDARD Performed By: #### Gorge DELANEY, 59404-7, 3015-3 #### [facility] ([id number]) [address], [address] [place] [address] GFR/1.73 sq M.predicted among non-blacks MDRD (S/P/Bld) [Vol rate/Area] 29 mL/min/{1.73_m2} Low >59 [facility] Comment on above: Result Comment: Reported eGFR is based on the CKD-EPI 2020 equation that does not use a race coefficient. Performed By: #### C RHETT, 93308-6, 3015-3 #### [facility] ([id number]) [address], [address] [place] [address] Glucose [Mass/Vol] 113 mg/dL High 65-99 [facility] Comment on above: Performed By: #### Gorge DELANEY, 16094-9, 3015-3 #### [facility] ([id number]) [address], [address] [place] [address] Potassium [Moles/Vol] 4.8 mmol/L Normal 3.5-5.0 [facility] Comment on above: Performed By: #### Gorge DELANEY, 54792-2, 3015-3 #### [facility] ([id number]) [address], [address] [place] [address] Protein [Mass/Vol] 7.0 g/dL Normal 6.0-8.0 [facility] Comment on above: Performed By: #### Gorge DELANEY, 34514-8, 3015-3 #### [facility] ([id number]) [address], [address] [place] [address] Sodium [Moles/Vol] 140 mmol/L Normal 134-146 [facility] Comment on above: Performed By: #### Gorge DELANEY, 51273-6, 3015-3 #### [facility] ([id number]) [address], [address] [place] [address] Urea nitrogen [Mass/Vol] 24 mg/dL Normal 5-27 [facility] Comment on above: Performed By: #### Gorge DELANEY, 28896-0, 3015-3 #### [facility] ([id number]) [address], [address] [place] [address] Comprehensive metabolic pane donato 08-06-2023 Albumin [Mass/Vol] 4.2 g/dL 3.2 - 5.3 g/dL [facility] ALP [Catalytic activity/Vol] 77 U/L 39 - 130 U/L [facility] ALT No additional P-5'-P [Catalytic activity/Vol] 11 U/L 0 - 40 U/L [facility] Anion gap [Moles/Vol] 8 mmol/L 5 - 15 mmol/L [facility] AST [Catalytic activity/Vol] 19 U/L 0 - 41 U/L [facility] Bilirubin [Mass/Vol] 0.5 mg/dL 0.3 - 1.2 mg/dL [facility] Calcium [Mass/Vol] 9.1 mg/dL 8.5 - 10. 5 mg/dL [facility] Chloride [Moles/Vol] 106 mmol/L 98 - 109 mmol/L [facility] CO2 [Moles/Vol] 26 mmol/L 22 - 32 mmol/L [facility] Creatinine [Mass/Vol] 2.12 mg/dL High 0.60 - 1.30 mg/dL [facility] Comment on above: METHOD TRACEABLE TO [facility] STANDARD eGFR (CKD-EPI)non-race dependent 29 Low - PINF [facility] Comment on above: Reported eGFR is based on the CKD-EPI 2020 equation that does not use a race coefficient. Glucose [Mass/Vol] 113 mg/dL High 65 - 99 mg/dL [facility] Potassium [Moles/Vol] 4.8 mmol/L 3.5 - 5.0 mmol/L [facility] Protein [Mass/Vol] 7.0 g/dL 6.0 - 8.0 g/dL [facility] Sodium [Moles/Vol] 140 mmol/L 134 - 146 mmol/L [facility] Urea nitrogen [Mass/Vol] 24 mg/dL 5 - 27 mg/dL [facility] HGB A1C (GLYCO-HGB)on 2023 Glucose [Mass/Vol] 140 mg/dL Normal [facility] Comment on above: Performed By: #### C , 23060-0, 3016-3 #### [facility] ([id number]) [address], [address] [place] [address] HbA1c (Bld) [Mass fraction] 6.5 % High 4.4-5.6 [facility] Comment on above: Result Comment: NOTE ADA Guidelines Result HgbA1c Normal : less than 5.7 % Prediabetes : 5.7 % to 6.4 % Diabetes : > 6.4 % Use with caution in patients with abnormal hemoglobin variants as the half-life of red blood cells and in vivo glycation rates are affected. Performed By: #### Gorge , 47414-8, 3016-3 #### [facility] ([id number]) [address] [place] [address], [address] [place] [address] Hemoglobin A1con 08-06-2023 Average glucose Estimated from glycated hemoglobin (Bld) [Mass/Vol] 140 mg/dL [facility] HbA1c (Bld) [Mass fraction] 6.5 % High 4.4 - 5.6 % [facility] Comment on above: NOTE ADA Guidelines Result HgbA1c Normal : less than 5.7 % Prediabetes : 5.7 % to 6.4 % Diabetes : > 6.4 % Use with caution in patients with abnormal hemoglobin variants as the half-life of red blood cells and in vivo glycation rates are affected. Interpretation and review of laboratory results Abnormal [facility] Lipid 1996 panelon 4 Cholesterol [Mass/Vol] 91 mg/dL Low 150 - 200 mg/dL [facility] Cholesterol in HDL [Mass/Vol] 39 mg/dL Low 39 - PINF mg/dL [facility] Comment on above: HDL <40 mg/dL - High Risk HDL > or = 40mg/dL- Desirable HDL >60 mg/dL - Negative Risk Cholesterol in LDL [Mass/Vol] 18 mg/dL NINF - 130 mg/dL [facility] Comment on above: LDL <100 mg/dL - Desirable LDL >160 mg/dL - High Risk Cholesterol in VLDL [Mass/Vol] 34 mg/dL High 0 - 30 mg/dL [facility] Cholesterol.total/C holesterol in HDL [Mass ratio] 2.3 {ratio} 1.0 - 5.0 [facility] Triglyceride [Mass/Vol] 168 mg/dL High 27 - 150 mg/dL [facility] Cholesterol [Mass/Vol] 91 mg/dL Low 150-200 [facility] Comment on above: Performed By: #### Gorge DELANEY, 38669-6, 3016-3 #### [facility] ([id number]) [address], [address] [place] [address] Cholesterol in HDL [Mass/Vol] 39 mg/dL Low >39 [facility] Comment on above: Result Comment: HDL <40 mg/dL - High Risk HDL > or = 40mg/dL- Desirable HDL >60 mg/dL - Negative Risk Performed By: ###[place], [address]-5, 3016-3 #### [facility] ([id number]) [address], [address] [place] [address] Cholesterol in LDL [Mass/Vol] 18 mg/dL Normal <130 [facility] Comment on above: Result Comment: LDL <100 mg/dL - Desirable LDL >160 mg/dL - High Risk Performed By: #### Gorge DELANEY, 18794-3, 3016-3 #### [facility] ([id number]) [address], [address] [place] [address] Cholesterol in VLDL [Mass/Vol] 34 mg/dL High 0-30 [facility] Comment on above: Performed By: #### Gorge DELANEY, 70148-9, 6-3 #### [facility] ([id number]) [address], [address] [place] [address] CHOLESTEROL:HDL 2.3 Normal 1.0-5.0 [facility] Comment on above: Performed By: #### Gorge DELANEY, 60407-6, 6-3 #### [facility] ([id number]) [address], [address] [place] [address] Triglyceride [Mass/Vol] 168 mg/dL High 27-150 [facility] Comment on above: Performed By: #### Gorge DELANEY, 92703-5, 6-3 #### [facility] ([id number]) [address], [address] [place] [address] No Panel Informationon 08-05 Interpretation and review of laboratory results Abnormal [facility] TSHon 08-06-2023 TSH Qn 3.12 m[IU]/L [facility] TSH Qnon 08-06-2023 [facility] TSH 3.12 uIU/mL Normal 0.49-4.67 [facility] Comment on above: Performed By: #### Gorge DELANEY, 37781-6, 3016-3 #### [facility] ([id number]) [address], [address] [place] [address] Protime & INRon 07-18-2023 External Inr 2.02 [facility] External Protime 20.6 [facility] Office Visit (Cardiology)on 01-12-2023 Follow-up visit Diagnoses/Problems Assessed Cardiomyopathy (425.4) (I42.9) 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,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) High risk medication use (V58.69) (Z79.899) Essential hypertension (401.9) (I10) 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 Prescriptions will not be filled unless you are compliant with your follow up appointments or have a follow up appointment scheduled as per instruction of your physician. Refills should be requested at the time of your visit. Pacemaker/Defibrillato r follow up per routine Follow up in [...] negative for complaint. Vitals Vital Signs Recorded: 14Onn5128 02:17PM Heart Rate72, Apical Kexjrzbg105, RUE, Sitting Jhxkjxbof31, RUE, Sitting Height5 ft 9 in Afseqt521 lb BMI Bnmxjhedih11.78 kg/m2 BSA Calculated1.88 Tobacco Useb) No Falls [...] Jan 13 2023 2:45PM EST (Author) Normal [employer] Tobacco Screening.on 023 Fall risk assessment a) No falls within the last year -[facility] [address] DO Work Phone: Tobacco use status CPHS b) No -[facility] 250 DO Work Phone: PROTIMEon 10-17-2022 INR Coag (PPP) [Relative time] 2.38 {INR} Normal [facility] Comment on above: Performed By: #### P T #### [facility] [address] [place] [address] Dr. Sariah Boyle INR GUIDELINES SEE BELOW Normal [facility] Comment on above: Result Comment: NHUNG RED INR: 2.0 - 3.0 CONDITIONS NOT LISTED BELOW 2.5 - 3.5 FOR PROSTHETIC HEART VALVE REPLACEMENT 2.5 - 3.5 RECURRENT THROMBOSIS Performed By: #### P T #### [facility] [address] [address] [address] Sariah Boyle PT Coag (PPP) [Time] 24.0 s Critically high 9.0-11.6 [facility] Comment on above: Performed By: #### P T #### [facility] [address] [address] [address] Sariah Boyle PROTIMEon 09-15-2022 INR Coag (PPP) [Relative time] 2.18 {INR} Normal [facility] Comment on above: Performed By: #### P T #### [facility] [address] [address] [address] Sariah Boyle INR GUIDELINES SEE BELOW Normal [facility] Comment on above: Result Comment: NHUNG RED INR: 2.0 - 3.0 CONDITIONS NOT LISTED BELOW 2.5 - 3.5 FOR PROSTHETIC HEART VALVE REPLACEMENT 2.5 - 3.5 RECURRENT THROMBOSIS Performed By: #### P T #### [facility] [address] [place] [address] Dr. Sariah Boyle PT Coag (PPP) [Time] 22.1 s Critically high 9.0-11.6 [facility] Comment on above: Performed By: #### P T #### [facility] [address] [place] [address] Dr. Sariah Boyle PROTIMEon 08-15-2022 INR Coag (PPP) [Relative time] 2.44 {INR} Normal [facility] Comment on above: Performed By: #### P T #### [facility] [address] [place] [address] Dr. Sariah Boyle INR GUIDELINES SEE BELOW Normal [facility] Comment on above: Result Comment: NHUNG RED INR: 2.0 - 3.0 CONDITIONS NOT LISTED BELOW 2.5 - 3.5 FOR PROSTHETIC HEART VALVE REPLACEMENT 2.5 - 3.5 RECURRENT THROMBOSIS Performed By: #### P T #### [facility] [address] [place] [address] Dr. Sariah Boyle PT Coag (PPP) [Time] 24.6 s Critically high 9.0-11.6 [facility] Comment on above: Performed By: #### P T #### [facility] [address] [place] [address] Dr. Sariah Boyle PROTIMEon 07-18-2022 INR Coag (PPP) [Relative time] 2.33 {INR} Normal [facility] Comment on above: Performed By: #### P T #### [facility] [address] [place] [address] Dr. Sariah Boyle INR GUIDELINES SEE BELOW Normal [facility] Comment on above: Result Comment: NHUNG RED INR: 2.0 - 3.0 CONDITIONS NOT LISTED BELOW 2.5 - 3.5 FOR PROSTHETIC HEART VALVE REPLACEMENT 2.5 - 3.5 RECURRENT THROMBOSIS Performed By: #### P T #### [facility] [address] [place], [place] [address] Dr. Sariah Boyle PT Coag (PPP) [Time] 23.5 s Critically high 9.0-11.6 [facility] Comment on above: Performed By: #### P T #### [facility] [address] [place], [place] [address] Dr. 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 Vitals Vital Signs Recorded: 80Sci5379 03:41PM Heart Rate80, L Radial Jetzfnsv982, LUE, Sitting Opspaunut18, LUE, Sitting Height5 ft 9 in Rnlnes960 lb BMI Qgdjoeunye98.92 kg/m2 BSA Calculated1.89 Tobacco Useb) No PHQ-2 [...] Electronically si (more content not included)... Normal [employer] Tobacco Screening.on 023 Adult depression screening assessment No [facility] [employer] 250 DO Work Phone: Fall risk assessment a) No falls within the last year [facility] [employer] 250 DO Work Phone: Tobacco use status CPHS b) No [facility] 250 DO Work Phone: PROTIMEon 07-04-2022 INR Coag (PPP) [Relative time] 1.91 {INR} Normal [facility] Comment on above: Performed By: #### P T #### [facility] [address] [address] [address] Sariah Boyle INR GUIDELINES SEE BELOW Normal [facility] Comment on above: Result Comment: NHUNG RED INR: 2.0 - 3.0 CONDITIONS NOT LISTED BELOW 2.5 - 3.5 FOR PROSTHETIC HEART VALVE REPLACEMENT 2.5 - 3.5 RECURRENT THROMBOSIS Performed By: #### P T #### [facility] [address] [address] [address] Sariah Boyle PT Coag (PPP) [Time] 19.5 s Critically high 9.0-11.6 [facility] Comment on above: Performed By: #### P T #### [facility] [address] [place] [address] Dr. Sariah Boyle No Panel Informationon 06-[address] [address] DO Work Phone: PROTIMEon 06-07-2022 INR Coag (PPP) [Relative time] 1.44 {INR} Normal [facility] Comment on above: Performed By: #### P T #### [facility] [address] [place] [address] Dr. Sariah Boyle INR GUIDELINES SEE BELOW Normal [facility] Comment on above: Result Comment: NHUNG RED INR: 2.0 - 3.0 CONDITIONS NOT LISTED BELOW 2.5 - 3.5 FOR PROSTHETIC HEART VALVE REPLACEMENT 2.5 - 3.5 RECURRENT THROMBOSIS Performed By: #### P T #### [facility] [address] [place] [address] Dr. Sariah Boyle PT Coag (PPP) [Time] 15.0 s Critically high 9.0-11.6 [facility] Comment on above: Performed By: #### P T #### [facility] [address] [place] [address] Dr. Sariah Boyle No Panel Informationon 06-[address] [address] DO Work Phone: PROTIMEon 05-08-2022 INR Coag (PPP) [Relative time] 2.06 {INR} Normal [facility] Comment on above: Performed By: #### P T #### [facility] [address] [place] [address] Dr. Sariah Boyle INR GUIDELINES SEE BELOW Normal [facility] Comment on above: Result Comment: NHUNG RED INR: 2.0 - 3.0 CONDITIONS NOT LISTED BELOW 2.5 - 3.5 FOR PROSTHETIC HEART VALVE REPLACEMENT 2.5 - 3.5 RECURRENT THROMBOSIS Performed By: #### P T #### [facility] [address] [place] [address] Dr. Sariah Boyle PT Coag (PPP) [Time] 21.2 s Critically high 9.0-11.6 [facility] Comment on above: Performed By: #### P T #### [facility] [address] [address] [address] Sariah Boyle PROTIMEon 04-07-2022 INR Coag (PPP) [Relative time] 3.37 {INR} Normal [facility] Comment on above: Performed By: #### P T #### [facility] [address] [address] [address] Sariah Boyle INR GUIDELINES SEE BELOW Normal [facility] Comment on above: Result Comment: NHUNG RED INR: 2.0 - 3.0 CONDITIONS NOT LISTED BELOW 2.5 - 3.5 FOR PROSTHETIC HEART VALVE REPLACEMENT 2.5 - 3.5 RECURRENT THROMBOSIS Performed By: #### P T #### [facility] [address] [address] [address] Sariah Boyle PT Coag (PPP) [Time] 33.6 s Critically high 9.0-11.6 [facility] Comment on above: Performed By: #### P T #### [facility] [address] [address] [address] Sariah Boyle Initial Visit (Otolaryngolog y)on [...] melanoma of the scalp History of Present Rafwntm75-dabe-noy man referred by Dr. 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 VOICE: normal RESPIRATION: Breathing comfortably, no stridor. CV: No clubbing/cyanosis/kayla a in hands. EYES: EOM Intact, sclera normal. [...] the interior turbinates. No lesions noted. ORAL CAVITY/OROPHARYNX/LIPS : Normal mucous membranes, normal floor of mouth/tongue/OP, [...] Apr 19 2022 6:13AM EST (Author) Normal [employer] Tobacco Screening.on 022 Fall risk assessment a) No falls within the last year [facility] Work Phone: Tobacco use status CP b) No [facility] Work Phone: No Panel Informationon 03-23 [facility] Work Phone: PROTIMEon 03-06-2022 INR Coag (PPP) [Relative time] 2.08 {INR} Normal [facility] Comment on above: Performed By: #### P T #### [facility] [address] [place] [address] Dr. Sariah Boyle INR GUIDELINES SEE BELOW Normal [facility] Comment on above: Result Comment: NHUNG RED INR: 2.0 - 3.0 CONDITIONS NOT LISTED BELOW 2.5 - 3.5 FOR PROSTHETIC HEART VALVE REPLACEMENT 2.5 - 3.5 RECURRENT THROMBOSIS Performed By: #### P T #### [facility] [address] [place], [place] [address] Dr. Sariah Boyle PT Coag (PPP) [Time] 21.4 s Critically high 9.0-11.6 [facility] Comment on above: Performed By: #### P T #### [facility] [address] [place] [address] Dr. Sariah Boyle PROTIMEon 02-03-2022 INR Coag (PPP) [Relative time] 1.83 {INR} Normal [facility] Comment on above: Performed By: #### P T #### [facility] [address] [place] [address] Dr. Sariah Boyle INR GUIDELINES SEE BELOW Normal [facility] Comment on above: Result Comment: NHUNG RED INR: 2.0 - 3.0 CONDITIONS NOT LISTED BELOW 2.5 - 3.5 FOR PROSTHETIC HEART VALVE REPLACEMENT 2.5 - 3.5 RECURRENT THROMBOSIS Performed By: #### P T #### [facility] [address] [place] [address] Dr. Sariah Boyle PT Coag (PPP) [Time] 19.0 s Critically high 9.0-11.6 [facility] Comment on above: Performed By: #### P T #### [facility] [address] [address] [address] Sariah Boyle PROTIMEon 01-02-2022 INR Coag (PPP) [Relative time] 2.05 {INR} Normal [facility] Comment on above: Performed By: #### P T #### [facility] [address] [place] [address] Dr. Sariah Boyle INR GUIDELINES SEE BELOW Normal [facility] Comment on above: Result Comment: NHUNG RED INR: 2.0 - 3.0 CONDITIONS NOT LISTED BELOW 2.5 - 3.5 FOR PROSTHETIC HEART VALVE REPLACEMENT 2.5 - 3.5 RECURRENT THROMBOSIS Performed By: #### P T #### [facility] [address] [place] [address] Dr. Sariah Boyle PT Coag (PPP) [Time] 21.1 s Critically high 9.0-11.6 [facility] Comment on above: Performed By: #### P T #### [facility] [address] [place] [address] Dr. Sariah Boyle Tobacco Screening.on 022 Adult depression screening assessment No [facility] 250 DO Work Phone: Fall risk assessment a) No falls within the last year [facility] 250 DO Work Phone: Tobacco use status [facility] b) No [facility] 250 DO Work Phone: PROTIMEon 12-02-2021 INR Coag (PPP) [Relative time] 2.22 {INR} Normal [facility] Comment on above: Performed By: #### P T #### [facility] [address] [place] [address] Dr. Sariah Boyle INR GUIDELINES SEE BELOW Normal [facility] Comment on above: Result Comment: NHUNG RED INR: 2.0 - 3.0 CONDITIONS NOT LISTED BELOW 2.5 - 3.5 FOR PROSTHETIC HEART VALVE REPLACEMENT 2.5 - 3.5 RECURRENT THROMBOSIS Performed By: #### P T #### [facility] [address] [address] [address] Sariah Boyle PT Coag (PPP) [Time] 22.8 s Critically high 9.0-11.6 [facility] Comment on above: Performed By: #### P T #### [facility] [address] [place] [address] Dr. Sariah Boyle PROTIMEon 11-18-2021 INR Coag (PPP) [Relative time] 1.95 {INR} Normal [facility] Comment on above: Performed By: #### P T #### [facility] [address] [place] [address] Dr. Sariah Boyle INR GUIDELINES SEE BELOW Normal [facility] Comment on above: Result Comment: NHUNG RED INR: 2.0 - 3.0 CONDITIONS NOT LISTED BELOW 2.5 - 3.5 FOR PROSTHETIC HEART VALVE REPLACEMENT 2.5 - 3.5 RECURRENT THROMBOSIS Performed By: #### P T #### [facility] [address] [place] [address] Dr. Sariah Boyle PT Coag (PPP) [Time] 20.2 s Critically high 9.0-11.6 [facility] Comment on above: Performed By: #### P T #### [facility] [address] [place] [address] Dr. Sariah Boyle COMPREHENSIVE METABOLIC PANE Donato 08-23-2021 Albumin [Mass/Vol] 4.1 g/dL Normal 3.6-5.1 [facility] Comment on above: Performed By: #### 1 0231, 8180 #### [facility] [address] [phone] Clerk Entry Level: Jose Juan Arriola MD Albumin/Globulin [Mass ratio] 1.6 {ratio} Normal 1.0-2.5 [facility] Comment on above: Performed By: #### 1 0231, 7600 #### [facility] [address], [address] [place] [phone] Clerk Entry Level: Jose Juan Arriola MD ALP [Catalytic activity/Vol] 61 U/L Normal 35-144 [facility] Comment on above: Performed By: #### 1 0231, 7600 #### [facility] of [address], [address] [place] [address] Clerk Entry Level: Jose Juan Arriola MD ALT [Catalytic activity/Vol] 9 U/L Normal 9-46 [facility] Comment on above: Performed By: #### 1 0231, 7600 #### [facility] of [address], [address] [place] [address] Clerk Entry Level: Jose Juan Arriola MD AST [Catalytic activity/Vol] 14 U/L Normal 10-35 [facility] Comment on above: Performed By: #### 1 0231, 7600 #### [facility] of [address] [place] [address] Clerk Entry Level: Jose Juan Arriola MD Bilirubin [Mass/Vol] 0.6 mg/dL Normal 0.2-1.2 [facility] Comment on above: Performed By: #### 1 023, 7600 #### [facility] of [address] [place] [address] Clerk Entry Level: Jose Juan Arriola MD Calcium [Mass/Vol] 9.1 mg/dL Normal 8.6-10.3 [facility] Comment on above: Performed By: #### 1 0231, 7600 #### [facility] of [address] [place] [address] Clerk Entry Level: Jose Juan Arriola MD Chloride [Moles/Vol] 109 mmol/L Normal 98-110 [facility] Comment on above: Performed By: #### 1 0231, 7600 #### [facility] of [address], [address] [place] [address] Clerk Entry Level: Jose Juan Arriola MD CO2 [Moles/Vol] 26 mmol/L Normal 20-32 [facility] Comment on above: Performed By: #### 1 0231, 7600 #### [facility] of [address], [address] [place] [address] Clerk Entry Level: Jose Juan Arriola MD Creatinine [Mass/Vol] 2.15 mg/dL High 0.70-1.11 [facility] Comment on above: Result Comment: For patients >49 years of age, the reference limit for Creatinine is approximately 13% higher for people identified as -Panamanian. Performed By: #### 1 0231, 7600 #### [facility] [address], [address] [place] [address] Clerk Entry Level: Jose Juan Arriola MD eGFR NON-AFR. SWEDISH 27 mL/min/1.73m2 Low > OR = 60 [facility] Comment on above: Performed By: #### 1 023, 7600 #### [facility] of [address], [address] [place] [address] Clerk Entry Level: Jose Juan Arriola MD GFR/1.73 sq M.predicted among blacks MDRD (S/P/Bld) [Vol rate/Area] 31 mL/min/{1.73_m2} Low > OR = 60 [facility] Comment on above: Performed By: #### 1 023, 7600 #### [facility] of [address], [address] [place] [address] Clerk Entry Level: Jose Juan Arriola MD Globulin (S) [Mass/Vol] 2.5 g/dL Normal 1.9-3.7 [facility] Comment on above: Performed By: #### 1 023, 7600 #### [facility] of [address], [address] [place] [address] Clerk Entry Level: Jose Juan Arriola MD Glucose [Mass/Vol] 93 mg/dL Normal 65-99 [facility] Comment on above: Result Comment: Fasting reference interval Performed By: #### 1 0231, 7600 #### [facility] of [place] [address] Clerk Entry Level: Jose Juan Arriola MD Potassium [Moles/Vol] 4.7 mmol/L Normal 3.5-5.3 [facility] Comment on above: Performed By: #### 1 0231, 7600 #### [facility] [address], [address] [place], [place] [address] Clerk Entry Level: Jose Juan Arriola MD Protein [Mass/Vol] 6.6 g/dL Normal 6.1-8.1 [facility] Comment on above: Performed By: #### 1 0231, 7600 #### [facility] of [address], [address] [place] [address] Clerk Entry Level: Jose Juan Arriola MD Sodium [Moles/Vol] 142 mmol/L Normal 135-146 [facility] Comment on above: Performed By: #### 1 0231, 7600 #### [facility] of [address], [address] [place] [address] Clerk Entry Level: Jose Juan Arriola MD Urea nitrogen [Mass/Vol] 31 mg/dL High 7-25 [facility] Comment on above: Performed By: #### 1 0231, 7600 #### [facility] of [address], [address] [place] [address] Clerk Entry Level: Jose Juan Arriola MD Urea nitrogen/Creatinine [Mass ratio] 14 mg/mg Normal 6-22 [facility] Comment on above: Performed By: #### 1 0231, 7600 #### [facility] of [address], [address] [place] [address] Clerk Entry Level: Jose Juan Arriola MD LIPID PANEL, [facility] 040 Cholesterol [Mass/Vol] 101 mg/dL Normal <200 [facility] Comment on above: Order Comment: FASTI NG:YES FASTING: YES Performed By: #### 1 023, 7600 #### [facility] of [address], [address] [place] [address] Clerk Entry Level: Jose Juan Arriola MD Cholesterol in HDL [Mass/Vol] 40 mg/dL Normal > OR = 40 [facility] Comment on above: Order Comment: FASTI NG:YES FASTING: YES Performed By: #### 1 0231, 7600 #### [facility] of [address], [address] [place] [address] Clerk Entry Level: Jose Juan Arriola MD Cholesterol in LDL [...] LDL-C. Phillip SS et al. MERYL. 2013;310(19): 6850-8675 (http://education.CleverAds/faq/NKL607) Performed By: #### 1 0231, 7600 #### [facility] [address], [address] [place] [address] Clerk Entry Level: Jose Juan Arriola MD Cholesterol.total/C holesterol in HDL [Mass ratio] 2.5 {ratio} Normal <5.0 [facility] Comment on above: Order Comment: FASTI NG:YES FASTING: YES Performed By: #### 1 023, 7600 #### [facility] [address], [address] [place] [address] Clerk Entry Level: Jose Juan Arriola MD NON HDL CHOLESTEROL 61 mg/dL (calc) Normal <130 [facility] Comment on above: Order Comment: FASTI NG:YES FASTING: YES Result Comment: For patients with diabetes plus 1 major ASCVD risk factor, treating to a non-HDL-C goal of <100 mg/dL (LDL-C of <70 mg/dL) is considered a therapeutic option. Performed By: #### 1 0231, 7600 #### [facility] [address], [address] [place] [address] Clerk Entry Level: Jose Juan Arriola MD Triglyceride [Mass/Vol] 127 mg/dL Normal <150 [facility] Comment on above: Order Comment: FASTI NG:YES FASTING: YES Performed By: #### 1 0231, 7600 #### [facility] [address], [address] [place] [address] Clerk Entry Level: Jose Juan Arriola MD Tobacco Screening.on 021 Fall risk assessment a) No falls within the last year -[facility] 250 DO Work Phone: Tobacco use status [facility] b) No -[facility] 250 DO Work Phone: B TYPE NATRIURETIC PEPTIDE ( BNP)on 11-03-2020 B TYPE NATRIURETIC PEPTIDE (BNP) Normal [facility] Comment on above: Result Comment: FROZ EN EDTA PLASMA IS REQUIRED TEST NOT PERFORMED No suitable specimen received. Please review the test requirements at [email or web address] Performed By: #### 9 05, 56194, 41985, 6399, 718, 899, 622, 76185, 42583 #### [facility] [address] [place] [address] Clerk Entry Level: Jose Juan Arriola MD CBC (INCLUDES DIFF/PLT)on Basophils (Bld) [#/Vol] 0.071 10*3/uL Normal 0-200 [facility] Comment on above: Performed By: #### 9 05, 72417, 65239, 6399, 718, 899, 622, 73056, 61092 #### [facility] [place] [address] Clerk Entry Level: Jose Juan Arriola MD Basophils/100 WBC (Bld) 1.0 % Normal [facility] Comment on above: Performed By: #### 9 05, 37919, 79313, 6399, 718, 899, 622, 70942, 16493 #### [facility] [place] [address] Clerk Entry Level: Jose Juan Arriola MD Eosinophils (Bld) [#/Vol] 0.099 10*3/uL Normal 15-500 [facility] Comment on above: Performed By: #### 9 05, 94124, 26510, 6399, 718, 899, 622, 38177, 68408 #### [facility] [place] [address] Clerk Entry Level: Jose Juan Arriola MD Eosinophils/100 WBC (Bld) 1.4 % Normal [facility] Comment on above: Performed By: #### 9 05, 62184, 67758, 6399, 718, 899, 622, 35450, 31895 #### [facility] of [address] [address] Clerk Entry Level: Jose Juan Arriola MD Erythrocyte distribution width (RBC) [Ratio] 14.4 % Normal 11.0-15.0 [facility] Comment on above: Performed By: #### 9 05, 94583, 90819, 6399, 718, 899, 622, 91434, 87621 #### [facility] of [address] [place] [address] Clerk Entry Level: Jose Juan Arriola MD Hematocrit (Bld) [Volume fraction] 42.7 % Normal 38.5-50.0 [facility] Comment on above: Performed By: #### 9 05, 88150, 77985, 6399, 718, 899, 622, 53071, 09346 #### [facility] of [address] [place] [address] Clerk Entry Level: Jose Juan Arriola MD Hemoglobin (Bld) [Mass/Vol] 13.7 g/dL Normal 13.2-17.1 [facility] Comment on above: Performed By: #### 9 05, 56034, 28167, 6399, 718, 899, 622, 69807, 86771 #### [facility] of [address] [place] [address] Clerk Entry Level: Jose Juan Arriola MD Lymphocytes (Bld) [#/Vol] 1.512 10*3/uL Normal 850-3900 [facility] Comment on above: Performed By: #### 9 05, 18868, 91376, 6399, 718, 899, 622, 38662, 35615 #### [facility] of [address] [place] [address] Clerk Entry Level: Jose Juan Arriola MD Lymphocytes/100 WBC (Bld) 21.3 % Normal [facility] Comment on above: Performed By: #### 9 05, 22388, 34748, 6399, 718, 899, 622, 41946, 49860 #### [facility] of [address] [place] [address] Clerk Entry Level: Jose Juan Arriola MD MCH (RBC) [Entitic mass] 28.5 pg Normal 27.0-33.0 [facility] Comment on above: Performed By: #### 9 05, 85199, 08776, 6399, 718, 899, 622, 17312, 77408 #### [facility] of [address] [address] Clerk Entry Level: Jose Juan Arriola MD MCHC (RBC) [Mass/Vol] 32.1 g/dL Normal 32.0-36.0 [facility] Comment on above: Performed By: #### 9 05, 03759, 06136, 6399, 718, 899, 622, 86722, 79524 #### [facility] of [address] [address] Clerk Entry Level: Jose Juan Arriola MD MCV (RBC) [Entitic vol] 89.0 fL Normal 80.0-100.0 [facility] Comment on above: Performed By: #### 9 05, 52926, 17236, 6399, 718, 899, 622, 71238, 00324 #### [facility] of [address] [address] Clerk Entry Level: Jose Juan Arriola MD Monocytes (Bld) [#/Vol] 0.738 10*3/uL Normal 200-950 [facility] Comment on above: Performed By: #### 9 05, 57252, 99932, 6399, 718, 899, 622, 13651, 56333 #### [facility] of [address] [place] [address] Clerk Entry Level: Jose Juan Arriola MD Monocytes/100 WBC (Bld) 10.4 % Normal [facility] Comment on above: Performed By: #### 9 05, 26169, 33703, 6399, 718, 899, 622, 46651, 25990 #### [facility] [place] [address] Clerk Entry Level: Jose Juan Arriola MD Neutrophils (Bld) [#/Vol] 4.679 10*3/uL Normal 5934-8585 [facility] Comment on above: Performed By: #### 9 05, 86274, 91404, 6399, 718, 899, 622, 06320, 30919 #### [facility] [place] [address] Clerk Entry Level: Jose Juan Arriola MD Neutrophils/100 WBC (Bld) 65.9 % Normal [facility] Comment on above: Performed By: #### 9 05, 29857, 13869, 6399, 718, 899, 622, 15830, 37408 #### [facility] [place] [address] Clerk Entry Level: Jose Juan Arriola MD Platelet mean volume (Bld) [Entitic vol] 11.4 fL Normal 7.5-12.5 [facility] Comment on above: Performed By: #### 9 05, 66011, 60154, 6399, 718, 899, 622, 71420, 95688 #### [facility] [place] [address] Clerk Entry Level: Jose Juan Arriola MD Platelets (Bld) [#/Vol] 229 10*3/uL Normal 140-400 [facility] Comment on above: Performed By: #### 9 05, 07186, 42747, 6399, 718, 899, 622, 97185, 75728 #### [facility] of [address] [address] Clerk Entry Level: Jose Juan Arriola MD RBC (Bld) [#/Vol] 4.80 10*6/uL Normal 4.20-5.80 [facility] Comment on above: Performed By: #### 9 05, 47906, 57496, 6399, 718, 899, 622, 70365, 44093 #### [facility] of [place] [address] Clerk Entry Level: Jose Juan Arriola MD WBC (Bld) [#/Vol] 7.1 10*3/uL Normal 3.8-10.8 [facility] Comment on above: Performed By: #### 9 05, 08286, 27549, 6399, 718, 899, 622, 52674, 97335 #### [facility] of [place] [address] Clerk Entry Level: Jose Juan Arriola MD [facility] METABOLIC [facility] 11-03-2020 Albumin [Mass/Vol] 4.1 g/dL Normal 3.6-5.1 [facility] Comment on above: Performed By: #### 9 05, 64721, 83786, 6399, 718, 899, 622, 05358, 39652 #### [facility] [place] [address] Clerk Entry Level: Jose Juan Arriola MD Albumin/Globulin [Mass ratio] 1.7 {ratio} Normal 1.0-2.5 [facility] Comment on above: Performed By: #### 9 05, 17988, 95761, 6399, 718, 899, 622, 90290, 62603 #### [facility] [place] [address] Clerk Entry Level: Jose Juan Arriola MD ALP [Catalytic activity/Vol] 62 U/L Normal 35-144 [facility] Comment on above: Performed By: #### 9 05, 98065, 80063, 6399, 718, 899, 622, 51475, 64605 #### [facility] of [place] [address] Clerk Entry Level: Jose Juan Arriola MD ALT [Catalytic activity/Vol] 9 U/L Normal 9-46 [facility] Comment on above: Performed By: #### 9 05, 02302, 63379, 6399, 718, 899, 622, 02138, 71715 #### [facility] of [place] [address] Clerk Entry Level: Jose Juan Arriola MD AST [Catalytic activity/Vol] 13 U/L Normal 10-35 [facility] Comment on above: Performed By: #### 9 05, 81767, 73383, 6399, 718, 899, 622, 51985, 84107 #### [facility] of [place] [address] Clerk Entry Level: Jose Juan Arriola MD Bilirubin [Mass/Vol] 0.7 mg/dL Normal 0.2-1.2 [facility] Comment on above: Performed By: #### 9 05, 49022, 48037, 6399, 718, 899, 622, 52222, 28449 #### [facility] of [place] [address] Clerk Entry Level: Jose Juan Arriola MD Calcium [Mass/Vol] 9.5 mg/dL Normal 8.6-10.3 [facility] Comment on above: Performed By: #### 9 05, 37624, 92564, 6399, 718, 899, 622, 88002, 49008 #### [facility] of [place] [address] Clerk Entry Level: Jose Juan Arriola MD Chloride [Moles/Vol] 109 mmol/L Normal 98-110 [facility] Comment on above: Performed By: #### 9 05, 72440, 84630, 6399, 718, 899, 622, 53157, 51494 #### [facility] of [place] [address] Clerk Entry Level: Jose Juan Arriola MD CO2 [Moles/Vol] 25 mmol/L Normal 20-32 [facility] Comment on above: Performed By: #### 9 05, 62350, 70650, 6399, 718, 899, 622, 02420, 73730 #### [facility] of [place] [phone] Clerk Entry Level: Jose Juan Arriola MD Creatinine [Mass/Vol] 1.99 mg/dL High 0.70-1.11 [facility] Comment on above: Result Comment: For patients >49 years of age, the reference limit for Creatinine is approximately 13% higher for people identified as -Panamanian. Performed By: #### 9 05, 28477, 89524, 6399, 718, 899, 622, 55052, 08202 #### [facility] [place] [address] Clerk Entry Level: Jose Juan Arriola MD eGFR NON-AFR. SWEDISH 30 mL/min/1.73m2 Low > OR = 60 [facility] Comment on above: Performed By: #### 9 05, 28306, 05161, 6399, 718, 899, 622, 14432, 60721 #### [facility] [place] [address] Clerk Entry Level: Jose Juan Arriola MD GFR/1.73 sq M.predicted among blacks MDRD (S/P/Bld) [Vol rate/Area] 34 mL/min/{1.73_m2} Low > OR = 60 [facility] Comment on above: Performed By: #### 9 05, 10675, 88128, 6399, 718, 899, 622, 53945, 69301 #### [facility] [place] [address] Clerk Entry Level: Jose Juan Arriola MD Globulin (S) [Mass/Vol] 2.4 g/dL Normal 1.9-3.7 [facility] Comment on above: Performed By: #### 9 05, 91317, 30639, 6399, 718, 899, 622, 20994, 28538 #### [facility] [place] [address] Clerk Entry Level: Jose Juan Arriola MD Glucose [Mass/Vol] 144 mg/dL High 65-99 [facility] Comment on above: Result Comment: Fasting reference interval For someone without known diabetes, a glucose value >125 mg/dL indicates that they may have diabetes and this should be confirmed with a follow-up test. Performed By: #### 9 05, 83369, 19975, 6399, 718, 899, 622, 55348, 03191 #### [facility] [place] [address] Clerk Entry Level: Jose Juan Arriola MD Potassium [Moles/Vol] 4.9 mmol/L Normal 3.5-5.3 [facility] Comment on above: Performed By: #### 9 05, 16775, 70938, 6399, 718, 899, 622, 08263, 37017 #### [facility] [place] [address] Clerk Entry Level: Jose Juan Arriola MD Protein [Mass/Vol] 6.5 g/dL Normal 6.1-8.1 [facility] Comment on above: Performed By: #### 9 05, 71156, 14637, 6399, 718, 899, 622, 24557, 67144 #### [facility] [place] [address] Clerk Entry Level: Jose Juan Arriola MD Sodium [Moles/Vol] 141 mmol/L Normal 135-146 [facility] Comment on above: Performed By: #### 9 05, 42779, 01313, 6399, 718, 899, 622, 86856, 04055 #### [facility] [place] [address] Clerk Entry Level: Jose Juan Arriola MD Urea nitrogen [Mass/Vol] 31 mg/dL High 7-25 [facility] Comment on above: Performed By: #### 9 05, 90926, 26719, 6399, 718, 899, 622, 68089, 78100 #### [facility] [place] [address] Clerk Entry Level: Jose Juan Arriola MD Urea nitrogen/Creatinine [Mass ratio] 16 mg/mg Normal 6-22 [facility] Comment on above: Performed By: #### 9 05, 64515, 04899, 6399, 718, 899, 622, 10513, 02543 #### [facility] [place] [address] Clerk Entry Level: Jose Juan Arriola MD MAGNESIUMon 11-03-2020 Magnesium [Mass/Vol] 2.1 mg/dL Normal 1.5-2.5 [facility] Comment on above: Performed By: #### 9 05, 43550, 54905, 6399, 718, 899, 622, 95349, 47368 #### [facility] [place] [address] Clerk Entry Level: Jose Juan Arriola MD PHOSPHATE ( PHOSPHORUS)on 11-03-2020 Phosphate [Mass/Vol] 2.9 mg/dL Normal 2.1-4.3 [facility] Comment on above: Performed By: #### 9 05, 12514, 51512, 6399, 718, 899, 622, 29452, 65272 #### [facility] [place] [address] Clerk Entry Level: Jose Juan Arriola MD PTH, INTACT WITHOUT [...] Normal High Performed By: #### 9 05, 79798, 43621, 6399, 718, 899, 622, 47504, 88173 #### [facility] [place] [address] Clerk Entry Level: Jose Juan Arriola MD TSHon 11-03-2020 TSH Qn 2.08 m[IU]/L Normal 0.40-4.50 [facility] Comment on above: Performed By: #### 9 05, 76009, 13628, 6399, 718, 899, 622, 22965, 06698 #### [facility] [address], [address] [place] [phone] Clerk Entry Level: Jose Juan Arriola MD URIC ACIDon 11-03-2020 Urate [Mass/Vol] 8.5 mg/dL High 4.0-8.0 [facility] Comment on above: Result Comment: Ther apeutic target for gout patients: <6.0 mg/dL Performed By: #### 9 05, 25198, 95449, 6399, 718, 899, 622, 86823, 82635 #### [facility] [address], [address] [place] [phone] Clerk Entry Level: Jose Juan Arriola MD VITAMIN D,25-OH,TOTAL,IAon 0 [...] D, (D2,D3), LC/MS/MS is recommended: order code 24053 (patients >2yrs). See Note 1 Note 1 For additional information, please refer to http://education.[employer]lemen/faq/VKA204 (This link is being provided for informational/ educational purposes only.) Performed By: #### 1 0231, 7600 #### [facility] [address], [address] [place] [phone] Clerk Entry Level: Jose Juan Arriola MD [facility] CARDIAC STRESS/REST INJE CTIONon 08-07-2019 [facility] CARDIAC STRESS/REST INJECTION Patient Name: DONOVAN JACOME STUDY: MYOCARDIAL PERFUSION STRESS TEST WITH LEXISCAN Performing facility: [facility], [address] [place] [address], [address], [place] [address] [facility] Provider: Melanie Langston MD, [facility] PCP: Dr. Alden Morin Supervising provider: Doron Jacobsen MD, [facility] INDICATION: Arteriosclerotic cardiovascular disease Pre-operative risk assessment for Gallbladder scheduled at [facility] on TBA. HISTORY: Gender: M; Age: 83 y/o ; Height: 175.26 cm; Weight: 74.6457800 kg. High Cholesterol; CAD; HTN; ICD V. Tach., ICD Denies smoking. COMPARISON: Previous nuclear testing completed at [facility]. ACCESSION NUMBER(S): [id number]; [id number]; [id number] ORDERING CLINICIAN: AIDAN LANGSTON TECHNIQUE: ONE DAY [...] changes. Electronically signed by: DORON JACOBSEN MD Normal [facility] Reminderson 03-14-2019 Reminders - From: Qing Villegas MA To: EU - Clinical; Sent: 03/04/2019 11:29:06 EDT Show up: 03/14/2019 11:29:00 EDT Subject: Ambulatory Reminder Due Date/Time: 03/18/2019 11:29:00 EDT Reminder/Recall FISH/Cytology done 03/04/19 Negative. Normal [facility] Vital Signs Date Time Vital Sign Value Performing Clinician Facility 03-06-2024 10:36-0400 Body height 177.8 cm Doodle DO Work Phone[facility] 03-06-2024 10:36-0400 Body mass index (BMI) [Ratio] 21.38 kg/m2 Doodle DO Work Phone: [facility] 03-06-2024 10:36-0400 Body temperature 97.5 [degF] Doodle DO Work Phone: [facility] 03-06-2024 10:36-0400 Body weight 67.59 kg Doodle DO Work Phone: [facility] 03-06-2024 10:36-0400 Diastolic blood pressure 60 mm[Hg] Doodle DO Work Phone: [employer] 03-06-2024 10:36-0400 Heart rate 70 /min Doodle DO Work Phone: [facility] 03-06-2024 10:36-0400 Respiratory rate 18 /min Doodle DO Work Phone: [facility] 03-06-2024 10:36-0400 SaO2% (BldA) [Mass fraction] 97 % Phil Nicoleng DO Work Phone: [facility] 03-06-2024 10:36-0400 Systolic blood pressure 110 mm[Hg] Phil Nicoleng DO Work Phone: [facility] 03-04-2024 14:51-0400 SaO2% (BldA) [Mass fraction] 98 % Nicole Rose MD Work Phone: [facility] 03-04-2024 12:23-0400 Body height 180.3 cm Nicole Rose MD Work Phone: [facility] 03-04-2024 12:23-0400 Body mass index (BMI) [Ratio] 21.43 kg/m2 Nicole Rose MD Work Phone: [facility] 03-04-2024 12:23-0400 Body temperature 97.3 [degF] Nicole Rose MD Work Phone: [facility] 03-04-2024 12:23-0400 Body weight 69.7 kg Nicole Rose MD Work Phone: [facility] 03-04-2024 12:23-0400 Diastolic blood pressure 78 mm[Hg] Nicole Rose MD Work Phone: [facility] 03-04-2024 12:23-0400 Heart rate 75 /min Nicole Rose MD Work Phone: [facility] 03-04-2024 12:23-0400 Respiratory rate 16 /min Nicole Rose MD Work Phone: [facility] 03-04-2024 12:23-0400 Systolic blood pressure 159 mm[Hg] Nicole Rose MD Work Phone: [facility] 02-26-2024 09:26-0400 Body height 180.3 cm Nicole Rose MD Work Phone: [facility] 02-26-2024 09:26-0400 Body mass index (BMI) [Ratio] 21.34 kg/m2 Nicole Rose MD Work Phone: [facility] 02-26-2024 09:26-0400 Body temperature 96.91 [degF] Nicole Rose MD Work Phone: [facility] 02-26-2024 09:26-0400 Body weight 69.4 kg Nicole Rose MD Work Phone: [facility] 02-26-2024 09:26-0400 Diastolic blood pressure 79 mm[Hg] Nicole Rose MD Work Phone: [facility] 02-26-2024 09:26-0400 Heart rate 88 /min Nicole Rose MD Work Phone: [facility] 02-26-2024 09:26-0400 Respiratory rate 16 /min Nicole Rose MD Work Phone: [facility] 02-26-2024 09:26-0400 SaO2% (BldA) [Mass fraction] 98 % Nicole Rose MD Work Phone: [facility] 02-26-2024 09:26-0400 Systolic blood pressure 115 mm[Hg] Nicole Rose MD Work Phone: [facility] 11-05-2023 08:57-0400 Body height 180.3 cm Aidan Langston MD Work Phone: [facility] 11-05-2023 08:57-0400 Body mass index (BMI) [Ratio] 21.9 kg/m2 Aidan Langston MD Work Phone: [facility] 11-05-2023 08:57-0400 Body weight 71.22 kg Aidan Langston MD Work Phone: [facility] 11-05-2023 08:57-0400 Diastolic blood pressure 90 mm[Hg] Aidan Langston MD Work Phone: [facility] 11-05-2023 08:57-0400 Heart rate 82 /min Aidan Langston MD Work Phone: [facility] 11-05-2023 08:57-0400 Systolic blood pressure 130 mm[Hg] Aidan Langston MD Work Phone: [facility] 08-06-2023 10:10-0400 Body height 177.8 cm Phil Furlong DO Work Phone: [employer] 08-06-2023 10:10-0400 Body mass index (BMI) [Ratio] 23.69 kg/m2 Phil Furlong DO Work Phone: [employer] 08-06-2023 10:10-0400 Body temperature 97.81 [degF] Phil Furlong DO Work Phone: [employer] 08-06-2023 10:10-0400 Body weight 74.89 kg Phil Furlong DO Work Phone: [employer] 08-06-2023 10:10-0400 Diastolic blood pressure 60 mm[Hg] Phil Furlong DO Work Phone: [employer] 08-06-2023 10:10-0400 Heart rate 93 /min Phil Furlong DO Work Phone: [employer] 08-06-2023 10:10-0400 Respiratory rate 18 /min Phil Furlong DO Work Phone: [employer] 08-06-2023 10:10-0400 SaO2% (BldA) [Mass fraction] 97 % Phil Furlong DO Work Phone: [employer] 08-06-2023 10:10-0400 Systolic blood pressure 106 mm[Hg] Phil Furlong DO Work Phone: [facility] [employer] [facility] 05-29-2023 16:13-0500 Body height 177.8 cm Phil Furlong DO Work Phone: [facility] [employer] 05-29-2023 16:13-0500 Body mass index (BMI) [Ratio] 24.12 kg/m2 Phil Furlong DO Work Phone: [facility] [employer] 05-29-2023 16:13-0500 Body temperature 97.81 [degF] Phil Furlong DO Work Phone: [facility] [employer] 05-29-2023 16:13-0500 Body weight 76.25 kg Phil Furlong DO Work Phone: [facility] [employer] 05-29-2023 16:13-0500 Diastolic blood pressure 68 mm[Hg] Phil Furlong DO Work Phone: [facility] 05-29-2023 16:13-0500 Heart rate 104 /min Phil Reynagalong DO Work Phone: [facility] [employer] 05-29-2023 16:13-0500 SaO2% (BldA) [Mass fraction] 99 % Phil Ronnelllong DO Work Phone: [facility] [employer] 05-29-2023 16:13-0500 Systolic blood pressure 128 mm[Hg] Phil Reynagalong DO Work Phone: [facility] 01-12-2023 14:17-0400 Body height 175.26 cm Phil Reynagalong Work Phone: [facility] DO Work Phone: 01-12-2023 14:17-0400 Body mass index (BMI) [Ratio] 23.78 kg/m2 Phil G Furlong Work Phone: [facility] [facility] DO Work Phone: 01-12-2023 14:17-0400 Body surface area Derived from formula 1.88 m2 Phil G Furlong Work Phone: [facility] DO Work Phone: 01-12-2023 14:17-0400 Body weight 73.03 kg Phil G Furlong Work Phone: [facility] DO Work Phone: 01-12-2023 14:17-0400 Diastolic blood pressure 78 mm[Hg] Phil G Furlong Work Phone: [facility] DO Work Phone: 01-12-2023 14:17-0400 Heart rate 72 /min Phil G Furlong Work Phone: [facility] DO Work Phone: 01-12-2023 14:17-0400 Systolic blood pressure 122 mm[Hg] Phil G Furlong Work Phone: [facility] [employer] DO Work Phone: 07-14-2022 15:41-0500 Body height 175.26 cm Phil G Furlong Work Phone: [facility] [employer] DO Work Phone: 07-14-2022 15:41-0500 Body mass index (BMI) [Ratio] 23.92 kg/m2 Phil G Furlong Work Phone: [facility] DO Work Phone: 07-14-2022 15:41-0500 Body surface area Derived from formula 1.89 m2 Phil G Furlong Work Phone: [facility] DO Work Phone: 07-14-2022 15:41-0500 Body weight 73.48 kg Phil G Furlong Work Phone: [facility] DO Work Phone: 07-14-2022 15:41-0500 Diastolic blood pressure 80 mm[Hg] Phil Reynagalong Work Phone: [facility] DO Work Phone: 07-14-2022 15:41-0500 Heart rate 80 /min Phil Reynagalong Work Phone: [facility] DO Work Phone: 07-14-2022 15:41-0500 Systolic blood pressure 130 mm[Hg] Phil Reynagalong Work Phone: [facility] DO Work Phone: 06-15-2022 12:40-0500 Diastolic blood pressure 78 mm[Hg] Florentino Kumari Dept. of Dermatology 06-15-2022 12:40-0500 Systolic blood pressure 167 mm[Hg] Florentino Kumari Dept[facility] D[facility]atology 06-06-2022 08:07-0500 Diastolic blood pressure 85 mm[Hg] Florentino Kumari Dept[facility] Dermatology 06-06-2022 08:07-0500 Systolic blood pressure 150 mm[Hg] Florentino Kumari Dept[facility] of Dermatology 04-03-2022 14:27-0500 Body height 175.26 cm Phil Reynagalong Work Phone: [facility] Work Phone: 04-03-2022 14:27-0500 Body mass index (BMI) [Ratio] 23.92 kg/m2 Phil Soliz Furlong Work Phone: [facility]sp[facility] [place] Work Phone: 04-03-2022 14:27-0500 Body surface area Derived from formula 1.89 m2 Phil Reynagalong Work Phone: [facility]Ytcngyvhxcurjb-Jq [place] Work Phone: 04-03-2022 14:27-0500 Body weight 73.48 kg Phil Reynagalong Work Phone: [facility] [place] Work Phone: 03-23-2022 09:29-0400 Diastolic blood pressure 89 mm[Hg] Karlie Craig Dept. of Dermatology 03-23-2022 09:29-0400 Systolic blood pressure 160 mm[Hg] Karlie Craig Dept[facility] of Dermatology 03-23-2022 08:29-0400 Diastolic blood pressure 89 mm[Hg] Florentino Kumari Dept. of Dermatology 03-23-2022 08:29-0400 Systolic blood pressure 160 mm[Hg] Florentino Kumari Dept[facility] of Dermatology 12-13-2021 08:48-0400 Body height 175.26 cm Phil Reynagalong Work Phone: [facility] [employer] 250 DO Work Phone: 12-13-2021 08:48-0400 Body mass index (BMI) [Ratio] 23.63 kg/m2 Phil Reynagalong Work Phone: [facility] [employer] 250 DO Work Phone: 12-13-2021 08:48-0400 Body surface area Derived from formula 1.88 m2 Phil Soliz [employer] Work Phone: [facility] [employer] 250 DO Work Phone: 12-13-2021 08:48-0400 Body weight 72.58 kg Phil Reynagalong Work Phone: [facility] [employer] [facility] DO Work Phone: 12-13-2021 08:48-0400 Diastolic blood pressure 80 mm[Hg] Phil Soliz Furlong Work Phone: [facility] DO Work Phone: 12-13-2021 08:48-0400 Heart rate 80 /min Phil G Furlong Work Phone: [facility] DO Work Phone: 12-13-2021 08:48-0400 Systolic blood pressure 128 mm[Hg] Phil G Furlong Work Phone: [facility] [employer] DO Work Phone: 05-02-2021 08:27-0500 Body height 175.26 cm Phil G Furlong Work Phone: [facility] [employer] DO Work Phone: 05-02-2021 08:27-0500 Body mass index (BMI) [Ratio] 24.37 kg/m2 Phil G Furlong Work Phone: [facility] [employer] DO Work Phone: 05-02-2021 08:27-0500 Body surface area Derived from formula 1.9 m2 Phil G Furlong Work Phone: [facility] [employer] DO Work Phone: 05-02-2021 08:27-0500 Body weight 74.84 kg Phil G Furlong Work Phone: [facility] [employer] DO Work Phone: 05-02-2021 08:27-0500 Diastolic blood pressure 76 mm[Hg] Phil G Furlong Work Phone: [facility] [employer] [facility] DO Work Phone: 05-02-2021 08:27-0500 Heart rate 81 /min Phil Morin Work Phone: [facility] DO Work Phone: 05-02-2021 08:27-0500 Systolic blood pressure 137 mm[Hg] Phil Morin Work Phone: [facility] DO Work Phone: 1935 23:00-0500 >na< Karlie Craig Dept. of Dermato logy Encounters Encounter Date Encounter Type Care Provider Facility Start: 03-11-2024 End: 03-11-2024 ambulatory [facility] Ambulatory Start: 03-10-2024 End: 03-10-2024 Orders Only Phil Morin DO Work Phone: [facility] Comment on above: Vitamin D deficiency (Primary Dx) Start: 03-06-2024 End: 03-06-2024 ambulatory [facility] Start: 03-06-2024 End: 03-06-2024 Office outpatient visit 25 minutes Phil Morin DO Work Phone: [facility] Comment on above: Hypertension 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 ([facility]-HCC) (Primary Dx); 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); Cardiomyopathy (CMS-HCC); Stage 4 chronic kidney disease (CMS-HCC); Type 2 diabetes mellitus without complication, without long-term current use of insulin ([facility]-HCC) Start: 03-06-2024 End: 03-06-2024 ambulatory [facility] Start: 03-04-2024 End: 03-04-2024 Subsequent hospital visit by physician Nicole Rose MD Work Phone: [facility] Comment on above: 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 Start: 02-05-2024 End: 02-05-2024 Patient encounter procedure DO Philgirish Reynagalong Work Phone: [facility] Start: 02-05-2024 End: 02-05-2024 ambulatory DO Philgirish Reynagalong Work Phone: [facility] Work Phone: Start: 12-27-2023 End: 12-27-2023 Patient encounter procedure DO Phil Ronnelllong Work Phone: [facility] Start: 12-27-2023 End: 12-27-2023 ambulatory DO Phil Furlong Work Phone: [facility] Work Phone: Start: 11-05-2023 End: 11-05-2023 Office outpatient visit 25 minutes Aidan Langston MD Work Phone: [facility] Comment on above: Arteriosclerotic car diovascular disease (ASCVD) (Primary Dx); Essential hypertension; Mixed hyperlipidemia; Ventricular tachycardia (Multi); ICD (implantable cardioverter-defibrillator) in place; Dilated cardiomyopathy (Multi); Ischemic cardiomyopathy Start: 11-05-2023 End: 11-05-2023 ambulatory AIDAN LANGSTON [facility] Ambulatory Start: 09-27-2023 End: 09-27-2023 Patient encounter procedure DO Phil Furlong Work Phone: [facility] Start: 09-27-2023 End: 09-27-2023 ambulatory DO Phil Morin Work Phone: [facility] Work Phone: Start: 08-23-2023 Orders Only Phil pool DO Work Phone: [facility] Start: 08-09-2023 Orders Only Phil pool DO Work Phone: [facility] Comment on above: Type 2 diabetes gamaliel itus without complication, without long- term current use of insulin ([facility]-HCC) (Primary Dx); Hypertensive 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 ([facility]-HCC) Start: 08-06-2023 End: 08-06-2023 ambulatory [facility] Start: 08-06-2023 End: 08-06-2023 Office outpatient visit 25 minutes Phil Morin DO Work Phone: [facility] Comment on above: Hypertensive heart a nd renal disease with (congestive) heart failure (CMS-HCC) (Primary Dx); Hyperlipidemia, unspecified hyperlipidemia type; Stage 4 chronic kidney disease (CMS-HCC); Type 2 diabetes mellitus without complication, without long-term current use of insulin (CMS-HCC); Hyperparathyroidism (CMS-HCC); Malignant melanoma of scalp or neck ([facility]-HCC); Longstanding persistent atrial fibrillation ([facility]-HCC); Paroxysmal atrial fibrillation ([facility]-HCC); Microalbuminuric diabetic nephropathy ([facility]-HCC) Start: 08-06-2023 End: 08-06-2023 ambulatory [facility] Start: 07-18-2023 Orders Only Phli pool DO Work Phone: [facility] Comment on above: Longstanding persist ent atrial fibrillation ([facility]-HCC) (Primary Dx) Start: 06-28-2023 End: 06-28-2023 Patient encounter procedure DO Phil Morin Work Phone: [facility] Start: 06-28-2023 End: 06-28-2023 ambulatory DO Phil Furlong Work Phone: [facility] Work Phone: Start: 05-29-2023 End: 05-29-2023 Office outpatient visit 25 minutes Phil G Furlong DO Work Phone: [facility] Comment on above: Paroxysmal atrial fi brillation ([facility]-HCC) (Primary Dx); Hypertensive 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 ([facility]); Essential hypertension; Hypothyroidism, unspecified type; Type 2 diabetes mellitus without complication, without long-term current use of insulin ([facility]); Arteriosclerotic vascular disease Start: 05-29-2023 End: 05-29-2023 ambulatory PHIL MORIN [facility] Start: 03-20-2023 End: 03-20-2023 ambulatory DO Phil Furlong Work Phone: [facility] Work Phone: Start: 03-20-2023 End: 03-20-2023 Patient encounter procedure DO Phil Furlong Work Phone: [facility] Start: 01-12-2023 Office outpatient vi sit 25 minutes Phil G Furlong Work Phone: [facility] DO Work Phone: Start: 01-12-2023 Patient encounter procedure De nnis G Furlong Work Phone: [facility] DO Work Phone: Start: 10-17-2022 End: 10-18-[address] JARON DAVALOS Facility:[facility] Start: 09-15-2022 End: 09-16-[address] JARON DAVALOS Facility:[facility] Start: 08-28-2022 End: 08-28-2022 ambulatory DO Phil Furlong Work Phone: [facility] Work Phone: Start: 08-28-2022 End: 08-28-2022 Patient encounter procedure DO Phil Ronnelldestinyyrn Work Phone: [facility] Start: 08-15-2022 End: 08-16-[address] JARON DAVALOS Facility:[facility] Start: 07-18-2022 End: 07-19-[address] JARON DAVALOS Facility:[facility] Start: 07-14-2022 Office outpatient vi sit 25 minutes Phil Morin Work Phone: [facility] DO Work Phone: Start: 07-04-2022 End: 07-05-[address] JARON DAVALOS Facility:[facility] Start: 07-03-2022 Karlie Craig Dept. of D ermatology Start: 06-16-2022 Jaimie Estevez Dept. of Dermatology Start: 06-16-2022 Telephone encounter Phil Soliz Mckayla oliverio Work Phone: [facility] [facility] DO Work Phone: Start: 06-15-2022 Florentino Kumari Dept. of Dermatology Start: 06-09-2022 Rx Renewal Phil Soliz Ronnelldestiny ng Work Phone: [facility] DO Work Phone: Start: 06-07-2022 End: 06-08-[address] PHIL MORIN Facility:[facility] Start: 06-07-2022 Florentino Kumari Dept. of Dermatology Start: 05-17-2022 End: 05-17-2022 ambulatory DO Phil Reynagalong Work Phone: [facility] Work Phone: Start: 05-17-2022 End: 05-17-2022 Patient encounter procedure DO Phil Morin Work Phone: [facility] Start: 05-08-2022 End: 05-09-[address] PHIL MORIN Facility:[facility] Start: 05-01-2022 Rx Renewal Phil Soliz Ronnelldestiny ng Work Phone: -[facility] [facility] DO Work Phone: Start: 04-07-2022 End: 04-08-[address] PHIL MORIN Facility:[facility] Start: 04-04-2022 Karlie Craig Dept. of D ermatology Start: 04-03-2022 Office outpatient ne w 45 minutes Phil Soliz Ronnellbret Work Phone: [facility] Work Phone: Start: 04-03-2022 Patient encounter procedure De mindi Martínez Reynagadestinyyrn Work Phone: [facility] Work Phone: Start: 03-23-2022 Florentino Kumari Dept. of Dermatology Start: 03-06-2022 End: 03-07-[address] PHIL MORIN Facility:[facility] Start: 02-28-2022 Karlie Craig Dept. of D ermatology Start: 02-15-2022 End: 02-15-2022 ambulatory DO Phil Morin Work Phone: [facility] Work Phone: Start: 02-15-2022 End: 02-15-2022 Patient encounter procedure DO Phil Morin Work Phone: [facility] Start: 02-03-2022 End: 02-04-[address] PHIL MORIN Facility:[facility] Start: 01-02-2022 End: 01-03-[address] PHIL MORIN Facility:[facility] Start: 12-13-2021 Office outpatient vi sit 25 minutes Phil Morin Work Phone: [facility] DO Work Phone: Start: 12-02-2021 End: 12-16-[address] PHIL MORIN Facility:[facility] Start: 11-18-2021 End: 11-19-[address] PHIL Soliz RONNELLBRET Facility:[facility] Start: 05-02-2021 Office outpatient vi sit 25 minutes Phil Morin Work Phone: [facility] DO Work Phone: Procedures Date Procedure Procedure Detail Performing Clinician Start: 03-04-2024 Ecg routine ecg w/le ast 12 lds trcg only w/o i&r Aleena Dinero [employer] TEACHER-LAUNDRY OPERATOR Work Phone: Start: 03-04-2024 Basic metabolic pane l calcium total Aleena Carmen Dinero PLANT TAXONOMY TEACHER-LAUNDRY OPERATOR Work Phone: Start: 02-26-2024 Ecg routine ecg w/le ast 12 lds trcg only w/o i&r Nicole Rose MD Work Phone: Start: 08-06-2023 Adult depression scr eening assessment Phil Ronnelllong DO Work Phone: Start: 05-29-2023 Adult depression scr eening assessment Philgirish Reynagalong DO Work Phone: Start: 06-15-2022 Excision malignant l esion s/n/h/f/g 2.1-3.0 cm Florentino Kumari Start: 06-06-2022 Excision malignant: Scalp/Neck/Hands/Feet/Genit adam - 4.0cm [id number] Florentino Kumari Start: 06-06-2022 Excision malignant: Scalp/Neck/Hands/Feet/Genit adam - 4.0cm [id number] Florentino Kumari Start: 03-23-2022 End: 03-23-2022 Exc b9 lesion mrgn xcp sk tg t/a/l 3.1-4.0 cm Florentino Kumari Start: 02-28-2022 Karlie Sevillao n Brain Surgery Phil pool Work Phone: Cataract surgery Phil valdez Work Phone: History Of Prior Surgery Brayan Morin Work Phone: Total colonoscopy Phil Block urloyrn Work Phone: Transurethral resect ion of bladder neoplasm Phil Morin Work Phone: Plan of Treatment Date Care Activity Detail Author Start: 08-11-2027 DTaP,Tdap and Td Vaccines (2 - Td or Tdap) DTaP,Tdap and Td Vaccines (2 - Td or Tdap) [facility] Start: 08-11-2027 DTaP/Tdap/Td Vaccines (2 - Td or Tdap) DTaP/Tdap/Td Vaccines (2 - Td or Tdap) [facility] Start: 03-06-2025 Adult BMI Screening Adult BMI Screening [facility] Start: 03-06-2025 Tobacco Screening Tobacco Screening [facility] Start: 03-04-2025 Creatinine measurement Creatinine Level [facility] Start: 03-04-2025 Potassium measurement Potassium Level [facility] Start: 09-04-2024 End: 09-04-2024 Patient encounter procedure 09/04/2024 10:00 AM EDT [facility] [address] [place] [id number] RonnelldestinyPhil poolDO [address], [facility] [place] [address] [facility] Start: 09-02-2024 End: 03-04-2025 Cardiac Device Check - In Clinic Cardiac Device Check - In Clinic Implantable Cardiac Device Routine 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 Expected: 09/02/2024 (Approximate), Expires: 03/04/2025 [facility] Service Area Work Phone: Comment on above: Expected: 09/02/2024 (Approximate), Expi res: 03/04/2025 Start: 09-02-2024 End: 09-02-2024 Patient encounter procedure [facility] Start: 08-05-2024 Administration of varicella zoster vaccine Zoster (Shingles) Vaccine (1 of 2) [facility] Comment on above: Postponed from 09/25/2015 (Patient Refus ed) Start: 08-05-2024 Adult BMI Screening Adult BMI Screening [facility] Start: 08-05-2024 Depression Screening Depression Screening [facility] Start: 08-05-2024 Tobacco Screening Tobacco Screening [facility] Start: 08-04-2024 End: 08-04-2024 Patient encounter procedure 08/04/2024 9:30 AM EDT Office Visit [facility] [address] [place] [address] [address] [place] [address] Roslyn Mckenzie MD [address] [facility] [address] [place] [address] [facility] Start: 05-29-2024 Adult BMI Screening Adult BMI Screening [facility] Start: 05-29-2024 Depression Screening Depression Screening [facility] Start: 05-29-2024 Fall Risk Screening Fall Risk Screening [facility] Start: 05-29-2024 Tobacco Screening Tobacco Screening [facility] Start: 03-11-2024 End: 03-11-2024 Clinical Support 03/11/2024 9:30 AM EDT Clinical Support [facility] [address] [place] [address] [address] [place] [address] [facility] Start: 03-04-2024 End: 03-04-2024 Admission to same day surgery center 03/04/2024 3:30 PM EDT - 03/04/2024 4:30 PM EDT Surgery [facility] [address] [place] [address] Nicole Rose MD [address] [place] [place] [address] ICD DC Generator Change [04788 (CPT )] [facility] Comment on above: ICD DC Generator Change [13999 (CPT )] Start: 03-04-2024 Subsequent hospital visit by physician 03/04/2024 3:30 PM EDT Hospital Encounter [facility] [address] [facility] [place] [address] Nicole Rose MD [address] [place] [address] 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; Ventricular tachycardia (Multi) [facility] Comment on above: ICD (implantable cardioverter-defibrilla tor) in place; Ventricular tachycardia (Multi) Start: 02-06-2024 End: 02-06-2024 Patient encounter procedure 02/06/2024 9:00 AM EDT Office Visit [facility] [address] [place] [address] Phil Morin DO [address] [place] [address] [facility] Start: 01-20-2024 COVID-19 Vaccine ( season) COVID-19 Vaccine ( season) [facility] Start: 01-20-2024 Influenza vaccination [facility] Start: 10-16-2023 FUV, Provider: Aidan Langston, Status: Pen, Time: 9:00 AM FUV, Provider: Aidan Langston, Status: Pen, Time: 9:00 AM [facility] 250 DO Work Phone: Start: 08-06-2023 End: 08-06-2023 Patient encounter procedure 08/06/2023 10:10 AM EDT Office Visit [facility] [address] [place] [id number] Phil Morin, DO [address] [place] [address] [facility] Internal Medicine - [facility] Start: 07-30-2023 End: 07-30-2023 Patient encounter procedure 07/30/2023 10:20 AM EDT Office Visit [facility] Internal [facility] [address] [place] [address] Phil Morin, DO [address], [place] [address] [facility] Internal [facility] Start: 01-19-2023 COVID-19 Vaccine ( season) COVID-19 Vaccine () [facility] Start: 01-12-2023 FUV, Provider: Aidan Langston, Status: Pen, Time: 2:10 PM FUV, Provider: Aidan Langston, Status: Pen, Time: 2:10 PM [facility] 250 DO Work Phone: Start: 07-14-2022 FUV, Provider: Aidan Langston, Status: Pen, Time: 3:10 PM FUV, Provider: Aidan Langston, Status: Pen, Time: 3:10 PM [facility] Work Phone: Start: 06-27-2022 FUV, Provider: Doron Jacobsen, Status: Pen, Time: 9:10 AM FUV, Provider: Doron Jacobsen, Status: Pen, Time: 9:10 AM [facility] 250 DO Work Phone: Start: 12-13-2021 FUV, Provider: Aidan Langston, Status: Pen, Time: 8:50 AM FUV, Provider: Aidan Langston, Status: Pen, Time: 8:50 AM [facility] Work Phone: Start: 06-03-2016 Creatinine measurement Creatinine Level [facility] Start: 06-03-2016 Potassium measurement Potassium Level [facility] Start: 09-25-2015 Administration of varicella zoster vaccine Zoster (Shingles) Vaccine (1 of 2) [facility] Start: 09-25-2015 Zoster Vaccines (2 of 3) Zoster Vaccines (2 of 3) [facility] Start: 1994 RSV patients and/or patients aged 60+ years (1 - 1-dose 60+ series) RSV patients and/or patients aged 60+ years (1 - 1-dose 60+ series) [facility] Start: 1952 Diabetes mellitus screening Diabetes Screening [facility] Start: 02-13-1935 Examination of skin Derm Melanoma Skin Check [facility] Start: 1934 Echocardiography Echocardiogram [facility] Start: 1934 Lipid panel Lipid Panel [facility] Start: 1934 Medicare Annual Wellness Visit [facility] Start: 1934 Screening for osteoporosis Bone Density Scan [facility] End: 05-29-2024 Comprehensive metabolic 2000 panel - Serum or Plasma Comprehensive metabolic panel Lab Routine Hypertensive 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 ([facility]) 1 Occurrences starting 05/29/2023 until 05/29/2024 [facility] Comment on above: 1 Occurrences starting 05/29/2023 until 05/29/2024 ECG 12 lead STAT ECG 12 lead STA T ECG STAT 03/04/2024 12:20 PM EDT [facility] Service Area Work Phone: End: 02-26-2024 Electrophysiology study [facility] Service Are a Work Phone: Comment on above: Once for 1 Occurrences starting 02/26/20 24 until 02/26/2024 End: 05-29-2024 Hemoglobin A1c/Hemoglobin.total in Blood Hemoglobin A1c Lab Routine Type 2 diabetes mellitus without complication, without long-term current use of insulin ([facility]) 1 Occurrences starting 05/29/2023 until 05/29/2024 [facility] Comment on above: 1 Occurrences starting 05/29/2023 until 05/29/2024 End: 03-06-2025 Hemoglobin A1c/Hemoglobin.total in Blood Hemoglobin A1c Lab Routine Type 2 diabetes mellitus without complication, without long-term current use of insulin ([facility] 1 Occurrences starting 03/06/2024 until 03/06/2025 [facility] Comment on above: 1 Occurrences starting 03/06/2024 until 03/06/2025 End: 05-29-2024 Lipid panel Lipid panel Lab Routine Arteriosclerotic vascular disease 1 Occurrences starting 05/29/2023 until 05/29/2024 [facility] Comment on above: 1 Occurrences starting 05/29/2023 until 05/29/2024 End: 03-06-2025 Magnesium [Mass/volume] in Serum or Plasma Magnesium Lab Routine Hypertensive 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 ([facility] 1 Occurrences starting 03/06/2024 until 03/06/2025 [facility] Comment on above: 1 Occurrences starting 03/06/2024 until 03/06/2025 End: 03-06-2025 Parathyroid Hormone, intact Parathyroid Hormone, intact Lab Routine Hypertensive 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 ([facility] 1 Occurrences starting 03/06/2024 until 03/06/2025 [facility] Comment on above: 1 Occurrences starting 03/06/2024 until 03/06/2025 End: 03-06-2025 Phosphate [Mass/volume] in Serum or Plasma Phosphorus Lab Routine Hypertensive 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 ([facility] 1 Occurrences starting 03/06/2024 until 03/06/2025 [facility] Comment on above: 1 Occurrences starting 03/06/2024 until 03/06/2025 End: 05-29-2024 Protime & INR Protime & INR Lab Routine Paroxysmal atrial fibrillation ([facility]) 1 Occurrences starting 05/29/2023 until 05/29/2024 [employer] Work Phone: Comment on above: 1 Occurrences starting 05/29/2023 until 05/29/2024 End: 05-29-2024 Thyrotropin [Units/volume] in Serum or Plasma TSH Lab Routine Hypothyroidism, unspecified type 1 Occurrences starting 05/29/2023 until 05/29/2024 [facility] Comment on above: 1 Occurrences starting 05/29/2023 until 05/29/2024 End: 03-06-2025 Urate [Mass/volume] in Serum or Plasma Uric acid Lab Routine Hypertensive 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 ([facility]) 1 Occurrences starting 03/06/2024 until 03/06/2025 [employer] Work Phone: Comment on above: 1 Occurrences starting 03/06/2024 until 03/06/2025 End: 03-06-2025 Vitamin D 25 hydroxy Vitamin D 25 hydroxy Lab Routine Hypertensive 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 ([facility]) Stage 4 chronic kidney disease ([facility]) 1 Occurrences starting 03/06/2024 until 03/06/2025 [facility] Comment on above: 1 Occurrences starting 03/06/2024 until 03/06/2025 Immunizations Immunization Date Immunization Notes Care Provider Raquel chow 02-27-2024 Influenza, High-dose , Quadrivalent Phil Furlong DO Work Phone: [facility] 03-30-2023 Influenza, High-dose , Quadrivalent Phil Furlong DO Work Phone: [facility] 03-30-2023 influenza virus vacc ine, unspecified formulation Phil RonnellMtone Wirelessng DO Work Phone: [facility] 02-16-2022 Fluzone High-Dose Quadrivalent 0.7 ML Intramuscular Suspension Prefilled Syringe Philgirish Morin Work Phone: [facility] [employer] 250 DO Work Phone: 01-28-2021 Fluad Quadrivalent 0 .5 ML Intramuscular Prefilled Syringe Phil G [employer] Work Phone: [facility] Work Phone: 07-14-2020 Pfizer-BioNTech COVI D-19 Vacc 30 MCG/0.3ML Intramuscular Suspension Phil G [employer] Work Phone: [facility] DO Work Phone: 07-01-2020 PfizerFoneSense COVI D-19 Vacc 30 MCG/0.3ML Intramuscular Suspension Phil Morin Work Phone: [facility] 06-16-2020 COVID-19, mRNA, LNP- S, PF, 30mcg/0.3mL Dose Phil Morin DO Work Phone: [facility] 06-11-2020 PfizerGnip COVI D-19 Vacc 30 MCG/0.3ML Intramuscular Suspension Phil Morin Work Phone: [facility] [employer] DO Work Phone: 04-05-2020 pneumococcal polysaccharide vaccine, 23 valent Phil Reynagayrn Work Phone: [place] [address] DO Work Phone: 02-23-2020 Fluad Quadrivalent 0 .5 ML Intramuscular Prefilled Syringe Phil Morin Work Phone: [place] [address] DO Work Phone: 02-19-2020 influenza, seasonal, injectable Phil Morin Work Phone: [place] [address] DO Work Phone: 07-20-2019 pneumococcal conjuga te vaccine, 13 valent Phil Reynagayrn Work Phone: [place] [address] DO Work Phone: 03-12-2019 pneumococcal conjuga te vaccine, 13 valent Phil Reynagang Work Phone: [place] [address] DO Work Phone: 03-12-2019 Seasonal trivalent influenza vaccine, adjuvanted, preservative free [facility] Work Phone: [place] [address] DO Work Phone: 02-18-2019 influenza virus vacc ine, unspecified formulation Phil Reynagalong Work Phone: [place] [address] DO Work Phone: 03-04-2018 influenza virus vacc ine, unspecified formulation Phil Reynagalong Work Phone: [place] [address] DO Work Phone: 08-10-2017 tetanus toxoid, redu edwin diphtheria toxoid, and acellular pertussis vaccine, adsorbed Phil Reynagang Work Phone: [place] [address] DO Work Phone: 03-21-2017 influenza virus vacc ine, unspecified formulation Phil Reynagalong Work Phone: [place] [address] DO Work Phone: 03-13-2017 influenza, seasonal, injectable Phil Reynagalong Work Phone: [place] [address] DO Work Phone: 02-21-2016 influenza, seasonal, injectable, preservative free Phil Reynagalong Work Phone: [place] [address] DO Work Phone: 02-19-2016 influenza virus vacc ine, unspecified formulation Phil Reynagalong Work Phone: [place] [address] DO Work Phone: 07-31-2015 zoster vaccine, live Phil Reynagalong Work Phone: [facility] 250 DO Work Phone: 07-31-2015 zoster vaccine, unspecified formulation Phil Reynagalong DO Work Phone: [facility] 02-18-2015 influenza virus vacc ine, unspecified formulation Phil Reynagalong Work Phone: [place] [address] DO Work Phone: 02-17-2015 influenza, seasonal, injectable, preservative free Phil Reynagalong DO Work Phone: [facility] 05-11-2014 pneumococcal polysaccharide vaccine, 23 valent Phil G Furlong Work Phone: [place] [address] DO Work Phone: 02-18-2014 influenza virus vacc ine, unspecified formulation Phil Reynagalong Work Phone: [place] [address] DO Work Phone: 04-03-2013 pneumococcal conjuga te vaccine, 13 valent Phil G Furlong Work Phone: [place] [address] DO Work Phone: 02-18-2013 influenza virus vacc ine, unspecified formulation Phil Reynagang Work Phone: [place] [address] DO Work Phone: 02-18-2013 pneumococcal polysaccharide vaccine, 23 valent Phil Reynagalong Work Phone: [place] [address] DO Work Phone: 12-20-2011 influenza virus vacc ine, unspecified formulation Phil Reynagalong Work Phone: [place] [address] DO Work Phone: 05-21-2010 influenza virus vacc ine, unspecified formulation Phil G Furlong Work Phone: [facility] 250 DO Work Phone: 05-21-2009 influenza virus vacc ine, unspecified formulation Phil G Furlong Work Phone: [facility] 250 DO Work Phone: 05-21-2008 influenza virus vacc ine, unspecified formulation Phil G Furlong Work Phone: [facility] 250 DO Work Phone: 05-21-2007 pneumococcal polysaccharide vaccine, 23 valent Phil Soliz Furlong Work Phone: [facility] 250 DO Work Phone: 03-28-2002 pneumococcal polysaccharide vaccine, 23 valent Phil Soliz Furlong Work Phone: [facility] 250 DO Work Phone: 03-21-2002 pneumococcal polysaccharide vaccine, 23 valent Phil Furlong DO Work Phone: [facility] 1934 pneumococcal conjuga te vaccine, 7 valent Karlie Craig [facility] Payers Date Payer Category Payer Self-pay [id number] 2022 Medicare [id number] 1959 Private Health Insurance [id number] 1959 Private Health Insurance [id number] 1934 Unknown [id number] 2.16.840.1.820001.3.579.2.593 1934 Unknown [id number] 2.16.840.1.188706.3.579.2.593 1934 Unknown [id number] 2.16.840.1.102581.3.579.2.593 1934 Unknown [id number] 2.16.840.1.775185.3.579.2.593 1934 Unknown [id number] 2.16.840.1.792983.3.579.2.593 1934 Unknown [id number] 2.16.840.1.689923.3.579.2.593 1934 Unknown [id number] 2.16.840.1.264819.3.579.2.593 1934 Unknown [id number] 2.16.840.1.875517.3.579.2.593 1934 Unknown [id number] 2.16.840.1.917794.3.579.2.593 1934 Unknown [id number] 2.16.840.1.519354.3.579.2.593 1934 Unknown [id number] 2.16.840.1.088190.3.579.2.593 1934 Unknown [id number] 2.16.840.1.386256.3.579.2.593 1934 Unknown [id number] 2.16.840.1.926507.3.579.2.593 1934 Unknown [id number] 2.16.840.1.608229.3.579.2.1246 1934 Unknown [id number] 2.16.840.1.317276.3.579.2.1246 1934 Unknown [id number] 2.16.840.1.563891.3.579.2.1286 1934 Unknown [id number] 2.16.840.1.711961.3.579.2.1286 1934 Unknown [id number] 2.16.840.1.779789.3.579.2.1286 1934 Unknown [id number] 2.16.840.1.522255.3.579.2.1286 1934 Unknown [id number] 2.16.840.1.002763.3.579.2.1286 1934 Unknown [id number] 2.16.840.1.230336.3.579.2.1244 1934 Unknown [id number] 2.16.840.1.150826.3.579.2.1244 Medicare Medicare [id number] Medicare Medicare [id number] Unknown Unknown Dean BC/BS [id number] Unknown [id number] 2.16.840.1.261288.3.579.2.531 Unknown [id number] 2.16.840.1.201889.3.579.2.531 Unknown [id number] 2.16.840.1.772122.3.579.2.531 Unknown [id number] 2.16.840.1.318051.3.579.2.531 Social History Date Type Detail Facility Start: 09-19-2022 End: 05-29-2023 No alcohol use No alcohol use [facility] 250 DO Work Phone: Comment on above: 2 cups coffee daily; Start: 07-19-2019 End: 03-31-2022 Tobacco smoking status NHIS Never smoked tobacco (finding) [facility] Start: 1934 End: 1934 Sex Assigned At Male [facility] Start: 02-28-2022 Dept. of D ermatology Start: 03-31-2022 End: 07-11-2023 Tobacco use and exposure Smokeless tobacco non-user [employer] Start: 05-29-2023 End: 03-06-2024 Alcohol intake Ex-drinker (finding) [employer] Start: 09-19-2022 End: 05-29-2023 [facility] [employer] Has the electric, [employer], [employer] or water [employer] threatened to shut off services in your home in past 12Mo No [facility] Are you now , , , , never or living with a partner? [facility] How often to you hav e a drink containing alcohol? Never [facility] How many standard drinks containing alcohol do you have on a typical day? Patient does not drink [facility] Do you feel stress - tense, restless, nervous, or anxious, or unable to sleep at night because your mind is troubled all the time - these days [OSQ] Not at all [facility] Start: 1935 Sex Assigned At Not on file P [employer] [facility] Start: 11-05-2023 End: 03-04-2024 Alcoholic beverage intake Lifetime non-drinker (finding) [facility] Work Phone: Start: 10-26-2023 End: 03-04-2024 Exposure to SARS-CoV-2 (event) Not sure [facility] Start: 12-24-2014 Sex Male (finding) [facility] Medical Equipment Procedure Code Equipment Code Equipment Origin al Text Equipment Identifier Dates Willow Rodriguez Icd D f1 Connector [id number] Start: 03-04-2024 Goals Date Patient Goal Desired Activity /State Clinical Notes 05-29-2023 to 03-06-2024 Phil Morin, - 03/06/2024 10:45 AM Nicola Rose MD - 03/04/2024 4:53 PM Nicola Rose MD - 03/04/2024 4:53 PM Víctor Johnson RN - 03/04/2024 4:30 PM EDTDischarge Instructions Note Date & Type Note Facility 03-06-2024 History of Present illness Narrative Subjective Patient ID: Donovan Jacome is a 88 y.o. male. Donovan presents today to recheck multiple problems. He is taking all of his medications. He is not having any problems. You recently had his pacemaker changed and he feels much better. When he walks he does not feel like his legs are going to give out anymore. He is happy with the results. Hypertension Hyperlipidemia The following portions of the patient's history were reviewed and updated as appropriate: allergies, current medications, past family history, past medical history, past social history, past surgical history, problem list, and medication reconciliation was completed including current medication and post discharge medication. Review of Systems Constitutional: Negative. Respiratory: Negative. Cardiovascular: Negative. Gastrointestinal: Negative. Genitourinary: Negative. Neurological: Negative. Objective Physical Exam Constitutional: General: He is not in acute distress. Appearance: He is normal weight. He is not ill-appearing. HENT: Head: Normocephalic. Eyes: Extraocular Movements: Extraocular movements intact. Conjunctiva/sclera: Conjunctivae normal. Cardiovascular: Rate and Rhythm: Normal rate and regular rhythm. Pulses: Normal pulses. Heart sounds: Normal heart sounds. No murmur heard. Pulmonary: Effort: Pulmonary effort is normal. No respiratory distress. Breath sounds: Normal breath sounds. No wheezing, rhonchi or rales. Abdominal: General: Bowel sounds are normal. Palpations: Abdomen is soft. Tenderness: There is no abdominal tenderness. Musculoskeletal: Right lower leg: No edema. Left lower leg: No edema. Lymphadenopathy: Cervical: No cervical adenopathy. 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 CMP done prior to his pacemaker surgery was reviewed and showed stage 4 chronic kidney disease which is stable. Hypertensive 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 ([facility]) - Uric acid; Future - Magnesium; Future - Vitamin D 25 hydroxy; Future - Parathyroid Hormone, intact; Future - Phosphorus; Future Check chronic kidney disease labs Cardiomyopathy ([facility]) Stable. 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 Last A1c was 6.5% with diet control only. documented in this encounter [facility] 03-04-2024 Attending History and physical note H&P reviewed. The patient was examined and there are no changes to the H&P. Source Note - Nicole Rose MD - 02/26/2024 9:45 AM EDT Images from the original note were not included. Referring Provider: Roslyn Mckenzie MD Reason for Consult: Generator change History of Present Illness: Donovan Jacome is a 88 y.o. year old male patient with a history significant for dilated cardiomyopathy status post ICD, hypertension, hyperlipidemia who is referred by Dr. Mckenzie for generator change for device at [facility]. 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 He has an atrial pacesetter lead as well as a Riata lead in the RV. He has chronic atrial lead noise reversion episodes. He has 98% atrial paced and ventricular plate paced less than 1% the time. His device reached [facility] in January 2024. He is here today to arrange for a generator change. He has no other complaints. His device has not had any issues since implantation. The pocket site is comfortable for him and he is not requesting any pocket revision. He has never had any ICD shocks while he has had the ICD. 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 Jacome has a past medical history of Other specified health status (04/24/2014), Personal history of malignant neoplasm of brain (04/24/2014), and Personal history of other venous thrombosis and embolism (04/24/2014). has a past surgical history that includes Other surgical history (04/24/2014); Other surgical history (04/24/2014); Other surgical history (04/18/2021); Other surgical history (04/18/2021); and Other surgical history (04/18/2021). Social History: Social History Tobacco Use Smoking status: Never Smokeless tobacco: Never Substance Use Topics Alcohol use: Never Tobacco: Denies Alcohol: Denies Drug use: Denies Relevant Family History: Family History Problem Relation Name Age of Onset Hypotension Mother Heart attack Father Allergies: Allergies Allergen Reactions Aspirin GI bleeding Medications: Current Outpatient Medications Medication Instructions carvedilol (COREG) 6.25 mg, oral, 2 times daily (morning and late afternoon) eplerenone (INSPRA) 25 mg, oral, Daily furosemide (LASIX) 20 mg, oral, Daily lisinopril 2.5 mg, oral, Daily rosuvastatin (CRESTOR) 20 mg, oral, Daily warfarin (Coumadin) 5 mg tablet oral, See admin instructions, As directed per PCP Objective Physical Exam: Last Recorded Vitals: 05/02/2021 8:27 AM 12/13/2021 8:48 AM 04/03/2022 2:27 PM 07/14/2022 3:41 PM 01/12/2023 2:17 PM 11/05/2023 8:57 AM 02/26/2024 9:26 AM Vitals Systolic 137 128 130 122 130 115 Diastolic 76 80 80 78 90 79 Heart Rate 81 80 80 72 82 88 Temp 36.1 C (96.9 F) Resp 16 Height (in) 1.753 m (5' 9 ) 1.753 m (5' 9 ) 1.753 m (5' 9 ) 1.753 m (5' 9 ) 1.753 m (5' 9 ) 1.803 m (5' 11 ) 1.803 m (5' 11 ) Weight (lb) 165 160 162 162 161 157 153 BMI 24.37 kg/m2 23.63 kg/m2 23.92 kg/m2 23.92 kg/m2 23.78 kg/m2 21.9 kg/m2 21.34 kg/m2 BSA (m2) 1.91 m2 1.88 m2 1.89 m2 1.89 m2 1.89 m2 1.89 m2 1.86 m2 Visit Report Report Report Visit Vitals BP 115/79 Pulse 88 Temp 36.1 C (96.9 F) Resp 16 Ht 1.803 m (5' 11 ) Wt 69.4 kg (153 lb) SpO2 98% BMI 21.34 kg/m Smoking Status Never BSA 1.86 m Gen: NAD, sitting comfortably HEENT: NC/AT Chest: Device in situ in left upper chest, no overlying erythema or tenderness Card: RRR, no m/r/g Pulm: Clear to auscultation bilaterally Ext: No LE edema Neuro: No focal deficits Diagnostic Results My Interpretation of Reviewed Study(s): Prior ECGs (reviewed and my interpretation): 02/26/2024: Atrial paced, ventricular sensed rhythm, right bundle branch block, left anterior fascicular block, HR 75bpm Echocardiography: No recent echocardiograms Stress Test: 07/2019: Large prior infarct, 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 He does have chronic atrial lead noise reversion. Relevant Labs: No results found for: CREATININE , CCL , K , HGBA1C , HGB , INR , AST , ALT Assessment/Plan Assessment and Plan: Donovan Jacome is a 88 y.o. year old male patient who is referred for management and evaluation of his ICD, initially placed in 2002, at [facility]. He will need a generator change. He has an atrial pacesetter lead as well as a Riata lead. The atrial lead has some chronic noise reversion, but does not seem to have caused much of an issue. There have been no issues with the Riata lead. Thus, there is no need for extraction of the leads at this time. He will need routine generator change of his device at [facility]. His device will reach end-of-life in April. The risks and benefits of generator change were discussed in detail, including infection, bleeding, hematoma, damage to the existing leads, etc. The patient is agreeable to move forward with generator change. Name: Donovan Jacome Attending: Nicole Rose MD Procedure: ICD generator change Date desired: As soon as possible Diagnosis: Device at [facility] Vendor if applicable: [employer] Expected anesthesia: RN sedation Isolation/precautions?: None Other comments/med instructions: Check INR next week. INR goal 2.0-3.0 for the procedure. Hold all medications on the morning of the procedure. N.p.o. 2 hours prior to GEN change. Return to Clinic: After generator change Thank you very much for allowing me to participate in the care of this patient. Please do not hesitate to contact me with any further questions or concerns. Nicole Rose MD Clinical Cardiac [employer], [facility] [place] Chemical Mixerlead care manager, [facility] [employer] Director of Atrial Fibrillation Ablation, [facility] [employer]arer of Ventricular Arrhythmias Research, [facility] Office [facility] Work Phone: 03-04-2024 History and physical note H&P reviewed. The patient was examined and there are no changes to the H&P. Source Note - Nicole Rose MD - 02/26/2024 9:45 AM EDT Images from the original note were not included. Referring Provider: Roslyn Mckenzie MD Reason for Consult: Generator change History of Present Illness: Donovan Jacome is a 88 y.o. year old male patient with a history significant for dilated cardiomyopathy status post ICD, hypertension, hyperlipidemia who is referred by Dr. Mckenzie for generator change for device at [facility]. 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 He has an atrial pacesetter lead as well as a Riata lead in the RV. He has chronic atrial lead noise reversion episodes. He has 98% atrial paced and ventricular plate paced less than 1% the time. His device reached [facility] in January 2024. He is here today to arrange for a generator change. He has no other complaints. His device has not had any issues since implantation. The pocket site is comfortable for him and he is not requesting any pocket revision. He has never had any ICD shocks while he has had the ICD. 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 Jacome has a past medical history of Other specified health status (04/24/2014), Personal history of malignant neoplasm of brain (04/24/2014), and Personal history of other venous thrombosis and embolism (04/24/2014). has a past surgical history that includes Other surgical history (04/24/2014); Other surgical history (04/24/2014); Other surgical history (04/18/2021); Other surgical history (04/18/2021); and Other surgical history (04/18/2021). Social History: Social History Tobacco Use Smoking status: Never Smokeless tobacco: Never Substance Use Topics Alcohol use: Never Tobacco: Denies Alcohol: Denies Drug use: Denies Relevant Family History: Family History Problem Relation Name Age of Onset Hypotension Mother Heart attack Father Allergies: Allergies Allergen Reactions Aspirin GI bleeding Medications: Current Outpatient Medications Medication Instructions carvedilol (COREG) 6.25 mg, oral, 2 times daily (morning and late afternoon) eplerenone (INSPRA) 25 mg, oral, Daily furosemide (LASIX) 20 mg, oral, Daily lisinopril 2.5 mg, oral, Daily rosuvastatin (CRESTOR) 20 mg, oral, Daily warfarin (Coumadin) 5 mg tablet oral, See admin instructions, As directed per PCP Objective Physical Exam: Last Recorded Vitals: 05/02/2021 8:27 AM 12/13/2021 8:48 AM 04/03/2022 2:27 PM 07/14/2022 3:41 PM 01/12/2023 2:17 PM 11/05/2023 8:57 AM 02/26/2024 9:26 AM Vitals Systolic 137 128 130 122 130 115 Diastolic 76 80 80 78 90 79 Heart Rate 81 80 80 72 82 88 Temp 36.1 C (96.9 F) Resp 16 Height (in) 1.753 m (5' 9 ) 1.753 m (5' 9 ) 1.753 m (5' 9 ) 1.753 m (5' 9 ) 1.753 m (5' 9 ) 1.803 m (5' 11 ) 1.803 m (5' 11 ) Weight (lb) 165 160 162 162 161 157 153 BMI 24.37 kg/m2 23.63 kg/m2 23.92 kg/m2 23.92 kg/m2 23.78 kg/m2 21.9 kg/m2 21.34 kg/m2 BSA (m2) 1.91 m2 1.88 m2 1.89 m2 1.89 m2 1.89 m2 1.89 m2 1.86 m2 Visit Report Report Report Visit Vitals BP 115/79 Pulse 88 Temp 36.1 C (96.9 F) Resp 16 Ht 1.803 m (5' 11 ) Wt 69.4 kg (153 lb) SpO2 98% BMI 21.34 kg/m Smoking Status Never BSA 1.86 m Gen: NAD, sitting comfortably HEENT: NC/AT Chest: Device in situ in left upper chest, no overlying erythema or tenderness Card: RRR, no m/r/g Pulm: Clear to auscultation bilaterally Ext: No LE edema Neuro: No focal deficits Diagnostic Results My Interpretation of Reviewed Study(s): Prior ECGs (reviewed and my interpretation): 02/26/2024: Atrial paced, ventricular sensed rhythm, right bundle branch block, left anterior fascicular block, HR 75bpm Echocardiography: No recent echocardiograms Stress Test: 07/2019: Large prior infarct, 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 He does have chronic atrial lead noise reversion. Relevant Labs: No results found for: CREATININE , CCL , K , HGBA1C , HGB , INR , AST , ALT Assessment/Plan Assessment and Plan: Donovan Jacome is a 88 y.o. year old male patient who is referred for management and evaluation of his ICD, initially placed in 2002, at [facility]. He will need a generator change. He has an atrial pacesetter lead as well as a Riata lead. The atrial lead has some chronic noise reversion, but does not seem to have caused much of an issue. There have been no issues with the Riata lead. Thus, there is no need for extraction of the leads at this time. He will need routine generator change of his device at [facility]. His device will reach end-of-life in April. The risks and benefits of generator change were discussed in detail, including infection, bleeding, hematoma, damage to the existing leads, etc. The patient is agreeable to move forward with generator change. Name: Donovan VIGILN: [id number] Attending: Nicole Rose MD Procedure: ICD generator change Date desired: As soon as possible Diagnosis: Device at [facility] Vendor if applicable: [employer] Expected anesthesia: RN sedation Isolation/precautions?: None Other comments/med instructions: Check INR next week. INR goal 2.0-3.0 for the procedure. Hold all medications on the morning of the procedure. N.p.o. 2 hours prior to GEN change. Return to Clinic: After generator change Thank you very much for allowing me to participate in the care of this patient. Please do not hesitate to contact me with any further questions or concerns. Nicole Rose MD Clinical Cardiac [employer], [facility] [place] [employer] Mixerlead care manager, [facility] [employer] Director of Atrial Fibrillation Ablation, [facility] Preparer of Ventricular Arrhythmias Research, [facility] Office documented in this encounter [facility] Work Phone: 03-04-2024 Nurse Note Discharge instructions reviewed with patient and son. Discussed in depth post procedure restrictions and follow up appointments. Questions and concerns addressed. Left upper chest remains stable and unchanged. Plan to dc home. [facility] Work Phone: 03-04-2024 Nurse Note Discharge instructions reviewed with patient and son. Discussed in depth post procedure restrictions and follow up appointments. Questions and concerns addressed. Left upper chest remains stable and unchanged. Plan to dc home. Patient returned from EP lab, sp ICD gen change. Left upper chest incision closed with aquacel dressing and CDI. Ice pack applied to site. Patient A&Ox4 and has no c/o at this time. VSS. Family at bedside, will continue to monitor. documented in this encounter [facility] Work Phone: 03-04-2024 Nurse Note Patient returned from EP lab, sp ICD gen change. Left upper chest incision closed with aquacel dressing and CDI. Ice pack applied to site. Patient A&Ox4 and has no c/o at this time. VSS. Family at bedside, will continue to monitor. [facility] Work Phone: 03-04-2024 Hospital Discharge instructions Aleena Fairbanks, [employer] TEACHER-LAUNDRY OPERATOR - 03/04/2024 3:39 PM EDT Images from the original note were not included. Home going instructions after a Pacemaker/ Defibrillator generator change After a procedure using sedation You should return home and rest for the remainder of the day and evening. It is recommended a responsible adult be with you for the first 24 hours after the procedure. Do not make any legal decisions for 24 hours after your procedure. Do not drink alcoholic beverages for 24 hours after your procedure. Wound care Leave the surgical dressing in place for 7 days post implant The dressing will be removed at the 1 week follow up appointment. The dressing is water resistant. You may shower and avoid water directly hitting the dressing. Inspect your incisional site/ dressing each day It is normal for the area around the incision to be tender for a few weeks following surgery. Apply ice to the site 3-4 times per day in 20 minute intervals for at least 2 days after surgery. Pain relievers such as Tylenol or Motrin are usually sufficient for pain relief. Activity Avoid driving for 24 hours If you have had passing out spells or previously restricted from driving, discuss driving restrictions with your doctor. Report to your physician Increased redness, swelling, drainage or gaping of your incisional site Increased pain at site unrelieved by pain medication Fever or chills prior to the 1 week appointment Bright red bleeding from the incisional site or complete saturation of the dressing Dizziness, lightheadedness, or passing out Remote monitoring/ Device ID card You have been instructed by the device company loan servicing representative regarding remote home monitoring. There are multiple types of home monitoring units, please follow the instructions given If you have questions please contact the device clinic for further instruction After implant you will receive a temporary card. Permanent card will come in the mail in the next few weeks. It is important that you carry your ID card with you at all times. Follow up appointments Incision (wound) check in 1 week Appointment for device check and provider follow up in 6 months These appointments will be scheduled and appear on your after visit summary documented in this encounter [facility] Work Phone: 03-04-2024 Note Formatting of this n ote might be different from the original. Sedation Plan ASA 2 Mallampati class: I. Risks, benefits, and alternatives discussed with patient. [facility] Work Phone: 03-04-2024 Miscellaneous Notes Sedation Plan ASA 2 Mallampati class: I. Risks, benefits, and alternatives discussed with patient. documented in this encounter [facility] Work Phone: 02-26-2024 History of Present illness Narrative Images from the original note were not included. Referring Provider: Roslyn Mckenzie MD Reason for Consult: Generator change History of Present Illness: Donovan Jacome is a 88 y.o. year old male patient with a history significant for dilated cardiomyopathy status post ICD, hypertension, hyperlipidemia who is referred by Dr. Mckenzie for generator change for device at [facility]. 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 He has an atrial pacesetter lead as well as a Riata lead in the RV. He has chronic atrial lead noise reversion episodes. He has 98% atrial paced and ventricular plate paced less than 1% the time. His device reached [facility] in January 2024. He is here today to arrange for a generator change. He has no other complaints. His device has not had any issues since implantation. The pocket site is comfortable for him and he is not requesting any pocket revision. He has never had any ICD shocks while he has had the ICD. 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 Jacome has a past medical history of Other specified health status (04/24/2014), Personal history of malignant neoplasm of brain (04/24/2014), and Personal history of other venous thrombosis and embolism (04/24/2014). has a past surgical history that includes Other surgical history (04/24/2014); Other surgical history (04/24/2014); Other surgical history (04/18/2021); Other surgical history (04/18/2021); and Other surgical history (04/18/2021). Social History: Social History Tobacco Use Smoking status: Never Smokeless tobacco: Never Substance Use Topics Alcohol use: Never Tobacco: Denies Alcohol: Denies Drug use: Denies Relevant Family History: Family History Problem Relation Name Age of Onset Hypotension Mother Heart attack Father Allergies: Allergies Allergen Reactions Aspirin GI bleeding Medications: Current Outpatient Medications Medication Instructions carvedilol (COREG) 6.25 mg, oral, 2 times daily (morning and late afternoon) eplerenone (INSPRA) 25 mg, oral, Daily furosemide (LASIX) 20 mg, oral, Daily lisinopril 2.5 mg, oral, Daily rosuvastatin (CRESTOR) 20 mg, oral, Daily warfarin (Coumadin) 5 mg tablet oral, See admin instructions, As directed per PCP Objective Physical Exam: Last Recorded Vitals: 05/02/2021 8:27 AM 12/13/2021 8:48 AM 04/03/2022 2:27 PM 07/14/2022 3:41 PM 01/12/2023 2:17 PM 11/05/2023 8:57 AM 02/26/2024 9:26 AM Vitals Systolic 137 128 130 122 130 115 Diastolic 76 80 80 78 90 79 Heart Rate 81 80 80 72 82 88 Temp 36.1 C (96.9 F) Resp 16 Height (in) 1.753 m (5' 9 ) 1.753 m (5' 9 ) 1.753 m (5' 9 ) 1.753 m (5' 9 ) 1.753 m (5' 9 ) 1.803 m (5' 11 ) 1.803 m (5' 11 ) Weight (lb) 165 160 162 162 161 157 153 BMI 24.37 kg/m2 23.63 kg/m2 23.92 kg/m2 23.92 kg/m2 23.78 kg/m2 21.9 kg/m2 21.34 kg/m2 BSA (m2) 1.91 m2 1.88 m2 1.89 m2 1.89 m2 1.89 m2 1.89 m2 1.86 m2 Visit Report Report Report Visit Vitals BP 115/79 Pulse 88 Temp 36.1 C (96.9 F) Resp 16 Ht 1.803 m (5' 11 ) Wt 69.4 kg (153 lb) SpO2 98% BMI 21.34 kg/m Smoking Status Never BSA 1.86 m Gen: NAD, sitting comfortably HEENT: NC/AT Chest: Device in situ in left upper chest, no overlying erythema or tenderness Card: RRR, no m/r/g Pulm: Clear to auscultation bilaterally Ext: No LE edema Neuro: No focal deficits Diagnostic Results My Interpretation of Reviewed Study(s): Prior ECGs (reviewed and my interpretation): 02/26/2024: Atrial paced, ventricular sensed rhythm, right bundle branch block, left anterior fascicular block, HR 75bpm Echocardiography: No recent echocardiograms Stress Test: 07/2019: Large prior infarct, 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 He does have chronic atrial lead noise reversion. Relevant Labs: No results found for: CREATININE , CCL , K , HGBA1C , HGB , INR , AST , ALT Assessment/Plan Assessment and Plan: Donovan Jacome is a 88 y.o. year old male patient who is referred for management and evaluation of his ICD, initially placed in 2002, at [facility]. He will need a generator change. He has an atrial pacesetter lead as well as a Riata lead. The atrial lead has some chronic noise reversion, but does not seem to have caused much of an issue. There have been no issues with the Riata lead. Thus, there is no need for extraction of the leads at this time. He will need routine generator change of his device at [facility]. His device will reach end-of-life in April. The risks and benefits of generator change were discussed in detail, including infection, bleeding, hematoma, damage to the existing leads, etc. The patient is agreeable to move forward with generator change. Name: Donovan Jacome Attending: Nicole Rose MD Procedure: ICD generator change Date desired: As soon as possible Diagnosis: Device at [facility] Vendor if applicable: [place] Expected anesthesia: RN sedation Isolation/precautions?: None Other comments/med instructions: Check INR next week. INR goal 2.0-3.0 for the procedure. Hold all medications on the morning of the procedure. N.p.o. 2 hours prior to GEN change. Return to Clinic: After generator change Thank you very much for allowing me to participate in the care of this patient. Please do not hesitate to contact me with any further questions or concerns. Nicole Rose MD Clinical Cardiac [employer], [facility] [place] [employer] Mixerlead care manager, [facility] [employer] Director of Atrial Fibrillation Ablation, [facility] [employer] of Ventricular Arrhythmias Research, [facility] Office documented in this encounter [facility] Work Phone: 11-05-2023 History of Present illness Narrative Subjective [...] Scribe Attestation By signing my name below, IAleenaCeleste Aguirre LPN attest that this documentation has been prepared [...] discussion and plan. documented in this encounter [facility] Work Phone: 11-05-2023 Instructions Dex Crump [...] of your visit. documented in this encounter [facility] Work Phone: 08-06-2023 History of Present [...] and renal disease with (congestive) heart failure ([facility]) - TSH; Future - Comprehensive metabolic panel; Future Blood pressure at goal. Continue current regimen. Check CMP and TSH. Hyperlipidemia, unspecified hyperlipidemia type - Lipid panel; Future Check lipid panel Stage 4 chronic kidney disease ([facility]) TSH; Future Check TSH and CMP. Type 2 diabetes mellitus without complication, without long-term current use of insulin ([facility]) - Hemoglobin A1c; Future - TSH; Future Check A1c. Hyperparathyroidism ([facility]) Check kidney function test. Malignant melanoma of scalp or neck ([facility]) He does not want to go back to see the specialist. I am not sure what surgery the specialist had planned Longstanding persistent atrial fibrillation ([facility]) Seems to be in sinus rhythm now. Continue Eliquis Paroxysmal atrial fibrillation ([facility]) Microalbuminuric diabetic nephropathy ([facility]) Check labs [facility] History of Present illness Narrative Subjective [...] orders for this visit: Paroxysmal atrial fibrillation ([facility]) - Protime & INR; Future New [...] Check lipid panel documented in this encounter [employer] Evaluation note No assessment inform ation available [facility] Work Phone: Evaluation note N/A Dept. of Dermato logy Evaluation note Diagnosis Paroxysmal atrial fibrillation (CMS-HCC)- Primary Atrial fibrillation 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) Essential hypertension Unspecified essential hypertension Hypothyroidism, unspecified type Type 2 diabetes mellitus without complication, without long-term current use of insulin ([facility]) Arteriosclerotic vascular disease Generalized and unspecified atherosclerosis documented in this encounter [facility] [place] [facility]* Diagnosis Longstanding persistent atrial fibrillation (CMS-HCC)- Primary documented in this encounter [facility] [place] [facility]* Diagnosis Hypertensive heart and renal [...] fibrillation (CMS-HCC) Atrial fibrillation Microalbuminuric diabetic nephropathy ([facility]) [facility] Diagnosis Type 2 diabetes mellitus without complication, without long-term current use of insulin (CMS-HCC)- Primary 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) documented in this encounter [facility] [place] System[facility]* Diagnosis Arteriosclerotic cardiovascular disease (ASCVD)- Primary Unspecified cardiovascular disease Essential hypertension Unspecified essential hypertension Mixed hyperlipidemia Ventricular tachycardia (Multi) Paroxysmal ventricular tachycardia ICD (implantable cardioverter-defibrillator) in place Dilated cardiomyopathy (Multi) Other primary cardiomyopathies Ischemic cardiomyopathy Other specified forms of chronic ischemic heart disease documented in this encounter [facility] Work Phone: Evaluation note* Diagnosis ICD (implantable cardioverter-defibrillator) in place Ventricular tachycardia (Multi) Paroxysmal ventricular tachycardia Ischemic cardiomyopathy Other specified forms of chronic ischemic heart disease ICD (implantable cardioverter-defibrillator) in place Ventricular tachycardia (Multi) Paroxysmal ventricular tachycardia ICD (implantable cardioverter-defibrillator) in place Ventricular tachycardia (Multi) Paroxysmal ventricular tachycardia documented in this encounter [facility] Work Phone: Evaluation note* Diagnosis ICD (implantable cardioverter-defibrillator) in place- Primary Ventricular tachycardia (Multi) Paroxysmal ventricular tachycardia documented in this encounter [facility] Work Phone: Evaluation note* Diagnosis Hypertension associated with 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 ([facility])- Primary Hypertensive 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 ([facility] Cardiomyopathy ([facility]) Stage 4 chronic kidney disease ([facility]) Type 2 diabetes mellitus without complication, without long-term current use of insulin ([facility]) [facility] encounter [facility] Diagnosis Vitamin D deficiency- Primary [facility] Patient [...] the above we will continue as is. -[facility]-Shahzad 250 DO Work Phone: History of Present [...] the above we will continue as is. [facility] of Present [...] above we suggest continued therapy as before- [facility]ron[facility] 250 DO Work Phone: History of Present illness Narrative* 86-year-old man referred by Dr. Kumari for management of a melanoma of the [...] significant cardiac hx with decreased cardiac function [facility] Work Phone: History of Present illness NarrativePatient [...] we believe his cardiac status to be stable.[facility]-Shahzad 250 DO Work Phone: History [...] we suggested continued therapy as before without change.[facility] 250 DO Work Phone: InstructionsNot on filedocumented in this encounter [facility] filedocument[facility] in this [facility] SystemInstructionsNot on filedocumented in this encounter [facility] System[facility]ructionsNot on filedocumented in this encounter [facility] System[facility]ructionsNot on filedocumented in this encounter [facility] SystemReason for referral (narrative)* Name Reason for referral NA NA Dept. of Dermatology Reason for referral (narrative)* Consultation (Routine) - Authorized Specialty Diagnoses / Procedures Referred By Nuvia ware Referred To Contact Cardiology Diagnoses Arteriosclerotic cardiovascular disease (ASCVD) Procedures Follow Up In Cardiology Aidan Langston MD [facility] [facility], [address] [address] Roslyn Mckenzie MD [facility] [facility], [address] [address] Referral ID Status Reason Start Date Expiration Date V isits Requested Visits Authorized [id number] Authorized 11/05/2023 11/04/2024 1 1 [facility] Work Phone: Reason for visit Narrative* Auth/Cert Specialty Diagnoses / Procedures Referred By Contac t Referred To Contact Diagnoses ICD (implantable cardioverter-defibrillator) in place Ventricular tachycardia (Multi) ICD (implantable cardioverter-defibrillator) in place [Z95.810] Ventricular tachycardia (Multi) [I47.20] Procedures MI RMVL IMPLTBL DFB PLSE GEN W/RPLCMT PLSE GEN 2 LD ICD DC Generator Change Nicole Rose MD [address] [place] [address] [facility] [address] [place] [address] Referral ID Status Reason Start Date Expiration Date Visits Re quested Visits Authorized [id number] 1 1 [facility] Work Phone: Summary Purpose Family History [...] Advance Directives No March 20, 2017 12:25pm Date Activated Date Inactivated Comments 03/04/2024 12:04 PM Question Answer Comments Plan of Care: Code Status Discussion Not Compl eted Decision Maker: Provider Rationale: Patient condition does not warra nt discussion Chief Complaint DONOVAN JACOME is being seen [...] Complaint i42.9 Chief Complaint i42.9 i47.20 z95.810 Reason for Referral Specialty Diagnoses / Procedures Referred By Contac t Referred To Contact Diagnoses ICD (implantable cardioverter-defibrillator) in place Procedures ECG 12 Lead Nicole Rose MD [facility] [place] [address] Referral ID Status Reason Start Date Expiration Date V isits Requested Visits Authorized [id number] Authorized 02/26/2024 02/25/2025 1 1 Specialty Diagnoses / Procedures Referred By Contac t Referred To Contact Cardiology Diagnoses ICD (implantable cardioverter-defibrillator) in place Procedures Cardiac Device Check - In Clinic Aleena Fairbanks, PLANT TAXONOMY TEACHER-[facility] [address] [facility], [facility] [address] [place] [address] Referral ID Status Reason Start Date Expiration Date Visits Requested Visits Authorized [id number] Pending Review Perform Procedure 03/04/2025 1 1 Specialty Diagnoses / Procedures Referred By Contac t Referred To Contact Cardiology Diagnoses ICD (implantable cardioverter-defibrillator) in place Procedures Follow Up In Cardiology Aleena Fairbanks, PLANT TAXONOM[employer] TEACHER-LAUNDR[employer] OPERATOR [address] [facility], [facility] [address] [place] [address] Referral ID Status Reason Start Date Expiration Date V isits Requested Visits Authorized [id number] Authorized 03/04/2024 03/04/2025 1 1 Additional Source Comments (unrecognized sect ion and content) No Status Records FoundNo Status Records FoundNo Status Records FoundNo Status Records FoundNo Status Records FoundNo Status Records FoundNo Status Records FoundNo Status Records FoundNo Status Records FoundNo Status Records FoundNo Status Records Found INFORMATION SOURCE (unrecogn ized section and content) DATE CREATED AUTHOR 08/08/2019 [facility] DATE CREATED AUTHOR AUTHOR'S ORGANIZ ATION 02/27/2020 [facility] DATE CREATED AUTHOR AUTHOR'S ORGANIZ ATION 08/24/2021 [facility] DATE CREATED AUTHOR AUTHOR'S ORGANIZ ATION 10/27/2022 [facility] DATE CREATED AUTHOR AUTHOR'S ORGANIZ ATION 01/14/2023 [facility] DATE CREATED AUTHOR AUTHOR'S ORGANIZ ATION 03/06/2024 [facility] DATE CREATED AUTHOR AUTHOR'S ORGANIZ ATION 03/06/2024 [facility] DATE CREATED AUTHOR AUTHOR'S ORGANIZ ATION 03/08/2024 [facility] DATE CREATED AUTHOR AUTHOR'S ORGANIZ ATION 03/09/2024 [facility] DATE CREATED AUTHOR AUTHOR'S ORGANIZ ATION 03/13/2024 [facility] DATE CREATED AUTHOR AUTHOR'S ORGANIZ ATION 03/24/2024 [facility] Care Teams (unrecognized sec tion and content) Team Status: Active Member Role Status Dates Phil Morin DO Primary Care Provider Active Team Status: Inactive Member Role Status Dates Phil Morin DO Primary Care Provider Active Aidan Langston MD Attending Provider Active Biology Instructor Relationship Specialty Start Date End Date Phil Morin DO [address], [place] [address] PCP - General Family Medicine 03/07/22 Team Status: Inactive Member Role Status Dates Phil Morin DO Primary Care Provider Active Start: June 28, 2023 End: June 28, 2023 Aidan Langston MD Attending Provider Active Start: June 28, 2023 End: June 28, 2023 Biology Instructor Relationship Specialty Start Date End Date Phil Morin DO [address], [place] [address] PCP - General Family Medicine 03/07/22 Biology Instructor Relationship Specialty Start Date End Date Phil Morin DO [address], [place] [address] PCP - General Family Medicine 03/07/22 Biology Instructor Relationship Specialty Start Date End Date Phil Morin DO [address], [place] [address] PCP - General Family Medicine 03/07/22 Biology Instructor Relationship Specialty Start Date End Date Phil Morin DO [address] [place] [address] [address] [place] [address] PCP - General Family Medicine 03/07/22 Team Status: Inactive Member Role Status Dates Phil ReynagadestinyDO yrn Primary Care Provider Active Start: September 27, 2023 End: September 27, 2023 Aidan Langston MD Attending Provider Active Start: September 27, 2023 End: September 27, 2023 Biology Instructor Relationship Specialty Start Date End Date Phil Morin DO [address], [place] [address] PCP - General 05/06/14 Team Status: Inactive Member Role Status Dates Phil RonnelldestinyDO yrn Primary Care Provider Active Start: December 27, 2023 End: December 27, 2023 Aidan Langston MD Attending Provider Active Start: December 27, 2023 End: December 27, 2023 Team Status: Inactive Member Role Status Dates Phil ReynagadestinyDO yrn Primary Care Provider Active Start: February 05, 2024 End: February 05, 2024 Roslyn Mckenzie MD Attending Provider Active Start: February 05, 2024 End: February 05, 2024 Biology Instructor Relationship Specialty Start Date End Date Phil Morin DO [address], [place] [address] PCP - General Family Medicine 02/26/24 Biology Instructor Relationship Specialty Start Date End Date Phil Morin DO [address] [place] [address] [address] PCP - General Family Medicine 02/26/24 Goals (unrecognized section and content) Goals may [...] Comments Hypertension Hyperlipidemia Reason Comments Follow-up 9m Reason Comments Rapid Heart Rate Specialty Diagnoses / Procedures Referred By Contac t Referred To Contact Cardiology Diagnoses ICD (implantable cardioverter-defibrillator) in place Ventricular tachycardia (Multi) Ischemic cardiomyopathy Roslyn Mckenzie MD [address] [facility], [address] [address] Referral ID Status Reason Start Date Expiration Date Visits Requested Visits Authorized [id number] Authorized Specialty Services Required 02/12/2024 02/11/2025 1 1 Scheduled Active and Recently Administ ered Medications (unrecognized section and content) Medication Order 03/02/2024 03/03/2024 03/04/2024 ceFAZolin (Ancef) 1 g in dextrose (iso) IV 50 mL (COMPLETED) 1 g, intravenous, at 100 mL/hr, Administer over 30 Minutes, Once, On Sun03/04/24 at 1230, For 1 dose, Preprocedure, Administer within 60 minutes prior to incision. premix bag, Dosing of this medication varies based on severity of illness. Does this patient have sepsis or concern for sepsis (probable or documented infection plus systemic manifestations of infection)? No, Suspected Indication (Select all that apply): Surgical Prophylaxis, Indications: Surgical Prophylaxis 1230 (Due)1500 (New Bag - Provider: Jon Patiño RN - Comment: pre-op antibiotic)1512 (Stopped - Provider: Alycia Velasco RN) chlorhexidine (Hibiclens) 4 % liquid (COMPLETED) Topical, Once, On Sun03/04/24 at 1230, For 1 dose, Preprocedure, For pre-op skin preparation 1225 (Given - Provid er: Nikki Johnson, RN) mupirocin (Bactroban) 2 % ointment 1 Application (COMPLETED) 1 Application, Topical, Once, On Sun03/04/24 at 1230, For 1 dose, Preprocedure, Apply topically to both nares prior to procedure. Do not initiate until staph screening obtained first. 1225 (Given - Provid er: Nikki Johnson RN) PRN Medication Order 03/02/2024 03/03/2024 03/04/2024 acetaminophen (Tylenol) oral liquid 650 mg(Linked Group 1) 650 mg, oral, Every 4 hours PRN, pain mild (1-3), first line, Starting on Sun03/04/24 at 1537, Give oral liquid per feeding tube if present. acetaminophen (Tylenol) suppository 650 mg(Linked Group 1) 650 mg, rectal, Every 4 hours PRN, pain mild (1-3), first line, Starting on Sun03/04/24 at 1537, Give rectally if unable to administer by mouth or feeding tube., If ordered PRN for pain, nurse is permitted to administer this medication for higher pain scores based on patient preference? Yes acetaminophen (Tylenol) tablet 650 mg(Linked Group 1) 650 mg, oral, Every 4 hours PRN, pain mild (1-3), first line, Starting on Sun03/04/24 at 1537, If ordered PRN for pain, nurse is permitted to administer this medication for higher pain scores based on patient preference? Yes fentaNYL PF (Sublimaze) injection (CANCELED) As needed, Starting on Sun03/04/24 at 1507, Intraprocedure 1507 (Given - Provid er: Jon Patiño RN - Comment: sedation) lidocaine PF (Xylocaine) 10 mg/mL (1 %) injection (CANCELED) As needed, Starting on Sun03/04/24 at 1506, Intraprocedure 1506 (Given - Provid er: Nicole Rose MD) midazolam (Versed) injection (CANCELED) As needed, Starting on Sun03/04/24 at 1506, Intraprocedure 1506 (Given - Provid er: Jon Patiño RN - Comment: sedation) ondansetron (Zofran) injection 4 mg(Linked Group 2) 4 mg, intravenous, Every 8 hours PRN, nausea/vomiting, first line, Starting on Sun03/04/24 at 1537, 1st Line. Give IV if patient is unable to take orally. If inadequate response within 60 minutes, proceed to next-line agent for same PRN reason or contact provider if no further options ordered. When administering via IV Push, administer over 3-5 minutes. ondansetron (Zofran) tablet 4 mg(Linked Group 2) 4 mg, oral, Every 8 hours PRN, nausea/vomiting, first line, Starting on Sun03/04/24 at 1537, 1st Line. Use oral route first, if possible. If inadequate response within 60 minutes, proceed to next-line agent for same PRN reason or contact provider if no further options ordered. Linked Groups Order Group 1: acetaminophen (Tylenol) tablet 650 mgJump to med 650 mg, oral, Every 4 hours PRN, pain mild (1-3), first line, Starting on Sun03/04/24 at 1537, If ordered PRN for pain, nurse is permitted to administer this medication for higher pain scores based on patient preference? Yes Or acetaminophen (Tylenol) oral liquid 650 mgJump to med 650 mg, oral, Every 4 hours PRN, pain mild (1-3), first line, Starting on Sun03/04/24 at 1537, Give oral liquid per feeding tube if present. Or acetaminophen (Tylenol) suppository 650 mgJump to med 650 mg, rectal, Every 4 hours PRN, pain mild (1-3), first line, Starting on Sun03/04/24 at 1537, Give rectally if unable to administer by mouth or feeding tube., If ordered PRN for pain, nurse is permitted to administer this medication for higher pain scores based on patient preference? Yes Group 2: ondansetron (Zofran) tablet 4 mgJump to med 4 mg, oral, Every 8 hours PRN, nausea/vomiting, first line, Starting on Sun03/04/24 at 1537, 1st Line. Use oral route first, if possible. If inadequate response within 60 minutes, proceed to next-line agent for same PRN reason or contact provider if no further options ordered. Or ondansetron (Zofran) injection 4 mgJump to med 4 mg, intravenous, Every 8 hours PRN, nausea/vomiting, first line, Starting on Sun03/04/24 at 1537, 1st Line. Give IV if patient is unable to take orally. If inadequate response within 60 minutes, proceed to next-line agent for same PRN reason or contact provider if no further options ordered. When administering via IV Push, administer over 3-5 minutes. FOR RECORDS PERTAINING TO PATIENTS WHO ARE [...] BE BASED ON THE PRIMARY CLINICAL RECORDS. [id number]. provides no warranty or guarantee of the accuracy or completeness of information in this document.
[2024-04-16 09:41] LABS: Prothrombin Time 24.2 sec (9.0-11.6)
== END 2024-04-16 09:06 | disposition home or self-care (01) ==
LOC: LAB 09:06
PROVIDERS: PCP Family Medicine; Visit Provider Family Medicine
DX: I48.11 Longstanding persistent atrial fibrillation (principal)
CPT/HCPCS: 36415; 85610

== ENCOUNTER 2024-05-16 08:53 | Outpatient (OUT) | payer MEDICARE, SELFPAY ==
--- OUTSIDE RECORDS SUMMARY | 2024-05-16 09:11 | XMS_ITS | CCD ---
Author Organization [facility] Providers Care Lead Generator Name Role Phone Phil Morin Unavailable Unavailable [...] Unavailable KUNS, DR JARON Roger Consulting Unavailable KUNS, DR JARON Roger [...] JARON Roger Attending Unavailable KUNS, DR JARON Rgoer Admitting Unavailable FURLONG, DR [...] Provider Phil Morin DO Primary Care Provider [phone] Corey, DO Villarreal Primary Care Provider MD Aidan Langston Attending Provider Furdestinyng, DO Villarreal Primary Care Provider MD Aidan Langston Attending Provider Phil Morin DO Primary Care Provider [place], DO Villarreal Primary Care Provider MD Aidan Langston Attending Provider MD L[facility] Attending Provider Furlong DO, Phil Forrest Primary Care Provider ELLIE ROSECarmen Attending Unavailable FURLONG, PHIL ADWOA Primary Care Unavailab le TRABOULSSIADRI Referring Unavailable FURLONG, PHIL ADWOA Primary Care [...] Furlong, Phil Primary Care Unavailable Aidan Langston Attending Unavail able McGuinnAidan Admitting Unavail able McGuinnAidan Admitting Unavail able Furlong, Phil Primary Care Unavailable Aidan Langston Attending Unavail able McGuinnAidan Admitting Unavail able Furlong, Phil Primary Care Unavailable Aidan Langston Attending Unavail able Furlong, Phil Primary Care Unavailable Traboulssi, Lennyhaf Attending Unavailable Traboulssi, Chasf Admitting Unavailable Allergies Allergy Classification Reported Allergen(s) Allergy Type Date of Onset Reaction(s) Facility (20 sources) Aspirin; Translations: [aspirin] Drug Allergy 2 Other (See Comments), GI bleeding -[employer] 250 DO Work Phone: (1 source) No [...] sources) Taking high risk medication; Translations: [Other penitentiary (current) drug therapy] Onset: 03-01-2023 03-01-2023 Episodic [...] (GLYCO-HGB)on 2023 Glucose [Mass/Vol] 131 mg/dL Normal [facility] Comment on above: Performed By: #### H A1C, 65547-3, 2777-1, 3084-1, 2731-8, 86301-9 #### [facility] ([id number]) [address], [address] [place] [address] HbA1c (Bld) [Mass fraction] 6.2 % High 4.4-5.6 [facility] Comment on above: Result Comment: NOTE ADA Guidelines Result HgbA1c Normal : less than 5.7 % Prediabetes : 5.7 % to 6.4 % Diabetes : > 6.4 % Use with caution in patients with abnormal hemoglobin variants as the half-life of red blood cells and in vivo glycation rates are affected. Performed By: #### H A1C, 81125-4, 2777-1, 3084-1, 2731-8, 97451-2 #### [facility] ([id number]) [address] [place] [address] MAGNESIUMon 03-06-2024 Magnesium [Mass/Vol] 2.3 mg/dL Normal 1.8-2.6 [facility] Comment on above: Performed By: #### H A1C, 09138-2, 2777-1, 3084-1, 2731-8, 75483-2 #### [facility] ([id number]) [address], [address] [place] [address] PHOSPHORUSon 03-06-2024 Phosphate [Mass/Vol] 4.2 mg/dL Normal 2.4-4.9 [facility] Comment on above: Performed By: #### H A1C, 99313-2, 2777-1, 3084-1, 2731-8, 57168-5 #### [facility] ([id number]) [address], [address] [place] [address] Parathyrin.intact [Mass/Vol] on 03-06-2024 PTH INTACT 203 pg/mL High 12-88 [facility] Comment on above: Performed By: #### H A1C, 07215-8, 2777-1, 3084-1, 2731-8, 65491-9 #### [facility] ([id number]) [address], [address] [place] [address] URIC ACIDon 03-06-2024 Urate [Mass/Vol] 8.6 mg/dL High 2.6-7.2 [facility] Comment on above: Performed By: #### H A1C, 06195-9, 2777-1, 3084-1, 2731-8, 07367-6 #### [facility] ([id number]) [address], [address] [place] [address] Vitamin D+Metabolites [Mass/ Vol]on 03-06-2024 VITAMIN D 25 HYD TOT 27.9 ng/mL Low 30-100 [facility] Comment on above: Result Comment: Vitamin D status 25 [place] Vitamin D Deficiency <20 ng/mL Insufficiency 20-29 ng/mL Sufficiency 30-100 ng/mL Toxicity >100 ng/mL NOTE: A pediatric reference range has not been established by the land resource specialist of this kit. The [place] [employer] recommends a Vitamin D level of = or >20ng/mL in infants and children. Performed By: #### H A1C, 17246-5, 2777-1, 3084-1, 2731-8, 33010-1 #### [facility] ([id number]) [address] [place] [address] Basic metabolic 2000 panelon 03-04-2024 Anion gap [Moles/Vol] 13 mmol/L 10 - 20 mmol/L [facility] Calcium [Mass/Vol] 9.2 mg/dL 8.6 - 10. 3 mg/dL [facility] Chloride [Moles/Vol] 106 mmol/L 98 - 107 mmol/L [facility] CO2 [Moles/Vol] 25 mmol/L 21 - 32 mmol/L [facility] Creatinine [Mass/Vol] 2.31 mg/dL High 0.50 - 1.30 mg/dL [facility] GFR/1.73 sq M.predicted among non-blacks MDRD (S/P/Bld) [Vol rate/Area] 26 mL/min/{1.73_m2} Low - PINF [facility] Comment on above: Calculations of katey mated GFR are performed using the 2020 CKD-EPI Study Refit equation without the race variable for the IDMS-Traceable creatinine methods. https://jasn.asnjournals.org/content//ASN.72388078 88 Glucose [Mass/Vol] 106 mg/dL High 74 - 99 mg/dL [facility] Interpretation and review of laboratory results Abnormal [facility] Potassium [Moles/Vol] 4.1 mmol/L 3.5 - 5.3 mmol/L [facility] Sodium [Moles/Vol] 140 mmol/L 136 - 145 mmol/L [facility] Urea nitrogen [Mass/Vol] 45 mg/dL High 6 - 23 mg/dL [facility] Anion gap [Moles/Vol] 13 mmol/L Normal 10-20 [facility] Comment on above: Performed By: #### 2 4321-2 #### CRYSTAL JURADO ([id number]) [facility] ([facility]) [address] [place] [address] Calcium [Mass/Vol] 9.2 mg/dL Normal 8.6-10.3 [facility] Comment on above: Performed By: #### 2 4321-2 #### MARCELOIBELIKRYSTAL JURADO ([id number]) [facility] ([facility]) [address] [place] [address] 24482 Chloride [Moles/Vol] 106 mmol/L Normal 98-107 [facility] Comment on above: Performed By: #### 2 4321-2 #### CRYSTAL JURADO ([id number]) [facility] ([facility]) [address] [place] [address] 13973 CO2 [Moles/Vol] 25 mmol/L Normal 21-32 [facility] Comment on above: Performed By: #### 2 4321-2 #### CRYSTAL JURADO ([id number]) [facility] ([facility]) [address] [place] [address]28 Creatinine [Mass/Vol] 2.31 mg/dL High 0.50-1.30 [facility] Comment on above: Performed By: #### 2 4321-2 #### CRYSTAL JURADO ([id number]) [facility] ([facility]) [address] [place] [address] 47648 Glomerular filtration rate/1.73 sq M.predicted 26 mL/min/1.73m*2 Low >60 [facility] Comment on above: Result Comment: Calc ulations of estimated GFR are performed using the 2020 CKD-EPI Study Refit equation without the race variable for the IDMS-Traceable creatinine methods. https://jasn.asnjournals.org/content//ASN.11993107 88 Performed By: #### 2 4321-2 #### CRYSTAL JURADO ([id number]) [facility] ([facility]) [address] [place] [address] Glucose [Mass/Vol] 106 mg/dL High 74-99 [facility] Comment on above: Performed By: #### 2 4321-2 #### CRYSTAL JURADO ([id number]) [facility] ([facility]) [address] [place] [address] Potassium [Moles/Vol] 4.1 mmol/L Normal 3.5-5.3 [facility] Comment on above: Performed By: #### 2 4321-2 #### CRYSTAL JURADO ([id number]) [facility] ([facility]) [address] [place] [address]116 Sodium [Moles/Vol] 140 mmol/L Normal 136-145 [facility] Comment on above: Performed By: #### 2 4321-2 #### CRYSTAL JURADO ([id number]) [facility] ([facility]) [address] [place] [address]2407 Urea nitrogen [Mass/Vol] 45 mg/dL High 6-23 [facility] Comment on above: Performed By: #### 2 4321-2 #### CRYSTAL JURADO ([id number]) [facility] ([facility]) [address] [place] [address] 51305 CBC panel Auto (Bld)on 03-04 Erythrocyte distribution width (RBC) [Ratio] 14.9 % High 11.5 - 14.5 % [facility] Hematocrit (Bld) [Volume fraction] 38.8 % Low 41.0 - 52.0 % [facility] Hemoglobin (Bld) [Mass/Vol] 12.6 g/dL Low 13.5 - 17.5 g/dL [facility] Interpretation and review of laboratory results Abnormal [facility] MCH (RBC) [Entitic mass] 28.7 pg 26.0 - 34.0 pg [facility] MCHC (RBC) [Mass/Vol] 32.5 g/dL 32.0 - 36.0 g/dL [facility] MCV (RBC) [Entitic vol] 88 fL 80 - 100 fL [facility] Nucleated RBC/100 WBC (Bld) [Ratio] 0.0 % [facility] Platelets (Bld) [#/Vol] 185 10*3/uL [facility] RBC (Bld) [#/Vol] 4.39 10*6/uL Low [facility] WBC (Bld) [#/Vol] 7.3 10*3/uL [facility] Erythrocyte distribution width (RBC) [Ratio] 14.9 % High 11.5-14.5 [facility] Comment on above: Performed By: #### 5 8410-2 #### CRYSTAL JURADO ([id number]) [facility] ([facility]) [address] [place] [address] 10529 Hematocrit (Bld) [Volume fraction] 38.8 % Low 41.0-52.0 [facility] Comment on above: Performed By: #### 5 8410-2 #### CRYSTAL JURADO ([id number]) [facility] ([facility]) [address] [place] [address] 58485 Hemoglobin (Bld) [Mass/Vol] 12.6 g/dL Low 13.5-17.5 [facility] Comment on above: Performed By: #### 5 8410-2 #### CRYSTAL JURADO ([id number]) [facility] ([facility]) [address] [place] [address] 07316 MCH (RBC) [Entitic mass] 28.7 pg Normal 26.0-34.0 [facility] Comment on above: Performed By: #### 5 8410-2 #### CRYSTAL JURADO ([id number]) [facility] ([facility]) [address] [place] [address] 24936 MCHC (RBC) [Mass/Vol] 32.5 g/dL Normal 32.0-36.0 [facility] Comment on above: Performed By: #### 5 8410-2 #### CRYSTAL JURADO ([id number]) [facility] ([facility]) [address] [place] [address] 26421 MCV (RBC) [Entitic vol] 88 fL Normal 80-100 [facility] Comment on above: Performed By: #### 5 8410-2 #### CRYSTAL JURADO ([id number]) [facility] ([facility]) [address] [place] [address] 18533 Nucleated RBC/100 WBC (Bld) [Ratio] 0.0 /100 WBCs Normal 0.0-0.0 [facility] Comment on above: Performed By: #### 5 8410-2 #### CRYSTAL JRUADO ([id number]) [facility] ([facility]) [address] [place] [address] 07160 Platelets (Bld) [#/Vol] 185 x10*3/uL Normal 150-450 [facility] Comment on above: Performed By: #### 5 8410-2 #### CRYSTAL JURADO ([id number]) [facility] ([facility]) [address] [place] [address] 61380 RBC (Bld) [#/Vol] 4.39 x10*6/uL Low 4.50-5.90 [facility] Comment on above: Performed By: #### 5 8410-2 #### CRYSTAL JURADO ([id number]) [facility] ([facility]) [address] [place] [address] 63006 WBC (Bld) [#/Vol] 7.3 x10*3/uL Normal 4.4-11.3 [facility] Comment on above: Performed By: #### 5 8410-2 #### CRYSTAL JURADO ([id number]) [facility] ([facility]) [address] [place] [address] 35241 ECG 12-LEADon 03-04-2024 ECG 12-LEAD Ventricular Rate 73 Atrial Rate 71 QRS Duration 142 Q-T Interval 588 QTC Calculation(Bazett) 647 R Lead -27 T Lead 76 QRS Count 12 Q Onset 225 T Offset 519 QTC Fredericia 628 Diagnosis Atrial-paced rhythm Right bundle branch block 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) T wave abnormality, consider lateral ischemia Abnormal ECG When compared with ECG of 30-APR-2014 08:20, Right bundle branch block is now Present Confirmed by Abraham Lewis ([id number]) on 03/05/2024 11:49:54 AM Normal [facility] PT and aPTT panel Coag (PPP) on 03-04-2024 aPTT Coag (PPP) [Time] 42 s High [facility] INR Coag (PPP) [Relative time] 2.3 {INR} High 0.9 - 1.1 [facility] Interpretation and review of laboratory results Abnormal [facility] PT Coag (PPP) [Time] 26.7 s High [facility] The APTT is no longe r used for monitoring Unfractionated Heparin Therapy. For monitoring Heparin Therapy, use the Heparin Assay. [facility] aPTT Coag (PPP) [Time] 42 s High 27-38 [facility] Comment on above: Order Comment: The A PTT is no longer used for monitoring Unfractionated Heparin Therapy. For monitoring Heparin Therapy, use the Heparin Assay. Performed By: #### 3 4529-8 #### CRYSTAL JURADO ([id number]) [facility] (EM) [address] [place] [address] 02284 INR Coag (PPP) [Relative time] 2.3 High 0.9-1.1 [facility] Comment on above: Order Comment: The A PTT is no longer used for monitoring Unfractionated Heparin Therapy. For monitoring Heparin Therapy, use the Heparin Assay. Performed By: #### 3 4529-8 #### CRYSTAL JURADO ([id number]) [facility] (EM) [address] [place] [address] 24765 PT Coag (PPP) [Time] 26.7 s High 9.8-12.8 [facility] Comment on above: Order Comment: The A PTT is no longer used for monitoring Unfractionated Heparin Therapy. For monitoring Heparin Therapy, use the Heparin Assay. Performed By: #### 3 4529-8 #### CRYSTAL JURADO ([id number]) [facility] ([facility]) [address] [place] [address] Blood type and Indirect anti body screen panel (Bld)on 02-26-2024 ABO group Nom (Bld) O [facility] Blood group antibody screen Ql Negative [facility] D Ag Ql (Bld) Positive [facility] Comment on above: 2nd ABO test require d. Order and Collect VERAB [facility] ABO group Nom (Bld) O Normal [facility] Comment on above: Order Comment: Speci men for compatibility testing requires full first and last name, MRN, , date, time of collection, and mechatronics technologist/garbage collector's signature on tube(s) or it will be rejected. Please collect 1 lavender top-KEDTA OR 1 pink top-KEDTA and sign, date and time with the patient's full first and last name, MRN and . Performed By: #### 3 4532-2 #### CRYSTAL JURADO ([id number]) [facility] [address] [place] [address] Blood group antibody screen Ql Negative [facility] Comment on above: Order Comment: Speci men for compatibility testing requires full first and last name, MRN, , date, time of collection, and mechatronics technologist/garbage collector's signature on tube(s) or it will be rejected. Please collect 1 lavender top-KEDTA OR 1 pink top-KEDTA and sign, date and time with the patient's full first and last name, MRN and . Performed By: #### 3 4532-2 #### CRYSTAL [facility] ([id number]) [facility]) [address] [place] [address] D Ag Ql (Bld) Positive [facility] Comment on above: Order Comment: Speci men for compatibility testing requires full first and last name, MRN, , date, time of collection, and mechatronics technologist/garbage collector's signature on tube(s) or it will be rejected. Please collect 1 lavender top-KEDTA OR 1 pink top-KEDTA and sign, date and time with the patient's full first and last name, MRN and . Result Comment: 2nd ABO test required. Order and Collect VERAB Performed By: #### 3 4532-2 #### CRYSTAL JURADO ([id number]) [facility] ([facility]) [address] [place] [address] ECG 12 Leadon 02-26-2024 Atrial paced, ventricular sensed rhythm, right bundle branch block, left anterior fascicular block, HR 75bpm [facility] Work Phone: COMPREHENSIVE METABOLIC PANE Donato 08-06-2023 Albumin [Mass/Vol] 4.2 g/dL Normal 3.2-5.3 [facility] Comment on above: Performed By: #### C RHETT, 56500-6, 3016-3 #### [facility] ([id number]) [address], [address] [place] [address] ALP [Catalytic activity/Vol] 77 U/L Normal 39-130 [facility] Comment on above: Performed By: #### C RHETT, 65089-9, 3016-3 #### [facility] ([id number]) [address], [address] [place] [address] ALT [Catalytic activity/Vol] 11 U/L Normal 0-40 [facility] Comment on above: Performed By: #### C RHETT, 16679-4, 6-3 #### [facility] ([id number]) [address], [address] [place] [address] Anion gap [Moles/Vol] 8 mmol/L Normal 5-15 [facility] Comment on above: Performed By: #### C RHETT, 25542-8, 3016-3 #### [facility] ([id number]) [address], [address] [place] [address] AST [Catalytic activity/Vol] 19 U/L Normal 0-41 [facility] Comment on above: Performed By: #### Gorge DELANEY, 42332-4, 3015-3 #### [facility] ([id number]) [address], [address] [place] [address] Bilirubin [Mass/Vol] 0.5 mg/dL Normal 0.3-1.2 [facility] Comment on above: Performed By: #### Gorge DELANEY, 59117-8, 3015-3 #### [facility] ([id number]) [address], [address] [place] [address] Calcium [Mass/Vol] 9.1 mg/dL Normal 8.5-10.5 [facility] Comment on above: Performed By: #### Gorge DELANEY, 40728-3, 3015- #### [facility] ([id number]) [address], [address] [place] [address] Chloride [Moles/Vol] 106 mmol/L Normal 98-109 [facility] Comment on above: Performed By: #### Gorge DELANEY, 60944-8, 3015- #### [facility] ([id number]) [address], [address] [place] [address] CO2 [Moles/Vol] 26 mmol/L Normal 22-32 [facility] Comment on above: Performed By: #### Gorge DELANEY, 00548-3, 3015- #### [facility] ([id number]) [address], [address] [place] [address] Creatinine [Mass/Vol] 2.12 mg/dL High 0.60-1.30 [facility] Comment on above: Result Comment: METH OD TRACEABLE TO IDMS STANDARD Performed By: #### Gorge DELANEY, 86301-0, 3015-3 #### [facility] ([id number]) [address], [address] [place] [address] GFR/1.73 sq M.predicted among non-blacks MDRD (S/P/Bld) [Vol rate/Area] 29 mL/min/{1.73_m2} Low >59 [facility] Comment on above: Result Comment: Reported eGFR is based on the CKD-EPI 2020 equation that does not use a race coefficient. Performed By: #### C RHETT, 44940-6, 3015-3 #### [facility] ([id number]) [address], [address] [place] [address] Glucose [Mass/Vol] 113 mg/dL High 65-99 [facility] Comment on above: Performed By: #### Gorge DELANEY, 00452-0, 3015-3 #### [facility] ([id number]) [address], [address] [place] [address] Potassium [Moles/Vol] 4.8 mmol/L Normal 3.5-5.0 [facility] Comment on above: Performed By: #### Gorge DELANEY, 81118-7, 3015-3 #### [facility] ([id number]) [address], [address] [place] [address] Protein [Mass/Vol] 7.0 g/dL Normal 6.0-8.0 [facility] Comment on above: Performed By: #### Gorge DELANEY, 16880-4, 3015-3 #### [facility] ([id number]) [address], [address] [place] [address] Sodium [Moles/Vol] 140 mmol/L Normal 134-146 [facility] Comment on above: Performed By: #### Gorge DELANEY, 51802-6, 3015-3 #### [facility] ([id number]) [address], [address] [place] [address] Urea nitrogen [Mass/Vol] 24 mg/dL Normal 5-27 [facility] Comment on above: Performed By: #### Gorge DELANEY, 45437-7, 3015-3 #### [facility] ([id number]) [address], [address] [place] [address] Comprehensive metabolic pane donato 08-06-2023 Albumin [Mass/Vol] 4.2 g/dL 3.2 - 5.3 g/dL [facility] ALP [Catalytic activity/Vol] 77 U/L 39 - 130 U/L [facility] ALT No additional P-5'-P [Catalytic activity/Vol] 11 U/L 0 - 40 U/L [facility] Anion gap [Moles/Vol] 8 mmol/L 5 - 15 mmol/L [facility] AST [Catalytic activity/Vol] 19 U/L 0 - 41 U/L [facility] Bilirubin [Mass/Vol] 0.5 mg/dL 0.3 - 1.2 mg/dL [facility] Calcium [Mass/Vol] 9.1 mg/dL 8.5 - 10. 5 mg/dL [facility] Chloride [Moles/Vol] 106 mmol/L 98 - 109 mmol/L [facility] CO2 [Moles/Vol] 26 mmol/L 22 - 32 mmol/L [facility] Creatinine [Mass/Vol] 2.12 mg/dL High 0.60 - 1.30 mg/dL [facility] Comment on above: METHOD TRACEABLE TO [facility] STANDARD eGFR (CKD-EPI)non-race dependent 29 Low - PINF [facility] Comment on above: Reported eGFR is based on the CKD-EPI 2020 equation that does not use a race coefficient. Glucose [Mass/Vol] 113 mg/dL High 65 - 99 mg/dL [facility] Potassium [Moles/Vol] 4.8 mmol/L 3.5 - 5.0 mmol/L [facility] Protein [Mass/Vol] 7.0 g/dL 6.0 - 8.0 g/dL [facility] Sodium [Moles/Vol] 140 mmol/L 134 - 146 mmol/L [facility] Urea nitrogen [Mass/Vol] 24 mg/dL 5 - 27 mg/dL [facility] HGB A1C (GLYCO-HGB)on 2023 Glucose [Mass/Vol] 140 mg/dL Normal [facility] Comment on above: Performed By: #### C , 90744-2, 3016-3 #### [facility] ([id number]) [address] [place] [address] HbA1c (Bld) [Mass fraction] 6.5 % High 4.4-5.6 [facility] Comment on above: Result Comment: NOTE ADA Guidelines Result HgbA1c Normal : less than 5.7 % Prediabetes : 5.7 % to 6.4 % Diabetes : > 6.4 % Use with caution in patients with abnormal hemoglobin variants as the half-life of red blood cells and in vivo glycation rates are affected. Performed By: #### Gorge , 24211-3, 3016-3 #### [facility] ([id number]) [address] [place] [address], [address] [place] [address] Hemoglobin A1con 08-06-2023 Average glucose Estimated from glycated hemoglobin (Bld) [Mass/Vol] 140 mg/dL [facility] HbA1c (Bld) [Mass fraction] 6.5 % High 4.4 - 5.6 % [facility] Comment on above: NOTE ADA Guidelines Result HgbA1c Normal : less than 5.7 % Prediabetes : 5.7 % to 6.4 % Diabetes : > 6.4 % Use with caution in patients with abnormal hemoglobin variants as the half-life of red blood cells and in vivo glycation rates are affected. Interpretation and review of laboratory results Abnormal [facility] Lipid 1996 panelon 4 Cholesterol [Mass/Vol] 91 mg/dL Low 150 - 200 mg/dL [facility] Cholesterol in HDL [Mass/Vol] 39 mg/dL Low 39 - PINF mg/dL [facility] Comment on above: HDL <40 mg/dL - High Risk HDL > or = 40mg/dL- Desirable HDL >60 mg/dL - Negative Risk Cholesterol in LDL [Mass/Vol] 18 mg/dL NINF - 130 mg/dL [facility] Comment on above: LDL <100 mg/dL - Desirable LDL >160 mg/dL - High Risk Cholesterol in VLDL [Mass/Vol] 34 mg/dL High 0 - 30 mg/dL [facility] Cholesterol.total/C holesterol in HDL [Mass ratio] 2.3 {ratio} 1.0 - 5.0 [facility] Triglyceride [Mass/Vol] 168 mg/dL High 27 - 150 mg/dL [facility] Cholesterol [Mass/Vol] 91 mg/dL Low 150-200 [facility] Comment on above: Performed By: #### Gorge DELANEY, 68766-6, 3016-3 #### [facility] ([id number]) [address], [address] [place] [address] Cholesterol in HDL [Mass/Vol] 39 mg/dL Low >39 [facility] Comment on above: Result Comment: HDL <40 mg/dL - High Risk HDL > or = 40mg/dL- Desirable HDL >60 mg/dL - Negative Risk Performed By: ###[place], [address]-6, 3016-3 #### [facility] ([id number]) [address], [address] [place] [address] Cholesterol in LDL [Mass/Vol] 18 mg/dL Normal <130 [facility] Comment on above: Result Comment: LDL <100 mg/dL - Desirable LDL >160 mg/dL - High Risk Performed By: #### Gorge DELANEY, 96205-2, 3016-3 #### [facility] ([id number]) [address], [address] [place] [address] Cholesterol in VLDL [Mass/Vol] 34 mg/dL High 0-30 [facility] Comment on above: Performed By: #### Gorge DELANEY, 86209-0, 6-3 #### [facility] ([id number]) [address], [address] [place] [address] CHOLESTEROL:HDL 2.3 Normal 1.0-5.0 [facility] Comment on above: Performed By: #### Gorge DELANEY, 06486-1, 6-3 #### [facility] ([id number]) [address], [address] [place] [address] Triglyceride [Mass/Vol] 168 mg/dL High 27-150 [facility] Comment on above: Performed By: #### Gorge DELANEY, 92149-9, 6-3 #### [facility] ([id number]) [address], [address] [place] [address] No Panel Informationon 08-05 Interpretation and review of laboratory results Abnormal [facility] TSHon 08-06-2023 TSH Qn 3.12 m[IU]/L [facility] TSH Qnon 08-06-2023 [facility] TSH 3.12 uIU/mL Normal 0.49-4.67 [facility] Comment on above: Performed By: #### Gogre DELANEY, 62661-2, 3016-3 #### [facility] ([id number]) [address], [address] [place] [address] Protime & INRon 07-18-2023 External Inr 2.02 [facility] External Protime 20.6 [facility] Office Visit (Cardiology)on 01-12-2023 Follow-up visit Diagnoses/Problems [...] a smoker Tobacco Use Screening; Status:Complete; Done: [id number] Ventricular tachycardia IO EKG Electrocardiogram- 12 Lead; Status:Complete; Done: [id number] Patient Instructions Please bring all medicines, vitamins, [...] negative for complaint. Vitals Vital Signs Recorded: [id number] 02:17PM Heart Rate72, Apical Foypdyqn681, RUE, Sitting Bgvlaaaej33, RUE, Sitting Height5 ft 9 in Cckctb450 lb BMI Kkchvaszra40.78 kg/m2 BSA Calculated1.88 Tobacco Useb) No Falls [...] Jan 13 2023 2:45PM EST (Author) Normal Page2Images Tobacco Screening.on 023 Fall risk assessment a) No falls within the last year -[facility] Heart-Quinyx AB 250 DO Work Phone: Tobacco use status [facility] b) No -[facility] Heart-Canon 250 DO Work Phone: PROTIMEon 10-17-2022 INR Coag (PPP) [Relative time] 2.38 {INR} Normal [facility] Comment on above: Performed By: #### P T #### [facility] [address] [place] [address] Dr. Sariah Boyle INR GUIDELINES SEE BELOW Normal [facility] Comment on above: Result Comment: NHUNG RED INR: 2.0 - 3.0 CONDITIONS NOT LISTED BELOW 2.5 - 3.5 FOR PROSTHETIC HEART VALVE REPLACEMENT 2.5 - 3.5 RECURRENT THROMBOSIS Performed By: #### P T #### [facility] [address] [address] [address] Sariah Boyle PT Coag (PPP) [Time] 24.0 s Critically high 9.0-11.6 [facility] Comment on above: Performed By: #### P T #### [facility] [address] [address] [address] Sariah Boyle PROTIMEon 09-15-2022 INR Coag (PPP) [Relative time] 2.18 {INR} Normal [facility] Comment on above: Performed By: #### P T #### [facility] [address] [address] [address] Sariah Boyle INR GUIDELINES SEE BELOW Normal [facility] Comment on above: Result Comment: NHUNG RED INR: 2.0 - 3.0 CONDITIONS NOT LISTED BELOW 2.5 - 3.5 FOR PROSTHETIC HEART VALVE REPLACEMENT 2.5 - 3.5 RECURRENT THROMBOSIS Performed By: #### P T #### [facility] [address] [place] [address] Dr. Sariah Boyle PT Coag (PPP) [Time] 22.1 s Critically high 9.0-11.6 [facility] Comment on above: Performed By: #### P T #### [facility] [address] [place] [address] Dr. Sariah Boyle PROTIMEon 08-15-2022 INR Coag (PPP) [Relative time] 2.44 {INR} Normal [facility] Comment on above: Performed By: #### P T #### [facility] [address] [place] [address] Dr. Sariah Boyle INR GUIDELINES SEE BELOW Normal [facility] Comment on above: Result Comment: NHUNG RED INR: 2.0 - 3.0 CONDITIONS NOT LISTED BELOW 2.5 - 3.5 FOR PROSTHETIC HEART VALVE REPLACEMENT 2.5 - 3.5 RECURRENT THROMBOSIS Performed By: #### P T #### [facility] [address] [place] [address] Dr. Sariah Boyle PT Coag (PPP) [Time] 24.6 s Critically high 9.0-11.6 [facility] Comment on above: Performed By: #### P T #### [facility] [address] [place] [address] Dr. Sariah Boyle PROTIMEon 07-18-2022 INR Coag (PPP) [Relative time] 2.33 {INR} Normal [facility] Comment on above: Performed By: #### P T #### [facility] [address] [place] [address] Dr. Sariah Boyle INR GUIDELINES SEE BELOW Normal [facility] Comment on above: Result Comment: NHUNG RED INR: 2.0 - 3.0 CONDITIONS NOT LISTED BELOW 2.5 - 3.5 FOR PROSTHETIC HEART VALVE REPLACEMENT 2.5 - 3.5 RECURRENT THROMBOSIS Performed By: #### P T #### [facility] [address] [place], [place] [address] Dr. Sariah Boyle PT Coag (PPP) [Time] 23.5 s Critically high 9.0-11.6 [facility] Comment on above: Performed By: #### P T #### [facility] [address] [place], [place] [address] Dr. Sariah Boyle Office Visit (Cardiology)on 07-14-2022 [...] negative for complaint. Vitals Vital Signs Recorded: [id number] 03:41PM Heart Rate80, L Radial Wmfvvrge155, LUE, Sitting Mifjbibvz67, LUE, Sitting Height5 ft 9 in Vfzefr959 lb BMI Lexrhguxie28.92 kg/m2 BSA Calculated1.89 Tobacco Useb) No PHQ-2 [...] Electronically si (more content not included)... Normal Page2Images Tobacco Screening.on 023 Adult depression screening assessment No [facility] Zubka 250 DO Work Phone: Fall risk assessment a) No falls within the last year [facility] NewsBreak-Quinyx AB 250 DO Work Phone: Tobacco use status [facility] b) No [facility] Heart-Shahzad 250 DO Work Phone: PROTIMEon 07-04-2022 INR Coag (PPP) [Relative time] 1.91 {INR} Normal [facility] Comment on above: Performed By: #### P T #### [facility] [address] [address] [address] Sariah Boyle INR GUIDELINES SEE BELOW Normal [facility] Comment on above: Result Comment: NHUNG RED INR: 2.0 - 3.0 CONDITIONS NOT LISTED BELOW 2.5 - 3.5 FOR PROSTHETIC HEART VALVE REPLACEMENT 2.5 - 3.5 RECURRENT THROMBOSIS Performed By: #### P T #### [facility] [address] [address] [address] Sariah Boyle PT Coag (PPP) [Time] 19.5 s Critically high 9.0-11.6 [facility] Comment on above: Performed By: #### P T #### [facility] [address] [place] [address] Dr. Sariah Boyle No Panel Informationon 06-[address] [address] DO Work Phone: PROTIMEon 06-07-2022 INR Coag (PPP) [Relative time] 1.44 {INR} Normal [facility] Comment on above: Performed By: #### P T #### [facility] [address] [place] [address] Dr. Sariah Boyle INR GUIDELINES SEE BELOW Normal [facility] Comment on above: Result Comment: NHUNG RED INR: 2.0 - 3.0 CONDITIONS NOT LISTED BELOW 2.5 - 3.5 FOR PROSTHETIC HEART VALVE REPLACEMENT 2.5 - 3.5 RECURRENT THROMBOSIS Performed By: #### P T #### [facility] [address] [place] [address] Dr. Sariah Boyle PT Coag (PPP) [Time] 15.0 s Critically high 9.0-11.6 [facility] Comment on above: Performed By: #### P T #### [facility] [address] [place] [address] Dr. Sariah Boyle No Panel Informationon 06-[address] [address] DO Work Phone: PROTIMEon 05-08-2022 INR Coag (PPP) [Relative time] 2.06 {INR} Normal [facility] Comment on above: Performed By: #### P T #### [facility] [address] [place] [address] Dr. Sariah Boyle INR GUIDELINES SEE BELOW Normal [facility] Comment on above: Result Comment: NHUNG RED INR: 2.0 - 3.0 CONDITIONS NOT LISTED BELOW 2.5 - 3.5 FOR PROSTHETIC HEART VALVE REPLACEMENT 2.5 - 3.5 RECURRENT THROMBOSIS Performed By: #### P T #### [facility] [address] [place] [address] Dr. Sariah Boyle PT Coag (PPP) [Time] 21.2 s Critically high 9.0-11.6 [facility] Comment on above: Performed By: #### P T #### [facility] [address] [address] [address] Sariah Boyle PROTIMEon 04-07-2022 INR Coag (PPP) [Relative time] 3.37 {INR} Normal [facility] Comment on above: Performed By: #### P T #### [facility] [address] [address] [address] Sariah Boyle INR GUIDELINES SEE BELOW Normal [facility] Comment on above: Result Comment: NHUNG RED INR: 2.0 - 3.0 CONDITIONS NOT LISTED BELOW 2.5 - 3.5 FOR PROSTHETIC HEART VALVE REPLACEMENT 2.5 - 3.5 RECURRENT THROMBOSIS Performed By: #### P T #### [facility] [address] [address] [address] Sariah Boyle PT Coag (PPP) [Time] 33.6 s Critically high 9.0-11.6 [facility] Comment on above: Performed By: #### P T #### [facility] [address] [address] [address] Sariah Boyle Initial Visit (Otolaryngolog y)on [...] melanoma of the scalp History of Present Qnledcv54-ogkl-afg man referred by Dr. Kumari for management [...] Recorded: 03Apr2022 02:27PM Height5 ft 9 in Cemesq329 lb BMI Enrybzdqks84.92 kg/m2 BSA Calculated1.89 Tobacco Useb) No Falls [...] Apr 19 2022 6:13AM EST (Author) Normal Page2Images Tobacco Screening.on 022 Fall risk assessment a) No falls within the last year [facility] Work Phone: Tobacco use status CP b) No [facility] Work Phone: No Panel Informationon 03-23 [facility]-[place] Work Phone: PROTIMEon 03-06-2022 INR Coag (PPP) [Relative time] 2.08 {INR} Normal [facility] Comment on above: Performed By: #### P T #### [facility] [address] [place] [address] Dr. Sariah Boyle INR GUIDELINES SEE BELOW Normal [facility] Comment on above: Result Comment: NHUNG RED INR: 2.0 - 3.0 CONDITIONS NOT LISTED BELOW 2.5 - 3.5 FOR PROSTHETIC HEART VALVE REPLACEMENT 2.5 - 3.5 RECURRENT THROMBOSIS Performed By: #### P T #### [facility] [address] [place] [address] Dr. Sariah Boyle PT Coag (PPP) [Time] 21.4 s Critically high 9.0-11.6 [facility] Comment on above: Performed By: #### P T #### [facility] [address] [place] [address] Dr. Sariah Boyle PROTIMEon 02-03-2022 INR Coag (PPP) [Relative time] 1.83 {INR} Normal [facility] Comment on above: Performed By: #### P T #### [facility] [address] [place] [address] Dr. Sariah Boyle INR GUIDELINES SEE BELOW Normal [facility] Comment on above: Result Comment: NHUNG RED INR: 2.0 - 3.0 CONDITIONS NOT LISTED BELOW 2.5 - 3.5 FOR PROSTHETIC HEART VALVE REPLACEMENT 2.5 - 3.5 RECURRENT THROMBOSIS Performed By: #### P T #### [facility] [address] [place] [address] Dr. Sariah Boyle PT Coag (PPP) [Time] 19.0 s Critically high 9.0-11.6 [facility] Comment on above: Performed By: #### P T #### [facility] [address] [address] [address] Sariah Boyle PROTIMEon 01-02-2022 INR Coag (PPP) [Relative time] 2.05 {INR} Normal [facility] Comment on above: Performed By: #### P T #### [facility] [address] [place] [address] Dr. Sariah Boyle INR GUIDELINES SEE BELOW Normal [facility] Comment on above: Result Comment: NHUNG RED INR: 2.0 - 3.0 CONDITIONS NOT LISTED BELOW 2.5 - 3.5 FOR PROSTHETIC HEART VALVE REPLACEMENT 2.5 - 3.5 RECURRENT THROMBOSIS Performed By: #### P T #### [facility] [address] [place] [address] Dr. Sariah Boyle PT Coag (PPP) [Time] 21.1 s Critically high 9.0-11.6 [facility] Comment on above: Performed By: #### P T #### [facility] [address] [place] [address] Dr. Sariah Boyle Tobacco Screening.on 022 Adult depression screening assessment No [facility] Heart-Shahzad 250 DO Work Phone: Fall risk assessment a) No falls within the last year [facility] Heart-Canon 250 DO Work Phone: Tobacco use status [facility] b) No [facility] Heart-Canon 250 DO Work Phone: PROTIMEon 12-02-2021 INR Coag (PPP) [Relative time] 2.22 {INR} Normal [facility] Comment on above: Performed By: #### P T #### [facility] [address] [place] [address] Dr. Sariah Boyle INR GUIDELINES SEE BELOW Normal [facility] Comment on above: Result Comment: NHUNG RED INR: 2.0 - 3.0 CONDITIONS NOT LISTED BELOW 2.5 - 3.5 FOR PROSTHETIC HEART VALVE REPLACEMENT 2.5 - 3.5 RECURRENT THROMBOSIS Performed By: #### P T #### [facility] [address] [address] [address] Sariah Boyle PT Coag (PPP) [Time] 22.8 s Critically high 9.0-11.6 [facility] Comment on above: Performed By: #### P T #### [facility] [address] [place] [address] Dr. Sariah Boyle PROTIMEon 11-18-2021 INR Coag (PPP) [Relative time] 1.95 {INR} Normal [facility] Comment on above: Performed By: #### P T #### [facility] [address] [place] [address] Dr. Sariah Boyle INR GUIDELINES SEE BELOW Normal [facility] Comment on above: Result Comment: NHUNG RED INR: 2.0 - 3.0 CONDITIONS NOT LISTED BELOW 2.5 - 3.5 FOR PROSTHETIC HEART VALVE REPLACEMENT 2.5 - 3.5 RECURRENT THROMBOSIS Performed By: #### P T #### [facility] [address] [place] [address] Dr. Sariah Boyle PT Coag (PPP) [Time] 20.2 s Critically high 9.0-11.6 [facility] Comment on above: Performed By: #### P T #### [facility] [address] [place] [address] Dr. Sariah Boyle COMPREHENSIVE METABOLIC PANE Donato 08-23-2021 Albumin [Mass/Vol] 4.1 g/dL Normal 3.6-5.1 [facility] Comment on above: Performed By: #### 1 0231, 4140 #### [facility] [address] [address] [place]: Jose Juan Arriola MD Albumin/Globulin [Mass ratio] 1.6 {ratio} Normal 1.0-2.5 [facility] Comment on above: Performed By: #### 1 0231, 7600 #### [facility] [address], [address] [place] [id number] [place]: Jose Juan Arriola MD ALP [Catalytic activity/Vol] 61 U/L Normal 35-144 [facility] Comment on above: Performed By: #### 1 0231, 7600 #### [facility] of [address], [address] [place] [address] [place]: Jose Juan Arriola MD ALT [Catalytic activity/Vol] 9 U/L Normal 9-46 [facility] Comment on above: Performed By: #### 1 0231, 7600 #### [facility] of [address], [address] [place] [address] [place]: Jose Juan Arriola MD AST [Catalytic activity/Vol] 14 U/L Normal 10-35 [facility] Comment on above: Performed By: #### 1 0231, 7600 #### [facility] of [address] [address] [place]: Jose Juan Arriola MD Bilirubin [Mass/Vol] 0.6 mg/dL Normal 0.2-1.2 [facility] Comment on above: Performed By: #### 1 023, 7600 #### [facility] of [address] [address] [place]: Jose Juan Arriola MD Calcium [Mass/Vol] 9.1 mg/dL Normal 8.6-10.3 [facility] Comment on above: Performed By: #### 1 0231, 7600 #### [facility] of [address] [address] [place]: Jose Juan Arriola MD Chloride [Moles/Vol] 109 mmol/L Normal 98-110 [facility] Comment on above: Performed By: #### 1 0231, 7600 #### [facility] of [address], [address] [place] [address] [place]: Jose Juan Arriola MD CO2 [Moles/Vol] 26 mmol/L Normal 20-32 [facility] Comment on above: Performed By: #### 1 0231, 7600 #### [facility] of [address], [address] [place] [address] [place]: Jose Juan Arriola MD Creatinine [Mass/Vol] 2.15 mg/dL High 0.70-1.11 [facility] Comment on above: Result Comment: For patients >49 years of age, the reference limit for Creatinine is approximately 13% higher for people identified as -Mosotho. Performed By: #### 1 0231, 7600 #### [facility] [address], [address] [place] [address] [place]: Jose Juan Arriola MD eGFR NON-AFR. GREENLANDIC 27 mL/min/1.73m2 Low > OR = 60 [facility] Comment on above: Performed By: #### 1 023, 7600 #### [facility] of [address], [address] [place] [address] [place]: Jose Juan Arriola MD GFR/1.73 sq M.predicted among blacks MDRD (S/P/Bld) [Vol rate/Area] 31 mL/min/{1.73_m2} Low > OR = 60 [facility] Comment on above: Performed By: #### 1 023, 7600 #### [facility] of [address], [address] [place] [address] [place]: Jose Juan Arriola MD Globulin (S) [Mass/Vol] 2.5 g/dL Normal 1.9-3.7 [facility] Comment on above: Performed By: #### 1 023, 7600 #### [facility] of [address], [address] [place] [address] [place]: Jose Juan Arriola MD Glucose [Mass/Vol] 93 mg/dL Normal 65-99 [facility] Comment on above: Result Comment: Fasting reference interval Performed By: #### 1 0231, 7600 #### [facility] of [address] [place] [address] [place]: Jose Juan Arriola MD Potassium [Moles/Vol] 4.7 mmol/L Normal 3.5-5.3 [facility] Comment on above: Performed By: #### 1 0231, 7600 #### [facility] [address], [address] [place], [place] [address] [place]: Jose Juan Arriola MD Protein [Mass/Vol] 6.6 g/dL Normal 6.1-8.1 [facility] Comment on above: Performed By: #### 1 0231, 7600 #### [facility] of [address], [address] [place] [address] [place]: Jose Juan Arriola MD Sodium [Moles/Vol] 142 mmol/L Normal 135-146 [facility] Comment on above: Performed By: #### 1 0231, 7600 #### [facility] of [address], [address] [place] [address] [place]: Jose Juan Arriola MD Urea nitrogen [Mass/Vol] 31 mg/dL High 7-25 [facility] Comment on above: Performed By: #### 1 0231, 7600 #### [facility] of [address], [address] [place] [address] [place]: Jose Juan Arriola MD Urea nitrogen/Creatinine [Mass ratio] 14 mg/mg Normal 6-22 [facility] Comment on above: Performed By: #### 1 0231, 7600 #### [facility] of [address], [address] [place] [address] [place]: Jose Juan Arriola MD LIPID PANEL, [facility] 040 Cholesterol [Mass/Vol] 101 mg/dL Normal <200 [facility] Comment on above: Order Comment: FASTI NG:YES FASTING: YES Performed By: #### 1 023, 7600 #### [facility] of [address], [address] [place] [address] [place]: Jose Juan Arriola MD Cholesterol in HDL [Mass/Vol] 40 mg/dL Normal > OR = 40 [facility] Comment on above: Order Comment: FASTI NG:YES FASTING: YES Performed By: #### 1 0231, 7600 #### [facility] of [address], [address] [place] [address] [place]: Jose Juan Arriola MD Cholesterol in LDL [...] LDL-C. Phillip SS et al. MERYL. 2013;310(19): 3512-3951 (http://education.Zurn/faq/HPX029) Performed By: #### 1 0231, 7600 #### [facility] [address], [address] [place] [address] [place]: Jose Juan Arriola MD Cholesterol.total/C holesterol in HDL [Mass ratio] 2.5 {ratio} Normal <5.0 [facility] Comment on above: Order Comment: FASTI NG:YES FASTING: YES Performed By: #### 1 023, 7600 #### [facility] [address], [address] [place] [address] [place]: Jose Juan Arriola MD NON HDL CHOLESTEROL 61 mg/dL (calc) Normal <130 [facility] Comment on above: Order Comment: FASTI NG:YES FASTING: YES Result Comment: For patients with diabetes plus 1 major ASCVD risk factor, treating to a non-HDL-C goal of <100 mg/dL (LDL-C of <70 mg/dL) is considered a therapeutic option. Performed By: #### 1 0231, 7600 #### [facility] [address], [address] [place] [address] [place]: Jose Juan Arriola MD Triglyceride [Mass/Vol] 127 mg/dL Normal <150 [facility] Comment on above: Order Comment: FASTI NG:YES FASTING: YES Performed By: #### 1 0231, 7600 #### [facility] [address], [address] [place] [address] [place]: Jose Juan Arriola MD Tobacco Screening.on 021 Fall risk assessment a) No falls within the last year -[facility] 250 DO Work Phone: Tobacco use status [facility] b) No -[facility] 250 DO Work Phone: B TYPE NATRIURETIC PEPTIDE ( BNP)on 11-03-2020 B TYPE NATRIURETIC PEPTIDE (BNP) Normal [facility] Comment on above: Result Comment: FROZ EN EDTA PLASMA IS REQUIRED TEST NOT PERFORMED No suitable specimen received. Please review the test requirements at [email or web address] Index Performed By: #### 9 05, 48198, 55497, 6399, 718, 899, 622, 86796, 61163 #### [facility] [address] [place] [address] [place]: Jose Juan Arriola MD CBC (INCLUDES DIFF/PLT)on Basophils (Bld) [#/Vol] 0.071 10*3/uL Normal 0-200 [facility] Comment on above: Performed By: #### 9 05, 24542, 15836, 6399, 718, 899, 622, 60200, 10707 #### [facility] [place] [address] [place]: Jose Juan Arriola MD Basophils/100 WBC (Bld) 1.0 % Normal [facility] Comment on above: Performed By: #### 9 05, 99295, 83674, 6399, 718, 899, 622, 66694, 51342 #### [facility] [place] [address] [place]: Jose Juan Arriola MD Eosinophils (Bld) [#/Vol] 0.099 10*3/uL Normal 15-500 [facility] Comment on above: Performed By: #### 9 05, 47165, 04831, 6399, 718, 899, 622, 11221, 54581 #### [facility] [place] [address] [place]: Jose Juan Arriola MD Eosinophils/100 WBC (Bld) 1.4 % Normal [facility] Comment on above: Performed By: #### 9 05, 68672, 74769, 6399, 718, 899, 622, 62285, 45895 #### [facility] of [place] [address] [place]: Jose Juan Arriola MD Erythrocyte distribution width (RBC) [Ratio] 14.4 % Normal 11.0-15.0 [facility] Comment on above: Performed By: #### 9 05, 67174, 27459, 6399, 718, 899, 622, 54691, 76976 #### [facility] of [place] [address] [place]: Jose Juan Arriola MD Hematocrit (Bld) [Volume fraction] 42.7 % Normal 38.5-50.0 [facility] Comment on above: Performed By: #### 9 05, 78570, 28682, 6399, 718, 899, 622, 35610, 61947 #### [facility] of [place] [address] [place]: Jose Juan Arriola MD Hemoglobin (Bld) [Mass/Vol] 13.7 g/dL Normal 13.2-17.1 [facility] Comment on above: Performed By: #### 9 05, 50968, 55164, 6399, 718, 899, 622, 74859, 78076 #### [facility] of [place] [address] [place]: Jose Juan Arriola MD Lymphocytes (Bld) [#/Vol] 1.512 10*3/uL Normal 850-3900 [facility] Comment on above: Performed By: #### 9 05, 50648, 93742, 6399, 718, 899, 622, 75780, 01224 #### [facility] of [place] [address] [place]: Jose Juan Arriola MD Lymphocytes/100 WBC (Bld) 21.3 % Normal [facility] Comment on above: Performed By: #### 9 05, 47718, 76058, 6399, 718, 899, 622, 23246, 69770 #### [facility] of [place] [address] [place]: Jose Juan Arriola MD MCH (RBC) [Entitic mass] 28.5 pg Normal 27.0-33.0 [facility] Comment on above: Performed By: #### 9 05, 04164, 77523, 6399, 718, 899, 622, 21869, 40814 #### [facility] of [place] [address] [place]: Jose Juan Arriola MD MCHC (RBC) [Mass/Vol] 32.1 g/dL Normal 32.0-36.0 [facility] Comment on above: Performed By: #### 9 05, 01034, 66283, 6399, 718, 899, 622, 70648, 25554 #### [facility] of [place] [address] [place]: Jose Juan Arriola MD MCV (RBC) [Entitic vol] 89.0 fL Normal 80.0-100.0 [facility] Comment on above: Performed By: #### 9 05, 53529, 53823, 6399, 718, 899, 622, 61657, 92259 #### [facility] of [place] [address] [place]: Jose Juan Arriola MD Monocytes (Bld) [#/Vol] 0.738 10*3/uL Normal 200-950 [facility] Comment on above: Performed By: #### 9 05, 48737, 65750, 6399, 718, 899, 622, 07906, 59703 #### [facility] of [place] [address] [place]: Jose Juan Arriola MD Monocytes/100 WBC (Bld) 10.4 % Normal [facility] Comment on above: Performed By: #### 9 05, 40578, 46368, 6399, 718, 899, 622, 30131, 63844 #### [facility] [place] [address] Eng[place]er: Jose Juan Arriola MD Neutrophils (Bld) [#/Vol] 4.679 10*3/uL Normal 4683-3055 [facility] Comment on above: Performed By: #### 9 05, 26615, 20737, 6399, 718, 899, 622, 49578, 40819 #### [facility] [place] [address] [place]: Jose Juan Arriola MD Neutrophils/100 WBC (Bld) 65.9 % Normal [facility] Comment on above: Performed By: #### 9 05, 44886, 60997, 6399, 718, 899, 622, 46843, 47326 #### [facility] [place] [address] Eng[place]er: Jose Juan Arriola MD Platelet mean volume (Bld) [Entitic vol] 11.4 fL Normal 7.5-12.5 [facility] Comment on above: Performed By: #### 9 05, 50068, 09682, 6399, 718, 899, 622, 85165, 74046 #### [facility] [place] [address] [place]: Jose Juan Arriola MD Platelets (Bld) [#/Vol] 229 10*3/uL Normal 140-400 [facility] Comment on above: Performed By: #### 9 05, 04852, 84075, 6399, 718, 899, 622, 53974, 42625 #### [facility] [place] [address] [place]: Jose Juan Arriola MD RBC (Bld) [#/Vol] 4.80 10*6/uL Normal 4.20-5.80 [facility] Comment on above: Performed By: #### 9 05, 39310, 69005, 6399, 718, 899, 622, 14417, 55702 #### [facility] [place] [address] [place]: Jose Juan Arriola MD WBC (Bld) [#/Vol] 7.1 10*3/uL Normal 3.8-10.8 [facility] Comment on above: Performed By: #### 9 05, 53356, 70210, 6399, 718, 899, 622, 28027, 87946 #### [facility] [place] [address] [place]: Jose Juan Arriola MD [facility] METABOLIC [facility] 11-03-2020 Albumin [Mass/Vol] 4.1 g/dL Normal 3.6-5.1 [facility] Comment on above: Performed By: #### 9 05, 88705, 86215, 6399, 718, 899, 622, 19689, 71018 #### [facility] [place] [address] [place]: Jose Juan Arriola MD Albumin/Globulin [Mass ratio] 1.7 {ratio} Normal 1.0-2.5 [facility] Comment on above: Performed By: #### 9 05, 15181, 08454, 6399, 718, 899, 622, 00391, 54891 #### [facility] [place] [address] [place]: Jose Juan Arriola MD ALP [Catalytic activity/Vol] 62 U/L Normal 35-144 [facility] Comment on above: Performed By: #### 9 05, 77975, 63876, 6399, 718, 899, 622, 00545, 41281 #### [facility] [place] [address] [place]: Jose Juan Arriola MD ALT [Catalytic activity/Vol] 9 U/L Normal 9-46 [facility] Comment on above: Performed By: #### 9 05, 74944, 18242, 6399, 718, 899, 622, 29865, 59771 #### [facility] [place] [address] [place]: Jose Juan Arriola MD AST [Catalytic activity/Vol] 13 U/L Normal 10-35 [facility] Comment on above: Performed By: #### 9 05, 03755, 51786, 6399, 718, 899, 622, 78427, 90901 #### [facility] [place] [address] [place]: Jose Juan Arriola MD Bilirubin [Mass/Vol] 0.7 mg/dL Normal 0.2-1.2 [facility] Comment on above: Performed By: #### 9 05, 43302, 69895, 6399, 718, 899, 622, 37747, 63119 #### [facility] [place] [address] [place]: Jose Juan Arriola MD Calcium [Mass/Vol] 9.5 mg/dL Normal 8.6-10.3 [facility] Comment on above: Performed By: #### 9 05, 44569, 97027, 6399, 718, 899, 622, 92848, 12684 #### [facility] [place] [address] [place]: Jose Juan Arriola MD Chloride [Moles/Vol] 109 mmol/L Normal 98-110 [facility] Comment on above: Performed By: #### 9 05, 33636, 98049, 6399, 718, 899, 622, 37488, 79756 #### [facility] [place] [address] [place]: Jose Juan Arriola MD CO2 [Moles/Vol] 25 mmol/L Normal 20-32 [facility] Comment on above: Performed By: #### 9 05, 55516, 52669, 6399, 718, 899, 622, 87621, 80938 #### [facility] of [place] [id number] Engrosser: Jose Juan Arriola MD Creatinine [Mass/Vol] 1.99 mg/dL High 0.70-1.11 [facility] Comment on above: Result Comment: For patients >49 years of age, the reference limit for Creatinine is approximately 13% higher for people identified as -Mosotho. Performed By: #### 9 05, 66568, 11641, 6399, 718, 899, 622, 08076, 07680 #### [facility] [place] [address] [place]: Jose Juan Arriola MD eGFR NON-AFR. GREENLANDIC 30 mL/min/1.73m2 Low > OR = 60 [facility] Comment on above: Performed By: #### 9 05, 83943, 62382, 6399, 718, 899, 622, 59331, 79649 #### [facility] [place] [address] [place]: Jose Juan Arriola MD GFR/1.73 sq M.predicted among blacks MDRD (S/P/Bld) [Vol rate/Area] 34 mL/min/{1.73_m2} Low > OR = 60 [facility] Comment on above: Performed By: #### 9 05, 80453, 90294, 6399, 718, 899, 622, 16287, 89660 #### [facility] [place] [address] [place]: Jose Juan Arriola MD Globulin (S) [Mass/Vol] 2.4 g/dL Normal 1.9-3.7 [facility] Comment on above: Performed By: #### 9 05, 95853, 03009, 6399, 718, 899, 622, 02794, 61495 #### [facility] [place] [address] [place]: Jose Juan Arriola MD Glucose [Mass/Vol] 144 mg/dL High 65-99 [facility] Comment on above: Result Comment: Fasting reference interval For someone without known diabetes, a glucose value >125 mg/dL indicates that they may have diabetes and this should be confirmed with a follow-up test. Performed By: #### 9 05, 86309, 95916, 6399, 718, 899, 622, 39071, 65531 #### [facility] [place] [address] [place]: Jose Juan Arriola MD Potassium [Moles/Vol] 4.9 mmol/L Normal 3.5-5.3 [facility] Comment on above: Performed By: #### 9 05, 76774, 10727, 6399, 718, 899, 622, 48698, 18430 #### [facility] [place] [address] [place]: Jose Juan Arriola MD Protein [Mass/Vol] 6.5 g/dL Normal 6.1-8.1 [facility] Comment on above: Performed By: #### 9 05, 36108, 42864, 6399, 718, 899, 622, 62718, 73970 #### [facility] [place] [address] [place]: Jose Juan Arriola MD Sodium [Moles/Vol] 141 mmol/L Normal 135-146 [facility] Comment on above: Performed By: #### 9 05, 16079, 84551, 6399, 718, 899, 622, 08117, 96097 #### [facility] [place] [address] [place]: Jose Juan Arriola MD Urea nitrogen [Mass/Vol] 31 mg/dL High 7-25 [facility] Comment on above: Performed By: #### 9 05, 06732, 62708, 6399, 718, 899, 622, 26328, 92655 #### [facility] [place] [address] [place]: Jose Juan Arriola MD Urea nitrogen/Creatinine [Mass ratio] 16 mg/mg Normal 6-22 [facility] Comment on above: Performed By: #### 9 05, 28782, 29696, 6399, 718, 899, 622, 68748, 19367 #### [facility] [place] [address] [place]: Jose Juan Arriola MD MAGNESIUMon 11-03-2020 Magnesium [Mass/Vol] 2.1 mg/dL Normal 1.5-2.5 [facility] Comment on above: Performed By: #### 9 05, 90870, 75412, 6399, 718, 899, 622, 22692, 05088 #### [facility] [place] [address] [place]: Jose Juan Arriola MD PHOSPHATE ( PHOSPHORUS)on 11-03-2020 Phosphate [Mass/Vol] 2.9 mg/dL Normal 2.1-4.3 [facility] Comment on above: Performed By: #### 9 05, 02157, 20934, 6399, 718, 899, 622, 75486, 31183 #### [facility] [place] [address] [place]: Jose Juan Arriola MD PTH, INTACT WITHOUT [...] Normal High Performed By: #### 9 05, 25168, 95181, 6399, 718, 899, 622, 63719, 17085 #### [facility] [place] [address] [place]: Jose Juan Arriola MD TSHon 11-03-2020 TSH Qn 2.08 m[IU]/L Normal 0.40-4.50 [facility] Comment on above: Performed By: #### 9 05, 64303, 64530, 6399, 718, 899, 622, 80371, 29684 #### [facility] [address], [address] [place] [phone] Engrosser: Jose Juan Arriola MD URIC ACIDon 11-03-2020 Urate [Mass/Vol] 8.5 mg/dL High 4.0-8.0 [facility] Comment on above: Result Comment: Ther apeutic target for gout patients: <6.0 mg/dL Performed By: #### 9 05, 87457, 64693, 6399, 718, 899, 622, 13569, 62036 #### [facility] [address], [address] [place] [phone] Engrosser: Jose Juan Arriola MD VITAMIN D,25-OH,TOTAL,IAon 0 [...] D, (D2,D3), LC/MS/MS is recommended: order code 39366 (patients >2yrs). See Note 1 Note 1 For additional information, please refer to http://education.[employer].RAP Index/faq/JCF611 (This link is being provided for informational/ educational purposes only.) Performed By: #### 1 0231, 7600 #### [facility] [address], [address] [place] [phone] Eng[place]er: Jose Juan Arriola MD [facility] CARDIAC STRESS/REST INJE CTIONon 08-07-2019 [facility] CARDIAC STRESS/REST INJECTION Patient Name: DONOVAN JACOME STUDY: MYOCARDIAL PERFUSION STRESS TEST WITH LEXISCAN Performing facility: [facility], [address] [place] [address], [address], [place] [address] [facility] Provider: Melanie Langston MD, [facility] PCP: Dr. Alden Morin Supervising provider: Doron Jacobsen MD, [facility] INDICATION: Arteriosclerotic cardiovascular disease Pre-operative risk assessment for Gallbladder scheduled at [facility] on TBA. HISTORY: Gender: M; Age: 83 y/o ; Height: 175.26 cm; Weight: 74.5639614 kg. High Cholesterol; CAD; HTN; ICD V. Tach., ICD Denies smoking. COMPARISON: Previous nuclear testing completed at [facility]. ACCESSION NUMBER(S): [id number]; [id number]; [id number] ORDERING CLINICIAN: AIDAN LANGSTON TECHNIQUE: ONE DAY [...] Electronically signed by: DORON JACOBSEN MD [facility] Reminderson 03-14-2019 Reminders - From: Qing Villegas MA To: EU - Clinical; Sent: 03/04/2019 11:29:06 EDT Show up: 03/14/2019 11:29:00 EDT Subject: Ambulatory Reminder Due Date/Time: 03/18/2019 11:29:00 EDT Reminder/Recall FISH/Cytology done 03/04/19 Negative. Normal [facility] Vital Signs Date Time Vital Sign Value Performing Clinician Facility 03-06-2024 10:36-0400 Body height 177.8 cm DWNLD DO [facility] 03-06-2024 10:36-0400 Body mass index (BMI) [Ratio] 21.38 kg/m2 DWNLD DO [facility] 03-06-2024 10:36-0400 Body temperature 97.5 [degF] DWNLD DO [facility] 03-06-2024 10:36-0400 Body weight 67.59 kg DWNLD DO [facility] 03-06-2024 10:36-0400 Diastolic blood pressure 60 mm[Hg] DWNLD DO Work Phone: [employer] 03-06-2024 10:36-0400 Heart rate 70 /min DWNLD DO [facility] 03-06-2024 10:36-0400 Respiratory rate 18 /min DWNLD DO Work Phone: [facility] 03-06-2024 10:36-0400 SaO2% (BldA) [Mass fraction] 97 % Phil Nicoleng DO Work Phone: [facility] 03-06-2024 10:36-0400 Systolic blood pressure 110 mm[Hg] Phil Nicoleng DO Work Phone: [facility] 03-04-2024 14:51-0400 SaO2% (BldA) [Mass fraction] 98 % Nicole Rose MD Work Phone: [facility] 03-04-2024 12:23-0400 Body height 180.3 cm Nicole Rose MD Work Phone: [facility] 03-04-2024 12:23-0400 Body mass index (BMI) [Ratio] 21.43 kg/m2 Nicole Rose MD Work Phone: [facility] 03-04-2024 12:23-0400 Body temperature 97.3 [degF] Nicole Rose MD Work Phone: [facility] 03-04-2024 12:23-0400 Body weight 69.7 kg Nicole Rose MD Work Phone: [facility] 03-04-2024 12:23-0400 Diastolic blood pressure 78 mm[Hg] Nicole Rose MD Work Phone: [facility] 03-04-2024 12:23-0400 Heart rate 75 /min Nicole Rose MD Work Phone: [facility] 03-04-2024 12:23-0400 Respiratory rate 16 /min Nicole Rose MD Work Phone: [facility] 03-04-2024 12:23-0400 Systolic blood pressure 159 mm[Hg] Nicole Rose MD Work Phone: [facility] 02-26-2024 09:26-0400 Body height 180.3 cm Nicole Rose MD Work Phone: [facility] 02-26-2024 09:26-0400 Body mass index (BMI) [Ratio] 21.34 kg/m2 Nicole Rose MD Work Phone: [facility] 02-26-2024 09:26-0400 Body temperature 96.91 [degF] Nicole Rose MD Work Phone: [facility] 02-26-2024 09:26-0400 Body weight 69.4 kg Nicole Rose MD Work Phone: [facility] 02-26-2024 09:26-0400 Diastolic blood pressure 79 mm[Hg] Nicole Rose MD Work Phone: [facility] 02-26-2024 09:26-0400 Heart rate 88 /min Nicole Rose MD Work Phone: [facility] 02-26-2024 09:26-0400 Respiratory rate 16 /min Nicole Rose MD Work Phone: [facility] 02-26-2024 09:26-0400 SaO2% (BldA) [Mass fraction] 98 % Nicole Rose MD Work Phone: [facility] 02-26-2024 09:26-0400 Systolic blood pressure 115 mm[Hg] Nicole Rose MD Work Phone: [facility] 11-05-2023 08:57-0400 Body height 180.3 cm Aidan Langston MD Work Phone: [facility] 11-05-2023 08:57-0400 Body mass index (BMI) [Ratio] 21.9 kg/m2 Aidan Langston MD Work Phone: [facility] 11-05-2023 08:57-0400 Body weight 71.22 kg Aidan Langston MD Work Phone: [facility] 11-05-2023 08:57-0400 Diastolic blood pressure 90 mm[Hg] Aidan Langston MD Work Phone: [facility] 11-05-2023 08:57-0400 Heart rate 82 /min Aidan Langston MD Work Phone: [facility] 11-05-2023 08:57-0400 Systolic blood pressure 130 mm[Hg] Aidan Langston MD Work Phone: [facility] 08-06-2023 10:10-0400 Body height 177.8 cm Phil Furlong DO Work Phone: [employer] 08-06-2023 10:10-0400 Body mass index (BMI) [Ratio] 23.69 kg/m2 Phil Furlong DO Work Phone: [employer] 08-06-2023 10:10-0400 Body temperature 97.81 [degF] Phil Furlong DO Work Phone: [employer] 08-06-2023 10:10-0400 Body weight 74.89 kg Phil Furlong DO Work Phone: [employer] 08-06-2023 10:10-0400 Diastolic blood pressure 60 mm[Hg] Phil Furlong DO Work Phone: [employer] 08-06-2023 10:10-0400 Heart rate 93 /min Phil Furlong DO Work Phone: [employer] 08-06-2023 10:10-0400 Respiratory rate 18 /min Phil Furlong DO Work Phone: [employer] 08-06-2023 10:10-0400 SaO2% (BldA) [Mass fraction] 97 % Phil Furlong DO Work Phone: [employer] 08-06-2023 10:10-0400 Systolic blood pressure 106 mm[Hg] Phil Furlong DO Work Phone: [facility] [employer] [facility] 05-29-2023 16:13-0500 Body height 177.8 cm Phil Furlong DO Work Phone: [facility] [employer] 05-29-2023 16:13-0500 Body mass index (BMI) [Ratio] 24.12 kg/m2 Phil Furlong DO Work Phone: [facility] [employer] 05-29-2023 16:13-0500 Body temperature 97.81 [degF] Phil Furlong DO Work Phone: [facility] [employer] 05-29-2023 16:13-0500 Body weight 76.25 kg Phil Furlong DO Work Phone: [facility] [employer] 05-29-2023 16:13-0500 Diastolic blood pressure 68 mm[Hg] Phil Furlong DO Work Phone: [facility] 05-29-2023 16:13-0500 Heart rate 104 /min Phil Reynagalong DO Work Phone: [facility] [employer] 05-29-2023 16:13-0500 SaO2% (BldA) [Mass fraction] 99 % Phil Ronnelllong DO Work Phone: [facility] [employer] 05-29-2023 16:13-0500 Systolic blood pressure 128 mm[Hg] Phil Reynagalong DO Work Phone: [facility] 01-12-2023 14:17-0400 Body height 175.26 cm Phil Reynagalong Work Phone: [facility] 250 DO Work Phone: 01-12-2023 14:17-0400 Body mass index (BMI) [Ratio] 23.78 kg/m2 Phil G Furlong Work Phone: [facility] 250 DO Work Phone: 01-12-2023 14:17-0400 Body surface area Derived from formula 1.88 m2 Phil G Furlong Work Phone: [facility] DO Work Phone: 01-12-2023 14:17-0400 Body weight 73.03 kg Phil G Furlong Work Phone: [facility] DO Work Phone: 01-12-2023 14:17-0400 Diastolic blood pressure 78 mm[Hg] Phil G Furlong Work Phone: [facility] 250 DO Work Phone: 01-12-2023 14:17-0400 Heart rate 72 /min Phil G Furlong Work Phone: [facility] DO Work Phone: 01-12-2023 14:17-0400 Systolic blood pressure 122 mm[Hg] Phil G Furlong Work Phone: [facility] [employer] 250 DO Work Phone: 07-14-2022 15:41-0500 Body height 175.26 cm Phil G Furlong Work Phone: [facility] [employer] 250 DO Work Phone: 07-14-2022 15:41-0500 Body mass index (BMI) [Ratio] 23.92 kg/m2 Phil G Furlong Work Phone: [facility] 250 DO Work Phone: 07-14-2022 15:41-0500 Body surface area Derived from formula 1.89 m2 Phil G Furlong Work Phone: [facility] 250 DO Work Phone: 07-14-2022 15:41-0500 Body weight 73.48 kg Phil G Furlong Work Phone: [facility] 250 DO Work Phone: 07-14-2022 15:41-0500 Diastolic blood pressure 80 mm[Hg] Phil Reynagalong Work Phone: [facility] DO Work Phone: 07-14-2022 15:41-0500 Heart rate 80 /min Phil Reynagalong Work Phone: [facility] 250 DO Work Phone: 07-14-2022 15:41-0500 Systolic blood pressure 130 mm[Hg] Phil Reynagalong Work Phone: [facility] 250 DO Work Phone: 06-15-2022 12:40-0500 Diastolic blood pressure 78 mm[Hg] Florentino Kumari [facility] 06-15-2022 12:40-0500 Systolic blood pressure 167 mm[Hg] Florentino Kumari [facility] 06-06-2022 08:07-0500 Diastolic blood pressure 85 mm[Hg] Florentino Kumari [facility] 06-06-2022 08:07-0500 Systolic blood pressure 150 mm[Hg] Florentino Kumari [facility] 04-03-2022 14:27-0500 Body height 175.26 cm Phil Reynagalong Work Phone: [facility]Lxlbcpuvisvrmz[facility]Rv [place] Work Phone: 04-03-2022 14:27-0500 Body mass index (BMI) [Ratio] 23.92 kg/m2 Phil Soliz Furlong Work Phone: II-Aagwtzqrdpfbge-Sj [place] Work Phone: 04-03-2022 14:27-0500 Body surface area Derived from formula 1.89 m2 Phil Reynagalong Work Phone: HC-Oisrsofmldeomt-Tf [place] Work Phone: 04-03-2022 14:27-0500 Body weight 73.48 kg Phil Reynagalong Work Phone: SN-Dfrnhvxocatrqj-Ls [place] Work Phone: 03-23-2022 09:29-0400 Diastolic blood pressure 89 mm[Hg] Karlie Craig [facility] 03-23-2022 09:29-0400 Systolic blood pressure 160 mm[Hg] Karlie Craig [facility] 03-23-2022 08:29-0400 Diastolic blood pressure 89 mm[Hg] Florentino Kumari [facility] 03-23-2022 08:29-0400 Systolic blood pressure 160 mm[Hg] Florentino Kumari [facility] 12-13-2021 08:48-0400 Body height 175.26 cm Phil Reynagalong Work Phone: [facility] [employer] 250 DO Work Phone: 12-13-2021 08:48-0400 Body mass index (BMI) [Ratio] 23.63 kg/m2 Phil Reynagalong Work Phone: [facility] [employer] 250 DO Work Phone: 12-13-2021 08:48-0400 Body surface area Derived from formula 1.88 m2 Phil Soliz [employer] Work Phone: [facility] [employer] 250 DO Work Phone: 12-13-2021 08:48-0400 Body weight 72.58 kg Phil Reynagalong Work Phone: [facility] [employer] 250 DO Work Phone: 12-13-2021 08:48-0400 Diastolic blood pressure 80 mm[Hg] Phil Soliz Furlong Work Phone: [facility] 250 DO Work Phone: 12-13-2021 08:48-0400 Heart rate 80 /min Phil G Furlong Work Phone: [facility] 250 DO Work Phone: 12-13-2021 08:48-0400 Systolic blood pressure 128 mm[Hg] Phil G Furlong Work Phone: [facility] [employer] 250 DO Work Phone: 05-02-2021 08:27-0500 Body height 175.26 cm Phil G Furlong Work Phone: [facility] [employer] 250 DO Work Phone: 05-02-2021 08:27-0500 Body mass index (BMI) [Ratio] 24.37 kg/m2 Phil G Furlong Work Phone: [facility] [employer] 250 DO Work Phone: 05-02-2021 08:27-0500 Body surface area Derived from formula 1.9 m2 Phil G Furlong Work Phone: [facility] [employer] 250 DO Work Phone: 05-02-2021 08:27-0500 Body weight 74.84 kg Phil G Furlong Work Phone: [facility] [employer] 250 DO Work Phone: 05-02-2021 08:27-0500 Diastolic blood pressure 76 mm[Hg] Phil G Furlong Work Phone: [facility] [employer] 250 DO Work Phone: 05-02-2021 08:27-0500 Heart rate 81 /min Phil Morin Work Phone: [facility] 250 DO Work Phone: 05-02-2021 08:27-0500 Systolic blood pressure 137 mm[Hg] Phil Morin Work Phone: [facility] 250 DO Work Phone: 1934 23:00-0500 >na< Karlie Craig Dept. of Dermato logy Encounters Encounter Date Encounter Type Care Provider Facility Start: 03-11-2024 End: 03-11-2024 ambulatory [facility] Start: 03-10-2024 End: 03-10-2024 Orders Only Phil Morin DO Work Phone: [facility] Comment on above: Vitamin D deficiency (Primary Dx) Start: 03-06-2024 End: 03-06-2024 ambulatory [facility] Start: 03-06-2024 End: 03-06-2024 Office outpatient visit 25 minutes Phil Morin DO Work Phone: [facility] Comment on above: Hypertension 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 ([facility]-HCC) (Primary Dx); 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); Cardiomyopathy (CMS-HCC); Stage 4 chronic kidney disease (CMS-HCC); Type 2 diabetes mellitus without complication, without long-term current use of insulin ([facility]-HCC) Start: 03-06-2024 End: 03-06-2024 ambulatory [facility] Start: 03-04-2024 End: 03-04-2024 Subsequent hospital visit by physician Nicole Rose MD Work Phone: [facility] Comment on above: 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 Start: 02-05-2024 End: 02-05-2024 ambulatory DO Philgirish Reynagalong Work Phone: [facility] Work Phone: Start: 12-27-2023 End: 12-27-2023 Patient encounter procedure DO Phil Ronnelllong Work Phone: [facility] Start: 12-27-2023 End: 12-27-2023 ambulatory DO Phil Furlong Work Phone: [facility] Work Phone: Start: 11-05-2023 End: 11-05-2023 Office outpatient visit 25 minutes Aidan Langston MD Work Phone: [facility] Comment on above: Arteriosclerotic car diovascular disease (ASCVD) (Primary Dx); Essential hypertension; Mixed hyperlipidemia; Ventricular tachycardia (Multi); ICD (implantable cardioverter-defibrillator) in place; Dilated cardiomyopathy (Multi); Ischemic cardiomyopathy Start: 11-05-2023 End: 11-05-2023 ambulatory AIDAN LANGSTON [facility] Start: 09-27-2023 End: 09-27-2023 Patient encounter procedure DO Phil Furlong Work Phone: [facility] Start: 09-27-2023 End: 09-27-2023 ambulatory DO Phil Morin Work Phone: [facility] Work Phone: Start: 08-23-2023 Orders Only Phil pool DO Work Phone: [facility] Start: 08-09-2023 Orders Only Phil pool DO Work Phone: [facility] Comment on above: Type 2 diabetes gamaliel itus without complication, without long- term current use of insulin ([facility] [facility]) (Primary Dx); Hypertensive 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 ([facility]) Start: 08-06-2023 End: 08-06-2023 ambulatory [facility] Start: 08-06-2023 End: 08-06-2023 Office outpatient [...] (CMS-HCC); Malignant melanoma of scalp or neck ([facility]-HCC); Longstanding persistent atrial fibrillation ([facility]-HCC); Paroxysmal atrial fibrillation ([facility]-HCC); Microalbuminuric diabetic nephropathy ([facility]-HCC) Start: 08-06-2023 End: 08-06-2023 ambulatory [facility] Start: 07-18-2023 Orders Only Phil pool DO Work Phone: [facility] - [facility] Comment on above: Longstanding persist ent atrial fibrillation ([facility]-HCC) (Primary Dx) Start: 06-28-2023 End: 06-28-2023 Patient encounter procedure DO Phil Morin Work Phone: [facility] Start: 06-28-2023 End: 06-28-2023 ambulatory DO Phil Furlong Work Phone: [facility] Work Phone: Start: 05-29-2023 End: 05-29-2023 Office outpatient visit 25 minutes Phil G Furlong DO Work Phone: [facility] Internal Medicine - Family Medicine Comment on above: Paroxysmal atrial fi brillation ([facility]-HCC) (Primary Dx); Hypertensive 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 ([facility]); Essential hypertension; Hypothyroidism, unspecified type; Type 2 diabetes mellitus without complication, without long-term current use of insulin ([facility]); Arteriosclerotic vascular disease Start: 05-29-2023 End: 05-29-2023 ambulatory PHIL MORIN [facility] Start: 03-20-2023 End: 03-20-2023 ambulatory DO Phil Furlong Work Phone: [facility] Work Phone: Start: 03-20-2023 End: 03-20-2023 Patient encounter procedure DO Phil Furlong Work Phone: [facility] Start: 01-12-2023 Office outpatient vi sit 25 minutes Phil G Furlong Work Phone: [facility] 250 DO Work Phone: Start: 01-12-2023 Patient encounter procedure De nnis G Furlong Work Phone: [facility] DO Work Phone: Start: 10-17-2022 End: 10-18-[address] JARON DAVALOS Facility:H1 Start: 09-15-2022 End: 09-16-[address] JARON DAVALOS Facility:H1 Start: 08-28-2022 End: 08-28-2022 ambulatory DO Phil Furlong Work Phone: [facility] Work Phone: Start: 08-28-2022 End: 08-28-2022 Patient encounter procedure DO Phil Ronnelldestinyyrn Work Phone: [facility] Start: 08-15-2022 End: 08-16-[address] JARON DAVALOS Facility:H1 Start: 07-18-2022 End: 07-19-[address] JARON DAVALOS Facility:H1 Start: 07-14-2022 Office outpatient vi sit 25 minutes Phil Morin Work Phone: [facility] DO Work Phone: Start: 07-04-2022 End: 07-05-[address] JARON DAVALOS Facility:H1 Start: 07-03-2022 Karlie Craig Dept. of D ermatology Start: 06-16-2022 Jaimie Estevez Dept. of Dermatology Start: 06-16-2022 Telephone encounter Phil Soliz Mckayla oliverio Work Phone: [facility] 250 DO Work Phone: Start: 06-15-2022 Florentino Kumari Dept. of Dermatology Start: 06-09-2022 Rx Renewal Phil Soliz Ronnelldestiny ng Work Phone: [facility] DO Work Phone: Start: 06-07-2022 End: 06-08-[address] PHIL MORIN Facility:H1 Start: 06-07-2022 Florentino Kumari Dept. of Dermatology Start: 05-17-2022 End: 05-17-2022 ambulatory DO Phil Reynagalong Work Phone: [facility] Work Phone: Start: 05-17-2022 End: 05-17-2022 Patient encounter procedure DO Phil Morin Work Phone: [facility] Start: 05-08-2022 End: 05-09-[address] PHIL MORIN Facility:H1 Start: 05-01-2022 Rx Renewal Phil Soliz Ronnelldestiny ng Work Phone: [facility] DO Work Phone: Start: 04-07-2022 End: 04-08-[address] PHIL MORIN Facility:H1 Start: 04-04-2022 Karlie Craig Dept. of D ermatology Start: 04-03-2022 Office outpatient ne w 45 minutes Phil Soliz Ronnellbret Work Phone: [facility] Work Phone: Start: 04-03-2022 Patient encounter procedure De mindi Martínez Reynagadestinyyrn Work Phone: [facility] Work Phone: Start: 03-23-2022 Florentino Kumari Dept. of Dermatology Start: 03-06-2022 End: 03-07-[address] PHIL MORIN Facility:H1 Start: 02-28-2022 Karlie Craig Dept. of D ermatology Start: 02-15-2022 End: 02-15-2022 ambulatory DO Phil Morin Work Phone: [facility] Work Phone: Start: 02-15-2022 End: 02-15-2022 Patient encounter procedure DO Phil Morin Work Phone: [facility] Start: 02-03-2022 End: 02-04-[address] PHIL MORIN Facility:H1 Start: 01-02-2022 End: 01-03-[address] PHIL MORIN Facility:H1 Start: 12-13-2021 Office outpatient vi sit 25 minutes Phil Morin Work Phone: [facility] DO Work Phone: Start: 12-02-2021 End: 12-16-[address] PHIL MORIN Facility:H1 Start: 11-18-2021 End: 11-19-[address] PHIL Soliz RONNELLBRET Facility:H1 Start: 05-02-2021 Office outpatient vi sit 25 minutes Phil Morin Work Phone: [facility] DO Work Phone: Procedures Date Procedure Procedure Detail Performing Clinician Start: 03-04-2024 Ecg routine ecg w/le ast 12 lds trcg only w/o i&r Aleena Dinero ENZYME CHEMIST-SAND OPERATOR Work Phone: Start: 03-04-2024 Basic metabolic pane l calcium total Aleena Carmen Dinero ENZYME CHEMIST-SAND OPERATOR Work Phone: Start: 02-26-2024 Ecg routine [...] 06-06-2022 Excision malignant: Scalp/Neck/Hands/Feet/Genit adam - 4.0cm [id number] Florentino Kumari Start: 06-06-2022 Excision malignant: Scalp/Neck/Hands/Feet/Genit adam - 4.0cm [id number] Florentino Kumari Start: 03-23-2022 End: 03-23-2022 Exc [...] Td Vaccines (2 - Td or Tdap) [facility] Start: 08-11-2027 DTaP/Tdap/Td Vaccines (2 - Td or Tdap) DTaP/Tdap/Td Vaccines (2 - Td or Tdap) [facility] Start: 03-06-2025 Adult BMI Screening Adult BMI Screening [facility] Start: 03-06-2025 Tobacco Screening Tobacco Screening [facility] Start: 03-04-2025 Creatinine measurement Creatinine Level [facility] Start: 03-04-2025 Potassium measurement Potassium Level [facility] Start: 09-04-2024 End: 09-04-2024 Patient encounter procedure 09/04/2024 10:00 AM EDT [facility] [address] [place] [id number] RonnelldestinyPhil poolDO [address], [facility] [place] [address] [facility] Start: 09-02-2024 End: 03-04-2025 Cardiac Device Check - In Clinic Cardiac Device Check - In Clinic Implantable Cardiac Device Routine 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 Expected: 09/02/2024 (Approximate), Expires: 03/04/2025 [facility] Service Area Work Phone: Comment on above: Expected: 09/02/2024 (Approximate), Expi res: 03/04/2025 Start: 09-02-2024 End: 09-02-2024 Patient encounter procedure [facility] Start: 08-05-2024 Administration of varicella zoster vaccine Zoster (Shingles) Vaccine (1 of 2) [facility] Comment on above: Postponed from 09/25/2015 (Patient Refus ed) Start: 08-05-2024 Adult BMI Screening Adult BMI Screening [facility] Start: 08-05-2024 Depression Screening Depression Screening [facility] Start: 08-05-2024 Tobacco Screening Tobacco Screening [facility] Start: 08-04-2024 End: 08-04-2024 Patient encounter procedure 08/04/2024 9:30 AM EDT Office Visit [facility] [address] [place] [address] [address] [place] [address] Adri Mckenzie MD [address] [facility] [address] [place] [address] [facility] Start: 05-29-2024 Adult BMI Screening Adult BMI Screening [facility] Start: 05-29-2024 Depression Screening Depression Screening [facility] Start: 05-29-2024 Fall Risk Screening Fall Risk Screening [facility] Start: 05-29-2024 Tobacco Screening Tobacco Screening [facility] Start: 03-11-2024 End: 03-11-2024 Clinical Support 03/11/2024 9:30 AM EDT Clinical Support [facility] [address] [place] [address] [address] [place] [address] [facility] Start: 03-04-2024 End: 03-04-2024 Admission to same day surgery center 03/04/2024 3:30 PM EDT - 03/04/2024 4:30 PM EDT Surgery [facility] [address] [place] [facility] [place] [address] Nicole Rose MD [address] [place] [facility] [address] ICD DC Generator Change [51165 (CPT )] [facility] Comment on above: ICD DC Generator Change [60419 (CPT )] Start: 03-04-2024 Subsequent hospital visit by physician 03/04/2024 3:30 PM EDT Hospital Encounter [facility] [address] [place] [facility] [place] [address] Nicole Rose MD [address] [place] [facility] [address] 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; Ventricular tachycardia (Multi) [facility] Comment on above: ICD (implantable cardioverter-defibrilla tor) in place; Ventricular tachycardia (Multi) Start: 02-06-2024 End: 02-06-2024 Patient encounter procedure 02/06/2024 9:00 AM EDT Office Visit [facility] [address] [place] [address] Phil Morin DO [address] [place] [address] [facility] Start: 01-20-2024 COVID-19 Vaccine ( season) COVID-19 Vaccine ( season) [facility] Start: 01-20-2024 Influenza vaccination [facility] Start: 10-16-2023 FUV, Provider: Aidan Langston, Status: Pen, Time: 9:00 AM FUV, Provider: Aidan Langston, Status: Pen, Time: 9:00 AM [facility] 250 DO Work Phone: Start: 08-06-2023 End: 08-06-2023 Patient encounter procedure 08/06/2023 10:10 AM EDT Office Visit [facility] [address] [place] [phone] Phil Morin, DO [address], [place] [address] [facility] Internal Medicine - [facility] Start: 07-30-2023 End: 07-30-2023 Patient encounter procedure 07/30/2023 10:20 AM EDT Office Visit [facility] Internal [facility] [address] [place] [address] Phil Morin, DO [address], [place] [address] [facility] Internal [facility] Start: 01-19-2023 COVID-19 Vaccine ( season) COVID-19 Vaccine () [facility] Start: 01-12-2023 FUV, Provider: Aidan Langston, Status: Pen, Time: 2:10 PM FUV, Provider: Aidan Langston, Status: Pen, Time: 2:10 PM [facility] 250 DO Work Phone: Start: 07-14-2022 FUV, Provider: Aidan Langston, Status: Pen, Time: 3:10 PM FUV, Provider: Aidan Langston, Status: Pen, Time: 3:10 PM [facility] Work Phone: Start: 06-27-2022 FUV, Provider: Doron Jacobsen, Status: Pen, Time: 9:10 AM FUV, Provider: Doron Jacobsen, Status: Pen, Time: 9:10 AM [facility] 250 DO Work Phone: Start: 12-13-2021 FUV, Provider: Aidan Langston, Status: Pen, Time: 8:50 AM FUV, Provider: Aidan Langston, Status: Pen, Time: 8:50 AM [facility] Work Phone: Start: 06-03-2016 Creatinine measurement Creatinine Level [facility] Start: 06-03-2016 Potassium measurement Potassium Level [facility] Start: 09-25-2015 Administration of varicella zoster vaccine Zoster (Shingles) Vaccine (1 of 2) [facility] Start: 09-25-2015 Zoster Vaccines (2 of 3) Zoster Vaccines (2 of 3) [facility] Start: 1994 RSV patients and/or patients aged 60+ years (1 - 1-dose 60+ series) RSV patients and/or patients aged 60+ years (1 - 1-dose 60+ series) [facility] Start: 1952 Diabetes mellitus screening Diabetes Screening [facility] Start: 02-13-1935 Examination of skin Derm Melanoma Skin Check [facility] Start: 1934 Echocardiography Echocardiogram [facility] Start: 1934 Lipid panel Lipid Panel [facility] Start: 1934 Medicare Annual Wellness Visit [facility] Start: 1934 Screening for osteoporosis Bone Density Scan [facility] End: 05-29-2024 Comprehensive metabolic 2000 panel - Serum or Plasma Comprehensive metabolic panel Lab Routine Hypertensive 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 ([facility]-HCC) 1 Occurrences starting 05/29/2023 until 05/29/2024 [facility] Comment on above: 1 Occurrences starting 05/29/2023 until 05/29/2024 ECG 12 lead STAT ECG 12 lead STA T ECG STAT 03/04/2024 12:20 PM EDT [facility] Service Area Work Phone: End: 02-26-2024 Electrophysiology study [facility] Service Are a Work Phone: Comment on above: Once for 1 Occurrences starting 02/26/20 24 until 02/26/2024 End: 05-29-2024 Hemoglobin A1c/Hemoglobin.total in Blood Hemoglobin A1c Lab Routine Type 2 diabetes mellitus without complication, without long-term current use of insulin ([facility]-HCC) 1 Occurrences starting 05/29/2023 until 05/29/2024 [facility] Comment on above: 1 Occurrences starting 05/29/2023 until 05/29/2024 End: 03-06-2025 Hemoglobin A1c/Hemoglobin.total in Blood Hemoglobin A1c Lab Routine Type 2 diabetes mellitus without complication, without long-term current use of insulin ([facility] 1 Occurrences starting 03/06/2024 until 03/06/2025 [facility] Comment on above: 1 Occurrences starting 03/06/2024 until 03/06/2025 End: 05-29-2024 Lipid panel Lipid panel Lab Routine Arteriosclerotic vascular disease 1 Occurrences starting 05/29/2023 until 05/29/2024 [facility] Comment on above: 1 Occurrences starting 05/29/2023 until 05/29/2024 End: 03-06-2025 Magnesium [Mass/volume] in Serum or Plasma Magnesium Lab Routine Hypertensive 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 ([facility] 1 Occurrences starting 03/06/2024 until 03/06/2025 [facility] Comment on above: 1 Occurrences starting 03/06/2024 until 03/06/2025 End: 03-06-2025 Parathyroid Hormone, intact Parathyroid Hormone, intact Lab Routine Hypertensive 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 ([facility] 1 Occurrences starting 03/06/2024 until 03/06/2025 [facility] Comment on above: 1 Occurrences starting 03/06/2024 until 03/06/2025 End: 03-06-2025 Phosphate [Mass/volume] in Serum or Plasma Phosphorus Lab Routine Hypertensive 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 ([facility] 1 Occurrences starting 03/06/2024 until 03/06/2025 [facility] Comment on above: 1 Occurrences starting 03/06/2024 until 03/06/2025 End: 05-29-2024 Protime & INR Protime & INR Lab Routine Paroxysmal atrial fibrillation ([facility]) 1 Occurrences starting 05/29/2023 until 05/29/2024 [facility] Work Phone: Comment on above: 1 Occurrences starting 05/29/2023 until 05/29/2024 End: 05-29-2024 Thyrotropin [Units/volume] in Serum or Plasma TSH Lab Routine Hypothyroidism, unspecified type 1 Occurrences starting 05/29/2023 until 05/29/2024 [facility] Comment on above: 1 Occurrences starting 05/29/2023 until 05/29/2024 End: 03-06-2025 Urate [Mass/volume] in Serum or Plasma Uric acid Lab Routine Hypertensive 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 ([facility]) 1 Occurrences starting 03/06/2024 until 03/06/2025 [facility] Work Phone: Comment on above: 1 Occurrences starting 03/06/2024 until 03/06/2025 End: 03-06-2025 Vitamin D 25 hydroxy Vitamin D 25 hydroxy Lab Routine Hypertensive 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 ([facility]) Stage 4 chronic kidney disease ([facility]) 1 Occurrences starting 03/06/2024 until 03/06/2025 [facility] Comment on above: 1 Occurrences starting 03/06/2024 until 03/06/2025 Immunizations Immunization Date Immunization Notes Care Provider Raquel chow 02-27-2024 Influenza, High-dose , Quadrivalent Phil Furlong DO Work Phone: [facility] 03-30-2023 Influenza, High-dose , Quadrivalent Phil Furlong DO Work Phone: [facility] 03-30-2023 influenza virus vacc ine, unspecified formulation Phil RonnellGening DO Work Phone: [facility] 02-16-2022 Fluzone High-Dose Quadrivalent 0.7 ML Intramuscular Suspension Prefilled Syringe Philgirish Morin Work Phone: [facility] 250 DO Work Phone: 01-28-2021 Fluad Quadrivalent 0 .5 ML Intramuscular Prefilled Syringe Phil G [employer] Work Phone: [facility] 250 DO Work Phone: 07-14-2020 Pfizer-BioNTech COVI D-19 Vacc 30 MCG/0.3ML Intramuscular Suspension Phil G [employer] Work Phone: [facility] DO Work Phone: 07-01-2020 PfizerEnsemble Discovery COVI D-19 Vacc 30 MCG/0.3ML Intramuscular Suspension Phil Morin Work Phone: [facility] 06-16-2020 COVID-19, mRNA, LNP- S, PF, 30mcg/0.3mL Dose Phil Morin DO Work Phone: [facility] 06-11-2020 PfizerOrderDynamics COVI D-19 Vacc 30 MCG/0.3ML Intramuscular Suspension Phil Morin Work Phone: [facility] [employer] DO Work Phone: 04-05-2020 pneumococcal polysaccharide vaccine, 23 valent Phil Reynagayrn Work Phone: [place] [address] DO Work Phone: 02-23-2020 Fluad Quadrivalent 0 .5 ML Intramuscular Prefilled Syringe Phil Morin Work Phone: [place] [address] DO Work Phone: 02-19-2020 influenza, seasonal, injectable Phil Morin Work Phone: [place] [address] DO Work Phone: 07-20-2019 pneumococcal conjuga te vaccine, 13 valent Phil Reynagayrn Work Phone: [place] [address] DO Work Phone: 03-12-2019 pneumococcal conjuga te vaccine, 13 valent Phil Reynagang Work Phone: [place] [address] DO Work Phone: 03-12-2019 Seasonal trivalent influenza vaccine, adjuvanted, preservative free [facility] Work Phone: [place] [address] DO Work Phone: 02-18-2019 influenza virus vacc ine, unspecified formulation Phil Reynagalong Work Phone: [place] [address] DO Work Phone: 03-04-2018 influenza virus vacc ine, unspecified formulation Phil Reynagalong Work Phone: [place] [address] DO Work Phone: 08-10-2017 tetanus toxoid, redu edwin diphtheria toxoid, and acellular pertussis vaccine, adsorbed Phil Reynagang Work Phone: [place] [address] DO Work Phone: 03-21-2017 influenza virus vacc ine, unspecified formulation Phil Reynagalong Work Phone: [place] [address] DO Work Phone: 03-13-2017 influenza, seasonal, injectable Phil Reynagalong Work Phone: [place] [address] DO Work Phone: 02-21-2016 influenza, seasonal, injectable, preservative free Phil Reynagalong Work Phone: [place] [address] DO Work Phone: 02-19-2016 influenza virus vacc ine, unspecified formulation Phil Reynagalong Work Phone: [place] [address] DO Work Phone: 07-31-2015 zoster vaccine, live Phil Reynagalong Work Phone: [facility] 250 DO Work Phone: 07-31-2015 zoster vaccine, unspecified formulation Phil Reynagalong DO Work Phone: [facility] 02-18-2015 influenza virus vacc ine, unspecified formulation Phil Reynagalong Work Phone: [place] [address] DO Work Phone: 02-17-2015 influenza, seasonal, injectable, preservative free Phil Reynagalong DO Work Phone: [facility] 05-11-2014 pneumococcal polysaccharide vaccine, 23 valent Phil G Furlong Work Phone: [place] [address] DO Work Phone: 02-18-2014 influenza virus vacc ine, unspecified formulation Phil Reynagalong Work Phone: [place] [address] DO Work Phone: 04-03-2013 pneumococcal conjuga te vaccine, 13 valent Phil G Furlong Work Phone: [place] [address] DO Work Phone: 02-18-2013 influenza virus vacc ine, unspecified formulation Phil Reynagang Work Phone: [place] [address] DO Work Phone: 02-18-2013 pneumococcal polysaccharide vaccine, 23 valent Phil Reynagalong Work Phone: [place] [address] DO Work Phone: 12-20-2011 influenza virus vacc ine, unspecified formulation Phil Reynagalong Work Phone: [place] [address] DO Work Phone: 05-21-2010 influenza virus vacc ine, unspecified formulation Phil G Furlong Work Phone: [facility] 250 DO Work Phone: 05-21-2009 influenza virus vacc ine, unspecified formulation Phil G Furlong Work Phone: [facility] 250 DO Work Phone: 05-21-2008 influenza virus vacc ine, unspecified formulation Phil G Furlong Work Phone: [facility] 250 DO Work Phone: 05-21-2007 pneumococcal polysaccharide vaccine, 23 valent Phil Soliz Furlong Work Phone: [facility] 250 DO Work Phone: 03-28-2002 pneumococcal polysaccharide vaccine, 23 valent Phil Soliz Furlong Work Phone: [facility] 250 DO Work Phone: 03-21-2002 pneumococcal polysaccharide vaccine, 23 valent Phil Furlong DO Work Phone: [facility] 1934 pneumococcal conjuga te vaccine, 7 valent Karlie Craig Dept. of Dermatology Payers Date Payer Category Payer Self-pay [id number] 2022 Medicare [id number] 1959 Private Health Insurance [id number] 1959 Private Health Insurance [id number] 1934 Unknown [id number] 2.16.840.1.261607.3.579.2.593 1934 Unknown [id number] 2.16.840.1.015850.3.579.2.593 1934 Unknown [id number] 2.16.840.1.768022.3.579.2.593 1934 Unknown [id number] 2.16.840.1.940864.3.579.2.593 1934 Unknown [id number] 2.16.840.1.414597.3.579.2.593 1934 Unknown [id number] 2.16.840.1.314870.3.579.2.593 1934 Unknown [id number] 2.16.840.1.997597.3.579.2.593 1934 Unknown [id number] 2.16.840.1.911740.3.579.2.593 1934 Unknown [id number] 2.16.840.1.783523.3.579.2.593 1934 Unknown [id number] 2.16.840.1.602849.3.579.2.593 1934 Unknown [id number] 2.16.840.1.851100.3.579.2.593 1934 Unknown [id number] 2.16.840.1.998844.3.579.2.593 1934 Unknown [id number] 2.16.840.1.637133.3.579.2.593 1934 Unknown [id number] 2.16.840.1.292024.3.579.2.1246 1934 Unknown [id number] 2.16.840.1.318250.3.579.2.1246 1934 Unknown [id number] 2.16.840.1.754760.3.579.2.1286 1934 Unknown [id number] 2.16.840.1.708989.3.579.2.1286 1934 Unknown [id number] 2.16.840.1.552075.3.579.2.1286 1934 Unknown [id number] 2.16.840.1.259556.3.579.2.1286 1934 Unknown [id number] 2.16.840.1.408617.3.579.2.1286 1934 Unknown [id number] 2.16.840.1.500231.3.579.2.1244 1934 Unknown [id number] 2.16.840.1.299720.3.579.2.1244 Medicare Medicare [id number] Medicare Medicare [id number] Unknown Unknown Dean BC/BS [id number] Unknown [id number] 2.16.840.1.709378.3.579.2.531 Unknown [id number] 2.16.840.1.440447.3.579.2.531 Unknown [id number] 2.16.840.1.323883.3.579.2.531 Unknown [id number] 2.16.840.1.410026.3.579.2.531 Social History Date Type Detail Facility Start: 09-19-2022 End: 05-29-2023 No alcohol use No alcohol use [facility] 250 DO Work Phone: Comment on above: 2 cups coffee daily; Start: 07-19-2019 End: 03-31-2022 Tobacco smoking status NHIS Never smoked tobacco (finding) [facility] Start: 1934 End: 1934 Sex Assigned At Male [facility] Start: 02-28-2022 Dept. of D ermatology Start: 03-31-2022 End: 07-11-2023 Tobacco use and exposure Smokeless tobacco non-user [employer] Start: 05-29-2023 End: 03-06-2024 Alcohol intake Ex-drinker (finding) [employer] [facility] Start: 09-19-2022 End: 05-29-2023 [facility] Utilities [facility] Has the [employer], [employer], [employer], or water [employer] threatened to shut off services in your home in past 12Mo No [facility] [employer] [facility] Are you now , , , , never or living with a partner? [facility] How often to you hav e a drink containing alcohol? Never [facility] How many standard drinks containing alcohol do you have on a typical day? Patient does not drink [facility] Do you feel stress - tense, restless, nervous, or anxious, or unable to sleep at night because your mind is troubled all the time - these days [OSQ] Not at all [employer] [facility] Start: 1935 Sex Assigned At Not on file P [place] [employer] Start: 11-05-2023 End: 03-04-2024 Alcoholic beverage intake Lifetime non-drinker (finding) [facility] Work Phone: Start: 10-26-2023 End: 03-04-2024 Exposure to SARS-CoV-2 (event) Not sure [facility] Start: 12-24-2014 Sex Male (finding) [facility] Medical Equipment Procedure Code Equipment Code Equipment Origin al Text Equipment Identifier Dates Willow Rodriguez Icd D f1 [facility] [id number] Start: 03-04-2024 Goals Date Patient Goal [...] disease due to type 2 diabetes mellitus ([facility]) Blood pressure at goal. CMP done prior to his pacemaker surgery was reviewed and showed stage 4 chronic kidney disease which is stable. Hypertensive 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 ([facility]) - Uric acid; Future - Magnesium; Future - Vitamin D 25 hydroxy; Future - Parathyroid Hormone, intact; Future - Phosphorus; Future Check chronic kidney disease labs Cardiomyopathy ([facility]) Stable. 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 Last A1c was 6.5% with diet control only. documented in this encounter [facility] 03-04-2024 Attending History and physical note H&P reviewed. The patient was examined and there are no changes to the H&P. Source Note - Nicole Rose MD - 02/26/2024 9:45 AM EDT Images from the original note were not included. Referring Provider: Adri Mckenzie MD Reason for Consult: Generator change History of Present Illness: Donovan Jacome is a 88 y.o. year old male patient with a history significant for dilated cardiomyopathy status post ICD, hypertension, hyperlipidemia who is referred by Dr. Mckenzie for generator change for device at [facility]. 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 He has an atrial pacesetter lead as well as a Riata lead in the RV. He has chronic atrial lead noise reversion episodes. He has 98% atrial paced and ventricular plate paced less than 1% the time. His device reached [facility] in January 2024. He is here [...] Last device interrogation 02/05/2024 shows device at [facility], predominantly atrial paced, minimal ventricular pacing, [...] his ICD, initially placed in 2002, at [facility]. He will need a generator change. [...] routine generator change of his device at [facility]. His device will reach end-of-life in April. The risks and benefits of generator change were discussed in detail, including infection, bleeding, hematoma, damage to the existing leads, etc. The patient is agreeable to move forward with generator change. Name: Donovan Jacome Attending: Nicole Rose MD Procedure: ICD generator change Date desired: As soon as possible Diagnosis: Device at [facility] Vendor if applicable: [employer] Expected anesthesia: [...] or concerns. Nicole Rose MD Clinical Cardiac Polisher And Sander, [facility] [place] Floor Worker Well Servicesales coordinator, [employer] Director of Atrial Fibrillation Ablation, [facility]hythm[facility], [facility] Office [facility] Work Phone: 03-04-2024 History and physical note H&P reviewed. The patient was examined and there are no changes to the H&P. Source Note - Nicole Rose MD - 02/26/2024 9:45 AM EDT Images from the original note were not included. Referring Provider: Adri Mckenzie MD Reason for Consult: Generator change History of Present Illness: Donovan Jacome is a 88 y.o. year old male patient with a history significant for dilated cardiomyopathy status post ICD, hypertension, hyperlipidemia who is referred by Dr. Mckenzie for generator change for device at [facility]. 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 He has an atrial pacesetter lead as well as a Riata lead in the RV. He has chronic atrial lead noise reversion episodes. He has 98% atrial paced and ventricular plate paced less than 1% the time. His device reached [facility] in January 2024. He is here [...] Last device interrogation 02/05/2024 shows device at [facility], predominantly atrial paced, minimal ventricular pacing, [...] his ICD, initially placed in 2002, at [facility]. He will need a generator change. [...] routine generator change of his device at [facility]. His device will reach end-of-life in [...] or concerns. Nicole Rose MD Clinical Cardiac Polisher And Sander, [facility] [place] Floor Worker Well Servicesales coordinator, [employer] [facility] [employer] Director of Atrial Fibrillation Ablation, [facility] Ventricular Arrhythmias Research, [facility] Office documented in this encounter [facility] Work Phone: 03-04-2024 Nurse Note Discharge instructions reviewed with patient and son. Discussed in depth post procedure restrictions and follow up appointments. Questions and concerns addressed. Left upper chest remains stable and unchanged. Plan to dc home. [facility] Work Phone: 03-04-2024 Nurse Note Discharge instructions [...] continue to monitor. documented in this encounter [facility] Work Phone: 03-04-2024 Nurse Note Patient returned from EP lab, sp ICD gen change. Left upper chest incision closed with aquacel dressing and CDI. Ice pack applied to site. Patient A&Ox4 and has no c/o at this time. VSS. Family at bedside, will continue to monitor. [facility] Work Phone: 03-04-2024 Hospital Discharge instructions Aleena Fairbanks, ENZYME CHEMIST-SAND OPERATOR - 03/04/2024 3:39 PM EDT Images [...] have been instructed by the device company liability claims representative regarding remote home monitoring. There are [...] after visit summary documented in this encounter [facility] Work Phone: 03-04-2024 Note Formatting of this n ote might be different from the original. Sedation Plan ASA 2 Mallampati class: I. Risks, benefits, and alternatives discussed with patient. [facility] Work Phone: 03-04-2024 Miscellaneous Notes Sedation Plan ASA 2 Mallampati class: I. Risks, benefits, and alternatives discussed with patient. documented in this encounter [facility] Work Phone: 02-26-2024 History of Present illness Narrative Images from the original note were not included. Referring Provider: Adri Mckenzie MD Reason for Consult: Generator change History of Present Illness: Donovan Jacome is a 88 y.o. year old male patient with a history significant for dilated cardiomyopathy status post ICD, hypertension, hyperlipidemia who is referred by Dr. Mckenzie for generator change for device at [facility]. 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 He has an atrial pacesetter lead as well as a Riata lead in the RV. He has chronic atrial lead noise reversion episodes. He has 98% atrial paced and ventricular plate paced less than 1% the time. His device reached [facility] in January 2024. He is here [...] Last device interrogation 02/05/2024 shows device at [facility], predominantly atrial paced, minimal ventricular pacing, [...] his ICD, initially placed in 2002, at [facility]. He will need a generator change. [...] routine generator change of his device at [facility]. His device will reach end-of-life in [...] or concerns. Nicole Rose MD Clinical Cardiac Polisher And Sander, [facility] [place] Floor Worker Well Servicesales coordinator, [employer] [facility] [employer] Director of Atrial Fibrillation Ablation, [facility] Ventricular Arrhythmias Research, [facility] Office documented in this encounter [facility] Work Phone: 11-05-2023 History of Present illness [...] discussion and plan. documented in this encounter [facility] Work Phone: 11-05-2023 Instructions Dex [...] of your visit. documented in this encounter [facility] Work Phone: 08-06-2023 History of [...] and renal disease with (congestive) heart failure ([facility]) - TSH; Future - Comprehensive metabolic panel; Future Blood pressure at goal. Continue current regimen. Check CMP and TSH. Hyperlipidemia, unspecified hyperlipidemia type - Lipid panel; Future Check lipid panel Stage 4 chronic kidney disease ([facility]) TSH; Future Check TSH and CMP. Type 2 diabetes mellitus without complication, without long-term current use of insulin ([facility]) - Hemoglobin A1c; Future - TSH; Future Check A1c. Hyperparathyroidism ([facility]) Check kidney function test. Malignant melanoma of scalp or neck ([facility]) He does not want to go back to see the specialist. I am not sure what surgery the specialist had planned Longstanding persistent atrial fibrillation ([facility]) Seems to be in sinus rhythm now. Continue Eliquis Paroxysmal atrial fibrillation ([facility]) Microalbuminuric diabetic nephropathy ([facility]) Check labs [facility] History of Present illness Narrative Subjective [...] orders for this visit: Paroxysmal atrial fibrillation ([facility]) - Protime & INR; Future New order for protime and INR given to the patient. I will also fax to the [facility]. Hypertensive heart and renal disease with [...] Check lipid panel documented in this encounter [employer] [facility] Evaluation note No assessment inform ation available [facility] Work Phone: Evaluation note N/A Dept. of Dermato logy Evaluation note Diagnosis Paroxysmal atrial fibrillation (CMS-HCC)- Primary Atrial fibrillation 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) Essential hypertension Unspecified essential hypertension Hypothyroidism, unspecified type Type 2 diabetes mellitus without complication, without long-term current use of insulin ([facility]) Arteriosclerotic vascular disease Generalized and unspecified atherosclerosis documented in this encounter [facility]* Diagnosis Longstanding persistent atrial fibrillation (CMS-HCC)- Primary documented in this encounter [facility]* Diagnosis Hypertensive heart and renal [...] fibrillation (CMS-HCC) Atrial fibrillation Microalbuminuric diabetic nephropathy ([facility]) documented in this encounter [facility]* Diagnosis Type 2 diabetes mellitus without complication, without long-term current use of insulin (CMS-HCC)- Primary 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) [facility] this [facility]* Diagnosis Arteriosclerotic cardiovascular disease (ASCVD)- Primary Unspecified cardiovascular disease Essential hypertension Unspecified essential hypertension Mixed hyperlipidemia Ventricular tachycardia (Multi) Paroxysmal ventricular tachycardia ICD (implantable cardioverter-defibrillator) in place Dilated cardiomyopathy (Multi) Other primary cardiomyopathies Ischemic cardiomyopathy Other specified forms of chronic ischemic heart disease documented in this encounter [facility] Work Phone: Evaluation note* Diagnosis ICD (implantable cardioverter-defibrillator) in place Ventricular tachycardia (Multi) Paroxysmal ventricular tachycardia Ischemic cardiomyopathy Other specified forms of chronic ischemic heart disease ICD (implantable cardioverter-defibrillator) in place Ventricular tachycardia (Multi) Paroxysmal ventricular tachycardia ICD (implantable cardioverter-defibrillator) in place Ventricular tachycardia (Multi) Paroxysmal ventricular tachycardia documented in this encounter [facility] Work Phone: Evaluation note* Diagnosis ICD (implantable cardioverter-defibrillator) in place- Primary Ventricular tachycardia (Multi) Paroxysmal ventricular tachycardia documented in this encounter [facility] Work Phone: Evaluation note* Diagnosis Hypertension associated with 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 ([facility])- Primary Hypertensive 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 ([facility]) Cardiomyopathy ([facility]) Stage 4 chronic kidney disease ([facility]) Type 2 diabetes mellitus without complication, without long-term current use of insulin ([facility]) documented in this encounter [facility]* Diagnosis Vitamin D deficiency- Primary [facility] this [facility] System[facility] Narrative* Patient [...] the above we will continue as is. -[facility]ad 250 DO Work Phone: History of Present [...] the above we will continue as is. -[facility] Work Phone: History of Present [...] above we suggest continued therapy as before- [facility] [employer] 250 DO Work Phone: History of Present [...] significant cardiac hx with decreased cardiac function [facility] Work Phone: History of Present illness NarrativePatient [...] we believe his cardiac status to be stable.[facility]-Shahzad 250 DO Work Phone: History [...] we suggested continued therapy as before without change.[facility] 250 DO Work Phone: InstructionsNot on filedocumented in this encounter [facility] SystemInstructionsNot on filedocumented in this encounter [facility] SystemInstructionsNot on filedocumented in this encounter [facility] SystemInstructionsNot on filedocumented in this encounter [facility] SystemInstructionsNot on filedocumented in this encounter [facility] SystemReason for referral (narrative)* Name Reason for referral NA [facility] Dept. of Dermatology Reason for referral (narrative)* Consultation (Routine) - Authorized Specialty Diagnoses / Procedures Referred By Nuvia ware Referred To Contact Cardiology Diagnoses Arteriosclerotic cardiovascular disease (ASCVD) Procedures Follow Up In Cardiology Aidan Langston MD [address] [facility] [address], [address] [address] Adri Mckenzie MD [address] [facility] [address], [address] [address] Referral ID Status Reason Start Date Expiration Date V isits Requested Visits Authorized [id number] Authorized 11/05/2023 11/04/2024 1 1 [facility] Work Phone: Reason for visit Narrative* Auth/Cert Specialty Diagnoses / Procedures Referred By Nuvia t Referred To Contact Diagnoses ICD (implantable cardioverter-defibrillator) in place Ventricular tachycardia (Multi) ICD (implantable cardioverter-defibrillator) in place [Z95.810] Ventricular tachycardia (Multi) [I47.20] Procedures [place] RMVL IMPLTBL DFB PLSE GEN W/RPLCMT PLSE GEN 2 LD ICD DC Generator Change Nicole Rose MD [address] [place] [address] [place] [facility] [address] [place] [address] Referral ID Status Reason Start Date Expiration Date Visits Re quested Visits Authorized [id number] 1 1 [facility] Work Phone: Summary Purpose Family [...] Procedures ECG 12 Lead Nicole Rose MD [facility] [place] [address] Referral ID Status Reason Start Date Expiration Date V isits Requested Visits Authorized [id number] Authorized 02/26/2024 02/25/2025 1 1 Specialty Diagnoses / Procedures Referred By Contac t Referred To Contact Cardiology Diagnoses ICD (implantable cardioverter-defibrillator) in place Procedures Cardiac Device Check - In Clinic Aleena Fairbanks, ENZYME CHEMIST-[facility] [address] [facility], [address] [address] Referral ID Status Reason Start Date Expiration Date Visits Requested Visits Authorized [id number] Pending Review Perform Procedure 03/04/2025 1 1 Specialty Diagnoses / Procedures Referred By Contac t Referred To Contact Cardiology Diagnoses ICD (implantable cardioverter-defibrillator) in place Procedures Follow Up In Cardiology Aleena Fairbanks, ENZYME CHEMIST-SAND OPERATOR [address] [facility], [facility] [address] [place] [address] Referral ID Status Reason Start Date Expiration Date V isits Requested Visits Authorized [id number] Authorized 03/04/2024 03/04/2025 1 1 Additional Source Comments (unrecognized sect ion and content) No Status Records FoundNo Status Records FoundNo Status Records FoundNo Status Records FoundNo Status Records FoundNo Status Records FoundNo Status Records FoundNo Status Records FoundNo Status Records FoundNo Status Records FoundNo Status Records Found INFORMATION SOURCE (unrecogn ized section and content) DATE CREATED AUTHOR 08/08/2019 [facility] DATE CREATED AUTHOR AUTHOR'S ORGANIZ ATION 02/27/2020 [facility] DATE CREATED AUTHOR AUTHOR'S ORGANIZ ATION 08/24/2021 [facility] DATE CREATED AUTHOR AUTHOR'S ORGANIZ ATION 10/27/2022 [facility] DATE CREATED AUTHOR AUTHOR'S ORGANIZ ATION 01/14/2023 [facility] DATE CREATED AUTHOR AUTHOR'S ORGANIZ ATION 03/06/2024 [facility] DATE CREATED AUTHOR AUTHOR'S ORGANIZ ATION 03/06/[address] [facility] DATE CREATED AUTHOR AUTHOR'S ORGANIZ ATION 03/08/2024 [facility] DATE CREATED AUTHOR AUTHOR'S ORGANIZ ATION 03/09/2024 [facility] DATE CREATED AUTHOR AUTHOR'S ORGANIZ ATION 03/13/2024 [facility] DATE CREATED AUTHOR AUTHOR'S ORGANIZ ATION 04/18/2024 [facility] Care Teams (unrecognized sec tion and content) Team Status: Active Member Role Status Dates Phil Morin DO Primary Care Provider Active Team Status: Inactive Member Role Status Dates Phil Morin DO Primary Care Provider Active Aidan Langston MD Attending Provider Active Lead Generator Relationship Specialty Start Date End Date Phil Morin DO [address], [place] [address] PCP - General Family Medicine 03/07/22 Team Status: Inactive Member Role Status Dates Phil Morin DO Primary Care Provider Active Start: June 28, 2023 End: June 28, 2023 Aidan Langston MD Attending Provider Active Start: June 28, 2023 End: June 28, 2023 Lead Generator Relationship Specialty Start Date End Date Phil Morin DO [address], [place] [address] PCP - General Family Medicine 03/07/22 Lead Generator Relationship Specialty Start Date End Date Phil Morin DO [address], [place] [address] PCP - General Family Medicine 03/07/22 Lead Generator Relationship Specialty Start Date End Date Phil Morin DO [address], [place] [address] PCP - General Family Medicine 03/07/22 Lead Generator Relationship Specialty Start Date End Date Phil Morin DO [address] [place] [address] [address] PCP - General Family Medicine 03/07/22 Team Status: Inactive Member Role Status Dates Phil RonnelldestinyDO yrn Primary Care Provider Active Start: September 27, 2023 End: September 27, 2023 Aidan Langston MD Attending Provider Active Start: September 27, 2023 End: September 27, 2023 Lead Generator Relationship Specialty Start Date End Date Phil Morin DO [address], [place] [address] PCP - General 05/06/14 Team Status: Inactive Member Role Status Dates Phil RonnelldestinyDO yrn Primary Care Provider Active Start: December 27, 2023 End: December 27, 2023 Aidan Langston MD Attending Provider Active Start: December 27, 2023 End: December 27, 2023 Team Status: Inactive Member Role Status Dates Phil ReynagadestinyDO yrn Primary Care Provider Active Start: February 05, 2024 End: February 05, 2024 Adri Mckenzie MD Attending Provider Active Start: February 05, 2024 End: February 05, 2024 Lead Generator Relationship Specialty Start Date End Date Phil Morin DO [address], [place] [address] PCP - General Family Medicine 02/26/24 Lead Generator Relationship Specialty Start Date End Date Phil Morin DO [address] [place] [address] [address] PCP - General Family Medicine 02/26/24 Goals [...] in place Ventricular tachycardia (Multi) Ischemic cardiomyopathy Adri Mckenzie MD [address] [facility] [address], [address] [address] Referral ID Status Reason Start Date Expiration Date Visits Requested Visits Authorized [id number] Authorized Specialty Services Required 02/12/2024 02/11/2025 1 [...] preparation 1225 (Given - Provid er: Nikki Johnson RN) mupirocin (Bactroban) 2 % ointment 1 [...] BE BASED ON THE PRIMARY CLINICAL RECORDS. [facility] [employer] [facility]. provides no warranty or guarantee of the accuracy or completeness of information in this document.
[2024-05-16 09:21] LABS: INR 2.94
== END 2024-05-16 08:54 | disposition home or self-care (01) ==
LOC: LAB 08:54
PROVIDERS: PCP Family Medicine; Visit Provider Family Medicine
DX: I48.11 Longstanding persistent atrial fibrillation (principal)
CPT/HCPCS: 36415; 85610

== ENCOUNTER 2024-06-18 09:03 | Outpatient (OUT) | payer MEDICARE, SELFPAY ==
--- OUTSIDE RECORDS SUMMARY | 2024-06-18 09:15 | XMS_ITS | CCD ---
Author Organization [facility] CliniSysd Care Team Providers Care Lettuce Trimmer Name Role Phone Phil Morin Unavailable Unavailable Unavailable Ronnellloyrn, DO Villarreal Primary Care Provider MD Aidan Langston Attending Provider Karlie Craig Unavailable Unavailable Florentino Kumari Unavailable Unavailable Furlong, DO Villarreal Primary Care Provider [phone] MD Aidan Langston Attending Provider Jaimie Estevez Unavailable Unavailable Furlong, DO Villarreal Primary Care Provider [phone] MD Aidan Langston Attending Provider SUSANNAH, DR JARON Roger Admitting Unavailable KUNS, DR JARON Roger Consulting Unavailable KUNS, DR JARON Rogre Attending Unavailable FURLONG, DR PHIL Soliz Primary Care Unavailable FURLONG, DR PHIL Soliz Consulting Unavailable FURLONG, DR PHIL Soliz Admitting Unavailable FURLONG, DR PHIL Soliz Attending Unavailable FURLONG, DR PHIL Soliz Primary Care Unavailable KUNS, DR JARON Roger Consulting Unavailable KUNShalonda, DR JARON Roger Attending Unavailable FURLONG, DR PHIL Soliz Primary Care Unavailable KUNS, DR JARON Roger Admitting Unavailable KUNS, DR JARON Roger Consulting Unavailable KUNShalonda, DR JARON Roger Attending Unavailable KUNShalonda, DR JARON Roger Admitting Unavailable FURLONG, DR PHIL Soliz Primary Care Unavailable KUNS, DR JARON Roger Consulting Unavailable KUNShalonda, DR JARON Roger Attending Unavailable KUNS, DR JARON Roger Admitting Unavailable FURLONG, DR PHIL Soliz Primary Care Unavailable KUNShalonda, DR JARON Roger Consulting Unavailable KUNS, DR JARON Roger Attending Unavailable KUNShalonda, DR [...] DR PHIL Soliz Consulting Unavailable FURLONG, DR HPIL Soliz Attending Unavailable [...] Care Provider MD Aidan Langston Attending Provider Furng Phil PATEL Primary Care Provider Furdestinyng, DO Villarreal Primary Care Provider MD Aidan Langston Attending Provider Furlong, DO Phil Primary Care Provider MD Aidan Langston Attending Provider Furdestinyng Phil PATEL Primary Care Provider Furlong, DO Phil Primary Care Provider MD Aidan Langston Attending Provider MD Adri Mckenzie Attending Provider [facility] PATEL Primary Care Provider ROSEGLORIAJOEY Attending Unavailable FURLONG, PHIL ORONA Primary Care Unavailab le TRABOULSSIADRI Referring Unavailable FURLONG, PHIL DAWOA Primary Care Unavailab le FURLONG, PHIL G [...] Unavailable FURLONG, PHIL G Primary Care Unavailable MCGAIDAN BETANCOURT Attending Unavailable FURLONG, PHIL ADWOA Primary Care Unavailab le FURLONG, PHIL ADWOA Primary Care Unavailab le Furlong, Phil Primary Care Unavailable Aidan Langston Attending Unavail able McGuinnAidan Admitting Unavail able McGuinnAidan Admitting Unavail able Furlong, Phil Primary Care Unavailable McGAidan betancourt Attending Unavail able McGuinnAidan Admitting Unavail able Furlong, Phil Primary Care Unavailable Aidan Langston Attending Unavail able Furlong, Phil Primary Care Unavailable Traboulssi, Chasf Attending Unavailable Traboulssi, Chasf Admitting Unavailable Allergies Allergy Classification Reported Allergen(s) Allergy Type Date of Onset Reaction(s) Facility (20 sources) Aspirin; Translations: [aspirin] Drug Allergy 2 Other (See Comments), GI bleeding [facility] 250 DO Work Phone: (1 [...] sources) alpha-Adrenergic Gen, beta-Adrenergic Gen Start: 04-24-2014 End: 11-05-2023 carvediloL (COREG) 6.25 mg tablet 01/24/2022 Active cholecalciferol 1.25 mg oral capsule (3 sources) Vitamin D Start: 03-10-2024 take 1 capsule by mouth every week cholecalciferol (VITAMIN D3) 50,000 units capsule Take 1 capsule (50,000 Units total) by mouth once a week. 12 capsule 3 03/10/2024 Active eplerenone 25 mg oral tablet (20 sources) Aldosterone Antagonist Start: 04-24-2014 End: 02-26-2025 eplerenone (INSPRA) 25 mg tablet 01/22/2022 Active esomeprazole 20 mg delayed release oral capsule (9 sources) Proton Pump Inhibitor esomeprazo le (NexIUM) 20 mg capsule daily as needed. Active fluticasone propionate 0.05 mg/actuat metered dose nasal spray (17 sources) Corticosteroid Start: 07-19-2019 Fluticasone Propionate Active [...] complication, without long-term current use of insulin ([facility]) , Hypertensive 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 ([facility]) Take 1 tablet (5 mg total) [...] Documented Da te Episodic/Chronic Acute myocardial infarction (18 sources) Myocardial infarction; Translations: [Acute myocardial infarction of unspecified site, episode of care unspecified] Onset: 2 03-07-2022 Chronic Cancer of bladder (20 sources) Cancer in situ of urinary bladder; 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] Onset: 2 03-07-2022 Chronic Cancer of brain and nervous system (12 sources) History of malignant neoplasm of brain; Translations: [Personal history of malignant neoplasm of brain] Episodic Cardiac dysrhythmias (20 sources) Ventricular tachycardia; Translations: [Paroxysmal ventricular tachycardia] Onset: 2 Chronic Chronic kidney disease (20 sources) Chronic kidney disease; Translations: [Chronic kidney disease, unspecified] Onset: 6 03-07-2022 Chronic Conduction disorders (20 sources) Automatic implantable cardiac defibrillator in situ; Translations: [Automatic implantable cardiac defibrillator in situ] Onset: 3 11-05-2023 Chronic Coronary atherosclerosis and other heart disease (20 sources) History of myocardial infarction; Translations: [Old myocardial infarction] Onset: 2 05-29-2023 Chronic Diabetes mellitus with complications (12 sources) Microalbuminuric diabetic nephropathy; Translations: [Type 2 diabetes mellitus with diabetic nephropathy] Onset: 8 03-07-2022 Chronic Diabetes mellitus without complication (15 sources) Type 2 diabetes mellitus without complication; Translations: [Type 2 diabetes mellitus without complications] Onset: 6 05-29-2023 Chronic Disorders of lipid metabolism (20 sources) Hyperlipidemia; Translations: [Other and unspecified hyperlipidemia] Onset: 6 03-07-2022 Chronic Essential hypertension (20 sources) Essential hypertension; Translations: [Unspecified essential hypertension] Onset: 6 05-29-2023 Chronic Glaucoma (9 sources) Glaucoma; Translations: [Unspecified glaucoma] Onset: 6 03-07-2022 Chronic Hypertension with complications and secondary hypertension (15 sources) Hypertensive 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; Translations: [Hypertensive heart and chronic kidney disease with heart failure and stage 1 through stage 4 chronic kidney disease, or unspecified chronic kidney disease] Onset: 2 05-29-2023 Chronic Malignant neoplasm without specification of site (18 sources) Malignant neoplastic disease; Translations: [Other malignant neoplasm without specification of site] Onset: 2 03-07-2022 Chronic Melanomas of skin (20 sources) Malignant melanoma; Translations: [Melanoma of skin, site unspecified] Onset: 2 03-07-2022 Chronic Neoplasms of unspecified nature or uncertain behavior (6 sources) Neoplasm of uncertain behavior of skin Onset: Episodic Nutritional deficiencies (10 sources) Vitamin D deficiency; Translations: [Vitamin D deficiency, unspecified] Onset: 7 03-07-2022 Chronic Osteoporosis (9 sources) Osteoporosis; Translations: [Age-related osteoporosis without current pathological fracture] Onset: 2 03-07-2022 Chronic Other acquired deformities (9 sources) Contracture of joint of left ankle; Translations: [Contracture, left ankle] Onset: 2 03-07-2022 Chronic Other aftercare (12 sources) Drug therapy finding; Translations: [Long-term (current) use of other medications] Episodic Other diseases of kidney and ureters (9 sources) Renal mass; Translations: [Other specified disorders of kidney and ureter] Onset: 6 03-07-2022 Chronic Other ear and sense organ disorders (9 sources) Asymmetrical sensorineural hearing loss; Translations: [Sensorineural hearing loss, bilateral] Onset: 2 03-07-2022 Chronic Other endocrine disorders (10 sources) Hyperparathyroidism; Translations: [Hyperparathyroidism, unspecified] Onset: 2 [...] health status] Onset: 2 Episodic Thyroid disorders (11 sources) Hypothyroidism; Translations: [Hypothyroidism, unspecified] Onset: 8 [...] Documented Da te Episodic/Chronic Biliary tract disease (17 sources) Biliary colic; Translations: [Calculus of bile duct without cholangitis or cholecystitis without obstruction] Onset: 02-06-2020 07-19-2019 Episodic Cardiac dysrhythmias (15 sources) Palpitations; Translations: [Palpitations] Onset: 03-01-2023 03-01-2023 Episodic Crushing injury or internal injury (9 sources) Perinephric hematoma; Translations: [Minor contusion of unspecified kidney, initial encounter] Onset: 03-07-2022 03-07-2022 Episodic Mood disorders (9 sources) Mood disorders Onset: 05-29-2023 Resolved: 08-06-2023 05-29-2023 Other aftercare (3 sources) Taking high risk medication; Translations: [Other intermediate (current) drug therapy] Onset: 03-01-2023 03-01-2023 Episodic Other gastrointestinal disorders (5 sources) Nontraumatic hemoperitoneum; Translations: [Nontraumatic retroperitoneal hematoma] Onset: 05-29-2015 03-07-2022 Episodic Other gastrointestinal disorders (4 sources) Hemoperitoneum (nontraumatic); Translations: [Nontraumatic retroperitoneal hematoma] Onset: 05-29-2015 03-07-2022 Episodic Other lower respiratory disease (20 sources) Dyspnea on exertion; Translations: [Shortness of breath] Onset: 03-01-2023 05-29-2023 Episodic Other non-epithelial cancer of skin (18 sources) Basal cell carcinoma of skin; Translations: [Basal cell carcinoma of skin of scalp and neck] Onset: 03-07-2022 03-07-2022 Episodic Other nutritional; endocrine; and metabolic disorders (9 sources) Hyperuricemia; Translations: [Hyperuricemia without signs of inflammatory arthritis and tophaceous disease] Onset: 02-08-2017 03-07-2022 Episodic Other skin disorders (9 sources) Actinic keratosis; Translations: [Actinic keratosis] Onset: 03-07-2022 03-07-2022 Episodic Residual codes; unclassified (20 sources) Body mass index 20-24 - normal; [...] (GLYCO-HGB)on 2023 Glucose [Mass/Vol] 131 mg/dL Normal [facility] Comment on above: Performed By: #### H A1C, 00878-7, 2777-1, 3084-1, 2731-8, 45637-7 #### [facility] ([id number]) [address], [address] [place] [address] HbA1c (Bld) [Mass fraction] 6.2 % High 4.4-5.6 [facility] Comment on above: Result Comment: NOTE ADA Guidelines Result HgbA1c Normal : less than 5.7 % Prediabetes : 5.7 % to 6.4 % Diabetes : > 6.4 % Use with caution in patients with abnormal hemoglobin variants as the half-life of red blood cells and in vivo glycation rates are affected. Performed By: #### H A1C, 68378-7, 2777-1, 3084-1, 2731-8, 43630-8 #### [facility] ([id number]) [address], [address] [place] [address] MAGNESIUMon 03-06-2024 Magnesium [Mass/Vol] 2.3 mg/dL Normal 1.8-2.6 [facility] Comment on above: Performed By: #### H A1C, 18798-4, 2777-1, 3084-1, 2731-8, 76295-4 #### [facility] ([id number]) [address], [address] [place] [address] PHOSPHORUSon 03-06-2024 Phosphate [Mass/Vol] 4.2 mg/dL Normal 2.4-4.9 [facility] Comment on above: Performed By: #### H A1C, 63240-2, 2777-1, 3084-1, 2731-8, 40006-4 #### [facility] ([id number]) [address], [address] [place] [address] Parathyrin.intact [Mass/Vol] on 03-06-2024 PTH INTACT 203 pg/mL High 12-88 [facility] Comment on above: Performed By: #### H A1C, 24988-0, 2777-1, 3084-1, 2731-8, 20630-8 #### [facility] ([id number]) [address], [address] [place] [address] URIC ACIDon 03-06-2024 Urate [Mass/Vol] 8.6 mg/dL High 2.6-7.2 [facility] Comment on above: Performed By: #### H A1C, 66173-7, 2777-1, 3084-1, 2731-8, 82593-9 #### [facility] ([id number]) [address], [address] [place] [address] Vitamin D+Metabolites [Mass/ Vol]on 03-06-2024 VITAMIN D 25 HYD TOT 27.9 ng/mL Low 30-100 [facility] Comment on above: Result Comment: Vitamin D status 25 [place] Vitamin D Deficiency <20 ng/mL Insufficiency 20-29 ng/mL Sufficiency 30-100 ng/mL Toxicity >100 ng/mL NOTE: A pediatric reference range has not been established by the patching machine operator of this kit. The [place] [employer] recommends a Vitamin D level of = or >20ng/mL in infants and children. Performed By: #### H A1C, 65197-7, 2777-1, 3084-1, 2731-8, 71168-2 #### [facility] ([id number]) [address], [address] [place] [address] Basic metabolic 2000 panelon 03-04-2024 Anion gap [Moles/Vol] 13 mmol/L 10 - 20 mmol/L [facility] Calcium [Mass/Vol] 9.2 mg/dL 8.6 - 10. 3 mg/dL [facility] Chloride [Moles/Vol] 106 mmol/L 98 - 107 mmol/L [facility] CO2 [Moles/Vol] 25 mmol/L 21 - 32 mmol/L [facility] Creatinine [Mass/Vol] 2.31 mg/dL High 0.50 - 1.30 mg/dL [facility] GFR/1.73 sq M.predicted among non-blacks MDRD (S/P/Bld) [Vol rate/Area] 26 mL/min/{1.73_m2} Low - PINF [facility] Comment on above: Calculations of katey mated GFR are performed using the 2020 CKD-EPI Study Refit equation without the race variable for the IDMS-Traceable creatinine methods. https://jasn.asnjournals.org/content//ASN.43963577 88 Glucose [Mass/Vol] 106 mg/dL High 74 - 99 mg/dL [facility] Interpretation and review of laboratory results Abnormal [facility] Potassium [Moles/Vol] 4.1 mmol/L 3.5 - 5.3 mmol/L [facility] Sodium [Moles/Vol] 140 mmol/L 136 - 145 mmol/L [facility] Urea nitrogen [Mass/Vol] 45 mg/dL High 6 - 23 mg/dL [facility] Anion gap [Moles/Vol] 13 mmol/L Normal 10-20 [facility] Comment on above: Performed By: #### 2 4321-2 #### CRYSTAL JURADO ([id number]) [facility] ([facility]) [address] [place] [address] Calcium [Mass/Vol] 9.2 mg/dL Normal 8.6-10.3 [facility] Comment on above: Performed By: #### 2 4321-2 #### CRYSTAL JURADO ([id number]) [facility] ([facility]) [address] [place] [address] 10495 Chloride [Moles/Vol] 106 mmol/L Normal 98-107 [facility] Comment on above: Performed By: #### 2 4321-2 #### CRYSTAL JURADO ([id number]) [facility] ([facility]) [address] [place] [address] 72633 CO2 [Moles/Vol] 25 mmol/L Normal 21-32 [facility] Comment on above: Performed By: #### 2 4321-2 #### CRYSTAL JURADO ([id number]) [facility] ([facility]) [address] [place] [address]307 Creatinine [Mass/Vol] 2.31 mg/dL High 0.50-1.30 [facility] Comment on above: Performed By: #### 2 4321-2 #### CRYSTAL JURADO ([id number]) [facility] ([facility]) [address] [place] [address] 71307 Glomerular filtration rate/1.73 sq M.predicted 26 mL/min/1.73m*2 Low >60 [facility] Comment on above: Result Comment: Calc ulations of estimated GFR are performed using the 2020 CKD-EPI Study Refit equation without the race variable for the IDMS-Traceable creatinine methods. https://jasn.asnjournals.org/content//ASN.41507620 88 Performed By: #### 2 4321-2 #### CRYSTAL JURADO ([id number]) [facility] ([facility]) [address] [place] [address]19 Glucose [Mass/Vol] 106 mg/dL High 74-99 [facility] Comment on above: Performed By: #### 2 4321-2 #### CRYSTAL JURADO ([id number]) [facility] ([facility]) [address] [place] [address] 54855 Potassium [Moles/Vol] 4.1 mmol/L Normal 3.5-5.3 [facility] Comment on above: Performed By: #### 2 4321-2 #### CRYSTAL JURADO ([id number]) [facility] ([facility]) [address] [place] [address] 78910 Sodium [Moles/Vol] 140 mmol/L Normal 136-145 [facility] Comment on above: Performed By: #### 2 4321-2 #### CRYSTAL JURADO ([id number]) [facility] ([facility]) [address] [place] [address] 18127 Urea nitrogen [Mass/Vol] 45 mg/dL High 6-23 [facility] Comment on above: Performed By: #### 2 4321-2 #### CRYSTAL JURADO ([id number]) [facility] ([facility]) [address] [place] [address] 45164 CBC panel Auto (Bld)on 03-04 Erythrocyte distribution width (RBC) [Ratio] 14.9 % High 11.5 - 14.5 % [facility] Hematocrit (Bld) [Volume fraction] 38.8 % Low 41.0 - 52.0 % [facility] Hemoglobin (Bld) [Mass/Vol] 12.6 g/dL Low 13.5 - 17.5 g/dL [facility] Interpretation and review of laboratory results Abnormal [facility] MCH (RBC) [Entitic mass] 28.7 pg 26.0 - 34.0 pg [facility] MCHC (RBC) [Mass/Vol] 32.5 g/dL 32.0 - 36.0 g/dL [facility] MCV (RBC) [Entitic vol] 88 fL 80 - 100 fL [facility] Nucleated RBC/100 WBC (Bld) [Ratio] 0.0 % [facility] Platelets (Bld) [#/Vol] 185 10*3/uL [facility] RBC (Bld) [#/Vol] 4.39 10*6/uL Low [facility] WBC (Bld) [#/Vol] 7.3 10*3/uL [facility] Erythrocyte distribution width (RBC) [Ratio] 14.9 % High 11.5-14.5 [facility] Comment on above: Performed By: #### 5 8410-2 #### CRYSTAL JURADO ([id number]) [facility] ([facility]) [address] [place] [address] 02237 Hematocrit (Bld) [Volume fraction] 38.8 % Low 41.0-52.0 [facility] Comment on above: Performed By: #### 5 8410-2 #### CRYSTAL JURADO ([id number]) [facility] ([facility]) [address] [place] [address] 98736 Hemoglobin (Bld) [Mass/Vol] 12.6 g/dL Low 13.5-17.5 [facility] Comment on above: Performed By: #### 5 8410-2 #### CRYSTAL JURADO ([id number]) [facility] ([facility]) [address] [place] [address] 76994 MCH (RBC) [Entitic mass] 28.7 pg Normal 26.0-34.0 [facility] Comment on above: Performed By: #### 5 8410-2 #### CRYSTAL JURADO ([id number]) [facility] ([facility]) [address] [place] [address] 95473 MCHC (RBC) [Mass/Vol] 32.5 g/dL Normal 32.0-36.0 [facility] Comment on above: Performed By: #### 5 8410-2 #### CRYSTAL JURADO ([id number]) [facility] ([facility]) [address] [place] [address] 16195 MCV (RBC) [Entitic vol] 88 fL Normal 80-100 [facility] Comment on above: Performed By: #### 5 8410-2 #### CRYSTAL JURADO ([id number]) [facility] ([facility]) [address] [place] [address] 32558 Nucleated RBC/100 WBC (Bld) [Ratio] 0.0 /100 WBCs Normal 0.0-0.0 [facility] Comment on above: Performed By: #### 5 8410-2 #### CRYSTAL JURADO ([id number]) [facility] ([facility]) [address] [place] [address] 50805 Platelets (Bld) [#/Vol] 185 x10*3/uL Normal 150-450 [facility] Comment on above: Performed By: #### 5 8410-2 #### CRYSTAL JURADO ([id number]) [facility] ([facility]) [address] [place] [address] 45685 RBC (Bld) [#/Vol] 4.39 x10*6/uL Low 4.50-5.90 [facility] Comment on above: Performed By: #### 5 8410-2 #### CRYSTAL JURADO ([id number]) [facility] ([facility]) [address] [place] [address] 60032 WBC (Bld) [#/Vol] 7.3 x10*3/uL Normal 4.4-11.3 [facility] Comment on above: Performed By: #### 5 8410-2 #### CRYSTAL JURADO ([id number]) [facility] ([facility]) [address] [place] [address] 47008 ECG 12-LEADon 03-04-2024 ECG 12-LEAD Ventricular Rate 73 Atrial Rate 71 QRS Duration 142 Q-T Interval 588 QTC Calculation(Bazett) 647 R Gardiner -27 T Gardiner 76 QRS Count 12 Q Onset 225 T Offset 519 QTC Fredericia 628 Diagnosis Atrial-paced rhythm Right bundle branch block 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) T wave abnormality, consider lateral ischemia Abnormal ECG When compared with ECG of 30-APR-2014 08:20, Right bundle branch block is now Present Confirmed by Abraham Lewis ([id number]) on 03/05/2024 11:49:54 AM Normal [facility] PT and aPTT panel Coag (PPP) on 03-04-2024 aPTT Coag (PPP) [Time] 42 s High [facility] INR Coag (PPP) [Relative time] 2.3 {INR} High 0.9 - 1.1 [facility] Interpretation and review of laboratory results Abnormal [facility] PT Coag (PPP) [Time] 26.7 s High [facility] The APTT is no longe r used for monitoring Unfractionated Heparin Therapy. For monitoring Heparin Therapy, use the Heparin Assay. [facility] aPTT Coag (PPP) [Time] 42 s High 27-38 [facility] Comment on above: Order Comment: The A PTT is no longer used for monitoring Unfractionated Heparin Therapy. For monitoring Heparin Therapy, use the Heparin Assay. Performed By: #### 3 4529-8 #### CRYSTAL JURADO ([id number]) [facility] ([facility]) [address] [place] [address] 36167 INR Coag (PPP) [Relative time] 2.3 High 0.9-1.1 [facility] Comment on above: Order Comment: The A PTT is no longer used for monitoring Unfractionated Heparin Therapy. For monitoring Heparin Therapy, use the Heparin Assay. Performed By: #### 3 4529-8 #### CRYSTAL JURADO ([id number]) [facility] ([facility]) [address] [place] [address] 56801 PT Coag (PPP) [Time] 26.7 s High 9.8-12.8 [facility] Comment on above: Order Comment: The A PTT is no longer used for monitoring Unfractionated Heparin Therapy. For monitoring Heparin Therapy, use the Heparin Assay. Performed By: #### 3 4529-8 #### CRYSTAL JURADO ([id number]) [facility] ([facility]) [address] [place] [address] 96318 Blood type and Indirect anti body screen panel (Bld)on 02-26-2024 ABO group Nom (Bld) O [facility] Blood group antibody screen Ql Negative [facility] D Ag Ql (Bld) Positive [facility] Comment on above: 2nd ABO test require d. Order and Collect VERAB [facility] ABO group Nom (Bld) O Normal [facility] Comment on above: Order Comment: Speci men for compatibility testing requires full first and last name, MRN, , date, time of collection, and print production manager/coin box collector's signature on tube(s) or it will be rejected. Please collect 1 lavender top-KEDTA OR 1 pink top-KEDTA and sign, date and time with the patient's full first and last name, MRN and . Performed By: #### 3 4532-2 #### CRYSTAL JURADO ([id number]) [facility] [address] [place] [address] Blood group antibody screen Ql Negative [facility] Comment on above: Order Comment: Speci men for compatibility testing requires full first and last name, MRN, , date, time of collection, and print production manager/coin box collector's signature on tube(s) or it will be rejected. Please collect 1 lavender top-KEDTA OR 1 pink top-KEDTA and sign, date and time with the patient's full first and last name, MRN and . Performed By: #### 3 4532-2 #### CRYSTAL JURADO ([id number]) [facility] ([facility]) [address] [place] [address] D Ag Ql (Bld) Positive [facility] Comment on above: Order Comment: Speci men for compatibility testing requires full first and last name, MRN, , date, time of collection, and print production manager/coin box collector's signature on tube(s) or it will be rejected. Please collect 1 lavender top-KEDTA OR 1 pink top-KEDTA and sign, date and time with the patient's full first and last name, MRN and . Result Comment: 2nd ABO test required. Order and Collect VERAB Performed By: #### 3 4532-2 #### CRYSTAL JURADO ([id number]) [facility] ([facility]) [address] [place] [address] ECG 12 Leadon 02-26-2024 Atrial paced, ventricular sensed rhythm, right bundle branch block, left anterior fascicular block, HR 75bpm [facility] Work Phone: COMPREHENSIVE METABOLIC PANE Donato 08-06-2023 Albumin [Mass/Vol] 4.2 g/dL Normal 3.2-5.3 [facility] Comment on above: Performed By: #### Gorge DELANEY, 89025-6, 3016-3 #### [facility] LAB ([id number]) [address], [address] [place] [address] ALP [Catalytic activity/Vol] 77 U/L Normal 39-130 [facility] Comment on above: Performed By: #### Gorge DELANEY, 54557-5, 6-3 #### [facility] ([id number]) [address], [address] [place] [address] ALT [Catalytic activity/Vol] 11 U/L Normal 0-40 [facility] Comment on above: Performed By: #### Gorge DELANEY, 79689-4, 3016-3 #### [facility] ([id number]) [address], [address] [place] [address] Anion gap [Moles/Vol] 8 mmol/L Normal 5-15 [facility] Comment on above: Performed By: #### Gorge DELANEY, 09459-2, 3016-3 #### [facility] ([id number]) [address], [address] [place] [address] AST [Catalytic activity/Vol] 19 U/L Normal 0-41 [facility] Comment on above: Performed By: #### Gorge DELANEY, 50226-2, 3016-3 #### [facility] ([id number]) [address], [address] [place] [address] Bilirubin [Mass/Vol] 0.5 mg/dL Normal 0.3-1.2 [facility] Comment on above: Performed By: #### Gorge DELANEY, 14671-4, 6-3 #### [facility] ([id number]) [address], [facility] [address] [place] [address] Calcium [Mass/Vol] 9.1 mg/dL Normal 8.5-10.5 [facility] Comment on above: Performed By: #### Gorge DELANEY, 85528-3, 3015-3 #### [facility] ([id number]) [address] [address] Chloride [Moles/Vol] 106 mmol/L Normal 98-109 [facility] Comment on above: Performed By: #### Gorge DELANEY, 10458-1, 3015-3 #### [facility] ([id number]) [address], [address] [address] CO2 [Moles/Vol] 26 mmol/L Normal 22-32 [facility] Comment on above: Performed By: #### Gorge DELANEY, 86689-2, 3015-3 #### [facility] ([id number]) [address], [address] [address] Creatinine [Mass/Vol] 2.12 mg/dL High 0.60-1.30 [facility] Comment on above: Result Comment: METH OD TRACEABLE TO IDMS STANDARD Performed By: #### Gorge DELANEY, 43062-2, 6-3 #### [facility] ([id number]) [address] [address] GFR/1.73 sq M.predicted among non-blacks MDRD (S/P/Bld) [Vol rate/Area] 29 mL/min/{1.73_m2} Low >59 [facility] Comment on above: Result Comment: Reported eGFR is based on the CKD-EPI 2020 equation that does not use a race coefficient. Performed By: #### Gorge DELANEY, 70354-8, 3015-3 #### [facility] ([id number]) [address], [address] [place] [address] Glucose [Mass/Vol] 113 mg/dL High 65-99 [facility] Comment on above: Performed By: #### Gorge DELANEY, 88385-7, 3015-3 #### [facility] ([id number]) [address], [address] [place] [address] Potassium [Moles/Vol] 4.8 mmol/L Normal 3.5-5.0 [facility] Comment on above: Performed By: #### Gorge DLEANEY, 78692-4, 3015-3 #### [facility] ([id number]) [address], [address] [place] [address] Protein [Mass/Vol] 7.0 g/dL Normal 6.0-8.0 [facility] Comment on above: Performed By: #### Gorge DELANEY, 00931-9, 3015-3 #### [facility] ([id number]) [address], [address] [place] [address] Sodium [Moles/Vol] 140 mmol/L Normal 134-146 [facility] Comment on above: Performed By: #### Gorge DELANEY, 09169-8, 3015-3 #### [facility] ([id number]) [address], [address] [place] [address] Urea nitrogen [Mass/Vol] 24 mg/dL Normal 5-27 [facility] Comment on above: Performed By: #### Gorge DELANEY, 29060-9, 3015-3 #### [facility] ([id number]) [address], [address] [place] [address] Comprehensive metabolic pane donato 08-06-2023 Albumin [Mass/Vol] 4.2 g/dL 3.2 - 5.3 g/dL [facility] ALP [Catalytic activity/Vol] 77 U/L 39 - 130 U/L [facility] ALT No additional P-5'-P [Catalytic activity/Vol] 11 U/L 0 - 40 U/L [facility] Anion gap [Moles/Vol] 8 mmol/L 5 - 15 mmol/L [facility] AST [Catalytic activity/Vol] 19 U/L 0 - 41 U/L [facility] Bilirubin [Mass/Vol] 0.5 mg/dL 0.3 - 1.2 mg/dL [facility] Calcium [Mass/Vol] 9.1 mg/dL 8.5 - 10. 5 mg/dL [facility] Chloride [Moles/Vol] 106 mmol/L 98 - 109 mmol/L [facility] CO2 [Moles/Vol] 26 mmol/L 22 - 32 mmol/L [facility] Creatinine [Mass/Vol] 2.12 mg/dL High 0.60 - 1.30 mg/dL [facility] Comment on above: METHOD TRACEABLE TO [facility] STANDARD eGFR (CKD-EPI)non-race dependent 29 Low - PINF [facility] Comment on above: Reported eGFR is based on the CKD-EPI 2020 equation that does not use a race coefficient. Glucose [Mass/Vol] 113 mg/dL High 65 - 99 mg/dL [facility] Potassium [Moles/Vol] 4.8 mmol/L 3.5 - 5.0 mmol/L [facility] Protein [Mass/Vol] 7.0 g/dL 6.0 - 8.0 g/dL [facility] Sodium [Moles/Vol] 140 mmol/L 134 - 146 mmol/L [facility] Urea nitrogen [Mass/Vol] 24 mg/dL 5 - 27 mg/dL [facility] HGB A1C (GLYCO-HGB)on 2023 Glucose [Mass/Vol] 140 mg/dL Normal [facility] Comment on above: Performed By: #### C , 63826-7, 3016-3 #### [facility] ([id number]) [address] [place] [address], [address] [place] [address] HbA1c (Bld) [Mass fraction] 6.5 % High 4.4-5.6 [facility] Comment on above: Result Comment: NOTE ADA Guidelines Result HgbA1c Normal : less than 5.7 % Prediabetes : 5.7 % to 6.4 % Diabetes : > 6.4 % Use with caution in patients with abnormal hemoglobin variants as the half-life of red blood cells and in vivo glycation rates are affected. Performed By: #### C , 34273-5, 3016-3 #### [facility] ([id number]) [address] [place] [address], [address] [place] [address] Hemoglobin A1con 08-06-2023 Average glucose Estimated from glycated hemoglobin (Bld) [Mass/Vol] 140 mg/dL [facility] HbA1c (Bld) [Mass fraction] 6.5 % High 4.4 - 5.6 % [facility] Comment on above: NOTE ADA Guidelines Result HgbA1c Normal : less than 5.7 % Prediabetes : 5.7 % to 6.4 % Diabetes : > 6.4 % Use with caution in patients with abnormal hemoglobin variants as the half-life of red blood cells and in vivo glycation rates are affected. Interpretation and review of laboratory results Abnormal [facility] Lipid 1996 panelon Cholesterol [Mass/Vol] 91 mg/dL Low 150 - 200 mg/dL [facility] Cholesterol in HDL [Mass/Vol] 39 mg/dL Low 39 - PINF mg/dL [facility] Comment on above: HDL <40 mg/dL - High Risk HDL > or = 40mg/dL- Desirable HDL >60 mg/dL - Negative Risk Cholesterol in LDL [Mass/Vol] 18 mg/dL NINF - 130 mg/dL [facility] Comment on above: LDL <100 mg/dL - Desirable LDL >160 mg/dL - High Risk Cholesterol in VLDL [Mass/Vol] 34 mg/dL High 0 - 30 mg/dL [facility] Cholesterol.total/C holesterol in HDL [Mass ratio] 2.3 {ratio} 1.0 - 5.0 [facility] Triglyceride [Mass/Vol] 168 mg/dL High 27 - 150 mg/dL [facility] Cholesterol [Mass/Vol] 91 mg/dL Low 150-200 [facility] Comment on above: Performed By: ###[place], [address]-2, 3016-3 #### [facility] ([id number]) [address], [facility] [address] [place] [address] Cholesterol in HDL [Mass/Vol] 39 mg/dL Low >39 [facility] Comment on above: Result Comment: HDL <40 mg/dL - High Risk HDL > or = 40mg/dL- Desirable HDL >60 mg/dL - Negative Risk Performed By: ##[place], [address]-5, 3016-3 #### [facility] ([id number]) [address], [address] [place] [address] Cholesterol in LDL [Mass/Vol] 18 mg/dL Normal <130 [facility] Comment on above: Result Comment: LDL <100 mg/dL - Desirable LDL >160 mg/dL - High Risk Performed By: ###[place], [address]-9, 3016-3 #### [facility] ([id number]) [address], [address] [place] [address] Cholesterol in VLDL [Mass/Vol] 34 mg/dL High 0-30 [facility] Comment on above: Performed By: #### Gorge DELANEY, 13003-7, 3016-3 #### [facility] ([id number]) [address] [facility], [address] [address] CHOLESTEROL:HDL 2.3 Normal 1.0-5.0 [facility] Comment on above: Performed By: #### Gorge DELANEY, 33454-5, 6-3 #### [facility] ([id number]) [address] [address] Triglyceride [Mass/Vol] 168 mg/dL High 27-150 [facility] Comment on above: Performed By: #### Gorge DELANEY, 56681-8, 3016-3 #### [facility] ([id number]) [address] [facility], [address] [address] No Panel Informationon 08-05 Interpretation and review of laboratory results Abnormal [facility] TSHon 08-06-2023 TSH Qn 3.12 m[IU]/L [facility] TSH Qnon 08-06-2023 [facility] TSH 3.12 uIU/mL Normal 0.49-4.67 [facility] Comment on above: Performed By: #### Gorge DELANEY, 54017-9, 3016-3 #### [facility] ([id number]) [address] [facility], [address] [address] Protime & INRon 07-18-2023 External Inr 2.02 [facility] External Protime 20.6 [facility] Office Visit (Cardiology)on 01-12-2023 Follow-up visit [...] a smoker Tobacco Use Screening; Status:Complete; Done: [id number] Ventricular tachycardia IO EKG Electrocardiogram- 12 Lead; Status:Complete; Done: [id number] Patient Instructions Please bring all medicines, vitamins, [...] negative for complaint. Vitals Vital Signs Recorded: [id number] 02:17PM Heart Rate72, Apical Hsylpjvv627, RUE, Sitting Pqxthpqto56, RUE, Sitting Height5 ft 9 in Ykgeng010 lb BMI Xedutytixs18.78 kg/m2 BSA Calculated1.88 Tobacco Useb) No Falls [...] Jan 13 2023 2:45PM EST (Author) Normal [place] Tobacco Screening.on 023 Fall risk assessment a) No falls within the last year [facility] 250 DO Work Phone: Tobacco use status CP b) No [facility] 250 DO Work Phone: PROTIMEon 10-17-2022 INR Coag (PPP) [Relative time] 2.38 {INR} Normal [facility] Comment on above: Performed By: #### P T #### [facility] [address] [place] [address] Dr. Sariah Boyle INR GUIDELINES SEE BELOW Normal [facility] Comment on above: Result Comment: NHUNG RED INR: 2.0 - 3.0 CONDITIONS NOT LISTED BELOW 2.5 - 3.5 FOR PROSTHETIC HEART VALVE REPLACEMENT 2.5 - 3.5 RECURRENT THROMBOSIS Performed By: #### P T #### [facility] [address] [place] [address] Dr. Sariah Boyle PT Coag (PPP) [Time] 24.0 s Critically high 9.0-11.6 [facility] Comment on above: Performed By: #### P T #### [facility] [address] [place] [address] Dr. Sariah Boyle PROTIMEon 09-15-2022 INR Coag (PPP) [Relative time] 2.18 {INR} Normal [facility] Comment on above: Performed By: #### P T #### [facility] [address] [place] [address] Dr. Sariah Boyle INR GUIDELINES SEE BELOW Normal [facility] Comment on above: Result Comment: NHUNG RED INR: 2.0 - 3.0 CONDITIONS NOT LISTED BELOW 2.5 - 3.5 FOR PROSTHETIC HEART VALVE REPLACEMENT 2.5 - 3.5 RECURRENT THROMBOSIS Performed By: #### P T #### [facility] [address] [place] [address] Dr. Sariah Boyle PT Coag (PPP) [Time] 22.1 s Critically high 9.0-11.6 [facility] Comment on above: Performed By: #### P T #### [facility] [address] [place] [address] Dr. Sariah Boyle PROTIMEon 08-15-2022 INR Coag (PPP) [Relative time] 2.44 {INR} Normal [facility] Comment on above: Performed By: #### P T #### [facility] [address] [place] [address] Dr. Sariah Boyle INR GUIDELINES SEE BELOW Normal [facility] Comment on above: Result Comment: NHUNG RED INR: 2.0 - 3.0 CONDITIONS NOT LISTED BELOW 2.5 - 3.5 FOR PROSTHETIC HEART VALVE REPLACEMENT 2.5 - 3.5 RECURRENT THROMBOSIS Performed By: #### P T #### [facility] [address] [place] [address] Dr. Sariah Boyle PT Coag (PPP) [Time] 24.6 s Critically high 9.0-11.6 [facility] Comment on above: Performed By: #### P T #### [facility] [address] [place] [address] Dr. Sariah Boyle PROTIMEon 07-18-2022 INR Coag (PPP) [Relative time] 2.33 {INR} Normal [facility] Comment on above: Performed By: #### P T #### [facility] [address] [place] [address] Dr. Sariah Boyle INR GUIDELINES SEE BELOW Normal [facility] Comment on above: Result Comment: NHUNG RED INR: 2.0 - 3.0 CONDITIONS NOT LISTED BELOW 2.5 - 3.5 FOR PROSTHETIC HEART VALVE REPLACEMENT 2.5 - 3.5 RECURRENT THROMBOSIS Performed By: #### P T #### [facility] [address] [place] [address] Dr. Sariah Boyle PT Coag (PPP) [Time] 23.5 s Critically high 9.0-11.6 [facility] Comment on above: Performed By: #### P T #### [facility] [address] [place], [place] [address] Dr. Sariah Boyle Office Visit (Cardiology)on 07-14-2022 [...] negative for complaint. Vitals Vital Signs Recorded: [id number] 03:41PM Heart Rate80, L Radial Mwereckf206, LUE, Sitting Apghiaazu38, LUE, Sitting Height5 ft 9 in Qzopxn958 lb BMI Uwxelntwgk80.92 kg/m2 BSA Calculated1.89 Tobacco Useb) No PHQ-2 [...] Electronically si (more content not included)... Normal [place] Tobacco Screening.on 023 Adult depression screening assessment No [facility] 250 DO Work Phone: Fall risk assessment a) No falls within the last year [facility] Sim[employer]atic DO Work Phone: Tobacco use status CPHS b) [facility] DO Work Phone: PROTIMEon 07-04-2022 INR Coag (PPP) [Relative time] 1.91 {INR} Normal [facility] Comment on above: Performed By: #### P T #### [facility] [address] [place] [address] Dr. Sariah Boyle INR GUIDELINES SEE BELOW Normal [facility] Comment on above: Result Comment: NHUNG RED INR: 2.0 - 3.0 CONDITIONS NOT LISTED BELOW 2.5 - 3.5 FOR PROSTHETIC HEART VALVE REPLACEMENT 2.5 - 3.5 RECURRENT THROMBOSIS Performed By: #### P T #### [facility] [address] [place] [address] [address] Sariah Boyle PT Coag (PPP) [Time] 19.5 s Critically high 9.0-11.6 [facility] Comment on above: Performed By: #### P T #### [facility] [address] [place] [address] [address] Sariah Boyle No Panel Informationon 06-[address] [place] [address] DO Work Phone: PROTIMEon 06-07-2022 INR Coag (PPP) [Relative time] 1.44 {INR} Normal [facility] Comment on above: Performed By: #### P T #### [facility] [address] [place] [address] Dr. Sariah Boyle INR GUIDELINES SEE BELOW Normal [facility] Comment on above: Result Comment: NHUNG RED INR: 2.0 - 3.0 CONDITIONS NOT LISTED BELOW 2.5 - 3.5 FOR PROSTHETIC HEART VALVE REPLACEMENT 2.5 - 3.5 RECURRENT THROMBOSIS Performed By: #### P T #### [facility] [address] [place] [address] Dr. Sariah Boyle PT Coag (PPP) [Time] 15.0 s Critically high 9.0-11.6 [facility] Comment on above: Performed By: #### P T #### [facility] [address] [place] [address] Dr. Sariah Boyle No Panel Informationon 06-06 [place] [address] DO Work Phone: PROTIMEon 05-08-2022 INR Coag (PPP) [Relative time] 2.06 {INR} Normal [facility] Comment on above: Performed By: #### P T #### [facility] [address] [place] [address] Dr. Sariah Boyle INR GUIDELINES SEE BELOW Normal [facility] Comment on above: Result Comment: NHUNG RED INR: 2.0 - 3.0 CONDITIONS NOT LISTED BELOW 2.5 - 3.5 FOR PROSTHETIC HEART VALVE REPLACEMENT 2.5 - 3.5 RECURRENT THROMBOSIS Performed By: #### P T #### [facility] [address] [place] [address] Dr. Sariah Boyle PT Coag (PPP) [Time] 21.2 s Critically high 9.0-11.6 [facility] Comment on above: Performed By: #### P T #### [facility] [address] [place] [address] Dr. Sariah Boyle PROTIMEon 04-07-2022 INR Coag (PPP) [Relative time] 3.37 {INR} Normal [facility] Comment on above: Performed By: #### P T #### [facility] [address] [place], [place] [address] Dr. Sariah Boyle INR GUIDELINES SEE BELOW Normal [facility] Comment on above: Result Comment: NHUNG RED INR: 2.0 - 3.0 CONDITIONS NOT LISTED BELOW 2.5 - 3.5 FOR PROSTHETIC HEART VALVE REPLACEMENT 2.5 - 3.5 RECURRENT THROMBOSIS Performed By: #### P T #### [facility] [address] [place], [place] [address] Dr. Sariah Boyle PT Coag (PPP) [Time] 33.6 s Critically high 9.0-11.6 [facility] Comment on above: Performed By: #### P T #### [facility] [address] [place] [address] [address] 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 Kumari for management [...] Recorded: 03Apr2022 02:27PM Height5 ft 9 in Jmdgnr007 lb BMI Ywibtycnhm85.92 kg/m2 BSA Calculated1.89 Tobacco Useb) No Falls [...] Apr 19 2022 6:13AM EST (Author) Normal [place] Tobacco Screening.on 022 Fall risk assessment a) No falls within the last year [facility] Work Phone: Tobacco use status CP b) No [facility] Work Phone: No Panel Informationon 03-23 [facility]-Otolaryngol o [facility]na Work Phone: PROTIMEon 03-06-2022 INR Coag (PPP) [Relative time] 2.08 {INR} Normal [facility] Comment on above: Performed By: #### P T #### [facility] [address] [place] [address] Dr. Sariah Boyle INR GUIDELINES SEE BELOW Normal [facility] Comment on above: Result Comment: NHUNG RED INR: 2.0 - 3.0 CONDITIONS NOT LISTED BELOW 2.5 - 3.5 FOR PROSTHETIC HEART VALVE REPLACEMENT 2.5 - 3.5 RECURRENT THROMBOSIS Performed By: #### P T #### [facility] [address] [place] [address] Dr. Sariah Boyle PT Coag (PPP) [Time] 21.4 s Critically high 9.0-11.6 [facility] Comment on above: Performed By: #### P T #### [facility] [address] [place] [address] Dr. Sariah Boyle PROTIMEon 02-03-2022 INR Coag (PPP) [Relative time] 1.83 {INR} Normal [facility] Comment on above: Performed By: #### P T #### [facility] [address] [place] [address] Dr. Sariah Boyle INR GUIDELINES SEE BELOW Normal [facility] Comment on above: Result Comment: NHUNG RED INR: 2.0 - 3.0 CONDITIONS NOT LISTED BELOW 2.5 - 3.5 FOR PROSTHETIC HEART VALVE REPLACEMENT 2.5 - 3.5 RECURRENT THROMBOSIS Performed By: #### P T #### [facility] [address] [place] [address] Dr. Sariah Boyle PT Coag (PPP) [Time] 19.0 s Critically high 9.0-11.6 [facility] Comment on above: Performed By: #### P T #### [facility] [address] [place] [address] Dr. Sariah Boyle PROTIMEon 01-02-2022 INR Coag (PPP) [Relative time] 2.05 {INR} Normal [facility] Comment on above: Performed By: #### P T #### [facility] [address] [place] [address] Dr. Sariah Boyle INR GUIDELINES SEE BELOW Normal [facility] Comment on above: Result Comment: NHUNG RED INR: 2.0 - 3.0 CONDITIONS NOT LISTED BELOW 2.5 - 3.5 FOR PROSTHETIC HEART VALVE REPLACEMENT 2.5 - 3.5 RECURRENT THROMBOSIS Performed By: #### P T #### [facility] [address] [place] [address] [address] Sariah Boyle PT Coag (PPP) [Time] 21.1 s Critically high 9.0-11.6 [facility] Comment on above: Performed By: #### P T #### [facility] [address] [place] [address] Dr. Sariah Boyle Tobacco Screening.on 022 Adult depression screening assessment No [facility] 250 DO Work Phone: Fall risk assessment a) No falls within the last year [facility] 250 DO Work Phone: Tobacco use status CPHS b) No [facility] 250 DO Work Phone: PROTIMEon 12-02-2021 INR Coag (PPP) [Relative time] 2.22 {INR} Normal [facility] Comment on above: Performed By: #### P T #### [facility] [address] [place] [address] Dr. Sariah Boyle INR GUIDELINES SEE BELOW Normal [facility] Comment on above: Result Comment: NHUNG RED INR: 2.0 - 3.0 CONDITIONS NOT LISTED BELOW 2.5 - 3.5 FOR PROSTHETIC HEART VALVE REPLACEMENT 2.5 - 3.5 RECURRENT THROMBOSIS Performed By: #### P T #### [facility] [address] [place] [address] Dr. Sariah Boyle PT Coag (PPP) [Time] 22.8 s Critically high 9.0-11.6 [facility] Comment on above: Performed By: #### P T #### [facility] [address] [place] [address] [address] Sariah Boyle PROTIMEon 11-18-2021 INR Coag (PPP) [Relative time] 1.95 {INR} Normal [facility] Comment on above: Performed By: #### P T #### [facility] [address] [place] [address] Dr. Sariah Boyle INR GUIDELINES SEE BELOW Normal [facility] Comment on above: Result Comment: NHUNG RED INR: 2.0 - 3.0 CONDITIONS NOT LISTED BELOW 2.5 - 3.5 FOR PROSTHETIC HEART VALVE REPLACEMENT 2.5 - 3.5 RECURRENT THROMBOSIS Performed By: #### P T #### [facility] [address] [place] [address] [address] Sariah Boyle PT Coag (PPP) [Time] 20.2 s Critically high 9.0-11.6 [facility] Comment on above: Performed By: #### P T #### [facility] [address] [place] [address] Dr. Sariah Boyle COMPREHENSIVE METABOLIC PANE Donato 08-23-2021 Albumin [Mass/Vol] 4.1 g/dL Normal 3.6-5.1 [facility] Comment on above: Performed By: #### 1 023, 8340 #### [facility] [address] [employer] Sprayer: Jose Juan Arriola MD Albumin/Globulin [Mass ratio] 1.6 {ratio} Normal 1.0-2.5 [facility] Comment on above: Performed By: #### 1 023, 0 #### [facility] [address] [employer] Sprayer: Jose Juan Arriola MD ALP [Catalytic activity/Vol] 61 U/L Normal 35-144 [facility] Comment on above: Performed By: #### 1 023, 7600 #### [facility] [address] [employer] Sprayer: Jose Juan Arriola MD ALT [Catalytic activity/Vol] 9 U/L Normal 9-46 [facility] Comment on above: Performed By: #### 1 023, 7600 #### [facility] of [address], [address] [place] [address] [employer] Sprayer: Jose Juan Arriola MD AST [Catalytic activity/Vol] 14 U/L Normal 10-35 [facility] Comment on above: Performed By: #### 1 023, 7600 #### [facility] of [address], [address] [place] [address] [employer] Sprayer: Jose Juan Arriola MD Bilirubin [Mass/Vol] 0.6 mg/dL Normal 0.2-1.2 [facility] Comment on above: Performed By: #### 1 023, 7600 #### [facility] [place] [address] [employer] Sprayer: Jose Juan Arriola MD Calcium [Mass/Vol] 9.1 mg/dL Normal 8.6-10.3 [facility] Comment on above: Performed By: #### 1 023, 7600 #### [facility] of [place] [address] [employer]: Jose Juan Arriola MD Chloride [Moles/Vol] 109 mmol/L Normal 98-110 [facility] Comment on above: Performed By: #### 1 023, 7600 #### [facility] [place] [address] [employer]: Jose Juan Arriola MD CO2 [Moles/Vol] 26 mmol/L Normal 20-32 [facility] Comment on above: Performed By: #### 1 023, 7600 #### [facility] [place] [address] [employer]: Jose Juan Arriola MD Creatinine [Mass/Vol] 2.15 mg/dL High 0.70-1.11 [facility] Comment on above: Result Comment: For patients >49 years of age, the reference limit for Creatinine is approximately 13% higher for people identified as -Tuvaluan. Performed By: #### 1 0231, 7600 #### [facility] of [address], [address] [place] [address] [employer]: Jose Juan Arriola MD eGFR NON-AFR. MALDIVIAN 27 mL/min/1.73m2 Low > OR = 60 [facility] Comment on above: Performed By: #### 1 0231, 7600 #### [facility] of [address], [address] [place] [address] [employer]: Jose Juan Arriola MD GFR/1.73 sq M.predicted among blacks MDRD (S/P/Bld) [Vol rate/Area] 31 mL/min/{1.73_m2} Low > OR = 60 [facility] Comment on above: Performed By: #### 1 0231, 7600 #### [facility] of [address], [address] [place] [address] [employer]: Jose Juan Arriola MD Globulin (S) [Mass/Vol] 2.5 g/dL Normal 1.9-3.7 [facility] Comment on above: Performed By: #### 1 023, 7600 #### [facility] of [address], [address] [place] [address] [employer]: Jose Juan Arriola MD Glucose [Mass/Vol] 93 mg/dL Normal 65-99 [facility] Comment on above: Result Comment: Fasting reference interval Performed By: #### 1 023, 7600 #### [facility] [place] [address] [employer]: Jose Juan Arriola MD Potassium [Moles/Vol] 4.7 mmol/L Normal 3.5-5.3 [facility] Comment on above: Performed By: #### 1 0231, 7600 #### [facility] [place] [address] [employer]: Jose Juan Arriola MD Protein [Mass/Vol] 6.6 g/dL Normal 6.1-8.1 [facility] Comment on above: Performed By: #### 1 0231, 7600 #### [facility] of [address] [place] [address] [employer]: Jose Juan rAriola MD Sodium [Moles/Vol] 142 mmol/L Normal 135-146 [facility] Comment on above: Performed By: #### 1 0231, 7600 #### [facility] of [address], [address] [place] [address] [employer]: Jose Juan Arriola MD Urea nitrogen [Mass/Vol] 31 mg/dL High 7- [facility] Comment on above: Performed By: #### 1 0231, 7600 #### [facility] of [address], [address] [place] [address] [employer]: Jose Juan Arriola MD Urea nitrogen/Creatinine [Mass ratio] 14 mg/mg Normal 6- [facility] Comment on above: Performed By: #### 1 023, 7600 #### [facility] [address], [address] [place] [address] [employer]: Jose Juan Arriola MD LIPID PANEL, [facility] 0 Cholesterol [Mass/Vol] 101 mg/dL Normal <200 [facility] Comment on above: Order Comment: FASTI NG:YES FASTING: YES Performed By: #### 1 0231, 7600 #### [facility] of [address], [address] [place] [address] [employer]: Jose Juan Arriola MD Cholesterol in HDL [Mass/Vol] 40 mg/dL Normal > OR = 40 [facility] Comment on above: Order Comment: FASTI NG:YES FASTING: YES Performed By: #### 1 0231, 7600 #### [facility] of [address], [address] [place] [address] [employer]: Jose Juan Arriola MD Cholesterol in LDL [...] LDL-C. Phillip SS et al. MERYL. 2013;310(19): 8557-6200 (http://education.[employer]/faq/RGU493) Performed By: #### 1 0231, 7600 #### [facility] [address], [address] [place] [address] [employer]: Jose Juan Arriola MD Cholesterol.total/C holesterol in HDL [Mass ratio] 2.5 {ratio} Normal <5.0 [facility] Comment on above: Order Comment: FASTI NG:YES FASTING: YES Performed By: #### 1 0231, 7600 #### [facility] [address], [address] [place] [address] [employer]: Jose Juan Arriola MD NON HDL CHOLESTEROL 61 mg/dL (calc) Normal <130 [facility] Comment on above: Order Comment: FASTI NG:YES FASTING: YES Result Comment: For patients with diabetes plus 1 major ASCVD risk factor, treating to a non-HDL-C goal of <100 mg/dL (LDL-C of <70 mg/dL) is considered a therapeutic option. Performed By: #### 1 0231, 7600 #### [facility] [address], [address] [place] [address] [employer]: Jose Juan Arriola MD Triglyceride [Mass/Vol] 127 mg/dL Normal <150 [facility] Comment on above: Order Comment: FASTI NG:YES FASTING: YES Performed By: #### 1 0231, 7600 #### [facility] [address], [address] [place] [address] [employer]: Jose Juan Arriola MD Tobacco Screening.on 021 Fall risk assessment a) No falls within the last year [facility] [facility] DO Work Phone: Tobacco use status CP b) No -[facility] [facility] DO Work Phone: B TYPE NATRIURETIC PEPTIDE ( BNP)on 11-03-2020 B TYPE NATRIURETIC PEPTIDE (BNP) Normal [facility] Comment on above: Result Comment: FROZ EN EDTA PLASMA IS REQUIRED TEST NOT PERFORMED No suitable specimen received. Please review the test requirements at [email or web address] Performed By: #### 9 05, 73586, 61761, 6399, 718, 899, 622, 29754, 96613 #### [facility] [place] [address] [employer]ayer: Jose Juan Arriola MD CBC (INCLUDES DIFF/PLT)on Basophils (Bld) [#/Vol] 0.071 10*3/uL Normal 0-200 [facility] Comment on above: Performed By: #### 9 05, 88691, 74430, 6399, 718, 899, 622, 07612, 50448 #### [facility] [place] [address] [employer]: Jose Juan Arriola MD Basophils/100 WBC (Bld) 1.0 % Normal [facility] Comment on above: Performed By: #### 9 05, 47855, 34711, 6399, 718, 899, 622, 51674, 33388 #### [facility] [place] [address] [employer]: Jose Juan Arriola MD Eosinophils (Bld) [#/Vol] 0.099 10*3/uL Normal 15-500 [facility] Comment on above: Performed By: #### 9 05, 54401, 29038, 6399, 718, 899, 622, 50985, 77643 #### [facility] [place] [address] [employer]ayer: Jose Juan Arriola MD Eosinophils/100 WBC (Bld) 1.4 % Normal [facility] Comment on above: Performed By: #### 9 05, 42726, 46768, 6399, 718, 899, 622, 40124, 80311 #### [facility] [address] [place] [address] [employer]: Jose Juan Arriola MD Erythrocyte distribution width (RBC) [Ratio] 14.4 % Normal 11.0-15.0 [facility] Comment on above: Performed By: #### 9 05, 45117, 87489, 6399, 718, 899, 622, 54937, 79385 #### [facility] of [place] [address] [employer]: Jose Juan Arriola MD Hematocrit (Bld) [Volume fraction] 42.7 % Normal 38.5-50.0 [facility] Comment on above: Performed By: #### 9 05, 24587, 89645, 6399, 718, 899, 622, 15464, 47960 #### [facility] of [place] [address] [employer]: Jose Juan Arriola MD Hemoglobin (Bld) [Mass/Vol] 13.7 g/dL Normal 13.2-17.1 [facility] Comment on above: Performed By: #### 9 05, 84559, 98954, 6399, 718, 899, 622, 31418, 56693 #### [facility] of [place] [address] [employer]: Jose Juan Arriola MD Lymphocytes (Bld) [#/Vol] 1.512 10*3/uL Normal 850-3900 [facility] Comment on above: Performed By: #### 9 05, 41197, 74169, 6399, 718, 899, 622, 96505, 89219 #### [facility] of [address] [place] [address] [employer]ayer: Jose Juan Arriola MD Lymphocytes/100 WBC (Bld) 21.3 % Normal [facility] Comment on above: Performed By: #### 9 05, 52296, 14262, 6399, 718, 899, 622, 08948, 27016 #### [facility] of [place] [address] [employer]ayer: Jose Juan Arriola MD MCH (RBC) [Entitic mass] 28.5 pg Normal 27.0-33.0 [facility] Comment on above: Performed By: #### 9 05, 31845, 98145, 6399, 718, 899, 622, 59928, 96334 #### [facility] [place] [address] [employer]: Jose Juan Arriola MD MCHC (RBC) [Mass/Vol] 32.1 g/dL Normal 32.0-36.0 [facility] Comment on above: Performed By: #### 9 05, 77891, 98210, 6399, 718, 899, 622, 75531, 31757 #### [facility] [place] [address] [employer]: Jose Juan Arriola MD MCV (RBC) [Entitic vol] 89.0 fL Normal 80.0-100.0 [facility] Comment on above: Performed By: #### 9 05, 63598, 19043, 6399, 718, 899, 622, 68799, 53130 #### [facility] [place] [address] [employer]ayer: Jose Juan Arriola MD Monocytes (Bld) [#/Vol] 0.738 10*3/uL Normal 200-950 [facility] Comment on above: Performed By: #### 9 05, 73195, 65233, 6399, 718, 899, 622, 96290, 89506 #### [facility] [place] [address] [employer]ayer: Jose Juan Arriola MD Monocytes/100 WBC (Bld) 10.4 % Normal [facility] Comment on above: Performed By: #### 9 05, 13314, 70620, 6399, 718, 899, 622, 39641, 25040 #### [facility] [place] [address] [employer]ayer: Jose Juan Arriola MD Neutrophils (Bld) [#/Vol] 4.679 10*3/uL Normal 4622-0806 [facility] Comment on above: Performed By: #### 9 05, 65447, 94177, 6399, 718, 899, 622, 10870, 01766 #### [facility] of [address], [address] [place] [address] [employer] Sprayer: Jose Juan Arriola MD Neutrophils/100 WBC (Bld) 65.9 % Normal [facility] Comment on above: Performed By: #### 9 05, 20978, 68466, 6399, 718, 899, 622, 34066, 89235 #### [facility] [place] [address] [employer]ayer: Jose Juan Arriola MD Platelet mean volume (Bld) [Entitic vol] 11.4 fL Normal 7.5-12.5 [facility] Comment on above: Performed By: #### 9 05, 19087, 56771, 6399, 718, 899, 622, 55700, 10035 #### [facility] [place] [address] [employer]ayer: Jose Juan Arriola MD Platelets (Bld) [#/Vol] 229 10*3/uL Normal 140-400 [facility] Comment on above: Performed By: #### 9 05, 81090, 47361, 6399, 718, 899, 622, 98960, 68690 #### [facility] [place] [address] [employer]ayer: Jose Juan Arriola MD RBC (Bld) [#/Vol] 4.80 10*6/uL Normal 4.20-5.80 [facility] Comment on above: Performed By: #### 9 05, 91693, 48626, 6399, 718, 899, 622, 29959, 21042 #### [facility] [place] [address] [employer]ayer: Jose Juan Arriola MD WBC (Bld) [#/Vol] 7.1 10*3/uL Normal 3.8-10.8 [facility] Comment on above: Performed By: #### 9 05, 16593, 36317, 6399, 718, 899, 622, 83029, 66868 #### [facility] [place] [address] [employer] Sprayer: Jose Juan Arriola MD [facility] 11-03-2020 Albumin [Mass/Vol] 4.1 g/dL Normal 3.6-5.1 [facility] Comment on above: Performed By: #### 9 05, 25700, 81536, 6399, 718, 899, 622, 98464, 03882 #### [facility] [place] [address] [employer] Sprayer: Jose Juan Arriola MD Albumin/Globulin [Mass ratio] 1.7 {ratio} Normal 1.0-2.5 [facility] Comment on above: Performed By: #### 9 05, 16923, 28554, 6399, 718, 899, 622, 26333, 22620 #### [facility] [place] [address] [employer] Sprayer: Jose Juan Arriola MD ALP [Catalytic activity/Vol] 62 U/L Normal 35-144 [facility] Comment on above: Performed By: #### 9 05, 89614, 86144, 6399, 718, 899, 622, 22081, 50885 #### [facility] [place] [address] [employer] Sprayer: Jose Juan Arriola MD ALT [Catalytic activity/Vol] 9 U/L Normal 9-46 [facility] Comment on above: Performed By: #### 9 05, 80933, 09481, 6399, 718, 899, 622, 33872, 44970 #### [facility] [place] [address] [employer]ayer: Jose Juan Arriola MD AST [Catalytic activity/Vol] 13 U/L Normal 10-35 [facility] Comment on above: Performed By: #### 9 05, 38719, 95952, 6399, 718, 899, 622, 86780, 83699 #### [facility] [place] [address] [employer] Sprayer: Jose Juan Arriola MD Bilirubin [Mass/Vol] 0.7 mg/dL Normal 0.2-1.2 [facility] Comment on above: Performed By: #### 9 05, 94971, 51924, 6399, 718, 899, 622, 21714, 60529 #### [facility] [place] [address] [employer] Sprayer: Jose Juan Arriola MD Calcium [Mass/Vol] 9.5 mg/dL Normal 8.6-10.3 [facility] Comment on above: Performed By: #### 9 05, 01354, 75568, 6399, 718, 899, 622, 60054, 00929 #### [facility] [place] [address] [employer] Sprayer: Jose Juan Arriola MD Chloride [Moles/Vol] 109 mmol/L Normal 98-110 [facility] Comment on above: Performed By: #### 9 05, 36948, 52562, 6399, 718, 899, 622, 31530, 64232 #### [facility] [place] [address] [employer] Sprayer: Jose Juan Arriola MD CO2 [Moles/Vol] 25 mmol/L Normal 20-32 [facility] Comment on above: Performed By: #### 9 05, 05490, 22445, 6399, 718, 899, 622, 66085, 63514 #### [facility] [place] [address] [employer] Sprayer: Jose Juan Arriola MD Creatinine [Mass/Vol] 1.99 mg/dL High 0.70-1.11 [facility] Comment on above: Result Comment: For patients >49 years of age, the reference limit for Creatinine is approximately 13% higher for people identified as -Tuvaluan. Performed By: #### 9 05, 65309, 84605, 6399, 718, 899, 622, 16501, 98795 #### [facility] [place] [address] [employer] Sprayer: Jose Juan Arriola MD eGFR NON-AFR. MALDIVIAN 30 mL/min/1.73m2 Low > OR = 60 [facility] Comment on above: Performed By: #### 9 05, 85641, 53325, 6399, 718, 899, 622, 91844, 07991 #### [facility] [place] [address] [employer] Sprayer: Jose Juan Arriola MD GFR/1.73 sq M.predicted among blacks MDRD (S/P/Bld) [Vol rate/Area] 34 mL/min/{1.73_m2} Low > OR = 60 [facility] Comment on above: Performed By: #### 9 05, 98413, 81799, 6399, 718, 899, 622, 32730, 94671 #### [facility] [place] [address] Por[employer] Sprayer: Jose Juan Arriola MD Globulin (S) [Mass/Vol] 2.4 g/dL Normal 1.9-3.7 [facility] Comment on above: Performed By: #### 9 05, 59837, 98864, 6399, 718, 899, 622, 99975, 98661 #### [facility] [place] [address] [employer] Sprayer: Jose Juan Arriola MD Glucose [Mass/Vol] 144 mg/dL High 65-99 [facility] Comment on above: Result Comment: Fasting reference interval For someone without known diabetes, a glucose value >125 mg/dL indicates that they may have diabetes and this should be confirmed with a follow-up test. Performed By: #### 9 05, 33288, 57537, 6399, 718, 899, 622, 75741, 61037 #### [facility] [address] [place] [address] [employer] Sprayer: Jose Juan Arriola MD Potassium [Moles/Vol] 4.9 mmol/L Normal 3.5-5.3 [facility] Comment on above: Performed By: #### 9 05, 09638, 08090, 6399, 718, 899, 622, 18739, 11618 #### [facility] of [place] [address] [employer] Sprayer: Jose Juan Arriola MD Protein [Mass/Vol] 6.5 g/dL Normal 6.1-8.1 [facility] Comment on above: Performed By: #### 9 05, 39358, 12395, 6399, 718, 899, 622, 03207, 97772 #### [facility] [place] [address] [employer] Sprayer: Jose Juan Arriola MD Sodium [Moles/Vol] 141 mmol/L Normal 135-146 [facility] Comment on above: Performed By: #### 9 05, 04741, 06324, 6399, 718, 899, 622, 60739, 17152 #### [facility] [place] [address] [employer] Sprayer: Jose Juan Arriola MD Urea nitrogen [Mass/Vol] 31 mg/dL High 7-25 [facility] Comment on above: Performed By: #### 9 05, 26073, 33785, 6399, 718, 899, 622, 22679, 20560 #### [facility] [place] [address] [employer] Sprayer: Jose Juan Arriola MD Urea nitrogen/Creatinine [Mass ratio] 16 mg/mg Normal 6-22 [facility] Comment on above: Performed By: #### 9 05, 83579, 89189, 6399, 718, 899, 622, 99974, 31052 #### [facility] [place] [address] [employer] Sprayer: Jose Juan Arriola MD MAGNESIUMon 11-03-2020 Magnesium [Mass/Vol] 2.1 mg/dL Normal 1.5-2.5 [facility] Comment on above: Performed By: #### 9 05, 22407, 23755, 6399, 718, 899, 622, 72174, 70336 #### [facility] [place] [address] [employer] Sprayer: Jose Juan Arriola MD PHOSPHATE ( PHOSPHORUS)on 11-03-2020 Phosphate [Mass/Vol] 2.9 mg/dL Normal 2.1-4.3 [facility] Comment on above: Performed By: #### 9 05, 07028, 82908, 6399, 718, 899, 622, 76587, 70109 #### [facility] [place] [address] [employer] Sprayer: Jose Juan Arriola MD PTH, INTACT WITHOUT [...] Normal High Performed By: #### 9 05, 35062, 52752, 6399, 718, 899, 622, 69302, 10422 #### [facility] [place] [address] [employer] Sprayer: Jose Juan Arriola MD TSHon 11-03-2020 TSH Qn 2.08 m[IU]/L Normal 0.40-4.50 [facility] Comment on above: Performed By: #### 9 05, 55459, 02646, 6399, 718, 899, 622, 11664, 70199 #### [facility] [place] [address] [employer] Sprayer: Jose Juan Arriola MD URIC ACIDon 11-03-2020 Urate [Mass/Vol] 8.5 mg/dL High 4.0-8.0 [facility] Comment on above: Result Comment: Ther apeutic target for gout patients: <6.0 mg/dL Performed By: #### 9 05, 36449, 67517, 6399, 718, 899, 622, 65624, 83609 #### [facility] [address], [address] [place] [address] [employer] Sprayer: Jose Juan Arriola MD VITAMIN D,25-OH,TOTAL,IAon 0 [...] D, (D2,D3), LC/MS/MS is recommended: order code 99263 (patients >2yrs). See Note 1 Note 1 For additional information, please refer to http://education.[employer]/faq/BQI839 (This link is being provided for informational/ educational purposes only.) Performed By: #### 1 0231, 7600 #### [facility] [address], [address] [place] [address] [employer]cel[employer] Sprayer: Jose Juan Arriola MD [facility] CARDIAC STRESS/REST INJE CTIONon 08-07-2019 [facility] CARDIAC STRESS/REST INJECTION Patient Name: DONOVAN JACOME STUDY: MYOCARDIAL PERFUSION STRESS TEST WITH LEXISCAN Performing facility: [facility], [address] [place] [address] [address] [address] [facility] Provider: Melanie Langston MD, FACC PCP: Dr. Alden Morin Supervising provider: Doron Jacobsen MD, FACC INDICATION: Arteriosclerotic cardiovascular disease Pre-operative risk assessment for Gallbladder scheduled at [facility] on TBA. HISTORY: Gender: M; Age: 83 y/o ; Height: 175.26 cm; Weight: 74.7064868 kg. High Cholesterol; CAD; HTN; ICD V. Tach., ICD Denies smoking. COMPARISON: Previous nuclear testing completed at [facility]. ACCESSION NUMBER(S): [id number]; [id number]; [id number] ORDERING CLINICIAN: AIDAN LANGSTON TECHNIQUE: ONE DAY [...] Electronically signed by: DORON JACOBSEN MD Normal [facility] Reminderson 03-14-2019 Reminders - From: Nelly DOWNING, Qing Morales To: EU - Clinical; Sent: 03/04/2019 11:29:06 EDT Show up: 03/14/2019 11:29:00 EDT Subject: Ambulatory Reminder Due Date/Time: 03/18/2019 11:29:00 EDT Reminder/Recall FISH/Cytology done 03/04/19 Negative. Normal [facility] Vital Signs Date Time Vital Sign Value Performing Clinician Facility 03-06-2024 10:36-0400 Body height 177.8 cm [employer] DO Work Phone: [facility] [employer] 03-06-2024 10:36-0400 Body mass index (BMI) [Ratio] 21.38 kg/m2 [employer] DO [email or web address] 03-06-2024 10:36-0400 Body temperature 97.5 [degF] Phil bettermarksng DO Work Phone: [email or web address] 03-06-2024 10:36-0400 Body weight 67.59 kg Phil bettermarksng DO Work Phone: [email or web address] 03-06-2024 10:36-0400 Diastolic blood pressure 60 mm[Hg] Phil Milklong DO Work Phone: [email or web address] 03-06-2024 10:36-0400 Heart rate 70 /min Phil bettermarksng DO Work Phone: [email or web address] 03-06-2024 10:36-0400 Respiratory rate 18 /min needmadeng DO Work Phone: [email or web address] 03-06-2024 10:36-0400 SaO2% (BldA) [Mass fraction] 97 % Phil bettermarksng DO Work Phone: [email or web address] 03-06-2024 10:36-0400 Systolic blood pressure 110 mm[Hg] Phil Furlong DO Work Phone: [facility] 03-04-2024 14:51-0400 SaO2% (BldA) [Mass fraction] 98 % Nicole Rose MD Work Phone: [facility] 03-04-2024 12:23-0400 Body height 180.3 cm Nicole Rose MD Work Phone: [facility] 03-04-2024 12:23-0400 Body mass index (BMI) [Ratio] 21.43 kg/m2 Nicole Rose MD Work Phone: [facility] 03-04-2024 12:23-0400 Body temperature 97.3 [degF] Nicole Rose MD Work Phone: [facility] 03-04-2024 12:23-0400 Body weight 69.7 kg Nicole Rose MD Work Phone: [facility] 03-04-2024 12:23-0400 Diastolic blood pressure 78 mm[Hg] Nicole Rose MD Work Phone: [facility] 03-04-2024 12:23-0400 Heart rate 75 /min Nicole Rose MD Work Phone: [facility] 03-04-2024 12:23-0400 Respiratory rate 16 /min Nicole Rose MD Work Phone: [facility] 03-04-2024 12:23-0400 Systolic blood pressure 159 mm[Hg] Nicole Rose MD Work Phone: [facility] 02-26-2024 09:26-0400 Body height 180.3 cm Nicole Rose MD Work Phone: [facility] 02-26-2024 09:26-0400 Body mass index (BMI) [Ratio] 21.34 kg/m2 Nicole Rose MD Work Phone: [facility] 02-26-2024 09:26-0400 Body temperature 96.91 [degF] Nicole Rose MD Work Phone: [facility] 02-26-2024 09:26-0400 Body weight 69.4 kg Nicole Rose MD Work Phone: [facility] 02-26-2024 09:26-0400 Diastolic blood pressure 79 mm[Hg] Nicole Rose MD Work Phone: [facility] 02-26-2024 09:26-0400 Heart rate 88 /min Nicole Rose MD Work Phone: [facility] 02-26-2024 09:26-0400 Respiratory rate 16 /min Nicole Rose MD Work Phone: [facility] 02-26-2024 09:26-0400 SaO2% (BldA) [Mass fraction] 98 % Nicole Rose MD Work Phone: [facility] 02-26-2024 09:26-0400 Systolic blood pressure 115 mm[Hg] Nicole Rose MD Work Phone: [facility] 11-05-2023 08:57-0400 Body height 180.3 cm Aidan Langston MD Work Phone: [facility] 11-05-2023 08:57-0400 Body mass index (BMI) [Ratio] 21.9 kg/m2 Aidan Langston MD Work Phone: [facility] 11-05-2023 08:57-0400 Body weight 71.22 kg Aidan Langston MD Work Phone: [facility] 11-05-2023 08:57-0400 Diastolic blood pressure 90 mm[Hg] Aidan Langston MD Work Phone: [facility] 11-05-2023 08:57-0400 Heart rate 82 /min Aidan Langston MD Work Phone: [facility] 11-05-2023 08:57-0400 Systolic blood pressure 130 mm[Hg] Aidan Langsotn MD Work Phone: [facility] 08-06-2023 10:10-0400 Body height 177.8 cm Phil Furlong DO Work Phone: [facility] 08-06-2023 10:10-0400 Body mass index (BMI) [Ratio] 23.69 kg/m2 Phil Furlong DO Work Phone: [facility] 08-06-2023 10:10-0400 Body temperature 97.81 [degF] Phil Furlong DO Work Phone: [facility] 08-06-2023 10:10-0400 Body weight 74.89 kg Phil Furlong DO Work [facility]: [facility] 08-06-2023 10:10-0400 Diastolic blood pressure 60 mm[Hg] Phil Furlong DO Work Phone: [email or web address] 08-06-2023 10:10-0400 Heart rate 93 /min Phil Furlong DO Work Phone: [email or web address] 08-06-2023 10:10-0400 Respiratory rate 18 /min Phil Furlong DO Work Phone: [email or web address] 08-06-2023 10:10-0400 SaO2% (BldA) [Mass fraction] 97 % Phil Furlong DO Work Phone: [email or web address] 08-06-2023 10:10-0400 Systolic blood pressure 106 mm[Hg] Phil Furlong DO [facility] Phone: [facility] 05-29-2023 16:13-0500 Body height 177.8 cm Phil Furlong DO Work Phone: [email or web address] 05-29-2023 16:13-0500 Body mass index (BMI) [Ratio] 24.12 kg/m2 Phil Reynagalong DO Work Phone: [facility] 05-29-2023 16:13-0500 Body temperature 97.81 [degF] Phil Reynagalong DO Work Phone: [facility] [employer] 05-29-2023 16:13-0500 Body weight 76.25 kg Philgirish Reynagalong DO Work Phone: [facility] 05-29-2023 16:13-0500 Diastolic blood pressure 68 mm[Hg] Phil Reynagalong DO Work Phone: [facility] [employer] 05-29-2023 16:13-0500 Heart rate 104 /min Phil Reynagalong DO Work Phone: [facility] [employer] 05-29-2023 16:13-0500 SaO2% (BldA) [Mass fraction] 99 % Phil Nicoleng DO Work Phone: [facility] [employer] 05-29-2023 16:13-0500 Systolic blood pressure 128 mm[Hg] Phil Nicoleng DO Work Phone: [facility] 01-12-2023 14:17-0400 Body height 175.26 cm Phil Reynagalong Work Phone: [facility] DO Work Phone: 01-12-2023 14:17-0400 Body mass index (BMI) [Ratio] 23.78 kg/m2 Phil Reyngaalong Work Phone: [facility] 250 DO Work Phone: 01-12-2023 14:17-0400 Body surface area Derived from formula 1.88 m2 Phil Reynagalong Work Phone: [facility] 250 DO Work Phone: 01-12-2023 14:17-0400 Body weight 73.03 kg Phil G Furlong Work Phone: [facility] 250 DO Work Phone: 01-12-2023 14:17-0400 Diastolic blood pressure 78 mm[Hg] Phil G Furlong Work Phone: [facility] 250 DO Work Phone: 01-12-2023 14:17-0400 Heart rate 72 /min Phil G Furlong Work Phone: [facility] 250 DO Work Phone: 01-12-2023 14:17-0400 Systolic blood pressure 122 mm[Hg] Phil G Furlong Work Phone: [facility] 250 DO Work Phone: 07-14-2022 15:41-0500 Body height 175.26 cm Phil G Furlong Work Phone: [facility] 250 DO Work Phone: 07-14-2022 15:41-0500 Body mass index (BMI) [Ratio] 23.92 kg/m2 Phil G Furlong Work Phone: [facility] 250 DO Work Phone: 07-14-2022 15:41-0500 Body surface area Derived from formula 1.89 m2 Phil G Furlong Work Phone: [facility] 250 DO Work Phone: 07-14-2022 15:41-0500 Body weight 73.48 kg Phil G Furlong Work Phone: [facility] 250 DO Work Phone: 07-14-2022 15:41-0500 Diastolic blood pressure 80 mm[Hg] Phil G Furlong Work Phone: [facility] [employer] 250 DO Work Phone: 07-14-2022 15:41-0500 Heart rate 80 /min Phil Nicoleng Work Phone: [facility] 250 DO Work Phone: 07-14-2022 15:41-0500 Systolic blood pressure 130 mm[Hg] Phil Reynagalong Work Phone: [facility] 250 DO Work Phone: 06-15-2022 12:40-0500 Diastolic blood pressure 78 mm[Hg] Florentino Kumari Dept. of Dermatology 06-15-2022 12:40-0500 Systolic blood pressure 167 mm[Hg] Florentino Kumari Dept. of Dermatology 06-06-2022 08:07-0500 Diastolic blood pressure 85 mm[Hg] Florentino Kumari Dept. of Dermatology 06-06-2022 08:07-0500 Systolic blood pressure 150 mm[Hg] Florentino Kumari Dept. of Dermatology 04-03-2022 14:27-0500 Body height 175.26 cm Phil Nicoleng Work Phone: [facility] Work Phone: 04-03-2022 14:27-0500 Body mass index (BMI) [Ratio] 23.92 kg/m2 Phil Reynagalong Work Phone: [facility] Work Phone: 04-03-2022 14:27-0500 Body surface area Derived from formula 1.89 m2 Phil Soliz Furlong Work Phone: [facility]pk[facility] Work Phone: 04-03-2022 14:27-0500 Body weight 73.48 kg Phil Reynagalong Work Phone: [facility]tqx[facility]Re [facility] Work Phone: 03-23-2022 09:29-0400 Diastolic blood pressure 89 mm[Hg] Karlie Craig Dept. of Dermatology 03-23-2022 09:29-0400 Systolic blood pressure 160 mm[Hg] Karlie Craig Dept. of Dermatology 03-23-2022 08:29-0400 Diastolic blood pressure 89 mm[Hg] Florentino Kumari Dept. of Dermatology 03-23-2022 08:29-0400 Systolic blood pressure 160 mm[Hg] Florentino Kumari Dept. of Dermatology 12-13-2021 08:48-0400 Body height 175.26 cm Phil Reynagalong Work Phone: [facility] [employer] 250 DO Work Phone: 12-13-2021 08:48-0400 Body mass index (BMI) [Ratio] 23.63 kg/m2 Phil Reynagalong Work Phone: [facility] [employer] 250 DO Work Phone: 12-13-2021 08:48-0400 Body surface area Derived from formula 1.88 m2 Phil Soliz Furlong Work Phone: [facility] [employer] 250 DO Work Phone: 12-13-2021 08:48-0400 Body weight 72.58 kg Phil G Furlong Work Phone: [facility] [employer] 250 DO Work Phone: 12-13-2021 08:48-0400 Diastolic blood pressure 80 mm[Hg] Phil Soliz Furlong Work Phone: [facility] [employer] 250 DO Work Phone: 12-13-2021 08:48-0400 Heart rate 80 /min Phil G Furlong Work Phone: [facility] 250 DO Work Phone: 12-13-2021 08:48-0400 Systolic blood pressure 128 mm[Hg] Phil G Furlong Work Phone: [facility] 250 DO Work Phone: 05-02-2021 08:27-0500 Body height 175.26 cm Phil G Furlong Work Phone: [facility] 250 DO Work Phone: 05-02-2021 08:27-0500 Body mass index (BMI) [Ratio] 24.37 kg/m2 Phil G Furlong Work Phone: [facility] 250 DO Work Phone: 05-02-2021 08:27-0500 Body surface area Derived from formula 1.9 m2 Phil G Furlong Work Phone: [facility] 250 DO Work Phone: 05-02-2021 08:27-0500 Body weight 74.84 kg Phil G Furlong Work Phone: [facility] 250 DO Work Phone: 05-02-2021 08:27-0500 Diastolic blood pressure 76 mm[Hg] Phil G Furlong Work Phone: [facility] 250 DO Work Phone: 05-02-2021 08:27-0500 Heart rate 81 /min Phil G Furlong Work Phone: [facility] 250 DO Work Phone: 05-02-2021 08:27-0500 Systolic blood pressure 137 mm[Hg] Phil Morin Work Phone: [facility] 250 DO Work Phone: 1935 23:00-0500 >na< Karlie Craig Dept. of Dermato logy Encounters Encounter Date Encounter Type Care Provider Facility Start: 05-29-2024 End: 05-29-2024 Orders Only Phil Morin DO Work Phone: [facility] Comment on above: Longstanding persist ent atrial fibrillation ([facility]) (Primary Dx) Start: 05-28-2024 End: 06-03-2024 Telephone encounter Kaylan Dunbar CMA [facility] Start: 03-11-2024 End: 03-11-2024 ambulatory [facility] Start: 03-10-2024 End: 03-10-2024 Orders Only Phil Morin DO Work Phone: [facility] Comment on above: Vitamin D deficiency (Primary Dx) Start: 03-06-2024 End: 03-06-2024 ambulatory [facility] Start: 03-06-2024 End: 03-06-2024 Office outpatient visit 25 minutes Phil Morin DO Work Phone: [facility] Comment on above: Hypertension 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 ([facility]) (Primary Dx); Hypertensive 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 ([facility]); Cardiomyopathy ([facility]); Stage 4 chronic kidney disease ([facility]); Type 2 diabetes mellitus without complication, without long-term current use of insulin ([facility]) Start: 03-06-2024 End: 03-06-2024 ambulatory [facility] Start: 03-04-2024 End: 03-04-2024 Subsequent hospital visit by physician Nicole Rose MD Work Phone: [facility] Comment on above: 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; Ventricular tachycardia (Multi); Ischemic cardiomyopathy Start: 02-26-2024 End: 02-26-2024 ambulatory [facility] Start: 02-05-2024 End: 02-05-2024 Patient encounter procedure DO Phil Morin Work Phone: [facility] Start: 02-05-2024 End: 02-05-2024 ambulatory DO Philgirish Reynagalong Work Phone: [facility] Work Phone: Start: 12-27-2023 End: 12-27-2023 Patient encounter procedure DO Philgirish Reynagalong Work Phone: [facility] Start: 12-27-2023 End: 12-27-2023 ambulatory DO Philgirish Reynagalong Work Phone: [facility] Work Phone: Start: 11-05-2023 End: 11-05-2023 Office outpatient visit 25 minutes Aidan Langston MD Work Phone: [facility] Comment on above: Arteriosclerotic car diovascular disease (ASCVD) (Primary Dx); Essential hypertension; Mixed hyperlipidemia; Ventricular tachycardia (Multi); ICD (implantable cardioverter-defibrillator) in place; Dilated cardiomyopathy (Multi); Ischemic cardiomyopathy Start: 11-05-2023 End: 11-05-2023 ambulatory AIDAN LANGSTON [facility] Ambulatory Start: 09-27-2023 End: 09-27-2023 Patient encounter procedure DO Phil Morin Work Phone: [facility] Start: 09-27-2023 End: 09-27-2023 ambulatory DO Phil Morin Work Phone: [facility] Work Phone: Start: 08-23-2023 Orders Only Phil pool DO Work Phone: [facility] Start: 08-09-2023 Orders Only Phil pool DO Work Phone: [facility] Comment on above: Type 2 diabetes gamaliel itus without complication, without long- term current use of insulin ([facility]) (Primary Dx); Hypertensive 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 ([facility]) Start: 08-06-2023 End: 08-06-2023 [facility] Start: 08-06-2023 End: 08-06-2023 Office outpatient visit 25 minutes Phil Morin DO Work Phone: [facility] Comment on above: Hypertensive heart a nd renal disease with (congestive) heart failure ([facility]) (Primary Dx); Hyperlipidemia, unspecified hyperlipidemia type; Stage 4 chronic kidney disease ([facility]); Type 2 diabetes mellitus without complication, without long-term current use of insulin ([facility]); Hyperparathyroidism ([facility]); Malignant melanoma of scalp or neck ([facility]); Longstanding persistent atrial fibrillation ([facility]); Paroxysmal atrial fibrillation ([facility]); Microalbuminuric diabetic nephropathy ([facility]) Start: 08-06-2023 End: 08-06-2023 ambulatory [facility] Start: 07-18-2023 Orders Only Phil pool DO Work Phone: [facility] Comment on above: Longstanding persist ent atrial fibrillation ([facility]) (Primary Dx) Start: 06-28-2023 End: 06-28-2023 Patient encounter procedure DO Philgirish Reynagalong Work Phone: [facility] Start: 06-28-2023 End: 06-28-2023 ambulatory DO Philgirish Reynagalong Work Phone: [facility] Work Phone: Start: 05-29-2023 End: 05-29-2023 Office outpatient visit 25 minutes Phil Nicoleng DO Work Phone: [facility] Comment on above: Paroxysmal atrial fi brillation ([facility]) (Primary Dx); Hypertensive 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 ([facility]); Essential hypertension; Hypothyroidism, unspecified type; Type 2 diabetes mellitus without complication, without long-term current use of insulin ([facility]); Arteriosclerotic vascular disease Start: 05-29-2023 End: 05-29-2023 ambulatory HPIL MORIN [facility] Start: 03-20-2023 End: 03-20-2023 ambulatory DO Phil Reynagalong Work Phone: [facility] Work Phone: Start: 03-20-2023 End: 03-20-2023 Patient encounter procedure DO Phil Reynagalong Work Phone: [facility] Start: 01-12-2023 Office outpatient vi sit 25 minutes Phil Reynagalong Work Phone: [facility] 250 DO Work Phone: Start: 01-12-2023 Patient encounter procedure De mindi Soliz Furlong Work Phone: [facility] 250 DO Work Phone: Start: 10-17-2022 End: 10-18-[address] JARON DAVALOS Facility:H1 Start: 09-15-2022 End: 09-16-[address] JARON DAVALOS Facility:[facility]1 Start: 08-28-2022 End: 08-28-2022 ambulatory DO Phil Reynagalong Work Phone: [facility] Work Phone: Start: 08-28-2022 End: 08-28-2022 Patient encounter procedure DO Phil Nicoleng Work Phone: [facility] Start: 08-15-2022 End: 08-16-[address] JARON DAVALOS Facility:[facility]1 Start: 07-18-2022 End: 07-19-[address] JARON DAVALOS Facility:[facility]1 Start: 07-14-2022 Office outpatient vi sit 25 minutes Phil Morin Work Phone: [facility] 250 DO Work Phone: Start: 07-04-2022 End: 07-05-[address] JARON DAVALOS Facility:[facility]1 Start: 07-03-2022 Karlie Craig Dept. of D ermatology Start: 06-16-2022 Jaimie Estevez Dept. of Dermatology Start: 06-16-2022 Telephone encounter Phil Martínez dorseydestinyyrn Work Phone: [facility] 250 DO Work Phone: Start: 06-15-2022 Florentino Kumari Dept. of Dermatology Start: 06-09-2022 Rx Renewal Phil Nicole ng [facility]: [facility] Work Phone: Start: 06-07-2022 End: 06-08-[address] PHIL MORIN Facility:[facility]1 Start: 06-07-2022 Florentino Kumari Dept. of Dermatology Start: 05-17-2022 End: 05-17-2022 ambulatory DO Phil Ronnelldestinyng Work Phone: [facility] Work Phone: Start: 05-17-2022 End: 05-17-2022 Patient encounter procedure DO Phil Ronnelllong Work Phone: [facility] Start: 05-08-2022 End: 05-09-[address] PHIL MORIN Facility:[facility]1 Start: 05-01-2022 Rx Renewal Phil Soliz Ronnelldestiny ng Work Phone: [facility] 250 DO Work Phone: Start: 04-07-2022 End: 04-08-[address] PHIL MORIN Facility:[facility]1 Start: 04-04-2022 Karlie Craig Dept. of D ermatology Start: 04-03-2022 Office outpatient ne w 45 minutes Phil Morin Work Phone: [facility] Work Phone: Start: 04-03-2022 Patient encounter procedure De joseponce Nicoleng Work Phone: [facility] Work Phone: Start: 03-23-2022 Florentino Kumari Dept. of Dermatology Start: 03-06-2022 End: 03-07-[address] PHIL MORIN Facility:[facility]1 Start: 02-28-2022 Karlie Craig Dept. of D ermatology Start: 02-15-2022 End: 02-15-2022 ambulatory DO Phil Reynagalong Work Phone: [facility] Work Phone: Start: 02-15-2022 End: 02-15-2022 Patient encounter procedure DO Phil Reynagalong Work Phone: [facility] Start: 02-03-2022 End: 09-17-[address] PHIL MORIN Facility:[facility]1 Start: 01-02-2022 End: 01-03-[address] PHIL MORIN Facility:[facility]1 Start: 12-13-2021 Office outpatient vi sit 25 minutes Phil Nicoleyrn Work Phone: [facility] 250 DO Work Phone: Start: 12-02-2021 End: 12-16-[address] PHIL MORIN Facility:H1 Start: 11-18-2021 End: 11-19-[address] PHIL MORIN Facility:[facility]1 Start: 05-02-2021 Office outpatient vi sit 25 minutes Phil Morin Work Phone: [facility] 250 DO Work Phone: Procedures Date Procedure Procedure Detail Performing Clinician Start: 03-04-2024 Ecg routine ecg w/le ast 12 lds trcg only w/o i&r Aleena Dinero [employer] Work Phone: Start: 03-04-2024 Basic metabolic pane l calcium total Aleena Dinero [employer] Work Phone: Start: 02-26-2024 Ecg routine ecg w/le ast 12 lds trcg only w/o i&r Nicole Rose MD Work Phone: Start: 08-06-2023 Adult depression scr eening assessment Phil Furlong DO Work Phone: Start: 05-29-2023 Adult depression scr eening assessment Phil Furlong DO Work Phone: Start: 06-15-2022 Excision malignant l esion s/n/h/f/g 2.1-3.0 cm Florentino Kumari Start: 06-06-2022 Excision malignant: Scalp/Neck/Hands/Feet/Genit adam - 4.0cm [id number] Florentino Kumari Start: 06-06-2022 Excision malignant: Scalp/Neck/Hands/Feet/Genit adam - 4.0cm [id number] Florentino Kumari Start: 03-23-2022 End: 03-23-2022 Exc b9 lesion mrgn xcp sk tg t/a/l 3.1-4.0 cm Florentino Quoc Start: 02-28-2022 Karlie amaya Brain Surgery Phil [...] (2 - Td or Tdap) [facility] Start: 08-11-2027 DTaP/Tdap/Td Vaccines (2 - Td or Tdap) DTaP/Tdap/Td Vaccines (2 - Td or Tdap) [facility] Start: 03-06-2025 Adult BMI Screening Adult BMI Screening [facility] Start: 03-06-2025 Tobacco Screening Tobacco Screening [facility] Start: 03-04-2025 Creatinine measurement Creatinine Level [facility] Start: 03-04-2025 Potassium measurement Potassium Level [facility] Start: 09-04-2024 End: 09-04-2024 Patient encounter procedure 09/04/2024 10:00 AM EDT Office Visit [facility] [address] [place] [address] Phil Morin MartínezDO [address] [facility] [place] [address] [facility] Start: 09-02-2024 End: 03-04-2025 Cardiac Device Check - In Clinic Cardiac Device Check - In Clinic Implantable Cardiac Device Routine 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 Expected: 09/02/2024 (Approximate), Expires: 03/04/2025 [facility] Service Area Work Phone: Comment on above: Expected: 09/02/2024 (Approximate), Expi res: 03/04/2025 Start: 09-02-2024 End: 09-02-2024 Patient encounter procedure [facility] Start: 08-05-2024 Administration of varicella zoster vaccine Zoster (Shingles) Vaccine (1 of 2) [facility] Comment on above: Postponed from 09/25/2015 (Patient Refus ed) Start: 08-05-2024 Adult BMI Screening Adult BMI Screening [facility] Start: 08-05-2024 Depression Screening Depression Screening [facility] Start: 08-05-2024 Tobacco Screening Tobacco Screening [facility] Start: 08-04-2024 End: 08-04-2024 Patient encounter procedure 08/04/2024 9:30 AM EDT Office Visit [address] [place] [address] Adri Mckenzie MD [address] [facility] 2, [address] [address] [facility] Start: 05-29-2024 Adult BMI Screening Adult BMI Screening [facility] Start: 05-29-2024 Depression Screening Depression Screening [facility] Start: 05-29-2024 Fall Risk Screening Fall Risk Screening [facility] Start: 05-29-2024 Tobacco Screening Tobacco Screening [facility] Start: 03-11-2024 End: 03-11-2024 Clinical Support 03/11/2024 9:30 AM EDT Clinical Support [address] [address] [facility] Start: 03-04-2024 End: 03-04-2024 Admission to same day surgery center 03/04/2024 3:30 PM EDT - 03/04/2024 4:30 PM EDT Surgery [facility] [address] [place] [address] Nicole Rose MD [address] [place] [address] ICD DC Generator Change [66326 (CPT )] [facility] Comment on above: ICD DC Generator Change [14011 (CPT )] Start: 03-04-2024 Subsequent hospital visit by physician 03/04/2024 3:30 PM EDT Hospital Encounter [facility] [address] [place] [address] Nicole Rose MD [address] [place] [address] 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; Ventricular tachycardia (Multi) [facility] Comment on above: ICD (implantable cardioverter-defibrilla tor) in place; Ventricular tachycardia (Multi) Start: 02-06-2024 End: 02-06-2024 Patient encounter procedure 02/06/2024 9:00 AM EDT Office Visit [facility] [address] [place] [address] Phil Morin, [address] [facility] [place] [address] [facility] Start: 01-20-2024 COVID-19 Vaccine ( season) COVID-19 Vaccine ( season) [facility] Start: 01-20-2024 Influenza vaccination [facility] Start: 10-16-2023 FUV, Provider: Aidan Langston, Status: Pen, Time: 9:00 AM FUV, Provider: Aidan Langston, Status: King, Time: 9:00 AM [facility] 250 DO Work Phone: Start: 08-06-2023 End: 08-06-2023 Patient encounter procedure 08/06/2023 10:10 AM EDT Office Visit [facility] [address] [place] [address] Phil Morin, DO [address] [place] [address] [facility] Start: 07-30-2023 End: 07-30-2023 Patient encounter procedure 07/30/2023 10:20 AM EDT Office Visit [facility] Internal Medicine - Family [facility] [address] [place] [address] Phil Morin, DO [address] [place] [address] [facility] Start: 01-19-2023 COVID-19 Vaccine ( season) COVID-19 Vaccine ( season) [facility] Start: 01-12-2023 FUV, Provider: Aidan Langston, Status: Pen, Time: 2:10 PM FUV, Provider: Aidan Langston, Status: Pen, Time: 2:10 PM [facility] 250 DO Work Phone: Start: 07-14-2022 FUV, Provider: Aidan Langston, Status: Pen, Time: 3:10 PM FUV, Provider: Aidan Langston, Status: Pen, Time: 3:10 PM [facility] Work Phone: Start: 06-27-2022 FUV, Provider: Doron Jacobsen, Status: Pen, Time: 9:10 AM FUV, Provider: Doron Jacobsen, Status: Pen, Time: 9:10 AM [facility] 250 DO Work Phone: Start: 12-13-2021 FUV, Provider: Aidan Langston, Status: Pen, Time: 8:50 AM FUV, Provider: Aidan Langston, Status: Pen, Time: 8:50 AM [facility] 250 DO Work Phone: Start: 06-03-2016 Creatinine measurement Creatinine Level [facility] Start: 06-03-2016 Potassium measurement Potassium Level [facility] Start: 09-25-2015 Administration of varicella zoster vaccine Zoster (Shingles) Vaccine (1 of 2) [facility] [facility] Start: 09-25-2015 Zoster Vaccines (2 of 3) Zoster Vaccines (2 of 3) [facility] Start: 1994 RSV patients and/or patients aged 60+ years (1 - 1-dose 60+ series) RSV patients and/or patients aged 60+ years (1 - 1-dose 60+ series) [facility] Start: 1952 Diabetes mellitus screening Diabetes Screening [facility] Start: 02-13-1935 Examination of skin Derm Melanoma Skin Check [facility] Start: 1934 Echocardiography Echocardiogram [facility] Start: 1934 Lipid panel Lipid Panel [facility] Start: 1934 Medicare Annual Wellness Visit [facility] Start: 1934 Screening for osteoporosis Bone Density Scan [facility] End: 05-29-2024 Comprehensive metabolic 2000 panel - Serum or Plasma Comprehensive metabolic panel Lab Routine Hypertensive 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 ([facility]) 1 Occurrences starting 05/29/2023 until 05/29/2024 [facility] Comment on above: 1 Occurrences starting 05/29/2023 until 05/29/2024 ECG 12 lead STAT ECG 12 lead STA T ECG STAT 03/04/2024 12:20 PM EDT [facility] Service Area Work Phone: End: 02-26-2024 Electrophysiology study [facility] Service Are a Work Phone: Comment on above: Once for 1 Occurrences starting 02/26/20 24 until 02/26/2024 End: 05-29-2024 Hemoglobin A1c/Hemoglobin.total in Blood Hemoglobin A1c Lab Routine Type 2 diabetes mellitus without complication, without long-term current use of insulin ([facility]) 1 Occurrences starting 05/29/2023 until 05/29/2024 [email or web address] Comment on above: 1 Occurrences starting 05/29/2023 until 05/29/2024 End: 03-06-2025 Hemoglobin A1c/Hemoglobin.total in Blood Hemoglobin A1c Lab Routine Type 2 diabetes mellitus without complication, without long-term current use of insulin ([facility]) 1 Occurrences starting 03/06/2024 until 03/06/2025 [email or web address] Comment on above: 1 Occurrences starting 03/06/2024 until 03/06/2025 End: 05-29-2024 Lipid panel Lipid panel Lab Routine Arteriosclerotic vascular disease 1 Occurrences starting 05/29/2023 until 05/29/2024 [email or web address] Comment on above: 1 Occurrences starting 05/29/2023 until 05/29/2024 End: 03-06-2025 Magnesium [Mass/volume] in Serum or Plasma Magnesium Lab Routine Hypertensive 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 ([facility]) 1 Occurrences starting 03/06/2024 until 03/06/2025 [email or web address] Comment on above: 1 Occurrences starting 03/06/2024 until 03/06/2025 End: 03-06-2025 Parathyroid Hormone, intact Parathyroid Hormone, intact Lab Routine Hypertensive 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 ([facility]) 1 Occurrences starting 03/06/2024 until 03/06/2025 [email or web address] Comment on above: 1 Occurrences starting 03/06/2024 until 03/06/2025 End: 03-06-2025 Phosphate [Mass/volume] in Serum or Plasma Phosphorus Lab Routine Hypertensive 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 ([facility]) 1 Occurrences starting 03/06/2024 until 03/06/2025 [email or web address] Comment on above: 1 Occurrences starting 03/06/2024 until 03/06/2025 End: 05-29-2024 Protime & INR Protime & INR Lab Routine Paroxysmal atrial fibrillation ([facility]) 1 Occurrences starting 05/29/2023 until 05/29/2024 [employer] Work Phone: Comment on above: 1 Occurrences starting 05/29/2023 until 05/29/2024 End: 05-29-2025 Protime-INR Protime-INR Lab Routine Longstanding persistent atrial fibrillation ([facility]) 1 Occurrences starting 05/29/2024 until 05/29/2025 [employer] Work Phone: Comment on above: 1 Occurrences starting 05/29/2024 until 05/29/2025 End: 05-29-2024 Thyrotropin [Units/volume] in Serum or Plasma TSH Lab Routine Hypothyroidism, unspecified type 1 Occurrences starting 05/29/2023 until 05/29/2024 [email or web address] Comment on above: 1 Occurrences starting 05/29/2023 until 05/29/2024 End: 03-06-2025 Urate [Mass/volume] in Serum or Plasma Uric acid Lab Routine Hypertensive 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 ([facility]) 1 Occurrences starting 03/06/2024 until 03/06/2025 [employer] Work Phone: Comment on above: 1 Occurrences starting 03/06/2024 until 03/06/2025 End: 03-06-2025 Vitamin D 25 hydroxy Vitamin D 25 hydroxy Lab Routine Hypertensive 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 ([facility]) Stage 4 chronic kidney disease ([facility]) 1 Occurrences starting 03/06/2024 until 03/06/2025 [email or web address] Comment on above: 1 Occurrences starting 03/06/2024 until 03/06/2025 Immunizations Immunization Date Immunization Notes Care Provider [facility] 02-27-2024 Influenza, High-dose , Quadrivalent Phil Nicoleng DO Work Phone: [facility] [employer] 03-30-2023 Influenza, High-dose , Quadrivalent Phil [facility]eng DO [facility] 03-30-2023 influenza virus vacc ine, unspecified formulation Phil Morin DO Work Phone: [facility] 02-16-2022 Fluzone High-Dose Quadrivalent 0.7 ML Intramuscular Suspension Prefilled Syringe Phil Morin Work Phone: [facility] DO Work Phone: 01-28-2021 Fluad Quadrivalent 0 .5 ML Intramuscular Prefilled Syringe Phil Nicoleng Work Phone: [facility] 250 DO Work Phone: 07-14-2020 [employer] COVI D-19 Vacc 30 MCG/0.3ML Intramuscular Suspension Phil Reynagalong Work Phone: [facility] 250 DO Work Phone: 07-01-2020 [employer] COVI D-19 Vacc 30 MCG/0.3ML Intramuscular Suspension Phil Reynagalong Work Phone: [facility] 06-16-2020 COVID-19, mRNA, LNP- S, PF, 30mcg/0.3mL Dose Phil Morin DO Work Phone: [facility] 06-11-2020 [employer] COVI D-19 Vacc 30 MCG/0.3ML Intramuscular Suspension Phil Nicoleng Work Phone: [place] [address] DO Work Phone: 04-05-2020 pneumococcal polysaccharide vaccine, 23 valent Phil Nicoleng Work Phone: [place] [address] DO Work Phone: 02-23-2020 Fluad Quadrivalent 0 .5 ML Intramuscular Prefilled Syringe Phil Morin Work Phone: [place] [address] DO Work Phone: 02-19-2020 influenza, seasonal, injectable Phil Nicoleng Work Phone: [place] [address] DO Work Phone: 07-20-2019 pneumococcal conjuga te vaccine, 13 valent Phil Soliz [place] Work Phone: [place] [address] DO Work Phone: 03-12-2019 pneumococcal conjuga te vaccine, 13 valent Phil Soliz [place] Work Phone: [place] [address] DO Work Phone: 03-12-2019 Seasonal trivalent influenza vaccine, adjuvanted, preservative free Phil Soliz [place] Work Phone: [place] [address] DO Work Phone: 02-18-2019 influenza virus vacc ine, unspecified formulation Phil Soliz [place] Work Phone: [place] [address] DO Work Phone: 03-04-2018 influenza virus vacc ine, unspecified formulation Phil Soliz [place] Work Phone: [place] [address] DO Work Phone: 08-10-2017 tetanus toxoid, redu edwin diphtheria toxoid, and acellular pertussis vaccine, adsorbed Phil Soliz [place] Work Phone: [place] [address] DO Work Phone: 03-21-2017 influenza virus vacc ine, unspecified formulation Phil Soliz [place] Work Phone: [place] [address] DO Work Phone: 03-13-2017 influenza, seasonal, injectable Phil Soliz [place] Work Phone: [place] [address] DO Work Phone: 02-21-2016 influenza, seasonal, injectable, preservative free Phil Soliz [place] Work Phone: [place] [address] DO Work Phone: 02-19-2016 influenza virus vacc ine, unspecified formulation Phil Soliz [place] Work Phone: [place] [address] DO Work Phone: 07-31-2015 zoster vaccine, live [facility]eng [facility] Work Phone: 07-31-2015 zoster vaccine, unspecified formulation Phil Reynagalong DO Work Phone: [facility] 02-18-2015 influenza virus vacc ine, unspecified formulation Phil Reynagalong Work Phone: [place] [address] DO Work Phone: 02-17-2015 influenza, seasonal, injectable, preservative free Phil Reynagayrn DO Work Phone: [facility] 05-11-2014 pneumococcal polysaccharide vaccine, 23 valent Phil Reynagalong Work Phone: [place] [address] DO Work Phone: 02-18-2014 influenza virus vacc ine, unspecified formulation Phil Reynagang Work Phone: [place] [address] DO Work Phone: 04-03-2013 pneumococcal conjuga te vaccine, 13 valent Phil Reynagalong Work Phone: [place] [address] DO Work Phone: 02-18-2013 influenza virus vacc ine, unspecified formulation Phil Reynagang Work Phone: [place] [address] DO Work Phone: 02-18-2013 pneumococcal polysaccharide vaccine, 23 valent Phil G Furlong Work Phone: [facility] 250 DO Work Phone: 12-20-2011 influenza virus vacc ine, unspecified formulation Phil G [place] Work Phone: [facility] 250 DO Work Phone: 05-21-2010 influenza virus vacc ine, unspecified formulation Phil G [place] Work Phone: [place] [address] DO Work Phone: 05-21-2009 influenza virus vacc ine, unspecified formulation Phil Reynagalong Work Phone: [place] [address] DO Work Phone: 05-21-2008 influenza virus vacc ine, unspecified formulation Phil Reynagalong Work Phone: [place] [address] DO Work Phone: 05-21-2007 pneumococcal polysaccharide vaccine, 23 valent Phil Reynagang Work Phone: [place] [address] DO Work Phone: 03-28-2002 pneumococcal polysaccharide vaccine, 23 valent Phil Soliz [place] Work Phone: [place] [address] DO Work Phone: 03-21-2002 pneumococcal polysaccharide vaccine, 23 valent Phil Nicoleng DO Work Phone: [facility] 1934 pneumococcal conjuga te vaccine, 7 valent [facility] Payers Date Payer Category Payer Self-pay [id number] 2022 Medicare [id number] 1959 Private Health Insurance [id number] 1959 Private Health Insurance [id number] 1934 Unknown [id number] [id number]3 1934 Unknown [id number] 2.16.840.1.411058.3.579.2.593 1934 Unknown [id number] 2.16.840.1.253972.3.579.2.593 1934 Unknown [id number] 2.16.840.1.193233.3.579.2.593 1934 Unknown [id number] 2.16.840.1.697766.3.579.2.593 1934 Unknown [id number] 2.16.840.1.950652.3.579.2.593 1934 Unknown [id number] 2.16.840.1.415712.3.579.2.593 1934 Unknown [id number] 2.16.840.1.744021.3.579.2.593 1934 Unknown [id number] 2.16.840.1.246343.3.579.2.593 1934 Unknown [id number] 2.16.840.1.249685.3.579.2.593 1934 Unknown [id number] 2.16.840.1.386974.3.579.2.593 1934 Unknown [id number] 2.16.840.1.081140.3.579.2.593 1934 Unknown [id number] 2.16.840.1.718141.3.579.2.593 1934 Unknown [id number] 2.16.840.1.020768.3.579.2.1246 1934 Unknown [id number] 2.16.840.1.783632.3.579.2.1246 1934 Unknown [id number] 2.16.840.1.038329.3.579.2.1286 1934 Unknown [id number] 2.16.840.1.978083.3.579.2.1286 1934 Unknown [id number] 2.16.840.1.094118.3.579.2.1286 1934 Unknown [id number] 2.16.840.1.366954.3.579.2.1286 1934 Unknown [id number] 2.16.840.1.109267.3.579.2.1286 1934 Unknown [id number] 2.16.840.1.783901.3.579.2.1244 1934 Unknown [id number] 2.16.840.1.370683.3.579.2.1244 Medicare Medicare [id number] Medicare Medicare [id number] Unknown Unknown Dean BC/BS [id number] Unknown [id number] 2.16.840.1.709060.3.579.2.531 Unknown [id number] 2.16840.1.226780.3.579.2.531 Unknown [id number] 2.16.840.1.750849.3.579.2.531 Unknown [id number] 2.16840.1.435024.3.579.2.531 Social History Date Type Detail Facility Start: 09-19-2022 End: 05-29-2023 No alcohol use No alcohol use [place] [address] DO Work Phone: Comment on above: 2 cups coffee daily; Start: 07-19-2019 End: 03-31-2022 Tobacco smoking status NHIS Never smoked tobacco (finding) [facility] Start: 1934 End: 1934 Sex Assigned At Male [facility] Start: 02-28-2022 Dept. of D ermatology Start: 03-31-2022 End: 07-11-2023 Tobacco use and exposure Smokeless tobacco non-user [facility] Start: 05-29-2023 End: 03-06-2024 Alcohol intake [facility]-drinker (finding) [facility] Start: 09-19-2022 End: 05-29-2023 [facility] Util[facility] tem Has the Convrrt, or cookdinner threatened to shut off services in your home in past 12Mo No [employer] Are you now , , , , never or living with a partner? [facility] How often to you hav e a drink containing alcohol? Never [facility] How many standard drinks containing alcohol do you have on a typical day? Patient does not drink [facility] Do you feel stress - tense, restless, nervous, or anxious, or unable to sleep at night because your mind is troubled all the time - these days [OSQ] Not at all [employer] [facility] Start: 1935 Sex Assigned At Not on file [facility] Start: 11-05-2023 End: 03-04-2024 Alcoholic beverage intake Lifetime non-drinker (finding) [facility] Work Phone: Start: 10-26-2023 End: 03-04-2024 Exposure to SARS-CoV-2 (event) Not sure [facility] Start: 12-24-2014 Sex Male (finding) [employer] [facility] Medical Equipment Procedure Code Equipment Code Equipment Origin al Text Equipment Identifier Dates Willow Rodriguez Icd D f1 Connector [id number] Start: 03-04-2024 Goals Date Patient Goal Desired Activity /State Clinical Notes 05-29-2023 to 05-28-2024 Telephone Encounter - Kaylan Dunbar, LULY - 05/28/2024 11:03 AM ESTTelephone Encounter - Kaylan Dunbar CMA - 05/28/2024 11:03 AM Romana Morin DO - 03/06/2024 10:45 AM EDTPatient Instructions Note Date & Type Note Facility 05-28-2024 Miscellaneous Notes Patient came in to check on his INR and doctor looked at it and stated that he needs to continue current regimen and to recheck in 1 month. Can you please put in a new standing order for [facility] for the new year. Please then send to [facility] documented in this encounter [facility] 05-28-2024 Telephone encounter Note Patient came in to check on his INR and doctor looked at it and stated that he needs to continue current regimen and to recheck in 1 month. Can you please put in a new standing order for [facility] for the new year. 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 CMP done prior to his pacemaker surgery was reviewed and showed stage 4 chronic kidney disease which is stable. Hypertensive 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 ([facility]) - Uric acid; Future - Magnesium; Future - Vitamin D 25 hydroxy; Future - Parathyroid Hormone, intact; Future - Phosphorus; Future Check chronic kidney disease labs Cardiomyopathy ([facility]) Stable. 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 Last A1c was 6.5% with diet control only. documented in this encounter [facility] 03-04-2024 Attending History and physical note [...] Mckenzie for generator change for device at [facility]. 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 He has an atrial pacesetter lead as well as a Riata lead in the RV. He has chronic atrial lead noise reversion episodes. He has 98% atrial paced and ventricular plate paced less than 1% the time. His device reached [facility] in January 2024. He is here today [...] Last device interrogation 02/05/2024 shows device at [place], predominantly atrial paced, minimal ventricular pacing, leads [...] his ICD, initially placed in 2002, at [facility]. He will need a generator change. He [...] routine generator change of his device at [facility]. His device will reach end-of-life in April. The risks and benefits of generator change were discussed in detail, including infection, bleeding, hematoma, damage to the existing leads, etc. The patient is agreeable to move forward with generator change. Name: Donovan Jacome Attending: Nicole Rose MD Procedure: ICD generator change Date desired: As soon as possible Diagnosis: Device at [facility] Vendor if applicable: [employer] Expected anesthesia: RN [...] or concerns. Nicole Rose MD Clinical Cardiac Regulatory Affairs Strategy Specialist, [facility] [place] [employer] Installerpaper cone machine tender, [facility] [employer] Director of Atrial Fibrillation Ablation, [facility] Coordinator of Ventricular Arrhythmias Research, [facility] Office [facility] Work Phone: 03-04-2024 History and physical [...] Mckenzie for generator change for device at [facility]. 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 He has an atrial pacesetter lead as well as a Riata lead in the RV. He has chronic atrial lead noise reversion episodes. He has 98% atrial paced and ventricular plate paced less than 1% the time. His device reached [facility] in January 2024. He is here today [...] Last device interrogation 02/05/2024 shows device at [facility], predominantly atrial paced, minimal ventricular pacing, leads [...] his ICD, initially placed in 2002, at [facility]. He will need a generator change. He [...] routine generator change of his device at [facility]. His device will reach end-of-life in April. The risks and benefits of generator change were discussed in detail, including infection, bleeding, hematoma, damage to the existing leads, etc. The patient is agreeable to move forward with generator change. Name: Donovan Jacome Attending: Nicole Rose MD Procedure: ICD generator change Date desired: As soon as possible Diagnosis: Device at [facility] Vendor if applicable: [employer] Expected anesthesia: RN [...] or concerns. Nicole Rose MD Clinical Cardiac Regulatory Affairs Strategy Specialist, [facility] [place] [employer] Installerpaper cone machine tender, [facility] [employer] Director of Atrial Fibrillation Ablation, [facility] Coordinator of Ventricular Arrhythmias Research, [facility] Office documented in this encounter [facility] Work Phone: 03-04-2024 Nurse Note Discharge instructions reviewed with patient and son. Discussed in depth post procedure restrictions and follow up appointments. Questions and concerns addressed. Left upper chest remains stable and unchanged. Plan to dc home. [facility] Work Phone: 03-04-2024 Nurse Note Discharge [...] continue to monitor. documented in this encounter [facility] Work Phone: 03-04-2024 Nurse Note Patient returned from EP lab, sp ICD gen change. Left upper chest incision closed with aquacel dressing and CDI. Ice pack applied to site. Patient A&Ox4 and has no c/o at this time. VSS. Family at bedside, will continue to monitor. [facility] Work Phone: 03-04-2024 Hospital Discharge instructions Aleena Fairbanks APRN-DONOR RELATIONS ASSOCIATE - 03/04/2024 3:39 PM EDT Images from [...] have been instructed by the device company credit and collections representative regarding remote home monitoring. There are [...] after visit summary documented in this encounter [facility] Work Phone: 03-04-2024 Note Formatting of this n ote might be different from the original. Sedation Plan ASA 2 Mallampati class: I. Risks, benefits, and alternatives discussed with patient. [facility] Work Phone: 03-04-2024 Miscellaneous Notes Sedation Plan ASA 2 Mallampati class: I. Risks, benefits, and alternatives discussed with patient. documented in this encounter [facility] Work Phone: 02-26-2024 History of Present [...] Mckenzie for generator change for device at [facility]. 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 He has an atrial pacesetter lead as well as a Riata lead in the RV. He has chronic atrial lead noise reversion episodes. He has 98% atrial paced and ventricular plate paced less than 1% the time. His device reached [facility] in January 2024. He is here today [...] Last device interrogation 02/05/2024 shows device at [facility], predominantly atrial paced, minimal ventricular pacing, leads [...] his ICD, initially placed in 2002, at [facility]. He will need a generator change. He [...] routine generator change of his device at [facility]. His device will reach end-of-life in April. The risks and benefits of generator change were discussed in detail, including infection, bleeding, hematoma, damage to the existing leads, etc. The patient is agreeable to move forward with generator change. Name: Donovan Jacome Attending: Nicole Rose MD Procedure: ICD generator change Date desired: As soon as possible Diagnosis: Device at [facility] Vendor if applicable: [employer] Expected anesthesia: RN [...] or concerns. Nicole Rose MD Clinical Cardiac Regulatory Affairs Strategy Specialist, [facility] [place] [employer] Installerpaper cone machine tender, [facility] [employer] Director of Atrial Fibrillation Ablation, [facility] Coordinator of Ventricular Arrhythmias Research, [facility] Office documented in this encounter [facility] Work Phone: 11-05-2023 History of Present [...] By signing my name below, IAleena LPN , Scribe attest that this documentation has been [...] discussion and plan. documented in this encounter [facility] Work Phone: 11-05-2023 Instructions Dex Crump [...] of your visit. documented in this encounter [facility] Work Phone: 08-06-2023 History of Present [...] and renal disease with (congestive) heart failure ([facility]) - TSH; Future - Comprehensive metabolic panel; Future Blood pressure at goal. Continue current regimen. Check CMP and TSH. Hyperlipidemia, unspecified hyperlipidemia type - Lipid panel; Future Check lipid panel Stage 4 chronic kidney disease ([facility]) TSH; Future Check TSH and CMP. Type 2 diabetes mellitus without complication, without long-term current use of insulin ([facility] - Hemoglobin A1c; Future - TSH; Future Check A1c. Hyperparathyroidism ([facility]) Check kidney function test. Malignant melanoma of scalp or neck ([facility] [facility]) He does not want to go back to see the specialist. I am not sure what surgery the specialist had planned Longstanding persistent atrial fibrillation ([facility] Seems to be in sinus rhythm now. Continue Eliquis Paroxysmal atrial fibrillation ([facility] Microalbuminuric diabetic nephropathy ([facility] Check labs documented in this encounter [email or web address] 05-29-2023 History of Present illness Narrative Subjective [...] orders for this visit: Paroxysmal atrial fibrillation ([facility]) - Protime & INR; Future New order for protime and INR given to the patient. I will also fax to the [facility]. Hypertensive 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 ([facility]) - Comprehensive metabolic panel; Future Check CMP. [...] complication, without long-term current use of insulin ([facility]) - Hemoglobin A1c; Future Check A1c Arteriosclerotic vascular disease - Lipid panel; Future Check lipid panel documented in this encounter [facility] Evaluation note No assessment inform ation available [facility] Work Phone: Evaluation note N/A Dept. of Dermato logy Evaluation note Diagnosis Paroxysmal atrial fibrillation ([facility] Primary Atrial fibrillation Hypertensive 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 ([facility]) Essential hypertension Unspecified essential hypertension Hypothyroidism, unspecified type Type 2 diabetes mellitus without complication, without long-term current use of insulin ([facility]) Arteriosclerotic vascular disease Generalized and unspecified atherosclerosis documented in this encounter [facility] System[facility]* Diagnosis Longstanding persistent atrial fibrillation ([facility] Primary documented in this encounter [facility]* Diagnosis Hypertensive 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 ([facility] Primary Hyperlipidemia, unspecified hyperlipidemia type Stage 4 chronic kidney disease ([facility]) Type 2 diabetes mellitus without complication, without long-term current use of insulin ([facility]) Hyperparathyroidism ([facility]) Hyperparathyroidism, unspecified Malignant melanoma of scalp or neck ([facility] Malignant melanoma of skin of scalp and neck Longstanding persistent atrial fibrillation ([facility] Paroxysmal atrial fibrillation ([facility]) Atrial fibrillation Microalbuminuric diabetic nephropathy ([facility]) documented in this encounter [facility] System[facility]* Diagnosis Type 2 diabetes mellitus without complication, without long-term current use of insulin ([facility])- Primary Hypertensive 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 ([facility]) documented in this encounter [facility]* Diagnosis Arteriosclerotic cardiovascular disease (ASCVD)- Primary Unspecified cardiovascular disease Essential hypertension Unspecified essential hypertension Mixed hyperlipidemia Ventricular tachycardia (Multi) Paroxysmal ventricular tachycardia ICD (implantable cardioverter-defibrillator) in place Dilated cardiomyopathy (Multi) Other primary cardiomyopathies Ischemic cardiomyopathy Other specified forms of chronic ischemic heart disease documented in this encounter [facility] Work Phone: Evaluation note* Diagnosis ICD (implantable cardioverter-defibrillator) in place Ventricular tachycardia (Multi) Paroxysmal ventricular tachycardia Ischemic cardiomyopathy Other specified forms of chronic ischemic heart disease ICD (implantable cardioverter-defibrillator) in place Ventricular tachycardia (Multi) Paroxysmal ventricular tachycardia ICD (implantable cardioverter-defibrillator) in place Ventricular tachycardia (Multi) Paroxysmal ventricular tachycardia documented in this encounter [facility] Work Phone: Evaluation note* Diagnosis ICD (implantable cardioverter-defibrillator) in place- Primary Ventricular tachycardia (Multi) Paroxysmal ventricular tachycardia documented in this encounter [facility] Work Phone: Evaluation note* Diagnosis Hypertension associated with 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 ([facility] Primary Hypertensive 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 ([facility]) Cardiomyopathy ([facility]) Stage 4 chronic kidney disease ([facility]) Type 2 diabetes mellitus without complication, without long-term current use of insulin ([facility]) documented in this encounter [facility]* Diagnosis Vitamin D deficiency- Primary documented in this encounter [facility]* Diagnosis Longstanding persistent atrial fibrillation ([facility])- Primary documented in this encounter [facility] SystemHistory of Present illness Narrative* Patient [...] the above we will continue as is. -[facility] [employer] 250 DO Work Phone: History of Present [...] the above we will continue as is. [facility] [employer] 250 DO Work Phone: History of Present [...] the above [facility] Work Phone: History of Present illness [...] significant cardiac hx with decreased cardiac function [facility] Work Phone: History of Present illness NarrativePatient [...] we believe his cardiac status to be stable.[facility] [employer] 250 DO Work Phone: History of Present [...] we suggested continued therapy as before without change.-[facility] DO Work Phone: InstructionsNot on filedocumented in this encounter [facility] SystemInstructionsNot on filedocumented in this encounter [facility] SystemInstructionsNot on filedocumented in this encounter [facility] SystemInstructionsNot on filedocumented in this encounter [facility] SystemInstructionsNot on filedocumented in this encounter [facility] SystemReason for referral (narrative)* Name Reason for referral NA NA Dept. of Dermatology Reason for referral (narrative)* Consultation (Routine) - Authorized Specialty Diagnoses / Procedures Referred By Nuvia ware Referred To Contact Cardiology Diagnoses Arteriosclerotic cardiovascular disease (ASCVD) Procedures Follow Up In Cardiology Aidan Langston MD [address] [place] [id number] Adri Mckenzie MD [address] [place] [address] [address], [address] [address] Referral ID Status Reason Start Date Expiration Date V isits Requested Visits Authorized [id number] Authorized 11/05/2023 11/04/2024 1 1 T [facility] Work Phone: Rerxqs for visit Narrative* Auth/Cert Specialty Diagnoses / Procedures Referred By Nuvia ware Referred To Contact Diagnoses ICD (implantable cardioverter-defibrillator) in place Ventricular tachycardia (Multi) ICD (implantable cardioverter-defibrillator) in place [Z95.810] Ventricular tachycardia (Multi) [I47.20] Procedures [place] RMVL IMPLTBL DFB PLSE GEN W/RPLCMT PLSE GEN 2 LD ICD DC Generator Change Nicole Rose MD [address] [place] [address] [place] [facility] [address] [place] [address] Referral ID Status Reason Start Date Expiration Date Visits Re quested Visits Authorized [id number] 1 1 [facility] Work Phone: Summary Purpose Family History Unknown Family Member [...] mellitus Unknown Malignant neoplasm Unknown Advance Directives Advance Directive Response Recorded Date/ Time Advance Directives No March 20, 2017 1:25pm Advance Directive Response Recorded Date/ Time Advance Directives No March 20, 2017 12:25pm Date Activated Date Inactivated Comments 03/04/2024 12:04 PM Question Answer Comments Plan of Care: Code Status Discussion Not Compl eted Decision Maker: Provider Rationale: Patient condition does not warra nt discussion Chief Complaint DONOAVN JACOME is being seen for a 6 [...] Referral Specialty Diagnoses / Procedures Referred By Nuvia t Referred To Contact Diagnoses ICD (implantable cardioverter-defibrillator) in place Procedures ECG 12 Lead Nicole Rose MD [address] [place] [address] Referral ID Status Reason Start Date Expiration Date V isits Requested Visits Authorized [id number] Authorized 02/26/2024 02/25/2025 1 1 Specialty Diagnoses / Procedures Referred By Contac t Referred To Contact Cardiology Diagnoses ICD (implantable cardioverter-defibrillator) in place Procedures Cardiac Device Check - In Clinic Aleena Fairbanks, BAR HEL[employer]OR [employer]ATIONS ASSOCIATE [address] [facility] [address], [address] [address] Referral ID Status Reason Start Date Expiration Date Visits Requested Visits Authorized [id number] Pending Review Perform Procedure 03/04/2025 1 1 Specialty Diagnoses / Procedures Referred By Inesac t Referred To Contact Cardiology Diagnoses ICD (implantable cardioverter-defibrillator) in place Procedures Follow Up In Cardiology Aleena Fairbanks, BAR HELPER[employer]DONOR RELATIONS ASSOCIATE [address] [facility] [address], [address] [place] [address] Referral ID Status Reason Start Date Expiration Date V isits Requested Visits Authorized [id number] Authorized 03/04/2024 03/04/2025 1 1 Additional Source Comments (unrecognized sect ion and content) No Status Records FoundNo Status Records FoundNo Status Records FoundNo Status Records FoundNo Status Records FoundNo Status Records FoundNo Status Records FoundNo Status Records FoundNo Status Records FoundNo Status Records FoundNo Status Records Found INFORMATION SOURCE (unrecogn ized section and content) DATE CREATED AUTHOR 08/08/2019 [facility] DATE CREATED AUTHOR AUTHOR'S ORGANIZ ATION 02/27/2020 [facility] DATE CREATED AUTHOR AUTHOR'S ORGANIZ ATION 08/24/2021 [facility] DATE CREATED AUTHOR AUTHOR'S ORGANIZ ATION 10/27/2022 [facility] DATE CREATED AUTHOR AUTHOR'S ORGANIZ ATION 01/14/2023 [facility] DATE CREATED AUTHOR AUTHOR'S ORGANIZ ATION 03/06/2024 [facility] DATE CREATED AUTHOR AUTHOR'S ORGANIZ ATION 03/06/2024 [facility] DATE CREATED AUTHOR AUTHOR'S ORGANIZ ATION 03/08/2024 [facility] DATE CREATED AUTHOR AUTHOR'S ORGANIZ ATION 03/09/2024 [facility] DATE CREATED AUTHOR AUTHOR'S ORGANIZ ATION 03/13/2024 [facility] DATE CREATED AUTHOR AUTHOR'S ORGANIZ ATION 04/18/2024 [facility] Care Teams (unrecognized sec tion and content) Team Status: Active Member Role Status Dates Phil Morin DO Primary Care Provider Active Team Status: Inactive Member Role Status Dates Phil Morin DO Primary Care Provider Active Aidan Langston MD Attending Provider Active Lettuce Trimmer Relationship Specialty Start Date End Date Phil Morin DO [address] [facility] [place] [address] PCP - General Family Medicine 03/07/22 Team Status: Inactive Member Role Status Dates Phil Morin DO Primary Care Provider Active Start: June 28, 2023 End: June 28, 2023 Aidan Langston MD Attending Provider Active Start: June 28, 2023 End: June 28, 2023 Lettuce Trimmer Relationship Specialty Start Date End Date RonnelldestinyPhil pool DO [address] [place] [address] PCP - General Family Medicine 03/07/22 Lettuce Trimmer Relationship Specialty Start Date End Date PatiencePhil [address] [place] [address] PCP - General Family Medicine 03/07/22 Lettuce Trimmer Relationship Specialty Start Date End Date RonnellbretPhil [address] [place] [address] PCP - General Family Medicine 03/07/22 Lettuce Trimmer Relationship Specialty Start Date End Date Phil Morin [address] [place] [address] PCP - General Family Medicine 03/07/22 Team Status: Inactive Member Role Status Dates Phil Morin DO Primary Care Provider Active Start: September 27, 2023 End: September 27, 2023 Aidan Langston MD Attending Provider Active Start: September 27, 2023 End: September 27, 2023 Lettuce Trimmer Relationship Specialty Start Date End Date RonnelldestinyPhil pool [address] [place] [address] PCP - General 05/06/14 Team Status: Inactive Member Role Status Dates Phil ReynagadestinyDO yrn Primary Care Provider Active Start: December 27, 2023 End: December 27, 2023 Aidan Langston MD Attending Provider Active Start: December 27, 2023 End: December 27, 2023 Team Status: Inactive Member Role Status Dates Phil Ronnellbret Primary Care Provider Active Start: February 05, 2024 End: February 05, 2024 Adri Mckenzie MD Attending Provider Active Start: February 05, 2024 End: February 05, 2024 Lettuce Trimmer Relationship Specialty Start Date End Date Phil Morin DO [address], [place] [address] PCP - General Family Medicine 02/26/24 Lettuce Trimmer Relationship Specialty Start Date End Date RonnelldestinyPhil poolDO [address], [place] [address] PCP - General Family Medicine 02/26/24 Goals [...] tachycardia (Multi) Ischemic cardiomyopathy Adri Mckenzie MD [address] [facility] 2, [address] [address] Referral ID Status Reason Start Date Expiration Date Visits Requested Visits Authorized [id number] Authorized Specialty Services Required 02/12/2024 02/11/2025 1 [...] BE BASED ON THE PRIMARY CLINICAL RECORDS. [facility] [employer] [facility]. provides no warranty or guarantee of the accuracy or completeness of information in this document.
[2024-06-18 10:01] LABS: Prothrombin Time 35.3 sec (9.0-11.6)
== END 2024-06-18 09:04 | disposition home or self-care (01) ==
PROVIDERS: PCP Family Medicine; Visit Provider Family Medicine
DX: I48.11 Longstanding persistent atrial fibrillation (principal)
CPT/HCPCS: 36415; 85610

== ENCOUNTER 2024-07-02 09:08 | Outpatient (OUT) | payer MEDICARE, SELFPAY ==
--- OUTSIDE RECORDS SUMMARY | 2024-07-02 09:25 | XMS_ITS | CCD ---
Author Organization [facility] Care Team Providers Care Manager Product Support Name Role Phone Phil Morin Unavailable Unavailable Unavailable Ronnellloyrn, DO Villarreal Primary Care Provider [phone] MD Aidan Langston Attending Provider Karlie Craig Unavailable Unavailable Florentino Kumari Unavailable Unavailable Furlong, DO Phli Primary Care Provider MD Aidan Langston Attending [...] Unavailable KUNS, DR JARON Roger Attending Unavailable KUNS, DR [...] PHIL Soliz Primary Care Unavailable FURLONG, DR PIHL Soliz Attending Unavailable FURLONG, DR PHIL Soliz Admitting Unavailable FURLONG, DR PHIL Soliz Primary Care Unavailable FURLONG, DR PHIL Soliz Consulting Unavailable Furlong, DO Villarreal Primary Care Provider MD [facility]idan Langston [facility] Primary [facility] Provider MD Aidan Langston Attending Provider [facility] Primary Care Provider [phone] Corey, DO Villarreal Primary Care Provider MD Aidan Langston Attending Provider [facility] Phil PATEL [facility] Villarreal Primary Care Provider MD Aidan Langston Attending Provider MD Adri Mckenzie Attending Provider Furlong DO Phil Forrest Primary Care Provider GARLAND ROSE Attending Unavailable FURLONG, PHIL ADWAO Primary Care Unavailab le TRABOULSSIADRI Referring Unavailable [...] Unavail able Furlong, Phil Primary Care Unavailable McGuinAidan amaya Attending Unavail able Furlong, Phil Primary Care Unavailable Traboulssi, Lennyhaf Attending Unavailable TraboulssiAdri Admitting Unavailable Furlong Phil REGAN Primary Care Provider [phone] SWATI MEJIA Attending Unavailable Allergies Allergy Classification Reported Allergen(s) Allergy Type Date of Onset Reaction(s) Facility (20 sources) Aspirin; Translations: [aspirin] Drug Allergy 2 Other (See Comments), GI bleeding -[facility] 250 DO Work Phone: (1 source) No [...] End: 11-05-2023 carvediloL (COREG) 6.25 mg tablet cholecalciferol 1.25 mg oral capsule (3 sources) Vitamin D Start: 03-10-2024 take 1 capsule by mouth every week cholecalciferol (VITAMIN D3) 50,000 units capsule Take 1 capsule (50,000 Units total) by mouth once a week. 12 capsule 3 03/10/2024 Active eplerenone 25 mg oral tablet (20 sources) Aldosterone Antagonist Start: 04-24-2014 End: 02-26-2025 eplerenone (INSPRA) 25 mg tablet esomeprazole 20 [...] complication, without long-term current use of insulin ([facility]) , Hypertensive 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 ([facility]) Take 1 tablet (5 mg total) [...] 2 diabetes mellitus without complications] Onset: 6 03-07-2022 Chronic Disorders of lipid metabolism (20 sources) Hyperlipidemia; Translations: [Other and unspecified hyperlipidemia] Onset: 6 03-07-2022 Chronic Essential hypertension (20 sources) Essential hypertension; Translations: [Unspecified essential hypertension] Onset: 6 03-07-2022 Chronic Glaucoma (9 sources) Glaucoma; Translations: [Unspecified glaucoma] Onset: 6 03-07-2022 Chronic Hypertension with complications and secondary hypertension (15 sources) Hypertensive 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; Translations: [Hypertensive heart and chronic kidney disease with heart failure and stage 1 through stage 4 chronic kidney disease, or unspecified chronic kidney disease] Onset: 2 03-07-2022 Chronic Malignant neoplasm without specification of site (18 sources) Malignant neoplastic disease; Translations: [Other malignant neoplasm without specification of site] Onset: 2 03-07-2022 Chronic Melanomas of skin (20 sources) Malignant melanoma; Translations: [Melanoma of skin, site unspecified] Onset: 2 03-07-2022 Chronic Neoplasms of unspecified nature or uncertain behavior (6 sources) Neoplasm of uncertain behavior of skin Onset: 2 Episodic Nutritional deficiencies (10 sources) Vitamin D [...] loss, bilateral] Onset: 2 03-07-2022 Chronic Other ear and sense organ disorders (2 sources) Sensorineural hearing loss, bilateral; Translations: [Sensorineural hearing loss, bilateral] 06-24-2024 Chronic Other endocrine disorders (10 sources) Hyperparathyroidism; Translations: [Hyperparathyroidism, unspecified] Onset: 2 03-07-2022 Chronic Other endocrine disorders (1 source) Hyperparathyroidism, unspecified; Translations: [Hyperparathyroidism, unspecified] Onset: 2 Chronic Gianna-; endo-; and myocarditis; cardiomyopathy (except that caused by tuberculosis or sexually transmitted disease) (20 sources) Cardiomyopathy; Translations: [Other primary cardiomyopathies] Onset: 3 05-29-2023 Chronic Peripheral and visceral atherosclerosis (2 sources) Unspecified atherosclerosis; Translations: [Arteriosclerotic vascular disease] Onset: 2 05-29-2023 Chronic Phlebitis; thrombophlebitis and thromboembolism (12 sources) H/O: Deep vein thrombosis; Translations: [Personal history of venous thrombosis and embolism] Episodic Residual codes; unclassified (1 source) No current problems or disability; Translations: [Other specified conditions influencing health status] Onset: 2 Episodic Thyroid disorders (11 sources) Hypothyroidism; Translations: [Hypothyroidism, unspecified] Onset: 8 03-07-2022 Chronic Transient cerebral ischemia (20 sources) Transient [...] sources) Taking high risk medication; Translations: [Other adjunct faculty for medical terminology (current) drug therapy] Onset: 03-01-2023 03-01-2023 Episodic [...] Test Name Value Interpretation Reference Range Facility No Panel Informationon 06-24 Pure Tone Audiometry Audio indicated a moderate to severe sensorineural hearing loss in the right ear and a severe to profound sensorineural hearing loss in the left ear. [facility] my4oneone [facility] Taste Kitchencar e HGB A1C (GLYCO-HGB)on 2023 Glucose [Mass/Vol] 131 mg/dL Normal [facility] Comment on above: Performed By: #### H A1C, 64461-2, 2777-1, 3084-1, 2731-8, 75830-5 #### [facility] ([id number]) [address] [place] [address], [address] [place] [address] HbA1c (Bld) [Mass fraction] 6.2 % High 4.4-5.[address] [facility] Comment on above: Result Comment: NOTE ADA Guidelines Result HgbA1c Normal : less than 5.7 % Prediabetes : 5.7 % to 6.4 % Diabetes : > 6.4 % Use with caution in patients with abnormal hemoglobin variants as the half-life of red blood cells and in vivo glycation rates are affected. Performed By: #### H A1C, 35777-0, 2777-1, 3084-1, 2731-8, 28783-9 #### [facility] ([id number]) [address], [address] [place] [address] MAGNESIUMon 03-06-2024 Magnesium [Mass/Vol] 2.3 mg/dL Normal 1.8-2.[address] [facility] Comment on above: Performed By: #### H A1C, 42533-9, 2777-1, 3084-1, 2731-8, 95410-9 #### [facility] ([id number]) [address], [address] [place] [address] PHOSPHORUSon 03-06-2024 Phosphate [Mass/Vol] 4.2 mg/dL Normal 2.4-4.[address] [facility] Comment on above: Performed By: #### H A1C, 69350-3, 2777-1, 3084-1, 2731-8, 35282-4 #### [facility] ([id number]) [address], [address] [place] [address] Parathyrin.intact [Mass/Vol] on 03-06-2024 PTH INTACT 203 pg/mL High 12-[address] [facility] Comment on above: Performed By: #### H A1C, 67543-5, 2777-1, 3084-1, 2731-8, 92978-9 #### [facility] ([id number]) [address], [address] [place] [address] URIC ACIDon 03-06-2024 Urate [Mass/Vol] 8.6 mg/dL High 2.6-7.2 [facility] Comment on above: Performed By: #### H A1C, 98911-5, 2777-1, 3084-1, 2731-8, 51506-8 #### [facility] ([id number]) [address], [address] [place] [address] Vitamin D+Metabolites [Mass/ Vol]on 03-06-2024 VITAMIN D 25 HYD TOT 27.9 ng/mL Low 30-[address] [facility] Comment on above: Result Comment: Vitamin D status 25 [place] Vitamin D Deficiency <20 ng/mL Insufficiency 20-29 ng/mL Sufficiency 30-100 ng/mL Toxicity >100 ng/mL NOTE: A pediatric reference range has not been established by the caustic mixer of this kit. The [place] [employer] recommends a Vitamin D level of = or >20ng/mL in infants and children. Performed By: #### H A1C, 31287-7, 2777-1, 3084-1, 2731-8, 84404-6 #### [facility] ([id number]) [address], [address] [place] [address] Basic metabolic 2000 panelon 03-04-2024 Anion gap [Moles/Vol] 13 mmol/L 10 - 20 mmol/L [facility] Calcium [Mass/Vol] 9.2 mg/dL 8.6 - 10. 3 mg/dL [facility] Chloride [Moles/Vol] 106 mmol/L 98 - 107 mmol/L [facility] CO2 [Moles/Vol] 25 mmol/L 21 - 32 mmol/L [facility] Creatinine [Mass/Vol] 2.31 mg/dL High 0.50 - 1.30 mg/dL [facility] GFR/1.73 sq M.predicted among non-blacks MDRD (S/P/Bld) [Vol rate/Area] 26 mL/min/{1.73_m2} Low - PINF [facility] Comment on above: Calculations of katey mated GFR are performed using the 2020 CKD-EPI Study Refit equation without the race variable for the IDMS-Traceable creatinine methods. https://jasn.asnjournals.org/content//ASN.30031590 88 Glucose [Mass/Vol] 106 mg/dL High 74 - 99 mg/dL [facility] Interpretation and review of laboratory results Abnormal [facility] Potassium [Moles/Vol] 4.1 mmol/L 3.5 - 5.3 mmol/L [facility] Sodium [Moles/Vol] 140 mmol/L 136 - 145 mmol/L [facility] Urea nitrogen [Mass/Vol] 45 mg/dL High 6 - 23 mg/dL [facility] Anion gap [Moles/Vol] 13 mmol/L Normal 10-20 [facility] Comment on above: Performed By: #### 2 4321-2 #### CRYSTAL JURADO ([id number]) [facility]) [address] [place] [address] Calcium [Mass/Vol] 9.2 mg/dL Normal 8.6-10.3 [facility] Comment on above: Performed By: #### 2 4321-2 #### CRYSTAL JURADO ([id number]) [facility] ([facility]) [address] [place] [address] Chloride [Moles/Vol] 106 mmol/L Normal 98-107 [facility] Comment on above: Performed By: #### 2 4321-2 #### CRYSTAL JURADO ([id number]) [facility]) [address] [place] [address] CO2 [Moles/Vol] 25 mmol/L Normal 21-32 [facility] Comment on above: Performed By: #### 2 4321-2 #### CRYSTAL JURADO ([id number]) [facility]) [address] [place] [address] Creatinine [Mass/Vol] 2.31 mg/dL High 0.50-1.30 [facility] Comment on above: Performed By: #### 2 4321-2 #### CRYSTAL JURADO ([id number]) [facility]) [address] [place] [address] Glomerular filtration rate/1.73 sq M.predicted 26 mL/min/1.73m*2 Low >60 [facility] Comment on above: Result Comment: Calc ulations of estimated GFR are performed using the 2020 CKD-EPI Study Refit equation without the race variable for the IDMS-Traceable creatinine methods. https://jasn.asnjournals.org/content/early/ASN.89369799 88 Performed By: #### 2 4321-2 #### CRYSTAL JURADO ([id number]) [facility]) [address] [place] [address] Glucose [Mass/Vol] 106 mg/dL High 74-99 [facility] Comment on above: Performed By: #### 2 4321-2 #### CRYSTAL JURADO ([id number]) [facility]) [address] [place] [address] Potassium [Moles/Vol] 4.1 mmol/L Normal 3.5-5.3 [facility] Comment on above: Performed By: #### 2 4321-2 #### CRYSTAL JURADO ([id number]) [facility]) [address] [place] [address] Sodium [Moles/Vol] 140 mmol/L Normal 136-145 [facility] Comment on above: Performed By: #### 2 4321-2 #### CRYSTAL JURADO ([id number]) [facility]) [address] [place] [address] Urea nitrogen [Mass/Vol] 45 mg/dL High 6-23 [facility] Comment on above: Performed By: #### 2 4321-2 #### CRYSTAL JURADO ([id number]) [facility]) [address] [place] [address]82 CBC panel Auto (Bld)on 03-04 Erythrocyte distribution width (RBC) [Ratio] 14.9 % High 11.5 - 14.5 % [facility] Hematocrit (Bld) [Volume fraction] 38.8 % Low 41.0 - 52.0 % [facility] Hemoglobin (Bld) [Mass/Vol] 12.6 g/dL Low 13.5 - 17.5 g/dL [facility] Interpretation and review of laboratory results Abnormal [facility] MCH (RBC) [Entitic mass] 28.7 pg 26.0 - 34.0 pg [facility] MCHC (RBC) [Mass/Vol] 32.5 g/dL 32.0 - 36.0 g/dL [facility] MCV (RBC) [Entitic vol] 88 fL 80 - 100 fL [facility] Nucleated RBC/100 WBC (Bld) [Ratio] 0.0 % [facility] Platelets (Bld) [#/Vol] 185 10*3/uL [facility] RBC (Bld) [#/Vol] 4.39 10*6/uL Low [facility] WBC (Bld) [#/Vol] 7.3 10*3/uL [facility] Erythrocyte distribution width (RBC) [Ratio] 14.9 % High 11.5-14.5 [facility] Comment on above: Performed By: #### 5 8410-2 #### CRYSTAL JURADO ([id number]) [facility]) [address] [place] [address] Hematocrit (Bld) [Volume fraction] 38.8 % Low 41.0-52.0 [facility] Comment on above: Performed By: #### 5 8410-2 #### CRYSTAL JURADO ([id number]) [facility]) [address] [place] [address] Hemoglobin (Bld) [Mass/Vol] 12.6 g/dL Low 13.5-17.5 [facility] Comment on above: Performed By: #### 5 8410-2 #### CRYSTAL JUARDO ([id number]) [facility]) [address] [place] [address]83 MCH (RBC) [Entitic mass] 28.7 pg Normal 26.0-34.0 [facility] Comment on above: Performed By: #### 5 8410-2 #### CRYSTAL JURADO ([id number]) [facility] ([facility]) [address] [place] [address]393 MCHC (RBC) [Mass/Vol] 32.5 g/dL Normal 32.0-36.0 [facility] Comment on above: Performed By: #### 5 8410-2 #### CRYSTAL JURADO ([id number]) [facility]) [address] [place] [address]22 MCV (RBC) [Entitic vol] 88 fL Normal 80-100 [facility] Comment on above: Performed By: #### 5 8410-2 #### CRYSTAL JURADO ([id number]) [facility]) [address] [place] [address] 03565 Nucleated RBC/100 WBC (Bld) [Ratio] 0.0 /100 WBCs Normal 0.0-0.0 [facility] Comment on above: Performed By: #### 5 8410-2 #### CRYSTAL JURADO ([id number]) [facility]) [address] [place] [address]79 Platelets (Bld) [#/Vol] 185 x10*3/uL Normal 150-450 [facility] Comment on above: Performed By: #### 5 8410-2 #### CRYSTAL JURADO ([id number]) [facility]) [address] [place] [address] 12872 RBC (Bld) [#/Vol] 4.39 x10*6/uL Low 4.50-5.90 [facility] Comment on above: Performed By: #### 5 8410-2 #### CRYSTAL JURADO ([id number]) [facility]) [address] [place] [address]304 WBC (Bld) [#/Vol] 7.3 x10*3/uL Normal 4.4-11.3 [facility] Comment on above: Performed By: #### 5 8410-2 #### CRYSTAL JURADO ([id number]) [facility]) [address] [place] [address] 15784 ECG 12-LEADon 03-04-2024 ECG 12-LEAD Ventricular Rate 73 Atrial Rate 71 QRS Duration 142 Q-T Interval 588 QTC Calculation(Bazett) 647 R Cairo -27 T [place] 76 QRS Count 12 Q Onset 225 [...] aPTT Coag (PPP) [Time] 42 s High [facility] INR Coag (PPP) [Relative time] 2.3 {INR} High 0.9 - 1.1 [facility] Interpretation and review of laboratory results Abnormal [facility] PT Coag (PPP) [Time] 26.7 s High [facility] The APTT is no longe r used for monitoring Unfractionated Heparin Therapy. For monitoring Heparin Therapy, use the Heparin Assay. [facility] aPTT Coag (PPP) [Time] 42 s High 27-38 [facility] Comment on above: Order Comment: The A PTT is no longer used for monitoring Unfractionated Heparin Therapy. For monitoring Heparin Therapy, use the Heparin Assay. Performed By: #### 3 4529-8 #### CRYSTAL JURADO ([id number]) [facility] ([facility]) [address] [place] [address]955 INR Coag (PPP) [Relative time] 2.3 High 0.9-1.1 [facility] Comment on above: Order Comment: The A PTT is no longer used for monitoring Unfractionated Heparin Therapy. For monitoring Heparin Therapy, use the Heparin Assay. Performed By: #### 3 4529-8 #### CRYSTAL JURADO ([id number]) [facility] ([facility]) [address] [place] [address] 27825 PT Coag (PPP) [Time] 26.7 s High 9.8-12.8 [facility] Comment on above: Order Comment: The A PTT is no longer used for monitoring Unfractionated Heparin Therapy. For monitoring Heparin Therapy, use the Heparin Assay. Performed By: #### 3 4529-8 #### CRYSTAL JURADO ([id number]) [facility] ([facility]) [address] [place] [address] Blood type and Indirect anti body screen panel (Bld)on 02-26-2024 ABO group Nom (Bld) O [facility] Blood group antibody screen Ql Negative [facility] D Ag Ql (Bld) Positive [facility] Comment on above: 2nd ABO test require d. Order and Collect VERAB [facility] ABO group Nom (Bld) O Normal [facility] Comment on above: Order Comment: Speci men for compatibility testing requires full first and last name, MRN, , date, time of collection, and metal container maker/trolley collector's signature on tube(s) or it will be rejected. Please collect 1 lavender top-KEDTA OR 1 pink top-KEDTA and sign, date and time with the patient's full first and last name, MRN and . Performed By: #### 3 4532-2 #### CRYSTAL JURADO ([id number]) [facility] [address] [place] [address] Blood group antibody screen Ql Negative [facility] Comment on above: Order Comment: Speci men for compatibility testing requires full first and last name, MRN, , date, time of collection, and metal container maker/trolley collector's signature on tube(s) or it will be rejected. Please collect 1 lavender top-KEDTA OR 1 pink top-KEDTA and sign, date and time with the patient's full first and last name, MRN and . Performed By: #### 3 4532-2 #### CRYSTAL LARA RIO YANET ([id number]) [facility] [address] [place] [address] D Ag Ql (Bld) Positive [facility] Comment on above: Order Comment: Speci men for compatibility testing requires full first and last name, MRN, , date, time of collection, and metal container maker/trolley collector's signature on tube(s) or it will be rejected. Please collect 1 lavender top-KEDTA OR 1 pink top-KEDTA and sign, date and time with the patient's full first and last name, MRN and . Result Comment: 2nd ABO test required. Order and Collect VERAB Performed By: #### 3 4532-2 #### CRYSTAL JURADO ([id number]) [facility] ([facility]) [address] [place] [address] ECG 12 Leadon 02-26-2024 Atrial paced, ventricular sensed rhythm, right bundle branch block, left anterior fascicular block, HR 75bpm [facility] Work Phone: COMPREHENSIVE METABOLIC PANE Donato 08-06-2023 Albumin [Mass/Vol] 4.2 g/dL Normal 3.2-5.3 [facility] Comment on above: Performed By: #### C RHETT, 88049-1, 3016-3 #### [facility] ([id number]) [address], [address] [place] [address] ALP [Catalytic activity/Vol] 77 U/L Normal 39-[address] [facility] Comment on above: Performed By: #### C RHETT, 70977-6, 3016-3 #### [facility] ([id number]) [address], [address] [place] [address] ALT [Catalytic activity/Vol] 11 U/L Normal 0-[address] [facility] Comment on above: Performed By: #### C RHETT, 37218-6, 3016-3 #### [facility] ([id number]) [address], [address] [place] [address] Anion gap [Moles/Vol] 8 mmol/L Normal 5-[address] [facility] Comment on above: Performed By: #### C RHETT, 23863-6, 3015-3 #### [facility] ([id number]) [address], [address] [place] [address] AST [Catalytic activity/Vol] 19 U/L Normal 0-[address] [facility] Comment on above: Performed By: #### Gorge DELANEY, 76923-9, 6-3 #### [facility] ([id number]) [address], [address] [place] [address] Bilirubin [Mass/Vol] 0.5 mg/dL Normal 0.3-1.[address] [facility] Comment on above: Performed By: #### C RHETT, 02389-9, 3015-3 #### [facility] ([id number]) [address], [address] [place] [address] Calcium [Mass/Vol] 9.1 mg/dL Normal 8.5-10.5 [facility] Comment on above: Performed By: #### C RHETT, 53508-3, 3015-3 #### [facility] ([id number]) [address], [address] [place] [address] Chloride [Moles/Vol] 106 mmol/L Normal 98-[address] [facility] Comment on above: Performed By: #### Gorge DELANEY, 59082-6, 3015-3 #### [facility] ([id number]) [address], [address] [place] [address] CO2 [Moles/Vol] 26 mmol/L Normal 22-[address] [facility] Comment on above: Performed By: #### Gorge DELANEY, 70960-0, 6-3 #### [facility] ([id number]) [address], [address] [place] [address] Creatinine [Mass/Vol] 2.12 mg/dL High 0.60-1.[address] [facility] Comment on above: Result Comment: METH OD TRACEABLE TO IDMS STANDARD Performed By: #### Gorge DELANEY, 12025-3, 3015-3 #### [facility] ([id number]) [address], [address] [place] [address] GFR/1.73 sq M.predicted among non-blacks MDRD (S/P/Bld) [Vol rate/Area] 29 mL/min/{1.73_m2} Low >[address] [facility] Comment on above: Result Comment: Reported eGFR is based on the CKD-EPI 2020 equation that does not use a race coefficient. Performed By: #### Gorge DELANEY, 11313-4, 3015- #### [facility] ([id number]) [address], [address] [place] [address] Glucose [Mass/Vol] 113 mg/dL High 65-99 [facility] Comment on above: Performed By: #### oGrge DELANEY, , 3015- #### [facility] ([id number]) [address], [address] [place] [address] Potassium [Moles/Vol] 4.8 mmol/L Normal 3.5-5.[address] [facility] Comment on above: Performed By: #### Gorge DELANEY, , 3 #### [facility] ([id number]) [address], [address] [place] [address] Protein [Mass/Vol] 7.0 g/dL Normal 6.0-8.0 [facility] Comment on above: Performed By: #### Gorge DELANEY, 70654-7, 3015- #### [facility] ([id number]) [address], [address] [place] [address] Sodium [Moles/Vol] 140 mmol/L Normal 134-146 [facility] Comment on above: Performed By: #### Gorge DELANEY, 65716-9, 3015-3 #### [facility] ([id number]) [address], [address] [place] [address] Urea nitrogen [Mass/Vol] 24 mg/dL Normal 5-[address] [facility] Comment on above: Performed By: #### C , 37610-6, 3016-3 #### [facility] ([id number]) [address], [address] [place] [address] Comprehensive metabolic pane donato 08-06-2023 Albumin [Mass/Vol] 4.2 g/dL 3.2 - 5.3 g/dL [facility] ALP [Catalytic activity/Vol] 77 U/L 39 - 130 U/L [facility] ALT No additional P-5'-P [Catalytic activity/Vol] 11 U/L 0 - 40 U/L [facility] Anion gap [Moles/Vol] 8 mmol/L 5 - 15 mmol/L [facility] AST [Catalytic activity/Vol] 19 U/L 0 - 41 U/L [facility] Bilirubin [Mass/Vol] 0.5 mg/dL 0.3 - 1.2 mg/dL [facility] Calcium [Mass/Vol] 9.1 mg/dL 8.5 - 10. 5 mg/dL [facility] Chloride [Moles/Vol] 106 mmol/L 98 - 109 mmol/L [facility] CO2 [Moles/Vol] 26 mmol/L 22 - 32 mmol/L [facility] Creatinine [Mass/Vol] 2.12 mg/dL High 0.60 - 1.30 mg/dL [facility] Comment on above: METHOD TRACEABLE TO IDOK STANDARD eGFR (CKD-EPI)non-race dependent 29 Low - PINF [facility] Comment on above: Reported eGFR is based on the CKD-EPI 202 equation that does not use a race coefficient. Glucose [Mass/Vol] 113 mg/dL High 65 - 99 mg/dL [facility] Potassium [Moles/Vol] 4.8 mmol/L 3.5 - 5.0 mmol/L [facility] Protein [Mass/Vol] 7.0 g/dL 6.0 - 8.0 g/dL [facility] Sodium [Moles/Vol] 140 mmol/L 134 - 146 mmol/L [facility] Urea nitrogen [Mass/Vol] 24 mg/dL 5 - 27 mg/dL [facility] HGB A1C (GLYCO-HGB)on 2023 Glucose [Mass/Vol] 140 mg/dL Normal [facility] Comment on above: Performed By: #### Gorge DELANEY, 28907-4, 3016-3 #### [facility] ([id number]) [address], [address] [place] [address] HbA1c (Bld) [Mass fraction] 6.5 % High 4.4-5.[address] [facility] Comment on above: Result Comment: NOTE ADA Guidelines Result HgbA1c Normal : less than 5.7 % Prediabetes : 5.7 % to 6.4 % Diabetes : > 6.4 % Use with caution in patients with abnormal hemoglobin variants as the half-life of red blood cells and in vivo glycation rates are affected. Performed By: #### Gorge DELANEY, 71651-2, 3016-3 #### [facility] ([id number]) [address], [address] [place] [address] Hemoglobin A1con 08-06-2023 Average glucose Estimated from glycated hemoglobin (Bld) [Mass/Vol] 140 mg/dL [facility] HbA1c (Bld) [Mass fraction] 6.5 % High 4.4 - 5.6 % [facility] Comment on above: NOTE ADA Guidelines Result HgbA1c Normal : less than 5.7 % Prediabetes : 5.7 % to 6.4 % Diabetes : > 6.4 % Use with caution in patients with abnormal hemoglobin variants as the half-life of red blood cells and in vivo glycation rates are affected. Interpretation and review of laboratory results Abnormal [facility] Lipid 1996 panelon Cholesterol [Mass/Vol] 91 mg/dL Low 150 - 200 mg/dL [facility] Cholesterol in HDL [Mass/Vol] 39 mg/dL Low 39 - PINF mg/dL [facility] Comment on above: HDL <40 mg/dL - High Risk HDL > or = 40mg/dL- Desirable HDL >60 mg/dL - Negative Risk Cholesterol in LDL [Mass/Vol] 18 mg/dL NINF - 130 mg/dL [facility] Comment on above: LDL <100 mg/dL - Desirable LDL >160 mg/dL - High Risk Cholesterol in VLDL [Mass/Vol] 34 mg/dL High 0 - 30 mg/dL [facility] Cholesterol.total/C holesterol in HDL [Mass ratio] 2.3 {ratio} 1.0 - 5.0 [facility] Triglyceride [Mass/Vol] 168 mg/dL High 27 - 150 mg/dL [facility] Cholesterol [Mass/Vol] 91 mg/dL Low 150-[address] [facility] Comment on above: Performed By: [place], [address]-1, 3016-3 #### [facility] ([id number]) [address], [address] [place] [address] Cholesterol in HDL [Mass/Vol] 39 mg/dL Low >[address] [facility] Comment on above: Result Comment: HDL <40 mg/dL - High Risk HDL > or = 40mg/dL- Desirable HDL >60 mg/dL - Negative Risk Performed By: ###[place], [address]-6, 3016-3 #### [facility] ([id number]) [address], [address] [place] [address] Cholesterol in LDL [Mass/Vol] 18 mg/dL Normal <[address] [facility] Comment on above: Result Comment: LDL <100 mg/dL - Desirable LDL >160 mg/dL - High Risk Performed By: #### Gorge DELANEY, 83541-1, 6-3 #### [facility] ([id number]) [address], [address] [address] Cholesterol in VLDL [Mass/Vol] 34 mg/dL High 0-[address] [facility] Comment on above: Performed By: #### Gorge DELANEY, 12711-2, 6-3 #### [facility] ([id number]) [address] [address] [place] [address] CHOLESTEROL:HDL 2.3 Normal 1.0-5.[address] [facility] Comment on above: Performed By: #### Gorge DELANEY, 59189-0, 6-3 #### [facility] ([id number]) [address], [facility] [address] [place] [address] Triglyceride [Mass/Vol] 168 mg/dL High 27-[address] [facility] Comment on above: Performed By: #### Gorge DELANEY, 38599-4, 6-3 #### [facility] ([id number]) [address], [address] [address] No Panel Informationon 08-05 Interpretation and review of laboratory results Abnormal [facility] TSHon 08-06-2023 TSH Qn 3.12 m[IU]/L [facility] TSH Qnon 08-06-2023 [facility] TSH 3.12 uIU/mL Normal 0.49-4.[address] [facility] Comment on above: Performed By: #### Gorge DELANEY, 70584-9, 6-3 #### [facility] ([id number]) [address] [place] [address] Protime & INRon 07-18-2023 External Inr 2.02 [facility] External Protime 20.6 [facility] Office Visit (Cardiology)on 01-12-2023 Follow-up visit [...] a smoker Tobacco Use Screening; Status:Complete; Done: [id number] Ventricular tachycardia IO EKG Electrocardiogram- 12 Lead; Status:Complete; Done: [id number] Patient Instructions Please bring all medicines, vitamins, [...] negative for complaint. Vitals Vital Signs Recorded: [id number] 02:17PM Heart Rate72, Apical Xyohxddd936, RUE, Sitting Bececdwsg38, RUE, Sitting Height5 ft 9 in Cvbbjd150 lb BMI Bfftivdrws99.78 kg/m2 BSA Calculated1.88 Tobacco Useb) No Falls [...] Jan 13 2023 2:45PM EST (Author) Normal [facility] Tobacco Screening.on 023 Fall risk assessment a) No falls within the last year [facility] Diavibe 250 DO Work Phone: Tobacco use status CPHS b) No [facility] XradiaWoodruff 250 DO Work Phone: PROTIMEon 10-17-2022 INR Coag (PPP) [Relative time] 2.38 {INR} Normal [facility] Comment on above: Performed By: #### P T #### [facility] [address] [place] [address] Dr. Sariah Boyle INR GUIDELINES SEE BELOW Normal [facility] Comment on above: Result Comment: NHUNG RED INR: 2.0 - 3.0 CONDITIONS NOT LISTED BELOW 2.5 - 3.5 FOR PROSTHETIC HEART VALVE REPLACEMENT 2.5 - 3.5 RECURRENT THROMBOSIS Performed By: #### P T #### [facility] [address] [address] [address] Sariah Boyle PT Coag (PPP) [Time] 24.0 s Critically high 9.0-11.6 [facility] Comment on above: Performed By: #### P T #### [facility] [address] [place] [address] Dr. Sariah Boyle PROTIMEon 09-15-2022 INR Coag (PPP) [Relative time] 2.18 {INR} Normal [facility] Comment on above: Performed By: #### P T #### [facility] [address] [address] [address] Sariah Boyle INR GUIDELINES SEE BELOW Normal [facility] Comment on above: Result Comment: NHUNG RED INR: 2.0 - 3.0 CONDITIONS NOT LISTED BELOW 2.5 - 3.5 FOR PROSTHETIC HEART VALVE REPLACEMENT 2.5 - 3.5 RECURRENT THROMBOSIS Performed By: #### P T #### [facility] [address] [address] [address] Sariah Boyle PT Coag (PPP) [Time] 22.1 s Critically high 9.0-11.6 [facility] Comment on above: Performed By: #### P T #### [facility] [address] [place] [address] Dr. Sariah Boyle PROTIMEon 08-15-2022 INR Coag (PPP) [Relative time] 2.44 {INR} Normal [facility] Comment on above: Performed By: #### P T #### [facility] [address] [place] [address] Dr. Sariah Boyle INR GUIDELINES SEE BELOW Normal [facility] Comment on above: Result Comment: NHUNG RED INR: 2.0 - 3.0 CONDITIONS NOT LISTED BELOW 2.5 - 3.5 FOR PROSTHETIC HEART VALVE REPLACEMENT 2.5 - 3.5 RECURRENT THROMBOSIS Performed By: #### P T #### [facility] [address] [place] [address] Dr. Sariah Boyle PT Coag (PPP) [Time] 24.6 s Critically high 9.0-11.6 [facility] Comment on above: Performed By: #### P T #### [facility] [address] [place] [address] Dr. Sariah Boyle PROTIMEon 07-18-2022 INR Coag (PPP) [Relative time] 2.33 {INR} Normal [facility] Comment on above: Performed By: #### P T #### [facility] [address] [place] [address] Dr. Sariah Boyle INR GUIDELINES SEE BELOW Normal [facility] Comment on above: Result Comment: NHUNG RED INR: 2.0 - 3.0 CONDITIONS NOT LISTED BELOW 2.5 - 3.5 FOR PROSTHETIC HEART VALVE REPLACEMENT 2.5 - 3.5 RECURRENT THROMBOSIS Performed By: #### P T #### [facility] [address] [place], [place] [address] Dr. Sariah Boyle PT Coag (PPP) [Time] 23.5 s Critically high 9.0-11.6 [facility] Comment on above: Performed By: #### P T #### [facility] [address] [place], [place] [address] Dr. Sariah Boyle Office Visit (Cardiology)on 07-14-2022 [...] negative for complaint. Vitals Vital Signs Recorded: [id number] 03:41PM Heart Rate80, L Radial Yrpzbuss902, LUE, Sitting Zyxbddpbw28, LUE, Sitting Height5 ft 9 in Zqmmfb458 lb BMI Rtxqyfrevd87.92 kg/m2 BSA Calculated1.89 Tobacco Useb) No PHQ-2 [...] Electronically si (more content not included)... Normal [facility] Tobacco Screening.on 023 Adult depression screening assessment No [facility] Diavibe 250 DO Work Phone: Fall risk assessment a) No falls within the last year [facility] Diavibe 250 DO Work Phone: Tobacco use status CP b) No [facility] Diavibe 250 DO Work Phone: PROTIMEon 07-04-2022 INR Coag (PPP) [Relative time] 1.91 {INR} Normal [facility] Comment on above: Performed By: #### P T #### [facility] [address] [address] [address] Sariah Boyle INR GUIDELINES SEE BELOW Normal [facility] Comment on above: Result Comment: NHUNG RED INR: 2.0 - 3.0 CONDITIONS NOT LISTED BELOW 2.5 - 3.5 FOR PROSTHETIC HEART VALVE REPLACEMENT 2.5 - 3.5 RECURRENT THROMBOSIS Performed By: #### P T #### [facility] [address] [place] [address] Dr. Sariah Boyle PT Coag (PPP) [Time] 19.5 s Critically high 9.0-11.6 [facility] Comment on above: Performed By: #### P T #### [facility] [address] [place] [address] Dr. Sariah Boyle No Panel Informationon 06-[address] [address] DO Work Phone: PROTIMEon 06-07-2022 INR Coag (PPP) [Relative time] 1.44 {INR} Normal [facility] Comment on above: Performed By: #### P T #### [facility] [address] [place] [address] Dr. Sariah Boyle INR GUIDELINES SEE BELOW Normal [facility] Comment on above: Result Comment: NHUNG RED INR: 2.0 - 3.0 CONDITIONS NOT LISTED BELOW 2.5 - 3.5 FOR PROSTHETIC HEART VALVE REPLACEMENT 2.5 - 3.5 RECURRENT THROMBOSIS Performed By: #### P T #### [facility] [address] [place] [address] Dr. Sariah Boyle PT Coag (PPP) [Time] 15.0 s Critically high 9.0-11.6 [facility] Comment on above: Performed By: #### P T #### [facility] [address] [place] [address] Dr. Sariah Boyle No Panel Informationon 06-[address] [place] [address] DO Work Phone: PROTIMEon 05-08-2022 INR Coag (PPP) [Relative time] 2.06 {INR} Normal [facility] Comment on above: Performed By: #### P T #### [facility] [address] [place] [address] Dr. Sariah Boyle INR GUIDELINES SEE BELOW Normal [facility] Comment on above: Result Comment: NHUNG RED INR: 2.0 - 3.0 CONDITIONS NOT LISTED BELOW 2.5 - 3.5 FOR PROSTHETIC HEART VALVE REPLACEMENT 2.5 - 3.5 RECURRENT THROMBOSIS Performed By: #### P T #### [facility] [address] [address] [address] Sariah Boyle PT Coag (PPP) [Time] 21.2 s Critically high 9.0-11.6 [facility] Comment on above: Performed By: #### P T #### [facility] [address] [address] [address] Sariah Boyle PROTIMEon 04-07-2022 INR Coag (PPP) [Relative time] 3.37 {INR} Normal [facility] Comment on above: Performed By: #### P T #### [facility] [address] [place] [address] Dr. Sariah Boyle INR GUIDELINES SEE BELOW Normal [facility] Comment on above: Result Comment: NHUNG RED INR: 2.0 - 3.0 CONDITIONS NOT LISTED BELOW 2.5 - 3.5 FOR PROSTHETIC HEART VALVE REPLACEMENT 2.5 - 3.5 RECURRENT THROMBOSIS Performed By: #### P T #### [facility] [address] [address] [address] Sariah Boyle PT Coag (PPP) [Time] 33.6 s Critically high 9.0-11.6 [facility] Comment on above: Performed By: #### P T #### [facility] [address] [place] [address] Dr. Sariah Boyle Initial Visit (Otolaryngolog y)on [...] melanoma of the scalp History of Present Ddwfvfm64-rrvk-ldf man referred by Dr. Kumari for management [...] Recorded: 03Apr2022 02:27PM Height5 ft 9 in Sogygf721 lb BMI Yketvoqgve74.92 kg/m2 BSA Calculated1.89 Tobacco Useb) No Falls [...] Apr 19 2022 6:13AM EST (Author) [facility] Scre[facility].on 022 Fall risk assessment a) No falls within the last year [facility] Work Phone: Tobacco use status CPHS b) No [facility] Work Phone: No Panel Informationon 03-23 [facility] Work Phone: PROTIMEon 03-06-2022 INR Coag (PPP) [Relative time] 2.08 {INR} Normal [facility] Comment on above: Performed By: #### P T #### [facility] [address] [place] [address] Dr. Sariah Boyle INR GUIDELINES SEE BELOW Normal [facility] Comment on above: Result Comment: NHUNG RED INR: 2.0 - 3.0 CONDITIONS NOT LISTED BELOW 2.5 - 3.5 FOR PROSTHETIC HEART VALVE REPLACEMENT 2.5 - 3.5 RECURRENT THROMBOSIS Performed By: #### P T #### [facility] [address] [place] [address] Dr. Sariah Boyle PT Coag (PPP) [Time] 21.4 s Critically high 9.0-11.6 [facility] Comment on above: Performed By: #### P T #### [facility] [address] [place] [address] Dr. Sariah Boyle PROTIMEon 02-03-2022 INR Coag (PPP) [Relative time] 1.83 {INR} Normal [facility] Comment on above: Performed By: #### P T #### [facility] [address] [place] [address] Dr. Sariah Boyle INR GUIDELINES SEE BELOW Normal [facility] Comment on above: Result Comment: NHUNG RED INR: 2.0 - 3.0 CONDITIONS NOT LISTED BELOW 2.5 - 3.5 FOR PROSTHETIC HEART VALVE REPLACEMENT 2.5 - 3.5 RECURRENT THROMBOSIS Performed By: #### P T #### [facility] [address] [address] [address] Sariah Boyle PT Coag (PPP) [Time] 19.0 s Critically high 9.0-11.6 [facility] Comment on above: Performed By: #### P T #### [facility] [address] [address] [address] Sariah Boyle PROTIMEon 01-02-2022 INR Coag (PPP) [Relative time] 2.05 {INR} Normal [facility] Comment on above: Performed By: #### P T #### [facility] [address] [address] [address] Sariah Boyle INR GUIDELINES SEE BELOW Normal [facility] Comment on above: Result Comment: NHUNG RED INR: 2.0 - 3.0 CONDITIONS NOT LISTED BELOW 2.5 - 3.5 FOR PROSTHETIC HEART VALVE REPLACEMENT 2.5 - 3.5 RECURRENT THROMBOSIS Performed By: #### P T #### [facility] [address] [address] [address] Sariah Boyle PT Coag (PPP) [Time] 21.1 s Critically high 9.0-11.6 [facility] Comment on above: Performed By: #### P T #### [facility] [address] [place] [address] Dr. Sariah Boyle Tobacco Screening.on 022 Adult depression screening assessment No [facility]-[employer] 250 DO Work Phone: Fall risk assessment a) No falls within the last year [facility] Work Phone: Tobacco use status CPHS b) No [facility] 250 DO Work Phone: PROTIMEon 12-02-2021 INR Coag (PPP) [Relative time] 2.22 {INR} Normal [facility] Comment on above: Performed By: #### P T #### [facility] [address] [address] [address] Sariah Boyle INR GUIDELINES SEE BELOW Normal [facility] Comment on above: Result Comment: NHUNG RED INR: 2.0 - 3.0 CONDITIONS NOT LISTED BELOW 2.5 - 3.5 FOR PROSTHETIC HEART VALVE REPLACEMENT 2.5 - 3.5 RECURRENT THROMBOSIS Performed By: #### P T #### [facility] [address] [place] [address] Dr. Sariah Boyle PT Coag (PPP) [Time] 22.8 s Critically high 9.0-11.6 [facility] Comment on above: Performed By: #### P T #### [facility] [address] [place] [address] Dr. Sariah Boyle PROTIMEon 11-18-2021 INR Coag (PPP) [Relative time] 1.95 {INR} Normal [facility] Comment on above: Performed By: #### P T #### [facility] [address] [place] [address] Dr. Sariah Boyle INR GUIDELINES SEE BELOW Normal [facility] Comment on above: Result Comment: NHUNG RED INR: 2.0 - 3.0 CONDITIONS NOT LISTED BELOW 2.5 - 3.5 FOR PROSTHETIC HEART VALVE REPLACEMENT 2.5 - 3.5 RECURRENT THROMBOSIS Performed By: #### P T #### [facility] [address] [place] [address] Dr. Sariah Boyle PT Coag (PPP) [Time] 20.2 s Critically high 9.0-11.6 [facility] Comment on above: Performed By: #### P T #### [facility] [address] [place] [address] Dr. Sariah Boyle COMPREHENSIVE METABOLIC PANE Donato 08-23-2021 Albumin [Mass/Vol] 4.1 g/dL Normal 3.6-5.1 [facility] Comment on above: Performed By: #### 1 0231, 0850 #### [facility] [address] [address] [place] Supervisor: Jose Juan Arriola MD Albumin/Globulin [Mass ratio] 1.6 {ratio} Normal 1.0-2.5 [facility] Comment on above: Performed By: #### 1 0231, 0 #### [facility] of [place] [address] [place] Supervisor: Jose Juan Arriola MD ALP [Catalytic activity/Vol] 61 U/L Normal 35-144 [facility] Comment on above: Performed By: #### 1 0231, 7600 #### [facility] [place] [address] [place] Supervisor: Jose Juan Arriola MD ALT [Catalytic activity/Vol] 9 U/L Normal 9-46 [facility] Comment on above: Performed By: #### 1 023, 7600 #### [facility] [place] [address] [place] Supervisor: Jose Juan Arriola MD AST [Catalytic activity/Vol] 14 U/L Normal 10-35 [facility] Comment on above: Performed By: #### 1 023, 7600 #### [facility] [place] [address] [place] Supervisor: Jose Juan Arriola MD Bilirubin [Mass/Vol] 0.6 mg/dL Normal 0.2-1.2 [facility] Comment on above: Performed By: #### 1 0231, 7600 #### [facility] [place] [address] [place] Supervisor: Jose Juan Arriola MD Calcium [Mass/Vol] 9.1 mg/dL Normal 8.6-10.3 [facility] Comment on above: Performed By: #### 1 0231, 7600 #### [facility] [place] [address] [place] Supervisor: Jose Juan Arriola MD Chloride [Moles/Vol] 109 mmol/L Normal 98-110 [facility] Comment on above: Performed By: #### 1 0231, 7600 #### [facility] [place] [address] [place] Supervisor: Jose Juan Arriola MD CO2 [Moles/Vol] 26 mmol/L Normal 20-32 [facility] Comment on above: Performed By: #### 1 0231, 7600 #### [facility] [address], [address] [place] [address] [employer] Supervisor: Jose Juan Arriola MD Creatinine [Mass/Vol] 2.15 mg/dL High 0.70-1.11 [facility] Comment on above: Result Comment: For patients >49 years of age, the reference limit for Creatinine is approximately 13% higher for people identified as -[place]. Performed By: #### 1 230, 7600 #### [facility] [address], [address] [place] [address] [employer] Supervisor: Jose Juan Arriola MD eGFR NON-AFR. PRYDEINIG 27 mL/min/1.73m2 Low > OR = 60 [facility] Comment on above: Performed By: #### 1 230, 7600 #### [facility] [place] [address] [employer] Supervisor: Jose Juan Arriola MD GFR/1.73 sq M.predicted among blacks MDRD (S/P/Bld) [Vol rate/Area] 31 mL/min/{1.73_m2} Low > OR = 60 [facility] Comment on above: Performed By: #### 1 230, 7600 #### [facility] [place] [address] [place] Supervisor: Jose Juan Arriola MD Globulin (S) [Mass/Vol] 2.5 g/dL Normal 1.9-3.7 [facility] Comment on above: Performed By: #### 1 230, 7600 #### [facility] [place] [address] [place] Supervisor: Jose Juan Arriola MD Glucose [Mass/Vol] 93 mg/dL Normal 65-99 [facility] Comment on above: Result Comment: Fasting reference interval Performed By: #### 1 230, 7600 #### [facility] [place] [address] [place] Supervisor: Jose Juan Arriola MD Potassium [Moles/Vol] 4.7 mmol/L Normal 3.5-5.3 [facility] Comment on above: Performed By: #### 1 0231, 7600 #### [facility] of [address], [address] [place] [address] [employer] Supervisor: Jose Juan Arriola MD Protein [Mass/Vol] 6.6 g/dL Normal 6.1-8.1 [facility] Comment on above: Performed By: #### 1 0231, 7600 #### [facility] of [address], [address] [place] [address] [employer] Supervisor: Jose Juan Arriola MD Sodium [Moles/Vol] 142 mmol/L Normal 135-146 [facility] Comment on above: Performed By: #### 1 0231, 7600 #### [facility] [place] [address] [place] Supervisor: Jose Juan Arriola MD Urea nitrogen [Mass/Vol] 31 mg/dL High 7-25 [facility] Comment on above: Performed By: #### 1 023, 7600 #### [facility] [place] [address] [place] Supervisor: Jose Juan Arriola MD Urea nitrogen/Creatinine [Mass ratio] 14 mg/mg Normal 6-22 [facility] Comment on above: Performed By: #### 1 023, 7600 #### [facility] [place] [address] [place] Supervisor: Jose Juan Arriola MD LIPID PANEL, [facility] 0 Cholesterol [Mass/Vol] 101 mg/dL Normal <200 [facility] Comment on above: Order Comment: FASTI NG:YES FASTING: YES Performed By: #### 1 0231, 7600 #### [facility] [place] [address] [address] Supervisor: Jose Juan Arriola MD Cholesterol in HDL [Mass/Vol] 40 mg/dL Normal > OR = 40 [facility] Comment on above: Order Comment: FASTI NG:YES FASTING: YES Performed By: #### 1 0231, 7600 #### [facility] [place] [address] [address] Supervisor: Jose Juan Arriola MD Cholesterol in LDL [...] LDL-C. Phillip SS et al. MERYL. 2013;310(19): 7073-8265 (http://education.Publish2.Antenova/faq/ROZ300) Performed By: #### 1 023, 0780 #### [facility] [place] [address] [address] Supervisor: Jose Juan Arriola MD Cholesterol.total/C holesterol in HDL [Mass ratio] 2.5 {ratio} Normal <5.0 [facility] Comment on above: Order Comment: FASTI NG:YES FASTING: YES Performed By: #### 1 023, 6730 #### [facility] [place] [address] [address] Supervisor: Jose Juan Arriola MD NON HDL CHOLESTEROL 61 mg/dL (calc) Normal <130 [facility] Comment on above: Order Comment: FASTI NG:YES FASTING: YES Result Comment: For patients with diabetes plus 1 major ASCVD risk factor, treating to a non-HDL-C goal of <100 mg/dL (LDL-C of <70 mg/dL) is considered a therapeutic option. Performed By: #### 1 0231, 7600 #### [facility] [place] [address] [address] Supervisor: Jose Juan Arriola MD Triglyceride [Mass/Vol] 127 mg/dL Normal <150 [facility] Comment on above: Order Comment: FASTI NG:YES FASTING: YES Performed By: #### 1 0231, 7600 #### [facility] [place] [address] [address] Supervisor: Jose Juan Arriola MD Tobacco Screening.on 021 Fall risk assessment a) No falls within the last year [facility] [address] DO Work Phone: Tobacco use status [facility] b) No [facility] DO Work Phone: B TYPE NATRIURETIC PEPTIDE ( BNP)on 11-03-2020 B TYPE NATRIURETIC PEPTIDE (BNP) Normal [facility] Comment on above: Result Comment: FROZ EN EDTA PLASMA IS REQUIRED TEST NOT PERFORMED No suitable specimen received. Please review the test requirements at [email or web address] Performed By: #### 9 05, 01079, 55293, 6399, 718, 899, 622, 21267, 69342 #### [facility] [place] [address] [address] Supervisor: Jose Juan Arriola MD CBC (INCLUDES DIFF/PLT)on Basophils (Bld) [#/Vol] 0.071 10*3/uL Normal 0-200 [facility] Comment on above: Performed By: #### 9 05, 33744, 95953, 6399, 718, 899, 622, 77291, 83516 #### [facility] [place] [address] [address] Supervisor: Jose Juan Arriola MD Basophils/100 WBC (Bld) 1.0 % Normal [facility] Comment on above: Performed By: #### 9 05, 15809, 50142, 6399, 718, 899, 622, 07070, 31504 #### [facility] [place] [address] [address] Supervisor: Jose Juan Arriola MD Eosinophils (Bld) [#/Vol] 0.099 10*3/uL Normal 15-500 [facility] Comment on above: Performed By: #### 9 05, 83032, 79585, 6399, 718, 899, 622, 96142, 15425 #### [facility] [place] [address] [address] Supervisor: Jose Juan Arriola MD Eosinophils/100 WBC (Bld) 1.4 % Normal [facility] Comment on above: Performed By: #### 9 05, 58398, 22911, 6399, 718, 899, 622, 76273, 80010 #### [facility] [place] [address] [address] Supervisor: Jose Juan Arriola MD Erythrocyte distribution width (RBC) [Ratio] 14.4 % Normal 11.0-15.0 [facility] Comment on above: Performed By: #### 9 05, 59881, 74485, 6399, 718, 899, 622, 55230, 44446 #### [facility] [place] [address] [address] Supervisor: Jose Juan Arriola MD Hematocrit (Bld) [Volume fraction] 42.7 % Normal 38.5-50.0 [facility] Comment on above: Performed By: #### 9 05, 60567, 18036, 6399, 718, 899, 622, 69760, 96419 #### [facility] [place] [address] [address] Supervisor: Jose Juan Arriola MD Hemoglobin (Bld) [Mass/Vol] 13.7 g/dL Normal 13.2-17.1 [facility] Comment on above: Performed By: #### 9 05, 26290, 96341, 6399, 718, 899, 622, 04799, 60696 #### [facility] [place] [address] [address] Supervisor: Jose Juan Arriola MD Lymphocytes (Bld) [#/Vol] 1.512 10*3/uL Normal 850-3900 [facility] Comment on above: Performed By: #### 9 05, 06465, 57230, 6399, 718, 899, 622, 55428, 81705 #### [facility] [place] [address] [address] Supervisor: Jose Juan Arriola MD Lymphocytes/100 WBC (Bld) 21.3 % Normal [facility] Comment on above: Performed By: #### 9 05, 82334, 97199, 6399, 718, 899, 622, 76877, 85481 #### [facility] [place] [address] [address] Supervisor: Jose Juan Arriola MD MCH (RBC) [Entitic mass] 28.5 pg Normal 27.0-33.0 [facility] Comment on above: Performed By: #### 9 05, 53437, 75321, 6399, 718, 899, 622, 96480, 16308 #### [facility] [place] [address] [address] Supervisor: Jose Juan Arriola MD MCHC (RBC) [Mass/Vol] 32.1 g/dL Normal 32.0-36.0 [facility] Comment on above: Performed By: #### 9 05, 64037, 26131, 6399, 718, 899, 622, 57099, 79804 #### [facility] [place] [address] [address] Supervisor: Jose Juan Arriola MD MCV (RBC) [Entitic vol] 89.0 fL Normal 80.0-100.0 [facility] Comment on above: Performed By: #### 9 05, 27281, 07157, 6399, 718, 899, 622, 06809, 11973 #### [facility] [place] [address] [address] Supervisor: Jose Juan Arriola MD Monocytes (Bld) [#/Vol] 0.738 10*3/uL Normal 200-950 [facility] Comment on above: Performed By: #### 9 05, 30674, 55745, 6399, 718, 899, 622, 98197, 72110 #### [facility] of [address] [place] [address] [address] Supervisor: Jose Juan Arriola MD Monocytes/100 WBC (Bld) 10.4 % Normal [facility] Comment on above: Performed By: #### 9 05, 39191, 17000, 6399, 718, 899, 622, 52921, 24918 #### [facility] [address], [address] [place] [address] [address] Supervisor: Jose Juan Arriola MD Neutrophils (Bld) [#/Vol] 4.679 10*3/uL Normal 2342-2239 [facility] Comment on above: Performed By: #### 9 05, 71205, 51039, 6399, 718, 899, 622, 70549, 10151 #### [facility] of [address], [address] [place] [address] [address] Supervisor: Jose Juan Arriola MD Neutrophils/100 WBC (Bld) 65.9 % Normal [facility] Comment on above: Performed By: #### 9 05, 38519, 81649, 6399, 718, 899, 622, 97009, 19254 #### [facility] of [address], [address] [place] [address] [address] Supervisor: Jose Juan Arriola MD Platelet mean volume (Bld) [Entitic vol] 11.4 fL Normal 7.5-12.5 [facility] Comment on above: Performed By: #### 9 05, 87376, 74809, 6399, 718, 899, 622, 80134, 37440 #### [facility] of [address], [address] [place] [address] [address] Supervisor: Jose Juan Arriola MD Platelets (Bld) [#/Vol] 229 10*3/uL Normal 140-400 [facility] Comment on above: Performed By: #### 9 05, 95185, 18267, 6399, 718, 899, 622, 28805, 84013 #### [facility] of [address], [address] [place] [address] [address] Supervisor: Jose Juan Arriola MD RBC (Bld) [#/Vol] 4.80 10*6/uL Normal 4.20-5.80 [facility] Comment on above: Performed By: #### 9 05, 52656, 37292, 6399, 718, 899, 622, 27015, 33252 #### [facility] [place] [address] [address] Supervisor: Jose Juan Arriola MD WBC (Bld) [#/Vol] 7.1 10*3/uL Normal 3.8-10.8 [facility] Comment on above: Performed By: #### 9 05, 33783, 56486, 6399, 718, 899, 622, 15878, 52589 #### [facility] [place] [address] [address] Supervisor: Jose Juan Arriola MD [facility] METABOLIC [facility] 11-03-2020 Albumin [Mass/Vol] 4.1 g/dL Normal 3.6-5.1 [facility] Comment on above: Performed By: #### 9 05, 66082, 14149, 6399, 718, 899, 622, 04357, 55264 #### [facility] [place] [address] [address] Supervisor: Jose Juan Arriola MD Albumin/Globulin [Mass ratio] 1.7 {ratio} Normal 1.0-2.5 [facility] Comment on above: Performed By: #### 9 05, 46265, 73789, 6399, 718, 899, 622, 75913, 99199 #### [facility] [place] [address] [address] Supervisor: Jose Juan Arriola MD ALP [Catalytic activity/Vol] 62 U/L Normal 35-144 [facility] Comment on above: Performed By: #### 9 05, 18090, 22084, 6399, 718, 899, 622, 21460, 69046 #### [facility] [place] [address] [address] Supervisor: Jose Juan Arriola MD ALT [Catalytic activity/Vol] 9 U/L Normal 9-46 [facility] Comment on above: Performed By: #### 9 05, 14908, 45543, 6399, 718, 899, 622, 76583, 97710 #### [facility] [place] [address] [address] Supervisor: Jose Juan Arriola MD AST [Catalytic activity/Vol] 13 U/L Normal 10-35 [facility] Comment on above: Performed By: #### 9 05, 07925, 48926, 6399, 718, 899, 622, 77938, 57297 #### [facility] [place] [address] [address] Supervisor: Jose Juan Arriola MD Bilirubin [Mass/Vol] 0.7 mg/dL Normal 0.2-1.2 [facility] Comment on above: Performed By: #### 9 05, 71158, 73148, 6399, 718, 899, 622, 57569, 70460 #### [facility] [place] [address] [address] Supervisor: Jose Juan Arriola MD Calcium [Mass/Vol] 9.5 mg/dL Normal 8.6-10.3 [facility] Comment on above: Performed By: #### 9 05, 90510, 41410, 6399, 718, 899, 622, 68806, 91656 #### [facility] [place] [address] [address] Supervisor: Jose Juan Arriola MD Chloride [Moles/Vol] 109 mmol/L Normal 98-110 [facility] Comment on above: Performed By: #### 9 05, 36420, 80550, 6399, 718, 899, 622, 90416, 83527 #### [facility] [place] [address] [address] Supervisor: Jose Juan Arriola MD CO2 [Moles/Vol] 25 mmol/L Normal 20-32 [facility] Comment on above: Performed By: #### 9 05, 65926, 49694, 6399, 718, 899, 622, 22286, 95031 #### [facility] [place] [address] [address] Supervisor: Jose Juan Arriola MD Creatinine [Mass/Vol] 1.99 mg/dL High 0.70-1.11 [facility] Comment on above: Result Comment: For patients >49 years of age, the reference limit for Creatinine is approximately 13% higher for people identified as -[place]. Performed By: #### 9 05, 61660, 30958, 6399, 718, 899, 622, 27819, 67658 #### [facility] [place] [address] [address] Supervisor: Jose Juan Arriola MD eGFR NON-AFR. PRYDEINIG 30 mL/min/1.73m2 Low > OR = 60 [facility] Comment on above: Performed By: #### 9 05, 35624, 96181, 6399, 718, 899, 622, 32494, 07729 #### [facility] [place] [address] [address] Supervisor: Jose Juan Arriola MD GFR/1.73 sq M.predicted among blacks MDRD (S/P/Bld) [Vol rate/Area] 34 mL/min/{1.73_m2} Low > OR = 60 [facility] Comment on above: Performed By: #### 9 05, 38891, 70942, 6399, 718, 899, 622, 42786, 32763 #### [facility] [address], [address] [place] [address] [address] Supervisor: Jose Juan Arriola MD Globulin (S) [Mass/Vol] 2.4 g/dL Normal 1.9-3.7 [facility] Comment on above: Performed By: #### 9 05, 86963, 13790, 6399, 718, 899, 622, 95852, 12091 #### [facility] [address], [address] [place] [address] [address] Supervisor: Jose Juan Arriola MD Glucose [Mass/Vol] 144 mg/dL High 65-99 [facility] Comment on above: Result Comment: Fasting reference interval For someone without known diabetes, a glucose value >125 mg/dL indicates that they may have diabetes and this should be confirmed with a follow-up test. Performed By: #### 9 05, 54049, 38070, 6399, 718, 899, 622, 51336, 82167 #### [facility] [place] [address] [address] Supervisor: Jose Juan Arriola MD Potassium [Moles/Vol] 4.9 mmol/L Normal 3.5-5.3 [facility] Comment on above: Performed By: #### 9 05, 42493, 88465, 6399, 718, 899, 622, 43988, 64202 #### [facility] [place] [address] [address] Supervisor: Jose Juan Arriola MD Protein [Mass/Vol] 6.5 g/dL Normal 6.1-8.1 [facility] Comment on above: Performed By: #### 9 05, 16656, 84774, 6399, 718, 899, 622, 00118, 51359 #### [facility] [place] [address] [address] Supervisor: Jose Juan Arriola MD Sodium [Moles/Vol] 141 mmol/L Normal 135-146 [facility] Comment on above: Performed By: #### 9 05, 78803, 16454, 6399, 718, 899, 622, 69230, 22311 #### [facility] [place] [address] [address] Supervisor: Jose Juan Arriola MD Urea nitrogen [Mass/Vol] 31 mg/dL High 7-25 [facility] Comment on above: Performed By: #### 9 05, 98699, 04748, 6399, 718, 899, 622, 58431, 27919 #### [facility] [address] [place] [address] [address] Supervisor: Jose Juan Arriola MD Urea nitrogen/Creatinine [Mass ratio] 16 mg/mg Normal 6-22 [facility] Comment on above: Performed By: #### 9 05, 08690, 40707, 6399, 718, 899, 622, 56075, 49766 #### [facility] [place] [address] [address] Supervisor: Jose Juan Arriola MD MAGNESIUMon 11-03-2020 Magnesium [Mass/Vol] 2.1 mg/dL Normal 1.5-2.5 [facility] Comment on above: Performed By: #### 9 05, 57710, 33975, 6399, 718, 899, 622, 98053, 17036 #### [facility] [place] [address] [address] Supervisor: Jose Juan Arriola MD PHOSPHATE ( PHOSPHORUS)on 11-03-2020 Phosphate [Mass/Vol] 2.9 mg/dL Normal 2.1-4.3 [facility] Comment on above: Performed By: #### 9 05, 36450, 44986, 6399, 718, 899, 622, 78144, 96597 #### [facility] [place] [address] [address] Supervisor: Jose Juan Arriola MD PTH, INTACT WITHOUT [...] Normal High Performed By: #### 9 05, 56333, 73192, 6399, 718, 899, 622, 27100, 95653 #### [facility] [place] [address] [address] Supervisor: Jose Juan Arriola MD TSHon 11-03-2020 TSH Qn 2.08 m[IU]/L Normal 0.40-4.50 [facility] Comment on above: Performed By: #### 9 05, 29528, 03482, 6399, 718, 899, 622, 94874, 67299 #### [facility] [address], [address] [place] [address] [address] Supervisor: Jose Juan Arriola MD URIC ACIDon 11-03-2020 Urate [Mass/Vol] 8.5 mg/dL High 4.0-8.0 [facility] Comment on above: Result Comment: Ther apeutic target for gout patients: <6.0 mg/dL Performed By: #### 9 05, 39849, 97781, 6399, 718, 899, 622, 24974, 42848 #### [facility] [address], [address] [place] [address] [address] Supervisor: Jose Juan Arriola MD VITAMIN D,25-OH,TOTAL,IAon 0 [...] D, (D2,D3), LC/MS/MS is recommended: order code 68077 (patients >2yrs). See Note 1 Note 1 For additional information, please refer to http://education.Publish2.Antenova/faq/NJJ496 (This link is being provided for informational/ educational purposes only.) Performed By: #### 1 0231, 7600 #### [facility] [address], [address] [place] [address] [address] Supervisor: Jose Juan Arriola MD [facility] CARDIAC STRESS/REST INJE CTIONon 08-07-2019 [facility] CARDIAC STRESS/REST INJECTION Patient Name: DONOVAN JACOME STUDY: MYOCARDIAL PERFUSION STRESS TEST WITH LEXISCAN Performing facility: [facility], [address] [place] [address], [address], [place] [address] [facility] Provider: Melanie Langston MD, [facility] PCP: Dr. Alden Morin Supervising provider: Doron Jacobsen MD, [facility] INDICATION: Arteriosclerotic cardiovascular disease Pre-operative risk assessment for Gallbladder scheduled at [facility] on TBA. HISTORY: Gender: M; Age: 83 y/o ; Height: 175.26 cm; Weight: 74.0081399 kg. High Cholesterol; CAD; HTN; ICD V. Tach., ICD Denies smoking. COMPARISON: Previous nuclear testing completed at [facility]. ACCESSION NUMBER(S): [id number]; [id number]; [id number] ORDERING CLINICIAN: AIDAN LANGSTON TECHNIQUE: ONE DAY [...] JACOBSEN MD [facility] Reminderson 03-14-2019 Reminders - From: Qing Villegas MA To: EU - Clinical; Sent: 03/04/2019 11:29:06 EDT Show up: 03/14/2019 11:29:00 EDT Subject: Ambulatory Reminder Due Date/Time: 03/18/2019 11:29:00 EDT Reminder/Recall FISH/Cytology done 03/04/19 Negative. Normal [facility] Vital Signs Date Time Vital Sign Value Performing Clinician Facility 03-06-2024 10:36-0400 Body height 177.8 cm [employer] [facility] 03-06-2024 10:36-0400 Body mass index (BMI) [Ratio] 21.38 kg/m2 [employer] [facility]: [facility] 03-06-2024 10:36-0400 Body temperature 97.5 [degF] [employer] Work [facility] 03-06-2024 10:36-0400 Body weight 67.59 kg [employer] Work [facility] 03-06-2024 10:36-0400 Diastolic blood pressure 60 mm[Hg] [employer] [facility] 03-06-2024 10:36-0400 Heart rate 70 /min [employer] Work Phone: [facility] [employer] [facility] 03-06-2024 10:36-0400 Respiratory rate 18 /min Phil Morin DO Work Phone: [facility] 03-06-2024 10:36-0400 SaO2% (BldA) [Mass fraction] 97 % Phil Myersng DO Work Phone: [facility] 03-06-2024 10:36-0400 Systolic blood pressure 110 mm[Hg] Phil Morin DO Work Phone: [facility] 03-04-2024 14:51-0400 SaO2% (BldA) [Mass fraction] 98 % Garland Rose MD Work Phone: [facility] 03-04-2024 12:23-0400 Body height 180.3 cm Garland Rose MD Work Phone: [facility] 03-04-2024 12:23-0400 Body mass index (BMI) [Ratio] 21.43 kg/m2 Garland Rose MD Work Phone: [facility] 03-04-2024 12:23-0400 Body temperature 97.3 [degF] Garland Rose MD Work Phone: [facility] 03-04-2024 12:23-0400 Body weight 69.7 kg Garland Rose MD Work Phone: [facility] 03-04-2024 12:23-0400 Diastolic blood pressure 78 mm[Hg] Garland Rose MD Work Phone: [facility] 03-04-2024 12:23-0400 Heart rate 75 /min Garland Rose MD Work Phone: [facility] 03-04-2024 12:23-0400 Respiratory rate 16 /min Garland Rose MD Work Phone: [facility] 03-04-2024 12:23-0400 Systolic blood pressure 159 mm[Hg] Garland Rose MD Work Phone: [facility] 02-26-2024 09:26-0400 Body height 180.3 cm Garland Rose MD Work Phone: [facility] 02-26-2024 09:26-0400 Body mass index (BMI) [Ratio] 21.34 kg/m2 Garland Rose MD Work Phone: [facility] 02-26-2024 09:26-0400 Body temperature 96.91 [degF] Garland Rose MD Work Phone: [facility] 02-26-2024 09:26-0400 Body weight 69.4 kg Garland Rose MD Work Phone: [facility] 02-26-2024 09:26-0400 Diastolic blood pressure 79 mm[Hg] Garland Rose MD Work Phone: [facility] 02-26-2024 09:26-0400 Heart rate 88 /min Garland Rose MD Work Phone: [facility] 02-26-2024 09:26-0400 Respiratory rate 16 /min Garland Rose MD Work Phone: [facility] 02-26-2024 09:26-0400 SaO2% (BldA) [Mass fraction] 98 % Garland Rose MD Work Phone: [facility] 02-26-2024 09:26-0400 Systolic blood pressure 115 mm[Hg] Garland Rose MD Work Phone: [facility] 11-05-2023 08:57-0400 Body height 180.3 cm Aidan Langston MD Work Phone: [facility] 11-05-2023 08:57-0400 Body mass index (BMI) [Ratio] 21.9 kg/m2 Aidan Langston MD Work Phone: [facility] 11-05-2023 08:57-0400 Body weight 71.22 kg Aidan Langston MD Work Phone: [facility] 11-05-2023 08:57-0400 Diastolic blood pressure 90 mm[Hg] Aidan Langston MD Work Phone: [facility] 11-05-2023 08:57-0400 Heart rate 82 /min Aidan Langston MD Work Phone: [facility] 11-05-2023 08:57-0400 Systolic blood pressure 130 mm[Hg] Aidan Langston MD Work Phone: [facility] 08-06-2023 10:10-0400 Body height 177.8 cm Phil Furlong DO Work Phone: [employer] 08-06-2023 10:10-0400 Body mass index (BMI) [Ratio] 23.69 kg/m2 Phil Furlong DO Work Phone: [employer] 08-06-2023 10:10-0400 Body temperature 97.81 [degF] Phil Furlong DO Work Phone: [employer] 08-06-2023 10:10-0400 Body weight 74.89 kg Phil Furlong DO Work Phone: [employer] 08-06-2023 10:10-0400 Diastolic blood pressure 60 mm[Hg] Phil Furlong DO Work Phone: [employer] 08-06-2023 10:10-0400 Heart rate 93 /min Phil Furlong DO Work Phone: [employer] 08-06-2023 10:10-0400 Respiratory rate 18 /min Phil Furlong DO Work Phone: [employer] 08-06-2023 10:10-0400 SaO2% (BldA) [Mass fraction] 97 % Phil Furlong DO Work Phone: [facility] [employer] [facility] 08-06-2023 10:10-0400 Systolic blood pressure 106 mm[Hg] Phil Reynagalong DO Work Phone: [facility] 05-29-2023 16:13-0500 Body height 177.8 cm Phil Reynagalong DO Work Phone: [facility] 05-29-2023 16:13-0500 Body mass index (BMI) [Ratio] 24.12 kg/m2 Phil Reynagalong DO Work Phone: [facility] 05-29-2023 16:13-0500 Body temperature 97.81 [degF] Phil Myersng DO Work Phone: [facility] 05-29-2023 16:13-0500 Body weight 76.25 kg Phil Myersng DO Work Phone: [facility] 05-29-2023 16:13-0500 Diastolic blood pressure 68 mm[Hg] Phil Myersng DO Work Phone: [facility] 05-29-2023 16:13-0500 Heart rate 104 /min Phil Myersng DO Work Phone: [facility] 05-29-2023 16:13-0500 SaO2% (BldA) [Mass fraction] 99 % Phil Myersng DO Work Phone: [facility] 05-29-2023 16:13-0500 Systolic blood pressure 128 mm[Hg] Phil Myersng DO Work Phone: [facility] 01-12-2023 14:17-0400 Body height 175.26 cm Phil Myersng Work Phone: [facility] DO Work Phone: 01-12-2023 14:17-0400 Body mass index (BMI) [Ratio] 23.78 kg/m2 Phil Reynagalong Work Phone: [facility] [employer] 250 DO Work Phone: 01-12-2023 14:17-0400 Body surface area Derived from formula 1.88 m2 Phil Reynagalong Work Phone: [facility] [employer] 250 DO Work Phone: 01-12-2023 14:17-0400 Body weight 73.03 kg Phil Reynagalong Work Phone: [facility] [employer] 250 DO Work Phone: 01-12-2023 14:17-0400 Diastolic blood pressure 78 mm[Hg] Phil Reynagalong Work Phone: [facility] [employer] 250 DO Work Phone: 01-12-2023 14:17-0400 Heart rate 72 /min Phil Reynagalong Work Phone: [facility] [employer] 250 DO Work Phone: 01-12-2023 14:17-0400 Systolic blood pressure 122 mm[Hg] Phil Reynagalong Work Phone: [facility] [employer] 250 DO Work Phone: 07-14-2022 15:41-0500 Body height 175.26 cm Phil Reynagalong Work Phone: [facility] [employer] 250 DO Work Phone: 07-14-2022 15:41-0500 Body mass index (BMI) [Ratio] 23.92 kg/m2 Phil Reynagalong Work Phone: [facility] [employer] 250 DO Work Phone: 07-14-2022 15:41-0500 Body surface area Derived from formula 1.89 m2 Phil Reynagalong Work Phone: [facility] [employer] 250 DO Work Phone: 07-14-2022 15:41-0500 Body weight 73.48 kg Phil Myersng Work Phone: [facility] 250 DO Work Phone: 07-14-2022 15:41-0500 Diastolic blood pressure 80 mm[Hg] Phil Reynagalong Work Phone: [facility] [employer] 250 DO Work Phone: 07-14-2022 15:41-0500 Heart rate 80 /min Phil Myersng Work Phone: [facility] [employer] 250 DO Work Phone: 07-14-2022 15:41-0500 Systolic blood pressure 130 mm[Hg] Phil Reynagalong Work Phone: [facility] [employer] 250 DO Work Phone: 06-15-2022 12:40-0500 Diastolic blood pressure 78 mm[Hg] [facility] 06-15-2022 12:40-0500 Systolic blood pressure 167 mm[Hg] [facility] 06-06-2022 08:07-0500 Diastolic blood pressure 85 mm[Hg] [facility] 06-06-2022 08:07-0500 Systolic blood pressure 150 mm[Hg] [facility] 04-03-2022 14:27-0500 Body height 175.26 cm Phil Myersng Work Phone: [facility] Work Phone: 04-03-2022 14:27-0500 Body mass index (BMI) [Ratio] 23.92 kg/m2 Phil Reynagalong Work Phone: [facility] Work Phone: 04-03-2022 14:27-0500 Body surface area Derived from formula 1.89 m2 Phil G Furlong Work Phone: LX-Nflttoetilxjsd-Qv [facility] Work Phone: 04-03-2022 14:27-0500 Body weight 73.48 kg Phil G INXPOlong Work Phone: ZU-Ftqliseihnrfoi-Yg [facility] Work Phone: 03-23-2022 09:29-0400 Diastolic blood pressure 89 mm[Hg] Karlie Craig Dept. of Dermatology 03-23-2022 09:29-0400 Systolic blood pressure 160 mm[Hg] Karlie Craig Dept. of Dermatology 03-23-2022 08:29-0400 Diastolic blood pressure 89 mm[Hg] Florentino Kumari Dept. of Dermatology 03-23-2022 08:29-0400 Systolic blood pressure 160 mm[Hg] Florentino Kumari Dept. of Dermatology 12-13-2021 08:48-0400 Body height 175.26 cm Phil Soliz [employer] Work Phone: [facility] [employer] 250 DO Work Phone: 12-13-2021 08:48-0400 Body mass index (BMI) [Ratio] 23.63 kg/m2 Phil Soliz [employer] Work Phone: [facility] [employer] 250 DO Work Phone: 12-13-2021 08:48-0400 Body surface area Derived from formula 1.88 m2 Phil Soliz [employer] Work Phone: [facility] 250 DO Work Phone: 12-13-2021 08:48-0400 Body weight 72.58 kg Phil G Furlong Work Phone: [facility] 250 DO Work Phone: 12-13-2021 08:48-0400 Diastolic blood pressure 80 mm[Hg] Phil G Furlong Work Phone: [facility] 250 DO Work Phone: 12-13-2021 08:48-0400 Heart rate 80 /min Phil G Furlong Work Phone: [facility] 250 DO Work Phone: 12-13-2021 08:48-0400 Systolic blood pressure 128 mm[Hg] Phil G Furlong Work Phone: [facility] 250 DO Work Phone: 05-02-2021 08:27-0500 Body height 175.26 cm Phil G Furlong Work Phone: [facility] 250 DO Work Phone: 05-02-2021 08:27-0500 Body mass index (BMI) [Ratio] 24.37 kg/m2 Phil G Furlong Work Phone: [facility] 250 DO Work Phone: 05-02-2021 08:27-0500 Body surface area Derived from formula 1.9 m2 Phil G Furlong Work Phone: [facility] 250 DO Work Phone: 05-02-2021 08:27-0500 Body weight 74.84 kg Phil G Furlong Work Phone: [facility] 250 DO Work Phone: 05-02-2021 08:27-0500 Diastolic blood pressure 76 mm[Hg] Phil Reynagalong Work Phone: [facility] 250 DO Work Phone: 05-02-2021 08:27-0500 Heart rate 81 /min Phil Myersng Work Phone: [facility] 250 DO Work Phone: 05-02-2021 08:27-0500 Systolic blood pressure 137 mm[Hg] Phil Myersng Work Phone: [facility] 250 DO Work Phone: 1935 23:00-0500 >na< Karlie Craig Dept. of Dermato logy Encounters Encounter Date Encounter Type Care Provider Facility Start: 06-24-2024 End: 06-24-2024 Bamboo flowsheet Swatitheo Mejia AUD Work Phone: [facility] Start: 06-24-2024 End: 06-24-2024 Bamboo flowsheet Swati Mejia AUD Work Phone: [facility] Start: 06-24-2024 End: 06-24-2024 Patient encounter procedure Swati Mejia AUD Work Phone: [facility] Comment on above: Sensorineural hearin g loss, bilateral (Primary Dx) Start: 06-24-2024 End: 06-24-2024 ambulatory SWATI MEJIA Not Available Start: 05-29-2024 End: 05-29-2024 Orders Only Phil Morin DO Work Phone: [facility] Comment on above: Longstanding persist ent atrial fibrillation (CMS-HCC) (Primary Dx) Start: 05-28-2024 End: 06-03-2024 Telephone encounter Kaylan Dunbar CMA [facility] Start: 03-11-2024 End: 03-11-2024 ambulatory [facility] Ambulatory Start: 03-10-2024 End: 03-10-2024 Orders Only Phil Morin DO Work Phone: [facility] Comment on above: Vitamin D deficiency (Primary Dx) Start: 03-06-2024 End: 03-06-2024 ambulatory [facility] Start: 03-06-2024 End: 03-06-2024 Office outpatient visit 25 minutes Phil Morin DO Work Phone: [facility] Comment on above: Hypertension 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 ([facility]) (Primary Dx); 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); Cardiomyopathy ([facility]); Stage 4 chronic kidney disease (CMS-HCC); Type 2 diabetes mellitus without complication, without long-term current use of insulin ([facility]) Start: 03-06-2024 End: 03-06-2024 [facility] Start: 03-04-2024 End: 03-04-2024 Subsequent hospital visit by physician Garland Rose MD Work Phone: [facility] Comment on above: 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 (Primary Dx); Ventricular tachycardia (Multi) Start: 02-26-2024 End: 02-26-2024 ambulatory [facility] Start: 02-26-2024 End: 02-26-2024 Office outpatient new 45 minutes Garland Rose MD Work Phone: [facility] Comment on above: 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; Ventricular tachycardia (Multi); Ischemic cardiomyopathy Start: 02-26-2024 End: 02-26-2024 ambulatory [facility] Start: 02-05-2024 End: 02-05-2024 Patient encounter procedure DO Phil Morin Work Phone: [facility] Start: 02-05-2024 End: 02-05-2024 ambulatory DO Phil Furlong Work Phone: [facility] Work Phone: Start: 12-27-2023 End: 12-27-2023 Patient encounter procedure DO Phil Furlong Work Phone: [facility] Start: 12-27-2023 End: 12-27-2023 ambulatory DO Phil Furlong Work Phone: [facility] Work Phone: Start: 11-05-2023 End: 11-05-2023 Office outpatient visit 25 minutes Aidan Langston MD Work Phone: [facility] Comment on above: Arteriosclerotic car diovascular disease (ASCVD) (Primary Dx); Essential hypertension; Mixed hyperlipidemia; Ventricular tachycardia (Multi); ICD (implantable cardioverter-defibrillator) in place; Dilated cardiomyopathy (Multi); Ischemic cardiomyopathy Start: 11-05-2023 End: 11-05-2023 ambulatory AIDAN LANGSTON [facility] Ambulatory Start: 09-27-2023 End: 09-27-2023 Patient encounter procedure DO Phil Furlong Work Phone: [facility] Start: 09-27-2023 End: 09-27-2023 ambulatory DO Phil Furlong Work Phone: [facility] Work Phone: Start: 08-23-2023 Orders Only Philgirish Reynagalo ng DO Work Phone: [facility] Start: 08-09-2023 Orders Only Phil G Furlo ng DO Work Phone: [facility] Comment on above: Type 2 diabetes gamaliel itus without complication, without long- term current use of insulin ([facility]) (Primary Dx); Hypertensive 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 ([facility]) Start: 08-06-2023 End: 08-06-2023 [facility] Start: 08-06-2023 End: 08-06-2023 Office outpatient [...] (CMS-HCC); 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); Longstanding persistent atrial fibrillation (CMS-HCC); Paroxysmal atrial fibrillation (CMS-HCC); Microalbuminuric diabetic nephropathy ([facility]) Start: 08-06-2023 End: 08-06-2023 [facility] Start: 07-18-2023 Orders Only Phil pool DO Work Phone: [facility] Comment on above: Longstanding persist ent atrial fibrillation ([facility]) (Primary Dx) Start: 06-28-2023 End: 06-28-2023 Patient encounter procedure DO Phil Morin Work Phone: [facility] Start: 06-28-2023 End: 06-28-2023 ambulatory DO Phil Morin Work Phone: [facility] Work Phone: Start: 05-29-2023 End: 05-29-2023 Office outpatient visit 25 minutes Phil Morin DO Work Phone: [facility] Comment on above: Paroxysmal atrial fi brillation (CMS-HCC) (Primary Dx); Hypertensive 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 ([facility]); Essential hypertension; Hypothyroidism, unspecified type; Type 2 diabetes mellitus without complication, without long-term current use of insulin (CMS-HCC); Arteriosclerotic vascular disease Start: 05-29-2023 End: 05-29-2023 ambulatory PHIL MORIN [facility] Start: 03-20-2023 End: 03-20-2023 ambulatory DO Phil Furlong Work Phone: [facility] Work Phone: Start: 03-20-2023 End: 03-20-2023 Patient encounter procedure DO Phil Furlong Work Phone: [facility] Start: 01-12-2023 Office outpatient vi sit 25 minutes Phil G Furlong Work Phone: [facility] 250 DO Work Phone: Start: 01-12-2023 Patient encounter procedure De mindi Reynagalong Work Phone: [facility] 250 DO Work Phone: Start: 10-17-2022 End: 10-18-[address] JARON DAVALOS Facility:[facility]1 Start: 09-15-2022 End: 09-16-[address] JARON DAVALOS Facility:[facility] Start: 08-28-2022 End: 08-28-2022 ambulatory DO Phil Furlong Work Phone: [facility] Work Phone: Start: 08-28-2022 End: 08-28-2022 Patient encounter procedure DO Philgirish Reynagalong Work Phone: [facility] Start: 08-15-2022 End: 08-16-[address] JARON DAVALOS Facility:[facility]1 Start: 07-18-2022 End: 07-19-[address] JARON DAVALOS Facility:[facility] Start: 07-14-2022 Office outpatient vi sit 25 minutes Philgirish Reynagalong Work Phone: [facility] 250 DO Work Phone: Start: 07-04-2022 End: 07-05-[address] JARON DAVALOS Facility:[facility] Start: 07-03-2022 Karlie Craig Dept. of D ermatology Start: 06-16-2022 Jaimie Estevez Dept. of Dermatology Start: 06-16-2022 Telephone encounter Phil Soliz Mckayla duron Work Phone: [facility] 250 DO Work Phone: Start: 06-15-2022 Florentino Kumari Dept. of Dermatology Start: 06-09-2022 Rx Renewal Phil Soliz Corey ng Work Phone: [facility] 250 DO Work Phone: Start: 06-07-2022 End: 06-08-[address] PHIL MORIN Facility:[facility]1 Start: 06-07-2022 Florentino Kumari Dept. of Dermatology Start: 05-17-2022 End: 05-17-2022 ambulatory DO Phil Myersng Work Phone: [facility] Work Phone: Start: 05-17-2022 End: 05-17-2022 Patient encounter procedure DO Phil Myersng Work Phone: [facility] Start: 05-08-2022 End: 05-09-[address] PHIL MORIN Facility:[facility]1 Start: 05-01-2022 Rx Renewal Phil Myers ng Work Phone: [facility] 250 DO Work Phone: Start: 04-07-2022 End: 04-08-[address] PHIL MORIN Facility:[facility]1 Start: 04-04-2022 Karlie Craig Dept. of D ermatology Start: 04-03-2022 Office outpatient ne w 45 minutes Phil Morin Work Phone: [facility] Work Phone: Start: 04-03-2022 Patient encounter procedure Abhi joseponce Morin Work Phone: [facility] Work Phone: Start: 03-23-2022 Florentino Kumari Dept. of Dermatology Start: 03-06-2022 End: 03-07-[address] PHIL MORIN Facility:[facility]1 Start: 02-28-2022 Karlie Craig Dept. of D ermatology Start: 02-15-2022 End: 02-15-2022 ambulatory DO Phil Reynagadestinyyrn Work Phone: [facility] Work Phone: Start: 02-15-2022 End: 02-15-2022 Patient encounter procedure DO Phil Reynagadestinyyrn Work Phone: [facility] Start: 02-03-2022 End: 02-04-[address] PHIL MORIN Facility:[facility]1 Start: 01-02-2022 End: 01-03-[address] PHIL MORIN Facility:[facility]1 Start: 12-13-2021 Office outpatient vi sit 25 minutes Phil Morin Work Phone: [facility] 250 DO Work Phone: Start: 12-02-2021 End: 12-16-[address] PHIL MORIN Facility:[facility]1 Start: 11-18-2021 End: 11-19-[address] PHIL MORIN Facility:[facility]1 Start: 05-02-2021 Office outpatient vi sit 25 minutes Phil Morin Work Phone: [facility] 250 DO Work Phone: Procedures Date Procedure Procedure Detail Performing Clinician Start: 06-24-2024 AUDITORY FUNCTION TESTS Swati CESAR Work Phone: Start: 03-04-2024 Ecg routine ecg w/le ast 12 lds trcg only w/o i&r Aleena Morales [employer] Work Phone: Start: 03-04-2024 Basic metabolic pane l calcium total Aleena Morales Bar [employer] Work Phone: Start: 02-26-2024 Ecg routine ecg w/le ast 12 lds trcg only w/o i&r Garland Rose MD Work Phone: Start: 08-06-2023 Adult depression scr eening assessment Phil Morin DO Work Phone: Start: 05-29-2023 Adult depression scr eening assessment Phil Morin DO Work Phone: Start: 06-15-2022 Excision malignant l esion s/n/h/f/g 2.1-3.0 cm Florentino Kumari Start: 06-06-2022 Excision malignant: Scalp/Neck/Hands/Feet/Genit adam - 4.0cm [id number] Florentino Kumari Start: 06-06-2022 Excision malignant: Scalp/Neck/Hands/Feet/Genit adam - 4.0cm [id number] Florentino Kumari Start: 03-23-2022 End: 03-23-2022 Exc b9 lesion mrgn xcp sk tg t/a/l 3.1-4.0 cm Florentino Kumari Start: 02-28-2022 Karlie amaya Brain Surgery Phil Myers ng Work Phone: Cataract surgery Phil Card rlong Work Phone: History Of Prior Surgery Brayan Myersng Work Phone: Total colonoscopy Phil Block urlong Work Phone: Transurethral resect ion of bladder neoplasm Phil Morin Work Phone: Plan of Treatment Date Care Activity Detail Author Start: 08-11-2027 DTaP,Tdap and Td Vaccines (2 - Td or Tdap) DTaP,Tdap and Td Vaccines (2 - Td or Tdap) [facility] Start: 08-11-2027 DTaP/Tdap/Td Vaccines (2 - Td or Tdap) DTaP/Tdap/Td Vaccines (2 - Td or Tdap) [facility] Start: 03-06-2025 Adult BMI Screening Adult BMI Screening [facility] Start: 03-06-2025 Tobacco Screening Tobacco Screening [facility] Start: 03-04-2025 Creatinine measurement Creatinine Level [facility] Start: 03-04-2025 Potassium measurement Potassium Level [facility] Start: 09-04-2024 End: 09-04-2024 Patient encounter procedure 09/04/2024 10:00 AM EDT Office Visit [facility] [address] [place] [address] Phil Morin, [address], [place] [address] [facility] Start: 09-02-2024 End: 03-04-2025 Cardiac Device Check - In Clinic Cardiac Device Check - In Clinic Implantable Cardiac Device Routine 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 Expected: 09/02/2024 (Approximate), Expires: 03/04/2025 [facility] Service Area Work Phone: Comment on above: Expected: 09/02/2024 (Approximate), Expi res: 03/04/2025 Start: 09-02-2024 End: 09-02-2024 Patient encounter procedure [facility] Start: 08-05-2024 Administration of varicella zoster vaccine Zoster (Shingles) Vaccine (1 of 2) [facility] Comment on above: Postponed from 09/25/2015 (Patient Refus ed) Start: 08-05-2024 Adult BMI Screening Adult BMI Screening [facility] Start: 08-05-2024 Depression Screening Depression Screening [facility] Start: 08-05-2024 Tobacco Screening Tobacco Screening [facility] Start: 08-04-2024 End: 08-04-2024 Patient encounter procedure 08/04/2024 9:30 AM EDT Office Visit [facility] [address] [facility] [address] [place] [id number] Adri Mckenzie MD [address] [place] [address] [facility] Start: 07-18-2024 End: 07-18-2024 Patient encounter procedure 07/18/2024 12:45 PM EST Office Visit [facility] [address] [place] [phone] Swati Mejia, AUD [address] [place] [address] [facility] Start: 06-24-2024 End: 06-24-2024 Patient encounter procedure 06/24/2024 1:00 PM EST Office Visit [facility] [address] [place] [address] Swati Mejia, AUD [address] [place] [address] Arrived [facility] Comment on above: Arrived Start: 05-29-2024 Adult BMI Screening Adult BMI Screening [facility] Start: 05-29-2024 Depression Screening Depression Screening [facility] Start: 05-29-2024 Fall Risk Screening Fall Risk Screening [facility] Start: 05-29-2024 Tobacco Screening Tobacco Screening [facility] Start: 03-11-2024 End: 03-11-2024 Clinical Support 03/11/2024 9:30 AM EDT Clinical Support [facility] [address] [facility] [address] [place] [phone] [facility] Start: 03-04-2024 End: 03-04-2024 Admission to same day surgery center 03/04/2024 3:30 PM EDT - 03/04/2024 4:30 PM EDT Surgery [facility] [address] [place] [address] Garland Rsoe MD [address] [place] [address] ICD DC Generator Change [27124 (CPT )] [facility] Comment on above: ICD DC Generator Change [60893 (CPT )] Start: 03-04-2024 Subsequent hospital visit by physician 03/04/2024 3:30 PM EDT Hospital Encounter [facility] [address] [place] [address] Garland Rose MD [address] [place] [address] 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; Ventricular tachycardia (Multi) [facility] Comment on above: ICD (implantable cardioverter-defibrilla tor) in place; Ventricular tachycardia (Multi) Start: 02-06-2024 End: 02-06-2024 Patient encounter procedure 02/06/2024 9:00 AM EDT Office Visit [facility] [address] [place] [address] Phil Morin, [address], [facility] [place] [address] [facility] Start: 01-20-2024 COVID-19 Vaccine ( season) COVID-19 Vaccine ( season) [facility] Start: 01-20-2024 Influenza vaccination [facility] Start: 10-16-2023 FUV, Provider: Aidan Langston, Status: Pen, Time: 9:00 AM FUV, Provider: Aidan Langston, Status: Pen, Time: 9:00 AM [place] [address] DO Work Phone: Start: 08-06-2023 End: 08-06-2023 Patient encounter procedure 08/06/2023 10:10 AM EDT Office Visit [facility] [address] [place] [address] Phil Morin, DO [address], [place] [address] [facility] - Family [facility] Start: 07-30-2023 End: 07-30-2023 Patient encounter procedure 07/30/2023 10:20 AM EDT Office Visit [facility] [address] [place] [address] Phil Morin, DO [address], [place] [address] [facility] Internal [facility] Start: 01-19-2023 COVID-19 Vaccine ( season) COVID-19 Vaccine ( season) [facility] Start: 01-12-2023 FUV, Provider: Aidan Langston, Status: Pen, Time: 2:10 PM FUV, Provider: Aidan Langston, Status: Pen, Time: 2:10 PM [facility] 250 DO Work Phone: Start: 07-14-2022 FUV, Provider: Aidan Langston, Status: Pen, Time: 3:10 PM FUV, Provider: Aidan Langston, Status: Pen, Time: 3:10 PM [facility] Work Phone: Start: 06-27-2022 FUV, Provider: Doron Jacobsen, Status: Pen, Time: 9:10 AM FUV, Provider: Doron Jacobsen, Status: Pen, Time: 9:10 AM [facility] Work Phone: Start: 12-13-2021 FUV, Provider: Aidan Langston, Status: Pen, Time: 8:50 AM FUV, Provider: Aidan Langston, Status: Pen, Time: 8:50 AM [facility] 250 DO Work Phone: Start: 06-03-2016 Creatinine measurement Creatinine Level [facility] Start: 06-03-2016 Potassium measurement Potassium Level [facility] Start: 09-25-2015 Administration of varicella zoster vaccine Zoster (Shingles) Vaccine (1 of 2) [facility] [employer] [facility] Start: 09-25-2015 Zoster Vaccines (2 of 3) Zoster Vaccines (2 of 3) [facility] Start: 1994 RSV patients and/or patients aged 60+ years (1 - 1-dose 60+ series) RSV patients and/or patients aged 60+ years (1 - 1-dose 60+ series) [facility] Start: 1952 Diabetes mellitus screening Diabetes Screening [facility] Start: 02-13-1935 Examination of skin Derm Melanoma Skin Check [facility] Start: 1934 Echocardiography Echocardiogram [facility] Start: 1934 Lipid panel Lipid Panel [facility] Start: 1934 Medicare Annual Wellness Visit [facility] [employer] [facility] Start: 1934 Screening for osteoporosis Bone Density Scan [facility] End: 05-29-2024 Comprehensive metabolic 2000 panel - Serum or Plasma Comprehensive metabolic panel Lab Routine 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) 1 Occurrences starting 05/29/2023 until 05/29/2024 [facility] Comment on above: 1 Occurrences starting 05/29/2023 until 05/29/2024 ECG 12 lead STAT ECG 12 lead STA T ECG STAT 03/04/2024 12:20 PM EDT [facility] Service Area Work Phone: End: 02-26-2024 Electrophysiology study [facility] Service Are a Work Phone: Comment on above: Once for 1 Occurrences starting 02/26/20 until 02/26/2024 End: 03-06-2025 Hemoglobin A1c/Hemoglobin.total in Blood Hemoglobin A1c Lab Routine Type 2 diabetes mellitus without complication, without long-term current use of insulin ([facility]) 1 Occurrences starting 03/06/2024 until 03/06/2025 [employer] Comment on above: 1 Occurrences starting 03/06/2024 until 03/06/2025 End: 05-29-2024 Hemoglobin A1c/Hemoglobin.total in Blood Hemoglobin A1c Lab Routine Type 2 diabetes mellitus without complication, without long-term current use of insulin ([facility]) 1 Occurrences starting 05/29/2023 until 05/29/2024 [employer] Comment on above: 1 Occurrences starting 05/29/2023 until 05/29/2024 End: 05-29-2024 Lipid panel Lipid panel Lab Routine Arteriosclerotic vascular disease 1 Occurrences starting 05/29/2023 until 05/29/2024 [employer] Comment on above: 1 Occurrences starting 05/29/2023 until 05/29/2024 End: 03-06-2025 Magnesium [Mass/volume] in Serum or Plasma Magnesium Lab Routine Hypertensive 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 ([facility]) 1 Occurrences starting 03/06/2024 until 03/06/2025 [employer] Comment on above: 1 Occurrences starting 03/06/2024 until 03/06/2025 End: 03-06-2025 Parathyroid Hormone, intact Parathyroid Hormone, intact Lab Routine Hypertensive 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 ([facility]) 1 Occurrences starting 03/06/2024 until 03/06/2025 [employer] Comment on above: 1 Occurrences starting 03/06/2024 until 03/06/2025 End: 03-06-2025 Phosphate [Mass/volume] in Serum or Plasma Phosphorus Lab Routine Hypertensive 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 ([facility]) 1 Occurrences starting 03/06/2024 until 03/06/2025 [employer] Comment on above: 1 Occurrences starting 03/06/2024 until 03/06/2025 End: 05-29-2024 Protime & INR Protime & INR Lab Routine Paroxysmal atrial fibrillation ([facility]) 1 Occurrences starting 05/29/2023 until 05/29/2024 [employer] Work Phone: Comment on above: 1 Occurrences starting 05/29/2023 until 05/29/2024 End: 05-29-2025 Protime-INR Protime-INR Lab Routine Longstanding persistent atrial fibrillation ([facility]) 1 Occurrences starting 05/29/2024 until 05/29/2025 [employer] Work Phone: Comment on above: 1 Occurrences starting 05/29/2024 until 05/29/2025 End: 05-29-2024 Thyrotropin [Units/volume] in Serum or Plasma TSH Lab Routine Hypothyroidism, unspecified type 1 Occurrences starting 05/29/2023 until 05/29/2024 [employer] Comment on above: 1 Occurrences starting 05/29/2023 until 05/29/2024 End: 03-06-2025 Urate [Mass/volume] in Serum or Plasma Uric acid Lab Routine Hypertensive 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 ([facility]) 1 Occurrences starting 03/06/2024 until 03/06/2025 [employer] Work Phone: Comment on above: 1 Occurrences starting 03/06/2024 until 03/06/2025 End: 03-06-2025 Vitamin D 25 hydroxy Vitamin D 25 hydroxy Lab Routine Hypertensive 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 ([facility]) Stage 4 chronic kidney disease ([facility]) 1 Occurrences starting 03/06/2024 until 03/06/2025 [facility]: 1 Occurrences starting 03/06/2024 until 03/06/2025 Immunizations Immunization Date Immunization Notes Care Provider [facility] 02-27-2024 Influenza, High-dose , Quadrivalent Phil Morin DO Work Phone: [facility] [employer] [facility] 03-30-2023 Influenza, High-dose , Quadrivalent Phil Morin DO Work Phone: [facility] [employer] [facility] 03-30-2023 influenza virus vacc ine, unspecified formulation Phil Morin DO Work Phone: [facility] [employer] [facility] 02-16-2022 Fluzone High-Dose Quadrivalent 0.7 ML Intramuscular Suspension Prefilled Syringe Phil Morin Work Phone: [place] [address] DO Work Phone: 01-28-2021 Fluad Quadrivalent 0 .5 ML Intramuscular Prefilled Syringe Phil Myersng Work Phone: [place] [address] DO Work Phone: 07-14-2020 Pfizer-BioNTech COVI D-19 Vacc 30 MCG/0.3ML Intramuscular Suspension Phil Myersng Work Phone: [place] [address] DO Work Phone: 07-01-2020 Pfizer-BioNTech COVI D-19 Vacc 30 MCG/0.3ML Intramuscular Suspension Phil G Coreyng Work Phone: [facility] 06-16-2020 COVID-19, mRNA, LNP- S, PF, 30mcg/0.3mL Dose Phil Reynagayrn DO Work Phone: [facility] 06-11-2020 Pfizer-BioNTech COVI D-19 Vacc 30 MCG/0.3ML Intramuscular Suspension Phil Myersng Work Phone: [place] [address] DO Work Phone: 04-05-2020 pneumococcal polysaccharide vaccine, 23 valent Phil Myersng Work Phone: [place] [address] DO Work Phone: 02-23-2020 Fluad Quadrivalent 0 .5 ML Intramuscular Prefilled Syringe Phil Morin Work Phone: [place] [address] DO Work Phone: 02-19-2020 influenza, seasonal, injectable Phil G Coreyng Work Phone: [place] [address] DO Work Phone: 07-20-2019 pneumococcal conjuga te vaccine, 13 valent Phil G Furlong Work Phone: [place] [address] DO Work Phone: 03-12-2019 pneumococcal conjuga te vaccine, 13 valent Phil Soliz [place] Work Phone: [place] [address] DO Work Phone: 03-12-2019 Seasonal trivalent influenza vaccine, adjuvanted, preservative free Phil Soliz [place] Work Phone: [place] [address] DO Work Phone: 02-18-2019 influenza virus vacc ine, unspecified formulation Phil Soliz [place] Work Phone: [place] [address] DO Work Phone: 03-04-2018 influenza virus vacc ine, unspecified formulation Phil Soliz [place] Work Phone: [place] [address] DO Work Phone: 08-10-2017 tetanus toxoid, redu edwin diphtheria toxoid, and acellular pertussis vaccine, adsorbed Phil Soliz [place] Work Phone: [place] [address] DO Work Phone: 03-21-2017 influenza virus vacc ine, unspecified formulation Phil Soliz [place] Work Phone: [place] [address] DO Work Phone: 03-13-2017 influenza, seasonal, [facility]: [place] [address] DO Work Phone: 02-21-2016 influenza, seasonal, injectable, preservative free [facility] Work [facility]: [place] [address] DO Work Phone: 02-19-2016 influenza virus vacc ine, unspecified formulation Phil Soliz [place] Work Phone: [facility] 250 DO Work Phone: 07-31-2015 zoster vaccine, live Phil Reynagalong Work Phone: [facility] 250 DO Work Phone: 07-31-2015 zoster vaccine, unspecified formulation Phil Reynagalong DO Work Phone: [facility] 02-18-2015 influenza virus vacc ine, unspecified formulation Phil G Furlong Work Phone: [place] [address] DO Work Phone: 02-17-2015 influenza, seasonal, injectable, preservative free Phil Reynagalong DO Work Phone: [facility] 05-11-2014 pneumococcal polysaccharide vaccine, 23 valent Phil G Ronnelllong Work Phone: [place] [address] DO Work Phone: 02-18-2014 influenza virus vacc ine, unspecified formulation Phil Reynagalong Work Phone: [place] [address] DO Work Phone: 04-03-2013 pneumococcal conjuga te vaccine, 13 valent Phil G Furlong Work Phone: [facility] 250 DO Work Phone: 02-18-2013 influenza virus vacc ine, unspecified formulation Phil G Furlong Work Phone: [facility] 250 DO Work Phone: 02-18-2013 pneumococcal polysaccharide vaccine, 23 valent Phil G Furlong Work Phone: [facility] 250 DO Work Phone: 12-20-2011 influenza virus vacc ine, unspecified formulation Phil G Furlong Work Phone: [place] [address] DO Work Phone: 05-21-2010 influenza virus vacc ine, unspecified formulation Phil Soliz [place] Work Phone: [facility] 250 DO Work Phone: 05-21-2009 influenza virus vacc ine, unspecified formulation Phil Soliz [place] Work Phone: [facility] 250 DO Work Phone: 05-21-2008 influenza virus vacc ine, unspecified formulation Phil Soliz [place] Work Phone: [facility] 250 DO Work Phone: 05-21-2007 pneumococcal polysaccharide vaccine, 23 valent Phil Soliz [place] Work Phone: [place] [address] DO Work Phone: 03-28-2002 pneumococcal polysaccharide vaccine, 23 valent Phil Soliz [place] Work Phone: [facility] 250 DO Work Phone: 03-21-2002 pneumococcal polysaccharide vaccine, 23 valent Phil Furlong DO Work Phone: [facility] 1934 pneumococcal conjuga te vaccine, 7 valent [facility] Payers Date Payer Category Payer Medicare (Managed Care) [facility] [id number] 2023 Self-pay [id number] 2022 Medicare [id number] 1959 Private Health Insurance [id number] 1959 Private Health Insurance [id number] 1934 Unknown [id number] 2.16.840.1.363953.3.579.2. 593 1934 Unknown [id number] 2.16.840.1.151916.3.579.2. 593 1934 Unknown [id number] 2.16.840.1.532496.3.579.2. 593 1934 Unknown [id number] 2.16.840.1.014519.3.579.2. 593 1934 Unknown [id number] 2.16.840.1.114927.3.579.2. 593 1934 Unknown [id number] 2.16.840.1.540720.3.579.2. 593 1934 Unknown [id number] 2.16.840.1.328063.3.579.2. 593 1934 Unknown [id number] 2.16.840.1.784378.3.579.2. 593 1934 Unknown [id number] 2.16.840.1.500248.3.579.2. 593 1934 Unknown [id number] 2.16.840.1.276773.3.579.2. 593 1934 Unknown [id number] 2.16.840.1.974403.3.579.2. 593 1934 Unknown [id number] 2.16.840.1.463288.3.579.2. 593 1934 Unknown [id number] 2.16.840.1.711509.3.579.2. 593 1934 Unknown [id number] 2.16.840.1.242128.3.579.2. 1246 1934 Unknown [id number] 2.16.840.1.753931.3.579.2. 1246 1934 Unknown [id number] 2.16.840.1.355817.3.579.2. 128 1934 Unknown [id number] 2.16.840.1.641157.3.579.2. 1286 1934 Unknown [id number] 2.16840.1.437673.3.579.2. 1286 1934 Unknown [id number] 2.16.840.1.904412.3.579.2. 128 1934 Unknown [id number] 2.16.840.1.293400.3.579.2. 128 1934 Unknown [id number] 2.16.840.1.510679.3.579.2. 1244 1934 Unknown [id number] 2.16840.1.190143.3.579.2. 1244 1934 Unknown [id number] 2.16840.1.502212.3.579.2. 1259 Medicare Medicare [id number] Medicare Medicare [id number] Unknown Unknown [place] BC/BS [id number] Unknown [id number] 2.16840.1.611197.3.579.2. 531 Unknown [id number] 2.16.840.1.513350.3.579.2. 531 Unknown [id number] 2.16.840.1.711781.3.579.2. 531 Unknown [id number] 2.16.840.1.067952.3.579.2. 531 Social History Date Type Detail Facility Start: 09-19-2022 End: 05-29-2023 No alcohol use No alcohol use [facility] 250 DO Work Phone: Comment on above: 2 cups coffee daily; Start: 07-19-2019 End: 03-31-2022 Tobacco smoking status NHIS Never smoked tobacco (finding) [facility] Start: 1934 End: 1934 Sex Assigned At Male [facility] Start: 02-28-2022 IBRAHIMA [facility] Start: 03-31-2022 End: 07-11-2023 Tobacco use and exposure Smokeless tobacco non-user [facility] Start: 05-29-2023 End: 03-06-2024 Alcohol intake Ex-drinker (finding) [facility] Start: 09-19-2022 End: 05-29-2023 [facility] [employer] [facility] Has the Medicine in Practice, oil, or water [email or web address] threatened to shut off services in your home in past 12Mo No [facility] Are you now , , , , never or living with a partner? [facility] How often to you hav e a drink containing alcohol? Never [facility] How many standard drinks containing alcohol do you have on a typical day? Patient does not drink [facility] Do you feel stress - tense, restless, nervous, or anxious, or unable to sleep at night because your mind is troubled all the time - these days [OSQ] Not at all [facility] Start: 1935 Sex Assigned At Not on file P [facility] [employer] [facility] Start: 11-05-2023 End: 03-04-2024 Alcoholic beverage intake Lifetime non-drinker (finding) [facility] Work Phone: Start: 10-26-2023 End: 03-04-2024 Exposure to SARS-CoV-2 (event) Not sure [facility] Start: 12-24-2014 Sex Male (finding) [facility] Medical Equipment Procedure Code Equipment Code Equipment Origin al Text Equipment Identifier Dates Willow Rodriguez Icd D f1 Connector [id number] Start: 03-04-2024 Goals Date Patient Goal Desired Activity /State Clinical Notes 05-29-2023 to 06-24-2024 Swati Mejia, AUD - 06/24/2024 1:00 PM ESTTelephone Encounter - Kaylan Dunbar, COLLAR SEPARATOR - 05/28/2024 11:03 AM ESTTelephone Encounter - Kaylan Dunbar, [facility] - 05/28/2024 11:03 AM ESTPatient Instructions Note Date & Type Note Facility 06-24-2024 History of Present illness Narrative History: Patient was referred for an audiological evaluation by Sweta. He is aware of hearing loss, wearing amplification in the right ear (He wears a Vendormate MAGALI 312.) Pt has a history of an asymmetry and is interested in new technology for the right ear only. He previously had a different piece coupled to his ear canal which helped hold in his hearing aid better. He would like to consider something that would help give him more sound. Otoscopic Exam: Revealed ear canals were clear from excessive cerumen, bilaterally. 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 Speech Audiometry Right SRT = 60 dB and word discrimination score at 90 dBHL = 84% Left SRT = 90 dB and word discrimination score at 100 dBHL = 0% Tympanometry Unable to maintain test seal, AU Impressions: Discussed results with the patient. He would like to proceed with a battery operated MAGALI for his right ear. Discussed options with patient. He would benefit from a custom MAGALI mold, which would help provide retention and give more sound. Pt would like to consider this option. An impression was taken of the right ear without incident. Pt would like to proceed with premium technology. He would like to proceed with 1 Synergy Hub AI 24 MAGALI in caramel with size 4P patternmaker all around. Cost collected in portal. Pt scheduled for HAF 07-18-2024 documented in this encounter [facility] 05-28-2024 Miscellaneous Notes Patient came in to check on his INR and doctor looked at it and stated that he needs to continue current regimen and to recheck in 1 month. Can you please put in a new standing order for [facility] for the new year. Please then send to [facility] documented in this encounter [facility] [employer] [facility] 05-28-2024 Telephone encounter Note Patient came in to check on his INR and doctor looked at it and stated that he needs to continue current regimen and to recheck in 1 month. Can you please put in a new standing order for [facility] for the new year. 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 CMP done prior to his pacemaker surgery was reviewed and showed stage 4 chronic kidney disease which is stable. Hypertensive 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 ([facility]) - Uric acid; Future - Magnesium; Future - Vitamin D 25 hydroxy; Future - Parathyroid Hormone, intact; Future - Phosphorus; Future Check chronic kidney disease labs Cardiomyopathy ([facility]) Stable. Follow up with senior biostatistician/group leader Stage 4 chronic kidney disease ([facility]) - Vitamin D 25 hydroxy; Future Check chronic kidney disease labs Type 2 diabetes mellitus without complication, without long-term current use of insulin ([facility]) - Hemoglobin A1c; Future Check A1c. Last A1c was 6.5% with diet control only. documented in this encounter [facility] Attending History and physical note H&P reviewed. The patient was examined and there are no changes to the H&P. Source Note - Garland Rose MD - 02/26/2024 9:45 AM EDT Images from the original note were not included. Referring Provider: Adri Mckenzie MD Reason for Consult: Generator change History of Present Illness: Donovan Jacome is a 88 y.o. year old male patient with a history significant for dilated cardiomyopathy status post ICD, hypertension, hyperlipidemia who is referred by Dr. Mckenzie for generator change for device at [facility]. 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 He has an atrial pacesetter lead as well as a Riata lead in the RV. He has chronic atrial lead noise reversion episodes. He has 98% atrial paced and ventricular plate paced less than 1% the time. His device reached [facility] in January 2024. He is here today [...] Last device interrogation 02/05/2024 shows device at [facility], predominantly atrial paced, minimal ventricular pacing, leads [...] his ICD, initially placed in 2002, at [facility]. He will need a generator change. He [...] routine generator change of his device at [facility]. His device will reach end-of-life in April. The risks and benefits of generator change were discussed in detail, including infection, bleeding, hematoma, damage to the existing leads, etc. The patient is agreeable to move forward with generator change. Name: Donovan Jacome Attending: Garland Rose MD Procedure: ICD generator change Date desired: As soon as possible Diagnosis: Device at [facility] Vendor if applicable: [employer] Expected anesthesia: RN [...] me with any further questions or concerns. Garland Rose MD Clinical Cardiac Magazine Feeder, [facility] Cavalier Appeals Officerdope mixer, [facility] [employer] Director of Atrial Fibrillation Ablation, [facility] Captain of Ventricular Arrhythmias Research, [facility] Work Phone: 03-04-2024 History and physical note H&P reviewed. The patient was examined and there are no changes to the H&P. Source Note - Garland Rose MD - 02/26/2024 9:45 AM EDT Images from the original note were not included. Referring Provider: Adri Mckenzie MD Reason for Consult: Generator change History of Present Illness: Donovan Jacome is a 88 y.o. year old male patient with a history significant for dilated cardiomyopathy status post ICD, hypertension, hyperlipidemia who is referred by Dr. Mckenzie for generator change for device at [facility]. 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 He has an atrial pacesetter lead as well as a Riata lead in the RV. He has chronic atrial lead noise reversion episodes. He has 98% atrial paced and ventricular plate paced less than 1% the time. His device reached [facility] in January 2024. He is here today [...] Last device interrogation 02/05/2024 shows device at [facility], predominantly atrial paced, minimal ventricular pacing, leads [...] his ICD, initially placed in 2002, at [facility]. He will need a generator change. He [...] routine generator change of his device at [facility]. His device will reach end-of-life in April. The risks and benefits of generator change were discussed in detail, including infection, bleeding, hematoma, damage to the existing leads, etc. The patient is agreeable to move forward with generator change. Name: Donovan Jacome Attending: Garland Rose MD Procedure: ICD generator change Date desired: As soon as possible Diagnosis: Device at [facility] Vendor if applicable: [employer] Expected anesthesia: RN [...] me with any further questions or concerns. Garland Rose MD Clinical Cardiac Magazine Feeder, [facility] Cavalier Appeals Officerdope mixer, [facility] [employer] Director of Atrial Fibrillation Ablation, [facility] Captain of Ventricular Arrhythmias Research, [facility] Office documented in this encounter [facility] Work Phone: 03-04-2024 Nurse Note Discharge instructions reviewed with patient and son. Discussed in depth post procedure restrictions and follow up appointments. Questions and concerns addressed. Left upper chest remains stable and unchanged. Plan to dc home. [facility] Work Phone: 03-04-2024 Nurse Note Discharge [...] continue to monitor. documented in this encounter [facility] Work Phone: 03-04-2024 Nurse Note Patient returned from EP lab, sp ICD gen change. Left upper chest incision closed with aquacel dressing and CDI. Ice pack applied to site. Patient A&Ox4 and has no c/o at this time. VSS. Family at bedside, will continue to monitor. [facility] Work Phone: 03-04-2024 Hospital Discharge instructions MELVIN Pineda - 03/04/2024 3:39 PM EDT Images from [...] have been instructed by the device company insurance sales representative regarding remote home monitoring. There are [...] after visit summary documented in this encounter [facility] Work Phone: 03-04-2024 Note Formatting of this n ote might be different from the original. Sedation Plan ASA 2 Mallampati class: I. Risks, benefits, and alternatives discussed with patient. [facility] Work Phone: 03-04-2024 Miscellaneous Notes Sedation Plan ASA 2 Mallampati class: I. Risks, benefits, and alternatives discussed with patient. documented in this encounter [facility] Work Phone: 02-26-2024 History of Present [...] Mckenzie for generator change for device at [facility]. 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 He has an atrial pacesetter lead as well as a Riata lead in the RV. He has chronic atrial lead noise reversion episodes. He has 98% atrial paced and ventricular plate paced less than 1% the time. His device reached [facility] in January 2024. He is here today [...] Last device interrogation 02/05/2024 shows device at [facility], predominantly atrial paced, minimal ventricular pacing, leads [...] his ICD, initially placed in 2002, at [facility]. He will need a generator change. He [...] routine generator change of his device at [facility]. His device will reach end-of-life in April. The risks and benefits of generator change were discussed in detail, including infection, bleeding, hematoma, damage to the existing leads, etc. The patient is agreeable to move forward with generator change. Name: Donovan Jacome Attending: Garland Rose MD Procedure: ICD generator change Date desired: As soon as possible Diagnosis: Device at [facility] Vendor if applicable: [employer] Expected anesthesia: RN [...] me with any further questions or concerns. Garland Rose MD Clinical Cardiac Magazine Feeder, [facility] V[facility] Cavalier Appeals Officerdope mixer, [facility] [employer] Director of Atrial Fibrillation Ablation, [facility] Captain of Ventricular Arrhythmias Research, [facility] Office documented in this encounter [facility] Work Phone: 11-05-2023 History of Present [...] Scribe Attestation By signing my name below, I, Aleena Hewitt LPN Scribe attest that this documentation has [...] discussion and plan. documented in this encounter [facility] Work Phone: 11-05-2023 Instructions Dex Crump [...] of your visit. documented in this encounter [facility] Work Phone: 08-06-2023 History of Present [...] and renal disease with (congestive) heart failure ([facility]) - TSH; Future - Comprehensive metabolic panel; Future Blood pressure at goal. Continue current regimen. Check CMP and TSH. Hyperlipidemia, unspecified hyperlipidemia type - Lipid panel; Future Check lipid panel Stage 4 chronic kidney disease ([facility]) TSH; Future Check TSH and CMP. Type 2 diabetes mellitus without complication, without long-term current use of insulin ([facility]) - Hemoglobin A1c; Future - TSH; Future Check A1c. Hyperparathyroidism ([facility]) Check kidney function test. Malignant melanoma of scalp or neck ([facility]) He does not want to go back to see the specialist. I am not sure what surgery the specialist had planned Longstanding persistent atrial fibrillation ([facility]) Seems to be in sinus rhythm now. Continue Eliquis Paroxysmal atrial fibrillation ([facility]) Microalbuminuric diabetic nephropathy ([facility]) Check labs documented in this encounter [facility] 05-29-2023 History of Present illness Narrative Subjective [...] orders for this visit: Paroxysmal atrial fibrillation ([facility]) - Protime & INR; Future New order for protime and INR given to the patient. I will also fax to the [facility] [place]. Hypertensive 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 ([facility]) - Comprehensive metabolic panel; Future Check CMP. [...] complication, without long-term current use of insulin ([facility]) - Hemoglobin A1c; Future Check A1c Arteriosclerotic vascular disease - Lipid panel; Future Check lipid panel documented in this encounter [facility] [employer] [facility] Evaluation note No assessment inform ation available [facility] Work Phone: Evaluation note N/A Dept. of Dermato logy Evaluation note Diagnosis Longstanding persistent atrial fibrillation (CMS-HCC)- Primary documented in this encounter [facility] SystemEvaluation note* Diagnosis Hypertensive heart and [...] fibrillation (CMS-HCC) Atrial fibrillation Microalbuminuric diabetic nephropathy ([facility]) documented in this encounter [facility] SystemEvaluation note* Diagnosis Type 2 diabetes mellitus without complication, without long-term current use of insulin (CMS-HCC)- Primary 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) documented in this encounter [facility] SystemEvaluation note* Diagnosis Arteriosclerotic cardiovascular disease (ASCVD)- Primary Unspecified cardiovascular disease Essential hypertension Unspecified essential hypertension Mixed hyperlipidemia Ventricular tachycardia (Multi) Paroxysmal ventricular tachycardia ICD (implantable cardioverter-defibrillator) in place Dilated cardiomyopathy (Multi) Other primary cardiomyopathies Ischemic cardiomyopathy Other specified forms of chronic ischemic heart disease documented in this encounter [facility] Work Phone: Evaluation note* Diagnosis ICD (implantable cardioverter-defibrillator) in place Ventricular tachycardia (Multi) Paroxysmal ventricular tachycardia Ischemic cardiomyopathy Other specified forms of chronic ischemic heart disease ICD (implantable cardioverter-defibrillator) in place Ventricular tachycardia (Multi) Paroxysmal ventricular tachycardia ICD (implantable cardioverter-defibrillator) in place Ventricular tachycardia (Multi) Paroxysmal ventricular tachycardia documented in this encounter [facility] Work Phone: Evaluation note* Diagnosis ICD (implantable cardioverter-defibrillator) in place- Primary Ventricular tachycardia (Multi) Paroxysmal ventricular tachycardia documented in this encounter [facility] Work Phone: Evaluation note* Diagnosis Hypertension associated with 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 ([facility]-HCC)- Primary Hypertensive 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 ([facility]) Cardiomyopathy ([facility]) Stage 4 chronic kidney disease ([facility]) Type 2 diabetes mellitus without complication, without long-term current use of insulin ([facility]) documented in this encounter [facility] SystemEvaluation note* Diagnosis Vitamin D deficiency- Primary documented in this encounter [facility] SystemEvaluation note* Diagnosis Longstanding persistent atrial fibrillation ([facility]-H[facility])- Primary documented in this encounter [facility] SystemEvaluation note* Diagnosis Sensorineural hearing loss, bilateral- Primary documented in this encounter [facility] HealthcareEvaluation note* Diagnosis Paroxysmal atrial fibrillation ([facility])- Primary Atrial fibrillation Hypertensive 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 ([facility]) Essential hypertension Unspecified essential hypertension Hypothyroidism, unspecified type Type 2 diabetes mellitus without complication, without long-term current use of insulin ([facility]) Arteriosclerotic vascular disease Generalized and unspecified atherosclerosis documented in this encounter [facility] SystemHistory of Present illness Narrative* Patient [...] the above we will continue as is. [facility] Monkimun DO Work Phone: History of Present illness [...] the above we will continue as is. [facility] [employer] 250 DO Work Phone: History of Present [...] [facility] Work Phone: History of Present illness Narrative* [...] significant cardiac hx with decreased cardiac function [facility] Work Phone: History of Present illness NarrativePatient [...] believe his cardiac status to be stable.- [facility] 250 DO Work Phone: History of Present [...] we suggested continued therapy as before without change.-[facility]Shahzad 250 DO Work Phone: InstructionsNot on filedocumented in this encounter [facility] filedocument[facility] in this [facility] on filedocumented in this encounter [facility] filedocumented in this encounter [facility]ructionsNot on filedocumented in this encounter [facility] SystemReason for referral (narrative)* Name Reason for referral NA NA Dept. of Dermatology Reason for referral (narrative)* Consultation (Routine) - Authorized Specialty Diagnoses / Procedures Referred By Nuvia ware Referred To Contact Cardiology Diagnoses Arteriosclerotic cardiovascular disease (ASCVD) Procedures Follow Up In Cardiology Aidan Langston MD [address] [place], [place] [address] [address] Adri Mckenzie MD 3 [facility] 2, [address] [address] Referral ID Status Reason Start Date Expiration Date V isits Requested Visits Authorized [id number] Authorized 11/05/2023 11/04/2024 1 1 T [facility] Work Phone: Reason for visit Narrative* Auth/Cert Specialty Diagnoses / Procedures Referred By Nuvia t Referred To Contact Diagnoses ICD (implantable cardioverter-defibrillator) in place Ventricular tachycardia (Multi) ICD (implantable cardioverter-defibrillator) in place [Z95.810] Ventricular tachycardia (Multi) [I47.20] Procedures AL RMVL IMPLTBL DFB PLSE GEN W/RPLCMT PLSE GEN 2 LD ICD DC Generator Change Garland Rose MD [address] [place] [address] [place] [facility] [address] [place] [address] Referral ID Status Reason Start Date Expiration Date Visits Re quested Visits Authorized [id number] 1 1 [facility] Work Phone: Summary Purpose Family History [...] cardioverter-defibrillator) in place Procedures ECG 12 Lead Garland Rose MD [address] [place] [address] Referral ID Status Reason Start Date Expiration Date V isits Requested Visits Authorized [id number] Authorized 02/26/2024 02/25/2025 1 1 Specialty Diagnoses / Procedures Referred By Contlogan t Referred To Contact Cardiology Diagnoses ICD (implantable cardioverter-defibrillator) in place Procedures Cardiac Device Check - In Clinic Aleena Fairbanks, [employer] [address] [facility] [address], [address] [address] Referral ID Status Reason Start Date Expiration Date Visits Requested Visits Authorized [id number] Pending Review Perform Procedure 03/04/2025 1 1 Specialty Diagnoses / Procedures Referred By Nuvia ware Referred To Contact Cardiology Diagnoses ICD (implantable cardioverter-defibrillator) in place Procedures Follow Up In Cardiology Aleena Fairbanks, [employer]PUT[employer] [address] [facility] [address] [place] [address] Referral ID Status Reason Start Date Expiration Date V isits Requested Visits Authorized [id number] Authorized 03/04/2024 03/04/2025 1 1 Additional Source Comments (unrecognized sect ion and content) No Status Records FoundNo Status Records FoundNo Status Records FoundNo Status Records FoundNo Status Records FoundNo Status Records FoundNo Status Records FoundNo Status Records FoundNo Status Records FoundNo Status Records FoundNo Status Records FoundNo Status Records Found INFORMATION SOURCE (unrecogn ized section and content) DATE CREATED AUTHOR 08/08/2019 [facility] DATE CREATED AUTHOR AUTHOR'S ORGANIZ ATION 02/27/2020 [facility] DATE CREATED AUTHOR AUTHOR'S ORGANIZ ATION 08/24/2021 [facility] DATE CREATED AUTHOR AUTHOR'S ORGANIZ ATION 10/27/2022 [facility] DATE CREATED AUTHOR AUTHOR'S ORGANIZ ATION 01/14/2023 [facility] DATE CREATED AUTHOR AUTHOR'S ORGANIZ ATION 03/06/2024 [facility] DATE CREATED AUTHOR AUTHOR'S ORGANIZ ATION 03/06/2024 [facility] DATE CREATED AUTHOR AUTHOR'S ORGANIZ ATION 03/08/2024 [facility] DATE CREATED AUTHOR AUTHOR'S ORGANIZ ATION 03/09/[address] [facility] DATE CREATED AUTHOR AUTHOR'S ORGANIZ ATION 03/13/2024 [facility] DATE CREATED AUTHOR AUTHOR'S ORGANIZ ATION 04/18/2024 [facility] DATE CREATED AUTHOR AUTHOR'S ORGANIZ ATION 06/26/2024 [facility] [employer] Care Teams (unrecognized sec tion and content) Team Status: Active Member Role Status Dates Phil Morin DO Primary Care Provider Active Team Status: Inactive Member Role Status Dates Phil Morin DO Primary Care Provider Active Aidan Langston MD Attending Provider Active Team Status: Inactive Member Role Status Dates Phil Morin DO Primary Care Provider Active Start: June 28, 2023 End: June 28, 2023 Aidan Langston MD Attending Provider Active Start: June 28, 2023 End: June 28, 2023 Manager Product Support Relationship Specialty Start Date End Date Phil Morin DO [address] [place] [address] PCP - General Family Medicine 03/07/22 Manager Product Support Relationship Specialty Start Date End Date Phil Morin DO [address] [place] [address] PCP - General Family Medicine 03/07/22 Manager Product Support Relationship Specialty Start Date End Date Phil Morin DO [address] [place] [address] PCP - General Family Medicine 03/07/22 Manager Product Support Relationship Specialty Start Date End Date Phil Morin DO [address] [place] [address] PCP - General Family Medicine 03/07/22 Team Status: Inactive Member Role Status Dates Phil Morin DO Primary Care Provider Active Start: September 27, 2023 End: September 27, 2023 Aidan Langston MD Attending Provider Active Start: September 27, 2023 End: September 27, 2023 Manager Product Support Relationship Specialty Start Date End Date Phil Morin DO [address] [place] [address] PCP - General 05/06/14 Team Status: Inactive Member Role Status Dates Phil Morin DO Primary Care Provider Active Start: December 27, 2023 End: December 27, 2023 Aidan Langston MD Attending Provider Active Start: December 27, 2023 End: December 27, 2023 Team Status: Inactive Member Role Status Dates Phil Morin DO Primary Care Provider Active Start: February 05, 2024 End: February 05, 2024 Adri Mckenzie MD Attending Provider Active Start: February 05, 2024 End: February 05, 2024 Manager Product Support Relationship Specialty Start Date End Date Phil Morin DO [address] [place] [address] PCP - General Family Medicine 02/26/24 Manager Product Support Relationship Specialty Start Date End Date Phil Morin DO [address] [place] [address] PCP - General Family Medicine 02/26/24 Manager Product Support Relationship Specialty Start Date End Date Phil Morin DO [address] [place] [address] PCP - General Family Medicine 03/07/22 Manager Product Support Relationship Specialty Start Date End Date Phil Morin MD [address] [place] [address] PCP - General Family Medicine 06/24/24 Manager Product Support Relationship Specialty Start Date End Date Phil Morin MD [address] [place] [address] PCP - General Family Medicine 06/24/24 Goals (unrecognized section and content) Goals may [...] (unrecogniz ed section and content) Reason Comments Hypertension Hyperlipidemia Reason Comments Follow-up 9m Reason Comments Rapid Heart Rate Specialty Diagnoses / Procedures Referred By Contac t Referred To Contact Cardiology Diagnoses ICD (implantable cardioverter-defibrillator) in place Ventricular tachycardia (Multi) Ischemic cardiomyopathy Adri Mckenzie MD [address] [place] [address] Referral ID Status Reason Start Date Expiration Date Visits Requested Visits Authorized [id number] Authorized Specialty Services Required 02/12/2024 02/11/2025 1 1 Reason Comments concerns about meds and blood pressure Scheduled Active and Recently Administ ered Medications [...] %) injection (CANCELED) As needed, Starting on 10/15/24 at 1506, Intraprocedure 1506 (Given - Provid er: Garland Rose MD) midazolam (Versed) injection (CANCELED) As [...] BE BASED ON THE PRIMARY CLINICAL RECORDS. [employer] provides no warranty or guarantee of the accuracy or completeness of information in this document.
[2024-07-02 09:53] LABS: INR 2.48
== END 2024-07-02 09:09 | disposition home or self-care (01) ==
LOC: LAB 09:09
PROVIDERS: PCP Family Medicine; Visit Provider Family Medicine
DX: I48.11 Longstanding persistent atrial fibrillation (principal)
CPT/HCPCS: 36415; 85610

== ENCOUNTER 2024-07-30 12:46 | Outpatient (OUT) | payer MEDICARE, SELFPAY ==
--- OUTSIDE RECORDS SUMMARY | 2024-07-30 13:09 | XMS_ITS | CCD ---
Author Organization [facility] CliniSysd Care Team Providers Care Court Transcriber Name Role Phone Phil Morin Unavailable Unavailable Unavailable RonnellloDO Phil pool Primary Care Provider [phone] MD Aidan Langston Attending Provider Karlie Craig [...] Unavailable Furlong, DO Villarreal Primary Care Provider [phone] MD Aidan Langston Attending Provider Furyrn, DO Villarreal Primary Care Provider MD Aidan Langston Attending Provider Furlong, DO Villarreal Primary Care Provider MD Aidan Langston Attending Provider [facility] PATEL Primary Care Provider Patience, DO Villarreal Primary Care Provider MD Aidan Langston Attending Provider MD Adri Mckenzie Attending Provider [place] Phil PATEL Primary Care Provider GARLAND ROSE Attending Unavailable FURLONG, PHIL ADWOA Primary Care [...] Care Unavailable Aidan Langston Attending Unavail able McGuinAidan amaya Admitting Unavail able McGuinnAidan Admitting Unavail able Furlong, Phil Primary Care Unavailable McGAidan betancourt Attending Unavail able McGuinnAidan Admitting Unavail able Furlong, Phil Primary Care Unavailable Aidan Langston Attending Unavail able Furlong, Phil Primary Care Unavailable Traboulssi, Mourhaf Attending Unavailable Traboulssi, Chasf Admitting Unavailable Furlong DO, Phil G Primary Care Provider [phone] Phil Morin MD Primary Care Provider SWATI MEJIA Attending Unavailable SWATI MEJIA Attending Unavailable Allergies Allergy Classification Reported Allergen(s) Allergy Type Date of Onset Reaction(s) Facility (20 sources) Aspirin; Translations: [aspirin] Drug Allergy 2 GI bleeding, Other (See Comments) [facility] (1 source) No Alert Propensity to adverse [...] esomeprazole 20 mg delayed release oral capsule (10 sources) Proton Pump Inhibitor esomeprazo le (NexIUM) 20 mg capsule daily as needed. Active fluticasone propionate 0.05 mg/actuat metered dose nasal spray (18 sources) Corticosteroid Start: 07-19-2019 Fluticasone Propionate Active [...] (20 sources) Vitamin K Antagonist Start: 04-24-2014 End: 12-18-2023 take 1 tablet by mouth once daily [...] complication, without long-term current use of insulin ([facility]) , Hypertensive 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 ([facility]) Take 1 tablet (5 mg total) [...] Documented Da te Episodic/Chronic Acute myocardial infarction (19 sources) Myocardial infarction; Translations: [Acute myocardial infarction of unspecified site, episode of care unspecified] Onset: 03-07-2022 03-07-2022 Chronic Cancer of bladder (20 sources) Cancer in situ of urinary bladder; 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] Onset: 03-07-2022 03-07-2022 Chronic Cancer of brain and nervous system (12 sources) History of malignant neoplasm of brain; Translations: [Personal history of malignant neoplasm of brain] Episodic Cardiac dysrhythmias (20 sources) Ventricular tachycardia; Translations: [Paroxysmal ventricular tachycardia] Onset: 08-22-2021 Chronic Chronic kidney disease (20 sources) Chronic kidney disease, stage 4 (severe); Translations: [Chronic kidney disease] Onset: 06-03-2015 03-07-2022 Chronic Conduction disorders (20 sources) Automatic implantable cardiac defibrillator in situ; Translations: [Automatic implantable cardiac defibrillator in situ] Onset: 03-01-2023 11-05-2023 Chronic Coronary atherosclerosis and other heart disease (20 sources) History of myocardial infarction; Translations: [Old myocardial infarction] Onset: 03-07-2022 11-05-2023 Chronic Diabetes mellitus with complications (13 sources) Type 2 diabetes mellitus with diabetic nephropathy; Translations: [Microalbuminuric diabetic nephropathy] Onset: 08-16-2017 03-07-2022 Chronic Diabetes mellitus without complication (16 sources) Type 2 diabetes mellitus without complications; Translations: [Type 2 diabetes mellitus without complication] Onset: 06-03-2015 03-07-2022 Chronic Disorders of lipid metabolism (20 sources) Hyperlipidemia; Translations: [Other and unspecified hyperlipidemia] Onset: 06-03-2015 11-05-2023 Chronic Essential hypertension (20 sources) Essential hypertension; Translations: [Unspecified essential hypertension] Onset: 06-03-2015 11-05-2023 Chronic Glaucoma (10 sources) Glaucoma; Translations: [Unspecified glaucoma] Onset: 07-29-2015 03-07-2022 Chronic Hypertension with complications and secondary hypertension (16 sources) Hypertensive heart and chronic kidney disease with heart failure and stage 1 through stage 4 chronic kidney disease, or unspecified chronic kidney disease; Translations: [Hypertensive 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] Onset: 08-22-2021 03-07-2022 Chronic Malignant neoplasm without specification of site (19 sources) Malignant neoplastic disease; Translations: [Other malignant neoplasm without specification of site] Onset: 03-07-2022 03-07-2022 Chronic Melanomas of skin (20 sources) Malignant melanoma; Translations: [Melanoma of skin, site unspecified] Onset: 03-07-2022 03-07-2022 Chronic Neoplasms of unspecified nature or uncertain behavior (6 sources) Neoplasm of uncertain behavior of skin Onset: 03-23-2022 Episodic Nutritional deficiencies (11 sources) Vitamin D deficiency; Translations: [Vitamin D deficiency, unspecified] Onset: 02-08-2017 03-07-2022 Chronic Osteoporosis (10 sources) Osteoporosis; Translations: [Age-related osteoporosis without current pathological fracture] Onset: 03-07-2022 03-07-2022 Chronic Other acquired deformities (10 sources) Contracture of joint of left ankle; Translations: [Contracture, left ankle] Onset: 03-07-2022 03-07-2022 Chronic Other aftercare (12 sources) Drug therapy finding; Translations: [Long-term (current) use of other medications] Episodic Other diseases of kidney and ureters (10 sources) Renal mass; Translations: [Other specified disorders of kidney and ureter] Onset: 06-03-2015 03-07-2022 Chronic Other ear and sense organ disorders (10 sources) Asymmetrical sensorineural hearing loss; Translations: [Sensorineural hearing loss, bilateral] Onset: 03-07-2022 03-07-2022 Chronic Other ear and sense organ disorders (5 sources) Sensorineural hearing loss, bilateral; Translations: [Sensorineural hearing loss, bilateral] 06-24-2024 Chronic Other endocrine disorders (1 source) Hyperparathyroidism , unspecified; Translations: [Hyperparathyroidis m, unspecified] Onset: 03-07-2022 Chronic Other endocrine disorders (11 sources) Hyperparathyroidism ; Translations: [Hyperparathyroidis m, unspecified] Onset: 03-07-2022 03-07-2022 Chronic Gianna-; endo-; and myocarditis; cardiomyopathy (except that caused by tuberculosis or sexually transmitted disease) (20 sources) Cardiomyopathy; Translations: [Other primary cardiomyopathies] Onset: 03-01-2023 11-05-2023 Chronic Peripheral and visceral atherosclerosis (2 sources) Unspecified atherosclerosis; Translations: [Arteriosclerotic vascular disease] Onset: 03-07-2022 05-29-2023 Chronic Phlebitis; thrombophlebitis and thromboembolism (12 sources) H/O: Deep vein thrombosis; Translations: [Personal history of venous thrombosis and embolism] Episodic Residual codes; unclassified (1 source) No current problems or disability; Translations: [Other specified conditions influencing health status] Onset: 02-28-2022 Episodic Thyroid disorders (12 sources) Hypothyroidism, unspecified; Translations: [Hypothyroidism] Onset: 03-04-2018 03-07-2022 Chronic Transient cerebral ischemia (20 sources) Transient cerebral ischemia; Translations: [Unspecified transient cerebral ischemia] Onset: 03-07-2022 03-01-2023 Chronic Unclassified (2 sources) Ventricular tachycardia, unspecified (Multi); Translations: [Ventricular tachycardia, unspecified (Multi)] Onset: 03-01-2023 Unclassified (1 source) Longstanding persistent atrial fibrillation; Translations: [Longstanding persistent atrial fibrillation] Onset: 09-19-2022 Unclassified (1 source) concerns about meds and blood pressure Onset: 05-29-2023 Unclassified (1 source) Ventricular tachycardia, unspecified; Translations: [Ventricular tachycardia, unspecified] Onset: 06-28-2023 Past or Other Problems Problem Classification Problem Date Documented Da te Episodic/Chronic Biliary tract disease (18 sources) Biliary colic; Translations: [Calculus of bile duct without cholangitis or cholecystitis without obstruction] Onset: 02-06-2020 07-19-2019 Episodic Cardiac dysrhythmias (15 sources) Palpitations; Translations: [Palpitations] Onset: 03-01-2023 03-01-2023 Episodic Crushing injury or internal injury (10 sources) Perinephric hematoma; Translations: [Minor contusion of unspecified kidney, initial encounter] Onset: 03-07-2022 03-07-2022 Episodic Mood disorders (10 sources) Mood disorders Onset: 05-29-2023 Resolved: 08-06-2023 08-06-2023 Other aftercare (3 sources) Taking high risk medication; Translations: [Other long term care phlebotomist (current) drug therapy] Onset: 03-01-2023 03-01-2023 Episodic Other gastrointestinal disorders (4 sources) Hemoperitoneum (nontraumatic); Translations: [Nontraumatic retroperitoneal hematoma] Onset: 05-29-2015 03-07-2022 Episodic Other gastrointestinal disorders (6 sources) Nontraumatic hemoperitoneum; Translations: [Nontraumatic retroperitoneal hematoma] Onset: 05-29-2015 03-07-2022 Episodic Other lower respiratory disease (20 sources) Dyspnea on exertion; Translations: [Shortness of breath] Onset: 03-01-2023 03-01-2023 Episodic Other non-epithelial cancer of skin (20 sources) Basal cell carcinoma of skin; Translations: [Basal cell carcinoma of skin of scalp and neck] Onset: 03-07-2022 03-07-2022 Episodic Other nutritional; endocrine; and metabolic disorders (10 sources) Hyperuricemia; Translations: [Hyperuricemia without signs of inflammatory arthritis and tophaceous disease] Onset: 02-08-2017 03-07-2022 Episodic Other skin disorders (10 sources) Actinic keratosis; Translations: [Actinic keratosis] Onset: [...] sensorineural hearing loss in the left ear. [facility] [employer] HGB A1C (GLYCO-HGB)on 2023 Glucose [Mass/Vol] 131 mg/dL Normal [facility] Comment on above: Performed By: #### H A1C, 38110-3, 7-1, 3084-1, 2731-8, 19122-5 #### [facility] ([id number]) [address] [place] [address], [address] [place] [address] HbA1c (Bld) [Mass fraction] 6.2 % High 4.4-5.6 [facility] Comment on above: Result Comment: NOTE ADA Guidelines Result HgbA1c Normal : less than 5.7 % Prediabetes : 5.7 % to 6.4 % Diabetes : > 6.4 % Use with caution in patients with abnormal hemoglobin variants as the half-life of red blood cells and in vivo glycation rates are affected. Performed By: #### H A1C, 22464-0, 2777-1, 3084-1, 2731-8, 59419-1 #### [facility] ([id number]) [address], [address] [place] [address] MAGNESIUMon 03-06-2024 Magnesium [Mass/Vol] 2.3 mg/dL Normal 1.8-2.6 [facility] Comment on above: Performed By: #### H A1C, 18897-2, 2777-1, 3084-1, 2731-8, 99534-4 #### [facility] ([id number]) [address], [address] [place] [address] PHOSPHORUSon 03-06-2024 Phosphate [Mass/Vol] 4.2 mg/dL Normal 2.4-4.9 [facility] Comment on above: Performed By: #### H A1C, 96634-9, 2777-1, 3084-1, 2731-8, 48963-6 #### [facility] ([id number]) [address], [address] [place] [address] Parathyrin.intact [Mass/Vol] on 03-06-2024 PTH INTACT 203 pg/mL High 12-88 [facility] Comment on above: Performed By: #### H A1C, 89366-6, 2777-1, 3084-1, 2731-8, 79635-9 #### [facility] ([id number]) [address], [address] [place] [address] URIC ACIDon 03-06-2024 Urate [Mass/Vol] 8.6 mg/dL High 2.6-7.2 [facility] Comment on above: Performed By: #### H A1C, 32420-6, 2777-1, 3084-1, 2731-8, 95053-9 #### [facility] ([id number]) [address], [address] [place] [address] Vitamin D+Metabolites [Mass/ Vol]on 03-06-2024 VITAMIN D 25 HYD TOT 27.9 ng/mL Low 30-100 [facility] Comment on above: Result Comment: Vitamin D status 25 [place] Vitamin D Deficiency <20 ng/mL Insufficiency 20-29 ng/mL Sufficiency 30-100 ng/mL Toxicity >100 ng/mL NOTE: A pediatric reference range has not been established by the management assistant of this kit. The [place] [employer] recommends a Vitamin D level of = or >20ng/mL in infants and children. Performed By: #### H A1C, 13619-8, 2777-1, 3084-1, 2731-8, 73849-4 #### [facility] ([id number]) [address] [place] [address], [address] [place] [id number] Basic metabolic 2000 panelon 03-04-2024 Anion gap [Moles/Vol] 13 mmol/L 10 - 20 mmol/L [facility] Calcium [Mass/Vol] 9.2 mg/dL 8.6 - 10. 3 mg/dL [facility] Chloride [Moles/Vol] 106 mmol/L 98 - 107 mmol/L [facility] CO2 [Moles/Vol] 25 mmol/L 21 - 32 mmol/L [facility] Creatinine [Mass/Vol] 2.31 mg/dL High 0.50 - 1.30 mg/dL [facility] GFR/1.73 sq M.predicted among non-blacks MDRD (S/P/Bld) [Vol rate/Area] 26 mL/min/{1.73_m2} Low - PINF [facility] Comment on above: Calculations of katey mated GFR are performed using the 2020 CKD-EPI Study Refit equation without the race variable for the IDMS-Traceable creatinine methods. https://jasn.asnjournals.org/content//ASN.72493846 88 Glucose [Mass/Vol] 106 mg/dL High 74 - 99 mg/dL [facility] Interpretation and review of laboratory results Abnormal [facility] Potassium [Moles/Vol] 4.1 mmol/L 3.5 - 5.3 mmol/L [facility] Sodium [Moles/Vol] 140 mmol/L 136 - 145 mmol/L [facility] Urea nitrogen [Mass/Vol] 45 mg/dL High 6 - 23 mg/dL [facility] Anion gap [Moles/Vol] 13 mmol/L Normal 10-20 [facility] Comment on above: Performed By: #### 2 4321-2 #### CRYSTAL JURADO ([id number]) [facility] ([facility]) [address] [place] [address] Calcium [Mass/Vol] 9.2 mg/dL Normal 8.6-10.3 [facility] Comment on above: Performed By: #### 2 4321-2 #### CRYSTAL JURADO ([id number]) [facility] ([facility]) [address] [place] [address] Chloride [Moles/Vol] 106 mmol/L Normal 98-107 [facility] Comment on above: Performed By: #### 2 4321-2 #### CRYSTAL JURADO ([id number]) [facility] ([facility]) [address] [place] [address]309 CO2 [Moles/Vol] 25 mmol/L Normal 21-32 [facility] Comment on above: Performed By: #### 2 4321-2 #### CRYSTAL JURADO ([id number]) [facility] ([facility]) [address] [place] [address]9747 Creatinine [Mass/Vol] 2.31 mg/dL High 0.50-1.30 [facility] Comment on above: Performed By: #### 2 4321-2 #### CRYSTAL JURADO ([id number]) [facility] ([facility]) [address] [place] [address]997 Glomerular filtration rate/1.73 sq M.predicted 26 mL/min/1.73m*2 Low >60 [facility] Comment on above: Result Comment: Calc ulations of estimated GFR are performed using the 2020 CKD-EPI Study Refit equation without the race variable for the IDMS-Traceable creatinine methods. https://jasn.asnjournals.org/content//ASN.32165550 88 Performed By: #### 2 4321-2 #### CRYSTAL JURADO ([id number]) [facility] ([facility]) [address] [place] [address] 36883 Glucose [Mass/Vol] 106 mg/dL High 74-99 [facility] Comment on above: Performed By: #### 2 4321-2 #### CRYSTAL JURADO ([id number]) [facility] ([facility]) [address] [place] [address]83 Potassium [Moles/Vol] 4.1 mmol/L Normal 3.5-5.3 [facility] Comment on above: Performed By: #### 2 4321-2 #### CRYSTAL JURADO ([id number]) [facility] ([facility]) [address] [place] [address] Sodium [Moles/Vol] 140 mmol/L Normal 136-145 [facility] Comment on above: Performed By: #### 2 4321-2 #### CRYSTAL JURADO ([id number]) [facility] ([facility]) [address] [place] [address] 55689 Urea nitrogen [Mass/Vol] 45 mg/dL High 6-23 [facility] Comment on above: Performed By: #### 2 4321-2 #### CRYSTAL JURADO ([id number]) [facility] ([facility]) [address] [place] [address] 78661 CBC panel Auto (Bld)on 03-04 Erythrocyte distribution width (RBC) [Ratio] 14.9 % High 11.5 - 14.5 % [facility] Hematocrit (Bld) [Volume fraction] 38.8 % Low 41.0 - 52.0 % [facility] Hemoglobin (Bld) [Mass/Vol] 12.6 g/dL Low 13.5 - 17.5 g/dL [facility] Interpretation and review of laboratory results Abnormal [facility] MCH (RBC) [Entitic mass] 28.7 pg 26.0 - 34.0 pg [facility] MCHC (RBC) [Mass/Vol] 32.5 g/dL 32.0 - 36.0 g/dL [facility] MCV (RBC) [Entitic vol] 88 fL 80 - 100 fL [facility] Nucleated RBC/100 WBC (Bld) [Ratio] 0.0 % [facility] Platelets (Bld) [#/Vol] 185 10*3/uL [facility] RBC (Bld) [#/Vol] 4.39 10*6/uL Low [facility] WBC (Bld) [#/Vol] 7.3 10*3/uL [facility] Erythrocyte distribution width (RBC) [Ratio] 14.9 % High 11.5-14.5 [facility] Comment on above: Performed By: #### 5 8410-2 #### CRYSTAL JURADO ([id number]) [facility] ([facility]) [address] [place] [address]2585 Hematocrit (Bld) [Volume fraction] 38.8 % Low 41.0-52.0 [facility] Comment on above: Performed By: #### 5 8410-2 #### CRYSTAL JURADO ([id number]) [facility] ([facility]) [address] [place] [address] Hemoglobin (Bld) [Mass/Vol] 12.6 g/dL Low 13.5-17.5 [facility] Comment on above: Performed By: #### 5 8410-2 #### CRYSTAL JURADO ([id number]) [facility] ([facility]) [address] [place] [address] 37600 MCH (RBC) [Entitic mass] 28.7 pg Normal 26.0-34.0 [facility] Comment on above: Performed By: #### 5 8410-2 #### CRYSTAL JURADO ([id number]) [facility] ([facility]) [address] [place] [address] 35456 MCHC (RBC) [Mass/Vol] 32.5 g/dL Normal 32.0-36.0 [facility] Comment on above: Performed By: #### 5 8410-2 #### CRYSTAL JURADO ([id number]) [facility] ([facility]) [address] [place] [address] 74383 MCV (RBC) [Entitic vol] 88 fL Normal 80-100 [facility] Comment on above: Performed By: #### 5 8410-2 #### CRYSTAL JURADO ([id number]) [facility] ([facility]) [address] [place] [address] 98684 Nucleated RBC/100 WBC (Bld) [Ratio] 0.0 /100 WBCs Normal 0.0-0.0 [facility] Comment on above: Performed By: #### 5 8410-2 #### CRYSTAL JURADO ([id number]) [facility] ([facility]) [address] [place] [address] 46919 Platelets (Bld) [#/Vol] 185 x10*3/uL Normal 150-450 [facility] Comment on above: Performed By: #### 5 8410-2 #### CRYSTAL JURADO ([id number]) [facility] ([facility]) [address] [place] [address] 43218 RBC (Bld) [#/Vol] 4.39 x10*6/uL Low 4.50-5.90 [facility] Comment on above: Performed By: #### 5 8410-2 #### CRYSTAL JURADO ([id number]) [facility] ([facility]) [address] [place] [address] 92465 WBC (Bld) [#/Vol] 7.3 x10*3/uL Normal 4.4-11.3 [facility] Comment on above: Performed By: #### 5 8410-2 #### CRYSTAL JURADO ([id number]) [facility] ([facility]) [address] [place] [address] [place] [address] ECG 12-LEADon 03-04-2024 ECG 12-LEAD Ventricular Rate 73 Atrial Rate 71 QRS Duration 142 Q-T Interval 588 QTC Calculation(Bazett) 647 R [place] -27 T [place] 76 QRS Count 12 Q Onset 225 T Offset 519 QTC Fredericia 628 Diagnosis Atrial-paced rhythm Right bundle branch block 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) T wave abnormality, consider lateral ischemia Abnormal ECG When compared with ECG of 30-APR-2014 08:20, Right bundle branch block is now Present Confirmed by Abraham Lewis ([id number]) on 03/05/2024 11:49:54 AM Normal [facility] PT and aPTT panel Coag (PPP) on 03-04-2024 aPTT Coag (PPP) [Time] 42 s [facility] INR Coag (PPP) [Relative time] 2.3 {INR} High 0.9 - 1.1 [facility] Interpretation and review of laboratory results Abnormal [facility] PT Coag (PPP) [Time] 26.7 s [facility] The APTT is no longe r used for monitoring Unfractionated Heparin Therapy. For monitoring Heparin Therapy, use the Heparin Assay. [facility] aPTT Coag (PPP) [Time] 42 s [facility] 27-38 [facility] Comment on above: Order Comment: The A PTT is no longer used for monitoring Unfractionated Heparin Therapy. For monitoring Heparin Therapy, use the Heparin Assay. Performed By: #### 3 4529-8 #### CRYSTAL JURADO ([id number]) [facility] ([facility] [address] [place] [address]8401 INR Coag (PPP) [Relative time] 2.3 High 0.9-1.1 [facility] Comment on above: Order Comment: The A PTT is no longer used for monitoring Unfractionated Heparin Therapy. For monitoring Heparin Therapy, use the Heparin Assay. Performed By: #### 3 4529-8 #### CRYSTAL JURADO ([id number]) [facility] ([facility]) [address] [place] [address]169 PT Coag (PPP) [Time] 26.7 s High 9.8-12.8 [facility] Comment on above: Order Comment: The A PTT is no longer used for monitoring Unfractionated Heparin Therapy. For monitoring Heparin Therapy, use the Heparin Assay. Performed By: #### 3 4529-8 #### CRYSTAL JURADO ([id number]) [facility] ([facility]) [address] [place] [address] Blood type and Indirect anti body screen panel (Bld)on 02-26-2024 ABO group Nom (Bld) O [facility] Blood group antibody screen Ql Negative [facility] D Ag Ql (Bld) Positive [facility] Comment on above: 2nd ABO test require d. Order and Collect VERAB [facility] ABO group Nom (Bld) O Normal [facility] Comment on above: Order Comment: Speci men for compatibility testing requires full first and last name, MRN, , date, time of collection, and hat finishing materials preparer/turnstile collector's signature on tube(s) or it will be rejected. Please collect 1 lavender top-KEDTA OR 1 pink top-KEDTA and sign, date and time with the patient's full first and last name, MRN and . Performed By: #### 3 4532-2 #### CRYSTAL JURADO ([id number]) PILOT BLOOD [facility]) [address] [place] [address] Blood group antibody screen Ql Negative Normal [facility] Comment on above: Order Comment: Speci men for compatibility testing requires full first and last name, MRN, , date, time of collection, and hat finishing materials preparer/turnstile collector's signature on tube(s) or it will be rejected. Please collect 1 lavender top-KEDTA OR 1 pink top-KEDTA and sign, date and time with the patient's full first and last name, MRN and . Performed By: #### 3 4532-2 #### CRYSTAL LARA RIO YANET ([id number]) PILOT BLOOD [facility] ([facility]) [address] [place] [address] D Ag Ql (Bld) Positive Normal [facility] Comment on above: Order Comment: Speci men for compatibility testing requires full first and last name, MRN, , date, time of collection, and hat finishing materials preparer/turnstile collector's signature on tube(s) or it will be rejected. Please collect 1 lavender top-KEDTA OR 1 pink top-KEDTA and sign, date and time with the patient's full first and last name, MRN and . Result Comment: 2nd ABO test required. Order and Collect VERAB Performed By: #### 3 4532-2 #### CRYSTAL JURADO ([id number]) PILOT [facility]LOOD BANK (YBB) [address] [place] [address] ECG 12 Leadon 02-26-2024 Atrial paced, ventricular sensed rhythm, right bundle branch block, left anterior fascicular block, HR 75bpm [facility] Work Phone: COMPREHENSIVE METABOLIC PANE Donato 08-06-2023 Albumin [Mass/Vol] 4.2 g/dL Normal 3.2-5.3 [facility] Comment on above: Performed By: #### C RHETT, 72574-6, 3016-3 #### [facility] ([id number]) [address], [address] [place] [address] ALP [Catalytic activity/Vol] 77 U/L Normal 39-130 [facility] Comment on above: Performed By: #### C RHETT, 35812-8, 3016-3 #### [facility] ([id number]) [address], [address] [place] [address] ALT [Catalytic activity/Vol] 11 U/L Normal 0-40 [facility] Comment on above: Performed By: #### C RHETT, 12878-6, 3016-3 #### [facility] ([id number]) [address], [address] [place] [address] Anion gap [Moles/Vol] 8 mmol/L Normal 5-15 [facility] Comment on above: Performed By: #### Gorge DELANEY, 37097-1, 3015-3 #### [facility] ([id number]) [address], [address] [place] [address] AST [Catalytic activity/Vol] 19 U/L Normal 0-41 [facility] Comment on above: Performed By: #### Gorge DELANEY, 64379-1, 3015-3 #### [facility] ([id number]) [address], [address] [place] [address] Bilirubin [Mass/Vol] 0.5 mg/dL Normal 0.3-1.2 [facility] Comment on above: Performed By: #### Gorge DELANEY, 50731-1, 3015- #### [facility] ([id number]) [address], [address] [place] [address] Calcium [Mass/Vol] 9.1 mg/dL Normal 8.5-10.5 [facility] Comment on above: Performed By: #### Gorge DELANEY, 56766-2, 3015-3 #### [facility] ([id number]) [address], [address] [place] [address] Chloride [Moles/Vol] 106 mmol/L Normal 98-109 [facility] Comment on above: Performed By: #### Gorge DELANEY, 68475-9, 3015-3 #### [facility] ([id number]) [address], [address] [place] [address] CO2 [Moles/Vol] 26 mmol/L Normal 22-32 [facility] Comment on above: Performed By: #### Gorge DELANEY, 39054-5, 3015-3 #### [facility] ([id number]) [address], [address] [place] [address] Creatinine [Mass/Vol] 2.12 mg/dL High 0.60-1.30 [facility] Comment on above: Result Comment: METH OD TRACEABLE TO IDMS STANDARD Performed By: #### Gorge DELANEY, 65736-6, 3015-3 #### [facility] ([id number]) [address], [address] [place] [address] GFR/1.73 sq M.predicted among non-blacks MDRD (S/P/Bld) [Vol rate/Area] 29 mL/min/{1.73_m2} Low >59 [facility] Comment on above: Result Comment: Reported eGFR is based on the CKD-EPI 2020 equation that does not use a race coefficient. Performed By: #### Gorge DELANEY, 26668-0, 3015-3 #### [facility] ([id number]) [address], [address] [place] [address] Glucose [Mass/Vol] 113 mg/dL High 65-99 [facility] Comment on above: Performed By: #### Gorge DELANEY, 71257-9, 3015-3 #### [facility] ([id number]) [address] [place] [address] Potassium [Moles/Vol] 4.8 mmol/L Normal 3.5-5.0 [facility] Comment on above: Performed By: #### Gorge DELANEY, 25204-4, 3015-3 #### [facility] ([id number]) [address], [address] [place] [address] Protein [Mass/Vol] 7.0 g/dL Normal 6.0-8.0 [facility] Comment on above: Performed By: #### Gorge DELANEY, 50039-9, 3015-3 #### [facility] ([id number]) [address], [address] [place] [address] Sodium [Moles/Vol] 140 mmol/L Normal 134-146 [facility] Comment on above: Performed By: #### Gorge DELANEY, 47269-8, 3015-3 #### [facility] ([id number]) [address], [address] [place] [address] Urea nitrogen [Mass/Vol] 24 mg/dL Normal 5-27 [facility] Comment on above: Performed By: #### C , 40166-5, 3016-3 #### [facility] ([id number]) [address] [facility] [place] [address] Comprehensive metabolic pane donato 08-06-2023 Albumin [Mass/Vol] 4.2 g/dL 3.2 - 5.3 g/dL [facility] ALP [Catalytic activity/Vol] 77 U/L 39 - 130 U/L [facility] ALT No additional P-5'-P [Catalytic activity/Vol] 11 U/L 0 - 40 U/L [facility] Anion gap [Moles/Vol] 8 mmol/L 5 - 15 mmol/L [facility] AST [Catalytic activity/Vol] 19 U/L 0 - 41 U/L [facility] Bilirubin [Mass/Vol] 0.5 mg/dL 0.3 - 1.2 mg/dL [facility] Calcium [Mass/Vol] 9.1 mg/dL 8.5 - 10. 5 mg/dL [facility] Chloride [Moles/Vol] 106 mmol/L 98 - 109 mmol/L [facility] CO2 [Moles/Vol] 26 mmol/L 22 - 32 mmol/L [facility] Creatinine [Mass/Vol] 2.12 mg/dL High 0.60 - 1.30 mg/dL [facility] Comment on above: METHOD TRACEABLE TO [facility] STANDARD eGFR (CKD-EPI)non-race dependent 29 Low - PINF [facility] Comment on above: Reported eGFR is based on the CKD-EPI 2020 equation that does not use a race coefficient. Glucose [Mass/Vol] 113 mg/dL High 65 - 99 mg/dL [facility] Potassium [Moles/Vol] 4.8 mmol/L 3.5 - 5.0 mmol/L [facility] Protein [Mass/Vol] 7.0 g/dL 6.0 - 8.0 g/dL [facility] Sodium [Moles/Vol] 140 mmol/L 134 - 146 mmol/L [facility] Urea nitrogen [Mass/Vol] 24 mg/dL 5 - 27 mg/dL [facility] HGB A1C (GLYCO-HGB)on 2023 Glucose [Mass/Vol] 140 mg/dL Normal [facility] Comment on above: Performed By: #### Gorge DELANEY, 53293-8, 3016-3 #### [facility] ([id number]) [address] [place] [address], [address] [place] [address] HbA1c (Bld) [Mass fraction] 6.5 % High 4.4-5.6 [facility] Comment on above: Result Comment: NOTE ADA Guidelines Result HgbA1c Normal : less than 5.7 % Prediabetes : 5.7 % to 6.4 % Diabetes : > 6.4 % Use with caution in patients with abnormal hemoglobin variants as the half-life of red blood cells and in vivo glycation rates are affected. Performed By: #### Gorge DELANEY, 37612-1, 3016-3 #### [facility] ([id number]) [address] [place] [address], [facility] [address] [place] [address] Hemoglobin A1con 08-06-2023 Average glucose Estimated from glycated hemoglobin (Bld) [Mass/Vol] 140 mg/dL [facility] HbA1c (Bld) [Mass fraction] 6.5 % High 4.4 - 5.6 % [facility] Comment on above: NOTE ADA Guidelines Result HgbA1c Normal : less than 5.7 % Prediabetes : 5.7 % to 6.4 % Diabetes : > 6.4 % Use with caution in patients with abnormal hemoglobin variants as the half-life of red blood cells and in vivo glycation rates are affected. Interpretation and review of laboratory results Abnormal [facility] Lipid 1996 panelon Cholesterol [Mass/Vol] 91 mg/dL Low 150 - 200 mg/dL [facility] Cholesterol in HDL [Mass/Vol] 39 mg/dL Low 39 - PINF mg/dL [facility] Comment on above: HDL <40 mg/dL - High Risk HDL > or = 40mg/dL- Desirable HDL >60 mg/dL - Negative Risk Cholesterol in LDL [Mass/Vol] 18 mg/dL NINF - 130 mg/dL [facility] Comment on above: LDL <100 mg/dL - Desirable LDL >160 mg/dL - High Risk Cholesterol in VLDL [Mass/Vol] 34 mg/dL High 0 - 30 mg/dL [facility] Cholesterol.total/C holesterol in HDL [Mass ratio] 2.3 {ratio} 1.0 - 5.0 [facility] Triglyceride [Mass/Vol] 168 mg/dL High 27 - 150 mg/dL [facility] Cholesterol [Mass/Vol] 91 mg/dL Low 150-200 [facility] Comment on above: Performed By: ###[place], [address]-7, 3016-3 #### [facility] ([id number]) [address], [address] [place] [address] Cholesterol in HDL [Mass/Vol] 39 mg/dL Low >39 [facility] Comment on above: Result Comment: HDL <40 mg/dL - High Risk HDL > or = 40mg/dL- Desirable HDL >60 mg/dL - Negative Risk Performed By: ###[place], [address]-6, 3016-3 #### [facility] ([id number]) [address] [facility] [place] [address] Cholesterol in LDL [Mass/Vol] 18 mg/dL Normal <130 [facility] Comment on above: Result Comment: LDL <100 mg/dL - Desirable LDL >160 mg/dL - High Risk Performed By: #### Gorge DELANEY, 50972-3, 6-3 #### [facility] ([id number]) [address], [address] [place] [address] Cholesterol in VLDL [Mass/Vol] 34 mg/dL High 0-30 [facility] Comment on above: Performed By: #### Gorge DELANEY, 81361-8, 6-3 #### [facility] ([id number]) [address], [address] [place] [address] CHOLESTEROL:HDL 2.3 Normal 1.0-5.0 [facility] Comment on above: Performed By: #### Gorge DELANEY, 72358-8, 6-3 #### [facility] ([id number]) [address], [address] [place] [address] Triglyceride [Mass/Vol] 168 mg/dL High 27-150 [facility] Comment on above: Performed By: #### Gorge DELANEY, 18890-3, 6-3 #### [facility] ([id number]) [address], [address] [place] [address] No Panel Informationon 08-05 Interpretation and review of laboratory results Abnormal [facility] TSHon 08-06-2023 TSH Qn 3.12 m[IU]/L [facility] TSH Qnon 08-06-2023 [facility] TSH 3.12 uIU/mL Normal 0.49-4.67 [facility] Comment on above: Performed By: #### Gorge DELANEY, 34323-3, 6-3 #### [facility] ([id number]) [address] [facility], [address] [place] [address] Protime & INRon 07-18-2023 External Inr 2.02 [facility] External Protime 20.6 [facility] Office Visit (Cardiology)on 01-12-2023 Follow-up visit [...] a smoker Tobacco Use Screening; Status:Complete; Done: [id number] Ventricular tachycardia IO EKG Electrocardiogram- 12 Lead; Status:Complete; Done: [id number] Patient Instructions Please bring all medicines, vitamins, [...] negative for complaint. Vitals Vital Signs Recorded: [id number] 02:17PM Heart Rate72, Apical Orwlvagm878, RUE, Sitting Ydnubuooc81, RUE, Sitting Height5 ft 9 in Mibzdl751 lb BMI Mckgvdcdft54.78 kg/m2 BSA Calculated1.88 Tobacco Useb) No Falls [...] Jan 13 2023 2:45PM EST (Author) Normal [employer] Tobacco Screening.on 023 Fall risk assessment a) No falls within the last year [facility] [address] DO Work Phone: Tobacco use status CPHS b) No [facility] 250 DO Work Phone: PROTIMEon 10-17-2022 INR Coag (PPP) [Relative time] 2.38 {INR} Normal [facility] Comment on above: Performed By: #### P T #### [facility] [address] [place] [address] Dr. Sariah Boyle INR GUIDELINES SEE BELOW Normal [facility] Comment on above: Result Comment: NHUNG RED INR: 2.0 - 3.0 CONDITIONS NOT LISTED BELOW 2.5 - 3.5 FOR PROSTHETIC HEART VALVE REPLACEMENT 2.5 - 3.5 RECURRENT THROMBOSIS Performed By: #### P T #### [facility] [address] [address] [address] Sariah Boyle PT Coag (PPP) [Time] 24.0 s Critically high 9.0-11.6 [facility] Comment on above: Performed By: #### P T #### [facility] [address] [address] [address] Sariah Boyle PROTIMEon 09-15-2022 INR Coag (PPP) [Relative time] 2.18 {INR} Normal [facility] Comment on above: Performed By: #### P T #### [facility] [address] [place] [address] Dr. Sariah Boyle INR GUIDELINES SEE BELOW Normal [facility] Comment on above: Result Comment: NHUNG RED INR: 2.0 - 3.0 CONDITIONS NOT LISTED BELOW 2.5 - 3.5 FOR PROSTHETIC HEART VALVE REPLACEMENT 2.5 - 3.5 RECURRENT THROMBOSIS Performed By: #### P T #### [facility] [address] [place] [address] Dr. Sariah Boyle PT Coag (PPP) [Time] 22.1 s Critically high 9.0-11.6 [facility] Comment on above: Performed By: #### P T #### [facility] [address] [place] [address] Dr. Sariah Boyle PROTIMEon 08-15-2022 INR Coag (PPP) [Relative time] 2.44 {INR} Normal [facility] Comment on above: Performed By: #### P T #### [facility] [address] [place] [address] Dr. Sariah Boyle INR GUIDELINES SEE BELOW Normal [facility] Comment on above: Result Comment: NHUNG RED INR: 2.0 - 3.0 CONDITIONS NOT LISTED BELOW 2.5 - 3.5 FOR PROSTHETIC HEART VALVE REPLACEMENT 2.5 - 3.5 RECURRENT THROMBOSIS Performed By: #### P T #### [facility] [address] [place] [address] Dr. Sariah Boyle PT Coag (PPP) [Time] 24.6 s Critically high 9.0-11.6 [facility] Comment on above: Performed By: #### P T #### [facility] [address] [place] [address] Dr. Sariah Boyle PROTIMEon 07-18-2022 INR Coag (PPP) [Relative time] 2.33 {INR} Normal [facility] Comment on above: Performed By: #### P T #### [facility] [address] [place] [address] Dr. Sariah Boyle INR GUIDELINES SEE BELOW Normal [facility] Comment on above: Result Comment: NHUNG RED INR: 2.0 - 3.0 CONDITIONS NOT LISTED BELOW 2.5 - 3.5 FOR PROSTHETIC HEART VALVE REPLACEMENT 2.5 - 3.5 RECURRENT THROMBOSIS Performed By: #### P T #### [facility] [address] [place], [place] [address] Dr. Sariah Boyle PT Coag (PPP) [Time] 23.5 s Critically high 9.0-11.6 [facility] Comment on above: Performed By: #### P T #### [facility] [address] [place], [place] [address] Dr. Sariah Boyle Office Visit (Cardiology)on 07-14-2022 [...] negative for complaint. Vitals Vital Signs Recorded: [id number] 03:41PM Heart Rate80, L Radial Sdmdfawi868, LUE, Sitting Siugweoca12, LUE, Sitting Height5 ft 9 in Qyifnx627 lb BMI Kknbhemkoo99.92 kg/m2 BSA Calculated1.89 Tobacco Useb) No PHQ-2 [...] Electronically si (more content not included)... Normal [employer] Tobacco Screening.on 023 Adult depression screening assessment No [facility] [place] 250 DO Work Phone: Fall risk assessment a) No falls within the last year [facility] [place] 250 DO Work Phone: Tobacco use status CPHS b) No [facility] [employer] 250 DO Work Phone: PROTIMEon 07-04-2022 INR Coag (PPP) [Relative time] 1.91 {INR} Normal [facility] Comment on above: Performed By: #### P T #### [facility] [address] [address] [address] Sariah Boyle INR GUIDELINES SEE BELOW Normal [facility] Comment on above: Result Comment: NHUNG RED INR: 2.0 - 3.0 CONDITIONS NOT LISTED BELOW 2.5 - 3.5 FOR PROSTHETIC HEART VALVE REPLACEMENT 2.5 - 3.5 RECURRENT THROMBOSIS Performed By: #### P T #### [facility] [address] [place] [address] Dr. Sariah Boyle PT Coag (PPP) [Time] 19.5 s Critically high 9.0-11.6 [facility] Comment on above: Performed By: #### P T #### [facility] [address] [place] [address] Dr. Sariah Boyle No Panel Informationon 06-[address] [address] DO Work Phone: PROTIMEon 06-07-2022 INR Coag (PPP) [Relative time] 1.44 {INR} Normal [facility] Comment on above: Performed By: #### P T #### [facility] [address] [place] [address] Dr. Sariah Boyle INR GUIDELINES SEE BELOW Normal [facility] Comment on above: Result Comment: NHUNG RED INR: 2.0 - 3.0 CONDITIONS NOT LISTED BELOW 2.5 - 3.5 FOR PROSTHETIC HEART VALVE REPLACEMENT 2.5 - 3.5 RECURRENT THROMBOSIS Performed By: #### P T #### [facility] [address] [place] [address] Dr. Sariah Boyle PT Coag (PPP) [Time] 15.0 s Critically high 9.0-11.6 [facility] Comment on above: Performed By: #### P T #### [facility] [address] [place] [address] Dr. Sariah Boyle No Panel Informationon 06-[address] [address] DO Work Phone: PROTIMEon 05-08-2022 INR Coag (PPP) [Relative time] 2.06 {INR} Normal [facility] Comment on above: Performed By: #### P T #### [facility] [address] [place] [address] Dr. Sariah Boyle INR GUIDELINES SEE BELOW Normal [facility] Comment on above: Result Comment: NHUNG RED INR: 2.0 - 3.0 CONDITIONS NOT LISTED BELOW 2.5 - 3.5 FOR PROSTHETIC HEART VALVE REPLACEMENT 2.5 - 3.5 RECURRENT THROMBOSIS Performed By: #### P T #### [facility] [address] [address] [address] Sariah Boyle PT Coag (PPP) [Time] 21.2 s Critically high 9.0-11.6 [facility] Comment on above: Performed By: #### P T #### [facility] [address] [address] [address] Sariah Boyle PROTIMEon 04-07-2022 INR Coag (PPP) [Relative time] 3.37 {INR} Normal [facility] Comment on above: Performed By: #### P T #### [facility] [address] [place] [address] Dr. Sariah Boyle INR GUIDELINES SEE BELOW Normal [facility] Comment on above: Result Comment: NHUNG RED INR: 2.0 - 3.0 CONDITIONS NOT LISTED BELOW 2.5 - 3.5 FOR PROSTHETIC HEART VALVE REPLACEMENT 2.5 - 3.5 RECURRENT THROMBOSIS Performed By: #### P T #### [facility] [address] [address] [address] Sariah Boyle PT Coag (PPP) [Time] 33.6 s Critically high 9.0-11.6 [facility] Comment on above: Performed By: #### P T #### [facility] [address] [place] [address] Dr. Sariah Boyle Initial Visit (Otolaryngolog y)on [...] melanoma of the scalp History of Present Fkdbsrn40-flqe-uoy man referred by Dr. Kumari for management [...] Recorded: 03Apr2022 02:27PM Height5 ft 9 in Dbwagp480 lb BMI Oufgdqttta85.92 kg/m2 BSA Calculated1.89 Tobacco Useb) No Falls [...] Apr 19 2022 6:13AM EST (Author) Normal [employer] Tobacco Screening.on 022 Fall risk assessment a) No falls within the last year [facility] Work Phone: Tobacco use status CPHS b) No [facility] Work Phone: No Panel Informationon 03-23 [facility] Work Phone: PROTIMEon 03-06-2022 INR Coag (PPP) [Relative time] 2.08 {INR} Normal [facility] Comment on above: Performed By: #### P T #### [facility] [address] [place] [address] Dr. Sariah Boyle INR GUIDELINES SEE BELOW Normal [facility] Comment on above: Result Comment: NHUNG RED INR: 2.0 - 3.0 CONDITIONS NOT LISTED BELOW 2.5 - 3.5 FOR PROSTHETIC HEART VALVE REPLACEMENT 2.5 - 3.5 RECURRENT THROMBOSIS Performed By: #### P T #### [facility] [address] [place] [address] Dr. Sariah Boyle PT Coag (PPP) [Time] 21.4 s Critically high 9.0-11.6 [facility] Comment on above: Performed By: #### P T #### [facility] [address] [place] [address] Dr. Sariah Boyle PROTIMEon 02-03-2022 INR Coag (PPP) [Relative time] 1.83 {INR} Normal [facility] Comment on above: Performed By: #### P T #### [facility] [address] [place] [address] Dr. Sariah Boyle INR GUIDELINES SEE BELOW Normal [facility] Comment on above: Result Comment: NHUNG RED INR: 2.0 - 3.0 CONDITIONS NOT LISTED BELOW 2.5 - 3.5 FOR PROSTHETIC HEART VALVE REPLACEMENT 2.5 - 3.5 RECURRENT THROMBOSIS Performed By: #### P T #### [facility] [address] [address] [address] Sariah Boyle PT Coag (PPP) [Time] 19.0 s Critically high 9.0-11.6 [facility] Comment on above: Performed By: #### P T #### [facility] [address] [address] [address] Sariah Boyle PROTIMEon 01-02-2022 INR Coag (PPP) [Relative time] 2.05 {INR} Normal [facility] Comment on above: Performed By: #### P T #### [facility] [address] [place] [address] Dr. Sariah Boyle INR GUIDELINES SEE BELOW Normal [facility] Comment on above: Result Comment: NHUNG RED INR: 2.0 - 3.0 CONDITIONS NOT LISTED BELOW 2.5 - 3.5 FOR PROSTHETIC HEART VALVE REPLACEMENT 2.5 - 3.5 RECURRENT THROMBOSIS Performed By: #### P T #### [facility] [address] [place] [address] Dr. Sariah Boyle PT Coag (PPP) [Time] 21.1 s Critically high 9.0-11.6 [facility] Comment on above: Performed By: #### P T #### [facility] [address] [place] [address] Dr. Sariah Boyle Tobacco Screening.on 022 Adult depression screening assessment No [facility] 250 DO Work Phone: Fall risk assessment a) No falls within the last year [facility] 250 DO Work Phone: Tobacco use status CPHS b) No [facility] 250 DO Work Phone: PROTIMEon 12-02-2021 INR Coag (PPP) [Relative time] 2.22 {INR} Normal [facility] Comment on above: Performed By: #### P T #### [facility] [address] [place] [address] Dr. Sariah Boyle INR GUIDELINES SEE BELOW Normal [facility] Comment on above: Result Comment: NHUNG RED INR: 2.0 - 3.0 CONDITIONS NOT LISTED BELOW 2.5 - 3.5 FOR PROSTHETIC HEART VALVE REPLACEMENT 2.5 - 3.5 RECURRENT THROMBOSIS Performed By: #### P T #### [facility] [address] [place] [address] Dr. Sariah Boyle PT Coag (PPP) [Time] 22.8 s Critically high 9.0-11.6 [facility] Comment on above: Performed By: #### P T #### [facility] [address] [place] [address] Dr. Sariah Boyle PROTIMEon 11-18-2021 INR Coag (PPP) [Relative time] 1.95 {INR} Normal [facility] Comment on above: Performed By: #### P T #### [facility] [address] [place] [address] Dr. Sariah Boyle INR GUIDELINES SEE BELOW Normal [facility] Comment on above: Result Comment: NHUNG RED INR: 2.0 - 3.0 CONDITIONS NOT LISTED BELOW 2.5 - 3.5 FOR PROSTHETIC HEART VALVE REPLACEMENT 2.5 - 3.5 RECURRENT THROMBOSIS Performed By: #### P T #### [facility] [address] [place] [address] Dr. Sariah Boyle PT Coag (PPP) [Time] 20.2 s Critically high 9.0-11.6 [facility] Comment on above: Performed By: #### P T #### [facility] [address] [place] [address] Dr. Sariah Boyle COMPREHENSIVE METABOLIC PANE Donato 08-23-2021 Albumin [Mass/Vol] 4.1 g/dL Normal 3.6-5.1 [facility] Comment on above: Performed By: #### 1 1971, 4570 #### [facility] [address], [address] [place] [id number] Tavern Keeper: Jose Juan Arriola MD Albumin/Globulin [Mass ratio] 1.6 {ratio} Normal 1.0-2.5 [facility] Comment on above: Performed By: #### 1 0231, 7600 #### [facility] of [address], [address] [place] [address] Tavern Keeper: Jose Juan Arriola MD ALP [Catalytic activity/Vol] 61 U/L Normal 35-144 [facility] Comment on above: Performed By: #### 1 0231, 7600 #### [facility] of [address], [address] [place] [address] Tavern Keeper: Jose Juan Arriola MD ALT [Catalytic activity/Vol] 9 U/L Normal 9-46 [facility] Comment on above: Performed By: #### 1 0231, 7600 #### [facility] of [address] [place] [address] Tavern Keeper: Jose Juan Arriola MD AST [Catalytic activity/Vol] 14 U/L Normal 10-35 [facility] Comment on above: Performed By: #### 1 0231, 7600 #### [facility] of [address] [place] [address] Tavern Keeper: Jos eJuan Arriola MD Bilirubin [Mass/Vol] 0.6 mg/dL Normal 0.2-1.2 [facility] Comment on above: Performed By: #### 1 0231, 7600 #### [facility] of [place] [address] Tavern Keeper: Jose Juan Arriola MD Calcium [Mass/Vol] 9.1 mg/dL Normal 8.6-10.3 [facility] Comment on above: Performed By: #### 1 0231, 7600 #### [facility] of [address], [address] [place] [address] Tavern Keeper: Jose Juan Arriola MD Chloride [Moles/Vol] 109 mmol/L Normal 98-110 [facility] Comment on above: Performed By: #### 1 0231, 7600 #### [facility] of [address], [address] [place] [address] Tavern Keeper: Jose Juan Arriola MD CO2 [Moles/Vol] 26 mmol/L Normal 20-32 [facility] Comment on above: Performed By: #### 1 023, 7600 #### [facility] [address], [address] [place] [address] Tavern Keeper: Jose Juan Arriola MD Creatinine [Mass/Vol] 2.15 mg/dL High 0.70-1.11 [facility] Comment on above: Result Comment: For patients >49 years of age, the reference limit for Creatinine is approximately 13% higher for people identified as -Guinean. Performed By: #### 1 023, 7600 #### [facility] of [address], [address] [place] [address] Tavern Keeper: Jose Juan Arriola MD eGFR NON-AFR. AUSTRALIAN 27 mL/min/1.73m2 Low > OR = 60 [facility] Comment on above: Performed By: #### 1 023, 7600 #### [facility] of [address], [address] [place] [address] Tavern Keeper: Jose Juan Arriola MD GFR/1.73 sq M.predicted among blacks MDRD (S/P/Bld) [Vol rate/Area] 31 mL/min/{1.73_m2} Low > OR = 60 [facility] Comment on above: Performed By: #### 1 023, 7600 #### [facility] of [address], [address] [place] [address] Tavern Keeper: Jose Juan Arriola MD Globulin (S) [Mass/Vol] 2.5 g/dL Normal 1.9-3.7 [facility] Comment on above: Performed By: #### 1 023, 7600 #### [facility] of [address], [address] [place] [address] Tavern Keeper: Jose Juan Arriola MD Glucose [Mass/Vol] 93 mg/dL Normal 65-99 [facility] Comment on above: Result Comment: Fasting reference interval Performed By: #### 1 0231, 7600 #### [facility] of [address], [address] [place] [address] Tavern Keeper: Jose Juan Arriola MD Potassium [Moles/Vol] 4.7 mmol/L Normal 3.5-5.3 [facility] Comment on above: Performed By: #### 1 0231, 7600 #### [facility] of [address], [address] [place] [address] Tavern Keeper: Jose Juan Arriola MD Protein [Mass/Vol] 6.6 g/dL Normal 6.1-8.1 [facility] Comment on above: Performed By: #### 1 0231, 7600 #### [facility] of [address], [address] [place] [address] Tavern Keeper: Jose Juan Arriola MD Sodium [Moles/Vol] 142 mmol/L Normal 135-146 [facility] Comment on above: Performed By: #### 1 0231, 7600 #### [facility] of [address], [address] [place] [address] Tavern Keeper: Jose Juan Arriola MD Urea nitrogen [Mass/Vol] 31 mg/dL High 7-25 [facility] Comment on above: Performed By: #### 1 023, 7600 #### [facility] [place] [address] Tavern Keeper: Jose Juan Arriola MD Urea nitrogen/Creatinine [Mass ratio] 14 mg/mg Normal 6-22 [facility] Comment on above: Performed By: #### 1 0231, 7600 #### [facility] [place] [address] Tavern Keeper: Jose Juan Arriola MD LIPID PANEL, [facility] 0 Cholesterol [Mass/Vol] 101 mg/dL Normal <200 [facility] Comment on above: Order Comment: FASTI NG:YES FASTING: YES Performed By: #### 1 0231, 7600 #### [facility] [place] [address] Tavern Keeper: Jose Juan Arriola MD Cholesterol in HDL [Mass/Vol] 40 mg/dL Normal > OR = 40 [facility] Comment on above: Order Comment: FASTI NG:YES FASTING: YES Performed By: #### 1 023, 0 #### [facility] [address], [address] [place] [address] Tavern Keeper: Jose Juan Arriola MD Cholesterol in LDL [...] LDL-C. Phillip SS et al. MERYL. 2013;310(19): 2699-2700 (http://education.[employer]/faq/HNC134) Performed By: #### 1 023, 0 #### [facility] [address], [address] [place] [address] Tavern Keeper: Jose Juan Arriola MD Cholesterol.total/C holesterol in HDL [Mass ratio] 2.5 {ratio} Normal <5.0 [facility] Comment on above: Order Comment: FASTI NG:YES FASTING: YES Performed By: #### 1 023, 7600 #### [facility] [address], [address] [place] [address] Tavern Keeper: Jose Juan Arriola MD NON HDL CHOLESTEROL 61 mg/dL (calc) Normal <130 [facility] Comment on above: Order Comment: FASTI NG:YES FASTING: YES Result Comment: For patients with diabetes plus 1 major ASCVD risk factor, treating to a non-HDL-C goal of <100 mg/dL (LDL-C of <70 mg/dL) is considered a therapeutic option. Performed By: #### 1 023, 7600 #### [facility] [address], [address] [place] [address] Tavern Keeper: Jose Juan Arriola MD Triglyceride [Mass/Vol] 127 mg/dL Normal <150 [facility] Comment on above: Order Comment: FASTI NG:YES FASTING: YES Performed By: #### 1 0231, 7600 #### [facility] [place] [address] Tavern Keeper: Jose Juan Arriola MD Tobacco Screening.on 021 Fall risk assessment a) No falls within the last year -[facility] DO Work Phone: Tobacco use status CP b) No -[facility] DO Work Phone: B TYPE NATRIURETIC PEPTIDE ( BNP)on 11-03-2020 B TYPE NATRIURETIC PEPTIDE (BNP) Normal [facility] Comment on above: Result Comment: FROZ EN EDTA PLASMA IS REQUIRED TEST NOT PERFORMED No suitable specimen received. Please review the test requirements at [email or web address] Performed By: #### 9 05, 57824, 77584, 6399, 718, 899, 622, 32417, 20331 #### [facility] [place] [address] Tavern Keeper: Jose Juan Arriola MD CBC (INCLUDES DIFF/PLT)on Basophils (Bld) [#/Vol] 0.071 10*3/uL Normal 0-200 [facility] Comment on above: Performed By: #### 9 05, 11311, 39661, 6399, 718, 899, 622, 04103, 19886 #### [facility] [place] [address] Tavern Keeper: Jose Juan Arriola MD Basophils/100 WBC (Bld) 1.0 % Normal [facility] Comment on above: Performed By: #### 9 05, 51297, 09431, 6399, 718, 899, 622, 89601, 22580 #### [facility] [place] [address] Tavern Keeper: Jose Juan Arriola MD Eosinophils (Bld) [#/Vol] 0.099 10*3/uL Normal 15-500 [facility] Comment on above: Performed By: #### 9 05, 67273, 20553, 6399, 718, 899, 622, 31280, 48805 #### [facility] [place] [address] Tavern Keeper: Jose Juan Arriola MD Eosinophils/100 WBC (Bld) 1.4 % Normal [facility] Comment on above: Performed By: #### 9 05, 54909, 51060, 6399, 718, 899, 622, 05686, 57745 #### [facility] [place] [address] Tavern Keeper: Jose Juan Arriola MD Erythrocyte distribution width (RBC) [Ratio] 14.4 % Normal 11.0-15.0 [facility] Comment on above: Performed By: #### 9 05, 66821, 17282, 6399, 718, 899, 622, 02412, 88682 #### [facility] [place] [address] Tavern Keeper: Jose Juan Arriola MD Hematocrit (Bld) [Volume fraction] 42.7 % Normal 38.5-50.0 [facility] Comment on above: Performed By: #### 9 05, 95071, 13866, 6399, 718, 899, 622, 38961, 92491 #### [facility] [place] [address] Tavern Keeper: Jose Juan Arriola MD Hemoglobin (Bld) [Mass/Vol] 13.7 g/dL Normal 13.2-17.1 [facility] Comment on above: Performed By: #### 9 05, 50136, 25637, 6399, 718, 899, 622, 65111, 91261 #### [facility] [place] [address] Tavern Keeper: Jose Juan Arriola MD Lymphocytes (Bld) [#/Vol] 1.512 10*3/uL Normal 850-3900 [facility] Comment on above: Performed By: #### 9 05, 25555, 66966, 6399, 718, 899, 622, 26074, 83580 #### [facility] [place] [address] Tavern Keeper: Jose Juan Arriola MD Lymphocytes/100 WBC (Bld) 21.3 % Normal [facility] Comment on above: Performed By: #### 9 05, 16334, 76344, 6399, 718, 899, 622, 24584, 05160 #### [facility] [place] [address] Tavern Keeper: Jose Juan Arriola MD MCH (RBC) [Entitic mass] 28.5 pg Normal 27.0-33.0 [facility] Comment on above: Performed By: #### 9 05, 82734, 31947, 6399, 718, 899, 622, 11485, 77670 #### [facility] [place] [address] Tavern Keeper: Jose Juan Arriola MD MCHC (RBC) [Mass/Vol] 32.1 g/dL Normal 32.0-36.0 [facility] Comment on above: Performed By: #### 9 05, 33248, 10883, 6399, 718, 899, 622, 02757, 65181 #### [facility] [place] [address] Tavern Keeper: Jose Juan Arriola MD MCV (RBC) [Entitic vol] 89.0 fL Normal 80.0-100.0 [facility] Comment on above: Performed By: #### 9 05, 58986, 55565, 6399, 718, 899, 622, 44686, 08352 #### [facility] [place] [address] Tavern Keeper: Jose Juan Arriola MD Monocytes (Bld) [#/Vol] 0.738 10*3/uL Normal 200-950 [facility] Comment on above: Performed By: #### 9 05, 85352, 85030, 6399, 718, 899, 622, 31163, 99686 #### [facility] of [address], [address] [place] [address] Tavern Keeper: Jose Juan Arriola MD Monocytes/100 WBC (Bld) 10.4 % Normal [facility] Comment on above: Performed By: #### 9 05, 31961, 24885, 6399, 718, 899, 622, 08411, 40458 #### [facility] [place] [address] Tavern Keeper: Jose Juan Arriola MD Neutrophils (Bld) [#/Vol] 4.679 10*3/uL Normal 2466-9340 [facility] Comment on above: Performed By: #### 9 05, 48211, 89725, 6399, 718, 899, 622, 93198, 76931 #### [facility] [place] [address] Tavern Keeper: Jose Juan Arriola MD Neutrophils/100 WBC (Bld) 65.9 % Normal [facility] Comment on above: Performed By: #### 9 05, 91481, 25935, 6399, 718, 899, 622, 92429, 78121 #### [facility] [place] [address] Tavern Keeper: Jose Juan Arriola MD Platelet mean volume (Bld) [Entitic vol] 11.4 fL Normal 7.5-12.5 [facility] Comment on above: Performed By: #### 9 05, 57182, 17854, 6399, 718, 899, 622, 66000, 37182 #### [facility] of [address], [address] [place] [address] Tavern Keeper: Jose Juan Arriola MD Platelets (Bld) [#/Vol] 229 10*3/uL Normal 140-400 [facility] Comment on above: Performed By: #### 9 05, 38519, 78856, 6399, 718, 899, 622, 33801, 90839 #### [place] [address] Tavern Keeper: Jose Juan Arriola MD RBC (Bld) [#/Vol] 4.80 10*6/uL Normal 4.20-5.80 [facility] Comment on above: Performed By: #### 9 05, 93910, 12934, 6399, 718, 899, 622, 67900, 66555 #### [facility] [place] [address] Tavern Keeper: Jose Juan Arriola MD WBC (Bld) [#/Vol] 7.1 10*3/uL Normal 3.8-10.8 [facility] Comment on above: Performed By: #### 9 05, 46145, 35330, 6399, 718, 899, 622, 33473, 43041 #### [facility] [place] [address] Tavern Keeper: Jose Juan Arriola MD [facility] METABOL[facility] 11-03-2020 Albumin [Mass/Vol] 4.1 g/dL Normal 3.6-5.1 [facility] Comment on above: Performed By: #### 9 05, 51861, 66602, 6399, 718, 899, 622, 47068, 37136 #### [facility] [place] [address] Tavern Keeper: Jose Juan Arriola MD Albumin/Globulin [Mass ratio] 1.7 {ratio} Normal 1.0-2.5 [facility] Comment on above: Performed By: #### 9 05, 56802, 80880, 6399, 718, 899, 622, 93594, 65089 #### [facility] [place] [address] Tavern Keeper: Jose Juan Arriola MD ALP [Catalytic activity/Vol] 62 U/L Normal 35-144 [facility] Comment on above: Performed By: #### 9 05, 29791, 21521, 6399, 718, 899, 622, 73646, 08429 #### [facility] of [address] [place] [address] Tavern Keeper: Jose Juan Arriola MD ALT [Catalytic activity/Vol] 9 U/L Normal 9-46 [facility] Comment on above: Performed By: #### 9 05, 77773, 39118, 6399, 718, 899, 622, 19366, 21054 #### [facility] [place] [address] Tavern Keeper: Jose Juan Arriola MD AST [Catalytic activity/Vol] 13 U/L Normal 10-35 [facility] Comment on above: Performed By: #### 9 05, 87554, 55881, 6399, 718, 899, 622, 71742, 24354 #### [facility] [place] [address] Tavern Keeper: Jose Juan Arriola MD Bilirubin [Mass/Vol] 0.7 mg/dL Normal 0.2-1.2 [facility] Comment on above: Performed By: #### 9 05, 24145, 19453, 6399, 718, 899, 622, 57600, 88132 #### [facility] [place] [address] Tavern Keeper: Jose Juan Arriola MD Calcium [Mass/Vol] 9.5 mg/dL Normal 8.6-10.3 [facility] Comment on above: Performed By: #### 9 05, 99298, 97698, 6399, 718, 899, 622, 94857, 53983 #### [facility] [place] [address] Tavern Keeper: Jose Juan Arriola MD Chloride [Moles/Vol] 109 mmol/L Normal 98-110 [facility] Comment on above: Performed By: #### 9 05, 79931, 12515, 6399, 718, 899, 622, 04114, 66049 #### [facility] [place] [address] Tavern Keeper: Jose Juan Arriola MD CO2 [Moles/Vol] 25 mmol/L Normal 20-32 [facility] Comment on above: Performed By: #### 9 05, 98507, 41331, 6399, 718, 899, 622, 10966, 88067 #### [facility] [place] [address] Tavern Keeper: Jose Juan Arriola MD Creatinine [Mass/Vol] 1.99 mg/dL High 0.70-1.11 [facility] Comment on above: Result Comment: For patients >49 years of age, the reference limit for Creatinine is approximately 13% higher for people identified as -Guinean. Performed By: #### 9 05, 17746, 47665, 6399, 718, 899, 622, 98883, 66485 #### [facility] [place] [address] Tavern Keeper: Jose Juan Arriola MD eGFR NON-AFR. AUSTRALIAN 30 mL/min/1.73m2 Low > OR = 60 [facility] Comment on above: Performed By: #### 9 05, 63488, 29270, 6399, 718, 899, 622, 74616, 40566 #### [facility] [place] [address] Tavern Keeper: Jose Juan Arriola MD GFR/1.73 sq M.predicted among blacks MDRD (S/P/Bld) [Vol rate/Area] 34 mL/min/{1.73_m2} Low > OR = 60 [facility] Comment on above: Performed By: #### 9 05, 07190, 44993, 6399, 718, 899, 622, 06310, 60931 #### [facility] [place] [address] Tavern Keeper: Jose Juan Arriola MD Globulin (S) [Mass/Vol] 2.4 g/dL Normal 1.9-3.7 [facility] Comment on above: Performed By: #### 9 05, 49628, 03704, 6399, 718, 899, 622, 91871, 63395 #### [facility] [place] [address] Tavern Keeper: Jose Juan Arriola MD Glucose [Mass/Vol] 144 mg/dL High 65-99 [facility] Comment on above: Result Comment: Fasting reference interval For someone without known diabetes, a glucose value >125 mg/dL indicates that they may have diabetes and this should be confirmed with a follow-up test. Performed By: #### 9 05, 38291, 21046, 6399, 718, 899, 622, 44286, 34959 #### [facility] [place] [address] Tavern Keeper: Jose Juan Arriola MD Potassium [Moles/Vol] 4.9 mmol/L Normal 3.5-5.3 [facility] Comment on above: Performed By: #### 9 05, 04549, 85809, 6399, 718, 899, 622, 22449, 88502 #### [facility] [place] [address] Tavern Keeper: Jose Juan Arriola MD Protein [Mass/Vol] 6.5 g/dL Normal 6.1-8.1 [facility] Comment on above: Performed By: #### 9 05, 71479, 17139, 6399, 718, 899, 622, 78258, 92324 #### [facility] [place] [address] Tavern Keeper: Jose Juan Arriola MD Sodium [Moles/Vol] 141 mmol/L Normal 135-146 [facility] Comment on above: Performed By: #### 9 05, 60618, 67806, 6399, 718, 899, 622, 69056, 00809 #### [facility] [place] [address] Tavern Keeper: Jose Juan Arriola MD Urea nitrogen [Mass/Vol] 31 mg/dL High 7-25 [facility] Comment on above: Performed By: #### 9 05, 48802, 58913, 6399, 718, 899, 622, 68666, 96621 #### [facility] [place] [address], [address] [place] [address] Tavern Keeper: Jose Juan Arriola MD Urea nitrogen/Creatinine [Mass ratio] 16 mg/mg Normal 6-22 [facility] Comment on above: Performed By: #### 9 05, 00442, 40118, 6399, 718, 899, 622, 37817, 37144 #### [facility] [place] [address] Tavern Keeper: Jose Juan Arriola MD MAGNESIUMon 11-03-2020 Magnesium [Mass/Vol] 2.1 mg/dL Normal 1.5-2.5 [facility] Comment on above: Performed By: #### 9 05, 05779, 28690, 6399, 718, 899, 622, 17741, 05679 #### [facility] [place] [address] Tavern Keeper: Jose Juan Arriola MD PHOSPHATE ( PHOSPHORUS)on 11-03-2020 Phosphate [Mass/Vol] 2.9 mg/dL Normal 2.1-4.3 [facility] Comment on above: Performed By: #### 9 05, 38377, 24654, 6399, 718, 899, 622, 99691, 91491 #### [facility] [place] [address] Tavern Keeper: Jose Juan Arriola MD PTH, INTACT WITHOUT [...] Normal High Performed By: #### 9 05, 87013, 17620, 6399, 718, 899, 622, 86989, 81395 #### [facility] of [address], [address] [place] [address] Tavern Keeper: Jose Juan Arriola MD TSHon 11-03-2020 TSH Qn 2.08 m[IU]/L Normal 0.40-4.50 [facility] Comment on above: Performed By: #### 9 05, 88268, 51722, 6399, 718, 899, 622, 56304, 27260 #### [facility] [address], [address] [place] [address] Tavern Keeper: Jose Juan Arriola MD URIC ACIDon 11-03-2020 Urate [Mass/Vol] 8.5 mg/dL High 4.0-8.0 [facility] Comment on above: Result Comment: Ther apeutic target for gout patients: <6.0 mg/dL Performed By: #### 9 05, 46159, 99284, 6399, 718, 899, 622, 89783, 95025 #### [facility] [address], [address] [place] [address] Tavern Keeper: Jose Juan Arriola MD VITAMIN D,25-OH,TOTAL,IAon 0 [...] D, (D2,D3), LC/MS/MS is recommended: order code 18228 (patients >2yrs). See Note 1 Note 1 For additional information, please refer to http://education.[employer]/faq/COT116 (This link is being provided for informational/ educational purposes only.) Performed By: #### 1 0231, 7600 #### [facility] [address], [address] [place] [address] Tavern Keeper: Jose Juan Arriola MD [facility] CARDIAC STRESS/REST INJE CTIONon 08-07-2019 [facility] CARDIAC STRESS/REST INJECTION Patient Name: DONOVAN JACOME STUDY: MYOCARDIAL PERFUSION STRESS TEST WITH LEXISCAN Performing facility: [facility], [address] [place] [address], [address], [place] [address] [facility] Provider: Melanie Langston MD, FACC PCP: Dr. Alden Morin Supervising provider: Doron Jacobsen MD, FACC INDICATION: Arteriosclerotic cardiovascular disease Pre-operative risk assessment for Gallbladder scheduled at [facility] on TBA. HISTORY: Gender: M; Age: 83 y/o ; Height: 175.26 cm; Weight: 74.2033846 kg. High Cholesterol; CAD; HTN; ICD V. Tach., ICD Denies smoking. COMPARISON: Previous nuclear testing completed at [facility]. ACCESSION NUMBER(S): [id number]; [id number]; [id number] ORDERING CLINICIAN: AIDAN LANGSTON TECHNIQUE: ONE DAY [...] changes. Electronically signed by: DORON JACOBSEN MD [facility] Reminderson 03-14-2019 Reminders - From: Nelly DOWNING, Qing Morales To: EU - Clinical; Sent: 03/04/2019 11:29:06 EDT Show up: 03/14/2019 11:29:00 EDT Subject: Ambulatory Reminder Due Date/Time: 03/18/2019 11:29:00 EDT Reminder/Recall FISH/Cytology done 03/04/19 Negative. Normal [facility] Vital Signs Date Time Vital Sign Value Performing Clinician Facility 03-06-2024 10:36-0400 Body height 177.8 cm Thomas[facility]Krenn [facility] 03-06-2024 10:36-0400 Body mass index (BMI) [Ratio] 21.38 kg/m2 Thomas[facility]Krenn Work Phone[facility] 03-06-2024 10:36-0400 Body temperature 97.5 [degF] Thomas[facility]Krenn Work Phone[facility] 03-06-2024 10:36-0400 Body weight 67.59 kg Thomas-Krenn Work Phone[facility] 03-06-2024 10:36-0400 Diastolic blood pressure 60 mm[Hg] Thomas-Krenn Work Phone[facility] 03-06-2024 10:36-0400 Heart rate 70 /min Phil Furlong DO Work Phone: [employer] 03-06-2024 10:36-0400 Respiratory rate 18 /min [facility] DO [facility] 03-06-2024 10:36-0400 SaO2% (BldA) [Mass fraction] 97 % Phil Furlong DO Work Phone: [facility] [employer] [facility] 03-06-2024 10:36-0400 Systolic blood pressure 110 mm[Hg] Phil Furlong DO Work Phone: [facility] 03-04-2024 14:51-0400 SaO2% (BldA) [Mass fraction] 98 % Garland Rose MD Work Phone: [facility] 03-04-2024 12:23-0400 Body height 180.3 cm Garland Rose MD Work Phone: [facility] 03-04-2024 12:23-0400 Body mass index (BMI) [Ratio] 21.43 kg/m2 Garland Rose MD Work Phone: [facility] 03-04-2024 12:23-0400 Body temperature 97.3 [degF] Garland Rose MD Work Phone: [facility] 03-04-2024 12:23-0400 Body weight 69.7 kg Garland Rose MD Work Phone: [facility] 03-04-2024 12:23-0400 Diastolic blood pressure 78 mm[Hg] Garland Rose MD Work Phone: [facility] 03-04-2024 12:23-0400 Heart rate 75 /min Garland Rose MD Work Phone: [facility] 03-04-2024 12:23-0400 Respiratory rate 16 /min Garland Rose MD Work Phone: [facility] 03-04-2024 12:23-0400 Systolic blood pressure 159 mm[Hg] Garland Rose MD Work Phone: [facility] 02-26-2024 09:26-0400 Body height 180.3 cm Garland Rose MD Work Phone: [facility] 02-26-2024 09:26-0400 Body mass index (BMI) [Ratio] 21.34 kg/m2 Garland Rose MD Work Phone: [facility] 02-26-2024 09:26-0400 Body temperature 96.91 [degF] Garland Rose MD Work Phone: [facility] 02-26-2024 09:26-0400 Body weight 69.4 kg Garland Rose MD Work Phone: [facility] 02-26-2024 09:26-0400 Diastolic blood pressure 79 mm[Hg] Garland Rose MD Work Phone: [facility] 02-26-2024 09:26-0400 Heart rate 88 /min Garland Rose MD Work Phone: [facility] 02-26-2024 09:26-0400 Respiratory rate 16 /min Garland Rose MD Work Phone: [facility] 02-26-2024 09:26-0400 SaO2% (BldA) [Mass fraction] 98 % Garland Rose MD Work Phone: [facility] 02-26-2024 09:26-0400 Systolic blood pressure 115 mm[Hg] Garland Rose MD Work Phone: [facility] 11-05-2023 08:57-0400 Body height 180.3 cm Aidan Langston MD Work Phone: [facility] 11-05-2023 08:57-0400 Body mass index (BMI) [Ratio] 21.9 kg/m2 Aidan Langston MD Work Phone: [facility] 11-05-2023 08:57-0400 Body weight 71.22 kg Aidan Langston MD Work Phone: [facility] 11-05-2023 08:57-0400 Diastolic blood pressure 90 mm[Hg] Aidan Langston MD Work Phone: [facility] 11-05-2023 08:57-0400 Heart rate 82 /min Aidan Langston MD Work Phone: [facility] 11-05-2023 08:57-0400 Systolic blood pressure 130 mm[Hg] Aidan Langston MD Work Phone: [facility] 08-06-2023 10:10-0400 Body height 177.8 cm Phil Furlong DO Work Phone: [facility] 08-06-2023 10:10-0400 Body mass index (BMI) [Ratio] 23.69 kg/m2 Phil Furlong DO Work Phone: [employer] 08-06-2023 10:10-0400 Body temperature 97.81 [degF] Phil Furlong DO Work Phone: [employer] 08-06-2023 10:10-0400 Body weight 74.89 kg Phil Furlong DO Work Phone: [employer] 08-06-2023 10:10-0400 Diastolic blood pressure 60 mm[Hg] Phil Furlong DO Work Phone: [employer] 08-06-2023 10:10-0400 Heart rate 93 /min Phil Furlong DO Work Phone: [employer] 08-06-2023 10:10-0400 Respiratory rate 18 /min Phil Furlong DO Work Phone: [employer] 08-06-2023 10:10-0400 SaO2% (BldA) [Mass fraction] 97 % Phil Furlong DO Work Phone: [facility] [employer] [facility] 08-06-2023 10:10-0400 Systolic blood pressure 106 mm[Hg] Phil Furlong DO Work Phone: [facility] 05-29-2023 16:13-0500 Body height 177.8 cm Phil Furlong DO Work Phone: [facility] 05-29-2023 16:13-0500 Body mass index (BMI) [Ratio] 24.12 kg/m2 Phil Furlong DO Work Phone: [facility] 05-29-2023 16:13-0500 Body temperature 97.81 [degF] Phil Furlong DO Work Phone: [facility] 05-29-2023 16:13-0500 Body weight 76.25 kg Phil Reynagalong DO Work Phone: [facility] 05-29-2023 16:13-0500 Diastolic blood pressure 68 mm[Hg] Phil Furlong DO Work Phone: [facility] 05-29-2023 16:13-0500 Heart rate 104 /min Phil Furlong DO Work Phone: [facility] 05-29-2023 16:13-0500 SaO2% (BldA) [Mass fraction] 99 % Phil Furlong DO Work Phone: [facility] 05-29-2023 16:13-0500 Systolic blood pressure 128 mm[Hg] Phil Furlong DO Work Phone: [facility] 01-12-2023 14:17-0400 Body height 175.26 cm Phil Soliz Furlong Work Phone: [facility] [facility] DO Work Phone: 01-12-2023 14:17-0400 Body mass index (BMI) [Ratio] 23.78 kg/m2 Phil G Furlong Work Phone: [facility] [employer] 250 DO Work Phone: 01-12-2023 14:17-0400 Body surface area Derived from formula 1.88 m2 Phil G Furlong Work Phone: [facility] [employer] 250 DO Work Phone: 01-12-2023 14:17-0400 Body weight 73.03 kg Phil G Furlong Work Phone: [facility] [employer] 250 DO Work Phone: 01-12-2023 14:17-0400 Diastolic blood pressure 78 mm[Hg] Phil G Furlong Work Phone: [facility] [employer] [facility] DO Work Phone: 01-12-2023 14:17-0400 Heart rate 72 /min Phil G Furlong Work Phone: [facility] [employer] [address] DO Work Phone: 01-12-2023 14:17-0400 Systolic blood pressure 122 mm[Hg] Phil G Furlong Work Phone: [facility] [employer] [facility] DO Work Phone: 07-14-2022 15:41-0500 Body height 175.26 cm Phil G Furlong Work Phone: [facility] [facility] DO Work Phone: 07-14-2022 15:41-0500 Body mass index (BMI) [Ratio] 23.92 kg/m2 Phil G Furlong Work Phone: [facility] [employer] [address] DO Work Phone: 07-14-2022 15:41-0500 Body surface area Derived from formula 1.89 m2 Phil G Furlong Work Phone: [facility] [facility] DO Work Phone: 07-14-2022 15:41-0500 Body weight 73.48 kg Phil Reynagalong Work Phone: [facility] [facility] DO Work Phone: 07-14-2022 15:41-0500 Diastolic blood pressure 80 mm[Hg] Phil Reynagalong Work Phone: [facility] [facility] DO Work Phone: 07-14-2022 15:41-0500 Heart rate 80 /min Phil Reynagalong Work Phone: [facility] [facility] DO Work Phone: 07-14-2022 15:41-0500 Systolic blood pressure 130 mm[Hg] Phil Reynagalong Work Phone: [facility] [employer] [address] DO Work Phone: 06-15-2022 12:40-0500 Diastolic blood pressure 78 mm[Hg] Florentino Kumari Dept. of Dermatology 06-15-2022 12:40-0500 Systolic blood pressure 167 mm[Hg] Florentino Kumari Dept. of Dermatology 06-06-2022 08:07-0500 Diastolic blood pressure 85 mm[Hg] Florentino Kumari Dept. of Dermatology 06-06-2022 08:07-0500 Systolic blood pressure 150 mm[Hg] Florentino Kumari Dept. of Dermatology 04-03-2022 14:27-0500 Body height 175.26 cm Phil Reyangalong Work Phone: YK-Fgaybjmxobsjmq-Vt [place] Work Phone: 04-03-2022 14:27-0500 Body mass index (BMI) [Ratio] 23.92 kg/m2 Phil Reynagalong Work Phone: [facility]Z-Qgkmiqupresrqz-Yr [place] Work Phone: 04-03-2022 14:27-0500 Body surface area Derived from formula 1.89 m2 Phil G Vir-Seclong Work Phone: XJ-Pknwtyyokevonx-Wi [place] Work Phone: 04-03-2022 14:27-0500 Body weight 73.48 kg Phil Reynagalong Work Phone: ZV-Wavditvpbgeopx-Uj [place] Work Phone: 03-23-2022 09:29-0400 Diastolic blood pressure 89 mm[Hg] Karlie Craig Dept. of Dermatology 03-23-2022 09:29-0400 Systolic blood pressure 160 mm[Hg] Karlie Craig Dept. of Dermatology 03-23-2022 08:29-0400 Diastolic blood pressure 89 mm[Hg] Florentino Kumari Dept. of Dermatology 03-23-2022 08:29-0400 Systolic blood pressure 160 mm[Hg] Florentino Kumari Dept. of Dermatology 12-13-2021 08:48-0400 Body height 175.26 cm Phil [employer]Digital [employer]ng Work Phone: [facility] [place] 250 DO Work Phone: 12-13-2021 08:48-0400 Body mass index (BMI) [Ratio] 23.63 kg/m2 Phil [employer] Work Phone: [facility] [place] 250 DO Work Phone: 12-13-2021 08:48-0400 Body surface area Derived from formula 1.88 m2 Phil Soliz [employer] Work Phone: [facility] [employer] 250 DO Work Phone: 12-13-2021 08:48-0400 Body weight 72.58 kg Phil Soliz Furlong Work Phone: [facility] [employer] [facility] DO Work Phone: 12-13-2021 08:48-0400 Diastolic blood pressure 80 mm[Hg] Phil G Furlong Work Phone: [facility] [employer] [facility] DO Work Phone: 12-13-2021 08:48-0400 Heart rate 80 /min Phil G Furlong Work Phone: [facility] [employer] [facility] DO Work Phone: 12-13-2021 08:48-0400 Systolic blood pressure 128 mm[Hg] Phil G Furlong Work Phone: [facility] [employer] [facility] DO Work Phone: 05-02-2021 08:27-0500 Body height 175.26 cm Phil G Furlong Work Phone: [facility] [employer] [facility] DO Work Phone: 05-02-2021 08:27-0500 Body mass index (BMI) [Ratio] 24.37 kg/m2 Phil G Furlong Work Phone: [facility] [employer] [facility] DO Work Phone: 05-02-2021 08:27-0500 Body surface area Derived from formula 1.9 m2 Phil G Furlong Work Phone: [facility] [employer] [facility] DO Work Phone: 05-02-2021 08:27-0500 Body weight 74.84 kg Phil G Furlong Work Phone: [facility] [employer] [facility] DO Work Phone: 05-02-2021 08:27-0500 Diastolic blood pressure 76 mm[Hg] Phil Reynagalong Work Phone: [facility] [facility] DO Work Phone: 05-02-2021 08:27-0500 Heart rate 81 /min Phil Reynagalong Work Phone: [facility] [facility] DO Work Phone: 05-02-2021 08:27-0500 Systolic blood pressure 137 mm[Hg] Phil Reynagalong Work Phone: [facility] [facility] DO Work Phone: 1934 23:00-0500 >na< Karlie Craig Dept. of Dermato logy Encounters Encounter Date Encounter Type Care Provider Facility Start: 07-29-2024 End: 07-29-2024 Patient encounter procedure Swati Mejia AUD Work Phone: [facility] Comment on above: Sensorineural hearin g loss, bilateral (Primary Dx) Start: 07-21-2024 End: 07-21-2024 Telephone encounter Swati Mejia AUD Work Phone: [facility] Start: 07-18-2024 End: 07-18-2024 Bamboo flowsheet Swtai Mejia AUD Work Phone: [facility] Start: 07-18-2024 End: 07-18-2024 Bamboo flowsheet Swati Mejia AUD Work Phone: [facility] Start: 07-18-2024 End: 07-18-2024 Patient encounter procedure Swati Mejia AUD Work Phone: [facility] Comment on above: Sensorineural hearin g loss, bilateral (Primary Dx) Start: 07-18-2024 End: 07-18-2024 ambulatory SWATI Shalonda MEJIA Not Available Start: 06-24-2024 End: 06-24-2024 Bamboo flowsheet Swati [...] Orders Only Phil Morin DO [facility] Comment on above: Longstanding persist ent atrial fibrillation ([facility]) (Primary Dx) Start: 05-28-2024 End: 06-03-2024 Telephone encounter Kaylan Dunbar CMA [facility] Start: 03-11-2024 End: 03-11-2024 ambulatory [facility] Ambulatory Start: 03-10-2024 End: 03-10-2024 Orders Only Phil Morin DO Work Phone: [facility] Comment on above: Vitamin D deficiency (Primary Dx) Start: 03-06-2024 End: 03-06-2024 ambulatory [facility] Start: 03-06-2024 End: 03-06-2024 Office outpatient visit 25 minutes Phil Morin DO Work Phone: [facility] Comment on above: Hypertension 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 ([facility]) (Primary Dx); 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); Cardiomyopathy (CMS-HCC); Stage 4 chronic kidney disease ([facility]); Type 2 diabetes mellitus without complication, without long-term current use of insulin ([facility]) Start: 03-06-2024 End: 03-06-2024 [facility] Start: 03-04-2024 End: 03-04-2024 Subsequent hospital visit by physician Garland Rose MD Work Phone: [facility] Comment on above: 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 (Primary Dx); Ventricular tachycardia (Multi) Start: 02-26-2024 End: 02-26-2024 ambulatory SPRANKLE MILLS ADWOA [facility] Start: 02-26-2024 End: 02-26-2024 Office outpatient new 45 minutes Garland Rose MD Work Phone: [facility] Comment on above: 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; Ventricular tachycardia (Multi); Ischemic cardiomyopathy Start: 02-26-2024 End: 02-26-2024 ambulatory [facility] Start: 02-05-2024 End: 02-05-2024 Patient encounter procedure DO Philct Nicoleng Work Phone: [facility] Start: 02-05-2024 End: 02-05-2024 ambulatory DO Phil Furlong Work Phone: [facility] Work Phone: Start: 12-27-2023 End: 12-27-2023 Patient encounter procedure DO Phil Ronnelllong Work Phone: [facility] Start: 12-27-2023 End: 12-27-2023 ambulatory DO Phil Furlong Work Phone: [facility] Work Phone: Start: 12-15-2023 End: 12-18-2023 Refill Phil Morin DO Work Phone: [facility] Start: 11-05-2023 End: 11-05-2023 Office outpatient visit 25 minutes Aidan Langston MD Work Phone: [facility] Comment on above: Arteriosclerotic car diovascular disease (ASCVD) (Primary Dx); Essential hypertension; Mixed hyperlipidemia; Ventricular tachycardia (Multi); ICD (implantable cardioverter-defibrillator) in place; Dilated cardiomyopathy (Multi); Ischemic cardiomyopathy Start: 11-05-2023 End: 11-05-2023 ambulatory AIDAN LANGSTON [facility] Ambulatory Start: 09-27-2023 End: 09-27-2023 Patient encounter procedure DO Phil Morin Work Phone: [facility] Start: 09-27-2023 End: 09-27-2023 ambulatory DO Phil Morin Work Phone: [facility] Work Phone: Start: 08-23-2023 Orders Only Phil pool DO Work Phone: [facility] Start: 08-09-2023 Orders Only Phil pool DO Work Phone: [facility] Comment on above: Type 2 diabetes gamaliel itus without complication, without long- term current use of insulin ([facility]) (Primary Dx); Hypertensive 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 ([facility]) Start: 08-06-2023 End: 08-06-2023 ambulatory PHIL MORIN [facility] Start: 08-06-2023 End: 08-06-2023 Office outpatient [...] Paroxysmal atrial fibrillation (CMS-HCC); Microalbuminuric diabetic nephropathy ([facility]) Start: 08-06-2023 End: 08-06-2023 ambulatory [facility] Start: 07-18-2023 Orders Only Phil pool DO Work Phone: [facility] Comment on above: Longstanding persist ent atrial fibrillation ([facility]) (Primary Dx) Start: 06-28-2023 End: 06-28-2023 Patient encounter procedure DO Phil Morin Work Phone: [facility] Start: 06-28-2023 End: 06-28-2023 ambulatory DO Phil Nicoleng Work Phone: [facility] Work Phone: Start: 05-29-2023 End: 05-29-2023 Office outpatient visit 25 minutes Phil Morin DO Work Phone: [facility] Comment on above: Paroxysmal atrial fi brillation ([facility]) (Primary Dx); Hypertensive 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 ([facility]); Essential hypertension; Hypothyroidism, unspecified type; Type 2 diabetes mellitus without complication, without long-term current use of insulin ([facility]); Arteriosclerotic vascular disease Start: 05-29-2023 End: 05-29-2023 ambulatory [facility] Start: 03-20-2023 End: 03-20-2023 ambulatory DO Phil Morin Work Phone: [facility] Work Phone: Start: 03-20-2023 End: 03-20-2023 Patient encounter procedure DO Phil Nicoleng Work Phone: [facility] Start: 01-12-2023 Office outpatient vi sit 25 minutes Phil Nicoleng Work Phone: [facility] [facility] DO Work Phone: Start: 01-12-2023 Patient encounter procedure De mindi Nicoleng Work Phone: [facility] [facility] DO Work Phone: Start: 10-17-2022 End: 10-18-[address] JARON DAVALOS Facility:[facility]1 Start: 09-15-2022 End: 09-16-[address] JARON DAVALOS Facility:[facility]1 Start: 08-28-2022 End: 08-28-2022 ambulatory DO Phil Reynagalong Work Phone: [facility] Work Phone: Start: 08-28-2022 End: 08-28-2022 Patient encounter procedure DO Phil Nicoleng Work Phone: [facility] Start: 08-15-2022 End: 08-16-[address] JARON DAVALOS Facility:[facility]1 Start: 07-18-2022 End: 07-19-[address] JARON DAVALOS Facility:[facility]1 Start: 07-14-2022 Office outpatient vi sit 25 minutes Phil Morin Work Phone: [facility] [facility] DO Work Phone: Start: 07-04-2022 End: 07-05-[address] JARON DAVALOS Facility:[facility]1 Start: 07-03-2022 Karlie Craig Dept. of D ermatology Start: 06-16-2022 Jaimie Estevez Dept. of Dermatology Start: 06-16-2022 Telephone encounter Phil dorseylong Work Phone: [facility] 250 DO Work Phone: Start: 06-15-2022 Florentino Kumari Dept. of Dermatology Start: 06-09-2022 Rx Renewal Phil Nicole ng Work Phone: [facility] [facility] DO Work Phone: Start: 06-07-2022 End: 06-08-[address] PHIL MORIN Facility:[facility]1 Start: 06-07-2022 Florentino Kumari Dept. of Dermatology Start: 05-17-2022 End: 05-17-2022 ambulatory DO Phil Nicoleng Work Phone: [facility] Work Phone: Start: 05-17-2022 End: 05-17-2022 Patient encounter procedure DO Philct Morin Work Phone: [facility] Start: 05-08-2022 End: 05-09-[address] PHIL MORIN Facility:[facility]1 Start: 05-01-2022 Rx Renewal Phil Nicole ng Work Phone: [facility] [facility] DO Work Phone: Start: 04-07-2022 End: 04-08-[address] PHIL MORIN Facility:[facility]1 Start: 04-04-2022 Karlie Craig Dept. of D ermatology Start: 04-03-2022 Office outpatient ne w 45 minutes Phil Soliz Ronnelldestinyyrn Work Phone: [facility] Work Phone: Start: 04-03-2022 Patient encounter procedure De joseponce Morin Work Phone: [facility]-Dylbmukhqroclj-Swt [facility]lake Work Phone: Start: 03-23-2022 Florentino Kumari Dept. of Dermatology Start: 03-06-2022 End: 03-07-[address] PHIL MORIN Facility:[facility]1 Start: 02-28-2022 Karlie Craig Dept. of D ermatology Start: 02-15-2022 End: 02-15-2022 ambulatory DO Phil Nicoleng Work Phone: [facility] Work Phone: Start: 02-15-2022 End: 02-15-2022 Patient encounter procedure DO Phil Nicoleng Work Phone: [facility] Start: 02-03-2022 End: 02-04-[address] PHIL MORIN Facility:H1 Start: 01-02-2022 End: 01-03-[address] PHIL MORIN Facility:[facility]1 Start: 12-13-2021 Office outpatient vi sit 25 minutes Phil Soliz Ronnelldestinyyrn Work Phone: [facility] [facility] DO Work Phone: Start: 12-02-2021 End: 12-16-[address] PHIL MORIN Facility:[facility]1 Start: 11-18-2021 End: 11-19-[address] PHIL MORIN Facility:[facility]1 Start: 05-02-2021 Office outpatient vi sit 25 minutes Phil Nicoleng Work Phone: [facility] [facility] DO Work Phone: Procedures Date Procedure Procedure Detail Performing Clinician Start: 06-24-2024 AUDITORY FUNCTION TESTS Swati Mejia TALI Work Phone: Start: 03-04-2024 Ecg routine ecg w/le ast 12 lds trcg only w/o i&r Aleena Dinero SOFTWARE LICENSING ANALYST-INFORMATION TECHNOLOGY DIRECTOR Work Phone: Start: 03-04-2024 Basic metabolic pane l calcium total Aleena Dinero SOFTWARE LICENSING ANALYST-INFORMATION TECHNOLOGY DIRECTOR Work Phone: Start: 02-26-2024 Ecg routine ecg w/le ast 12 lds trcg only w/o i&r Garland Rose MD Work Phone: Start: 08-06-2023 Adult depression scr eening assessment Phil Nicoleng DO Work Phone: Start: 05-29-2023 Adult depression scr eening assessment Phil Morin DO Work Phone: Start: 06-15-2022 Excision malignant l esion s/n/h/f/g 2.1-3.0 cm Florentino Kumari Start: 06-06-2022 Excision malignant: Scalp/Neck/Hands/Feet/Genit adam - 4.0cm [id number] Florentino Kumari Start: 06-06-2022 Excision malignant: Scalp/Neck/Hands/Feet/Genit adam - 4.0cm [id number] Florentino Kumari Start: 03-23-2022 End: 03-23-2022 Exc b9 lesion mrgn xcp sk tg t/a/l 3.1-4.0 cm Florentino Kumari Start: 02-28-2022 Karliefederico amaya Brain Surgery Phil pool Work Phone: Cataract surgery Phil Card rlong Work Phone: History Of Prior Surgery Brayan Morin Work Phone: Total colonoscopy Phil Block urlong Work Phone: Transurethral resect ion of bladder neoplasm Phil Morin Work Phone: Plan of Treatment Date Care Activity Detail Author Start: 08-11-2027 DTaP,Tdap and Td Vaccines (2 - Td or Tdap) DTaP,Tdap and Td Vaccines (2 - Td or Tdap) [facility] Start: 08-11-2027 DTaP/Tdap/Td Vaccines (2 - Td or Tdap) DTaP/Tdap/Td Vaccines (2 - Td or Tdap) [facility] Start: 03-06-2025 Adult BMI Screening Adult BMI Screening [facility] [employer] [facility] Start: 03-06-2025 Tobacco Screening Tobacco Screening [facility] Start: 03-04-2025 Creatinine measurement Creatinine Level [facility] Start: 03-04-2025 Potassium measurement Potassium Level [facility] Start: 09-04-2024 End: 09-04-2024 Patient encounter procedure 09/04/2024 10:00 AM EDT Office Visit [facility] [address] [place] [address] Phil Morin, [address], [facility] [place] [address] [facility] Start: 09-02-2024 End: 03-04-2025 Cardiac Device Check - In Clinic Cardiac Device Check - In Clinic Implantable Cardiac Device Routine 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 Expected: 09/02/2024 (Approximate), Expires: 03/04/2025 [facility] Service Area Work Phone: Comment on above: Expected: 09/02/2024 (Approximate), Expi res: 03/04/2025 Start: 09-02-2024 End: 09-02-2024 Patient encounter procedure [facility] Start: 08-05-2024 Administration of varicella zoster vaccine Zoster (Shingles) Vaccine (1 of 2) [facility] Comment on above: Postponed from 09/25/2015 (Patient Refus ed) Start: 08-05-2024 Adult BMI Screening Adult BMI Screening [facility] Start: 08-05-2024 Depression Screening Depression Screening [facility] Start: 08-05-2024 Tobacco Screening Tobacco Screening [facility] Start: 08-04-2024 End: 08-04-2024 Patient encounter procedure 08/04/2024 9:30 AM EDT Office Visit [facility] [address] [facility] [address] [place] [address] Adri Mckenzie MD [address] [facility] [address] [place] [address] [facility] Start: 08-01-2024 End: 08-01-2024 Patient encounter procedure 08/01/2024 12:30 PM EDT Office Visit [facility] [address] [place] [address] Swati Mejia, AUD [address] [place] [address] [facility] Start: 07-18-2024 End: 07-18-2024 Patient encounter procedure [facility] Comment on above: Arrived Start: 06-24-2024 End: 06-24-2024 Patient encounter procedure 06/24/2024 1:00 PM EST Office Visit [facility] [address] [place] [id number] Swati Mejia, AUD [address] [place] [address] Arrived [facility] Comment on above: Arrived Start: 05-29-2024 Adult BMI Screening Adult BMI Screening [facility] Start: 05-29-2024 Depression Screening Depression Screening [facility] Start: 05-29-2024 Fall Risk Screening Fall Risk Screening [facility] Start: 05-29-2024 Tobacco Screening Tobacco Screening [facility] Start: 03-11-2024 End: 03-11-2024 Clinical Support 03/11/2024 9:30 AM EDT Clinical Support [facility] [address] [phone] [facility] Start: 03-04-2024 End: 03-04-2024 Admission to same day surgery center 03/04/2024 3:30 PM EDT - 03/04/2024 4:30 PM EDT Surgery [facility] [address] [place] [id number] Garland Rose MD [address] [place] [address] ICD DC Generator Change [27242 (CPT )] [facility] Comment on above: ICD DC Generator Change [08582 (CPT )] Start: 03-04-2024 Subsequent hospital visit by physician 03/04/2024 3:30 PM EDT Hospital Encounter [address] [phone] Garland Rose MD [address] [place] [address] 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; Ventricular tachycardia (Multi) [facility] Comment on above: ICD (implantable cardioverter-defibrilla tor) in place; Ventricular tachycardia (Multi) Start: 02-06-2024 End: 02-06-2024 Patient encounter procedure 02/06/2024 9:00 AM EDT Office Visit [facility] [address] [place] [phone] Phil Morin DO [address], [place] [address] [facility] Start: 01-20-2024 COVID-19 Vaccine ( season) COVID-19 Vaccine ( season) [facility] Start: 01-20-2024 Influenza vaccination [facility] Start: 10-16-2023 FUV, Provider: Aidan Langston, Status: Pen, Time: 9:00 AM FUV, Provider: Aidan Langston, Status: Pen, Time: 9:00 AM [facility] 250 DO Work Phone: Start: 08-06-2023 End: 08-06-2023 Patient encounter procedure 08/06/2023 10:10 AM EDT Office Visit [facility] [address] [place] [phone] Phil Morin DO [address], [place] [address] [facility] Start: 07-30-2023 End: 07-30-2023 Patient encounter procedure 07/30/2023 10:20 AM EDT Office Visit [facility] [address] [place] [address] Phil Morin, DO [address] [place] [address] [facility] Start: 01-19-2023 COVID-19 Vaccine ( season) COVID-19 Vaccine ( season) [facility] Start: 01-12-2023 FUV, Provider: Aidan Langston, Status: Pen, Time: 2:10 PM FUV, Provider: Aidan Langston, Status: Pen, Time: 2:10 PM -[facility] DO Work Phone: Start: 07-14-2022 FUV, Provider: Aidan Langston, Status: Pen, Time: 3:10 PM FUV, Provider: Aidan Langston, Status: Pen, Time: 3:10 PM [facility] Start: 06-27-2022 FUV, Provider: Doron Jacobsen, Status: Pen, Time: 9:10 AM FUV, Provider: Doron Jacobsen, Status: Pen, Time: 9:10 AM -[facility] 250 DO Work Phone: Start: 12-13-2021 FUV, Provider: Aidan Langston, Status: Pen, Time: 8:50 AM FUV, Provider: Aidan Langston, Status: Pen, Time: 8:50 AM -[facility] 250 DO Work Phone: Start: 06-03-2016 Creatinine measurement Creatinine Level [facility] Start: 06-03-2016 Potassium measurement Potassium Level [facility] Start: 09-25-2015 Administration of varicella zoster vaccine Zoster (Shingles) Vaccine (1 of 2) [facility] [employer] [facility] Start: 09-25-2015 Zoster Vaccines (2 of 3) Zoster Vaccines (2 of 3) [facility] Start: 1994 RSV patients and/or patients aged 60+ years (1 - 1-dose 60+ series) RSV patients and/or patients aged 60+ years (1 - 1-dose 60+ series) [facility] Start: 1952 Diabetes mellitus screening Diabetes Screening [facility] Start: 02-13-1935 Examination of skin Derm Melanoma Skin Check [facility] Start: 1934 Echocardiography Echocardiogram [facility] Start: 1934 Lipid panel Lipid Panel [facility] Start: 1934 Medicare Annual Wellness Visit [facility] Start: 1934 Screening for osteoporosis Bone Density Scan [facility] End: 05-29-2024 Comprehensive metabolic 2000 panel - Serum or Plasma Comprehensive metabolic panel Lab Routine Hypertensive 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 ([facility]) 1 Occurrences starting 05/29/2023 until 05/29/2024 [employer] Comment on above: 1 Occurrences starting 05/29/2023 until 05/29/2024 ECG 12 lead STAT ECG 12 lead STA T ECG STAT 03/04/2024 12:20 PM EDT [facility] Service Area Work Phone: End: 02-26-2024 Electrophysiology study [facility] Service Are a Work Phone: Comment on above: Once for 1 Occurrences starting 02/26/20 24 until 02/26/2024 End: 05-29-2024 Hemoglobin A1c/Hemoglobin.total in Blood Hemoglobin A1c Lab Routine Type 2 diabetes mellitus without complication, without long-term current use of insulin ([facility]) 1 Occurrences starting 05/29/2023 until 05/29/2024 [employer] Comment on above: 1 Occurrences starting 05/29/2023 until 05/29/2024 End: 03-06-2025 Hemoglobin A1c/Hemoglobin.total in Blood Hemoglobin A1c Lab Routine Type 2 diabetes mellitus without complication, without long-term current use of insulin ([facility]) 1 Occurrences starting 03/06/2024 until 03/06/2025 [employer] Comment on above: 1 Occurrences starting 03/06/2024 until 03/06/2025 End: 05-29-2024 Lipid panel Lipid panel Lab Routine Arteriosclerotic vascular disease 1 Occurrences starting 05/29/2023 until 05/29/2024 [employer] Comment on above: 1 Occurrences starting 05/29/2023 until 05/29/2024 End: 03-06-2025 Magnesium [Mass/volume] in Serum or Plasma Magnesium Lab Routine Hypertensive 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 ([facility]) 1 Occurrences starting 03/06/2024 until 03/06/2025 [facility] Comment on above: 1 Occurrences starting 03/06/2024 until 03/06/2025 End: 03-06-2025 Parathyroid Hormone, intact Parathyroid Hormone, intact Lab Routine Hypertensive 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 ([facility]) 1 Occurrences starting 03/06/2024 until 03/06/2025 [facility] Comment on above: 1 Occurrences starting 03/06/2024 until 03/06/2025 End: 03-06-2025 Phosphate [Mass/volume] in Serum or Plasma Phosphorus Lab Routine Hypertensive 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 ([facility]) 1 Occurrences starting 03/06/2024 until 03/06/2025 [employer] Comment on above: 1 Occurrences starting 03/06/2024 until 03/06/2025 End: 05-29-2024 Protime & INR Protime & INR Lab Routine Paroxysmal atrial fibrillation ([facility]) 1 Occurrences starting 05/29/2023 until 05/29/2024 [employer] Work Phone: Comment on above: 1 Occurrences starting 05/29/2023 until 05/29/2024 End: 05-29-2025 Protime-INR Protime-INR Lab Routine Longstanding persistent atrial fibrillation ([facility]) 1 Occurrences starting 05/29/2024 until 05/29/2025 [employer] Work Phone: Comment on above: 1 Occurrences starting 05/29/2024 until 05/29/2025 End: 05-29-2024 Thyrotropin [Units/volume] in Serum or Plasma TSH Lab Routine Hypothyroidism, unspecified type 1 Occurrences starting 05/29/2023 until 05/29/2024 [facility] Comment on above: 1 Occurrences starting 05/29/2023 until 05/29/2024 End: 03-06-2025 Urate [Mass/volume] in Serum or Plasma Uric acid Lab Routine Hypertensive 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 ([facility]) 1 Occurrences starting 03/06/2024 until 03/06/2025 [employer] Work Phone: Comment on above: 1 Occurrences starting 03/06/2024 until 03/06/2025 End: 03-06-2025 Vitamin D 25 hydroxy Vitamin D 25 hydroxy Lab Routine Hypertensive 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 ([facility]) Stage 4 chronic kidney disease ([facility]) 1 Occurrences starting 03/06/2024 until 03/06/2025 [facility] Comment on above: 1 Occurrences starting 03/06/2024 until 03/06/2025 Immunizations Immunization Date Immunization Notes Care Provider Raquel chow 02-27-2024 Influenza, High-dose , Quadrivalent Phil Furlong DO Work Phone: [facility] 03-30-2023 Influenza, High-dose , Quadrivalent Phil Furlong DO Work Phone: [facility] 03-30-2023 influenza virus vacc ine, unspecified formulation Phil Furlong DO Work Phone: [facility] 02-16-2022 Fluzone High-Dose Quadrivalent 0.7 ML Intramuscular Suspension Prefilled Syringe Philct Morin Work Phone: [facility] 01-28-2021 Fluad Quadrivalent 0 .5 ML Intramuscular Prefilled Syringe Phil G Ronnelllong Work Phone: [facility] 250 DO Work Phone: 07-14-2020 Pfizer-BioNTech COVI D-19 Vacc 30 MCG/0.3ML Intramuscular Suspension [facility] G [facility]long [facility] Work Phone: 07-01-2020 Pfizer-BioNTech COVI D-19 Vacc 30 MCG/0.3ML Intramuscular Suspension Phil Morin Work Phone: [facility] 06-16-2020 COVID-19, mRNA, LNP- S, PF, 30mcg/0.3mL Dose Phil Morin DO Work Phone: [facility] 06-11-2020 Pfizer-BioNTech COVI D-19 Vacc 30 MCG/0.3ML Intramuscular Suspension Phil Morin Work Phone: [place] [address] DO Work Phone: 04-05-2020 pneumococcal polysaccharide vaccine, 23 valent [facility] Work Phone: [place] [address] DO Work Phone: 02-23-2020 Fluad Quadrivalent 0 .5 ML Intramuscular Prefilled Syringe Phil Morin Work Phone: [place] [address] DO Work Phone: 02-19-2020 influenza, seasonal, injectable [facility] Work Phone: [place] [address] DO Work Phone: 07-20-2019 pneumococcal conjuga te vaccine, 13 valent [facility] Work Phone: [place] [address] DO Work Phone: 03-12-2019 pneumococcal conjuga te vaccine, 13 valent [facility] Work Phone: [place] [address] DO Work Phone: 03-12-2019 Seasonal trivalent influenza vaccine, adjuvanted, preservative free [facility] Work Phone: [place] [address] DO Work Phone: 02-18-2019 influenza virus vacc ine, unspecified formulation Phil G Furlong Work Phone: [facility] 250 DO Work Phone: 03-04-2018 influenza virus vacc ine, unspecified formulation Phil Reynagalong Work Phone: [facility] 250 DO Work Phone: 08-10-2017 tetanus toxoid, redu edwin diphtheria toxoid, and acellular pertussis vaccine, adsorbed Phil Reynagalong Work Phone: [facility] 03-21-2017 influenza virus vacc ine, unspecified formulation Phil Reynagalong Work Phone: [place] [address] DO Work Phone: 03-13-2017 influenza, seasonal, injectable Phil Reynagalong Work Phone: [place] [address] DO Work Phone: 02-21-2016 influenza, seasonal, injectable, preservative free Phil Reynagalong Work Phone: [facility] 02-19-2016 influenza virus vacc ine, unspecified formulation Phil Reynagalong Work Phone: [place] [address] DO Work Phone: 07-31-2015 zoster vaccine, live Phil Reynagalong Work Phone: [place] [address] DO Work Phone: 07-31-2015 zoster vaccine, unspecified formulation Phil Reynagalong DO Work Phone: [facility] 02-18-2015 influenza virus vacc ine, unspecified formulation Phil Reynagalong Work Phone: [place] [address] DO Work Phone: 02-17-2015 influenza, seasonal, injectable, preservative free Philct Reynagalong DO Work Phone: [facility] 05-11-2014 pneumococcal polysaccharide vaccine, 23 valent Phil G Furlong Work Phone: [facility] 250 DO Work Phone: 02-18-2014 influenza virus vacc ine, unspecified formulation Phil G Furlong Work Phone: [facility] 250 DO Work Phone: 04-03-2013 pneumococcal conjuga te vaccine, 13 valent Phil G Furlong Work Phone: [place] [address] DO Work Phone: 02-18-2013 influenza virus vacc ine, unspecified formulation Phil Soliz Furlong Work Phone: [place] [address] DO Work Phone: 02-18-2013 pneumococcal polysaccharide vaccine, 23 valent Phil Soliz Furlong Work Phone: [place] [address] DO Work Phone: 12-20-2011 influenza virus vacc ine, unspecified formulation Phil Soliz Furlong Work Phone: [place] [address] DO Work Phone: 05-21-2010 influenza virus vacc ine, unspecified formulation Phil Soliz Furlong Work Phone: [place] [address] DO Work Phone: 05-21-2009 influenza virus vacc ine, unspecified formulation Phil G Furlong Work Phone: [facility] 250 DO Work Phone: 05-21-2008 influenza virus vacc ine, unspecified formulation Phil G Furlong Work Phone: [facility] 250 DO Work Phone: 05-21-2007 pneumococcal polysaccharide vaccine, 23 valent Phil G Furlong Work Phone: [facility] 250 DO Work Phone: 03-28-2002 pneumococcal polysaccharide vaccine, 23 valent Phil G Furlong [facility]: [facility] Work Phone: 03-21-2002 pneumococcal polysaccharide vaccine, 23 valent Phil Furlong DO Work Phone: [facility] 1934 pneumococcal conjuga te vaccine, 7 valent [facility] Payers Date Payer Category Payer Medicare (Managed Care) [facility] [id number] 2023 Self-pay [id number] 2022 Medicare [id number] 1959 Private Health Insurance [id number] 1959 Private Health Insurance [id number] 1934 Unknown [id number] 2.16.840.1.914820.3.579.2. 593 1934 Unknown [id number] 2.16.840.1.544792.3.579.2. 593 1934 Unknown [id number] 2.16.840.1.203943.3.579.2. 593 1934 Unknown [id number] 2.16.840.1.822949.3.579.2. 593 1934 Unknown [id number] 2.16.840.1.725658.3.579.2. 593 1934 Unknown [id number] 2.16.840.1.910191.3.579.2. 593 1934 Unknown [id number] 2.16.840.1.463595.3.579.2. 593 1934 Unknown [id number] 2.16.840.1.709648.3.579.2. 593 1934 Unknown [id number] 2.16.840.1.161778.3.579.2. 593 1934 Unknown [id number] 2.16.840.1.398927.3.579.2. 593 1934 Unknown [id number] 2.16.840.1.794637.3.579.2. 593 1934 Unknown [id number] 2.16.840.1.428291.3.579.2. 593 1934 Unknown [id number] 2.16.840.1.246827.3.579.2. 593 1934 Unknown [id number] 2.16.840.1.217355.3.579.2. 1246 1934 Unknown [id number] 2.16.840.1.798697.3.579.2. 1246 1934 Unknown [id number] 2.16.840.1.258146.3.579.2. 1286 1934 Unknown [id number] 2.16.840.1.632623.3.579.2. 1286 1934 Unknown [id number] 2.16840.1.163049.3.579.2. 1286 1934 Unknown [id number] 2.16840.1.378574.3.579.2. 1286 1934 Unknown [id number] 2.16.840.1.878724.3.579.2. 128 1934 Unknown [id number] 2.16840.1.113561.3.579.2. 1244 1934 Unknown [id number] 2.16.840.1.318083.3.579.2. 1244 1934 Unknown [id number] 2.840.1.321914.3.579.2. 1259 1934 Unknown [id number] 2.840.1.714509.3.579.2. 1259 Medicare Medicare [id number] Medicare Medicare [id number] Unknown Unknown Dean BC/BS [id number] Unknown [id number] 2.840.1.808802.3.579.2. 531 Unknown [id number] 2840.1.346761.3.579.2. 531 Unknown [id number] 2.840.1.294475.3.579.2. 531 Unknown [id number] 2.840.1.138164.3.579.2. 531 Social History Date Type Detail Facility Start: 09-19-2022 End: 11-05-2023 No alcohol use No alcohol use -[place] [address] DO Work Phone: Comment on above: 2 cups coffee daily; Start: 07-19-2019 End: 11-11-2022 Tobacco smoking status NHIS Never smoked tobacco (finding) [facility] Start: 1934 End: 1934 Sex Assigned At Male [facility] Start: 02-28-2022 IBRAHIMA sweet Start: 03-31-2022 End: 07-11-2023 Tobacco use and exposure Smokeless tobacco non-user [facility] [employer] [facility] Start: 11-05-2023 End: 03-04-2024 Alcoholic beverage intake Lifetime non-drinker (finding) [facility] Work Phone: Start: 09-19-2022 End: 11-05-2023 Tobacco use panel [facility] Work Phone: Start: 1935 Sex assigned at Not on file [facility] Start: 10-26-2023 End: 03-04-2024 Exposure to SARS-CoV-2 (event) Not sure [facility] Start: 08-06-2023 End: 03-06-2024 Alcoholic beverage intake Ex-drinker (finding) [facility] Has the [employer], or [employer] threatened to shut off services in your home in past 12Mo No [facility] Are you now , , , , never or living with a partner? [facility] [employer] [facility] How often to you hav e a drink containing alcohol? Never [facility] How many standard drinks containing alcohol do you have on a typical day? Patient does not drink [facility] Do you feel stress - tense, restless, nervous, or anxious, or unable to sleep at night because your mind is troubled all the time - these days [OSQ] Not at all [facility] Start: 12-24-2014 Sex Male (finding) [facility] [employer] [facility] Medical Equipment Procedure Code Equipment Code Equipment Origin al Text Equipment Identifier Dates Willow Rodriguez Icd D f1 Connector [id number] Start: 03-04-2024 Goals Date Patient Goal Desired Activity /State Clinical Notes 05-29-2023 to 07-29-2024 TALI Mitchell - 07/29/2024 12:30 PM EDTTelephone Encounter - TALI Mitchell - 07/21/2024 2:56 PM ESTTelephone Encounter - Swati S TALI Mejia - 07/21/2024 2:56 PM EST Note Date & Type Note Facility 07-29-2024 History of Present illness Narrative Follow up: Pt would like to return the aid. He stated the aid is making his ear sore. Offered to remake the mold, however, he felt the part behind his ear was causing discomfort as well. He would rather complete a return and possibly utilize his benefit in the future. Pt stated he heard well with the new aid, but is able to use his older MAGALI for now and would prefer to do this. Processed return in [employer] portal and processed return on [employer]'s website. Pt was given [employer]'s number in the event he has any questions regarding his refund. Pt to let us know if he would like to consider a hearing aid in the future. documented in this encounter [facility] 07-21-2024 Telephone encounter Note Received a message that pt had some questions about his hearing aid. Returned call and LM for pt [facility] 07-21-2024 Miscellaneous Notes Received a message that pt had some questions about his hearing aid. Returned call and LM for pt documented in this encounter [facility] 07-18-2024 History of Present illness Narrative HAF: Pt was seen today for the fitting of his new [employer] Edge AI 24 MAGALI-312 coupled to size 4P fixer supervisor and custom MAGALI mold. Aid was set to experienced user, VC active. Pt pleased with initial settings and fit. His previous aid had a mute button activated, which he prefers to use when he speaks to his one friend. He would like this active on his current aid, which this was turned on. Pt is an experienced wearer and is familiar with insertion/removal, changing batteries, and basic maintenance. Discussed warranty and trial period. Pt scheduled to return in 2 weeks, but was encouraged to let us know if any problems were to arise in the interim. documented in this encounter [facility] 06-24-2024 History of Present illness Narrative History: Patient was referred for an audiological evaluation by Sweta. He is aware of hearing loss, wearing amplification in the right ear (He wears a [employer] MAGALI 312.) Pt has a history of [...] He would like to proceed with 1 [employer] Edge AI 24 MAGALI in caramel with size 4P fixer supervisor. Cost collected in portal. Pt scheduled for HAF 07-18-2024 documented in this encounter [facility] 05-28-2024 Miscellaneous Notes Patient came in to check on his INR and doctor looked at it and stated that he needs to continue current regimen and to recheck in 1 month. Can you please put in a new standing order for [facility] for the new year. Please then send to [facility] documented in this encounter [employer] 05-28-2024 Telephone encounter Note Patient came in to check on his INR and doctor looked at it and stated that he needs to continue current regimen and to recheck in 1 month. Can you please put in a new standing order for [facility] for the new year. 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 CMP done prior to his pacemaker surgery was reviewed and showed stage 4 chronic kidney disease which is stable. Hypertensive 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 ([facility]) - Uric acid; Future - Magnesium; Future - Vitamin D 25 hydroxy; Future - Parathyroid Hormone, intact; Future - Phosphorus; Future Check chronic kidney disease labs Cardiomyopathy ([facility]) Stable. Follow up with gas well pumper Stage 4 chronic kidney disease ([facility]) - Vitamin D 25 hydroxy; Future Check chronic kidney disease labs Type 2 diabetes mellitus without complication, without long-term current use of insulin ([facility]) - Hemoglobin A1c; Future Check A1c. Last A1c was 6.5% with diet control only. documented in this encounter [facility] 03-04-2024 Attending History and physical note [...] Mckenzie for generator change for device at [facility]. 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 He has an atrial pacesetter lead as well as a Riata lead in the RV. He has chronic atrial lead noise reversion episodes. He has 98% atrial paced and ventricular plate paced less than 1% the time. His device reached [place] in January 2024. He is here today [...] Last device interrogation 02/05/2024 shows device at [facility], predominantly atrial paced, minimal ventricular pacing, [...] his ICD, initially placed in 2002, at [facility]. He will need a generator change. [...] routine generator change of his device at [facility]. His device will reach end-of-life in April. The risks and benefits of generator change were discussed in detail, including infection, bleeding, hematoma, damage to the existing leads, etc. The patient is agreeable to move forward with generator change. Name: Donovan Jacome Attending: Garland Rose MD Procedure: ICD generator change Date desired: As soon as possible Diagnosis: Device at [facility] Vendor if applicable: [employer] Expected anesthesia: [...] or concerns. Garland Rose MD Clinical Cardiac Rn Iv Therapy, [facility] [place] Transit Mechanicfinal assembler, [facility] [employer] Director of Atrial Fibrillation Ablation, [facility] [employer] Operator of Ventricular Arrhythmias Research, [facility] Office [facility] Work Phone: 03-04-2024 History and physical [...] Mckenzie for generator change for device at [facility]. 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 He has an atrial pacesetter lead as well as a Riata lead in the RV. He has chronic atrial lead noise reversion episodes. He has 98% atrial paced and ventricular plate paced less than 1% the time. His device reached [facility] in January 2024. He is here [...] , ALT Assessment/Plan Assessment and Plan: Donovan Jcaome is a 88 y.o. year old male patient who is referred for management and evaluation of his ICD, initially placed in 2002, at [facility]. He will need a generator change. [...] routine generator change of his device at [facility]. His device will reach end-of-life in April. The risks and benefits of generator change were discussed in detail, including infection, bleeding, hematoma, damage to the existing leads, etc. The patient is agreeable to move forward with generator change. Name: Donovan Jacome Attending: Garland Rose MD Procedure: ICD generator change Date desired: As soon as possible Diagnosis: Device at [facility] Vendor if applicable: [employer] Expected anesthesia: [...] or concerns. Garland Rose MD Clinical Cardiac Rn Iv Therapy, [facility] [place] [employer] Mechanicfinal assembler, [facility] [employer] Director of Atrial Fibrillation Ablation, [facility] [employer] Saw Operator of Ventricular Arrhythmias Research, [facility] Office documented in this encounter [facility] Work Phone: 03-04-2024 Nurse Note Discharge instructions reviewed with patient and son. Discussed in depth post procedure restrictions and follow up appointments. Questions and concerns addressed. Left upper chest remains stable and unchanged. Plan to dc home. [facility] Work Phone: 03-04-2024 Nurse Note Discharge [...] continue to monitor. documented in this encounter [facility] Work Phone: 03-04-2024 Nurse Note Patient returned from EP lab, sp ICD gen change. Left upper chest incision closed with aquacel dressing and CDI. Ice pack applied to site. Patient A&Ox4 and has no c/o at this time. VSS. Family at bedside, will continue to monitor. [facility] Work Phone: 03-04-2024 Hospital Discharge instructions Aleena Fairbanks, ALEXANDRO-INFORMATION TECHNOLOGY DIRECTOR - 03/04/2024 3:39 PM EDT Images from [...] have been instructed by the device company scheduling representative regarding remote home monitoring. There are [...] after visit summary documented in this encounter [facility] Work Phone: 03-04-2024 Note Formatting of this n ote might be different from the original. Sedation Plan ASA 2 Mallampati class: I. Risks, benefits, and alternatives discussed with patient. [facility] Work Phone: 03-04-2024 Miscellaneous Notes Sedation Plan ASA 2 Mallampati class: I. Risks, benefits, and alternatives discussed with patient. documented in this encounter [facility] Work Phone: 02-26-2024 History of Present [...] Mckenzie for generator change for device at [facility]. 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 He has an atrial pacesetter lead as well as a Riata lead in the RV. He has chronic atrial lead noise reversion episodes. He has 98% atrial paced and ventricular plate paced less than 1% the time. His device reached [facility] in January 2024. He is here [...] Hyperlipidemia Past Medical and Surgical History: Mr. Jaocme has a past medical history of Other [...] Last device interrogation 02/05/2024 shows device at [facility], predominantly atrial paced, minimal ventricular pacing, [...] his ICD, initially placed in 2002, at [facility]. He will need a generator change. [...] routine generator change of his device at [facility]. His device will reach end-of-life in April. The risks and benefits of generator change were discussed in detail, including infection, bleeding, hematoma, damage to the existing leads, etc. The patient is agreeable to move forward with generator change. Name: Donovan Jacome Attending: Garland Rose MD Procedure: ICD generator change Date desired: As soon as possible Diagnosis: Device at [facility] Vendor if applicable: [employer] Expected anesthesia: [...] or concerns. Garland Rose MD Clinical Cardiac Rn Iv Therapy, [facility] [place] [employer] Mechanicfinal assembler, [facility] [employer] Director of Atrial Fibrillation Ablation, [facility] [employer] Saw Operator of Ventricular Arrhythmias Research, [facility] Office documented in this encounter [facility] Work Phone: 11-05-2023 History of Present [...] Attestation By signing my name below, I, Teo Parnell LPNibchristiano attest that this documentation has been prepared [...] discussion and plan. documented in this encounter [facility] Work Phone: 11-05-2023 Instructions Dex Crump [...] of your visit. documented in this encounter [facility] Work Phone: 08-06-2023 History of Present [...] and renal disease with (congestive) heart failure ([facility]) - TSH; Future - Comprehensive metabolic panel; Future Blood pressure at goal. Continue current regimen. Check CMP and TSH. Hyperlipidemia, unspecified hyperlipidemia type - Lipid panel; Future Check lipid panel Stage 4 chronic kidney disease ([facility]) TSH; Future Check TSH and CMP. Type 2 diabetes mellitus without complication, without long-term current use of insulin ([facility]) - Hemoglobin A1c; Future - TSH; Future Check A1c. Hyperparathyroidism ([facility]) Check kidney function test. Malignant melanoma of scalp or neck ([facility]) He does not want to go back to see the specialist. I am not sure what surgery the specialist had planned Longstanding persistent atrial fibrillation ([facility]) Seems to be in sinus rhythm now. Continue Eliquis Paroxysmal atrial fibrillation ([facility]) Microalbuminuric diabetic nephropathy ([facility]) Check labs documented in this encounter [employer] 05-29-2023 History of Present illness Narrative Subjective [...] orders for this visit: Paroxysmal atrial fibrillation ([facility]) - Protime & INR; Future New order for protime and INR given to the patient. I will also fax to the [facility]. Hypertensive 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 ([facility]) - Comprehensive metabolic panel; Future Check CMP. [...] complication, without long-term current use of insulin ([facility]) - Hemoglobin A1c; Future Check A1c Arteriosclerotic vascular disease - Lipid panel; Future Check lipid panel documented [facility] note No assessment inform ation available [facility] Work Phone: Evaluation note N/A Dept. of Dermato logy Evaluation note Diagnosis Arteriosclerotic cardiovascular disease (ASCVD)- Primary Unspecified cardiovascular disease Essential hypertension Unspecified essential hypertension Mixed hyperlipidemia Ventricular tachycardia (Multi) Paroxysmal ventricular tachycardia ICD (implantable cardioverter-defibrillator) in place Dilated cardiomyopathy (Multi) Other primary cardiomyopathies Ischemic cardiomyopathy Other specified forms of chronic ischemic heart disease documented in this encounter [facility] Work Phone: Evaluation note* Diagnosis ICD (implantable cardioverter-defibrillator) in place Ventricular tachycardia (Multi) Paroxysmal ventricular tachycardia Ischemic cardiomyopathy Other specified forms of chronic ischemic heart disease ICD (implantable cardioverter-defibrillator) in place Ventricular tachycardia (Multi) Paroxysmal ventricular tachycardia ICD (implantable cardioverter-defibrillator) in place Ventricular tachycardia (Multi) Paroxysmal ventricular tachycardia documented in this encounter [facility] Work Phone: Evaluation note* Diagnosis ICD (implantable cardioverter-defibrillator) in place- Primary Ventricular tachycardia (Multi) Paroxysmal ventricular tachycardia documented in this encounter [facility] Work Phone: Evaluation note* Diagnosis Longstanding persistent atrial fibrillation (CMS-HCC)- Primary [facility] Diagnosis Sensorineural hearing loss, bilateral- Primary [facility] Paroxysmal atrial fibrillation (CMS-HCC)- Primary Atrial fibrillation Hypertensive 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 ([facility]) Essential hypertension Unspecified essential hypertension Hypothyroidism, unspecified type Type 2 diabetes mellitus without complication, without long-term current use of insulin ([facility]) Arteriosclerotic vascular disease Generalized and unspecified atherosclerosis [facility] Diagnosis Longstanding persistent atrial fibrillation (CMS-HCC)- Primary [facility] Diagnosis Hypertensive heart and renal [...] diabetic nephropathy (CMS-HCC) [facility] Diagnosis Type 2 diabetes mellitus without complication, without long-term current use of insulin (CMS-HCC)- Primary 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) [facility] Diagnosis Hypertension associated with 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 (CMS-HCC)- Primary Hypertensive 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 ([facility]) Cardiomyopathy ([facility]) Stage 4 chronic kidney disease ([facility]) Type 2 diabetes mellitus without complication, without long-term current use of insulin ([facility]) [facility] Diagnosis Vitamin D deficiency- Primary [facility] Diagnosis Sensorineural hearing loss, bilateral- Primary [facility] Patient returns in follow- up of problems as noted. He is doing [...] the above we will continue as is. [facility] [employer] DO Work Phone: History of Present illness [...] the above we will continue as is. [facility] [employer] DO Work Phone: History of Present illness [...] we [facility] [employer]et 250 DO Work Phone: History of Present [...] significant cardiac hx with decreased cardiac function [facility] Work Phone: History of Present illness NarrativePatient [...] we believe his cardiac status to be stable.[facility] [employer] 250 DO Work Phone: History of Present [...] we suggested continued therapy as before without change.-[facility]Shahzad 250 DO Work Phone: InstructionsNot on filedocumented in this encounter [facility]Not on filedocumented in this encounter [facility] SystemInstructionsNot on filedocumented in this encounter [facility] SystemInstructionsNot on filedocumented in this encounter [facility] SystemInstructionsNot on filedocumented in this encounter [facility] SystemReason for referral (narrative)* Name Reason for referral NA NA Dept. of Dermatology Reason for referral (narrative)* Consultation (Routine) - Authorized Specialty Diagnoses / Procedures Referred By Nuvia ware Referred To Contact Cardiology Diagnoses Arteriosclerotic cardiovascular disease (ASCVD) Procedures Follow Up In Cardiology Aidan Langston MD [address] [place] [id number] Adri Mckenzie MD [address] [place] [id number] Referral ID Status Reason Start Date Expiration Date V isits Requested Visits Authorized [id number] Authorized 11/05/2023 11/04/2024 1 1 [facility] Work Phone: Rekxrh for visit Narrative* Auth/Cert Specialty Diagnoses / Procedures Referred By Contlogan t Referred To Contact Diagnoses ICD (implantable cardioverter-defibrillator) in place Ventricular tachycardia (Multi) ICD (implantable cardioverter-defibrillator) in place [Z95.810] Ventricular tachycardia (Multi) [I47.20] Procedures CO RMVL IMPLTBL DFB PLSE GEN W/RPLCMT PLSE GEN 2 LD ICD DC Generator Change Garland Rose MD [address] [place] [address] [address] [place] [address] Referral ID Status Reason Start Date Expiration Date Visits Re quested Visits Authorized [id number] 1 1 [facility] Work Phone: Summary Purpose Family History [...] 12 Lead Garland Rose MD [address] [place] [address] Referral ID Status Reason Start Date Expiration Date V isits Requested Visits Authorized [id number] Authorized 02/26/2024 02/25/2025 1 1 Specialty Diagnoses / Procedures Referred By Contac t Referred To Contact Cardiology Diagnoses ICD (implantable cardioverter-defibrillator) in place Procedures Cardiac Device Check - In Clinic Aleena Fairbanks APRN-INFORMATION TECHNOLOGY DIRECTOR [address] [address] Referral ID Status Reason Start Date Expiration Date Visits Requested Visits Authorized [id number] Pending Review Perform Procedure 03/04/2025 1 1 Specialty Diagnoses / Procedures Referred By Inesac t Referred To Contact Cardiology Diagnoses ICD (implantable cardioverter-defibrillator) in place Procedures Follow Up In Cardiology Aleena Fairbanks APRN-INFORMATION TECHNOLOGY DIRECTOR [address] [facility], [address] [address] Referral ID Status Reason Start Date Expiration Date V isits Requested Visits Authorized [id number] Authorized 03/04/2024 03/04/2025 1 1 Additional Source Comments (unrecognized sect ion and content) No Status Records FoundNo Status Records FoundNo Status Records FoundNo Status Records FoundNo Status Records FoundNo Status Records FoundNo Status Records FoundNo Status Records FoundNo Status Records FoundNo Status Records FoundNo Status Records FoundNo Status Records Found INFORMATION SOURCE (unrecogn ized section and content) DATE CREATED AUTHOR [facility]/08/2019 [facility] DATE CREATED AUTHOR AUTHOR'S ORGANIZ ATION 02/27/2020 [facility] DATE CREATED AUTHOR AUTHOR'S ORGANIZ ATION 08/24/2021 [facility] DATE CREATED AUTHOR AUTHOR'S ORGANIZ ATION 10/27/2022 [facility] DATE CREATED AUTHOR AUTHOR'S ORGANIZ ATION 01/14/2023 [employer] DATE CREATED AUTHOR AUTHOR'S ORGANIZ ATION 03/06/2024 [facility] DATE CREATED AUTHOR AUTHOR'S ORGANIZ ATION 03/06/2024 [facility] DATE CREATED AUTHOR AUTHOR'S ORGANIZ ATION 03/08/2024 [facility] DATE CREATED AUTHOR AUTHOR'S ORGANIZ ATION 03/09/2024 [facility] DATE CREATED AUTHOR AUTHOR'S ORGANIZ ATION 03/13/2024 [facility] DATE CREATED AUTHOR AUTHOR'S ORGANIZ ATION 04/18/2024 [facility] DATE CREATED AUTHOR AUTHOR'S ORGANIZ ATION 07/20/2024 [facility] EPIC Care Teams (unrecognized [...] June 28, 2023 End: June 28, 2023 Team Status: Inactive Member Role Status Dates Phil Morin Primary Care Provider Active Start: September 27, 2023 End: September 27, 2023 Aidan Langston MD Attending Provider Active Start: September 27, 2023 End: September 27, 2023 [address] Transcriber Relationship Specialty Start Date End Date Phil Morin DO [address], [place] [address] PCP - General 05/06/14 Team Status: Inactive Member Role Status Dates Phil RonnellDO bret Primary Care Provider Active Start: December 27, 2023 End: December 27, 2023 Aidan Langston MD Attending Provider Active Start: December 27, 2023 End: December 27, 2023 Team Status: Inactive Member Role Status Dates Phil Ronnellbret Primary Care Provider Active Start: February 05, 2024 End: February 05, 2024 Adri Mckenzie MD Attending Provider Active Start: February 05, 2024 End: February 05, 2024 Court Transcriber Relationship Specialty Start Date End Date Phil Morin DO [address], [place] [address] PCP - General Family Medicine 02/26/24 Court Transcriber Relationship Specialty Start Date End Date Phil Morin DO [address], [place] [address] PCP - General Family Medicine 02/26/24 Court Transcriber Relationship Specialty Start Date End Date RonnellbretPhil DO [address], [place] [address] PCP - General Family Medicine 03/07/22 Court Transcriber Relationship Specialty Start Date End Date RonnellbretBrayanPhil Martínez [address] [place] [address] PCP - General Family Medicine 03/07/22 Court Transcriber Relationship Specialty Start Date End Date Phil Morin MD [address], [place] [address] PCP - General Family Medicine 06/24/24 Court Transcriber Relationship Specialty Start Date End Date Phil Morin MD [address], [place] [address] PCP - General Family Medicine 06/24/24 Court Transcriber Relationship Specialty Start Date End Date Phil Morin DO [address], [place] [address] PCP - General Family Medicine 03/07/22 Court Transcriber Relationship Specialty Start Date End Date Phil Morin DO [address] [place] [address] PCP - General Family Medicine 03/07/22 [address] Transcriber Relationship Specialty Start Date End Date Phil Morin DO [address] [place] [address] PCP - General Family Medicine 03/07/22 [address] Transcriber Relationship Specialty Start Date End Date Phil Morin MD [address] [place] [address] PCP - General Family Medicine 06/24/24 Court Transcriber Relationship Specialty Start Date End Date Phil Morin MD [address] [facility], [place] [address] PCP - General Family Medicine 06/24/24 Goals [...] (unrecogniz ed section and content) Reason Comments Follow-up 9m Reason Comments Rapid Heart Rate Specialty Diagnoses / Procedures Referred By Contac t Referred To Contact Cardiology Diagnoses ICD (implantable cardioverter-defibrillator) in place Ventricular tachycardia (Multi) Ischemic cardiomyopathy Adri Mckenzie MD [address] [place], [place] [address] Referral ID Status Reason Start Date Expiration Date Visits Requested Visits Authorized [id number] Authorized Specialty Services Required 02/12/2024 02/11/2025 1 1 Reason Comments concerns about meds and blood pressure Reason Comments Hypertension Hyperlipidemia Reason Comments Med Refill Scheduled Active and Recently Administ ered Medications [...] 1230 (Due)1500 (New Bag - Provider: Jon Patiño, RN - Comment: pre-op antibiotic)1512 (Stopped - [...] BE BASED ON THE PRIMARY CLINICAL RECORDS. [employer] [facility] [facility]. provides no warranty or guarantee of the accuracy or completeness of information in this document.
[2024-07-30 13:16] LABS: INR 2.41; Prothrombin Time 23.4 sec (9.0-11.6)
== END 2024-07-30 12:47 | disposition home or self-care (01) ==
PROVIDERS: PCP Family Medicine; Visit Provider Family Medicine
DX: I48.11 Longstanding persistent atrial fibrillation (principal)
CPT/HCPCS: 36415; 85610